=== PATIENT | female | born 1990 | race Caucasian/White ===

== ENCOUNTER → 2016-05-16 | Outpatient (CLI) | payer OTHER ==
--- NOTE | 2016-05-16 11:55 | XR ---
EXAMINATION TYPE: XR lumbar spine 2 or 3V DATE OF EXAM ORDERED: 05/16/2016 11:19 AM HISTORY: M54.5 LBP. COMPARISON: None. FINDINGS: Vertebral body height and alignment are maintained. There may be some mild disc space narr owing at L5-S1. The remaining disc levels are normal. The facets. Unremarkable. The pedicles are inta ct. IMPRESSION: 1. NO ACUTE OSSEOUS LESION. 2. I CANNOT EXCLUDE MILD DISC SPACE LOSS AT L5-S1.
== END ==
LOC: RADXRMAIN 11:05
PROVIDERS: ATTEND Physician Assistant
DX: M54.5 Low back pain (principal)
CPT/HCPCS: 72100

== ENCOUNTER → 2016-09-04 | Outpatient (CLI) | payer OTHER ==
--- NOTE | 2016-09-04 09:34 | MR ---
EXAMINATION TYPE: MR lumbar spine wo con DATE OF EXAM: 09/04/2016 COMPARISON: Plain film 05/16/2016 HISTORY: intervertebral disc degeneration, low back pain TECHNIQUE: Multiplanar, multisequence images of the lumbar spine were acquired. L1-L2: Normal disc appearance without desiccation. No herniation, protrusion or disc bulging. No ca nal stenosis is present. Foramina are patent bilaterally. L2-L3: Normal disc appearance without desiccation. No herniation, protrusion or disc bulging. No ca nal stenosis is present. There is mild facet arthropathy. Foramina are patent bilaterally. L3-L4: Mild facet arthropathy is noted. No disc herniation or significant central stenosis, neural fo raminal encroachment. L4-L5: Normal disc appearance without desiccation. No herniation, protrusion or disc bulging. No ca nal stenosis is present. Hypertrophy of the ligamentum flavum encroaches only minimally on the latera l recesses Foramina are patent bilaterally. L5-S1: Normal disc appearance without desiccation. No herniation, protrusion or disc bulging. No ca nal stenosis is present. There is mild facet arthropathy Foramina are patent bilaterally. Lumbar segments are intact. No paraspinal masses are identified. Conus medullaris has a normal appe arance. Lumbar vertebral bodies show preserved height and alignment. Multilevel Schmorl's node format ion is present. Loss of disc height and signal present at L5-S1. IMPRESSION: No evident disc herniation. Facet arthropathy is mild.
== END | disposition home or self-care (01) ==
LOC: RADMRIMAIN 07:02
PROVIDERS: ATTEND Physician Assistant
DX: M46.06 Spinal enthesopathy, lumbar region (principal)
CPT/HCPCS: 72148

== ENCOUNTER 2017-11-08 11:31 | Emergency (ER) | payer OTHER ==
[2017-11-08 11:51] VITALS: RESP 18
[2017-11-08] MEDS ORDERED: SODIUM CHLORIDE 0.9% 1,000 ML IV ONE (13:06)
[2017-11-08] MEDS ORDERED: CLINDAMYCIN 600 MG in DEXTROSE 5% IN WATER 50 ML IVPB STA ×2 (13:06)
--- NOTE | 2017-11-08 13:06 | ED ---
Skin/Abscess/FB HPI - General Chief complaint: Skin/Abscess/Foreign Body Stated complaint: Abscess Time Seen by Provider: 11/08/17 12:05 Source: patient, RN notes reviewed, old records reviewed Mode of arrival: ambulatory Limitations: no limitations - History of Present Illness Initial comments: Patient is a 27-year-old female type I diabetic presents emergency department chief complaint of an abscess over her left buttocks. Patient reports that she called her doctor and her doctor prescribed her azithromycin. She reports she took antibiotic for 5 days. She states that since getting any better. She initially did have some drainage from the site. Patient reports that she's had multiple infection such as this in the past. Patient states she's had no fevers or chills. She reports that she's had no pain with bowel habits or urination. Her ports that she does have a history of MRSA. Patient denies any recent fever, chills, shortness of breath, chest pain, back pain, abdominal pain , nausea vomiting, numbness or tingling, dysuria or hematuria, constipation or diarrhea, headaches or visual changes, or any other current symptoms - Related Data Home Medications Medication Instructions Recorded Confirmed Insulin Aspart (For Pump) [NovoLOG 0.01 unit SQ-PUMP CONTINUOUS 11/08/17 (For Pump)] Kelnor 1 tab PO DAILY 11/08/17 11/08/17 Lisinopril [Zestril] 10 mg PO DAILY 11/08/17 11/08/17 Previous Rx's Medication Instructions Recorded HYDROcodone/APAP 5-325MG [[place] 1 tab PO Q6HR PRN #10 tab 11/08/17 5-325] Sulfamethox-Tmp 800-160Mg [Bactrim 2 tab PO Q12HR #40 tab 11/08/17 DS 800-160 mg] Allergies Allergy/AdvReac Type Severity Reaction Status Date / Time cephalexin [From Keflex] Allergy Unknown Verified 11/08/17 12:34 Review of Systems ROS Statement: Those systems with pertinent positive or pertinent negative responses have been documented in the HPI. ROS Other: All systems not noted in ROS Statement are negative. Past Medical History Past Medical History: Asthma, Diabetes Mellitus, GERD/Reflux, Skin Disorder Additional Past Medical History / Comment(s): hx. hiatal hernia, wounds in groin area, buttocks-thought was ingrown hairs History of Any Multi-Drug Resistant Organisms: MRSA Date of last positivie culture/infection: 2009 MDRO Source:: unknown Past Surgical History: Section Additional Past Surgical History / Comment(s): cervical abblation Past Anesthesia/Blood Transfusion Reactions: No Reported Reaction, Motion Sickness Past Psychological History: Depression Smoking Status: Current some day smoker Past Alcohol Use History: Occasional Past Drug Use History: None Reported - Past Family History Mother Family Medical History: Thyroid Disorder Additional Family Medical History / Comment(s): gestational diabetes Father Additional Family Medical History / Comment(s): crohnes disease General Exam - General Exam Comments Initial Comments: Patient is a 27-year-old female. Alert and oriented 3. She is here with her mother. Appears in no significant distress at this time. Limitations: no limitations General appearance: alert, in no apparent distress Head exam: Present: atraumatic, normocephalic, normal inspection Eye exam: Present: normal appearance, PERRL, EOMI. Absent: scleral icterus, conjunctival injection, periorbital swelling ENT exam: Present: normal exam, mucous membranes moist Neck exam: Present: normal inspection. Absent: tenderness, meningismus, lymphadenopathy Respiratory exam: Present: normal lung sounds bilaterally. Absent: respiratory distress, wheezes, rales, rhonchi, stridor Cardiovascular Exam: Present: regular rate, normal rhythm, normal heart sounds. Absent: systolic murmur, diastolic murmur, rubs, gallop, clicks GI/Abdominal exam: Present: soft, normal bowel sounds. Absent: distended, tenderness, guarding, rebound, rigid External exam: Present: other (Patient has a 3 cm x 4 cm abscess over the left buttocks. No evidence of rectal or perianal abscess. The abscess is not near the rectum.). Absent: normal external exam Extremities exam: Present: normal inspection, full ROM, normal capillary refill. Absent: tenderness, pedal edema, joint swelling, calf tenderness Back exam: Present: normal inspection Neurological exam: Present: alert, oriented X3, CN II-XII intact Psychiatric exam: Present: normal affect, normal mood Skin exam: Present: warm, dry, intact, normal color. Absent: rash Course Vital Signs 11/08/17 11/08/17 11:48 15:41 Temperature 98.4 F 98.1 F Pulse Rate 113 H 96 Respiratory 18 18 Rate Blood Pressure 116/81 123/84 O2 Sat by Pulse 99 96 Oximetry Procedures - Incision & Drainage Site: buttock (Left buttock) Size (cm): 4 Anesthetic Used: lidocaine 1% Amount (mLs): 5 I&D Cleaning Method: Iodine Sterile Field Used?: Yes Scalpel Used: #11 I&D Drainage Obtained: Pus, Blood Packing: Iodoform Culture Obtained?: Yes Complications: pain Patient Tolerated Procedure: well, no complications Medical Decision Making - Medical Decision Making 27-year-old female stay with one week of abscess of her left buttocks. PCP prescribed her azithromycin. She reports abscess continued to grow. Patient last evening antibiotic was yesterday. Today she presents with worsening meter abscess over left buttocks. No evidence of rectal abscess or perianal abscess at this time. The abscess is far removed from the actual rectum. Ultrasound was placed over the area and shows a 3 cm deep abscess. Patient was anesthetized with 1% lidocaine box 5 mL infiltrated around the area. Patient's wound was opened with an 11 blade and approximately 10 mL of purulent fluid was removed. I did place iodoform packing. I advised Patient she should follow-up with the on-call general surgeon. Given a referral for Dr. Montalvo. I discussed that she should return to the emergency department if any alarming signs or symptoms occur. During sits baths. I will start the Patient on Bactrim. I did obtain blood work and culture. White blood cell count normal limits. Vital signs are stable. - Lab Data Result diagrams: 11/08/17 13:45 11/08/17 13:45 Lab Results 11/08/17 11/08/17 Range/Units 13:45 13:45 WBC 8.9 (3.8-10.6) k/uL RBC 4.41 (3.80-5.40) m/uL Hgb 13.1 (11.4-16.0) gm/dL Hct 38.1 (34.0-46.0) % MCV 86.5 (80.0-100.0) fL MCH 29.8 (25.0-35.0) pg MCHC 34.4 (31.0-37.0) g/dL RDW 13.1 (11.5-15.5) % Plt Count 279 (150-450) k/uL Neutrophils % 64 % Lymphocytes % 28 % Monocytes % 5 % Eosinophils % 1 % Basophils % 0 % Neutrophils # 5.7 (1.3-7.7) k/uL Lymphocytes # 2.5 (1.0-4.8) k/uL Monocytes # 0.5 (0-1.0) k/uL Eosinophils # 0.1 (0-0.7) k/uL Basophils # 0.0 (0-0.2) k/uL Sodium 141 (137-145) mmol/L Potassium 3.3 L (3.5-5.1) mmol/L Chloride 106 (98-107) mmol/L Carbon Dioxide 27 (22-30) mmol/L Anion Gap 8 mmol/L BUN 11 (7-17) mg/dL Creatinine 0.42 L (0.52-1.04) mg/dL Est GFR (CKD-EPI)AfAm >90 (>60 ml/min/1.73 sqM) Est GFR (CKD-EPI)NonAf >90 (>60 ml/min/1.73 sqM) Glucose 88 (74-99) mg/dL Calcium 9.3 (8.4-10.2) mg/dL Total Bilirubin 0.4 (0.2-1.3) mg/dL AST 10 L (14-36) U/L ALT 16 (9-52) U/L Alkaline Phosphatase 94 (38-126) U/L Total Protein 6.6 (6.3-8.2) g/dL Albumin 3.3 L (3.5-5.0) g/dL Disposition Clinical Impression: Left buttock abscess Disposition: HOME SELF-CARE Condition: Good Instructions: Abscess (ED) Additional Instructions: Patient advised to follow-up with primary care physician and general surgeon. Patient should have the packing removed in 2 days. Do warm salt soaks. Return to the emergency department if any alarming signs or symptoms occur. Prescriptions: HYDROcodone/APAP 5-325MG [[place] 5-325] 1 tab PO Q6HR PRN #10 tab PRN Reason: Pain Sulfamethox-Tmp 800-160Mg [Bactrim DS 800-160 mg] 2 tab PO Q12HR #40 tab Is patient prescribed a controlled substance at d/c from ED?: No Referrals: Mohit Curran MD [Primary Care Provider] - 1-2 days Meredith Louis MD [STAFF PHYSICIAN] - 1-2 days Time of Disposition: 15:09
[2017-11-08] MEDS ORDERED: SODIUM CHLORIDE 0.9% 1,000 ML IV SCH (13:15)
[2017-11-08] MEDS ORDERED: MORPHINE SULFATE 4 MG/ML SYRINGE IVP STA (13:21)
[2017-11-08 13:56] LABS: Basophils % (A) 0 %; Eosinophils # (A) 0.1 k/uL (0-0.7); Eosinophils % (A) 1 %; HCT 38.1 % (34.0-46.0); HGB 13.1 gm/dL (11.4-16.0); Lymphocytes # (A) 2.5 k/uL (1.0-4.8); Lymphocytes % (A) 28 %; MCH 29.8 pg (25.0-35.0); MCHC 34.4 g/dL (31.0-37.0); MCV 86.5 fL (80.0-100.0); Mean Platelet Volume 6.8; Monocytes # (A) 0.5 k/uL (0-1.0); Monocytes % (A) 5 %; Neutrophils # (A) 5.7 k/uL (1.3-7.7); Neutrophils % (A) 64 %; Platelet Count 279 k/uL (150-450); RBC 4.41 m/uL (3.80-5.40); RDW 13.1 % (11.5-15.5); WBC 8.9 k/uL (3.8-10.6)
[2017-11-08 14:06] LABS: ALT 16 U/L (9-52); AST 10 U/L (14-36); Albumin 3.3 g/dL (3.5-5.0); Alkaline Phosphatase 94 U/L (38-126); Anion Gap 8 mmol/L; Blood Urea Nitrogen 11 mg/dL (7-17); Calcium 9.3 mg/dL (8.4-10.2); Carbon Dioxide 27 mmol/L (22-30); Chloride 106 mmol/L (98-107); Glucose 88 mg/dL (74-99); Potassium 3.3 mmol/L (3.5-5.1); Sodium 141 mmol/L (137-145); Total Bilirubin 0.4 mg/dL (0.2-1.3); Total Protein 6.6 g/dL (6.3-8.2)
[2017-11-08] MEDS ORDERED: LIDOCAINE 1% INJ 10MG/ML (20 ML MDV) SQ STA (14:13)
[2017-11-08] MEDS ORDERED: SULFAMETH-TMP DS STARTER PACK 2 TAB BTL PO STA (15:38)
[2017-11-08 15:42] VITALS: BP 123/84; PULSE 96; TEMP 98.1
== END 2017-11-08 15:41 | disposition home or self-care (01) ==
LOC: EC 11:31
DX: L02.31 Cutaneous abscess of buttock (principal); E11.9 Type 2 diabetes mellitus without complications; F17.200 Nicotine dependence, unspecified, uncomplicated; Z79.4 Long term (current) use of insulin; Z79.899 Other long term (current) drug therapy; Z88.1 Allergy status to other antibiotic agents
CPT/HCPCS: 99283; 10060; 36415; 80053; 85025; 87040; 87070; 87205; 96365; 96375; 96361; J2270; J2001

== ENCOUNTER 2017-11-09 17:20 | Emergency (ER) | payer OTHER ==
--- NOTE | 2017-11-09 19:34 | ED ---
General Adult HPI - General Chief complaint: Skin/Abscess/Foreign Body Stated complaint: Abscess on L Buttock Time Seen by Provider: 11/09/17 19:33 Source: patient Mode of arrival: ambulatory Limitations: no limitations - History of Present Illness Initial comments: Patti is a 27-year-old type I diabetic who was evaluated in our emergency department yesterday for an abscess on her left buttock, the abscess was incised drained and packed. Patient was advised to follow up with general surgery for reevaluation. Patient reports that she called the general surgeon' s office today however they were unable to see patient and she was told that she would not be able to follow up until mid November. At that time she was told to come back to the ER for reevaluation. denies any new complaints. She reports the pain that she was extracting prior to the I&D has improved significantly. She advised parents any fevers, chills nausea or vomiting. She has noticed some discharge from the I&D site. She states that her aunt is a home health care nurse who does wound care and would be able to help her care for this wound at home however she was uncertain if she is supposed to take all of the packing out or just remove some of the packing and she wanted further advice on management of this abscess. - Related Data Home Medications Medication Instructions Recorded Confirmed Insulin Aspart (For Pump) [NovoLOG 0.01 unit SQ-PUMP CONTINUOUS 11/08/17 (For Pump)] Kelnor 1 tab PO DAILY 11/08/17 11/08/17 Lisinopril [Zestril] 10 mg PO DAILY 11/08/17 11/08/17 Previous Rx's Medication Instructions Recorded HYDROcodone/APAP 5-325MG [[place]cer 1 tab PO Q6HR PRN #10 tab 11/08/17 5-325] Sulfamethox-Tmp 800-160Mg [Bactrim 2 tab PO Q12HR #40 tab 11/08/17 DS 800-160 mg] Allergies Allergy/AdvReac Type Severity Reaction Status Date / Time cephalexin [From Keflex] Allergy Unknown Verified 11/09/17 17:46 Review of Systems ROS Statement: Those systems with pertinent positive or pertinent negative responses have been documented in the HPI. ROS Other: All systems not noted in ROS Statement are negative. Past Medical History Past Medical History: Asthma, Diabetes Mellitus, GERD/Reflux, Skin Disorder Additional Past Medical History / Comment(s): hx. hiatal hernia, wounds in groin area, buttocks-thought was ingrown hairs History of Any Multi-Drug Resistant Organisms: MRSA Date of last positivie culture/infection: 2009 MDRO Source:: unknown Past Surgical History: Section Additional Past Surgical History / Comment(s): cervical abblation Past Anesthesia/Blood Transfusion Reactions: No Reported Reaction, Motion Sickness Past Psychological History: Depression Smoking Status: Current some day smoker Past Alcohol Use History: Occasional Past Drug Use History: None Reported - Past Family History Mother Family Medical History: Thyroid Disorder Additional Family Medical History / Comment(s): gestational diabetes Father Additional Family Medical History / Comment(s): crohnes disease General Exam - General Exam Comments Initial Comments: GENERAL: Patient is well-developed and well-nourished. Patient is nontoxic and well- hydrated and is in no distress. HENT: Normocephalic, Atraumatic. Neck is soft and supple. No significant lymphadenopathy is noted. Oropharynx is clear. Moist mucous membranes. Neck has full range of motion without eliciting any pain. EYES: The sclera were anicteric and conjunctiva were pink and moist. Extraocular movements were intact and pupils were equal round and reactive to light. Eyelids were unremarkable. PULMONARY: Unlabored respirations. Good breath sounds bilaterally. No audible rales rhonchi or wheezing was noted. CARDIOVASCULAR: There is a regular rate and rhythm without any murmurs gallops or rubs. ABDOMEN: Soft and nontender with normal bowel sounds. SKIN: Buttock with multiple lesions, packed abscess with no surrounding cellulitis NEUROLOGIC: Patient is alert and oriented x3. Cranial nerves II through XII are grossly intact. Motor and sensory are also intact. Normal speech, volume and content. Symmetrical smile. MUSCULOSKELETAL: Normal extremities with adequate strength and full range of motion. No lower extremity swelling or edema. No calf tenderness. LYMPHATICS: No significant lymphadenopathy is noted PSYCHIATRIC: Normal psychiatric evaluation. Limitations: no limitations Limitations: no limitations Course Vital Signs 11/09/17 11/09/17 17:44 20:38 Temperature 99.1 F 98.8 F Pulse Rate 100 97 Respiratory 20 18 Rate Blood Pressure 103/62 108/60 O2 Sat by Pulse 98 99 Oximetry Medical Decision Making - Medical Decision Making Patient seen and evaluated, history obtained from the patient and review of medical record Physical exam reveals an abscess on her buttock with packing in place. Patient unable to follow-up with Gen. surgery. I waited abscess, at this time I don't feel the patient requires emergent surgical intervention. I discussed with the patient that she can remove approximately 1 cm of the abscess packing daily until all the packing is removed. Local wound care was discussed. Avoidance of baths. Showering keep the area clean. Return to the emergency department for any acute worsening or if she develops any pain in the rectum or pain with defecation. All questions pertaining to care were answered the best my ability the patient was referred to multiple surgeons for follow-up as this is a recurrent problem for her and she wants to discuss definitive management. Disposition Clinical Impression: Abscess Disposition: HOME SELF-CARE Condition: Good Instructions: Abscess Incision and Drainage (ED), Abscess (ED) Additional Instructions: Take showers not baths, keep the abscess area clean. Full approximately 1 cm of packing from the abscess daily. Return to the ER for any worsening pain, redness, signs of infections or pain with bowel movements. Is patient prescribed a controlled substance at d/c from ED?: No Referrals: Mohit Curran MD [Primary Care Provider] - 1-2 days Philip Dupont MD [Medical Doctor] - 1-2 days Edmundo Cabrera MD [STAFF PHYSICIAN] - 1-2 days Time of Disposition: 20:20
[2017-11-09 20:39] VITALS: BP 108/60; PULSE 97; RESP 18; TEMP 98.8
== END 2017-11-09 20:39 | disposition home or self-care (01) ==
LOC: EEVIPCON 17:20 → EC 17:20
DX: L02.31 Cutaneous abscess of buttock (principal); E10.9 Type 1 diabetes mellitus without complications; F17.200 Nicotine dependence, unspecified, uncomplicated; Z86.14 Personal history of Methicillin resistant Staphylococcus aureus infection; Z79.3 Long term (current) use of hormonal contraceptives; Z79.4 Long term (current) use of insulin; Z79.899 Other long term (current) drug therapy; Z88.1 Allergy status to other antibiotic agents
CPT/HCPCS: 99283

== ENCOUNTER 2019-04-14 15:40 | Emergency (ER) | payer OTHER ==
[2019-04-14 15:54] VITALS: RESP 18; TEMP 98.2
[2019-04-14] MEDS ORDERED: SODIUM CHLORIDE 0.9% 1,000 ML IV STA (16:22)
--- NOTE | 2019-04-14 16:38 | ED ---
General Adult HPI - General Chief complaint: Recheck/Abnormal Lab/Rx Stated complaint: Low BP, leg swelling Time Seen by Provider: 04/14/19 16:16 Source: patient, RN notes reviewed, old records reviewed Mode of arrival: ambulatory - History of Present Illness Initial comments: 38-year-old female history of type 1 diabetes presenting for evaluation of hypotension. Patient was sent from the primary care office with low blood pressure. She was initiated on lisinopril and recent hospital admission which was for diabetic ketoacidosis. She was initially taking 10 mg however this was reduced to 5 mg in the past week. She's had persistent dizziness and lightheadedness over the past several weeks since discharge. She denies current vomiting or diarrhea. She has had subjective fever and chills. No dysuria. No abdominal pain. - Related Data Home Medications Medication Instructions Recorded Confirmed Insulin Aspart (For Pump) [NovoLOG 0.01 unit SQ-PUMP CONTINUOUS 11/08/17 11/08/17 (For Pump)] Kelnor 1 tab PO DAILY 11/08/17 11/08/17 Lisinopril [Zestril] 10 mg PO DAILY 11/08/17 11/08/17 Previous Rx's Medication Instructions Recorded HYDROcodone/APAP 5-325MG [Laughlin 1 tab PO Q6HR PRN #10 tab 11/08/17 5-325] Sulfamethox-Tmp 800-160Mg [Bactrim 2 tab PO Q12HR #40 tab 11/08/17 DS 800-160 mg] Allergies Allergy/AdvReac Type Severity Reaction Status Date / Time cephalexin [From Keflex] Allergy Unknown Verified 04/14/19 15:54 Review of Systems ROS Statement: Those systems with pertinent positive or pertinent negative responses have been documented in the HPI. ROS Other: All systems not noted in ROS Statement are negative. Past Medical History Past Medical History: Asthma, Diabetes Mellitus, GERD/Reflux, Skin Disorder Additional Past Medical History / Comment(s): hx. hiatal hernia, wounds in groin area, buttocks-thought was ingrown hairs History of Any Multi-Drug Resistant Organisms: MRSA Date of last positivie culture/infection: 2009 MDRO Source:: unknown Past Surgical History: Section Additional Past Surgical History / Comment(s): cervical abblation Past Anesthesia/Blood Transfusion Reactions: No Reported Reaction, Motion Sickness Past Psychological History: Depression Smoking Status: Current some day smoker Past Alcohol Use History: Occasional Past Drug Use History: None Reported - Past Family History Mother Family Medical History: Thyroid Disorder Additional Family Medical History / Comment(s): gestational diabetes Father Additional Family Medical History / Comment(s): crohnes disease General Exam General appearance: alert, in no apparent distress Head exam: Present: atraumatic, normocephalic Eye exam: Present: normal appearance, PERRL ENT exam: Present: normal exam Neck exam: Present: normal inspection. Absent: tenderness, meningismus Respiratory exam: Present: normal lung sounds bilaterally. Absent: respiratory distress, wheezes Cardiovascular Exam: Present: normal rhythm, tachycardia GI/Abdominal exam: Present: soft. Absent: distended, tenderness, guarding, rebound Extremities exam: Present: pedal edema Neurological exam: Present: alert, oriented X3, CN II-XII intact. Absent: motor sensory deficit Psychiatric exam: Present: normal affect, normal mood Course Vital Signs 04/14/19 04/14/19 04/14/19 15:49 16:53 17:30 Temperature 98.2 F Pulse Rate 113 H 107 H 102 H Respiratory 18 18 18 Rate Blood Pressure 111/76 110/78 105/73 O2 Sat by Pulse 100 100 99 Oximetry 04/14/19 19:00 Temperature 98.2 F Pulse Rate 108 H Respiratory 18 Rate Blood Pressure 112/77 O2 Sat by Pulse 99 Oximetry EKG Findings - EKG Comments: EKG Findings:: EKG: Normal sinus rhythm, rate of 100, CO interval 128, QRS duration 96, QTC [address] segment elevation Medical Decision Making - Medical Decision Making 28-year-old female history of type 1 diabetes presenting for evaluation of low blood pressure. Patient on lisinopril with no history of hypertension. This was started as a kidney protective strategy in this type I diabetic. She's been lightheaded for several weeks. Seen at the primary care office with a systolic blood pressure of 90 and sent into the emergency department for evaluation. No chest pain or dyspnea. No current vomiting or diarrhea. Initial vitals are stable blood pressure with low-grade tachycardia. EKG is sinus rhythm, rate of 100. She has a normal CBC, normal CMP, no anion gap metabolic acidosis, no signs of DKA. She has a glucose of 160 mildly elevated. She's given IV hydration blood pressure remained stable. She is eager for discharge she will discontinue her lisinopril and follow-up with her primary care physician. - Lab Data Result diagrams: 04/14/19 16:40 04/14/19 16:40 Lab Results 04/14/19 04/14/19 04/14/19 Range/Units 16:40 16:40 16:40 WBC 4.0 (3.8-10.6) k/uL RBC 4.10 (3.80-5.40) m/uL Hgb 12.2 (11.4-16.0) gm/dL Hct 36.4 (34.0-46.0) % MCV 88.8 (80.0-100.0) fL MCH 29.8 (25.0-35.0) pg MCHC 33.6 (31.0-37.0) g/dL RDW 13.6 (11.5-15.5) % Plt Count 221 (150-450) k/uL Neutrophils % 46 % Lymphocytes % 43 % Monocytes % 7 % Eosinophils % 1 % Basophils % 0 % Neutrophils # 1.8 (1.3-7.7) k/uL Lymphocytes # 1.7 (1.0-4.8) k/uL Monocytes # 0.3 (0-1.0) k/uL Eosinophils # 0.0 (0-0.7) k/uL Basophils # 0.0 (0-0.2) k/uL PT (9.0-12.0) sec INR (<1.2) APTT (22.0-30.0) sec Sodium 136 L (137-145) mmol/L Potassium 4.2 (3.5-5.1) mmol/L Chloride 103 (98-107) mmol/L Carbon Dioxide 27 (22-30) mmol/L Anion Gap 6 mmol/L BUN 17 (7-17) mg/dL Creatinine 0.42 L (0.52-1.04) mg/dL Est GFR (CKD-EPI)AfAm >90 (>60 ml/min/1.73 sqM) Est GFR (CKD-EPI)NonAf >90 (>60 ml/min/1.73 sqM) Glucose 170 H (74-99) mg/dL Plasma Lactic Acid Reggie 1.8 (0.7-2.0) mmol/L Calcium 8.9 (8.4-10.2) mg/dL Magnesium 1.8 (1.6-2.3) mg/dL Total Bilirubin 0.3 (0.2-1.3) mg/dL AST 21 (14-36) U/L ALT 15 (4-34) U/L Alkaline Phosphatase 70 (38-126) U/L Total Protein 6.0 L (6.3-8.2) g/dL Albumin 3.2 L (3.5-5.0) g/dL Urine Color Urine Appearance (Clear) Urine pH (5.0-8.0) Ur Specific [place] (1.001-1.035) Urine Protein (Negative) Urine Glucose (UA) (Negative) Urine Ketones (Negative) Urine Blood (Negative) Urine Nitrite (Negative) Urine Bilirubin (Negative) Urine Urobilinogen (<2.0) mg/dL Ur Leukocyte Esterase (Negative) Urine RBC (0-5) /hpf Urine WBC (0-5) /hpf Ur Squamous Epith Cells (0-4) /hpf Urine Bacteria (None) /hpf Urine Mucus (None) /hpf Urine HCG, Qual (Not Detectd) Acetone, Qual Negative (Negative) 04/14/19 04/14/19 04/14/19 Range/Units 16:40 16:40 16:40 WBC (3.8-10.6) k/uL RBC (3.80-5.40) m/uL Hgb (11.4-16.0) gm/dL Hct (34.0-46.0) % MCV (80.0-100.0) fL MCH (25.0-35.0) pg MCHC (31.0-37.0) g/dL RDW (11.5-15.5) % Plt Count (150-450) k/uL Neutrophils % % Lymphocytes % % Monocytes % % Eosinophils % % Basophils % % Neutrophils # (1.3-7.7) k/uL Lymphocytes # (1.0-4.8) k/uL Monocytes # (0-1.0) k/uL Eosinophils # (0-0.7) k/uL Basophils # (0-0.2) k/uL PT 9.3 (9.0-12.0) sec INR 0.9 (<1.2) APTT 22.5 (22.0-30.0) sec Sodium (137-145) mmol/L Potassium (3.5-5.1) mmol/L Chloride (98-107) mmol/L Carbon Dioxide (22-30) mmol/L Anion Gap mmol/L BUN (7-17) mg/dL Creatinine (0.52-1.04) mg/dL Est GFR (CKD-EPI)AfAm (>60 ml/min/1.73 sqM) Est GFR (CKD-EPI)NonAf (>60 ml/min/1.73 sqM) Glucose (74-99) mg/dL Plasma Lactic Acid Reggie (0.7-2.0) mmol/L Calcium (8.4-10.2) mg/dL Magnesium (1.6-2.3) mg/dL Total Bilirubin (0.2-1.3) mg/dL AST (14-36) U/L ALT (4-34) U/L Alkaline Phosphatase (38-126) U/L Total Protein (6.3-8.2) g/dL Albumin (3.5-5.0) g/dL Urine Color Yellow Urine Appearance Clear (Clear) Urine pH 6.0 (5.0-8.0) Ur Specific [place] 1.020 (1.001-1.035) Urine Protein 1+ H (Negative) Urine Glucose (UA) 3+ H (Negative) Urine Ketones Negative (Negative) Urine Blood Negative (Negative) Urine Nitrite Negative (Negative) Urine Bilirubin Negative (Negative) Urine Urobilinogen <2.0 (<2.0) mg/dL Ur Leukocyte Esterase Negative (Negative) Urine RBC 2 (0-5) /hpf Urine WBC 1 (0-5) /hpf Ur Squamous Epith Cells 3 (0-4) /hpf Urine Bacteria Rare H (None) /hpf Urine Mucus Occasional H (None) /hpf Urine HCG, Qual Not Detected (Not Detectd) Acetone, Qual (Negative) Disposition Clinical Impression: Diabetes, Hypotension Disposition: HOME SELF-CARE Condition: Good Instructions (If sedation given, give patient instructions): Hypotension (ED) Is patient prescribed a controlled substance at d/c from ED?: No Referrals: Mohit Curran MD [Primary Care Provider] - 1-2 days Time of Disposition: 19:40
[2019-04-14 17:04] LABS: Basophils % (A) 0 %; Eosinophils % (A) 1 %; HCT 36.4 % (34.0-46.0); HGB 12.2 gm/dL (11.4-16.0); Lymphocytes # (A) 1.7 k/uL (1.0-4.8); Lymphocytes % (A) 43 %; MCH 29.8 pg (25.0-35.0); MCHC 33.6 g/dL (31.0-37.0); MCV 88.8 fL (80.0-100.0); Mean Platelet Volume 7.1; Monocytes # (A) 0.3 k/uL (0-1.0); Monocytes % (A) 7 %; Neutrophils # (A) 1.8 k/uL (1.3-7.7); Neutrophils % (A) 46 %; Platelet Count 221 k/uL (150-450); RDW 13.6 % (11.5-15.5)
[2019-04-14 17:18] LABS: ALT 15 U/L (4-34); AST 21 U/L (14-36); African American GFR (CKD) >90 (>60 ml/min/1.73 sqM); Albumin 3.2 g/dL (3.5-5.0); Alkaline Phosphatase 70 U/L (38-126); Anion Gap 6 mmol/L; Blood Urea Nitrogen 17 mg/dL (7-17); Calcium 8.9 mg/dL (8.4-10.2); Carbon Dioxide 27 mmol/L (22-30); Chloride 103 mmol/L (98-107); Glucose 170 mg/dL (74-99); Magnesium 1.8 mg/dL (1.6-2.3); Non-African American GFR(CKD) >90 (>60 ml/min/1.73 sqM); Potassium 4.2 mmol/L (3.5-5.1); Sodium 136 mmol/L (137-145); Total Bilirubin 0.3 mg/dL (0.2-1.3)
--- NOTE | 2019-04-14 17:20 | XR ---
EXAMINATION: XR chest 2V DATE AND TIME: 04/14/2019 5:07 PM CLINICAL INDICATION: PHH; Weakness, hypotension, swelling TECHNIQUE: Departmental protocol COMPARISON: None FINDINGS: The lungs are clear. The pleural spaces are negative. The cardiac silhouette is not enlarged. The remainder of the mediastinal silhouette is unremarkable. The skeletal structures and soft tissues are negative for acute findings. IMPRESSION: No acute process.
[2019-04-14 17:40] LABS: INR 0.9 (<1.2); Partial Thromboplastin Time 22.5 sec (22.0-30.0); Prothrombin Time 9.3 sec (9.0-12.0)
[2019-04-14 17:59] LABS: Bacteria,Urine Rare /hpf; Mucus,Urine Occasional /hpf; RBC,Urine 2 /hpf (0-5); Squamous Epithelial Cell,Urine 3 /hpf (0-4); WBC,Urine 1 /hpf (0-5)
[2019-04-14 18:34] LABS: Appearance,Urine Clear (Clear); Color,Urine Yellow; Glucose,Urine (UA) 3+ (Negative); Ketones,Urine Negative (Negative); Protein,Urine 1+ (Negative)
[2019-04-14 18:35] LABS: Bilirubin,Urine Negative (Negative); Blood,Urine Negative (Negative); Leukocyte Esterase,Urine Negative (Negative); Nitrite,Urine Negative (Negative); Urobilinogen,Urine <2.0 mg/dL (<2.0)
[2019-04-14 19:58] VITALS: BP 109/77; PULSE 102
== END 2019-04-14 19:57 | disposition home or self-care (01) ==
LOC: EC 15:40
DX: I95.9 Hypotension, unspecified (principal); E10.9 Type 1 diabetes mellitus without complications; R00.0 Tachycardia, unspecified; F17.200 Nicotine dependence, unspecified, uncomplicated; R50.9 Fever, unspecified; Z79.4 Long term (current) use of insulin; Z96.41 Presence of insulin pump (external) (internal); Z88.1 Allergy status to other antibiotic agents; Z79.3 Long term (current) use of hormonal contraceptives; Z86.14 Personal history of Methicillin resistant Staphylococcus aureus infection
CPT/HCPCS: 36415; 71046; 80053; 81001; 81025; 82009; 83605; 83735; 85025; 85610; 85730; 87040; 93005; 96360; 96361; 99284

== ENCOUNTER → 2019-11-08 | Outpatient (CLI) | payer OTHER ==
--- NOTE | 2019-11-08 15:19 | XR ---
EXAMINATION TYPE: XR ankle complete RT DATE OF EXAM: 11/08/2019 COMPARISON: NONE HISTORY: 29 year-old female right ankle pain TECHNIQUE: 3 views FINDINGS: The mortise view shows apparent widening at the distal tibiofibular overlap. Possible focal thickenin g of soft tissues along the posterior distal third leg at the expected myotendinous junction of the t riceps surae. This appearance may be technical due to patient's clothing. No acute fracture, subluxa tion, dislocation. IMPRESSION: 1. Age indeterminate high ankle sprain suggested given loss of the distal tibiofibular overlap on the mortise view. 2. Unable to exclude abnormal soft tissue thickening at the Achilles myotendinous junction. Recommend follow-up radiographs of the tibia/fibula to reassess this area. Remove clothing prior to radiograph s as appropriate.
== END | disposition home or self-care (01) ==
LOC: RADXRMAIN 10:20
PROVIDERS: ATTEND Nurse Practitioner Family
DX: S93.401A Sprain of unspecified ligament of right ankle, initial encounter (principal)

== ENCOUNTER 2019-11-14 18:06 | Emergency (ER) | payer OTHER ==
[2019-11-14] MEDS ORDERED: HYDROcodone/APAP 5-325MG 1 EACH TAB PO STA (19:08)
--- NOTE | 2019-11-14 19:27 | XR ---
EXAMINATION TYPE: XR ankle complete RT DATE OF EXAM: 11/14/2019 COMPARISON: 11/08/2019 HISTORY: Pain TECHNIQUE: 3 views FINDINGS: I see no fracture nor dislocation. Ankle mortise is anatomic. There is soft tissue swelling around the ankle joint. IMPRESSION: Soft tissue swelling. No fracture. Swelling increased compared to old exam.
--- NOTE | 2019-11-14 20:09 | US ---
EXAMINATION TYPE: US venous doppler duplex LE DATE OF EXAM: 11/14/2019 8:00 PM COMPARISON: NONE CLINICAL HISTORY: pain. Pain bilateral legs x 2 weeks. No hx of DVT. Patient does not take blood thin ners. SIDE PERFORMED: Bilateral TECHNIQUE: The lower extremity deep venous system is examined utilizing real time linear array sonog cb with graded compression, doppler sonography and color-flow sonography. VESSELS IMAGED: External Iliac Vein (EIV) Common Femoral Vein Deep Femoral Vein Greater Saphenous Vein * Femoral Vein Popliteal Vein Small Saphenous Vein * Proximal Calf Veins (* superficial vessels) Right Leg: No evidence of DVT in veins imaged at this time from prox calf veins to EIV. Left Leg: Hypoechoic area seen near vessels within left popliteal fossa measurin.9 x 1.9 x 1.6 c m. No evidence of DVT in veins imaged at this time from prox calf veins to EIV. IMPRESSION: There is small popliteal cyst on the left side. There is no evidence of deep vein thromb osis in both legs.
[2019-11-14 20:21] VITALS: BP 120/76; PULSE 96; RESP 16
--- NOTE | 2019-11-14 20:39 | ED ---
Extremity Problem HPI - General Chief complaint: Extremity Problem,Nontraumatic Stated complaint: recheck - rt foot swelling Time Seen by Provider: 11/14/19 18:38 Source: patient Mode of arrival: wheelchair Limitations: no limitations - History of Present Illness Initial comments: Patient is a 29-year-old female presents emergency room in with reported right ankle swelling. He states that her right ankle started swelling earlier in the week. She saw her primary care physician who sent her for an x-ray. They stated that it was negative for fracture. She has been using a crutch however has been ambulating on it. Noted that the swelling became worse and therefore came into the emergency room for further evaluation. Denies any inciting trauma. Denies history of DVT or PE. No chest pain or shortness of breath. Denies any family history of blood clotting disorders. No recent medication changes. Denies fevers or chills. No overlying skin changes other than swelling. Patient has had pain with ambulation. Has not taken anything for her symptoms at home. Concern for . There are no other alleviating, precipitating or modifying factors - Related Data Home Medications Medication Instructions Recorded Confirmed Insulin Aspart (For Pump) [NovoLOG 0.01 unit SQ-PUMP CONTINUOUS 11/08/1710/24 (For Pump)] Kelnor 1 tab PO DAILY 11/08/17 11/08/17 lisinopriL [Zestril] 10 mg PO DAILY 11/08/17 11/08/17 Previous Rx's Medication Instructions Recorded HYDROcodone/APAP 5-325MG [Stephenson 1 tab PO Q6HR PRN #10 tab 11/08/17 5-325] Sulfamethox-Tmp 800-160Mg [Bactrim 2 tab PO Q12HR #40 tab 11/08/17 DS 800-160 mg] Allergies Allergy/AdvReac Type Severity Reaction Status Date / Time cephalexin [From Keflex] Allergy Unknown Verified 11/14/19 18:24 Review of Systems ROS Statement: Those systems with pertinent positive or pertinent negative responses have been documented in the HPI. ROS Other: All systems not noted in ROS Statement are negative. Past Medical History Past Medical History: Asthma, Diabetes Mellitus, GERD/Reflux, Skin Disorder Additional Past Medical History / Comment(s): hx. hiatal hernia, wounds in groin area, buttocks-thought was ingrown hairs History of Any Multi-Drug Resistant Organisms: MRSA Date of last positivie culture/infection: 2009 MDRO Source:: unknown Past Surgical History: Section Additional Past Surgical History / Comment(s): cervical abblation Past Anesthesia/Blood Transfusion Reactions: No Reported Reaction, Motion Sickness Past Psychological History: Depression Smoking Status: Never smoker Past Alcohol Use History: Occasional Past Drug Use History: None Reported - Past Family History Mother Family Medical History: Thyroid Disorder Additional Family Medical History / Comment(s): gestational diabetes Father Additional Family Medical History / Comment(s): crohnes disease General Exam Limitations: no limitations Course Vital Signs 11/14/19 11/14/19 11/14/19 18:22 19:51 20:20 Temperature 99.1 F Pulse Rate 105 H 101 H 96 Respiratory 18 18 16 Rate Blood Pressure 114/78 120/77 120/76 O2 Sat by Pulse 99 100 100 Oximetry 11/14/19 20:56 Temperature 98.9 F Pulse Rate 96 Respiratory 16 Rate Blood Pressure 120/76 O2 Sat by Pulse 100 Oximetry Medical Decision Making - Medical Decision Making Upon arrival the patient was placed into room 32. A thorough history and physical exam was performed. I did recommend repeating x-ray of the patient's lower extreme a. Also recommended a Doppler ultrasound. Ultrasound is negative for DVT in either and bilateral lower exterminates. There is a localized area in the left popliteal fossa concerning for cyst. Patient's previous x-ray was concerning for a possible high ankle sprain. I discussed diagnosis, differential and treatment options. I did recommend placing the patient in a splint. She is to not ambulate on the right lower extremity. Rest, ice and elevate externally. She needs to follow up with orthopedics in regards to her pain. She has any new or worsening symptoms return to the emergency room. Patient was in agreement treatment plan and discharged home in stable condition Disposition Clinical Impression: Right leg swelling, Popliteal cyst, Ankle pain Disposition: HOME SELF-CARE Condition: Stable Instructions (If sedation given, give patient instructions): Ankle Sprain (ED) Additional Instructions: Rest, ice and elevate your right leg. I did recommend you follow up with orthopedics. Keep the splint dry and use the crutches. Return to the emergency room for any new or worsening symptoms Is patient prescribed a controlled substance at d/c from ED?: No Referrals: Mohit Curran MD [Primary Care Provider] - 1-2 days Nathanael Miller DO [Doctor of Osteopathic Medicine] - 1-2 days Time of Disposition: 20:38
[2019-11-14] MEDS ORDERED: ACET/COD 300 MG/30 MG STARTER PACK 6 TAB BTL PO STA (20:49)
[2019-11-14 20:57] VITALS: TEMP 98.9
== END 2019-11-14 21:01 | disposition home or self-care (01) ==
LOC: EC 18:06
DX: M71.21 Synovial cyst of popliteal space [Baker], right knee (principal); E11.9 Type 2 diabetes mellitus without complications; Z96.41 Presence of insulin pump (external) (internal); Z86.14 Personal history of Methicillin resistant Staphylococcus aureus infection; Z88.1 Allergy status to other antibiotic agents
CPT/HCPCS: 93970; 99284

== ENCOUNTER 2020-06-27 19:23 | Emergency (ER) | payer BC, OTHER ==
[2020-06-27 19:30] VITALS: BP 136/90; PULSE 111; RESP 20; TEMP 97.9
--- NOTE | 2020-06-27 20:40 | XR ---
EXAMINATION TYPE: XR chest 2V DATE OF EXAM: 06/27/2020 COMPARISON: 04/14/2019. HISTORY: Cough. TECHNIQUE: Frontal and lateral views of the chest are obtained. FINDINGS: There is no focal air space opacity, pleural effusion, or pneumothorax seen. The cardiac silhouette size is within normal limits. The osseous structures are intact. IMPRESSION: No acute cardiopulmonary process.
[2020-06-27 21:02] LABS: Basophils % (A) 0 %; Eosinophils % (A) 0 %; HCT 40.3 % (34.0-46.0); HGB 13.3 gm/dL (11.4-16.0); Lymphocytes # (A) 2.3 k/uL (1.0-4.8); Lymphocytes % (A) 28 %; MCH 28.6 pg (25.0-35.0); MCV 86.7 fL (80.0-100.0); Monocytes # (A) 0.4 k/uL (0-1.0); Monocytes % (A) 5 %; Neutrophils # (A) 5.4 k/uL (1.3-7.7); Neutrophils % (A) 65 %; Platelet Count 254 k/uL (150-450); RBC 4.65 m/uL (3.80-5.40); RDW 13.2 % (11.5-15.5); WBC 8.3 k/uL (3.8-10.6)
[2020-06-27 21:16] LABS: ALT 18 U/L (4-34); AST 23 U/L (14-36); African American GFR (CKD) >90 (>60 ml/min/1.73 sqM); Albumin 3.7 g/dL (3.5-5.0); Alkaline Phosphatase 99 U/L (38-126); Anion Gap 7 mmol/L; Blood Urea Nitrogen 24 mg/dL (7-17); Calcium 9.4 mg/dL (8.4-10.2); Carbon Dioxide 27 mmol/L (22-30); Chloride 102 mmol/L (98-107); Glucose 155 mg/dL (74-99); Magnesium 1.8 mg/dL (1.6-2.3); Non-African American GFR(CKD) >90 (>60 ml/min/1.73 sqM); Potassium 4.6 mmol/L (3.5-5.1); Sodium 136 mmol/L (137-145); Total Bilirubin 0.3 mg/dL (0.2-1.3); Total Protein 7.1 g/dL (6.3-8.2)
--- NOTE | 2020-06-27 21:44 | US ---
EXAMINATION TYPE: US venous doppler duplex LE DATE OF EXAM: 06/27/2020 9:32 PM COMPARISON: US CLINICAL HISTORY: bilateral lower extremity edema. Swelling. No hx of DVT. Patient does not take bloo d thinners. SIDE PERFORMED: Bilateral TECHNIQUE: The lower extremity deep venous system is examined utilizing real time linear array sonog cb with graded compression, doppler sonography and color-flow sonography. VESSELS IMAGED: Common Femoral Vein Deep Femoral Vein Greater Saphenous Vein * Femoral Vein Popliteal Vein Small Saphenous Vein * Proximal Calf Veins (* superficial vessels) Right Leg: No evidence of DVT in veins imaged at this time. -Hypoechoic area with hyperechoic center seen within the right groin: 1.5 x 1.3 x 0.8, consistent wit h a lymph node. Left Leg: No evidence of DVT in veins imaged at this time. -Hypoechoic area seen within left popliteal fossa near popliteal vessels: 3.2 x 2.8 x 1.7, compatible with Mota's cyst-Hypoechoic area with hyperechoic center seen within the left groin: 1.0 x 1.3 x 0. 9, consistent with lymph node. IMPRESSION: No evidence of bilateral lower extremity DVT. Left Mota's cyst. Incidental bilateral inguinal lymph nodes, likely reactive.
[2020-06-27 22:04] LABS: Appearance,Urine Clear (Clear); Bilirubin,Urine Negative (Negative); Blood,Urine Moderate (Negative); Color,Urine Light Yellow; Glucose,Urine (UA) 4+ (Negative); Hyaline Casts,Urine 1 /lpf (0-2); Ketones,Urine Negative (Negative); Leukocyte Esterase,Urine Trace (Negative); Mucus,Urine Rare /hpf; Nitrite,Urine Negative (Negative); PH, Urine 5.5 (5.0-8.0); Protein,Urine 2+ (Negative); RBC,Urine 2 /hpf (0-5); Specific Gravity,Urine 1.012 (1.001-1.035); Squamous Epithelial Cell,Urine <1 /hpf (0-4); Urobilinogen,Urine <2.0 mg/dL (<2.0); WBC,Urine 2 /hpf (0-5)
[2020-06-27 22:09] LABS: Glucose,Whole Blood 146 mg/dL (75-99)
--- NOTE | 2020-06-27 22:10 | ED ---
Extremity Problem HPI - General Chief complaint: Extremity Problem,Nontraumatic Stated complaint: Extremity Swelling Time Seen by Provider: 06/27/20 19:46 Source: patient Mode of arrival: ambulatory Limitations: no limitations - History of Present Illness Initial comments: 29-year-old female presents to emergency Department with chief complaint of bilateral lower extremity edema. Patient states this did not want for past 3 weeks of gradually increasing severity. Patient is type I diabetic and is currently on the insulin pump. She states her insulin is not well controlled with high readings and her hemoglobin A1c. Patient reports increasing bilateral lower extremity edema and he feels like her lower extremities are tight due to the swelling. She denies any chest pain or shortness of breath. She did report an occasional cough. patient is concerned her renal function may be worsening. - Related Data Home Medications Medication Instructions Recorded Confirmed Insulin Aspart (For Pump) [NovoLOG 0.01 unit SQ-PUMP CONTINUOUS 11/08/17 06/27/20 (For Pump)] Acetaminophen Tab [Tylenol Tab] 1,000 mg PO Q6HR PRN 06/27/20 06/27/20 Ibuprofen [Advil] 600 mg PO Q8HR PRN 06/27/20 06/27/20 Magnesium 250 mg PO HS 06/27/20 06/27/20 lamoTRIgine [LaMICtal] 25 mg PO BID 06/27/20 06/27/20 traZODone HCL [Desyrel] 50 mg PO HS 06/27/20 06/27/20 Previous Rx's Medication Instructions Recorded Furosemide [Lasix] 20 mg PO DAILY #5 tab 06/27/20 Allergies Allergy/AdvReac Type Severity Reaction Status Date / Time cephalexin [From Keflex] Allergy Unknown Verified 06/27/20 20:47 Review of Systems ROS Statement: Those systems with pertinent positive or pertinent negative responses have been documented in the HPI. ROS Other: All systems not noted in ROS Statement are negative. Past Medical History Past Medical History: Asthma, Diabetes Mellitus, GERD/Reflux, Skin Disorder Additional Past Medical History / Comment(s): hx. hiatal hernia, wounds in groin area, buttocks-thought was ingrown hairs History of Any Multi-Drug Resistant Organisms: MRSA Date of last positivie culture/infection: 2009 MDRO Source:: unknown Past Surgical History: Section Additional Past Surgical History / Comment(s): cervical abblation Past Anesthesia/Blood Transfusion Reactions: No Reported Reaction, Motion Sickness Past Psychological History: Anxiety, Depression Smoking Status: Never smoker Past Alcohol Use History: Occasional Past Drug Use History: None Reported - Past Family History Mother Family Medical History: Thyroid Disorder Additional Family Medical History / Comment(s): gestational diabetes Father Additional Family Medical History / Comment(s): crohnes disease General Exam Limitations: no limitations General appearance: alert, in no apparent distress Head exam: Present: atraumatic, normocephalic, normal inspection Eye exam: Present: normal appearance, PERRL, EOMI Pupils: Present: normal accommodation ENT exam: Present: normal exam, normal oropharynx, mucous membranes moist, TM's normal bilaterally, normal external ear exam Neck exam: Present: normal inspection, full ROM. Absent: tenderness, lymphadenopathy Respiratory exam: Present: normal lung sounds bilaterally. Absent: respiratory distress, wheezes, rales, rhonchi, stridor, chest wall tenderness, accessory muscle use Cardiovascular Exam: Present: regular rate, normal rhythm, normal heart sounds. Absent: systolic murmur Extremities exam: Present: normal inspection, full ROM, normal capillary refill, pedal edema (+1 pitting bilateral lower extremity edema), other (Palpable DP and PT bilaterally). Absent: tenderness, joint swelling, calf tenderness Back exam: Present: normal inspection, full ROM. Absent: tenderness, CVA tenderness (R), CVA tenderness (L) Neurological exam: Present: alert, oriented X3 Psychiatric exam: Present: normal affect, normal mood Skin exam: Present: warm, dry, intact, normal color Course Vital Signs 06/27/20 19:27 Temperature 97.9 F Pulse Rate 111 H Respiratory 20 Rate Blood Pressure 136/90 O2 Sat by Pulse 100 Oximetry Medical Decision Making - Medical Decision Making 29-year-old female with history of type 1 diabetes presents emergency Department with a chief complaint of leg swelling. On physical examination, she has +1 pitting edema bilaterally. Lungs are clear to auscultation. BUN of 24 creatinine of 0.40. CMP unremarkable. Glucose is 156. Initial troponins are negative. BNP is 79. UA shows no ketones but she does have positive blood secondary to currently being on her menstrual period.bilateral lower extremity ultrasound reveals no signs of DVT. There is left sided Mota's cyst and inguinal lymph nodes. Patient pierced a fluid overloaded. I will give 40 mg of IV Lasix. We'll discharge with 5 days of 20 mg by mouth Lasix daily. She will follow up with her primary care physician or her correction officer head. Return parameters were discussed with patient is understanding and agreeable. Case discussed with physician. - Lab Data Result diagrams: 06/27/20 20:36 06/27/20 20:36 Lab Results 06/27/20 06/27/20 06/27/20 Range/Units 20:36 20:36 20:36 WBC 8.3 (3.8-10.6) k/uL RBC 4.65 (3.80-5.40) m/uL Hgb 13.3 (11.4-16.0) gm/dL Hct 40.3 (34.0-46.0) % MCV 86.7 (80.0-100.0) fL MCH 28.6 (25.0-35.0) pg MCHC 33.0 (31.0-37.0) g/dL RDW 13.2 (11.5-15.5) % Plt Count 254 (150-450) k/uL MPV 7.0 Neutrophils % 65 % Lymphocytes % 28 % Monocytes % 5 % Eosinophils % 0 % Basophils % 0 % Neutrophils # 5.4 (1.3-7.7) k/uL Lymphocytes # 2.3 (1.0-4.8) k/uL Monocytes # 0.4 (0-1.0) k/uL Eosinophils # 0.0 (0-0.7) k/uL Basophils # 0.0 (0-0.2) k/uL Sodium 136 L (137-145) mmol/L Potassium 4.6 (3.5-5.1) mmol/L Chloride 102 (98-107) mmol/L Carbon Dioxide 27 (22-30) mmol/L Anion Gap 7 mmol/L BUN 24 H (7-17) mg/dL Creatinine 0.40 L (0.52-1.04) mg/dL Est GFR (CKD-EPI)AfAm >90 (>60 ml/min/1.73 sqM) Est GFR (CKD-EPI)NonAf >90 (>60 ml/min/1.73 sqM) Glucose 155 H (74-99) mg/dL POC Glucose (mg/dL) (75-99) mg/dL POC Glu Toxicologist ID Calcium 9.4 (8.4-10.2) mg/dL Magnesium 1.8 (1.6-2.3) mg/dL Total Bilirubin 0.3 (0.2-1.3) mg/dL AST 23 (14-36) U/L ALT 18 (4-34) U/L Alkaline Phosphatase 99 (38-126) U/L Troponin I <0.012 (0.000-0.034) ng/mL NT-Pro-B Natriuret Pep pg/mL Total Protein 7.1 (6.3-8.2) g/dL Albumin 3.7 (3.5-5.0) g/dL Urine Color Urine Appearance (Clear) Urine pH (5.0-8.0) Ur Specific [place] (1.001-1.035) Urine Protein (Negative) Urine Glucose (UA) (Negative) Urine Ketones (Negative) Urine Blood (Negative) Urine Nitrite (Negative) Urine Bilirubin (Negative) Urine Urobilinogen (<2.0) mg/dL Ur Leukocyte Esterase (Negative) Urine RBC (0-5) /hpf Urine WBC (0-5) /hpf Ur Squamous Epith Cells (0-4) /hpf Hyaline Casts (0-2) /lpf Urine Mucus (None) /hpf 06/27/20 06/27/20 06/27/20 Range/Units 20:36 20:36 22:06 WBC (3.8-10.6) k/uL RBC (3.80-5.40) m/uL Hgb (11.4-16.0) gm/dL Hct (34.0-46.0) % MCV (80.0-100.0) fL MCH (25.0-35.0) pg MCHC (31.0-37.0) g/dL RDW (11.5-15.5) % Plt Count (150-450) k/uL MPV Neutrophils % % Lymphocytes % % Monocytes % % Eosinophils % % Basophils % % Neutrophils # (1.3-7.7) k/uL Lymphocytes # (1.0-4.8) k/uL Monocytes # (0-1.0) k/uL Eosinophils # (0-0.7) k/uL Basophils # (0-0.2) k/uL Sodium (137-145) mmol/L Potassium (3.5-5.1) mmol/L Chloride (98-107) mmol/L Carbon Dioxide (22-30) mmol/L Anion Gap mmol/L BUN (7-17) mg/dL Creatinine (0.52-1.04) mg/dL Est GFR (CKD-EPI)AfAm (>60 ml/min/1.73 sqM) Est GFR (CKD-EPI)NonAf (>60 ml/min/1.73 sqM) Glucose (74-99) mg/dL POC Glucose (mg/dL) 146 H (75-99) mg/dL POC Glu Toxicologist ID Abisai Jasmine Calcium (8.4-10.2) mg/dL Magnesium (1.6-2.3) mg/dL Total Bilirubin (0.2-1.3) mg/dL AST (14-36) U/L ALT (4-34) U/L Alkaline Phosphatase (38-126) U/L Troponin I (0.000-0.034) ng/mL NT-Pro-B Natriuret Pep 79 pg/mL Total Protein (6.3-8.2) g/dL Albumin (3.5-5.0) g/dL Urine Color Light Yellow Urine Appearance Clear (Clear) Urine pH 5.5 (5.0-8.0) Ur Specific [place] 1.012 (1.001-1.035) Urine Protein 2+ H (Negative) Urine Glucose (UA) 4+ H (Negative) Urine Ketones Negative (Negative) Urine Blood Moderate H (Negative) Urine Nitrite Negative (Negative) Urine Bilirubin Negative (Negative) Urine Urobilinogen <2.0 (<2.0) mg/dL Ur Leukocyte Esterase Trace H (Negative) Urine RBC 2 (0-5) /hpf Urine WBC 2 (0-5) /hpf Ur Squamous Epith Cells <1 (0-4) /hpf Hyaline Casts 1 (0-2) /lpf Urine Mucus Rare H (None) /hpf - EKG Data EKG Comments: Sinus tachycardia, incomplete right bundle branch block Ventricular rate 109, GA 140, QRS 106, QTC 490. Disposition Clinical Impression: Bilateral lower extremity edema Disposition: HOME SELF-CARE Condition: Stable Instructions (If sedation given, give patient instructions): Leg Edema (ED) Additional Instructions: Take prescribed medication. Follow-up with an correction officer head. Return to emergency department if symptoms worsen. Prescriptions: Furosemide [Lasix] 20 mg PO DAILY #5 tab Is patient prescribed a controlled substance at d/c from ED?: No Referrals: Mohit Curran MD [Primary Care Provider] - 1-2 days Time of Disposition: 22:52
[2020-06-27] MEDS ORDERED: FUROSEMIDE 10 MG/ML 4 ML VIAL IV STA (22:34)
== END 2020-06-27 22:59 | disposition home or self-care (01) ==
LOC: EC 19:23
DX: R60.0 Localized edema (principal); J45.909 Unspecified asthma, uncomplicated; E11.9 Type 2 diabetes mellitus without complications; F32.9 Major depressive disorder, single episode, unspecified
CPT/HCPCS: 36415; 93005; 83880; 80053; 83735; 84484; 85025; 81001; 71046; 93970; 99284; 96374; J1940

== ENCOUNTER 2020-08-07 17:28 | Observation (INO) | payer BC ==
--- NOTE | 2020-08-07 18:10 | ED ---
General Adult HPI - General Chief complaint: Recheck/Abnormal Lab/Rx Stated complaint: Abd EKG Time Seen by Provider: 08/07/20 17:57 Source: patient, RN notes reviewed, old records reviewed Mode of arrival: ambulatory Limitations: no limitations - History of Present Illness Initial comments: 29-year-old female presenting with bilateral lower extremity swelling. His been ongoing for approximately 2 months. She has developed some dyspnea with exertion and dyspnea at rest. She was sent in by the primary care physician after being found tachycardic on EKG with persistent ongoing symptoms requiring further workup. She denies fever. Denies central chest pain. She is a type I diabetic. She states she's had ultrasound of the legs which was negative for DVT. - Related Data Home Medications Medication Instructions Recorded Confirmed Insulin Aspart (For Pump) [NovoLOG 0.01 unit SQ-PUMP CONTINUOUS 11/08/1707/24 (For Pump)] Acetaminophen Tab [Tylenol Tab] 1,000 mg PO Q6HR PRN 06/27/20 08/07/20 Ibuprofen [Advil] 800 mg PO Q8HR PRN 06/27/20 08/07/20 LORazepam [Ativan] 0.5 mg PO DAILY PRN 08/07/20 08/07/20 Vitamin C/Biotin [Hair, Skin and 1 tab PO DAILY 08/07/20 08/07/20 Nails] Allergies Allergy/AdvReac Type Severity Reaction Status Date / Time cephalexin [From Keflex] Allergy Unknown Verified 08/07/20 18:19 Review of Systems ROS Statement: Those systems with pertinent positive or pertinent negative responses have been documented in the HPI. ROS Other: All systems not noted in ROS Statement are negative. Past Medical History Past Medical History: Asthma, Diabetes Mellitus, GERD/Reflux, Skin Disorder Additional Past Medical History / Comment(s): hx. hiatal hernia, wounds in groin area, buttocks-thought was ingrown hairs History of Any Multi-Drug Resistant Organisms: MRSA Date of last positivie culture/infection: 2009 MDRO Source:: unknown Past Surgical History: Section Additional Past Surgical History / Comment(s): cervical abblation Past Anesthesia/Blood Transfusion Reactions: No Reported Reaction, Motion Sickness Past Psychological History: Anxiety, Depression Smoking Status: Never smoker Past Alcohol Use History: Occasional Past Drug Use History: None Reported - Past Family History Mother Family Medical History: Thyroid Disorder Additional Family Medical History / Comment(s): gestational diabetes Father Additional Family Medical History / Comment(s): crohnes disease General Exam Limitations: no limitations General appearance: alert, in no apparent distress Head exam: Present: atraumatic, normocephalic Eye exam: Present: normal appearance, PERRL ENT exam: Present: normal exam Neck exam: Present: normal inspection. Absent: tenderness, meningismus Respiratory exam: Present: normal lung sounds bilaterally. Absent: respiratory distress, wheezes Cardiovascular Exam: Present: normal rhythm, tachycardia GI/Abdominal exam: Present: soft. Absent: distended, tenderness, guarding, rebound Extremities exam: Present: normal capillary refill, pedal edema Neurological exam: Present: alert, oriented X3, CN II-XII intact. Absent: motor sensory deficit Psychiatric exam: Present: normal affect, normal mood Skin exam: Present: warm, dry, intact. Absent: cyanosis, diaphoretic Course Vital Signs 08/07/20 08/07/20 17:30 18:29 Temperature 97.6 F Pulse Rate 107 H Pulse Rate [ 101 H Left Sitting Radial] Respiratory 18 Rate Blood Pressure 133/91 O2 Sat by Pulse 98 Oximetry EKG Findings - EKG Comments: EKG Findings:: EKG: Sinus tachycardia, possible left atrial enlargement, rate of 101, MI interval 1:30, QRS duration 98, QTC 471, no ST segment elevation. Medical Decision Making - Medical Decision Making 29-year-old female sent to the emergency department for admission and workup of dyspnea and lower extremity swelling. Patient has stable vitals with a mild tachycardia. Chest x-ray negative for acute cardiac primary disease. She has a negative d-dimer, negative troponin, negative BNP. She does have an elevated blood sugar with a history of type 1 diabetes. She had been sent in with plans for echo. This will be ordered. Thyroid studies pending. Case had been discus sed with Jerry covering for Michelet Curran both before the patient arrived and after workup was initiated. Cardiology will be placed on consult. - Lab Data Result diagrams: 08/07/20 18:48 08/07/20 18:48 Lab Results 08/07/20 08/07/20 08/07/20 Range/Units 18:48 18:48 18:48 WBC 6.5 (3.8-10.6) k/uL RBC 4.66 (3.80-5.40) m/uL Hgb 13.9 (11.4-16.0) gm/dL Hct 40.0 (34.0-46.0) % MCV 85.9 (80.0-100.0) fL MCH 29.8 (25.0-35.0) pg MCHC 34.7 (31.0-37.0) g/dL RDW 13.0 (11.5-15.5) % Plt Count 242 (150-450) k/uL MPV 7.5 Neutrophils % 55 % Lymphocytes % 38 % Monocytes % 4 % Eosinophils % 1 % Basophils % 1 % Neutrophils # 3.6 (1.3-7.7) k/uL Lymphocytes # 2.5 (1.0-4.8) k/uL Monocytes # 0.3 (0-1.0) k/uL Eosinophils # 0.0 (0-0.7) k/uL Basophils # 0.0 (0-0.2) k/uL PT 9.4 (9.0-12.0) sec INR 0.9 (<1.2) APTT 21.6 L (22.0-30.0) sec D-Dimer 0.41 (<0.60) mg/L FEU Sodium 132 L (137-145) mmol/L Potassium 4.6 (3.5-5.1) mmol/L Chloride 102 (98-107) mmol/L Carbon Dioxide 24 (22-30) mmol/L Anion Gap 6 mmol/L BUN 19 H (7-17) mg/dL Creatinine 0.45 L (0.52-1.04) mg/dL Est GFR (CKD-EPI)AfAm >90 (>60 ml/min/1.73 sqM) Est GFR (CKD-EPI)NonAf >90 (>60 ml/min/1.73 sqM) Glucose 411 H (74-99) mg/dL Calcium 9.7 (8.4-10.2) mg/dL Magnesium 1.7 (1.6-2.3) mg/dL Total Bilirubin 0.3 (0.2-1.3) mg/dL AST 18 (14-36) U/L ALT 15 (4-34) U/L Alkaline Phosphatase 82 (38-126) U/L Troponin I (0.000-0.034) ng/mL NT-Pro-B Natriuret Pep pg/mL Total Protein 6.3 (6.3-8.2) g/dL Albumin 3.4 L (3.5-5.0) g/dL TSH 3.680 (0.465-4.680) mIU/L Urine Color Urine Appearance (Clear) Urine pH (5.0-8.0) Ur Specific [place] (1.001-1.035) Urine Protein (Negative) Urine Glucose (UA) (Negative) Urine Ketones (Negative) Urine Blood (Negative) Urine Nitrite (Negative) Urine Bilirubin (Negative) Urine Urobilinogen (<2.0) mg/dL Ur Leukocyte Esterase (Negative) Urine RBC (0-5) /hpf Urine WBC (0-5) /hpf Ur Squamous Epith Cells (0-4) /hpf Urine Bacteria (None) /hpf Hyaline Casts (0-2) /lpf Urine Mucus (None) /hpf Urine HCG, Qual (Not Detectd) Urine Opiates Screen (NotDetected) Ur Oxycodone Screen (NotDetected) Urine Methadone Screen (NotDetected) Ur Propoxyphene Screen (NotDetected) Ur Barbiturates Screen (NotDetected) U Tricyclic Antidepress (NotDetected) Ur Phencyclidine Scrn (NotDetected) Ur Amphetamines Screen (NotDetected) U Methamphetamines Scrn (NotDetected) U Benzodiazepines Scrn (NotDetected) Urine Cocaine Screen (NotDetected) U Marijuana (THC) Screen (NotDetected) 08/07/20 08/07/20 08/07/20 Range/Units 18:48 18:48 18:48 WBC (3.8-10.6) k/uL RBC (3.80-5.40) m/uL Hgb (11.4-16.0) gm/dL Hct (34.0-46.0) % MCV (80.0-100.0) fL MCH (25.0-35.0) pg MCHC (31.0-37.0) g/dL RDW (11.5-15.5) % Plt Count (150-450) k/uL MPV Neutrophils % % Lymphocytes % % Monocytes % % Eosinophils % % Basophils % % Neutrophils # (1.3-7.7) k/uL Lymphocytes # (1.0-4.8) k/uL Monocytes # (0-1.0) k/uL Eosinophils # (0-0.7) k/uL Basophils # (0-0.2) k/uL PT (9.0-12.0) sec INR (<1.2) APTT (22.0-30.0) sec D-Dimer (<0.60) mg/L FEU Sodium (137-145) mmol/L Potassium (3.5-5.1) mmol/L Chloride (98-107) mmol/L Carbon Dioxide (22-30) mmol/L Anion Gap mmol/L BUN (7-17) mg/dL Creatinine (0.52-1.04) mg/dL Est GFR (CKD-EPI)AfAm (>60 ml/min/1.73 sqM) Est GFR (CKD-EPI)NonAf (>60 ml/min/1.73 sqM) Glucose (74-99) mg/dL Calcium (8.4-10.2) mg/dL Magnesium (1.6-2.3) mg/dL Total Bilirubin (0.2-1.3) mg/dL AST (14-36) U/L ALT (4-34) U/L Alkaline Phosphatase (38-126) U/L Troponin I <0.012 (0.000-0.034) ng/mL NT-Pro-B Natriuret Pep 90 pg/mL Total Protein (6.3-8.2) g/dL Albumin (3.5-5.0) g/dL TSH (0.465-4.680) mIU/L Urine Color Light Yellow Urine Appearance Clear (Clear) Urine pH 5.5 (5.0-8.0) Ur Specific [place] 1.036 H (1.001-1.035) Urine Protein 2+ H (Negative) Urine Glucose (UA) 4+ H (Negative) Urine Ketones Negative (Negative) Urine Blood Moderate H (Negative) Urine Nitrite Negative (Negative) Urine Bilirubin Negative (Negative) Urine Urobilinogen <2.0 (<2.0) mg/dL Ur Leukocyte Esterase Moderate H (Negative) Urine RBC 10 H (0-5) /hpf Urine WBC 3 (0-5) /hpf Ur Squamous Epith Cells <1 (0-4) /hpf Urine Bacteria Rare H (None) /hpf Hyaline Casts 1 (0-2) /lpf Urine Mucus Rare H (None) /hpf Urine HCG, Qual (Not Detectd) Urine Opiates Screen Not Detected (NotDetected) Ur Oxycodone Screen Not Detected (NotDetected) Urine Methadone Screen Not Detected (NotDetected) Ur Propoxyphene Screen Not Detected (NotDetected) Ur Barbiturates Screen Not Detected (NotDetected) U Tricyclic Antidepress Not Detected (NotDetected) Ur Phencyclidine Scrn Not Detected (NotDetected) Ur Amphetamines Screen Not Detected (NotDetected) U Methamphetamines Scrn Not Detected (NotDetected) U Benzodiazepines Scrn Not Detected (NotDetected) Urine Cocaine Screen Not Detected (NotDetected) U Marijuana (THC) Screen Not Detected (NotDetected) 08/07/20 Range/Units 18:48 WBC (3.8-10.6) k/uL RBC (3.80-5.40) m/uL Hgb (11.4-16.0) gm/dL Hct (34.0-46.0) % MCV (80.0-100.0) fL MCH (25.0-35.0) pg MCHC (31.0-37.0) g/dL RDW (11.5-15.5) % Plt Count (150-450) k/uL MPV Neutrophils % % Lymphocytes % % Monocytes % % Eosinophils % % Basophils % % Neutrophils # (1.3-7.7) k/uL Lymphocytes # (1.0-4.8) k/uL Monocytes # (0-1.0) k/uL Eosinophils # (0-0.7) k/uL Basophils # (0-0.2) k/uL PT (9.0-12.0) sec INR (<1.2) APTT (22.0-30.0) sec D-Dimer (<0.60) mg/L FEU Sodium (137-145) mmol/L Potassium (3.5-5.1) mmol/L Chloride (98-107) mmol/L Carbon Dioxide (22-30) mmol/L Anion Gap mmol/L BUN (7-17) mg/dL Creatinine (0.52-1.04) mg/dL Est GFR (CKD-EPI)AfAm (>60 ml/min/1.73 sqM) Est GFR (CKD-EPI)NonAf (>60 ml/min/1.73 sqM) Glucose (74-99) mg/dL Calcium (8.4-10.2) mg/dL Magnesium (1.6-2.3) mg/dL Total Bilirubin (0.2-1.3) mg/dL AST (14-36) U/L ALT (4-34) U/L Alkaline Phosphatase (38-126) U/L Troponin I (0.000-0.034) ng/mL NT-Pro-B Natriuret Pep pg/mL Total Protein (6.3-8.2) g/dL Albumin (3.5-5.0) g/dL TSH (0.465-4.680) mIU/L Urine Color Urine Appearance (Clear) Urine pH (5.0-8.0) Ur Specific [place] (1.001-1.035) Urine Protein (Negative) Urine Glucose (UA) (Negative) Urine Ketones (Negative) Urine Blood (Negative) Urine Nitrite (Negative) Urine Bilirubin (Negative) Urine Urobilinogen (<2.0) mg/dL Ur Leukocyte Esterase (Negative) Urine RBC (0-5) /hpf Urine WBC (0-5) /hpf Ur Squamous Epith Cells (0-4) /hpf Urine Bacteria (None) /hpf Hyaline Casts (0-2) /lpf Urine Mucus (None) /hpf Urine HCG, Qual Not Detected (Not Detectd) Urine Opiates Screen (NotDetected) Ur Oxycodone Screen (NotDetected) Urine Methadone Screen (NotDetected) Ur Propoxyphene Screen (NotDetected) Ur Barbiturates Screen (NotDetected) U Tricyclic Antidepress (NotDetected) Ur Phencyclidine Scrn (NotDetected) Ur Amphetamines Screen (NotDetected) U Methamphetamines Scrn (NotDetected) U Benzodiazepines Scrn (NotDetected) Urine Cocaine Screen (NotDetected) U Marijuana (THC) Screen (NotDetected) Disposition Clinical Impression: Diabetes, Dyspnea, Swelling of both lower extremities Disposition: ADMITTED IP TO THIS HOSP Condition: Stable Is patient prescribed a controlled substance at d/c from ED?: No Referrals: Mohit Curran MD [Primary Care Provider] - 1-2 days Decision to Admit Reason: Admit from EC Decision Date: 07/31/20 Decision Time: 19:55
[2020-08-07 19:06] LABS: Appearance,Urine Clear (Clear); Bacteria,Urine Rare /hpf; Basophils % (A) 1 %; Bilirubin,Urine Negative (Negative); Blood,Urine Moderate (Negative); Color,Urine Light Yellow; Eosinophils % (A) 1 %; Glucose,Urine (UA) 4+ (Negative); HGB 13.9 gm/dL (11.4-16.0); Hyaline Casts,Urine 1 /lpf (0-2); Ketones,Urine Negative (Negative); Leukocyte Esterase,Urine Moderate (Negative); Lymphocytes # (A) 2.5 k/uL (1.0-4.8); Lymphocytes % (A) 38 %; MCH 29.8 pg (25.0-35.0); MCHC 34.7 g/dL (31.0-37.0); MCV 85.9 fL (80.0-100.0); Mean Platelet Volume 7.5; Monocytes # (A) 0.3 k/uL (0-1.0); Monocytes % (A) 4 %; Mucus,Urine Rare /hpf; Neutrophils # (A) 3.6 k/uL (1.3-7.7); Neutrophils % (A) 55 %; Nitrite,Urine Negative (Negative); PH, Urine 5.5 (5.0-8.0); Platelet Count 242 k/uL (150-450); Protein,Urine 2+ (Negative); RBC 4.66 m/uL (3.80-5.40); RBC,Urine 10 /hpf (0-5); Specific Gravity,Urine 1.036 (1.001-1.035); Squamous Epithelial Cell,Urine <1 /hpf (0-4); Urobilinogen,Urine <2.0 mg/dL (<2.0); WBC 6.5 k/uL (3.8-10.6); WBC,Urine 3 /hpf (0-5)
[2020-08-07 19:18] LABS: Amphetamine Screen,Urine Not Detected (NotDetected); Barbiturate Screen,Urine Not Detected (NotDetected); Benzodiazepines Screen,Urine Not Detected (NotDetected); Cocaine Screen,Urine Not Detected (NotDetected); Methadone Screen, Urine Not Detected (NotDetected); Opiate Screen,Urine Not Detected (NotDetected); Oxycodone Screen, Urine Not Detected (NotDetected); Phencyclidine Screen,Urine Not Detected (NotDetected); Tricyclic Antidepressant,Urine Not Detected (NotDetected); Urn Cannabinoid Scrn Not Detected (NotDetected)
[2020-08-07 19:21] LABS: ALT 15 U/L (4-34); AST 18 U/L (14-36); African American GFR (CKD) >90 (>60 ml/min/1.73 sqM); Albumin 3.4 g/dL (3.5-5.0); Alkaline Phosphatase 82 U/L (38-126); Anion Gap 6 mmol/L; Blood Urea Nitrogen 19 mg/dL (7-17); Calcium 9.7 mg/dL (8.4-10.2); Carbon Dioxide 24 mmol/L (22-30); Chloride 102 mmol/L (98-107); Glucose 411 mg/dL (74-99); Magnesium 1.7 mg/dL (1.6-2.3); Non-African American GFR(CKD) >90 (>60 ml/min/1.73 sqM); Potassium 4.6 mmol/L (3.5-5.1); Sodium 132 mmol/L (137-145); Total Bilirubin 0.3 mg/dL (0.2-1.3); Total Protein 6.3 g/dL (6.3-8.2)
[2020-08-07 19:28] LABS: D-Dimer 0.41 mg/L FEU (<0.60); INR 0.9 (<1.2); Partial Thromboplastin Time 21.6 sec (22.0-30.0); Prothrombin Time 9.4 sec (9.0-12.0)
--- NOTE | 2020-08-07 19:31 | XR ---
EXAMINATION TYPE: XR chest 2V DATE OF EXAM: 08/07/2020 COMPARISON: Chest x-ray June 27, 2020 HISTORY: Dysrhythmia. TECHNIQUE: Frontal and lateral views of the chest are obtained. FINDINGS: Low lung volumes redemonstrated. There is no suspicious focal air space opacity, pleural e ffusion, or pneumothorax seen. The cardiac silhouette size is stable and within normal limits. Scoli otic curvature redemonstrated. Overlying EKG leads. IMPRESSION: No acute cardiopulmonary process. No significant change from prior.
[2020-08-07] MEDS ORDERED: ACETAMINOPHEN TAB 325 MG TAB PO PRN (19:52)
[2020-08-07] MEDS ORDERED: NALOXONE 0.4 MG/ML 1 ML VIAL IV PRN (19:52)
[2020-08-07] MEDS ORDERED: ACETAMINOPHEN TAB 500 MG TAB PO PRN (20:17)
[2020-08-07] MEDS ORDERED: IBUPROFEN 800 MG TAB PO PRN (20:17)
[2020-08-07] MEDS ORDERED: Magnesium Replacement Protocol 1 EACH MISC MISCELLANE PRN (20:25)
[2020-08-07] MEDS: Insulin Aspart (For Pump) 100 UNIT/ML VIAL SQ-PUMP SCH (21:28)
[2020-08-07] MEDS: lisinopriL 10 MG TAB PO SCH (21:33)
[2020-08-07] MEDS: MAGNESIUM SULFATE-D5W PMX 1 GM in DEXTROSE/WATER 1 100ML.BAG IVPB SCH ×2 (21:35→22:43)
[2020-08-07] MEDS: SODIUM CHLORIDE 0.9% 1,000 ML IV SCH (21:37)
[2020-08-08] MEDS: LORazepam 0.5 MG TAB PO PRN ×2 (03:41→23:36)
--- NOTE | 2020-08-08 07:52 | CT ---
EXAMINATION TYPE: CT angio chest DATE OF EXAM: 08/08/2020 7:39 AM COMPARISON: Plain radiographs 08/07/2020 HISTORY: Dyspnea CT DLP: 267.3 mGycm Automated exposure control for dose reduction was used. CONTRAST: CTA scan of the thorax is performed with IV Contrast, patient injected with 68 mL of Isovue 370, pulm onary embolism protocol. . FINDINGS: LUNGS: The lungs are grossly clear, there is no concerning parenchymal mass or nodule identified. T here is no pleural effusion or pneumothorax seen. The tracheobronchial tree is patent. MEDIASTINUM: There is satisfactory enhancement of the pulmonary artery and its branches, there is no CT evidence for pulmonary embolism. There are no greater than 1 cm hilar or mediastinal lymph nodes. No pericardial effusion is seen. Bones: Degenerative changes are noted in the thoracic spine, more than expected for the patient's young age. OTHER: Hiatal hernia is present. No definite filling defects within the main, lobar, segmental or subsegmental branches of the pulmona ry arterial system with findings confirmed on 3-D imaging. IMPRESSION: NO DEFINITE PULMONARY EMBOLISM OR OTHER ACUTE PATHOLOGY IN THE CHEST.
[2020-08-08 07:55] LABS: Glucose,Whole Blood 334 mg/dL (75-99)
[2020-08-08] MEDS: lisinopriL 10 MG TAB PO SCH ×2 (08:12→08:20)
[2020-08-08] MEDS: SODIUM CHLORIDE 0.9% 1,000 ML IV SCH ×2 (08:13→17:01)
[2020-08-08] MEDS: Insulin Aspart (For Pump) 100 UNIT/ML VIAL SQ-PUMP SCH (08:14)
[2020-08-08] MEDS ORDERED: DOBUTamine DRIP for NUC MED 500 MG in DEXTROSE/WATER 1 250ML.BAG IV PRN (08:38)
[2020-08-08] MEDS ORDERED: NON FORMULARY DRUG (Vitamin C/Biotin [Hair, Skin And Nails] 1 EACH Tab.Chew) PO SCH (09:00)
--- NOTE | 2020-08-08 09:46 | P.CRDCN ---
History of Present Illness Consult date: 08/08/20 History of present illness: HISTORY OF PRESENT ILLNESS: This is a 29-year-old female with a past medical history significant for type 1 diabetes, anxiety, and depression. 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 We have been asked to see the patient in consultation for shortness of breath. Patient examined at the bedside. Patient presented to the hospital due to a chief complaint of shortness of breath and lower extremity swelling. Patient states she has been having swelling of her lower extremities and shortness of breath since May. Patient reports on Thursday she was at work and began having shortness of breath while at rest which was unusual for her. She states she had to keep taking her mask off to catch her breath. Patient reports she was seen in the emergency room about a month ago for her shortness of breath and lower extremity swelling and was placed on diuretics. She states she was given a 5 day supply of this and then she followed up with her primary care physician, Dr. Curran, who prescribed her another 5 days of diuretics. She states she did not see an improvement in her shortness of breath or her lower extremity edema so she was taken off of her diuretics. Patient denies having any chest pain or pressure. She does report some mild chest tightness when she is expressing shortness of breath. Patient is a nonsmoker. She reports occasional alcohol use. She gives additional history that her grandpa in his 60s from a heart attack. EKG reveals sinus tachycardia with no signs of acute ischemia Chest xray no acute cardiopulmonary process. Chest CT: Negative for pulmonary embolism Laboratory data: WBC 6.5. Hemoglobin 13.9. Platelet count 242. D-dimer 0.41. Sodium 132. Potassium 4.6. BUN 19. Creatinine 0.45. Troponin negative 3. TSH 3.680. BNP 90. Current home cardiac medications include none REVIEW OF SYSTEMS: At the time of my exam: CONSTITUTIONAL: Denies fever or chills. HEENT: Denies blurred vision, vision changes, or eye pain. Denies hemoptysis CARDIOVASCULAR: Denies chest pain. Denies orthopnea. Denies PND. Denies palpitations RESPIRATORY: + shortness of breath. GASTROINTESTINAL: Denies abdominal pain. Denies nausea or vomiting. HEMATOLOGIC: Denies bleeding disorders. GENITOURINARY: Denies any blood in urine. SKIN: Denies pruitis. Denies rash. PHYSICAL EXAM: VITAL SIGNS: Reviewed. GENERAL: Well-developed in no acute distress. HEENT: Head is normocephalic. Pupils are equal, round. Sclerae anicteric. Mucous membranes of the mouth are moist. Neck supple. No JVD or thyromegaly LUNGS: Respirations even and unlabored. Lungs essentially clear to auscultation bilaterally. HEART: Regular rate and rhythm. S1 and S2 heard. ABDOMEN: Soft. Nondistended. Nontender. EXTREMITIES: Normal range of motion. No clubbing or cyanosis. Peripheral pulses intact. Trace bilateral ankle edema present. NEUROLOGIC: Awake and alert. Oriented x 3. ASSESSMENT: Shortness of breath and lower extremity edema, since May 2020 Type 1 Diabetes Anxiety Depression Sinus tachycardia PLAN: An acute coronary event has been ruled out Obtain 2D echo to assess cardiac structure and function Patient to undergo Dobutamine stress echo today to assess for reversible ischemia Further recommendations pending patient course Nurse practitioner note has been reviewed by physician. Signing provider agrees with the documented findings, assessment, and plan of care. Past Medical History Past Medical History: Asthma, Diabetes Mellitus, GERD/Reflux, Skin Disorder Additional Past Medical History / Comment(s): hx. hiatal hernia, wounds in groin area, buttocks-thought was ingrown hairs History of Any Multi-Drug Resistant Organisms: MRSA Date of last positivie culture/infection: 2009 MDRO Source:: unknown Past Surgical History: Section Additional Past Surgical History / Comment(s): cervical abblation Past Anesthesia/Blood Transfusion Reactions: No Reported Reaction, Motion Sickness Past Psychological History: Anxiety, Depression Smoking Status: Never smoker Past Alcohol Use History: Occasional Past Drug Use History: None Reported - Past Family History Mother Family Medical History: Thyroid Disorder Additional Family Medical History / Comment(s): gestational diabetes Father Additional Family Medical History / Comment(s): crohnes disease Medications and Allergies Home Medications Medication Instructions Recorded Confirmed Type Insulin Aspart (For Pump) [NovoLOG 0.01 unit SQ-PUMP CONTINUOUS 11/08/17 08/07/20 History (For Pump)] Acetaminophen Tab [Tylenol Tab] 1,000 mg PO Q6HR PRN 06/27/20 08/07/20 History Ibuprofen [Advil] 800 mg PO Q8HR PRN 06/27/20 08/07/20 History LORazepam [Ativan] 0.5 mg PO DAILY PRN 08/07/20 08/07/20 History Vitamin C/Biotin [Hair, Skin and 1 tab PO DAILY 08/07/20 08/07/20 History Nails] Allergies Allergy/AdvReac Type Severity Reaction Status Date / Time cephalexin [From Keflex] Allergy Unknown Verified 08/07/20 18:19 Physical Exam Vitals: Vital Signs Temp Pulse Pulse Resp BP BP Pulse Ox 08/08/20 07:15 97.6 F 105 H 16 124/80 98 08/08/20 07:00 97.7 F 99 16 127/88 98 08/08/20 03:46 105 H 16 124/80 98 08/07/20 22:44 94 18 124/74 98 08/07/20 18:29 101 H 08/07/20 17:30 97.6 F 107 H 18 133/91 98 Intake and Output 08/07/20 08/08/20 08/08/20 22:59 06:59 14:59 Output Total 800 Balance -800 Output: Urine 800 Other: Weight 81.647 kg Results 08/07/20 18:48 08/07/20 18:48 Cardiac Enzymes 08/07/20 08/07/20 08/07/20 Range/Units 18:48 18:48 21:56 AST 18 (14-36) U/L Troponin I <0.012 <0.012 (0.000-0.034) ng/mL 08/08/20 Range/Units 01:08 AST (14-36) U/L Troponin I <0.012 (0.000-0.034) ng/mL Coagulation 08/07/20 Range/Units 18:48 PT 9.4 (9.0-12.0) sec APTT 21.6 L (22.0-30.0) sec CBC 08/07/20 Range/Units 18:48 WBC 6.5 (3.8-10.6) k/uL RBC 4.66 (3.80-5.40) m/uL Hgb 13.9 (11.4-16.0) gm/dL Hct 40.0 (34.0-46.0) % Plt Count 242 (150-450) k/uL Comprehensive Metabolic Panel 08/07/20 Range/Units 18:48 Sodium 132 L (137-145) mmol/L Potassium 4.6 (3.5-5.1) mmol/L Chloride 102 (98-107) mmol/L Carbon Dioxide 24 (22-30) mmol/L BUN 19 H (7-17) mg/dL Creatinine 0.45 L (0.52-1.04) mg/dL Glucose 411 H (74-99) mg/dL Calcium 9.7 (8.4-10.2) mg/dL AST 18 (14-36) U/L ALT 15 (4-34) U/L Alkaline Phosphatase 82 (38-126) U/L Total Protein 6.3 (6.3-8.2) g/dL Albumin 3.4 L (3.5-5.0) g/dL Current Medications Generic Name Dose Route Start Last Admin Trade Name Freq PRN Reason Stop Dose Admin Acetaminophen 1,000 mg 08/07/20 20:17 Acetaminophen Tab 500 Mg Tab PO Q6HR PRN Pain Sodium Chloride 1,000 mls @ 100 mls/hr 08/07/20 20:30 08/08/20 08:13 Saline 0.9% IV 100 mls/hr .Q10H ANDRE Administration Dobutamine HCl/Dextrose 500 mg 250 mls @ 24.494 mls/hr 08/08/20 08:38 / IV Solution IV 08/08/20 12:38 .[id number] PRN Per Protocol Protocol 10 MCG/KG/MIN Ibuprofen 800 mg 08/07/20 20:17 Ibuprofen 800 Mg Tab PO Q8HR PRN Pain Insulin Aspart 0.01 unit 08/07/20 20:30 08/08/20 08:14 Insulin Aspart (For Pump) 100 Unit/Ml Vial SQ-PUMP 0.01 unit CONTINUOUS ANDRE Administration Lisinopril 10 mg 08/07/20 20:30 08/08/20 08:20 Lisinopril 10 Mg Tab PO Not Given DAILY ANDRE Lorazepam 0.5 mg 08/07/20 20:17 08/08/20 03:41 Lorazepam 0.5 Mg Tab PO 0.5 mg DAILY PRN Administration Anxiety Miscellaneous Information 1 each 08/07/20 20:25 Magnesium Replacement Protocol 1 Each Misc MISCELLANE DAILY PRN Per Protocol Protocol Naloxone HCl 0.2 mg 08/07/20 19:52 Naloxone 0.4 Mg/Ml 1 Ml Vial IV Q2M PRN Opioid Reversal Intake and Output 08/07/20 08/08/20 08/08/20 22:59 06:59 14:59 Output Total 800 Balance -800 Output: Urine 800 Other: Weight 81.647 kg 08/07/20 18:48 08/07/20 18:48
[2020-08-08] MEDS ORDERED: INSULIN PUMP ACTIVE INSULIN 1 EACH MISC MISCELLANE PRN (10:24)
[2020-08-08] MEDS ORDERED: INSPUCOR MISCELLANE PRN (10:24)
[2020-08-08] MEDS ORDERED: INSULIN PUMP TARGET GLUCOSE 1 EACH MISC MISCELLANE PRN (10:24)
[2020-08-08] MEDS ORDERED: INSULIN ASPART (NovoLOG) 100 UNIT/ML VIAL SQ PRN (10:24)
[2020-08-08] MEDS ORDERED: INSULIN PUMP BASAL RATES 1 EACH MISC MISCELLANE PRN (10:24)
[2020-08-08 10:27] LABS: Basophils # (A) 0.02 X 10*3/uL (0.00-0.10); Basophils % (A) 0.3 %; Eosinophils # (A) 0.05 X 10*3/uL (0.04-0.35); Eosinophils % (A) 0.9 %; HGB 11.8 g/dL (12.0-15.0); Lymphocytes % (A) 47.9 %; MCH 29.5 pg (27.0-32.0); MCHC 33.7 g/dL (32.0-37.0); MCV 87.5 fL (80.0-97.0); Mean Platelet Volume 10.2 fL (9.5-12.2); Monocytes # (A) 0.42 X 10*3/uL (0.20-1.00); Monocytes % (A) 7.2 %; Neutrophils # (A) 2.52 X 10*3/uL (1.80-7.70); Neutrophils % (A) 43.2 %; Platelet Count 205 X 10*3/uL (140-440); RDW 12.8 % (11.5-14.5); WBC 5.84 X 10*3/uL (4.50-10.00)
[2020-08-08 12:33] LABS: Glucose,Whole Blood 356 mg/dL (75-99)
[2020-08-08 12:39] LABS: African American GFR (CKD) 140.8 (60.0-200.0); Albumin 2.9 g/dL (3.80-4.90); Albumin/Globulin Ratio 1.26 (1.60-3.17); Anion Gap 5.3 mmol/L (4.00-12.00); Calcium 8.2 mg/dL (8.7-10.3); Carbon Dioxide 25.7 mmol/L (21.6-31.8); Globulin 2.3 g/dL (1.6-3.3); Magnesium 1.7 mg/dL (1.5-2.4); Non-African American GFR(CKD) 121.5 (60.0-200.0); Potassium 4.2 mmol/L (3.5-5.5); Total Bilirubin 0.4 mg/dL (0.2-1.2); Total Protein 5.2 g/dL (6.2-8.2)
[2020-08-08] MEDS: INSULIN PUMP MEAL BOLUS 1 UNIT MISC MISCELLANE SCH ×3 (12:39→21:56)
--- NOTE | 2020-08-08 13:22 | ECHOF ---
Referral Reason:Dyspnea MEASUREMENTS -------- HEIGHT: 172.7 cm WEIGHT: 81.6 kg BP: RVIDd: 2.7 cm (< 3.3) IVSd: 1.1 cm (0.6 - 1.1) LVIDd: 3.5 cm (3.9 - 5.3) LVPWd: 1.4 cm (0.6 - 1.1) IVSs: 1.3 cm LVIDs: 2.9 cm LVPWs: 1.3 cm LA Diam: 3.1 cm (2.7 - 3.8) Ao Diam: 3.0 cm (2.0 - 3.7) AV Cusp: 1.7 cm (1.5 - 2.6) LA Diam: 3.2 cm (2.7 - 3.8) MV EXCURSION: 17.202 mm (> 18.000) MV EF SLOPE: 81 mm/s (70 - 150) EPSS: 0.3 cm MV E Robert: 0.54 m/s MV DecT: 214 ms MV A Robert: 0.71 m/s MV E/A Ratio: 0.76 RAP: 5.00 mmHg RVSP: 14.95 mmHg FINDINGS -------- Sinus rhythm. This was a technically good study. LV size, wall thickness and systolic function are normal, with an EF greater than 55%. The left linda tricular size is normal. The diastolic filling pattern is normal for the age of the patient 6.82. The right ventricle is normal in size. The left atrial size is normal. The right atrial size is normal. Prominent Chiari network seen in right atrium (normal finding). The aortic valve is trileaflet, and appears structurally normal. No aortic stenosis or regurgitation. The mitral valve is normal. Mild mitral regurgitation is present. The tricuspid valve appears structurally normal. Mild tricuspid regurgitation present. Right vent ricular systolic pressure is normal at < 35 mmHg. There is no pulmonic regurgitation present. The aortic root size is normal. There is no pericardial effusion. CONCLUSIONS -------- 1. LV size, wall thickness and systolic function are normal, with an EF greater than 55%. 2. The left ventricular size is normal. 3. The left atrial size is normal. 4. The aortic valve is trileaflet, and appears structurally normal. No aortic stenosis or regurgitati on. 5. Mild mitral regurgitation is present. 6. Mild tricuspid regurgitation present. 7. There is no pericardial effusion. TAMPER OPERATOR: Avis Cramer RDCS
--- NOTE | 2020-08-08 14:06 | ECHOS ---
STRESS ECHOCARDIOGRAM DATE OF SERVICE: LUMASON: @@ Vial INDICATIONS: @@ MEDICATIONS: @@ BASELINE HEART RATE: @@ BASELINE BLOOD PRESSURE: @@ MAXIMUM HEART RATE: @@ MAXIMUM BLOOD PRESSURE: @@ 85% MPHR: @@ 100% MPHR: @@ METS: @@ MAXIMUM STAGE REACHED: @@ TOTAL EXERCISE TIME: @@ RESULTS: Baseline rhythm is a sinus mechanism, rate of 100, normal axis, intervals, normal echocardiogram. Baseline blood pressure 152/94 mmHg. Patient received an infusion of dobutamine per protocol reaching a peak rate of 166 beats per minute which is equal to 88% maximum predicted heart rate. Peak blood pressure 191/109 mmHg. Electrocardiograph monitoring revealed no evidence of diagnostic ischemic ST deviation. Baseline echocardiogram revealed normal wall motion. At peak infusion, there was normal wall thickening and motion without any hypokinesis or dyskinesis. CONCLUSION: 1. Normal electrocardiograph response to exercise to dobutamine infusion. 2. Normal stress echocardiogram with no evidence of stress-induced ischemia. MMODL / IJN: [id number] /
[2020-08-08 14:39] LABS: Glucose,Whole Blood 251 mg/dL (75-99)
[2020-08-08] MEDS ORDERED: HYDROcodone/APAP 7.5-325MG 1 EACH TAB PO ONE (15:33)
[2020-08-08] MEDS ORDERED: FUROSEMIDE 10 MG/ML 2 ML VIAL IV ONE (15:35)
[2020-08-08] MEDS: GABAPENTIN 100 MG CAP PO SCH ×2 (17:00→21:52)
[2020-08-08 17:10] LABS: Glucose,Whole Blood 193 mg/dL (75-99)
[2020-08-08 20:19] LABS: Hemoglobin A1C 12.3 % (4.0-6.0)
[2020-08-08] MEDS: HYDROcodone/APAP 5-325MG 1 EACH TAB PO PRN (21:51)
[2020-08-08 22:09] LABS: Glucose,Whole Blood 362 mg/dL (75-99)
--- NOTE | 2020-08-08 22:13 | P.HPIM ---
History of Present Illness H&P Date: 08/08/20 Chief Complaint: Shortness of breath 29-year-old female was admitted to the hospital with bilateral lower extremity swelling for approximately 2 month duration. Seen in the primary care office yesterday complaint of dyspnea on exertion and dyspnea at rest. 12 lead E KG showed sinus tachycardia. She has significant history of type I diabetes, mixed anxiety and depression, Asthma, Gerd/reflux. Patient was evaluated in emergency department showed hyperglycemia negative D dimer, no changes in 12 lead EKG. Consult the cardiology for intermittent chest pain with dyspnea at rest and exertion. Patients diagnostic testing is unremarkable. Review of Systems Constitutional: Reports fatigue, Reports weakness, Reports weight gain Ears, nose, mouth and throat: Reports as per HPI Cardiovascular: Reports decreased exercise tolerance, Reports dyspnea on exertion, Reports leg edema, Reports shortness of breath Respiratory: Reports dyspnea Musculoskeletal: Reports muscle cramps, Reports muscle weakness Neurological: Reports weakness Endocrine: Reports fatigue Past Medical History Past Medical History: Asthma, Diabetes Mellitus, GERD/Reflux, Skin Disorder Additional Past Medical History / Comment(s): hx. hiatal hernia, wounds in groin area, buttocks-thought was ingrown hairs History of Any Multi-Drug Resistant Organisms: MRSA Date of last positivie culture/infection: 2009 MDRO Source:: unknown Past Surgical History: Section Additional Past Surgical History / Comment(s): cervical abblation Past Anesthesia/Blood Transfusion Reactions: No Reported Reaction, Motion Sickness Past Psychological History: Anxiety, Depression Additional Psychological History / Comment(s): past hx Smoking Status: Never smoker Past Alcohol Use History: Occasional Past Drug Use History: None Reported - Past Family History Mother Family Medical History: Thyroid Disorder Additional Family Medical History / Comment(s): gestational diabetes Father Additional Family Medical History / Comment(s): crohnes disease Medications and Allergies Home Medications and Allergies Comment(s): Medication and allergies reviewed Home Medications Medication Instructions Recorded Confirmed Type Insulin Aspart (For Pump) [NovoLOG 0.01 unit SQ-PUMP CONTINUOUS 11/08/17 08/07/20 History (For Pump)] Acetaminophen Tab [Tylenol Tab] 1,000 mg PO Q6HR PRN 06/27/20 08/07/20 History Ibuprofen [Advil] 800 mg PO Q8HR PRN 06/27/20 08/07/20 History LORazepam [Ativan] 0.5 mg PO DAILY PRN 08/07/20 08/07/20 History Vitamin C/Biotin [Hair, Skin and 1 tab PO DAILY 08/07/20 08/07/20 History Nails] Allergies Allergy/AdvReac Type Severity Reaction Status Date / Time cephalexin [From Keflex] Allergy Unknown Verified 08/07/20 18:19 Physical Exam Vitals: Vital Signs Temp Pulse Pulse Resp BP BP Pulse Ox 08/08/20 20:00 15 08/08/20 14:27 98.2 F 107 H 15 94/69 99 08/08/20 07:15 97.6 F 105 H 16 124/80 98 08/08/20 07:00 97.7 F 99 16 127/88 98 08/08/20 03:46 105 H 16 124/80 98 08/07/20 22:44 94 18 124/74 98 Intake and Output 08/08/20 08/08/20 08/08/20 06:59 14:59 22:59 Output Total 800 Balance -800 Output: Urine 800 Other: Voiding Method Toilet # Voids 2 2 Weight 81.65 kg - Constitutional General appearance: cooperative - EENT Eyes: EOMI, PERRLA, normal appearance Ears: bilateral: normal - Neck Neck: normal ROM Carotids: bilateral: upstroke normal Thyroid: bilateral: normal size - Respiratory Respiratory: bilateral: CTA - Cardiovascular Sinus tachycardia Heart rate: 108 Rhythm: regular Heart sounds: normal: S1, S2 leg Peripheral Edema: bilateral: 1+ radial pulse Peripheral Pulses: bilateral: Normal dorsalis pedis Peripheral Pulses: bilateral: Normal - Gastrointestinal General gastrointestinal: normal bowel sounds - Integumentary Integumentary: normal turgor - Neurologic Neurologic: CNII-XII intact - Musculoskeletal Musculoskeletal: generalized weakness - Psychiatric Psychiatric: A&O x's 3, appropriate affect, intact judgment & insight Results CBC & Chem 7: 08/08/20 04:10 08/08/20 04:10 Labs: Abnormal Lab Results - Last 24 Hours (Table) 08/08/20 08/08/20 08/08/20 Range/Units 04:10 04:10 04:10 RBC 4.00 L (4.10-5.20) X 10*6/uL Hgb 11.8 L (12.0-15.0) g/dL Hct 35.0 L (37.2-46.3) % Sodium 134 L (135-145) mmol/L BUN/Creatinine Ratio 25.00 H (12.00-20.00) Ratio Glucose 326 H (70-110) mg/dL POC Glucose (mg/dL) (75-99) mg/dL Hemoglobin A1c 12.3 H (4.0-6.0) % Calcium 8.2 L (8.7-10.3) mg/dL Total Protein 5.2 L (6.2-8.2) g/dL Albumin 2.90 L (3.80-4.90) g/dL Albumin/Globulin Ratio 1.26 L (1.60-3.17) g/dL 08/08/20 08/08/20 08/08/20 Range/Units 07:52 12:32 14:37 RBC (4.10-5.20) X 10*6/uL Hgb (12.0-15.0) g/dL Hct (37.2-46.3) % Sodium (135-145) mmol/L BUN/Creatinine Ratio (12.00-20.00) Ratio Glucose (70-110) mg/dL POC Glucose (mg/dL) 334 H 356 H 251 H (75-99) mg/dL Hemoglobin A1c (4.0-6.0) % Calcium (8.7-10.3) mg/dL Total Protein (6.2-8.2) g/dL Albumin (3.80-4.90) g/dL Albumin/Globulin Ratio (1.60-3.17) g/dL 08/08/20 Range/Units 17:08 RBC (4.10-5.20) X 10*6/uL Hgb (12.0-15.0) g/dL Hct (37.2-46.3) % Sodium (135-145) mmol/L BUN/Creatinine Ratio (12.00-20.00) Ratio Glucose (70-110) mg/dL POC Glucose (mg/dL) 193 H (75-99) mg/dL Hemoglobin A1c (4.0-6.0) % Calcium (8.7-10.3) mg/dL Total Protein (6.2-8.2) g/dL Albumin (3.80-4.90) g/dL Albumin/Globulin Ratio (1.60-3.17) g/dL Microbiology - Last 24 Hours (Table) 08/08/20 08:20 Urine Culture - Preliminary Urine,Voided Chest x-ray: report reviewed (Stress echo reviewed) CT scan - chest: report reviewed Thrombosis Risk Factor Assmnt - Choose All That Apply Each Factor Represents 1 point: Obesity (BMI >25) Thrombosis Risk Factor Assessment Total Risk Factor Score: 1 Thrombosis Risk Factor Assessment Level: Low Risk Assessment and Plan Assessment: Chest discomfort shortness of breath dyspnea at rest on exertion tachycardia Diabetes mellitus type I mixed anxiety and depression asthma Gerd/reflux bilateral lower extremity edema Full code Plan: Chest discomfort, dyspnea at rest and exertion, CTA of the chest, Consult cardiology for recommendations and treatment plan bilateral lower extremity edema, Elevate legs above heart, Consultation with cardiology for recommendations and treatment plan diabetes mellitus type I continue insulin pump with diabetic educated stress echo pending monitor vital signs and diagnostic testing further recommendations to come based on patient's clinical condition full code hopeful discharge within 24 to 48 hours Time with Patient: Greater than 30
[2020-08-08 23:20] LABS: Chol/HDL Ratio 4.74; LDL Cholesterol,Calculated 147.2 mg/dL (0.0-131.0); VLDL Calculation 39.8 mg/dL (5.00-40.00)
[2020-08-09] MEDS: SODIUM CHLORIDE 0.9% 1,000 ML IV SCH ×2 (03:53→16:25)
[2020-08-09 05:38] LABS: Basophils % (A) 1 %; Eosinophils % (A) 1 %; HCT 32.7 % (34.0-46.0); HGB 11.6 gm/dL (11.4-16.0); Lymphocytes # (A) 2.5 k/uL (1.0-4.8); Lymphocytes % (A) 48 %; MCHC 35.4 g/dL (31.0-37.0); MCV 87.5 fL (80.0-100.0); Mean Platelet Volume 7.3; Monocytes # (A) 0.2 k/uL (0-1.0); Monocytes % (A) 4 %; Neutrophils # (A) 2.4 k/uL (1.3-7.7); Neutrophils % (A) 45 %; Platelet Count 209 k/uL (150-450); RBC 3.74 m/uL (3.80-5.40); RDW 13.1 % (11.5-15.5); WBC 5.3 k/uL (3.8-10.6)
[2020-08-09 05:47] LABS: ALT 10 U/L (4-34); AST 14 U/L (14-36); African American GFR (CKD) >90 (>60 ml/min/1.73 sqM); Albumin 2.4 g/dL (3.5-5.0); Alkaline Phosphatase 65 U/L (38-126); Anion Gap 3 mmol/L; Blood Urea Nitrogen 23 mg/dL (7-17); Calcium 8.6 mg/dL (8.4-10.2); Carbon Dioxide 24 mmol/L (22-30); Chloride 106 mmol/L (98-107); Globulin 2.5 g/dL; Glucose 243 mg/dL (74-99); Magnesium 1.7 mg/dL (1.6-2.3); Non-African American GFR(CKD) >90 (>60 ml/min/1.73 sqM); Potassium 4.4 mmol/L (3.5-5.1); Sodium 133 mmol/L (137-145); Total Bilirubin <0.1 mg/dL (0.2-1.3); Total Protein 4.9 g/dL (6.3-8.2)
[2020-08-09 07:15] LABS: Glucose,Whole Blood 269 mg/dL (75-99)
[2020-08-09 08:14] VITALS: RESP 16
[2020-08-09] MEDS: INSULIN PUMP MEAL BOLUS 1 UNIT MISC MISCELLANE SCH ×2 (08:15→12:47)
[2020-08-09] MEDS: GABAPENTIN 100 MG CAP PO SCH ×2 (08:16→16:16)
[2020-08-09] MEDS: lisinopriL 10 MG TAB PO SCH (08:16)
[2020-08-09] MEDS: HYDROcodone/APAP 5-325MG 1 EACH TAB PO PRN ×2 (08:24→12:50)
[2020-08-09] MEDS ORDERED: hydroCHLOROthiazide 12.5 MG CAP PO SCH (09:00)
[2020-08-09] MEDS: LORazepam 0.5 MG TAB PO PRN (11:34)
[2020-08-09 12:41] LABS: Glucose,Whole Blood 214 mg/dL (75-99)
[2020-08-09 14:28] VITALS: BMI 27.3
[2020-08-09 15:34] VITALS: BP 86/60; PULSE 94; TEMP 97.4
--- NOTE | 2020-08-09 16:34 | US ---
EXAMINATION TYPE: US venous doppler duplex LE DATE OF EXAM: 08/09/2020 4:18 PM COMPARISON: NONE CLINICAL HISTORY: Bilateral leg swelling . SIDE PERFORMED: Bilateral TECHNIQUE: The lower extremity deep venous system is examined utilizing real time linear array sonog cb with graded compression, doppler sonography and color-flow sonography. VESSELS IMAGED: Common Femoral Vein Deep Femoral Vein Greater Saphenous Vein * Femoral Vein Popliteal Vein Small Saphenous Vein * Proximal Calf Veins (* superficial vessels) The right and left common femoral, superficial femoral and popliteal veins show color flow, normal co mpressibility and no abnormal luminal echoes. Within the left popliteal fossa hypoechoic area is pres ent, findings could possibly represent a semimembranosus gastrocnemius cyst but are indeterminate, si milar findings seen on prior exam Right Leg: Negative for DVT Left Leg: Negative for DVT IMPRESSION: No evident deep venous thrombosis at or above the knees.
--- NOTE | 2020-08-09 19:01 | P.DS ---
Providers Date of admission: 08/07/20 19:52 Expected date of discharge: 08/09/20 Attending physician: Mohit Curran Consults: 08/08/20 17:07 Consult Physician Routine Consulting Provider: Librado Ortiz Consult Reason/Comments: bilateral lwer extremity edema Do you want consulting provider notified?: Yes Primary care physician: Mohit Curran Hospital Course: 29-year-old female was admitted to the hospital with bilateral lower extremity swelling for approximately 2 month duration. Seen in the primary care office with the complaint of dyspnea on exertion and dyspnea at rest. 12 lead EKG showed sinus tachycardia. She has significant history of type I diabetes, mixed anxiety and depression, Asthma, Gerd/reflux. Patient was evaluated in emergency department showed hyperglycemia negative D dimer, no changes in 12 lead EKG. Consult the cardiology for intermittent chest pain with dyspnea at rest and exertion. Patients diagnostic testing is unremarkable.Cardiology was consulted echocardiogram was obtained ejection fraction 55 to 60%, normal is echocardiogram. Patient was also evaluated by vascular surgeon due to increased swelling and bilateral lower extremities negative for DVTs for ultrasound, she was recommended to use Milton hose and mild diuretic for swelling. Patient is in no acute signs of distress upon discharge Assessment: Chest discomfort, Negative troponins times 3, 12 lead EKG no acute changes, echocardiogram negative shortness of breath,'s serial chest x-rays negative for acute pulmonary processes, CT of the chest negative for pulmonary embolism dyspnea at rest on exertion, Resolved throughout hospital stay tachycardia, Resolved during hospital stay with IV hydration Diabetes mellitus type I, cosmetology educator assisted patient with tighter glycemic control with insulin pump mixed anxiety and depression, Stable asthma, Stable Gerd/reflux, Stable bilateral lower extremity edema, Low-dose hydrochlorothiazide and lisinopril, with Milton hose. Health Concerns: Complexity of type I diabetes Pertinent Studies: Chest x-ray echocardiogram Procedures: None performed during this hospital stay Patient Condition at Discharge: Stable Plan - Discharge Summary Discharge Rx Participant: Yes New Discharge Prescriptions: New hydroCHLOROthiazide [Hydrodiuril] 12.5 mg PO DAILY #30 cap Gabapentin [Neurontin] 100 mg PO TID cap lisinopriL [Zestril] 10 mg PO DAILY tab Gabapentin [Neurontin] 100 mg PO TID 3 Days #9 cap HYDROcodone/APAP 5-325MG [[place] 5-325] 1 each PO Q4HR PRN #12 tab PRN Reason: Pain Continue Insulin Aspart (For Pump) [NovoLOG (For Pump)] 0.01 unit SQ-PUMP CONTINUOUS Ibuprofen [Advil] 800 mg PO Q8HR PRN PRN Reason: Pain Vitamin C/Biotin [Hair, Skin and Nails] 1 tab PO DAILY LORazepam [Ativan] 0.5 mg PO DAILY PRN PRN Reason: Anxiety Acetaminophen Tab [Tylenol] 1,000 mg PO Q6HR PRN PRN Reason: Pain Discharge Medication List Insulin Aspart (For Pump) [NovoLOG (For Pump)] 0.01 unit SQ-PUMP CONTINUOUS 11/08/17 [History] Acetaminophen Tab [Tylenol] 1,000 mg PO Q6HR PRN 06/27/20 [History] Ibuprofen [Advil] 800 mg PO Q8HR PRN 06/27/20 [History] LORazepam [Ativan] 0.5 mg PO DAILY PRN 08/07/20 [History] Vitamin C/Biotin [Hair, Skin and Nails] 1 tab PO DAILY 08/07/20 [History] Gabapentin [Neurontin] 100 mg PO TID cap 08/09/20 [Rx] Gabapentin [Neurontin] 100 mg PO TID 3 Days #9 cap 08/09/20 [Rx] HYDROcodone/APAP 5-325MG [[place] 5-325] 1 each PO Q4HR PRN #12 tab 08/09/20 [Rx] hydroCHLOROthiazide [Hydrodiuril] 12.5 mg PO DAILY #30 cap 08/09/20 [Rx] lisinopriL [Zestril] 10 mg PO DAILY tab 08/09/20 [Rx] Follow up Appointment(s)/Referral(s): Mohit Curran MD [Primary Care Provider] - 08/10/20 8:40 am Shannon Melissa MD [STAFF PHYSICIAN] - 1 Week (Dr Araiza office will call you to set up appointment) Patient Instructions/Handouts: Edema (GEN), Shortness of Breath (GEN) Activity/Diet/Wound Care/Special Instructions: Outpatient Diabetic Education program could be contacted at [phone]. Discharge Disposition: HOME SELF-CARE
--- NOTE | 2020-08-09 23:11 | CONS ---
DATE OF CONSULTATION: 08/09/2020 This is a 29-year-old pleasant female. She came with a history of bilateral lower extremity swelling for the past few months. The patient had extensive workup by Cardiology and the patient also has a history of diabetes and some history of anxiety disorder. MEDICAL HISTORY: History of asthma, diabetes mellitus. No history of hypertension, coronary artery disease. Blood pressure is under control. No history of thyroid disorder. PHYSICAL EXAMINATION: NECK: Supple. Trachea central. CHEST: Clear. ABDOMEN: Soft. Femorals are palpable. PT/DP 1+. Patient has bilateral lymphedema. No evidence of varicosity. No history of brawny induration or venous stasis ulcer. PLAN: We will do a venous ultrasound bilateral to rule out DVT. Most likely this patient had a lymphedema pre Franco. Plan is we gave her DHAVAL cummings and I will see her in my office next week. We will arrange to the lymphedema clinic. I have requested for a venous ultrasound to make sure there is no evidence of DVT or reflex. Thank you for this consultation. MMODL / IJN: [id number] / ROLAN
== END 2020-08-09 16:40 | disposition home or self-care (01) ==
LOC: EC 17:28 → 6NMEDSUR 19:52
PROVIDERS: ADMIT Family Medicine; ATTEND Family Medicine
DX: R07.89 Other chest pain (principal); R06.09 Other forms of dyspnea; R94.31 Abnormal electrocardiogram [ECG] [EKG]; M79.89 Other specified soft tissue disorders; R60.0 Localized edema; R00.0 Tachycardia, unspecified; J45.909 Unspecified asthma, uncomplicated; E10.65 Type 1 diabetes mellitus with hyperglycemia; F41.8 Other specified anxiety disorders; K21.9 Gastro-esophageal reflux disease without esophagitis; L98.9 Disorder of the skin and subcutaneous tissue, unspecified; E66.9 Obesity, unspecified; Z68.27 Body mass index [BMI] 27.0-27.9, adult; Z20.822 Contact with and (suspected) exposure to COVID-19; Z86.14 Personal history of Methicillin resistant Staphylococcus aureus infection; Z96.41 Presence of insulin pump (external) (internal); Z79.899 Other long term (current) drug therapy; Z79.4 Long term (current) use of insulin; Z88.1 Allergy status to other antibiotic agents; Z83.49 Family history of other endocrine, nutritional and metabolic diseases; Z83.3 Family history of diabetes mellitus; Z83.79 Family history of other diseases of the digestive system; Z82.49 Family history of ischemic heart disease and other diseases of the circulatory system
CPT/HCPCS: 96361; 96366 ×3; 96375; 96365; 99285; 36415; 93005; 93306; 93351; 97161; 85379; 83880; 80061; 80053 ×3; 85652; 83735 ×3; 84443; 84484 ×2; 85025 ×3; 85610; 85730; 86140; 81001; 81025; 80306; 87086; 83036; 84145; 87635; 71046; 93970; 71275; G0378 ×3; J1250; J1940; J3475; Q9967

== ENCOUNTER 2020-12-14 18:40 | Emergency (ER) | payer BC ==
[2020-12-14 19:05] VITALS: BP 135/86; PULSE 106; RESP 18; TEMP 98.1
[2020-12-14] MEDS ORDERED: MORPHINE SULFATE 4 MG/ML SYRINGE IM STA (20:27)
--- NOTE | 2020-12-14 20:55 | XR ---
EXAMINATION TYPE: XR knee 4V RT DATE OF EXAM: 12/14/2020 CLINICAL HISTORY: pain TECHNIQUE: Three views of the right knee are obtained. Patellar sunrise view is also submitted. COMPARISON: None. FINDINGS: There is no acute fracture/dislocation. The tri-compartment joint spaces appear within no rmal limits. The overlying soft tissue appears unremarkable. IMPRESSION: There is no acute fracture or dislocation.ICD 10 NO FRACTURE, INITIAL EVALUATION
--- NOTE | 2020-12-14 21:04 | CT ---
EXAMINATION TYPE: CT brain wo con DATE OF EXAM: 12/14/2020 COMPARISON: None HISTORY: Fall, right sided head injury. CT DLP: 1099.[address] of the brain was performed. The ventricles, basal cisterns and sulci overlying the cerebral convexities demonstrate a normal appe arance. There is no evidence for intracranial hemorrhage or sulcal effacement. No mass effects are seen. Osseous calvarium is intact. If symptoms persist consider MRI as clinically warranted. IMPRESSION: 1. No acute intracranial process is seen at this time.
--- NOTE | 2020-12-14 21:20 | ED ---
Fall HPI - General Chief Complaint: Fall Stated Complaint: fall, head injury Time Seen by Provider: 12/14/20 20:05 Source: patient, RN notes reviewed Mode of arrival: wheelchair - History of Present Illness Initial Comments: Patient is a 30-year-old female that presents to emergency room complaining of right-sided head pain and right knee pain after falling approximately today. She notes she is lost her balance tripped over her feet and fell. She denied losing consciousness. She denied taking blood thinners. She was otherwise well-appearing while sitting up in bed in exam interview. She notes that she is just having a fairly significant headache that is 8 out of 10 with no relief. She denied any other issues or complaints. She denied chest pain shortness of breath vomiting diarrhea constipation fever fatigue chills. - Related Data Home Medications Medication Instructions Recorded Confirmed Insulin Aspart (For Pump) [NovoLOG 0.01 unit SQ-PUMP CONTINUOUS 11/08/17 08/07/20 (For Pump)] Acetaminophen Tab [Tylenol] 1,000 mg PO Q6HR PRN 06/27/20 08/07/20 Ibuprofen [Advil] 800 mg PO Q8HR PRN 06/27/20 08/07/20 LORazepam [Ativan] 0.5 mg PO DAILY PRN 08/07/20 08/07/20 Vitamin C/Biotin [Hair, Skin and 1 tab PO DAILY 08/07/20 08/07/20 Nails Chew] Previous Rx's Medication Instructions Recorded Gabapentin [Neurontin] 100 mg PO TID cap 08/09/20 Gabapentin [Neurontin] 100 mg PO TID 3 Days #9 cap 08/09/20 HYDROcodone/APAP 5-325MG [Alto 1 each PO Q4HR PRN #12 tab 08/09/20 5-325] hydroCHLOROthiazide [Hydrodiuril] 12.5 mg PO DAILY #30 cap 08/09/20 lisinopriL [Zestril] 10 mg PO DAILY tab 08/09/20 Allergies Allergy/AdvReac Type Severity Reaction Status Date / Time cephalexin [From Keflex] Allergy Unknown Verified 12/14/20 19:03 Review of Systems ROS Statement: Those systems with pertinent positive or pertinent negative responses have been documented in the HPI. ROS Other: All systems not noted in ROS Statement are negative. Past Medical History Past Medical History: Asthma, Diabetes Mellitus, GERD/Reflux, Skin Disorder Additional Past Medical History / Comment(s): hx. hiatal hernia, wounds in groin area, buttocks-thought was ingrown hairs History of Any Multi-Drug Resistant Organisms: MRSA Date of last positivie culture/infection: 2009 MDRO Source:: unknown Past Surgical History: Section Additional Past Surgical History / Comment(s): cervical abblation Past Anesthesia/Blood Transfusion Reactions: No Reported Reaction, Motion Sickness Past Psychological History: Anxiety, Depression Smoking Status: Never smoker Past Alcohol Use History: Occasional Past Drug Use History: None Reported - Past Family History Mother Family Medical History: Thyroid Disorder Additional Family Medical History / Comment(s): gestational diabetes Father Additional Family Medical History / Comment(s): crohnes disease General Exam Limitations: no limitations General appearance: alert, in no apparent distress Head exam: Present: atraumatic, normocephalic, normal inspection Eye exam: Present: normal appearance, PERRL, EOMI. Absent: scleral icterus, conjunctival injection, periorbital swelling ENT exam: Present: normal exam, mucous membranes moist Neck exam: Present: normal inspection Respiratory exam: Present: normal lung sounds bilaterally. Absent: respiratory distress, wheezes, rales, rhonchi, stridor Cardiovascular Exam: Present: regular rate, normal rhythm, normal heart sounds. Absent: systolic murmur, diastolic murmur, rubs, gallop, clicks Extremities exam: Present: normal inspection, full ROM, normal capillary refill, other (Patient's to right knee nonbleeding.). Absent: tenderness, pedal edema, joint swelling, calf tenderness Neurological exam: Present: alert, oriented X3 Psychiatric exam: Present: normal affect, normal mood Skin exam: Present: warm, dry, intact, normal color. Absent: rash Course Vital Signs 12/14/20 19:03 Temperature 98.1 F Pulse Rate 106 H Respiratory 18 Rate Blood Pressure 135/86 O2 Sat by Pulse 100 Oximetry Medical Decision Making - Medical Decision Making 30-year-old female status post fall in parking lot complaining of head pain and right knee pain. CT of the brain, x-ray of right knee, [address] of the brain and x-rays of right knee negative for any acute process. Patient is agreeable with discharge home with follow-up primary care. Patient most likely has a concussion. Case discussed with Dr. Benavides, patient discharge home. - Radiology Data Radiology results: report reviewed, image reviewed CT brain: No acute intracranial process seen at this time. X-ray right knee: There is no acute fracture dislocation. Disposition Clinical Impression: Fall, Concussion, Contusion of right knee Disposition: HOME SELF-CARE Condition: Stable Instructions (If sedation given, give patient instructions): Fall Prevention (ED) Additional Instructions: Please return to the Emergency Department if symptoms worsen or any other concerns. Follow-up with primary care 1-2 days. Take Motrin Tylenol as it for pain. Get plenty rest. Is patient prescribed a controlled substance at d/c from ED?: No Referrals: Mohit Curran MD [Primary Care Provider] - 1-2 days Time of Disposition: 21:20
== END 2020-12-14 21:30 | disposition home or self-care (01) ==
LOC: EC 18:40
DX: S06.0X0A Concussion without loss of consciousness, initial encounter (principal); S80.01XA Contusion of right knee, initial encounter; E11.9 Type 2 diabetes mellitus without complications; K21.9 Gastro-esophageal reflux disease without esophagitis; F41.9 Anxiety disorder, unspecified; F32.9 Major depressive disorder, single episode, unspecified; J45.909 Unspecified asthma, uncomplicated; Z79.4 Long term (current) use of insulin; Z88.1 Allergy status to other antibiotic agents; W01.0XXA Fall on same level from slipping, tripping and stumbling without subsequent striking against object, initial encounter
CPT/HCPCS: 99284; 96372; 73564; 70450; J2270

== ENCOUNTER → 2021-03-08 | Outpatient (CLI) | payer BC ==
[2021-03-09 00:50] LABS: African American GFR (CKD) 141.4 (60.0-200.0); Anion Gap 4.3 mmol/L (10.00-18.00); BUN/Creat Ratio 36.9 Ratio (12.00-20.00); Blood Urea Nitrogen 21.4 mg/dL (9.0-27.0); C Reactive Protein 0.4 mg/dL (0.00-0.80); Calcium 9.6 mg/dL (8.7-10.3); Carbon Dioxide 29.9 mmol/L (20.0-27.5); Potassium 4.3 mmol/L (3.5-5.5); T4, Free (Free Thyroxine) 1.15 ng/dL (0.800-1.800)
[2021-03-09 04:35] LABS: Protein, Total 6.2 g/dL (6.2-8.2)
[2021-03-09 05:01] LABS: Anti-DNA, DS unit <1.0 IU/mL; DNA Double-Stranded NEGATIVE (NEGATIVE)
== END | disposition home or self-care (01) ==
LOC: LABWHC1 16:20
PROVIDERS: ATTEND Psychiatry & Neurology Neurology
DX: E11.9 Type 2 diabetes mellitus without complications (principal); M62.81 Muscle weakness (generalized); G60.9 Hereditary and idiopathic neuropathy, unspecified
CPT/HCPCS: 36415; 80048; 82175; 82550; 82570; 82607; 83655; 83825; 84165; 84439; 84443; 85652; 86140; 86225; 86618

== ENCOUNTER → 2021-04-13 | Outpatient (CLI) | payer BC ==
--- NOTE | 2021-04-13 17:29 | MR ---
EXAMINATION TYPE: MR lumbar spine wo/w con DATE OF EXAM: 04/13/2021 COMPARISON: 09/04/2016 HISTORY: no prior, muscle pain and weakness in back and BLE for 9 months CONTRAST: Standard multiplanar, multisequence MRI departmental protocol images were obtained without contrast a nd with 8 mL intravenous Gadavist gadolinium contrast. The lumbar vertebrae have normal alignment. Disc spaces are fairly normal. There is no lumbar disc he rniation. There is no spinal stenosis. Lumbar nerve roots appear fairly normal. The neural foramina a re widely patent. There is no lumbar paraspinal mass. Posterior elements are intact. Contrast images show no pathologic enhancement. There is no evidence of focal bone destruction. The s acroiliac joints appear normal. IMPRESSION: Negative MR scan of the lumbar spine. No adverse change compared to old exam.
== END | disposition home or self-care (01) ==
LOC: RADMRIMAIN 12:27
PROVIDERS: ATTEND Psychiatry & Neurology Neurology
DX: M79.18 Myalgia, other site (principal); R29.898 Other symptoms and signs involving the musculoskeletal system
CPT/HCPCS: 72158; A9585

== ENCOUNTER 2021-07-04 10:39 | Observation (INO) | payer BC ==
--- NOTE | 2021-07-04 12:44 | ED ---
General Adult HPI - General Chief complaint: Shortness of Breath Stated complaint: Recheck/Abnormal Lab/High HR Time Seen by Provider: 07/04/21 12:09 Source: patient, family Mode of arrival: wheelchair Limitations: no limitations - History of Present Illness Initial comments: Dictation was produced using [employer] dictation software. please excuse any grammatical, word or spelling errors. Chief Complaint: 30-year-old female presents to the emergency department for exertional dyspnea, exertional dizziness and tachycardia History of Present Illness: To 30-year-old female she went to her primary care physician's office for a follow-up appointment. She seen the mid-level provider there. Patient states that since being discharged from the hospital 10 days ago she is been feeling shortness of breath. She was admitted for nephrotic syndrome with proteinuria. During her admission she had a CT-guided kidney biopsy. At that time she also had a UTI at that time. Patient went to primary care physician's office where she was found to have orthostatic tachycardia. Patient's heart rate was noted to jump up to the 140 range with standing. At same time she's been feeling short of breath. Patient denies any calf tenderness popliteal tenderness or medial thigh tenderness. She has no history of blood clot. Patient's been on 10 days of increase in her blood pressure medications. Patient also has been on diuretics. The ROS documented in this emergency department record has been reviewed and confirmed by me. Those systems with pertinent positive or negative responses have been documented in the HPI. All other systems are other negative and/or noncontributory. PHYSICAL EXAM: General Impression: Alert and oriented x3, not in acute distress HEENT: Normocephalic atraumatic, extra-ocular movements intact, pupils equal and reactive to light bilaterally, mucous membranes moist. Cardiovascular: Heart regular rate and rhythm Chest: Able to complete full sentences, no retractions, no tachypnea Abdomen: abdomen soft, non-tender, non-distended, no organomegaly Musculoskeletal: Pulses present and equal in all extremities, no peripheral edema Motor: no focal deficits noted Neurological: CN II-XII grossly intact, no focal motor or sensory deficits noted Skin: Intact with no visualized rashes Psych: Normal affect and mood ED course: 30-year-old female presents to the emergency department from primary care physician's office for evaluation of dyspnea all signs upon arrival shows heart rate of 110, blood pressure 98/69, rest of vital signs within acceptable limits. Laboratory evaluation obtained. CBC unremarkable. Coag panel is negative. D- dimer is negative at 0.42. Venous blood gas and metabolic panel is all within acceptable limits. Pending urine studies. Patient reevaluated bedside and still tachycardic. This points unclear what is causing patient's tachycardia. Highly doubt that patient's dyspnea is from a the given benign d-dimer levels. Nonetheless patient will be admitted for tachycardia monitoring. Will be admitted to Dr. Curran's service. EKG interpretation: Ventricular rate 113, sinus tachycardia, FL interval 124, care site 2, QTc 45. No FL prolongation, no QTC prolongation, no ST or T-wave changes noted. . Overall, this EKG is unremarkable - Related Data Home Medications Medication Instructions Recorded Confirmed Insulin Aspart (For Pump) [NovoLOG 0.01 unit SQ-PUMP CONTINUOUS 11/08/17 07/04/21 (For Pump)] Amitriptyline HCl [Elavil] 50 mg PO HS 06/17/21 07/04/21 Losartan [Cozaar] 25 mg PO DAILY 07/04/21 07/04/21 Torsemide [Demadex] 10 mg PO DAILY 07/04/21 07/04/21 Previous Rx's Medication Instructions Recorded Atorvastatin [Lipitor] 20 mg PO DAILY tab 06/20/21 Allergies Allergy/AdvReac Type Severity Reaction Status Date / Time cephalexin [From Keflex] Allergy Swelling Verified 07/04/21 13:01 (tongue) Review of Systems ROS Statement: Those systems with pertinent positive or pertinent negative responses have been documented in the HPI. ROS Other: All systems not noted in ROS Statement are negative. Past Medical History Past Medical History: Asthma, Diabetes Mellitus, GERD/Reflux, Skin Disorder Additional Past Medical History / Comment(s): hx. hiatal hernia, wounds in groin area, buttocks-thought was ingrown hairs, diabetic kidney disease History of Any Multi-Drug Resistant Organisms: MRSA Date of last positivie culture/infection: 2009 MDRO Source:: unknown Past Surgical History: Section Additional Past Surgical History / Comment(s): cervical abblation Past Anesthesia/Blood Transfusion Reactions: No Reported Reaction, Motion Sickness Additional Past Anesthesia/Blood Transfusion Reaction / Comment(s): Pt has clausterphobia. Past Psychological History: Anxiety, Depression Smoking Status: Never smoker Past Alcohol Use History: Occasional Past Drug Use History: None Reported - Past Family History Mother Family Medical History: Thyroid Disorder Additional Family Medical History / Comment(s): gestational diabetes Father Additional Family Medical History / Comment(s): crohnes disease General Exam Limitations: no limitations Course Vital Signs 07/04/21 07/04/21 12:02 16:12 Temperature 98.1 F Pulse Rate 110 H 115 H Respiratory 18 18 Rate Blood Pressure 98/69 123/86 O2 Sat by Pulse 100 99 Oximetry Medical Decision Making - Lab Data Result diagrams: 07/04/21 13:25 07/04/21 13:25 Lab Results 07/04/21 07/04/21 07/04/21 Range/Units 13:25 13:25 13:25 WBC 8.2 (3.8-10.6) k/uL RBC 4.37 (3.80-5.40) m/uL Hgb 12.5 (11.4-16.0) gm/dL Hct 37.8 (34.0-46.0) % MCV 86.5 (80.0-100.0) fL MCH 28.6 (25.0-35.0) pg MCHC 33.1 (31.0-37.0) g/dL RDW 13.5 (11.5-15.5) % Plt Count 253 (150-450) k/uL MPV 7.3 Neutrophils % 67 % Lymphocytes % 27 % Monocytes % 4 % Eosinophils % 0 % Basophils % 1 % Neutrophils # 5.5 (1.3-7.7) k/uL Lymphocytes # 2.2 (1.0-4.8) k/uL Monocytes # 0.4 (0-1.0) k/uL Eosinophils # 0.0 (0-0.7) k/uL Basophils # 0.0 (0-0.2) k/uL PT 9.9 (9.0-12.0) sec INR 0.9 (<1.2) APTT 24.9 (22.0-30.0) sec D-Dimer (<0.60) mg/L FEU VBG pH (7.31-7.41) VBG pCO2 (37-51) mmHg VBG HCO3 (24-28) mmol/L Sodium 133 L (137-145) mmol/L Potassium 5.2 H (3.5-5.1) mmol/L Chloride 104 (98-107) mmol/L Carbon Dioxide 23 (22-30) mmol/L Anion Gap 6 mmol/L BUN 35 H (7-17) mg/dL Creatinine 0.95 (0.52-1.04) mg/dL Est GFR (CKD-EPI)AfAm >90 (>60 ml/min/1.73 sqM) Est GFR (CKD-EPI)NonAf 80 (>60 ml/min/1.73 sqM) Glucose 174 H (74-99) mg/dL Plasma Lactic Acid Reggie (0.7-2.0) mmol/L Calcium 9.2 (8.4-10.2) mg/dL Magnesium 2.0 (1.6-2.3) mg/dL Total Bilirubin 0.5 (0.2-1.3) mg/dL AST 35 (14-36) U/L ALT 62 H (4-34) U/L Alkaline Phosphatase 131 H (38-126) U/L Troponin I (0.000-0.034) ng/mL Total Protein 6.5 (6.3-8.2) g/dL Albumin 3.4 L (3.5-5.0) g/dL 07/04/21 07/04/21 07/04/21 Range/Units 13:25 13:25 13:25 WBC (3.8-10.6) k/uL RBC (3.80-5.40) m/uL Hgb (11.4-16.0) gm/dL Hct (34.0-46.0) % MCV (80.0-100.0) fL MCH (25.0-35.0) pg MCHC (31.0-37.0) g/dL RDW (11.5-15.5) % Plt Count (150-450) k/uL MPV Neutrophils % % Lymphocytes % % Monocytes % % Eosinophils % % Basophils % % Neutrophils # (1.3-7.7) k/uL Lymphocytes # (1.0-4.8) k/uL Monocytes # (0-1.0) k/uL Eosinophils # (0-0.7) k/uL Basophils # (0-0.2) k/uL PT (9.0-12.0) sec INR (<1.2) APTT (22.0-30.0) sec D-Dimer 0.42 (<0.60) mg/L FEU VBG pH (7.31-7.41) VBG pCO2 (37-51) mmHg VBG HCO3 (24-28) mmol/L Sodium (137-145) mmol/L Potassium (3.5-5.1) mmol/L Chloride (98-107) mmol/L Carbon Dioxide (22-30) mmol/L Anion Gap mmol/L BUN (7-17) mg/dL Creatinine (0.52-1.04) mg/dL Est GFR (CKD-EPI)AfAm (>60 ml/min/1.73 sqM) Est GFR (CKD-EPI)NonAf (>60 ml/min/1.73 sqM) Glucose (74-99) mg/dL Plasma Lactic Acid Reggie 0.8 (0.7-2.0) mmol/L Calcium (8.4-10.2) mg/dL Magnesium (1.6-2.3) mg/dL Total Bilirubin (0.2-1.3) mg/dL AST (14-36) U/L ALT (4-34) U/L Alkaline Phosphatase (38-126) U/L Troponin I <0.012 (0.000-0.034) ng/mL Total Protein (6.3-8.2) g/dL Albumin (3.5-5.0) g/dL 07/04/21 Range/Units 14:14 WBC (3.8-10.6) k/uL RBC (3.80-5.40) m/uL Hgb (11.4-16.0) gm/dL Hct (34.0-46.0) % MCV (80.0-100.0) fL MCH (25.0-35.0) pg MCHC (31.0-37.0) g/dL RDW (11.5-15.5) % Plt Count (150-450) k/uL MPV Neutrophils % % Lymphocytes % % Monocytes % % Eosinophils % % Basophils % % Neutrophils # (1.3-7.7) k/uL Lymphocytes # (1.0-4.8) k/uL Monocytes # (0-1.0) k/uL Eosinophils # (0-0.7) k/uL Basophils # (0-0.2) k/uL PT (9.0-12.0) sec INR (<1.2) APTT (22.0-30.0) sec D-Dimer (<0.60) mg/L FEU VBG pH 7.35 (7.31-7.41) VBG pCO2 43 (37-51) mmHg VBG HCO3 23 L (24-28) mmol/L Sodium (137-145) mmol/L Potassium (3.5-5.1) mmol/L Chloride (98-107) mmol/L Carbon Dioxide (22-30) mmol/L Anion Gap mmol/L BUN (7-17) mg/dL Creatinine (0.52-1.04) mg/dL Est GFR (CKD-EPI)AfAm (>60 ml/min/1.73 sqM) Est GFR (CKD-EPI)NonAf (>60 ml/min/1.73 sqM) Glucose (74-99) mg/dL Plasma Lactic Acid Reggie (0.7-2.0) mmol/L Calcium (8.4-10.2) mg/dL Magnesium (1.6-2.3) mg/dL Total Bilirubin (0.2-1.3) mg/dL AST (14-36) U/L ALT (4-34) U/L Alkaline Phosphatase (38-126) U/L Troponin I (0.000-0.034) ng/mL Total Protein (6.3-8.2) g/dL Albumin (3.5-5.0) g/dL Disposition Clinical Impression: Tachycardia Disposition: ADMITTED IP TO THIS HOSP Condition: Fair Referrals: Mohit Curran MD [Primary Care Provider] - 1-2 days Decision Time: 16:33
[2021-07-04 13:43] LABS: Basophils % (A) 1 %; Eosinophils % (A) 0 %; HCT 37.8 % (34.0-46.0); HGB 12.5 gm/dL (11.4-16.0); Lymphocytes # (A) 2.2 k/uL (1.0-4.8); Lymphocytes % (A) 27 %; MCH 28.6 pg (25.0-35.0); MCHC 33.1 g/dL (31.0-37.0); MCV 86.5 fL (80.0-100.0); Mean Platelet Volume 7.3; Monocytes # (A) 0.4 k/uL (0-1.0); Monocytes % (A) 4 %; Neutrophils # (A) 5.5 k/uL (1.3-7.7); Neutrophils % (A) 67 %; Platelet Count 253 k/uL (150-450); RBC 4.37 m/uL (3.80-5.40); RDW 13.5 % (11.5-15.5); WBC 8.2 k/uL (3.8-10.6)
[2021-07-04 13:53] LABS: ALT 62 U/L (4-34); AST 35 U/L (14-36); African American GFR (CKD) >90 (>60 ml/min/1.73 sqM); Albumin 3.4 g/dL (3.5-5.0); Alkaline Phosphatase 131 U/L (38-126); Anion Gap 6 mmol/L; Blood Urea Nitrogen 35 mg/dL (7-17); Calcium 9.2 mg/dL (8.4-10.2); Carbon Dioxide 23 mmol/L (22-30); Chloride 104 mmol/L (98-107); Glucose 174 mg/dL (74-99); Non-African American GFR(CKD) 80 (>60 ml/min/1.73 sqM); Potassium 5.2 mmol/L (3.5-5.1); Sodium 133 mmol/L (137-145); Total Bilirubin 0.5 mg/dL (0.2-1.3); Total Protein 6.5 g/dL (6.3-8.2)
[2021-07-04 13:57] LABS: INR 0.9 (<1.2); Partial Thromboplastin Time 24.9 sec (22.0-30.0); Prothrombin Time 9.9 sec (9.0-12.0)
[2021-07-04 14:22] LABS: VBG PH 7.35 (7.31-7.41)
[2021-07-04] MEDS ORDERED: SODIUM CHLORIDE 0.9% 500 ML 500 ML IV STA (16:24)
[2021-07-04] MEDS ORDERED: NALOXONE 0.4 MG/ML 1 ML VIAL IV PRN (16:30)
[2021-07-04] MEDS: SODIUM CHLORIDE 0.9% 1,000 ML IV SCH (19:10)
[2021-07-04 20:11] LABS: Appearance,Urine Cloudy (Clear); Bacteria,Urine Many /hpf; Bilirubin,Urine Negative (Negative); Blood,Urine Negative (Negative); Budding Yeast,Urine Few /hpf; Color,Urine Yellow; Glucose,Urine (UA) 1+ (Negative); Hyaline Casts,Urine 9 /lpf (0-2); Ketones,Urine Negative (Negative); Leukocyte Esterase,Urine Large (Negative); Mucus,Urine Occasional /hpf; Nitrite,Urine Negative (Negative); PH, Urine 7.5 (5.0-8.0); Protein,Urine 2+ (Negative); RBC,Urine 2 /hpf (0-5); Specific Gravity,Urine 1.015 (1.001-1.035); Squamous Epithelial Cell,Urine 1 /hpf (0-4); Urobilinogen,Urine <2.0 mg/dL (<2.0); WBC,Urine 29 /hpf (0-5)
[2021-07-04] MEDS ORDERED: INSULIN ASPART (NovoLOG) 100 UNIT/ML VIAL SQ PRN (21:53)
[2021-07-04] MEDS ORDERED: ACETAMINOPHEN TAB 325 MG TAB PO PRN (21:59)
[2021-07-04] MEDS ORDERED: Insulin Aspart (For Pump) 100 UNIT/ML VIAL SQ-PUMP SCH (22:00)
[2021-07-04] MEDS ORDERED: AMITRIPTYLINE HCL 50 MG TAB PO SCH (22:15)
--- NOTE | 2021-07-04 22:32 | XR ---
EXAMINATION TYPE: XR chest 2V DATE OF EXAM: 07/04/2021 COMPARISON: 08/07/2020 HISTORY: Dysrhythmia TECHNIQUE: 2 views FINDINGS: Heart and mediastinum are normal. Lungs are clear. Diaphragm is normal. Bony thorax appears normal. There are chest leads. IMPRESSION: Normal chest. No change.
[2021-07-05 05:27] LABS: Glucose,Whole Blood 181 mg/dL (75-99)
[2021-07-05 06:44] LABS: Glucose,Whole Blood 241 mg/dL (75-99)
[2021-07-05] MEDS ORDERED: ATORVASTATIN 20 MG TAB PO SCH (09:00)
--- NOTE | 2021-07-05 09:55 | P.CRDCN ---
History of Present Illness Consult date: 07/05/21 History of present illness: HISTORY OF PRESENT ILLNESS: This is a 30 year old female with a past medical history significant for Type I diabetes. 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 We have been asked to see the patient in consultation for tachycardia. Patient examined at the bedside. Patient states she was recently hospitalized secondary to proteinuria. Patient states she was transferred to [facility] and underwent a kidney biopsy. She states she was found to have diabetic kidney disease. Patient states she was started on hydrochlorothiazide, Lipitor, and Cozaar. Patient states yesterday she went to her PCP for a follow-up appointment and was found to have tachycardia. She was sent to emergency room for further evaluation. The patient states that since being discharged from [facility] every time she stands up she gets dizzy, sweaty, and feels palpitations. She denies any syncope. * EKG reveals sinus tachycardia with no signs of acute ischemia * Chest xray negative for acute process * Laboratory data: WBC 8.2. Hemoglobin 12.5. Platelet count 253. D-dimer 0.42. Sodium 133. Potassium 5.2. BUN 35. Creatinine 0.95. * Current home cardiac medications include Lipitor 20 mg daily, Cozaar 25 mg daily, and hydrochlorothiazide, dose unknown * Most recent echocardiogram obtained in July 2020 revealed ejection fraction 55%, mild MR, mild TR * Dobutamine stress test performed in July 2020 was negative for ischemia REVIEW OF SYSTEMS: At the time of my exam: CONSTITUTIONAL: Denies fever or chills. HEENT: Denies blurred vision, vision changes, or eye pain. Denies hemoptysis CARDIOVASCULAR: Denies chest pain. Denies orthopnea. Denies PND. Denies palpitations RESPIRATORY: Denies shortness of breath. GASTROINTESTINAL: Denies abdominal pain. Denies nausea or vomiting. HEMATOLOGIC: Denies bleeding disorders. GENITOURINARY: Denies any blood in urine. SKIN: Denies pruitis. Denies rash. PHYSICAL EXAM: VITAL SIGNS: Reviewed. GENERAL: Well-developed in no acute distress. HEENT: Head is normocephalic. Pupils are equal, round. Sclerae anicteric. Mucous membranes of the mouth are moist. Neck supple. No JVD or thyromegaly LUNGS: Respirations even and unlabored. Lungs essentially clear to auscultation bilaterally. HEART: Regular rate and rhythm. S1 and S2 heard. ABDOMEN: Soft. Nondistended. Nontender. EXTREMITIES: Normal range of motion. No clubbing or cyanosis. Peripheral pulses intact. No lower extremity edema NEUROLOGIC: Awake and alert. Oriented x 3. ASSESSMENT: Palpitations Sinus tachycardia Elevated BUN Type 1 diabetes Diabetic kidney disease Chronic lower extremity edema, secondary to venous insufficiency PLAN: Obtain 2-D echo to assess cardiac structure and function Stop Cozaar. Do not resume at discharge Recommend resuming HCTZ at discharge with a dosage of 25mg daily. Patient states she is not taking Demadex at home. Check TSH Check orthostatic blood pressures Patient may be discharged home from a cardiac standpoint and follow up with Dr. Iraheta Nurse practitioner note has been reviewed by physician. Signing provider agrees with the documented findings, assessment, and plan of care. Past Medical History Past Medical History: Asthma, Diabetes Mellitus, GERD/Reflux, Skin Disorder Additional Past Medical History / Comment(s): hx. hiatal hernia, wounds in groin area, buttocks-thought was ingrown hairs, diabetic kidney disease History of Any Multi-Drug Resistant Organisms: MRSA Date of last positivie culture/infection: 2009 MDRO Source:: unknown Past Surgical History: Section Additional Past Surgical History / Comment(s): cervical abblation Past Anesthesia/Blood Transfusion Reactions: No Reported Reaction, Motion Sickness Additional Past Anesthesia/Blood Transfusion Reaction / Comment(s): Pt has clausterphobia. Past Psychological History: Anxiety, Depression Additional Psychological History / Comment(s): Pt resides with her parents and her 2 children ages 7 and 9 yrs. She is independent. She states her depression is stable at this time but states yesterday, 06/17/21, she did feet more depressed and had thoughts that she would be fine if she went to sleep and did not wake up. Pt denies suicidal thoughts/plans. Smoking Status: Never smoker Past Alcohol Use History: Occasional Additional Past Alcohol Use History / Comment(s): Pt started smoking in 2007 and quit in 2019 Past Drug Use History: None Reported - Past Family History Mother Family Medical History: Thyroid Disorder Additional Family Medical History / Comment(s): gestational diabetes Father Additional Family Medical History / Comment(s): crohnes disease Medications and Allergies Home Medications Medication Instructions Recorded Confirmed Type Insulin Aspart (For Pump) [NovoLOG 0.01 unit SQ-PUMP CONTINUOUS 11/08/17 07/04/21 History (For Pump)] Amitriptyline HCl [Elavil] 50 mg PO HS 06/17/21 07/04/21 History Atorvastatin [Lipitor] 20 mg PO DAILY tab 06/20/21 07/04/21 Rx Losartan [Cozaar] 25 mg PO DAILY 07/04/21 07/04/21 History Torsemide [Demadex] 10 mg PO DAILY 07/04/21 07/04/21 History Allergies Allergy/AdvReac Type Severity Reaction Status Date / Time cephalexin [From Keflex] Allergy Swelling Verified 07/04/21 13:01 (tongue) Physical Exam Vitals: Vital Signs Temp Pulse Pulse Resp BP BP BP 07/05/21 07:00 97.8 F 109 H 18 127/84 07/05/21 02:00 98.1 F 116 H 20 122/88 07/05/21 01:45 97.7 F 109 H 18 109/64 07/04/21 19:45 109 H 18 147/88 07/04/21 16:12 115 H 18 123/86 07/04/21 12:02 98.1 F 110 H 18 98/69 Pulse Ox 07/05/21 07:00 97 07/05/21 02:00 100 07/05/21 01:45 97 07/04/21 19:45 100 07/04/21 16:12 99 07/04/21 12:02 100 Intake and Output 07/04/21 07/05/21 07/05/21 22:59 06:59 14:59 Other: # Voids 1 Weight 87.543 kg Results 07/04/21 13:25 07/04/21 13:25 Cardiac Enzymes 07/04/21 07/04/21 Range/Units 13:25 13:25 AST 35 (14-36) U/L Troponin I <0.012 (0.000-0.034) ng/mL Coagulation 07/04/21 Range/Units 13:25 PT 9.9 (9.0-12.0) sec APTT 24.9 (22.0-30.0) sec CBC 07/04/21 Range/Units 13:25 WBC 8.2 (3.8-10.6) k/uL RBC 4.37 (3.80-5.40) m/uL Hgb 12.5 (11.4-16.0) gm/dL Hct 37.8 (34.0-46.0) % Plt Count 253 (150-450) k/uL Comprehensive Metabolic Panel 07/04/21 Range/Units 13:25 Sodium 133 L (137-145) mmol/L Potassium 5.2 H (3.5-5.1) mmol/L Chloride 104 (98-107) mmol/L Carbon Dioxide 23 (22-30) mmol/L BUN 35 H (7-17) mg/dL Creatinine 0.95 (0.52-1.04) mg/dL Glucose 174 H (74-99) mg/dL Calcium 9.2 (8.4-10.2) mg/dL AST 35 (14-36) U/L ALT 62 H (4-34) U/L Alkaline Phosphatase 131 H (38-126) U/L Total Protein 6.5 (6.3-8.2) g/dL Albumin 3.4 L (3.5-5.0) g/dL Current Medications Generic Name Dose Route Start Last Admin Trade Name Freq PRN Reason Stop Dose Admin Acetaminophen 650 mg 07/04/21 21:59 Acetaminophen Tab 325 Mg Tab PO Q4HR PRN Fever and/ or Pain Amitriptyline HCl 50 mg 07/04/21 22:15 07/04/21 22:43 Amitriptyline Hcl 50 Mg Tab PO 50 mg HS ANDRE Administration Atorvastatin Calcium 20 mg 07/05/21 09:00 Atorvastatin 20 Mg Tab PO DAILY ANDRE Sodium Chloride 1,000 mls @ 20 mls/hr 07/04/21 16:30 07/04/21 19:10 Saline 0.9% IV 20 mls/hr .Q24H ANDRE Administration Insulin Aspart 0.01 unit 07/04/21 22:00 07/04/21 22:43 Insulin Aspart (For Pump) 100 Unit/Ml Vial SQ-PUMP 0.01 unit CONTINUOUS ANDRE Administration Insulin Aspart 0 unit 07/04/21 21:53 Insulin Aspart (Novolog) 100 Unit/Ml Vial SQ DAILY PRN Insulin Pump Replacement Naloxone HCl 0.2 mg 07/04/21 16:30 Naloxone 0.4 Mg/Ml 1 Ml Vial IV Q2M PRN Opioid Reversal Intake and Output 07/04/21 07/05/21 07/05/21 22:59 06:59 14:59 Other: # Voids 1 Weight 87.543 kg 07/04/21 13:25 07/04/21 13:25
[2021-07-05] MEDS: SODIUM CHLORIDE 0.9% 250 ML IV SCH ×9 (10:44→15:01)
[2021-07-05 11:34] LABS: Glucose,Whole Blood 254 mg/dL (75-99)
[2021-07-05 11:54] LABS: ALT 85 U/L (4-34); AST 109 U/L (14-36); African American GFR (CKD) >90 (>60 ml/min/1.73 sqM); Albumin 2.9 g/dL (3.5-5.0); Alkaline Phosphatase 119 U/L (38-126); Anion Gap 5 mmol/L; Blood Urea Nitrogen 29 mg/dL (7-17); Calcium 8.5 mg/dL (8.4-10.2); Carbon Dioxide 20 mmol/L (22-30); Chloride 110 mmol/L (98-107); Glucose 269 mg/dL (74-99); Magnesium 1.8 mg/dL (1.6-2.3); Non-African American GFR(CKD) >90 (>60 ml/min/1.73 sqM); Potassium 4.9 mmol/L (3.5-5.1); Sodium 135 mmol/L (137-145); Total Bilirubin 0.5 mg/dL (0.2-1.3); Total Protein 5.9 g/dL (6.3-8.2)
[2021-07-05 12:12] LABS: MCH 29.7 pg (25.0-35.0); MCHC 33.3 g/dL (31.0-37.0); MCV 89.1 fL (80.0-100.0); Platelet Count 238 k/uL (150-450); RBC 4.04 m/uL (3.80-5.40); RDW 13.4 % (11.5-15.5); WBC 7.5 k/uL (3.8-10.6)
--- NOTE | 2021-07-05 12:22 | P.HPIM ---
History of Present Illness H&P Date: 07/05/21 Chief Complaint: palpitation Patient is a very pleasant 30-year-old female that was referred to emergency room for palpitations, tachycardia and shortness of breath. Patient was recently discharged from [facility] following a kidney biopsy for proteinuria. She was started on losartan and hydrochlorothiazide on discharge. Patient returned to the office yesterday for a follow up and reported feeling palpitations, dizziness and dyspnea since she returned home. Attempted to obtain orthostatic blood pressure measurements when the patient became pale, tachycardic, diaphoretic, and hyperventilating. She was then referred to the emergency room for evaluation. Patient has a medical history of type 1 diabetes, asthma, GERD, anxiety, and depression. Ddimer was 0.42, sodium was 133, BUN 35, creat 0.95. Patient was given IV fluids that improved symptoms. Nephrology and cardiology were consulted. Review of Systems Constitutional: Denies chills, Denies fever Ears, nose, mouth and throat: Denies headache, Denies vertigo Cardiovascular: Reports decreased exercise tolerance, Reports dyspnea on exertion, Reports lightheadedness, Reports palpitations, Reports rapid heart beat, Reports shortness of breath, Denies syncope Respiratory: Denies cough, Denies wheezing Gastrointestinal: Denies abdominal pain, Denies change in bowel habits Genitourinary: Denies dysuria, Denies urgency Musculoskeletal: Denies frequent falls, Denies leg numbness/tingling Integumentary: Denies change in hair/nails, Denies wounds Neurological: Reports gait dysfunction Psychiatric: Denies anxiety, Denies insomnia Endocrine: Reports fatigue, Reports high blood sugars, Reports palpitations, Denies polyuria Hematologic/Lymphatic: Denies easy bruising Allergic/Immunologic: Denies angioedema Past Medical History Past Medical History: Asthma, Diabetes Mellitus, GERD/Reflux, Skin Disorder Additional Past Medical History / Comment(s): hx. hiatal hernia, wounds in groin area, buttocks-thought was ingrown hairs, diabetic kidney disease History of Any Multi-Drug Resistant Organisms: MRSA Date of last positivie culture/infection: 2009 MDRO Source:: unknown Past Surgical History: Section Additional Past Surgical History / Comment(s): cervical abblation Past Anesthesia/Blood Transfusion Reactions: No Reported Reaction, Motion Sickness Additional Past Anesthesia/Blood Transfusion Reaction / Comment(s): Pt has clausterphobia. Kidney biopsy Past Psychological History: Anxiety, Depression Additional Psychological History / Comment(s): Pt resides with her parents and her 2 children ages 7 and 9 yrs. She is independent. She states her depression is stable at this time but states yesterday, 06/17/21, she did feet more depressed and had thoughts that she would be fine if she went to sleep and did not wake up. Pt denies suicidal thoughts/plans. Smoking Status: Never smoker Past Alcohol Use History: Occasional Additional Past Alcohol Use History / Comment(s): Pt started smoking in 2007 and quit in 2019 Past Drug Use History: None Reported - Past Family History Mother Family Medical History: Thyroid Disorder Additional Family Medical History / Comment(s): gestational diabetes Father Additional Family Medical History / Comment(s): crohnes disease Medications and Allergies Home Medications Medication Instructions Recorded Confirmed Type Insulin Aspart (For Pump) [NovoLOG 0.01 unit SQ-PUMP CONTINUOUS 11/08/17 07/04/21 History (For Pump)] Amitriptyline HCl [Elavil] 50 mg PO HS 06/17/21 07/04/21 History Atorvastatin [Lipitor] 20 mg PO DAILY tab 06/20/21 07/04/21 Rx hydroCHLOROthiazide [Hydrodiuril] 25 mg PO DAILY #1 tab 07/05/21 Rx Allergies Allergy/AdvReac Type Severity Reaction Status Date / Time cephalexin [From Keflex] Allergy Swelling Verified 07/04/21 13:01 (tongue) Physical Exam Vitals: Vital Signs Temp Pulse Pulse Resp BP BP BP 07/05/21 07:00 97.8 F 109 H 18 127/84 07/05/21 02:00 98.1 F 116 H 20 122/88 07/05/21 01:45 97.7 F 109 H 18 109/64 07/04/21 19:45 109 H 18 147/88 07/04/21 16:12 115 H 18 123/86 07/04/21 12:02 98.1 F 110 H 18 98/69 Pulse Ox 07/05/21 07:00 97 07/05/21 02:00 100 07/05/21 01:45 97 07/04/21 19:45 100 07/04/21 16:12 99 07/04/21 12:02 100 Intake and Output 07/04/21 07/05/2107/05/22 22:59 06:59 14:59 Other: # Voids 1 Weight 87.543 kg - Constitutional General appearance: average body habitus, cooperative, no acute distress - EENT Eyes: EOMI, PERRLA - Neck Neck: normal ROM - Respiratory Respiratory: bilateral: CTA - Cardiovascular Heart rate: 110 Rhythm: regular foot Peripheral Edema: bilateral: Trace radial pulse Peripheral Pulses: bilateral: Normal - Gastrointestinal General gastrointestinal: normal bowel sounds, soft - Integumentary Integumentary: normal - Neurologic Neurologic: CNII-XII intact - Musculoskeletal Musculoskeletal: gait normal - Psychiatric Psychiatric: A&O x's 3 Results CBC & Chem 7: 07/05/21 08:31 07/05/21 08:31 Labs: Abnormal Lab Results - Last 24 Hours (Table) 07/04/21 07/04/21 07/04/21 Range/Units 13:25 14:14 19:45 VBG HCO3 23 L (24-28) mmol/L Sodium 133 L (137-145) mmol/L Potassium 5.2 H (3.5-5.1) mmol/L Chloride (98-107) mmol/L Carbon Dioxide (22-30) mmol/L BUN 35 H (7-17) mg/dL Glucose 174 H (74-99) mg/dL POC Glucose (mg/dL) (75-99) mg/dL AST (14-36) U/L ALT 62 H (4-34) U/L Alkaline Phosphatase 131 H (38-126) U/L Total Protein (6.3-8.2) g/dL Albumin 3.4 L (3.5-5.0) g/dL Urine Appearance Cloudy H (Clear) Urine Protein 2+ H (Negative) Urine Glucose (UA) 1+ H (Negative) Ur Leukocyte Esterase Large H (Negative) Urine WBC 29 H (0-5) /hpf Urine Bacteria Many H (None) /hpf Hyaline Casts 9 H (0-2) /lpf Urine Mucus Occasional H (None) /hpf Urine Yeast (Budding) Few H (None) /hpf 07/05/21 07/05/21 07/05/21 Range/Units 02:34 06:42 08:31 VBG HCO3 (24-28) mmol/L Sodium 135 L (137-145) mmol/L Potassium (3.5-5.1) mmol/L Chloride 110 H (98-107) mmol/L Carbon Dioxide 20 L (22-30) mmol/L BUN 29 H (7-17) mg/dL Glucose 269 H (74-99) mg/dL POC Glucose (mg/dL) 181 H 241 H (75-99) mg/dL AST 109 H (14-36) U/L ALT 85 H (4-34) U/L Alkaline Phosphatase (38-126) U/L Total Protein 5.9 L (6.3-8.2) g/dL Albumin 2.9 L (3.5-5.0) g/dL Urine Appearance (Clear) Urine Protein (Negative) Urine Glucose (UA) (Negative) Ur Leukocyte Esterase (Negative) Urine WBC (0-5) /hpf Urine Bacteria (None) /hpf Hyaline Casts (0-2) /lpf Urine Mucus (None) /hpf Urine Yeast (Budding) (None) /hpf 07/05/21 Range/Units 11:31 VBG HCO3 (24-28) mmol/L Sodium (137-145) mmol/L Potassium (3.5-5.1) mmol/L Chloride (98-107) mmol/L Carbon Dioxide (22-30) mmol/L BUN (7-17) mg/dL Glucose (74-99) mg/dL POC Glucose (mg/dL) 254 H (75-99) mg/dL AST (14-36) U/L ALT (4-34) U/L Alkaline Phosphatase (38-126) U/L Total Protein (6.3-8.2) g/dL Albumin (3.5-5.0) g/dL Urine Appearance (Clear) Urine Protein (Negative) Urine Glucose (UA) (Negative) Ur Leukocyte Esterase (Negative) Urine WBC (0-5) /hpf Urine Bacteria (None) /hpf Hyaline Casts (0-2) /lpf Urine Mucus (None) /hpf Urine Yeast (Budding) (None) /hpf Microbiology - Last 24 Hours (Table) 07/04/21 19:45 Urine Culture - Preliminary Urine,Clean Catch Chest x-ray: report reviewed Thrombosis Risk Factor Assmnt - DVT/VTE Prophylaxis DVT/VTE Prophylaxis: Low risk, early ambulation encouraged - Choose All That Apply Any of the Below Risk Factors Present?: Yes Each Factor Represents 1 point: Obesity (BMI >25) Thrombosis Risk Factor Assessment Total Risk Factor Score: 1 Thrombosis Risk Factor Assessment Level: Low Risk Assessment and Plan Assessment: Palpitations sinus tachycardia Orthostatic hypotension, secondary to dehydration Dehydration from diuretic use Type 1 Diabetes Diabetic kidney disease Plan: Palpitations and tachycardia improved with fluid administration Cardiology recommended Echo, awaiting results, continue holding losartan and hydrochlorothiazide Will repeat lab work today to reassess kidney function Awaiting nephrology recommendations Further recommendations to come based on patient's clinical course Time with Patient: Greater than 30 (I Mohit Curran attest that I spent greater th an 20 minutes caring for and examining the patient)
--- NOTE | 2021-07-05 12:49 | CONS ---
CONSULTATION REASON FOR CONSULTATION: Underlying diabetic kidney disease. HISTORY OF PRESENT ILLNESS: Patient is a 30-year-old female who was admitted to the hospital with complaints of feeling increased weakness and dizziness, particularly on standing and walking. Patient's heart rate was also elevated up to 115 beats per minute. She was recently diagnosed with biopsy-proven diabetic kidney disease. Biopsy was done due to significant proteinuria. Her biopsy was performed at [facility]. Her 24-hour urine protein showed 1.3 grams on 06/22/2021. Patient was recently started on Cozaar and has been on hydrochlorothiazide. She has also been very strict with her fluid restriction lately. No complaints of diarrhea, nausea, vomiting or abdominal pain. Blood pressure this admission was noted to be 123 to 147; however, orthostatics done this morning were significantly positive, with standing blood pressure of only 79 mmHg. No history of fever or chills. PAST MEDICAL HISTORY: Recent diagnosis of diabetic kidney disease, post kidney biopsy done about a week to 10 days ago at [facility]. Patient has underlying type 1 diabetes. She has gastroesophageal reflux disease, history of asthma. PAST SURGICAL HISTORY: Hiatal hernia, history of wound debridement in the groin area. Possible MRSA infection. PAST SURGICAL HISTORY: , cervical ablation. MEDICATIONS: Medications prior to admission included Elavil, Cozaar, Demadex and insulin. Patient is also maintained on Lipitor. SOCIAL HISTORY: Negative for smoking, drug abuse or alcohol abuse. PHYSICAL EXAMINATION: Patient is comfortable, awake, alert, oriented x3, not in any acute distress. Blood pressure 127/84, and standing blood pressure was down to 79 mmHg systolic. Oxygen saturation is 97% on room air. Patient is afebrile. EXAMINATION OF THE HEART: S1 and S2. EXAMINATION OF LUNGS: Bilateral breath sounds are heard. ABDOMEN: Abdomen is soft, nontender. LOWER EXTREMITIES: Examination of lower extremities shows no significant edema. ENVIRONMENTAL MANAGEMENT SPECIALIST EXAM: Grossly intact. LABS: Sodium 133, potassium 5.2, chloride 104, BUN 35, creatinine 0.95. Hemoglobin 12.5 g/dL. UA shows 2+ protein, WBCs 29. ASSESSMENT: 1. Acute kidney injury, mostly prerenal, associated with hypotension, hypoperfusion with use of angiotensin receptor blockers. 2. Chronic kidney disease secondary to diabetic kidney disease with preserved GFR. Baseline creatinine about 0.8 to 0.7 mg/dL, maintained on Cozaar for the proteinuria. 3. History of significant edema, which is currently improved. 4. Volume depletion and significant orthostatic hypotension. 5. Mild hyperkalemia associated with acute kidney injury, use of angiotensin receptor blockers. PLAN: Patient is advised to hold Cozaar and diuretics for now. Down the road, she may benefit from a much lower dose of loop diuretics if she has recurring edema. In the meantime, she may need just 12.5 mg of Cozaar. This may even need to be given every other day, as her blood pressure continues to stay low. She may have a component of orthostatic hypotension from autonomic neuropathy from underlying long-term diabetes as well. These symptoms are significantly more recent, which suggests underlying hypovolemia as well. Patient is also encouraged to slightly increase her oral fluid intake for the next few days. If the patient is feeling better, she may be discharged later on today, as she is asking to go home. She is advised to follow up as outpatient with her primary transfer iron operator at [facility]. I will also give her 250 mL normal saline bolus x1. Thank you for this consultation. Will continue to follow the patient with you during her hospitalization. MMODL / IJN: [id number] /
[2021-07-05 13:59] VITALS: BP 125/88; PULSE 107; RESP 16; TEMP 99.3
--- NOTE | 2021-07-05 15:48 | P.DS ---
Providers Date of admission: 07/04/21 16:31 Expected date of discharge: 07/05/21 Attending physician: Mohit Curran Consults: 07/04/21 21:50 Consult Physician Routine Consulting Provider: Raffy Rodriguez Consult Reason/Comments: diabetic nephropathy Do you want consulting provider notified?: Yes, Notify in am Consult Physician Routine Consulting Provider: Clifford Machado Consult Reason/Comments: symptomatic tachycardia Do you want consulting provider notified?: Yes, Notify in am Primary care physician: Mohit Curran I attest that I saw and examined the patient and spent greater than 20 minutes of patient care with her Hospital Course: Patient is a very pleasant 30-year-old female that was referred to emergency room for palpitations, tachycardia and shortness of breath. Patient was recently discharged from [facility] following a kidney biopsy for proteinuria. She was started on losartan and hydrochlorothiazide on discharge. Patient returned to the office yesterday for a follow up and reported feeling palpitations, dizziness and dyspnea since she returned home. Attempted to obtain orthostatic blood pressure measurements when the patient became pale, tachycardic, d iaphoretic, and hyperventilating. She was then referred to the emergency room for evaluation. Patient has a medical history of type 1 diabetes, asthma, GERD, anxiety, and depression. Ddimer was 0.42, sodium was 133, BUN 35, creat 0.95. Patient was given IV fluids that improved symptoms. Nephrology and cardiology were consulted. Patients symptoms have improved with rehydration. Cardiology cleared her for discharge, nephrology recommended follow up with [facility] specialists. Losartan and hydrochlorothiazide will be held until follow up. Patient will also follow up with animal keeper head for diabetes management. Assessment: Palpitations, improving sinus tachycardia, improved Orthostatic hypotension, secondary to dehydration Dehydration from diuretic use, resolved Type 1 Diabetes Diabetic kidney disease Health Concerns: multiple comorbidities Pertinent Studies: Chest xray- negative Echocardiogram- negative Patient Condition at Discharge: Fair Plan - Discharge Summary Discharge Rx Participant: No New Discharge Prescriptions: New hydroCHLOROthiazide [Hydrodiuril] 25 mg PO DAILY #1 tab Continue Insulin Aspart (For Pump) [NovoLOG (For Pump)] 0.01 unit SQ-PUMP CONTINUOUS Amitriptyline HCl [Elavil] 50 mg PO HS Atorvastatin [Lipitor] 20 mg PO DAILY tab Discontinued Torsemide [Demadex] 10 mg PO DAILY Losartan [Cozaar] 25 mg PO DAILY Discharge Medication List Insulin Aspart (For Pump) [NovoLOG (For Pump)] 0.01 unit SQ-PUMP CONTINUOUS 11/08/17 [History] Amitriptyline HCl [Elavil] 50 mg PO HS 06/17/21 [History] Atorvastatin [Lipitor] 20 mg PO DAILY tab 06/20/21 [Rx] hydroCHLOROthiazide [Hydrodiuril] 25 mg PO DAILY #1 tab 07/05/21 [Rx] Follow up Appointment(s)/Referral(s): Mohit Curran MD [Primary Care Provider] - 1-2 days Sony Iraheta DO [STAFF PHYSICIAN] - 2 Weeks Josias Cason MD [REFERRING] - 1 Week Discharge Disposition: HOME SELF-CARE
[2021-07-05 16:16] LABS: Glucose,Whole Blood 324 mg/dL (75-99)
[2021-07-05] MEDS: SODIUM CHLORIDE 0.9% 1,000 ML IV SCH (18:15)
--- NOTE | 2021-07-09 13:20 | CA ---
Transthoracic Echo Report Name: Yarely Enamorado Age: 30 Gender: F : 1990 Exam Date: 07/05/2021 08:21 Exam Location: [facility] Ht (in): 68 Wt (lb): 193 Ordering Physician: Cinthya Blackburn Attending/Referring Phys: [id number], Alexey Information Systems Security Specialist Sunshine Vidal RDCS Procedure CPT: Indications: LV function Cardiac Hx: Technical Quality: Contrast 1: Total Dose (mL): Contrast 2: Total Dose (mL): MEASUREMENTS (Male / Female) Normal Values 2D ECHO LV Diastolic Diameter PLAX 3.7 cm 4.2 - 5.9 / 3.9 - 5.3 cm LV Systolic Diameter PLAX 1.9 cm IVS Diastolic Thickness 1.2 cm 0.6 - 1.0 / 0.6 - 0.9 cm LVPW Diastolic Thickness 1.6 cm 0.6 - 1.0 / 0.6 - 0.9 cm LV Relative Wall Thickness 0.8 RV Internal Dim ED PLAX 3.3 cm LA Volume 33.5 cm??? 18 - 58 / 22 - 52 cm??? M-MODE Aortic Root Diameter MM 3.0 cm LA Systolic Diameter MM 2.2 cm LA Ao Ratio MM 0.8 AV Cusp Separation MM 1.7 cm DOPPLER AV Peak Velocity 105.5 cm/s AV Peak Gradient 4.5 mmHg LVOT Peak Velocity 109.5 cm/s LVOT Peak Gradient 4.8 mmHg MV Area PHT 6.3 cm??? Mitral E Point Velocity 67.3 cm/s Mitral A Point Velocity 111.4 cm/s Mitral E to A Ratio 0.6 MV Deceleration Time 119.5 ms TR Peak Velocity 297.2 cm/s TR Peak Gradient 35.3 mmHg Right Ventricular Systolic Press 40.3 mmHg FINDINGS Left Ventricle Normal left ventricular systolic function with no obvious regional wall motion abnormalities. Left ventricular cavity size normal. Mildly increased left ventricular wall thickness. Left ventricular ejection fraction is estimated at 55-60 %. Right Ventricle Normal right ventricular size and function. Right ventricular systolic pressure within normal limits. Right Atrium Normal right atrial size. Prominent eustachian valve in the right atrium (normal variant). Left Atrium Normal left atrial size. No evidence for an atrial septal defect. Mitral Valve Structurally normal mitral valve. No mitral stenosis, regurgitation or prolapse. Aortic Valve Trileaflet aortic valve. No aortic valve stenosis or regurgitation. Tricuspid Valve Structurally normal tricuspid valve. Trace to mild tricuspid regurgitation. Pulmonic Valve Structurally normal pulmonic valve. Pericardium No pericardial effusion. Aorta Normal size aortic root and proximal ascending aorta. CONCLUSIONS Mildly increased left ventricular wall thickness. Left ventricular ejection fraction is estimated at 55-60 %. No mitral stenosis, regurgitation or prolapse. Trace to mild tricuspid regurgitation. Previewed by: Dr. Sony Iraheta DO (Electronically Signed) Final Date: 05 Jul 2021 12:47
== END 2021-07-05 18:16 | disposition home or self-care (01) ==
LOC: EC 10:39 → 6NMEDSUR 16:31
PROVIDERS: ADMIT Family Medicine; ATTEND Family Medicine
DX: R00.2 Palpitations (principal); R00.0 Tachycardia, unspecified; I95.1 Orthostatic hypotension; E86.0 Dehydration; T50.2X5A Adverse effect of carbonic-anhydrase inhibitors, benzothiadiazides and other diuretics, initial encounter; E10.22 Type 1 diabetes mellitus with diabetic chronic kidney disease; N18.9 Chronic kidney disease, unspecified; E87.5 Hyperkalemia; N17.9 Acute kidney failure, unspecified; I07.1 Rheumatic tricuspid insufficiency; K21.9 Gastro-esophageal reflux disease without esophagitis; J45.909 Unspecified asthma, uncomplicated; K44.9 Diaphragmatic hernia without obstruction or gangrene; I87.2 Venous insufficiency (chronic) (peripheral); L98.9 Disorder of the skin and subcutaneous tissue, unspecified; E66.9 Obesity, unspecified; Z68.29 Body mass index [BMI] 29.0-29.9, adult; F32.A Depression, unspecified; F41.9 Anxiety disorder, unspecified; F40.240 Claustrophobia; N04.9 Nephrotic syndrome with unspecified morphologic changes; Z79.4 Long term (current) use of insulin; Z79.899 Other long term (current) drug therapy; Z88.1 Allergy status to other antibiotic agents; Z96.41 Presence of insulin pump (external) (internal); Z87.891 Personal history of nicotine dependence; Z86.14 Personal history of Methicillin resistant Staphylococcus aureus infection; Z87.440 Personal history of urinary (tract) infections; Z83.3 Family history of diabetes mellitus; Z83.49 Family history of other endocrine, nutritional and metabolic diseases
CPT/HCPCS: 99285; 96360; 96361; 36415; 93005; 93306; 85379; 83880; 80053 ×2; 84443; 82803; 83605; 83735 ×2; 84484; 85025; 85027; 85610; 85730; 81001; 87086; 87077; 87186; 71046; G0378 ×2

== ENCOUNTER 2021-08-03 20:29 | Emergency (ER) | payer BC ==
[2021-08-03 21:44] VITALS: TEMP 97.7
[2021-08-03] MEDS ORDERED: diphenhydrAMINE 50 MG/ML 1 ML VIAL IVP STA (22:28)
[2021-08-03] MEDS ORDERED: PROCHLORPERAZINE INJ 10 MG/2 ML VIAL IVP STA (22:28)
[2021-08-03] MEDS ORDERED: MORPHINE SULFATE 4 MG/ML SYRINGE IV STA (22:28)
[2021-08-03] MEDS ORDERED: SODIUM CHLORIDE 0.9% 1,000 ML IV STA (22:28)
--- NOTE | 2021-08-03 22:29 | ED ---
Headache HPI - General Chief Complaint: Eye Problems Stated Complaint: Eye issues Time Seen by Provider: 08/03/21 21:49 Source: RN notes reviewed, old records reviewed Mode of arrival: ambulatory Limitations: no limitations - History of Present Illness Initial Comments: This is a 30-year-old female to the emergency department for evaluation. Patient presenting as a transfer from outside facility for evaluation of right eye pain as well as left eye pain, headache and right central vision loss. Patient states symptoms began around 4 PM when she went to do her makeUp. Patient's taking that her vision was normal and appropriate. Patient no trauma stroke today no other complaints or fevers. MD Complaint: "migraine", other (Eye pain with right-sided central vision loss) -: hour(s) Onset Description: sudden Location: right, frontal Severity: mild Severity scale (1-10): 2 Quality: aching Consistency: constant Improves With: nothing Worsens With: none Context: occurred at rest Associated Symptoms: vision loss (Right-sided central) - Related Data Home Medications Medication Instructions Recorded Confirmed Insulin Aspart (For Pump) [NovoLOG 0.01 unit SQ-PUMP CONTINUOUS 11/08/17 07/04/21 (For Pump)] Amitriptyline HCl [Elavil] 50 mg PO HS 06/17/21 07/04/21 Previous Rx's Medication Instructions Recorded Atorvastatin [Lipitor] 20 mg PO DAILY tab 06/20/21 hydroCHLOROthiazide [Hydrodiuril] 25 mg PO DAILY #1 tab 07/05/21 Allergies Allergy/AdvReac Type Severity Reaction Status Date / Time cephalexin [From Keflex] Allergy Swelling Verified 08/03/21 21:44 (tongue) Review of Systems ROS Statement: Those systems with pertinent positive or pertinent negative responses have been documented in the HPI. ROS Other: All systems not noted in ROS Statement are negative. Past Medical History Past Medical History: Asthma, Diabetes Mellitus, GERD/Reflux, Skin Disorder Additional Past Medical History / Comment(s): hx. hiatal hernia, wounds in groin area, buttocks-thought was ingrown hairs, diabetic kidney disease History of Any Multi-Drug Resistant Organisms: MRSA Date of last positivie culture/infection: 2009 MDRO Source:: unknown Past Surgical History: Section Additional Past Surgical History / Comment(s): cervical abblation Past Anesthesia/Blood Transfusion Reactions: No Reported Reaction, Motion Sickness Additional Past Anesthesia/Blood Transfusion Reaction / Comment(s): Pt has clausterphobia. Kidney biopsy Past Psychological History: Anxiety, Depression Smoking Status: Never smoker Past Alcohol Use History: Occasional Past Drug Use History: None Reported - Past Family History Mother Family Medical History: Thyroid Disorder Additional Family Medical History / Comment(s): gestational diabetes Father Additional Family Medical History / Comment(s): crohnes disease General Exam - General Exam Comments Initial Comments: Visual acuity is within normal limits Visual field testing is normal We are unable take patient's pressures here in the ER General appearance: alert, in no apparent distress Head exam: Present: atraumatic, normocephalic, normal inspection Eye exam: Present: normal appearance, PERRL, EOMI. Absent: scleral icterus, co njunctival injection, periorbital swelling ENT exam: Present: normal exam, mucous membranes moist Neck exam: Present: normal inspection. Absent: tenderness, meningismus, lymphadenopathy Respiratory exam: Present: normal lung sounds bilaterally. Absent: respiratory distress, wheezes, rales, rhonchi, stridor Cardiovascular Exam: Present: regular rate, normal rhythm, normal heart sounds. Absent: systolic murmur, diastolic murmur, rubs, gallop, clicks GI/Abdominal exam: Present: soft, normal bowel sounds. Absent: distended, tenderness, guarding, rebound, rigid Extremities exam: Present: normal inspection, full ROM, normal capillary refill. Absent: tenderness, pedal edema, joint swelling, calf tenderness Back exam: Present: normal inspection Neurological exam: Present: alert, oriented X3, CN II-XII intact Psychiatric exam: Present: normal affect, normal mood Skin exam: Present: warm, dry, intact, normal color. Absent: rash Course Vital Signs 08/03/21 21:38 Temperature 97.7 F Pulse Rate 99 Respiratory 18 Rate Blood Pressure 121/84 O2 Sat by Pulse 100 Oximetry - Reevaluation(s) Reevaluation #1: 08/03/21 23:13 Medical record is reviewed Transferring paperwork is reviewed Reevaluation #2: 08/04/21 01:53 Patient patient headache is improved 08/04/21 01:53 Patient's vision is relatively unchanged Reevaluation #3: 08/04/21 01:53 Patient informed of results and questions answered - Consultations Consultation #1: Spoke with Dr. Bell will see the patient in the office on Thursday Medical Decision Making - Medical Decision Making 30 female to the emergency department for evaluation. Patient has right eye vision changes of central vision loss. CT scanning is negative. Lab values is normal patient can be discharged home - Lab Data Result diagrams: 08/03/21 22:51 08/03/21 22:51 Lab Results 08/03/21 08/03/21 Range/Units 22:51 22:51 WBC 8.5 (3.8-10.6) k/uL RBC 4.23 (3.80-5.40) m/uL Hgb 12.0 (11.4-16.0) gm/dL Hct 36.2 (34.0-46.0) % MCV 85.6 (80.0-100.0) fL MCH 28.5 (25.0-35.0) pg MCHC 33.3 (31.0-37.0) g/dL RDW 12.9 (11.5-15.5) % Plt Count 279 (150-450) k/uL MPV 7.9 Neutrophils % 54 % Lymphocytes % 39 % Monocytes % 4 % Eosinophils % 1 % Basophils % 1 % Neutrophils # 4.6 (1.3-7.7) k/uL Lymphocytes # 3.3 (1.0-4.8) k/uL Monocytes # 0.4 (0-1.0) k/uL Eosinophils # 0.1 (0-0.7) k/uL Basophils # 0.1 (0-0.2) k/uL Sodium 131 L (137-145) mmol/L Potassium 4.5 (3.5-5.1) mmol/L Chloride 99 (98-107) mmol/L Carbon Dioxide 28 (22-30) mmol/L Anion Gap 4 mmol/L BUN 39 H (7-17) mg/dL Creatinine 0.76 (0.52-1.04) mg/dL Est GFR (CKD-EPI)AfAm >90 (>60 ml/min/1.73 sqM) Est GFR (CKD-EPI)NonAf >90 (>60 ml/min/1.73 sqM) Glucose 313 H (74-99) mg/dL Calcium 8.9 (8.4-10.2) mg/dL Phosphorus 3.7 (2.5-4.5) mg/dL Magnesium 2.3 (1.6-2.3) mg/dL Total Bilirubin 0.2 (0.2-1.3) mg/dL AST 24 (14-36) U/L ALT 32 (4-34) U/L Alkaline Phosphatase 118 (38-126) U/L Total Protein 6.5 (6.3-8.2) g/dL Albumin 3.4 L (3.5-5.0) g/dL - Radiology Data Radiology results: report reviewed (CT brain CT A head neck negative for acute disease), image reviewed Disposition Clinical Impression: Headache, Central loss of vision, Vitreous floaters of right eye Disposition: HOME SELF-CARE Condition: Fair Instructions (If sedation given, give patient instructions): Diabetic Retinopathy (ED), Blurred Vision (ED) Is patient prescribed a controlled substance at d/c from ED?: No Referrals: Tung Bell MD [STAFF PHYSICIAN] - 1-2 days
[2021-08-03 23:12] LABS: Basophils # (A) 0.1 k/uL (0-0.2); Basophils % (A) 1 %; Eosinophils # (A) 0.1 k/uL (0-0.7); Eosinophils % (A) 1 %; HCT 36.2 % (34.0-46.0); Lymphocytes # (A) 3.3 k/uL (1.0-4.8); Lymphocytes % (A) 39 %; MCH 28.5 pg (25.0-35.0); MCHC 33.3 g/dL (31.0-37.0); MCV 85.6 fL (80.0-100.0); Mean Platelet Volume 7.9; Monocytes # (A) 0.4 k/uL (0-1.0); Monocytes % (A) 4 %; Neutrophils # (A) 4.6 k/uL (1.3-7.7); Neutrophils % (A) 54 %; Platelet Count 279 k/uL (150-450); RBC 4.23 m/uL (3.80-5.40); RDW 12.9 % (11.5-15.5); WBC 8.5 k/uL (3.8-10.6)
[2021-08-04 00:13] LABS: ALT 32 U/L (4-34); AST 24 U/L (14-36); African American GFR (CKD) >90 (>60 ml/min/1.73 sqM); Albumin 3.4 g/dL (3.5-5.0); Alkaline Phosphatase 118 U/L (38-126); Anion Gap 4 mmol/L; Blood Urea Nitrogen 39 mg/dL (7-17); Calcium 8.9 mg/dL (8.4-10.2); Carbon Dioxide 28 mmol/L (22-30); Chloride 99 mmol/L (98-107); Glucose 313 mg/dL (74-99); Magnesium 2.3 mg/dL (1.6-2.3); Non-African American GFR(CKD) >90 (>60 ml/min/1.73 sqM); Phosphorus 3.7 mg/dL (2.5-4.5); Potassium 4.5 mmol/L (3.5-5.1); Sodium 131 mmol/L (137-145); Total Bilirubin 0.2 mg/dL (0.2-1.3); Total Protein 6.5 g/dL (6.3-8.2)
--- NOTE | 2021-08-04 01:11 | CT ---
EXAMINATION TYPE: CT brain wo con DATE OF EXAM: 08/04/2021 COMPARISON: 12/14/2020 HISTORY: ams CT DLP: mGycm Automated exposure control for dose reduction was used. Ventricles and sulci appear normal. There is no mass effect or midline shift. No sign of intracranial hemorrhage. The calvarium is intact. No evidence of cerebral edema. IMPRESSION: Negative unenhanced head CT scan
--- NOTE | 2021-08-04 01:21 | CT ---
EXAMINATION TYPE: CT angio head neck DATE OF EXAM: 08/04/2021 COMPARISON: None HISTORY: ams CT DLP: 725.55 mGycm Automated exposure control for dose reduction was used. CONTRAST: Performed with IV Contrast, patient injected with 65 mL of Isovue 370. Images obtained from the great vessels to the vertex of the brain with contrast. There are Three-D po stprocessed images. There is normal branching pattern of the great vessels. There is arterial flow in both subclavian art eries. There is arterial flow in the common internal and external carotid arteries bilaterally. There is arterial flow in both vertebral arteries. No evidence of carotid or vertebral artery aneurysm or dissection. There is minimal calcification on the posterior aspect of the carotid artery bifurcations without significant luminal narrowing. There is arterial flow in the vertebral basilar artery system . There is arterial flow in the anterior middle and posterior cerebral arteries bilaterally. No evidenc e of intracranial aneurysm or neovascularity. No mass effect. There is normal enhancement of the veno us sinuses. No evidence of hemodynamic stenosis. IMPRESSION: Negative CT angiogram of the neck. Negative CT angiogram of the brain.
[2021-08-04 02:14] VITALS: BP 107/75; PULSE 94; RESP 16
== END 2021-08-04 02:14 | disposition home or self-care (01) ==
LOC: EC 20:29
DX: H43.391 Other vitreous opacities, right eye (principal); H54.7 Unspecified visual loss; R51.9 Headache, unspecified; E11.9 Type 2 diabetes mellitus without complications; J45.909 Unspecified asthma, uncomplicated; K21.9 Gastro-esophageal reflux disease without esophagitis; F32.A Depression, unspecified; F41.9 Anxiety disorder, unspecified; Z79.4 Long term (current) use of insulin; Z79.899 Other long term (current) drug therapy
CPT/HCPCS: 36415; 80053; 83735; 84100; 85025; 70496; 70450; 70498; 99284; 96374; 96375 ×2; 96361; J2270; J1200; J0780; Q9967

== ENCOUNTER → 2021-12-24 | Outpatient (CLI) | payer SELFPAY | END | disposition home or self-care (01) | LOC: LABWHC1 11:39 | PROVIDERS: ATTEND Family Medicine | DX: Z83.49 Family history of other endocrine, nutritional and metabolic diseases (principal) | CPT/HCPCS: 36415 ==

== ENCOUNTER 2022-04-17 11:26 | Observation (INO) | payer BC ==
--- NOTE | 2022-04-17 11:51 | ED ---
General Adult HPI - General Chief complaint: Recheck/Abnormal Lab/Rx Stated complaint: High BP Time Seen by Provider: 04/17/22 11:36 Source: patient, RN notes reviewed Mode of arrival: ambulatory Limitations: no limitations - History of Present Illness Initial comments: Patient is a pleasant 31-year-old female presenting to the emergency department with concerns for high blood pressure. Patient does have history of high blood pressure. Patient was placed on was Cipro however her blood pressure was going too low. Patient was then started on spironolactone. Patient states she does have some protein loss through her urine. Patient took blood pressure at home lying down was 150 over upper 90s. Standing up was 160/113. Patient did get in touch with her call center trainer who recommended she go to emergency department. Patient has a previous component of kidney problems with hypertension however was here recently without this problem. Patient plaints of some nausea and lightheadedness. - Related Data Home Medications Medication Instructions Recorded Confirmed Insulin Aspart (For Pump) [NovoLOG 0.01 unit SQ-PUMP CONTINUOUS MDD 11/08/17 04/17/22 (For Pump)] 50-70 UNITS Atorvastatin [Lipitor] 10 mg PO HS 04/15/22 04/17/22 Cyclobenzaprine [Flexeril] 10 mg PO HS 04/15/22 04/17/22 Ferrous Sulfate [Feosol] 325 mg PO BID 04/15/22 04/17/22 Insulin Glargine,Hum.rec.anlog 20 unit SQ DAILY PRN 04/15/22 04/17/22 [Basaglar Kwikpen U-100] Spironolactone [Aldactone] 12.5 mg PO DAILY 04/15/22 04/17/22 Allergies Allergy/AdvReac Type Severity Reaction Status Date / Time cephalexin [From Keflex] Allergy Swelling Verified 04/17/22 11:46 (tongue) Review of Systems ROS Statement: Those systems with pertinent positive or pertinent negative responses have been documented in the HPI. ROS Other: All systems not noted in ROS Statement are negative. Constitutional: Denies: fever Eyes: Denies: eye pain ENT: Denies: ear pain Respiratory: Denies: cough Cardiovascular: Denies: chest pain Endocrine: Denies: fatigue Gastrointestinal: Reports: nausea. Denies: abdominal pain Genitourinary: Denies: urgency Musculoskeletal: Denies: back pain Skin: Denies: rash Neurological: Denies: weakness Past Medical History Past Medical History: Asthma, Diabetes Mellitus, GERD/Reflux, Renal Disease, Skin Disorder Additional Past Medical History / Comment(s): hx. hiatal hernia, wounds in groin area, buttocks-thought was ingrown hairs, diabetic kidney disease History of Any Multi-Drug Resistant Organisms: MRSA Date of last positivie culture/infection: 2009 MDRO Source:: unknown Past Surgical History: Section Additional Past Surgical History / Comment(s): cervical abblation Past Anesthesia/Blood Transfusion Reactions: No Reported Reaction, Motion Sickness Additional Past Anesthesia/Blood Transfusion Reaction / Comment(s): Pt has clausterphobia. Kidney biopsy Past Psychological History: Anxiety, Depression Smoking Status: Never smoker Past Alcohol Use History: Occasional Past Drug Use History: None Reported - Past Family History Mother Family Medical History: Thyroid Disorder Additional Family Medical History / Comment(s): gestational diabetes Father Additional Family Medical History / Comment(s): crohnes disease General Exam Limitations: no limitations General appearance: alert, in no apparent distress Head exam: Present: normocephalic Eye exam: Present: normal appearance, PERRL, EOMI Neck exam: Present: normal inspection Respiratory exam: Present: normal lung sounds bilaterally Cardiovascular Exam: Present: regular rate, normal rhythm GI/Abdominal exam: Present: soft. Absent: tenderness Extremities exam: Present: normal inspection Neurological exam: Present: alert, oriented X3, CN II-XII intact. Absent: motor sensory deficit Expanded Neurological exam: Present: protecting the airway Speech: Present: fluid speech Cranial nerves: EOM's Intact: Normal Motor strength exam: RUE: 5, LUE: 5, RLE: 5, LLE: 5 Eye Response: (4) open spontaneously Motor Response: (6) obeys commands Verbal Response: (5) oriented Psychiatric exam: Present: normal affect, normal mood Skin exam: Present: normal color Course Vital Signs 04/17/22 04/17/22 04/17/22 11:28 12:03 12:14 Temperature 98 F Pulse Rate 103 H 100 Pulse Rate [ 98 Cash Posting Clerk ] Respiratory 18 18 Rate Blood Pressure 159/96 173/108 O2 Sat by Pulse 99 99 Oximetry 04/17/22 04/17/22 04/17/22 13:00 13:45 14:15 Temperature Pulse Rate 103 H 102 H 104 H Pulse Rate [ Cash Posting Clerk ] Respiratory 18 18 18 Rate Blood Pressure 159/102 160/100 158/103 O2 Sat by Pulse 100 99 Oximetry EKG Findings - EKG Results: EKG: interpreted by VIOLETTAD, sinus rhythm, normal axis, normal QRS, normal ST/T Medical Decision Making - Medical Decision Making Was pt. sent in by a medical professional or institution (, [facility], [facility], urgent care, hospital, or [facility]...) When possible be specific @ -Patient spoke with her call center trainer who recommended she come to the hospital Did you speak to anyone other than the patient for history (EMS, parent, family, police, friend...)? What history was obtained from this source @ -Mother is present and helps provide history and blood pressure Did you review nursing and triage notes (agree or disagree)? Why? @ -I reviewed and agree with nursing and triage notes Were old charts reviewed (outside hosp., previous admission, EMS record, old EKG, old radiological studies, urgent care reports/EKG's, [facility] records)? Report findings @ -No old charts were reviewed Differential Diagnosis (chest pain, altered mental status, abdominal pain women, abdominal pain men, vaginal bleeding, weakness, fever, dyspnea, syncope, headache, dizziness, GI bleed, back pain, seizure, CVA, palpatations, mental health)? @ -not applicable EKG interpreted by me (3pts min.). @ -As above X-rays interpreted by me (1pt min.). @ -Is x-ray shows no acute process CT interpreted by me (1pt min.). @ -None done U/S interpreted by me (1pt. min.). @ -None done What testing was considered but not performed or refused? (CT, X-rays, U/S, labs)? Why? @ -None What meds were considered but not given or refused? Why? @ -None Did you discuss the management of the patient with other professionals (professionals i.e. [facility], [facility], lab, RT, psych nurse, social work specialist, finding fastener, teacher, financial aids officer, returned case inspector)? Give summary @ -Case was discussed with practitioner Charlotte, who will admit covering Dr. Curran Was smoking cessation discussed for >3mins.? @ -No Was critical care preformed (if so, how long)? @ -No Were there social determinants of health that impacted care today? How? (Homeles sness, low income, unemployed, alcoholism, drug addiction, transportation, low edu. Level, literacy, decrease access to med. care, fdc, rehab)? @ -No Was there de-escalation of care discussed even if they declined (Discuss DNR or withdrawal of care, Hospice)? DNR status @ -No What co-morbidities impacted this encounter? (DM, HTN, Smoking, COPD, CAD, Cancer, CVA, ARF, Chemo, Hep., AIDS, mental health diagnosis, sleep apnea, morbid obesity)? @ -None Was patient admitted / discharged? Hospital course, mention meds given and route, prescriptions, significant lab abnormalities, going to OR and other pertinent info. @ -Patient still hypersensitive despite several medications. Patient will be admitted with cardiology consult Undiagnosed new problem with uncertain prognosis? @ -No Drug Therapy requiring intensive monitoring for toxicity (Heparin, Nitro, Insulin, Cardizem)? @ -No Were any procedures done? @ -No Diagnosis/symptom? @ -. Hypertensive urgency Acute, or Chronic, or Acute on Chronic? @ -Acute on chronic Uncomplicated (without systemic symptoms) or Complicated (systemic symptoms)? @ -default Side effects of treatment? @ -No Exacerbation, Progression, or Severe Exacerbation? @ -No Poses a threat to life or bodily function? How? (Chest pain, USA, PA, pneumonia, PE, COPD, DKA, ARF, appy, cholecystitis, CVA, Diverticulitis, Homicidal, Suicidal, threat to staff... and all critical care pts) @ -No - Lab Data Result diagrams: 04/17/22 12:16 04/17/22 12:16 Lab Results 04/17/22 04/17/22 Range/Units 12:16 12:16 WBC 7.0 (3.8-10.6) k/uL RBC 3.61 L (3.80-5.40) m/uL Hgb 10.3 L (11.4-16.0) gm/dL Hct 30.9 L (34.0-46.0) % MCV 85.6 (80.0-100.0) fL MCH 28.6 (25.0-35.0) pg MCHC 33.4 (31.0-37.0) g/dL RDW 13.8 (11.5-15.5) % Plt Count 208 (150-450) k/uL MPV 7.8 Neutrophils % 63 % Lymphocytes % 30 % Monocytes % 4 % Eosinophils % 1 % Basophils % 0 % Neutrophils # 4.4 (1.3-7.7) k/uL Lymphocytes # 2.1 (1.0-4.8) k/uL Monocytes # 0.3 (0-1.0) k/uL Eosinophils # 0.1 (0-0.7) k/uL Basophils # 0.0 (0-0.2) k/uL Sodium 136 L (137-145) mmol/L Potassium 4.8 (3.5-5.1) mmol/L Chloride 113 H (98-107) mmol/L Carbon Dioxide 22 (22-30) mmol/L Anion Gap 1 mmol/L BUN 31 H (7-17) mg/dL Creatinine 0.82 (0.52-1.04) mg/dL Est GFR (CKD-EPI)AfAm >90 (>60 ml/min/1.73 sqM) Est GFR (CKD-EPI)NonAf >90 (>60 ml/min/1.73 sqM) Glucose 142 H (74-99) mg/dL Calcium 8.1 L (8.4-10.2) mg/dL Total Bilirubin 0.4 (0.2-1.3) mg/dL AST 82 H (14-36) U/L ALT 130 H (4-34) U/L Alkaline Phosphatase 114 (38-126) U/L Total Protein 5.1 L (6.3-8.2) g/dL Albumin 2.5 L (3.5-5.0) g/dL Disposition Clinical Impression: Hypertensive urgency Disposition: ADMITTED IP TO THIS HOSP Is patient prescribed a controlled substance at d/c from ED?: No Referrals: Mohit Curran MD [Primary Care Provider] - 1-2 days Time of Disposition: 14:31
[2022-04-17] MEDS ORDERED: DILTIAZEM CD 120 MG CAP.ER.24H PO STA (11:53)
[2022-04-17] MEDS ORDERED: ONDANSETRON 4 MG/2 ML VIAL IVP STA (12:18)
[2022-04-17 12:44] LABS: Basophils % (A) 0 %; Eosinophils # (A) 0.1 k/uL (0-0.7); Eosinophils % (A) 1 %; HCT 30.9 % (34.0-46.0); HGB 10.3 gm/dL (11.4-16.0); Lymphocytes # (A) 2.1 k/uL (1.0-4.8); Lymphocytes % (A) 30 %; MCH 28.6 pg (25.0-35.0); MCHC 33.4 g/dL (31.0-37.0); MCV 85.6 fL (80.0-100.0); Mean Platelet Volume 7.8; Monocytes # (A) 0.3 k/uL (0-1.0); Monocytes % (A) 4 %; Neutrophils # (A) 4.4 k/uL (1.3-7.7); Neutrophils % (A) 63 %; Platelet Count 208 k/uL (150-450); RBC 3.61 m/uL (3.80-5.40); RDW 13.8 % (11.5-15.5)
--- NOTE | 2022-04-17 12:55 | XR ---
EXAMINATION TYPE: XR chest 2V DATE OF EXAM: 04/17/2022 COMPARISON: 07/04/2021 HISTORY: 31 year-old female hypertension TECHNIQUE: PA and lateral views FINDINGS: Heart normal size. Aorta and pulmonary vasculature within normal limits. No consolidation or pleural effusion. IMPRESSION: No acute cardiopulmonary process.
[2022-04-17 13:03] LABS: ALT 130 U/L (4-34); AST 82 U/L (14-36); African American GFR (CKD) >90 (>60 ml/min/1.73 sqM); Albumin 2.5 g/dL (3.5-5.0); Alkaline Phosphatase 114 U/L (38-126); Anion Gap 1 mmol/L; Blood Urea Nitrogen 31 mg/dL (7-17); Calcium 8.1 mg/dL (8.4-10.2); Carbon Dioxide 22 mmol/L (22-30); Chloride 113 mmol/L (98-107); Glucose 142 mg/dL (74-99); Non-African American GFR(CKD) >90 (>60 ml/min/1.73 sqM); Potassium 4.8 mmol/L (3.5-5.1); Sodium 136 mmol/L (137-145); Total Bilirubin 0.4 mg/dL (0.2-1.3); Total Protein 5.1 g/dL (6.3-8.2)
[2022-04-17] MEDS ORDERED: hydrALAZINE HCL 20 MG/ML 1 ML VIAL IVP STA (13:33)
[2022-04-17] MEDS ORDERED: NALOXONE 0.4 MG/ML 1 ML VIAL IV PRN (14:32)
[2022-04-17] MEDS ORDERED: hydrALAZINE HCL 20 MG/ML 1 ML VIAL IVP PRN (14:32)
[2022-04-17 14:42] LABS: Appearance,Urine Clear (Clear); Bacteria,Urine Rare /hpf; Bilirubin,Urine Negative (Negative); Blood,Urine Moderate (Negative); Color,Urine Yellow; Glucose,Urine (UA) 1+ (Negative); Hyaline Casts,Urine 3 /lpf (0-2); Ketones,Urine Negative (Negative); Leukocyte Esterase,Urine Negative (Negative); Mucus,Urine Rare /hpf; Nitrite,Urine Negative (Negative); Protein,Urine 3+ (Negative); RBC,Urine 9 /hpf (0-5); Specific Gravity,Urine 1.016 (1.001-1.035); Squamous Epithelial Cell,Urine 3 /hpf (0-4); Urobilinogen,Urine <2.0 mg/dL (<2.0); WBC,Urine 3 /hpf (0-5)
[2022-04-17] MEDS ORDERED: SODIUM CHLORIDE 0.9% 1,000 ML IV SCH (14:45)
[2022-04-17] MEDS ORDERED: ACETAMINOPHEN TAB 500 MG TAB PO PRN (16:55)
[2022-04-17] MEDS ORDERED: METOPROLOL TARTRATE 12.5 MG TAB PO STA (16:56)
[2022-04-17] MEDS: ONDANSETRON 4 MG/2 ML VIAL IVP PRN (17:48)
[2022-04-17 20:22] LABS: Glucose,Whole Blood 151 mg/dL (70-110)
[2022-04-17] MEDS ORDERED: NAPROXEN 250 MG TAB PO STA (21:49)
[2022-04-17] MEDS: CYCLOBENZAPRINE 10 MG TAB PO SCH (22:06)
[2022-04-17] MEDS: HEPARIN SODIUM,PORCINE/PF 5,000 UNIT/0.5 ML SYRINGE SQ SCH (22:06)
[2022-04-17] MEDS: diphenhydrAMINE 25 MG CAP PO PRN (22:06)
[2022-04-17] MEDS: ATORVASTATIN 10 MG TAB PO SCH (22:06)
[2022-04-17] MEDS: FAMOTIDINE 20 MG/2 ML VIAL IV SCH (22:07)
[2022-04-17] MEDS: FERROUS SULFATE 325 MG TAB PO SCH (22:07)
[2022-04-17] MEDS ORDERED: BUTALB/APAP/CAFF 50-325-40MG TAB PO PRN (23:50)
[2022-04-17] MEDS ORDERED: hydrALAZINE HCL 10 MG TAB PO ONE (23:52)
[2022-04-17 23:53] LABS: Glucose,Whole Blood 162 mg/dL (70-110)
[2022-04-18] MEDS: Insulin Aspart (For Pump) 100 UNIT/ML VIAL SQ-PUMP SCH ×2 (00:02→20:02)
[2022-04-18] MEDS: INSPUCOR MISCELLANE PRN ×2 (00:15→12:54)
--- NOTE | 2022-04-18 00:40 | P.HPIM ---
History of Present Illness H&P Date: 04/17/22 Chief Complaint: High blood pressure Patient is a 31-year-old female with a known history of diabetes type 1 on insulin pump, nephrotic syndrome, diabetic nephropathy, asthma, anxiety/depression presents to ER due to concern for high blood pressure. Patient is currently on spironolactone. Patient states that she was tried on multiple blood pressure medications to control blood pressure. Follows with her toe puncher at [facility]. Patient took her blood pressure at home and SBP found to be in 160s. Patient did get in touch with her toe puncher and recommended to go to the emergency department. She was complaining of nausea and unable to tolerate oral diet. Also complains of headache. Patient was previously lisinopril was stopped due to hypotension. Later changed to low-dose torsemide which made her nauseated and currently on spironolactone 12.5 mg daily at home. Patient states that she is also having nausea and GERD symptoms and unable to tolerate oral diet for the past 1 week. blood pressure was 173/108 in the ER. She was given a dose of IV hydralazine, Cardizem 120 mg in the ER. She was also tachycardic with heart rate went up to 116. EKG showed sinus rhythm Chest x-ray showed no acute cardiopulmonary process Laboratory data showed WBC 7.0 hemoglobin 10.3 and platelets 208 Sodium 136 potassium 4.8 chloride 103 bicarb is 22 BUN 31 and creatinine 0.82 and blood sugar is 132. Calcium 8.1 AST 82 and ALT 130 alk phos 114 and albumin 2.5 Urinalysis showed 3+ protein 1+ glucose and moderate leukocyte esterase negative. Review of Systems Constitutional: Patient denies any fever or chills . no Generalized weakness. Abdomen: Patient has complaints of nausea and episodes of vomiting. No abdominal pain.no diarrhea. Cardiovascular: Patient denies any chest pain or short of breath no palpitations. Respiratory: patient denied any cough . no sputum production. No shortness of breath Neurologic: Patient denied any numbness or tingling sensation. Complains of headache. Musculoskeletal: Patient denies any complaints of joint swelling or deformity. Skin: Negative Psychiatric: Anxious Endocrine: No heat or cold intolerance. No recent weight gain. Genitourinary: No dysuria or hematuria. All other 14 point ROS negative except the above Past Medical History Past Medical History: Asthma, Diabetes Mellitus, GERD/Reflux, Renal Disease, Skin Disorder Additional Past Medical History / Comment(s): hx. hiatal hernia, wounds in groin area, buttocks-thought was ingrown hairs, diabetic kidney disease History of Any Multi-Drug Resistant Organisms: MRSA Date of last positivie culture/infection: 2009 MDRO Source:: unknown Past Surgical History: Section Additional Past Surgical History / Comment(s): cervical abblation Past Anesthesia/Blood Transfusion Reactions: No Reported Reaction, Motion Sickness Additional Past Anesthesia/Blood Transfusion Reaction / Comment(s): Pt has clausterphobia. Kidney biopsy Past Psychological History: Anxiety, Depression Smoking Status: Never smoker Past Alcohol Use History: Occasional Past Drug Use History: None Reported - Past Family History Mother Family Medical History: Thyroid Disorder Additional Family Medical History / Comment(s): gestational diabetes Father Additional Family Medical History / Comment(s): crohnes disease Medications and Allergies Home Medications Medication Instructions Recorded Confirmed Type Insulin Aspart (For Pump) [NovoLOG 0.01 unit SQ-PUMP CONTINUOUS MDD 11/08/17 04/17/22 History (For Pump)] 50-70 UNITS Atorvastatin [Lipitor] 10 mg PO HS 04/15/22 04/17/22 History Cyclobenzaprine [Flexeril] 10 mg PO HS 04/15/22 04/17/22 History Ferrous Sulfate [Feosol] 325 mg PO BID 04/15/22 04/17/22 History Insulin Glargine,Hum.rec.anlog 20 unit SQ DAILY PRN 04/15/22 04/17/22 History [Nicaaglmarty Wilkerson U-100] Spironolactone [Aldactone] 12.5 mg PO DAILY 04/15/22 04/17/22 History Cholecalciferol [Vitamin D3 (25 25 mcg PO DAILY #30 tab 04/18/22 Rx Mcg = 1000 Iu)] Famotidine [Pepcid] 20 mg PO BID #28 tablet 04/18/22 Rx Metoprolol Tartrate [Lopressor] 12.5 mg PO BID 30 Days #60 tablet 04/18/22 Rx Ondansetron Odt [Zofran Odt] 4 mg PO Q8HR PRN 3 Days #9 tab 04/18/22 Rx Allergies Allergy/AdvReac Type Severity Reaction Status Date / Time cephalexin [From Keflex] Allergy Swelling Verified 04/17/22 11:46 (tongue) Physical Exam Vitals: Vital Signs Temp Pulse Pulse Resp BP Pulse Ox 04/17/22 14:15 104 H 18 158/103 99 04/17/22 13:45 102 H 18 160/100 04/17/22 13:00 103 H 18 159/102 100 04/17/22 12:14 100 18 173/108 99 04/17/22 12:03 98 04/17/22 11:28 98 F 103 H 18 159/96 99 Intake and Output 04/17/22 04/17/22 04/17/22 06:59 14:59 22:59 Other: Weight 97.522 kg PHYSICAL EXAMINATION: Patient is lying in the bed comfortably, no acute distress, awake alert and oriented.. HEENT: Normocephalic. Neck is supple. Pupils reactive. Nostrils clear. Oral cavity is moist. Neck reveals no JVD, carotid bruits, or thyromegaly. CHEST EXAMINATION: Trachea is central. Symmetrical expansion. Lung hall clear to auscultation and percussion. CARDIAC: Normal S1, S2 with no gallops. No murmurs ABDOMEN: Soft. Bowel sounds present. Nontender. No organomegaly. No abdominal bruits. Extremities: reveal 2+ edema. No clubbing or cyanosis Neurologically awake, alert, oriented x3 with well-coordinated movements. No focal deficits noted Skin: No rash or skin lesions. Psychiatric: Coperative. Nonsuicidal, anxious. Musculoskeletal: No joint swelling or deformity. Normal range of motion. Results CBC & Chem 7: 04/18/22 06:09 04/19/22 09:07 Labs: Abnormal Lab Results - Last 24 Hours (Table) 04/17/22 04/17/22 04/17/22 Range/Units 12:16 12:16 14:20 RBC 3.61 L (3.80-5.40) m/uL Hgb 10.3 L (11.4-16.0) gm/dL Hct 30.9 L (34.0-46.0) % Sodium 136 L (137-145) mmol/L Chloride 113 H (98-107) mmol/L BUN 31 H (7-17) mg/dL Glucose 142 H (74-99) mg/dL Calcium 8.1 L (8.4-10.2) mg/dL AST 82 H (14-36) U/L ALT 130 H (4-34) U/L Total Protein 5.1 L (6.3-8.2) g/dL Albumin 2.5 L (3.5-5.0) g/dL Urine Protein 3+ H (Negative) Urine Glucose (UA) 1+ H (Negative) Urine Blood Moderate H (Negative) Urine RBC 9 H (0-5) /hpf Urine Bacteria Rare H (None) /hpf Hyaline Casts 3 H (0-2) /lpf Urine Mucus Rare H (None) /hpf Thrombosis Risk Factor Assmnt - DVT/VTE Prophylaxis DVT/VTE Prophylaxis: Pharmacologic Prophylaxis ordered Assessment and Plan Assessment: Hypertensive urgency on admission/uncontrolled hypertension Nephrotic syndrome due to diabetic nephropathy s/p renal biopsy at [facility] Diabetes type 1 insulin pump Bilateral lower extremity edema Hypoalbuminemia DVT prophylaxis with heparin subcu Plan: Patient will be continued symptomatic management for nausea and vomiting. Tyle nol as needed for headache. Continue with Pepcid 20 mg IV twice daily. Was given a dose of hydralazine and Cardizem in the ER. Continue with telemetry monitoring. Will be started on metoprolol and continue with spironolactone as per home regimen. Cardiology and nephrology will be consulted. Continue to follow closely. Discussed with the patient and her family member at bedside in detail. Time with Patient: Greater than 30
[2022-04-18] MEDS ORDERED: INSULIN PUMP BASAL RATES 1 EACH MISC MISCELLANE PRN (01:23)
[2022-04-18] MEDS ORDERED: INSULIN ASPART (NovoLOG) 100 UNIT/ML VIAL SQ PRN (01:23)
[2022-04-18 02:58] LABS: Glucose,Whole Blood 143 mg/dL (70-110)
[2022-04-18 06:21] LABS: Glucose,Whole Blood 94 mg/dL (70-110)
[2022-04-18 06:56] LABS: Basophils % (A) 1 %; Eosinophils # (A) 0.1 k/uL (0-0.7); Eosinophils % (A) 1 %; HCT 31.1 % (34.0-46.0); HGB 10.3 gm/dL (11.4-16.0); Lymphocytes % (A) 40 %; MCH 28.8 pg (25.0-35.0); MCHC 33.1 g/dL (31.0-37.0); MCV 87.1 fL (80.0-100.0); Mean Platelet Volume 7.6; Monocytes # (A) 0.3 k/uL (0-1.0); Monocytes % (A) 5 %; Neutrophils # (A) 2.6 k/uL (1.3-7.7); Neutrophils % (A) 52 %; Platelet Count 215 k/uL (150-450); RBC 3.57 m/uL (3.80-5.40); RDW 13.5 % (11.5-15.5); WBC 5.1 k/uL (3.8-10.6)
[2022-04-18 07:09] LABS: ALT 91 U/L (4-34); AST 48 U/L (14-36); African American GFR (CKD) >90 (>60 ml/min/1.73 sqM); Albumin 2.1 g/dL (3.5-5.0); Alkaline Phosphatase 100 U/L (38-126); Anion Gap 2 mmol/L; Blood Urea Nitrogen 24 mg/dL (7-17); Calcium 7.8 mg/dL (8.4-10.2); Carbon Dioxide 23 mmol/L (22-30); Chloride 110 mmol/L (98-107); Glucose 93 mg/dL (74-99); Non-African American GFR(CKD) >90 (>60 ml/min/1.73 sqM); Potassium 4.4 mmol/L (3.5-5.1); Sodium 135 mmol/L (137-145); Total Bilirubin 0.3 mg/dL (0.2-1.3); Total Protein 4.5 g/dL (6.3-8.2)
[2022-04-18] MEDS: HEPARIN SODIUM,PORCINE/PF 5,000 UNIT/0.5 ML SYRINGE SQ SCH ×3 (08:05→23:41)
[2022-04-18] MEDS: FAMOTIDINE 20 MG/2 ML VIAL IV SCH (08:05)
[2022-04-18] MEDS: ONDANSETRON 4 MG/2 ML VIAL IVP PRN (08:05)
[2022-04-18] MEDS: FERROUS SULFATE 325 MG TAB PO SCH ×2 (08:10→20:03)
[2022-04-18] MEDS: CHOLECALCIFEROL 25 MCG (1000 IU) TABLET PO SCH (08:10)
[2022-04-18] MEDS: METOPROLOL TARTRATE 25 MG TAB PO SCH ×2 (08:13→20:03)
[2022-04-18] MEDS: SPIRONOLACTONE 25 MG TAB PO SCH (08:13)
[2022-04-18] MEDS ORDERED: METOPROLOL TARTRATE 12.5 MG TAB PO SCH (09:00)
[2022-04-18] MEDS ORDERED: DILTIAZEM CD 120 MG CAP.ER.24H PO SCH (09:00)
[2022-04-18] MEDS ORDERED: FUROSEMIDE 10 MG/ML 2 ML VIAL IV ONE (09:58)
--- NOTE | 2022-04-18 10:41 | P.CRDCN ---
History of Present Illness Consult date: 04/18/22 History of present illness: HISTORY OF PRESENT ILLNESS: This is a 31-year-old female with a past medical history significant for that kidney disease, type 1 diabetes, anxiety, depression, asthma, GERD, and lymphedema with mild venous insufficiency. Patient does not follow with a scarf gluer. We have been asked to see the patient in consultation for hypertension. Patient examined at the bedside. Patient states over the past 3-4 days she has been having high blood pressure readings at home with a systolic between 160 and 180. She states her blood pressures usually controlled in the 120s. She follows with a fleet salesperson at [facility]. She states that she called him yesterday and he advised her to come to the emergency room. The patient does report she was recently started on 12.5 mg of Aldactone and her lisinopril was discontinued secondary to hypotension. The patient reports she has been on multiple cardiac medications and has been unable to tolerate them. She reports she has been on lisinopril, demadex, and Cozaar. She states the CARLOS EDUARDO/ARB made her hypotensive, even at small doses. * EKG reveals sinus mechanism with no signs of acute ischemia * Chest xray negative for acute process * Laboratory data: WBC 5.1. Hemoglobin 10.3. Platelet count 215. Sodium 135. Potassium 4.4. BUN 24. Creatinine 0.75 * Current home cardiac medications include Lipitor 10 mg at night and Aldactone 12.5 mg daily * Most recent echocardiogram obtained in June 2021 revealed ejection fraction 55- 60% REVIEW OF SYSTEMS: At the time of my exam: CONSTITUTIONAL: Denies fever or chills. HEENT: Denies blurred vision, vision changes, or eye pain. Denies hemoptysis CARDIOVASCULAR: Denies chest pain. Denies orthopnea. Denies PND. Denies palpitations RESPIRATORY: Denies shortness of breath. GASTROINTESTINAL: Denies abdominal pain. Denies nausea or vomiting. HEMATOLOGIC: Denies bleeding disorders. GENITOURINARY: Denies any blood in urine. SKIN: Denies pruitis. Denies rash. PHYSICAL EXAM: VITAL SIGNS: Reviewed. GENERAL: Well-developed in no acute distress. HEENT: Head is normocephalic. Pupils are equal, round. Sclerae anicteric. Mucous membranes of the mouth are moist. Neck supple. No JVD or thyromegaly LUNGS: Respirations even and unlabored. Lungs essentially clear to auscultation bilaterally. HEART: Regular rate and rhythm. S1 and S2 heard. ABDOMEN: Soft. Nondistended. Nontender. EXTREMITIES: Normal range of motion. No clubbing or cyanosis. Peripheral pulses intact. 1+ lower extremity edema NEUROLOGIC: Awake and alert. Oriented x 3. ASSESSMENT: Hypertension Diabetic kidney disease Type 1 diabetes History of lymphedema with mild venous insufficiency Anxiety Depression Asthma PLAN: Obtain 2D echo to assess cardiac structure and function Continue Aldactone Patient has been started on metoprolol per internal medicine Patient has been unable to tolerate lisinopril, losartan, and demadex in the past Blood pressures are improved this morning Await nephrology evaluation Further recommendations pending patient course Nurse practitioner note has been reviewed by physician. Signing provider agrees with the documented findings, assessment, and plan of care. Past Medical History Past Medical History: Asthma, Diabetes Mellitus, GERD/Reflux, Renal Disease, Skin Disorder Additional Past Medical History / Comment(s): hx. hiatal hernia, wounds in groin area, buttocks-thought was ingrown hairs, diabetic kidney disease History of Any Multi-Drug Resistant Organisms: MRSA Date of last positivie culture/infection: 2009 MDRO Source:: unknown Past Surgical History: Section Additional Past Surgical History / Comment(s): cervical abblation Past Anesthesia/Blood Transfusion Reactions: No Reported Reaction, Motion Sickness Additional Past Anesthesia/Blood Transfusion Reaction / Comment(s): Pt has clausterphobia. Kidney biopsy Past Psychological History: Anxiety, Depression Smoking Status: Never smoker Past Alcohol Use History: Occasional Past Drug Use History: None Reported - Past Family History Mother Family Medical History: Thyroid Disorder Additional Family Medical History / Comment(s): gestational diabetes Father Additional Family Medical History / Comment(s): crohnes disease Medications and Allergies Home Medications Medication Instructions Recorded Confirmed Type Insulin Aspart (For Pump) [NovoLOG 0.01 unit SQ-PUMP CONTINUOUS MDD 11/08/17 04/17/22 History (For Pump)] 50-70 UNITS Atorvastatin [Lipitor] 10 mg PO HS 04/15/22 04/17/22 History Cyclobenzaprine [Flexeril] 10 mg PO HS 04/15/22 04/17/22 History Ferrous Sulfate [Feosol] 325 mg PO BID 04/15/22 04/17/22 History Insulin Glargine,Hum.rec.anlog 20 unit SQ DAILY PRN 04/15/22 04/17/22 History [Basaglar Kwikpen U-100] Spironolactone [Aldactone] 12.5 mg PO DAILY 04/15/22 04/17/22 History Allergies Allergy/AdvReac Type Severity Reaction Status Date / Time cephalexin [From Keflex] Allergy Swelling Verified 04/17/22 11:46 (tongue) Physical Exam Vitals: Vital Signs Temp Pulse Pulse Resp BP BP Pulse Ox 04/18/22 09:58 133/83 04/18/22 07:50 97.9 F 95 16 158/101 97 04/18/22 04:00 98.2 F 88 18 132/82 98 04/18/22 00:00 98.4 F 91 18 158/99 99 04/17/22 20:00 98.6 F 93 90 18 143/96 159/103 99 04/17/22 18:48 98 18 149/88 99 04/17/22 17:50 111 H 18 155/91 100 04/17/22 14:15 104 H 18 158/103 99 04/17/22 13:45 102 H 18 160/100 04/17/22 13:00 103 H 18 159/102 100 04/17/22 12:14 100 18 173/108 99 04/17/22 12:03 98 04/17/22 11:28 98 F 103 H 18 159/96 99 Intake and Output 04/17/22 04/18/22 04/18/22 22:59 06:59 14:59 Intake Total 180 Balance 180 Intake: Oral 180 Other: # Voids 3 Weight 97.522 kg Results 04/18/22 06:09 04/18/22 06:09 Cardiac Enzymes 04/17/22 04/18/22 Range/Units 12:16 06:09 AST 82 H 48 H (14-36) U/L CBC 04/17/22 04/18/22 Range/Units 12:16 06:09 WBC 7.0 5.1 (3.8-10.6) k/uL RBC 3.61 L 3.57 L (3.80-5.40) m/uL Hgb 10.3 L 10.3 L (11.4-16.0) gm/dL Hct 30.9 L 31.1 L (34.0-46.0) % Plt Count 208 215 (150-450) k/uL Comprehensive Metabolic Panel 04/17/22 04/18/22 Range/Units 12:16 06:09 Sodium 136 L 135 L (137-145) mmol/L Potassium 4.8 4.4 (3.5-5.1) mmol/L Chloride 113 H 110 H (98-107) mmol/L Carbon Dioxide 22 23 (22-30) mmol/L BUN 31 H 24 H (7-17) mg/dL Creatinine 0.82 0.75 (0.52-1.04) mg/dL Glucose 142 H 93 (74-99) mg/dL Calcium 8.1 L 7.8 L (8.4-10.2) mg/dL AST 82 H 48 H (14-36) U/L ALT 130 H 91 H (4-34) U/L Alkaline Phosphatase 114 100 (38-126) U/L Total Protein 5.1 L 4.5 L (6.3-8.2) g/dL Albumin 2.5 L 2.1 L (3.5-5.0) g/dL Current Medications Generic Name Dose Route Start Last Admin Trade Name Freq PRN Reason Stop Dose Admin Acetaminophen 500 mg 04/17/22 16:55 04/17/22 18:46 Acetaminophen Tab 500 Mg Tab PO 500 mg Q6HR PRN Administration Fever and/ or Pain Acetaminophen/Butalbital/Caffeine 1 each 04/17/22 23:50 04/18/22 00:03 Butalb/Apap/Caff 50-325-40mg Tab PO 1 each Q4HR PRN Administration Headache Atorvastatin Calcium 10 mg 04/17/22 21:00 04/17/22 22:06 Atorvastatin 10 Mg Tab PO 10 mg HS ANDRE Administration Cholecalciferol 25 mcg 04/18/22 09:00 04/18/22 08:10 Cholecalciferol 25 Mcg (1000 Iu) Tablet PO 25 mcg DAILY ANDRE Administration Cyclobenzaprine HCl 10 mg 04/17/22 21:15 04/17/22 22:06 Cyclobenzaprine 10 Mg Tab PO 10 mg HS ANDRE Administration Diphenhydramine HCl 25 mg 04/17/22 21:48 04/17/22 22:06 Diphenhydramine 25 Mg Cap PO 25 mg BID PRN Administration Allergy Symptoms Famotidine 20 mg 04/17/22 21:00 04/18/22 08:05 Famotidine 20 Mg/2 Ml Vial IV 20 mg Q12HR ANDRE Administration Ferrous Sulfate 325 mg 04/17/22 21:15 04/18/22 08:10 Ferrous Sulfate 325 Mg Tab PO 325 mg BID ANDRE Administration Heparin Sodium (Porcine) 5,000 unit 04/18/22 00:00 04/18/22 08:05 Heparin Sodium,Porcine/Pf 5,000 Unit/0.5 Ml Syringe SQ 5,000 unit Q8HR ANDRE Administration Sodium Chloride 1,000 mls @ 20 mls/hr 04/17/22 14:45 04/17/22 14:59 Saline 0.9% IV 20 mls/hr .Q24H ANDRE Administration Insulin Aspart 0.01 unit 04/17/22 15:45 04/18/22 00:02 Insulin Aspart (For Pump) 100 Unit/Ml Vial SQ-PUMP 0.01 unit CONTINUOUS ANDRE Administration Insulin Aspart 0 unit 04/18/22 01:23 Insulin Aspart (Novolog) 100 Unit/Ml Vial SQ DAILY PRN Insulin Pump Replacement Metoprolol Tartrate 25 mg 04/18/22 09:00 04/18/22 08:13 Metoprolol Tartrate 25 Mg Tab PO 25 mg BID ANDRE Administration Miscellaneous Information 1 each 04/18/22 01:23 Insulin Pump Basal Rates 1 Each Misc MISCELLANE Q6HR PRN Blood Sugar - High Protocol Miscellaneous Information 0 unit 04/18/22 01:23 04/18/22 00:15 Insulin Pump Correction Bolus 1 Unit Misc MISCELLANE 0.2 unit ACHS PRN Administration Blood Sugar - High Protocol Naloxone HCl 0.2 mg 04/17/22 14:32 Naloxone 0.4 Mg/Ml 1 Ml Vial IV Q2M PRN Opioid Reversal Ondansetron HCl 4 mg 04/17/22 16:55 04/18/22 08:05 Ondansetron 4 Mg/2 Ml Vial IVP 4 mg Q6HR PRN Administration Nausea And Vomiting Spironolactone 12.5 mg 04/18/22 09:00 04/18/22 08:13 Spironolactone 25 Mg Tab PO 12.5 mg DAILY ANDRE Administration Intake and Output 04/17/22 04/18/22 04/18/22 22:59 06:59 14:59 Intake Total 180 Balance 180 Intake: Oral 180 Other: # Voids 3 Weight 97.522 kg 04/18/22 06:09 04/18/22 06:09
--- NOTE | 2022-04-18 11:24 | P.NPCON ---
History of Present Illness - Reason for Consult proteinuria - History of Present Illness Reason for consultation: Proteinuria History of present illness: Patient is a 31-year-old female seen in consultation for proteinuria and concern for nephrotic syndrome. Patient has history of diabetes type 1 diagnosed at the age of 16. Patient's serologies in May 2021 were negative. Patient states she underwent kidney biopsy at [facility] which showed diabetic nephropathy. GFR is at baseline. Patient presented to the hospital due to high blood pressure readings at home. Patient states she was also having a headache and came to the hospital. She follows with nephrology out of [facility]. Patient states she is not on CARLOS EDUARDO inhibitor as even the lowest dose made her blood pressure dropped too much. She is currently on spironolactone 12.5 mg once daily as well as Lopressor which was started by cardiology. Blood pressure while I was in the room was 133/83. She doesn't due to edema in her lower exam he's. Denies gross hematuria. No vomiting or diarrhea. Oral intake is fair. States she hasn't been eating much recently. Albumin is noted to be low at 2.1. Urinalysis does show 3+ protein. She admits to occasional use of nonsteroidals. Vital signs are stable. General: No acute distress. HEENT: Head exam is unremarkable. LUNGS: No audible rhonchi or wheezes. HEART: Rate and Rhythm are regular. ABDOMEN: No distention. Nontender. EXTREMITITES: 1+ edema. Past Medical History Past Medical History: Asthma, Diabetes Mellitus, GERD/Reflux, Renal Disease, Skin Disorder Additional Past Medical History / Comment(s): hx. hiatal hernia, wounds in groin area, buttocks-thought was ingrown hairs, diabetic kidney disease History of Any Multi-Drug Resistant Organisms: MRSA Date of last positivie culture/infection: 2009 MDRO Source:: unknown Past Surgical History: Section Additional Past Surgical History / Comment(s): cervical abblation Past Anesthesia/Blood Transfusion Reactions: No Reported Reaction, Motion Sickness Additional Past Anesthesia/Blood Transfusion Reaction / Comment(s): Pt has clausterphobia. Kidney biopsy Past Psychological History: Anxiety, Depression Smoking Status: Never smoker Past Alcohol Use History: Occasional Past Drug Use History: None Reported - Past Family History Mother Family Medical History: Thyroid Disorder Additional Family Medical History / Comment(s): gestational diabetes Father Additional Family Medical History / Comment(s): crohnes disease Medications and Allergies Home Medications Medication Instructions Recorded Confirmed Type Insulin Aspart (For Pump) [NovoLOG 0.01 unit SQ-PUMP CONTINUOUS MDD 11/08/17 04/17/22 History (For Pump)] 50-70 UNITS Atorvastatin [Lipitor] 10 mg PO HS 04/15/22 04/17/22 History Cyclobenzaprine [Flexeril] 10 mg PO HS 04/15/22 04/17/22 History Ferrous Sulfate [Feosol] 325 mg PO BID 04/15/22 04/17/22 History Insulin Glargine,Hum.rec.anlog 20 unit SQ DAILY PRN 04/15/22 04/17/22 History [Basaglar Letipen U-100] Spironolactone [Aldactone] 12.5 mg PO DAILY 04/15/22 04/17/22 History Cholecalciferol [Vitamin D3 (25 25 mcg PO DAILY #30 tab 04/18/22 Rx Mcg = 1000 Iu)] Famotidine [Pepcid] 20 mg PO BID #28 tablet 04/18/22 Rx Metoprolol Tartrate [Lopressor] 12.5 mg PO BID 30 Days #60 tablet 04/18/22 Rx Ondansetron Odt [Zofran Odt] 4 mg PO Q8HR PRN 3 Days #9 tab 04/18/22 Rx Allergies Allergy/AdvReac Type Severity Reaction Status Date / Time cephalexin [From Keflex] Allergy Swelling Verified 04/17/22 11:46 (tongue) Physical Exam Vitals: Vital Signs Temp Pulse Pulse Resp BP BP Pulse Ox 04/18/22 09:58 133/83 04/18/22 07:50 97.9 F 95 16 158/101 97 04/18/22 04:00 98.2 F 88 18 132/82 98 04/18/22 00:00 98.4 F 91 18 158/99 99 04/17/22 20:00 98.6 F 93 90 18 143/96 159/103 99 04/17/22 18:48 98 18 149/88 99 04/17/22 17:50 111 H 18 155/91 100 04/17/22 14:15 104 H 18 158/103 99 04/17/22 13:45 102 H 18 160/100 04/17/22 13:00 103 H 18 159/102 100 04/17/22 12:14 100 18 173/108 99 04/17/22 12:03 98 04/17/22 11:28 98 F 103 H 18 159/96 99 Intake and Output 04/17/22 04/18/22 04/18/22 22:59 06:59 14:59 Intake Total 180 Balance 180 Intake: Oral 180 Other: # Voids 3 Weight 97.522 kg Results - Lab Results Most recent lab results Calcium 7.8 mg/dL (8.4-10.2) L 04/18/22 06:09 04/18/22 06:09 04/18/22 06:09 Assessment and Plan Plan: Assessment: 1. Hypertensive urgency. Blood pressure better controlled. 2. Chronic kidney disease stage I secondary to biopsy-proven diabetic nephropathy. 3. Proteinuria secondary to diabetic nephropathy. 4. Type 1 diabetes. 5. Lower extremity edema secondary to nephrotic syndrome. Plan: Maintain spironolactone and Lopressor. Lasix 20 mg IV once today. Depending on blood pressure readings, will benefit from ACEi/ARB if able to tolerate. Avoid nephrotoxins. Encouraged protein intake. Thank you for the consultation. I will continue to follow the patient with you during her hospital stay.
[2022-04-18 11:50] LABS: Glucose,Whole Blood 91 mg/dL (70-110)
[2022-04-18 13:33] LABS: Creatinine,Urine Random 38.7 mg/dL; Protein/Creatinine Ratio,Urine 4.134
[2022-04-18 14:25] VITALS: BMI 32.6
[2022-04-18 17:05] LABS: Glucose,Whole Blood 111 mg/dL (70-110)
[2022-04-18] MEDS: FAMOTIDINE 20 MG TAB PO SCH (20:03)
[2022-04-18] MEDS: ATORVASTATIN 10 MG TAB PO SCH (20:03)
[2022-04-18] MEDS: CYCLOBENZAPRINE 10 MG TAB PO SCH (20:03)
[2022-04-18 20:17] LABS: Glucose,Whole Blood 164 mg/dL (70-110)
[2022-04-18] MEDS: diphenhydrAMINE 25 MG CAP PO PRN (21:45)
[2022-04-19 02:00] LABS: Glucose,Whole Blood 84 mg/dL (70-110)
[2022-04-19 06:31] LABS: Glucose,Whole Blood 112 mg/dL (70-110)
--- NOTE | 2022-04-19 08:52 | CA ---
Transthoracic Echo Report Name: Yarely Enamorado Age: 31 Gender: F : 1990 Exam Date: 04/18/2022 12:12 Exam Location: [place] [facility] Ht (in): 26.8 Wt (lb): 474 Ordering Physician: Cinthya Blackburn Attending/Referring Phys: [id number], Alexey [employer] Designer VC Procedure CPT: Indications: LV function Cardiac Hx: Technical Quality: Contrast 1: Total Dose (mL): Contrast 2: Total Dose (mL): MEASUREMENTS (Male / Female) Normal Values 2D ECHO LV Diastolic Diameter PLAX 5.0 cm 4.2 - 5.9 / 3.9 - 5.3 cm LV Systolic Diameter PLAX 3.9 cm IVS Diastolic Thickness 1.0 cm 0.6 - 1.0 / 0.6 - 0.9 cm LVPW Diastolic Thickness 1.0 cm 0.6 - 1.0 / 0.6 - 0.9 cm LV Relative Wall Thickness 0.4 LVOT Diameter 2.0 cm LV Diastolic Volume MOD BP 108.8 cm??? 67 - 155 / 56 - 104 cm??? LV Systolic Volume MOD BP 40.4 cm??? 22 - 58 / 19 - 49 cm??? LV Ejection Fraction MOD BP 62.8 % >= 55 % LV Diastolic Volume MOD 4C 93.3 cm??? LV Systolic Volume MOD 4C 31.3 cm??? LV Ejection Fraction MOD 4C 66.5 % LV Diastolic Length 4C 9.2 cm LV Systolic Length 4C 7.3 cm LV Diastolic Volume MOD 2C 118.6 cm??? LV Systolic Volume MOD 2C 49.6 cm??? LV Ejection Fraction MOD 2C 58.2 % LV Diastolic Length 2C 8.5 cm LV Systolic Length 2C 6.9 cm LA Volume 87.0 cm??? 18 - 58 / 22 - 52 cm??? Ascending Aorta Diameter 2.8 cm M-MODE LV Diastolic Diameter MM 4.4 cm 4.2 - 5.9 / 3.9 - 5.3 cm LV Systolic Diameter MM 2.9 cm IVS Diastolic Thickness MM 1.0 cm 0.6 - 1.0 / 0.6 - 0.9 cm LVPW Diastolic Thickness MM 1.8 cm 0.6 - 1.0 / 0.6 - 0.9 cm LV Relative Wall Thickness MM 0.6 0.24 - 0.42 / 0.22 - 0.42 LV Mass Index MM 116.5 g/m??? 49 - 115 / 43 - 95 g/m??? Aortic Root Diameter MM 3.0 cm LA Systolic Diameter MM 3.9 cm LA Ao Ratio MM 1.3 MV E Point Septal Separation 1.0 cm DOPPLER AV Peak Velocity 125.0 cm/s AV Peak Gradient 6.3 mmHg LVOT Peak Velocity 115.1 cm/s LVOT Peak Gradient 5.3 mmHg AV Area Cont Eq pk 2.8 cm??? Mitral E Point Velocity 93.3 cm/s Mitral A Point Velocity 69.9 cm/s Mitral E to A Ratio 1.3 MV Deceleration Time 143.1 ms MV E' Velocity 7.8 cm/s Mitral E to MV E' Ratio 11.9 Pulmonary Vein S/D Ratio 1.0 Pulmonary Vein A to Mitral A Rat 0.4 TR Peak Velocity 223.2 cm/s TR Peak Gradient 19.9 mmHg Right Ventricular Systolic Press 24.9 mmHg PV Peak Velocity 91.5 cm/s PV Peak Gradient 3.3 mmHg FINDINGS Left Ventricle Left ventricular ejection fraction is estimated at 60-65 %. .Normal Left ventricular size, wall thickness, systolic function with no obvious regional wall motion abnormalities. Normal Left ventricular diastolic filling pattern. Right Ventricle Normal right ventricular size and function. Right Atrium Normal right atrial size. Left Atrium Mild left atrial dilatation. Mitral Valve Structurally normal mitral valve. Mild mitral regurgitation. Aortic Valve Trileaflet aortic valve. No aortic valve stenosis or regurgitation. Tricuspid Valve Mild tricuspid regurgitation. Pulmonic Valve Structurally normal pulmonic valve. Pericardium Normal pericardium. No pericardial effusion. Aorta Normal size aortic root and proximal ascending aorta. CONCLUSIONS Normal LV function Mild mitral regurgitation Previewed by: Dr. Lopez Taylor MD (Electronically Signed) Final Date: 19 April 2022 08:51
[2022-04-19] MEDS: HEPARIN SODIUM,PORCINE/PF 5,000 UNIT/0.5 ML SYRINGE SQ SCH ×3 (09:06→23:08)
[2022-04-19] MEDS: SPIRONOLACTONE 25 MG TAB PO SCH (09:06)
[2022-04-19] MEDS: METOPROLOL TARTRATE 25 MG TAB PO SCH ×3 (09:06→23:05)
[2022-04-19] MEDS: FERROUS SULFATE 325 MG TAB PO SCH ×2 (09:06→19:58)
[2022-04-19] MEDS: FAMOTIDINE 20 MG TAB PO SCH ×2 (09:07→19:58)
[2022-04-19] MEDS: CHOLECALCIFEROL 25 MCG (1000 IU) TABLET PO SCH (09:07)
[2022-04-19 10:09] LABS: African American GFR (CKD) >90 (>60 ml/min/1.73 sqM); Anion Gap 2 mmol/L; Blood Urea Nitrogen 19 mg/dL (7-17); Calcium 8.1 mg/dL (8.4-10.2); Carbon Dioxide 25 mmol/L (22-30); Chloride 109 mmol/L (98-107); Glucose 112 mg/dL (74-99); Non-African American GFR(CKD) >90 (>60 ml/min/1.73 sqM); Sodium 136 mmol/L (137-145)
[2022-04-19 11:59] LABS: Glucose,Whole Blood 142 mg/dL (70-110)
--- NOTE | 2022-04-19 12:09 | P.PN ---
Subjective Progress Note Date: 04/19/22 Patient seen resting comfortably in bed in no signs of acute distress her echocardiogram showed a normal LV function with mild mitral regurgitation. She continues on the Aldactone and metoprolol. Her blood pressure is elevated this morning at 165/96. It seems like the metoprolol controls her blood pressure for about after 8 hours and her blood pressure begins to elevate. Objective - Vital Signs Vital signs: Vital Signs Temp 97 F L 04/19/22 08:15 Pulse 101 H 04/19/22 08:15 Resp 18 04/19/22 08:15 BP 165/96 04/19/22 08:15 Pulse Ox 98 04/19/22 08:15 FiO2 Intake & Output 04/18/22 04/19/22 04/19/22 18:59 06:59 18:59 Intake Total 300 1080 Output Total 400 Balance -100 1080 Weight 97.522 kg Intake: Oral 300 1080 Output: Urine 400 Other: Voiding Method Toilet Toilet - Exam VITAL SIGNS: Reviewed. GENERAL: Well-developed in no acute distress. HEENT: Head is normocephalic. Pupils are equal, round. Sclerae anicteric. Mucous membranes of the mouth are moist. Neck supple. No JVD or thyromegaly LUNGS: Respirations even and unlabored. Lungs essentially clear to auscultation bilaterally. HEART: Regular rate and rhythm. S1 and S2 heard. ABDOMEN: Soft. Nondistended. Nontender. EXTREMITIES: Normal range of motion. No clubbing or cyanosis. Peripheral pulses intact. 1+ lower extremity edema NEUROLOGIC: Awake and alert. Oriented x 3. - Labs CBC & Chem 7: 04/18/22 06:09 04/19/22 09:07 Labs: Abnormal Lab Results - Last 24 Hours (Table) 04/18/22 04/18/22 04/19/22 Range/Units 16:59 20:16 06:30 Sodium (137-145) mmol/L Chloride (98-107) mmol/L BUN (7-17) mg/dL Glucose (74-99) mg/dL POC Glucose (mg/dL) 111 H 164 H 112 H (70-110) mg/dL Calcium (8.4-10.2) mg/dL 04/19/22 04/19/22 Range/Units 09:07 11:58 Sodium 136 L (137-145) mmol/L Chloride 109 H (98-107) mmol/L BUN 19 H (7-17) mg/dL Glucose 112 H (74-99) mg/dL POC Glucose (mg/dL) 142 H (70-110) mg/dL Calcium 8.1 L (8.4-10.2) mg/dL Assessment and Plan Assessment: Hypertension Diabetic kidney disease Type 1 diabetes History of lymphedema with mild venous insufficiency Anxiety Depression Asthma Plan: Obtained and reviewed 2D echo Continue Aldactone Increase metoprolol to 25 mg 3 times a day Patient has been unable to tolerate lisinopril, losartan, and demadex in the past Blood pressures are improved this morning nephrology following Further recommendations pending patient course Nurse practitioner note has been reviewed by physician. Signing provider agrees with the documented findings, assessment, and plan of care.
--- NOTE | 2022-04-19 13:05 | P.PN ---
Subjective patient is seen for follow-up for uncontrolled hypertension, proteinuria and nephrotic syndrome. Patient has1 diabetes diagnosed at age of 16. Status post kidney biopsy at [facility] which showed diabetic nephropathy. Patient follows with nephrology out of [facility]. She was admitted to the hospital with uncontrolled hypertension which is unusual for her as her blood pressure usually stays on the lower side. Patient did admit to increased lower extremity swelling over the last few days prior to admission. Patient has been restarted on Aldactone which she had stopped due to significant dizziness and lightheadedness. She is tolerating the Aldactone fairly well. Metoprolol has also been added. Status post IV Lasix 20 mg yesterday Sytolic blood pressure about 130 to 150 Objective - Vital Signs Vital signs: Vital Signs Temp 99 F 04/19/22 12:37 Pulse 87 04/19/22 12:37 Resp 18 04/19/22 12:37 BP 132/57 04/19/22 12:37 Pulse Ox 99 04/19/22 12:37 FiO2 Intake & Output 04/18/22 04/19/22 04/19/22 18:59 06:59 18:59 Intake Total 300 1080 Output Total 400 Balance -100 1080 Weight 97.522 kg Intake: Oral 300 1080 Output: Urine 400 Other: Voiding Method Toilet Toilet # Bowel Movements 0 - Exam awake, comfortable, in no acute distress Examination of the heart S1 and S2 Examination of the lungs bilateral breath sounds are heard Abdomen is soft nontender Examination of the lower extremities shows 1+ edema [employer] exam grossly intact - Labs CBC & Chem 7: 04/18/22 06:09 04/19/22 09:07 Labs: Abnormal Lab Results - Last 24 Hours (Table) 04/18/22 04/18/22 04/19/22 Range/Units 16:59 20:16 06:30 Sodium (137-145) mmol/L Chloride (98-107) mmol/L BUN (7-17) mg/dL Glucose (74-99) mg/dL POC Glucose (mg/dL) 111 H 164 H 112 H (70-110) mg/dL Calcium (8.4-10.2) mg/dL 04/19/22 04/19/22 Range/Units 09:07 11:58 Sodium 136 L (137-145) mmol/L Chloride 109 H (98-107) mmol/L BUN 19 H (7-17) mg/dL Glucose 112 H (74-99) mg/dL POC Glucose (mg/dL) 142 H (70-110) mg/dL Calcium 8.1 L (8.4-10.2) mg/dL Assessment and Plan Assessment: 1. Hypertensive urgency. os likely related to volume overload. Repeat Lasix today. Tolerating low-dose Aldactone. also maintained on metoprolol.Blood pressure better controlled. 2. Chronic kidney disease stage I secondary to biopsy-proven diabetic nephropathy. 3. Proteinuria secondary to diabetic nephropathy. 4. Type 1 diabetes. 5. Lower extremity edema secondary to nephrotic syndrome. Plan: Continue with current dose of Aldactone and metoprolol Add low-dose loop diuretics Consider switching metoprolol to low-dose CARLOS EDUARDO inhibitor's/ARBs if blood pressure remains elevated as outpatient Maintain low salt intake Possible discharge today if blood pressure remains controlled Follow-up with nephrology in 1-2 weeks post discharge. Patient follows with nephrology out of [facility].
[2022-04-19] MEDS ORDERED: FUROSEMIDE 10 MG/ML 2 ML VIAL IV ONE (13:15)
[2022-04-19] MEDS: FUROSEMIDE 20 MG TAB PO SCH (16:06)
[2022-04-19] MEDS: Insulin Aspart (For Pump) 100 UNIT/ML VIAL SQ-PUMP SCH (16:07)
[2022-04-19 17:00] LABS: Glucose,Whole Blood 126 mg/dL (70-110)
[2022-04-19] MEDS: CYCLOBENZAPRINE 10 MG TAB PO SCH (19:59)
[2022-04-19] MEDS: ATORVASTATIN 10 MG TAB PO SCH (19:59)
[2022-04-19 20:08] LABS: Glucose,Whole Blood 139 mg/dL (70-110)
--- NOTE | 2022-04-19 22:27 | P.PN ---
Subjective Progress Note Date: 04/18/22 Patient is a 31-year-old female with a known history of diabetes type 1 on insulin pump, nephrotic syndrome, diabetic nephropathy, asthma, anxiety/depression presents to ER due to concern for high blood pressure. Patient is currently on spironolactone. Patient states that she was tried on multiple blood pressure medications to control blood pressure. Follows with her plug drill operator at [facility]. Patient took her blood pressure at home and SBP found to be in 160s. Patient did get in touch with her plug drill operator and recommended to go to the emergency department. She was complaining of nausea and unable to tolerate oral diet. Also complains of headache. Patient was previously lisinopril was stopped due to hypotension. Later changed to low-dose torsemide which made her nauseated and currently on spironolactone 12.5 mg daily at home. Patient states that she is also having nausea and GERD symptoms and unable to tolerate oral diet for the past 1 week. blood pressure was 173/108 in the ER. She was given a dose of IV hydralazine, Cardizem 120 mg in the ER. She was also tachycardic with heart rate went up to 116. EKG showed sinus rhythm Chest x-ray showed no acute cardiopulmonary process Laboratory data showed WBC 7.0 hemoglobin 10.3 and platelets 208 Sodium 136 potassium 4.8 chloride 103 bicarb is 22 BUN 31 and creatinine 0.82 and blood sugar is 132. Calcium 8.1 AST 82 and ALT 130 alk phos 114 and albumin 2.5 Urinalysis showed 3+ protein 1+ glucose and moderate leukocyte esterase negative. 04/18/2022 Patient is currently lying in the bed. Awake alert and oriented x3. Nausea did improve today. No episodes of vomiting. No complaints of chest pain or shortness of breath. Patient has been afebrile. Leg swelling is improving and was given a dose of IV Lasix as per nephrology recommendations. Patient is being continued on Aldactone and metoprolol 25 mg twice daily. Blood pressure this morning was 133/83 heart rate 95 and saturating at 100% on room air. Cardiology has seen the patient 2D echocardiogram was ordered. Laboratory test showed WBC 5.1 hemoglobin 10.3 and platelets 215 sodium 135 potassium 4.4, chloride 110 and bicarb is 23 BUN 24 and creatinine 0.75 calcium 7.8 AST 48 ALT 2 1 alk phos 100 albumin is 2.1. Urine protein creatinine ratio is 4.1. Nephrology and cardiology is on board. Objective - Vital Signs Vital signs: Vital Signs Temp 98.3 F 04/18/22 20:00 Pulse 103 H 04/18/22 20:00 Resp 18 04/18/22 20:00 BP 175/95 04/18/22 20:00 Pulse Ox 100 04/18/22 20:00 FiO2 Intake & Output 04/18/22 04/18/22 04/19/22 06:59 18:59 06:59 Intake Total 300 540 Output Total 400 Balance -100 540 Weight 97.522 kg 97.522 kg Intake: Oral 300 540 Output: Urine 400 Other: Voiding Method Toilet # Voids 3 - Exam PHYSICAL EXAMINATION: Patient is lying in the bed comfortably, no acute distress, awake alert and oriented.. HEENT: Normocephalic. Neck is supple. Pupils reactive. Nostrils clear. Oral cavity is moist. Neck reveals no JVD, carotid bruits, or thyromegaly. CHEST EXAMINATION: Trachea is central. Symmetrical expansion. Lung hall clear to auscultation and percussion. CARDIAC: Normal S1, S2 with no gallops. No murmurs ABDOMEN: Soft. Bowel sounds present. Nontender. No organomegaly. No abdominal bruits. Extremities: reveal 2+ edema. No clubbing or cyanosis Neurologically awake, alert, oriented x3 with well-coordinated movements. No focal deficits noted Skin: No rash or skin lesions. Psychiatric: Coperative. Nonsuicidal, anxious. Musculoskeletal: No joint swelling or deformity. Normal range of motion. - Labs CBC & Chem 7: 04/18/22 06:09 04/19/22 09:07 Labs: Abnormal Lab Results - Last 24 Hours (Table) 04/17/22 04/18/22 04/18/22 Range/Units 23:51 02:57 06:09 RBC (3.80-5.40) m/uL Hgb (11.4-16.0) gm/dL Hct (34.0-46.0) % Sodium 135 L (137-145) mmol/L Chloride 110 H (98-107) mmol/L BUN 24 H (7-17) mg/dL POC Glucose (mg/dL) 162 H 143 H (70-110) mg/dL Calcium 7.8 L (8.4-10.2) mg/dL AST 48 H (14-36) U/L ALT 91 H (4-34) U/L Total Protein 4.5 L (6.3-8.2) g/dL Albumin 2.1 L (3.5-5.0) g/dL 04/18/22 04/18/22 04/18/22 Range/Units 06:09 16:59 20:16 RBC 3.57 L (3.80-5.40) m/uL Hgb 10.3 L (11.4-16.0) gm/dL Hct 31.1 L (34.0-46.0) % Sodium (137-145) mmol/L Chloride (98-107) mmol/L BUN (7-17) mg/dL POC Glucose (mg/dL) 111 H 164 H (70-110) mg/dL Calcium (8.4-10.2) mg/dL AST (14-36) U/L ALT (4-34) U/L Total Protein (6.3-8.2) g/dL Albumin (3.5-5.0) g/dL Assessment and Plan Assessment: Hypertensive urgency on admission/uncontrolled hypertension, improving Nephrotic syndrome due to diabetic nephropathy s/p renal biopsy at [facility] Diabetes type 1 insulin pump Bilateral lower extremity edema Hypoalbuminemia DVT prophylaxis with heparin subcu Plan: Patient is currently Aldactone and metoprolol 25 mg twice daily. Was given a dose of IV Lasix 20 mg x 1 due to leg swelling. Patient was not able to tolerate multiple blood pressure medications previously. Current symptomatic management for nausea vomiting. Continue to titrate blood pressure medications. Cardiology and nephrology is on board. Follow-up 2D echocardiogram. Discussed with the patient and her family member at bedside in detail. Time with Patient: Greater than 30
--- NOTE | 2022-04-19 22:34 | P.PN ---
Subjective Progress Note Date: 04/19/22 Patient is a 31-year-old female with a known history of diabetes type 1 on insulin pump, nephrotic syndrome, diabetic nephropathy, asthma, anxiety/depression presents to ER due to concern for high blood pressure. Patient is currently on spironolactone. Patient states that she was tried on multiple blood pressure medications to control blood pressure. Follows with her hemmer automatic at [facility]. Patient took her blood pressure at home and SBP found to be in 160s. Patient did get in touch with her hemmer automatic and recommended to go to the emergency department. She was complaining of nausea and unable to tolerate oral diet. Also complains of headache. Patient was previously lisinopril was stopped due to hypotension. Later changed to low-dose torsemide which made her nauseated and currently on spironolactone 12.5 mg daily at home. Patient states that she is also having nausea and GERD symptoms and unable to tolerate oral diet for the past 1 week. blood pressure was 173/108 in the ER. She was given a dose of IV hydralazine, Cardizem 120 mg in the ER. She was also tachycardic with heart rate went up to 116. EKG showed sinus rhythm Chest x-ray showed no acute cardiopulmonary process Laboratory data showed WBC 7.0 hemoglobin 10.3 and platelets 208 Sodium 136 potassium 4.8 chloride 103 bicarb is 22 BUN 31 and creatinine 0.82 and blood sugar is 132. Calcium 8.1 AST 82 and ALT 130 alk phos 114 and albumin 2.5 Urinalysis showed 3+ protein 1+ glucose and moderate leukocyte esterase negative. 04/18/2022 Patient is currently lying in the bed. Awake alert and oriented x3. Nausea did improve today. No episodes of vomiting. No complaints of chest pain or shortness of breath. Patient has been afebrile. Leg swelling is improving and was given a dose of IV Lasix as per nephrology recommendations. Patient is being continued on Aldactone and metoprolol 25 mg twice daily. Blood pressure this morning was 133/83 heart rate 95 and saturating at 100% on room air. Cardiology has seen the patient 2D echocardiogram was ordered. Laboratory test showed WBC 5.1 hemoglobin 10.3 and platelets 215 sodium 135 potassium 4.4, chloride 110 and bicarb is 23 BUN 24 and creatinine 0.75 calcium 7.8 AST 48 ALT 2 1 alk phos 100 albumin is 2.1. Urine protein creatinine ratio is 4.1. Nephrology and cardiology is on board. 04/19/2022 Patient is currently sitting in the chair. Awake alert and oriented x3. Feels much improved. No complaints of nausea today. Was able to tolerate oral diet. Otherwise patient is still tachycardic and metoprolol dose increased to 25 mg twice daily. Blood pressure this morning is 165/96 and heart rate 101. Continued on Aldactone 12.5 mg daily. 2D echocardiogram showed normal LV function. Mild MR. Laboratory data showed sodium 136 potassium 5.0 chloride 109 bicarb is 25 BUN 19 and creatinine 0.75 A1c level is 8.0. Patient is on insulin pump. Current medications reviewed. Objective - Vital Signs Vital signs: Vital Signs Temp 98.1 F 04/19/22 19:57 Pulse 90 04/19/22 20:00 Resp 18 04/19/22 20:00 BP 137/86 04/19/22 19:57 Pulse Ox 97 04/19/22 19:57 FiO2 Intake & Output 04/19/22 04/19/22 04/20/22 06:59 18:59 06:59 Intake Total 1080 540 Balance 1080 540 Intake: Oral 1080 540 Other: Voiding Method Toilet Toilet # Bowel Movements 0 - Exam PHYSICAL EXAMINATION: Patient is lying in the bed comfortably, no acute distress, awake alert and oriented.. HEENT: Normocephalic. Neck is supple. Pupils reactive. Nostrils clear. Oral cavity is moist. Neck reveals no JVD, carotid bruits, or thyromegaly. CHEST EXAMINATION: Trachea is central. Symmetrical expansion. Lung hall clear to auscultation and percussion. CARDIAC: Normal S1, S2 with no gallops. No murmurs ABDOMEN: Soft. Bowel sounds present. Nontender. No organomegaly. No abdominal bruits. Extremities: reveal 2+ edema. No clubbing or cyanosis Neurologically awake, alert, oriented x3 with well-coordinated movements. No focal deficits noted Skin: No rash or skin lesions. Psychiatric: Coperative. Nonsuicidal, anxious. Musculoskeletal: No joint swelling or deformity. Normal range of motion. - Labs CBC & Chem 7: 04/18/22 06:09 04/19/22 09:07 Labs: Abnormal Lab Results - Last 24 Hours (Table) 04/19/22 04/19/22 04/19/22 Range/Units 06:30 09:07 09:07 Sodium 136 L (137-145) mmol/L Chloride 109 H (98-107) mmol/L BUN 19 H (7-17) mg/dL Glucose 112 H (74-99) mg/dL POC Glucose (mg/dL) 112 H (70-110) mg/dL Hemoglobin A1c 8.0 H (0.0-6.0) % Calcium 8.1 L (8.4-10.2) mg/dL 04/19/22 04/19/22 04/19/22 Range/Units 11:58 16:59 20:06 Sodium (137-145) mmol/L Chloride (98-107) mmol/L BUN (7-17) mg/dL Glucose (74-99) mg/dL POC Glucose (mg/dL) 142 H 126 H 139 H (70-110) mg/dL Hemoglobin A1c (0.0-6.0) % Calcium (8.4-10.2) mg/dL Assessment and Plan Assessment: Hypertensive urgency on admission/uncontrolled hypertension, improving Nephrotic syndrome due to diabetic nephropathy s/p renal biopsy at [facility] Uncontrolled Diabetes type 1 insulin pump. a1 c 8.1 Bilateral lower extremity edema Hypoalbuminemia DVT prophylaxis with heparin subcu Plan: Patient is currently Aldactone and metoprolol 25 mg twice daily-increased to TID. Was given a dose of IV Lasix 20 mg x 1 due to leg swelling. Patient was not able to tolerate multiple blood pressure medications previously. Current symptomatic management for nausea vomiting. Continue to titrate blood pressure medications. Cardiology and nephrology is on board. 2D echocardiogram.Showed normal EF. Discussed with the patient and her family member at bedside in detail. Anticipate discharge in the next 24 hours. Time with Patient: Greater than 30
[2022-04-19] MEDS: diphenhydrAMINE 25 MG CAP PO PRN (23:05)
[2022-04-20 03:10] LABS: Glucose,Whole Blood 148 mg/dL (70-110)
[2022-04-20 06:19] LABS: Glucose,Whole Blood 133 mg/dL (70-110)
[2022-04-20] MEDS: ONDANSETRON 4 MG/2 ML VIAL IVP PRN (06:33)
[2022-04-20 07:53] LABS: African American GFR (CKD) >90 (>60 ml/min/1.73 sqM); Anion Gap 3 mmol/L; Blood Urea Nitrogen 20 mg/dL (7-17); Carbon Dioxide 24 mmol/L (22-30); Chloride 109 mmol/L (98-107); Glucose 120 mg/dL (74-99); Non-African American GFR(CKD) >90 (>60 ml/min/1.73 sqM); Potassium 4.6 mmol/L (3.5-5.1); Sodium 136 mmol/L (137-145)
[2022-04-20] MEDS: HEPARIN SODIUM,PORCINE/PF 5,000 UNIT/0.5 ML SYRINGE SQ SCH ×3 (08:06→22:54)
[2022-04-20] MEDS: SPIRONOLACTONE 25 MG TAB PO SCH (08:07)
[2022-04-20] MEDS: FERROUS SULFATE 325 MG TAB PO SCH ×2 (08:07→19:51)
[2022-04-20] MEDS: FAMOTIDINE 20 MG TAB PO SCH ×2 (08:07→19:50)
[2022-04-20] MEDS: METOPROLOL TARTRATE 25 MG TAB PO SCH ×3 (08:07→22:53)
[2022-04-20] MEDS: CHOLECALCIFEROL 25 MCG (1000 IU) TABLET PO SCH (08:07)
[2022-04-20] MEDS: FUROSEMIDE 20 MG TAB PO SCH ×2 (08:07→16:00)
[2022-04-20] MEDS ORDERED: FUROSEMIDE 10 MG/ML 4 ML VIAL IV STA (10:02)
[2022-04-20 11:54] LABS: Glucose,Whole Blood 145 mg/dL (70-110)
--- NOTE | 2022-04-20 12:02 | P.PN ---
Subjective patient is seen for follow-up for uncontrolled hypertension, proteinuria and nephrotic syndrome. Patient has1 diabetes diagnosed at age of 16. Status post kidney biopsy at [facility] which showed diabetic nephropathy. Patient follows with nephrology out of [facility]. She was admitted to the hospital with uncontrolled hypertension which is unusual for her as her blood pressure usually stays on the lower side. Patient did admit to increased lower extremity swelling over the last few days prior to admission. Patient has been restarted on Aldactone which she had stopped due to significant dizziness and lightheadedness. She is tolerating the Aldactone fairly well. Metoprolol has also been added. Status post IV Lasix 20 mg yesterday Blood pressure had improved but is again elevated with systolic around 160 this morning. Metoprolol dose has been increased. Patient tolerated Lasix fairly well. Objective - Vital Signs Vital signs: Vital Signs Temp 97 F L 04/20/22 08:10 Pulse 93 04/20/22 08:10 Resp 16 04/20/22 08:10 BP 157/90 04/20/22 09:10 Pulse Ox 98 04/20/22 08:10 FiO2 Intake & Output 04/19/22 04/20/22 04/20/22 18:59 06:59 18:59 Intake Total 1080 180 Balance 1080 180 Weight 96.7 kg Intake: Oral 1080 180 Other: Voiding Method Toilet # Bowel Movements 0 - Exam awake, comfortable, in no acute distress Examination of the heart S1 and S2 Examination of the lungs bilateral breath sounds are heard Abdomen is soft nontender Examination of the lower extremities shows 1+ edema S[employer] SUPERVISOR exam grossly intact - Labs CBC & Chem 7: 04/18/22 06:09 04/20/22 06:57 Labs: Abnormal Lab Results - Last 24 Hours (Table) 04/19/22 04/19/22 04/19/22 Range/Units 09:07 16:59 20:06 Sodium (137-145) mmol/L Chloride (98-107) mmol/L BUN (7-17) mg/dL Glucose (74-99) mg/dL POC Glucose (mg/dL) 126 H 139 H (70-110) mg/dL Hemoglobin A1c 8.0 H (0.0-6.0) % Calcium (8.4-10.2) mg/dL 04/20/22 04/20/22 04/20/22 Range/Units 03:05 06:18 06:57 Sodium 136 L (137-145) mmol/L Chloride 109 H (98-107) mmol/L BUN 20 H (7-17) mg/dL Glucose 120 H (74-99) mg/dL POC Glucose (mg/dL) 148 H 133 H (70-110) mg/dL Hemoglobin A1c (0.0-6.0) % Calcium 8.0 L (8.4-10.2) mg/dL 04/20/22 Range/Units 11:51 Sodium (137-145) mmol/L Chloride (98-107) mmol/L BUN (7-17) mg/dL Glucose (74-99) mg/dL POC Glucose (mg/dL) 145 H (70-110) mg/dL Hemoglobin A1c (0.0-6.0) % Calcium (8.4-10.2) mg/dL Assessment and Plan Assessment: 1. Hypertensive urgency. os likely related to volume overload. Repeat Lasix today. Tolerating low-dose Aldactone. also maintained on metoprolol.Blood pressure better controlled. This morning blood pressure was elevated again. I will increase the Aldactone and we can add low-dose CARLOS EDUARDO inhibitor's if blood pressure remains elevated. Repeat IV Lasix. 2. Chronic kidney disease stage I secondary to biopsy-proven diabetic nephropathy. 3. Proteinuria secondary to diabetic nephropathy. 4. Type 1 diabetes. 5. Lower extremity edema secondary to nephrotic syndrome. Plan: Repeat IV Lasix Increase Aldactone Add CARLOS EDUARDO inhibitor's if blood pressure remains elevated.
--- NOTE | 2022-04-20 13:01 | PN ---
PROGRESS NOTE SUBJECTIVE: Yarely is a 31-year-old lady with history of renal insufficiency and hypertension who continues to have uncontrolled hypertension. She was on Aldactone 12.5 mg daily, this is going to be increased to 25 mg daily. She is on metoprolol 25 t.i.d. and is on p.o. Lasix 20 b.i.d. OBJECTIVE: GENERAL: She is comfortable at rest, afebrile. VITAL SIGNS: Heart rate is 90 beats per minute, blood pressure is 157/90, and respiratory rate is 18. CHEST: Reveals good air entry bilaterally. HEART: Reveals first and second heart sounds. No gallop, no murmur. ABDOMEN: Soft. EXTREMITIES: Reveal bilateral 1+ edema. ASSESSMENT: 1. Nephrotic syndrome with proteinuria. 2. Type 1 diabetes. 3. Diabetic nephropathy. 4. Uncontrolled hypertension. PLAN: I think I am going to let the cutter hot knife change her antihypertensives at this stage. The patient had an echocardiogram on this admission that revealed normal LV systolic function with mild mitral regurgitation. We will follow the patient on an as-needed basis and arrange followup with her own cutter hot knife at [facility]. She does not require cardiac followup at this time. Thank you for giving us the privilege to participate in care of this pleasant lady. MMODL / IJN: [id number] /
[2022-04-20] MEDS: Insulin Aspart (For Pump) 100 UNIT/ML VIAL SQ-PUMP SCH (15:57)
[2022-04-20 16:27] LABS: Glucose,Whole Blood 171 mg/dL (70-110)
[2022-04-20] MEDS: CYCLOBENZAPRINE 10 MG TAB PO SCH (19:50)
[2022-04-20] MEDS: ATORVASTATIN 10 MG TAB PO SCH (19:51)
[2022-04-20 20:21] LABS: Glucose,Whole Blood 163 mg/dL (70-110)
[2022-04-20] MEDS: diphenhydrAMINE 25 MG CAP PO PRN (22:53)
[2022-04-21 03:21] LABS: Glucose,Whole Blood 124 mg/dL (70-110)
[2022-04-21 06:27] LABS: Glucose,Whole Blood 133 mg/dL (70-110)
[2022-04-21 06:53] LABS: Basophils % (A) 0 %; Eosinophils # (A) 0.1 k/uL (0-0.7); Eosinophils % (A) 1 %; HCT 31.7 % (34.0-46.0); HGB 10.6 gm/dL (11.4-16.0); Lymphocytes # (A) 2.4 k/uL (1.0-4.8); Lymphocytes % (A) 33 %; MCH 28.8 pg (25.0-35.0); MCHC 33.6 g/dL (31.0-37.0); MCV 85.8 fL (80.0-100.0); Mean Platelet Volume 7.7; Monocytes # (A) 0.5 k/uL (0-1.0); Monocytes % (A) 7 %; Neutrophils % (A) 57 %; Platelet Count 229 k/uL (150-450); RBC 3.69 m/uL (3.80-5.40); RDW 13.4 % (11.5-15.5)
[2022-04-21 07:18] LABS: African American GFR (CKD) >90 (>60 ml/min/1.73 sqM); Anion Gap 5 mmol/L; Blood Urea Nitrogen 28 mg/dL (7-17); Calcium 8.2 mg/dL (8.4-10.2); Carbon Dioxide 23 mmol/L (22-30); Chloride 107 mmol/L (98-107); Glucose 130 mg/dL (74-99); Non-African American GFR(CKD) >90 (>60 ml/min/1.73 sqM); Potassium 4.7 mmol/L (3.5-5.1); Sodium 135 mmol/L (137-145)
[2022-04-21] MEDS: SPIRONOLACTONE 25 MG TAB PO SCH (07:38)
[2022-04-21] MEDS: CHOLECALCIFEROL 25 MCG (1000 IU) TABLET PO SCH (07:39)
[2022-04-21] MEDS: FUROSEMIDE 20 MG TAB PO SCH ×2 (07:39→15:30)
[2022-04-21] MEDS: METOPROLOL TARTRATE 25 MG TAB PO SCH ×3 (07:39→23:09)
[2022-04-21] MEDS: FERROUS SULFATE 325 MG TAB PO SCH ×2 (07:39→20:27)
[2022-04-21] MEDS: FAMOTIDINE 20 MG TAB PO SCH ×2 (07:39→20:27)
[2022-04-21] MEDS: HEPARIN SODIUM,PORCINE/PF 5,000 UNIT/0.5 ML SYRINGE SQ SCH ×2 (07:41→15:23)
[2022-04-21] MEDS ORDERED: FUROSEMIDE 10 MG/ML 4 ML VIAL IV STA (10:37)
[2022-04-21] MEDS ORDERED: SPIRONOLACTONE 25 MG TAB PO STA (11:17)
[2022-04-21] MEDS: INSPUCOR MISCELLANE PRN ×2 (11:25→15:30)
[2022-04-21 12:16] LABS: Glucose,Whole Blood 114 mg/dL (70-110)
[2022-04-21] MEDS: lisinopriL 5 MG TAB PO SCH (12:35)
[2022-04-21] MEDS: ONDANSETRON 4 MG/2 ML VIAL IVP PRN (12:37)
--- NOTE | 2022-04-21 13:24 | P.PN ---
Subjective patient is seen for follow-up for uncontrolled hypertension, proteinuria and nephrotic syndrome. Patient has1 diabetes diagnosed at age of 16. Status post kidney biopsy at [facility] which showed diabetic nephropathy. Patient follows with nephrology out of [facility]. She was admitted to the hospital with uncontrolled hypertension which is unusual for her as her blood pressure usually stays on the lower side. Patient did admit to increased lower extremity swelling over the last few days prior to admission. Patient has been restarted on Aldactone which she had stopped due to significant dizziness and lightheadedness. She is tolerating the Aldactone fairly well. Metoprolol has also been added. Status post IV Lasix Blood pressure had improved but was elevated last night. Metoprolol dose has been increased. Patient tolerated Lasix fairly well. Objective - Vital Signs Vital signs: Vital Signs Temp 97.3 F L 04/21/22 12:00 Pulse 91 04/21/22 12:00 Resp 16 04/21/22 12:00 BP 139/93 04/21/22 12:00 Pulse Ox 99 04/21/22 12:00 FiO2 Intake & Output 04/20/22 04/21/22 04/21/22 18:59 06:59 18:59 Intake Total 416 1080 240 Output Total 600 Balance 416 1080 -360 Weight 95.5 kg Intake: Oral 416 1080 240 Output: Urine 600 Other: Voiding Method Toilet Toilet # Voids 1 # Bowel Movements 0 - Exam awake, comfortable, in no acute distress Examination of the heart S1 and S2 Examination of the lungs bilateral breath sounds are heard Abdomen is soft nontender Examination of the lower extremities shows 1+ edema , improved STATUS CONTROLLER exam grossly intact - Labs CBC & Chem 7: 04/21/22 06:05 04/21/22 06:05 Labs: Abnormal Lab Results - Last 24 Hours (Table) 04/20/22 04/20/22 04/21/22 Range/Units 16:26 20:20 03:19 RBC (3.80-5.40) m/uL Hgb (11.4-16.0) gm/dL Hct (34.0-46.0) % Sodium (137-145) mmol/L BUN (7-17) mg/dL Glucose (74-99) mg/dL POC Glucose (mg/dL) 171 H 163 H 124 H (70-110) mg/dL Calcium (8.4-10.2) mg/dL 04/21/22 04/21/22 04/21/22 Range/Units 06:05 06:05 06:26 RBC 3.69 L (3.80-5.40) m/uL Hgb 10.6 L (11.4-16.0) gm/dL Hct 31.7 L (34.0-46.0) % Sodium 135 L (137-145) mmol/L BUN 28 H (7-17) mg/dL Glucose 130 H (74-99) mg/dL POC Glucose (mg/dL) 133 H (70-110) mg/dL Calcium 8.2 L (8.4-10.2) mg/dL 04/21/22 Range/Units 12:14 RBC (3.80-5.40) m/uL Hgb (11.4-16.0) gm/dL Hct (34.0-46.0) % Sodium (137-145) mmol/L BUN (7-17) mg/dL Glucose (74-99) mg/dL POC Glucose (mg/dL) 114 H (70-110) mg/dL Calcium (8.4-10.2) mg/dL Assessment and Plan Assessment: 1. Hypertensive urgency. likely related to volume overload. Repeat Lasix today. Tolerating low-dose Aldactone. also maintained on metoprolol.Blood pressure was better controlled but increased again last night. I will increase the Aldactone and we can add low-dose CARLOS EDUARDO inhibitor's if blood pressure remains elevated. Repeat IV Lasix. 2. Chronic kidney disease stage I secondary to biopsy-proven diabetic nephropathy. 3. Proteinuria secondary to diabetic nephropathy. 4. Type 1 diabetes. 5. Lower extremity edema secondary to nephrotic syndrome. Plan: Add lisinopril Increase Aldactone Repeat IV Lasix If blood pressure is controlled for the rest of the day patient can be discharged today.
[2022-04-21] MEDS: Insulin Aspart (For Pump) 100 UNIT/ML VIAL SQ-PUMP SCH (15:30)
[2022-04-21 16:54] LABS: Glucose,Whole Blood 144 mg/dL (70-110)
[2022-04-21 20:14] LABS: Glucose,Whole Blood 134 mg/dL (70-110)
[2022-04-21] MEDS: CYCLOBENZAPRINE 10 MG TAB PO SCH (20:27)
[2022-04-21] MEDS: ATORVASTATIN 10 MG TAB PO SCH (20:28)
--- NOTE | 2022-04-21 21:07 | P.PN ---
Subjective Progress Note Date: 04/20/22 Patient is a 31-year-old female with a known history of diabetes type 1 on insulin pump, nephrotic syndrome, diabetic nephropathy, asthma, anxiety/depression presents to ER due to concern for high blood pressure. Patient is currently on spironolactone. Patient states that she was tried on multiple blood pressure medications to control blood pressure. Follows with her industrial millwright at [facility]. Patient took her blood pressure at home and SBP found to be in 160s. Patient did get in touch with her industrial millwright and recommended to go to the emergency department. She was complaining of nausea and unable to tolerate oral diet. Also complains of headache. Patient was previously lisinopril was stopped due to hypotension. Later changed to low-dose torsemide which made her nauseated and currently on spironolactone 12.5 mg daily at home. Patient states that she is also having nausea and GERD symptoms and unable to tolerate oral diet for the past 1 week. blood pressure was 173/108 in the ER. She was given a dose of IV hydralazine, Cardizem 120 mg in the ER. She was also tachycardic with heart rate went up to 116. EKG showed sinus rhythm Chest x-ray showed no acute cardiopulmonary process Laboratory data showed WBC 7.0 hemoglobin 10.3 and platelets 208 Sodium 136 potassium 4.8 chloride 103 bicarb is 22 BUN 31 and creatinine 0.82 and blood sugar is 132. Calcium 8.1 AST 82 and ALT 130 alk phos 114 and albumin 2.5 Urinalysis showed 3+ protein 1+ glucose and moderate leukocyte esterase negative. 04/18/2022 Patient is currently lying in the bed. Awake alert and oriented x3. Nausea did improve today. No episodes of vomiting. No complaints of chest pain or shortness of breath. Patient has been afebrile. Leg swelling is improving and was given a dose of IV Lasix as per nephrology recommendations. Patient is being continued on Aldactone and metoprolol 25 mg twice daily. Blood pressure this morning was 133/83 heart rate 95 and saturating at 100% on room air. Cardiology has seen the patient 2D echocardiogram was ordered. Laboratory test showed WBC 5.1 hemoglobin 10.3 and platelets 215 sodium 135 potassium 4.4, chloride 110 and bicarb is 23 BUN 24 and creatinine 0.75 calcium 7.8 AST 48 ALT 2 1 alk phos 100 albumin is 2.1. Urine protein creatinine ratio is 4.1. Nephrology and cardiology is on board. 04/19/2022 Patient is currently sitting in the chair. Awake alert and oriented x3. Feels much improved. No complaints of nausea today. Was able to tolerate oral diet. Otherwise patient is still tachycardic and metoprolol dose increased to 25 mg twice daily. Blood pressure this morning is 165/96 and heart rate 101. Continued on Aldactone 12.5 mg daily. 2D echocardiogram showed normal LV function. Mild MR. Laboratory data showed sodium 136 potassium 5.0 chloride 109 bicarb is 25 BUN 19 and creatinine 0.75 A1c level is 8.0. Patient is on insulin pump. 04/20/2022 Patient is currently sitting in the chair. Awake alert and oriented x3. No complaints of chest pain or shortness of breath. Leg swelling is slightly improved. Otherwise systolic blood pressure remains in 160s. Nausea improved but requiring Zofran as needed. Heart rate is better controlled with metoprolol increased to 3 times daily. Nephrology is considering adding lisinopril. No complaints of headache or dizziness. No fever no chills. Current medications reviewed. Objective - Vital Signs Vital signs: Vital Signs Temp 98.2 F 04/20/22 19:48 Pulse 96 04/20/22 22:52 Resp 18 04/20/22 22:52 BP 182/111 04/20/22 22:52 Pulse Ox 98 04/20/22 22:52 FiO2 Intake & Output 04/20/22 04/20/22 04/21/22 06:59 18:59 06:59 Intake Total 1080 416 540 Balance 1080 416 540 Weight 96.7 kg Intake: Oral 1080 416 540 Other: Voiding Method Toilet Toilet # Bowel Movements 0 - Exam PHYSICAL EXAMINATION: Patient is lying in the bed comfortably, no acute distress, awake alert and oriented.. HEENT: Normocephalic. Neck is supple. Pupils reactive. Nostrils clear. Oral cavity is moist. Neck reveals no JVD, carotid bruits, or thyromegaly. CHEST EXAMINATION: Trachea is central. Symmetrical expansion. Lung hall clear to auscultation and percussion. CARDIAC: Normal S1, S2 with no gallops. No murmurs ABDOMEN: Soft. Bowel sounds present. Nontender. No organomegaly. No abdominal bruits. Extremities: reveal 2+ edema. No clubbing or cyanosis Neurologically awake, alert, oriented x3 with well-coordinated movements. No focal deficits noted Skin: No rash or skin lesions. Psychiatric: Coperative. Nonsuicidal, anxious. Musculoskeletal: No joint swelling or deformity. Normal range of motion. - Labs CBC & Chem 7: 04/21/22 06:05 04/21/22 06:05 Labs: Abnormal Lab Results - Last 24 Hours (Table) 04/20/22 04/20/22 04/20/22 Range/Units 03:05 06:18 06:57 Sodium 136 L (137-145) mmol/L Chloride 109 H (98-107) mmol/L BUN 20 H (7-17) mg/dL Glucose 120 H (74-99) mg/dL POC Glucose (mg/dL) 148 H 133 H (70-110) mg/dL Calcium 8.0 L (8.4-10.2) mg/dL 04/20/22 04/20/22 04/20/22 Range/Units 11:51 16:26 20:20 Sodium (137-145) mmol/L Chloride (98-107) mmol/L BUN (7-17) mg/dL Glucose (74-99) mg/dL POC Glucose (mg/dL) 145 H 171 H 163 H (70-110) mg/dL Calcium (8.4-10.2) mg/dL Assessment and Plan Assessment: Hypertensive urgency on admission/uncontrolled hypertension, improving Nausea Nephrotic syndrome due to diabetic nephropathy s/p renal biopsy at [facility] Uncontrolled Diabetes type 1 insulin pump. a1 c 8.1 Bilateral lower extremity edema Hypoalbuminemia DVT prophylaxis with heparin subcu Plan: Patient is currently Aldactone and metoprolol 25 mg twice daily-increased to TID. Was given a dose of IV Lasix 20 mg x 1 due to leg swelling. Patient was not able to tolerate multiple blood pressure medications previously. Current symptomatic management for nausea and vomiting. Continue to titrate blood pressure medications. Cardiology and nephrology is on board. 2D echocardiogram.Showed normal EF. Discussed with the patient at bedside in detail. Anticipate discharge in the next 24 hours. Time with Patient: Greater than 30
--- NOTE | 2022-04-21 21:11 | P.PN ---
Subjective Progress Note Date: 04/21/22 Patient is a 31-year-old female with a known history of diabetes type 1 on insulin pump, nephrotic syndrome, diabetic nephropathy, asthma, anxiety/depression presents to ER due to concern for high blood pressure. Patient is currently on spironolactone. Patient states that she was tried on multiple blood pressure medications to control blood pressure. Follows with her edi consultant at [facility]. Patient took her blood pressure at home and SBP found to be in 160s. Patient did get in touch with her edi consultant and recommended to go to the emergency department. She was complaining of nausea and unable to tolerate oral diet. Also complains of headache. Patient was previously lisinopril was stopped due to hypotension. Later changed to low-dose torsemide which made her nauseated and currently on spironolactone 12.5 mg daily at home. Patient states that she is also having nausea and GERD symptoms and unable to tolerate oral diet for the past 1 week. blood pressure was 173/108 in the ER. She was given a dose of IV hydralazine, Cardizem 120 mg in the ER. She was also tachycardic with heart rate went up to 116. EKG showed sinus rhythm Chest x-ray showed no acute cardiopulmonary process Laboratory data showed WBC 7.0 hemoglobin 10.3 and platelets 208 Sodium 136 potassium 4.8 chloride 103 bicarb is 22 BUN 31 and creatinine 0.82 and blood sugar is 132. Calcium 8.1 AST 82 and ALT 130 alk phos 114 and albumin 2.5 Urinalysis showed 3+ protein 1+ glucose and moderate leukocyte esterase negative. 04/18/2022 Patient is currently lying in the bed. Awake alert and oriented x3. Nausea did improve today. No episodes of vomiting. No complaints of chest pain or shortness of breath. Patient has been afebrile. Leg swelling is improving and was given a dose of IV Lasix as per nephrology recommendations. Patient is being continued on Aldactone and metoprolol 25 mg twice daily. Blood pressure this morning was 133/83 heart rate 95 and saturating at 100% on room air. Cardiology has seen the patient 2D echocardiogram was ordered. Laboratory test showed WBC 5.1 hemoglobin 10.3 and platelets 215 sodium 135 potassium 4.4, chloride 110 and bicarb is 23 BUN 24 and creatinine 0.75 calcium 7.8 AST 48 ALT 2 1 alk phos 100 albumin is 2.1. Urine protein creatinine ratio is 4.1. Nephrology and cardiology is on board. 04/19/2022 Patient is currently sitting in the chair. Awake alert and oriented x3. Feels much improved. No complaints of nausea today. Was able to tolerate oral diet. Otherwise patient is still tachycardic and metoprolol dose increased to 25 mg twice daily. Blood pressure this morning is 165/96 and heart rate 101. Continued on Aldactone 12.5 mg daily. 2D echocardiogram showed normal LV function. Mild MR. Laboratory data showed sodium 136 potassium 5.0 chloride 109 bicarb is 25 BUN 19 and creatinine 0.75 A1c level is 8.0. Patient is on insulin pump. 04/20/2022 Patient is currently sitting in the chair. Awake alert and oriented x3. No complaints of chest pain or shortness of breath. Leg swelling is slightly improved. Otherwise systolic blood pressure remains in 160s. Nausea improved but requiring Zofran as needed. Heart rate is better controlled with metoprolol increased to 3 times daily. Nephrology is considering adding lisinopril. No complaints of headache or dizziness. No fever no chills. 04/21/2022 Patient is currently resting in bed. Awake alert oriented x3. No complaints of chest pain or shortness of breath. Patient still having nausea and no episodes of vomiting. Patient is being continued Aldactone dose increased to 25 mg p.o. daily and metoprolol 20 mg 3 times daily and Lasix 20 mg twice daily. Lisinopril 5 mg p.o. daily was added. Blood pressure was 144/87 this morning. Laboratory data showed WBC 7.0 hemoglobin 10.6 and platelets 220 Sodium 135 potassium 4.7 chloride 107 bicarb is 23 BUN 28 and creatinine 0.[address] calcium 8.2. Beta-hCG level is less than 2.4. Current medications reviewed. Objective - Vital Signs Vital signs: Vital Signs Temp 97.9 F 04/21/22 19:56 Pulse 89 04/21/22 19:56 Resp 16 04/21/22 19:56 BP 109/77 04/21/22 19:56 Pulse Ox 99 04/21/22 19:56 FiO2 Intake & Output 04/21/22 04/21/22 04/22/22 06:59 18:59 06:59 Intake Total 1080 480 Output Total 1100 Balance 1080 -620 Weight 95.5 kg Intake: Oral 1080 480 Output: Urine 1100 Other: Voiding Method Toilet Toilet # Voids 1 - Exam PHYSICAL EXAMINATION: Patient is lying in the bed comfortably, no acute distress, awake alert and oriented.. HEENT: Normocephalic. Neck is supple. Pupils reactive. Nostrils clear. Oral cavity is moist. Neck reveals no JVD, carotid bruits, or thyromegaly. CHEST EXAMINATION: Trachea is central. Symmetrical expansion. Lung hall clear to auscultation and percussion. CARDIAC: Normal S1, S2 with no gallops. No murmurs ABDOMEN: Soft. Bowel sounds present. Nontender. No organomegaly. No abdominal bruits. Extremities: reveal 2+ edema. No clubbing or cyanosis Neurologically awake, alert, oriented x3 with well-coordinated movements. No focal deficits noted Skin: No rash or skin lesions. Psychiatric: Coperative. Nonsuicidal, anxious. Musculoskeletal: No joint swelling or deformity. Normal range of motion. - Labs CBC & Chem 7: 04/21/22 06:05 04/21/22 06:05 Labs: Abnormal Lab Results - Last 24 Hours (Table) 04/21/22 04/21/22 04/21/22 Range/Units 03:19 06:05 06:05 RBC 3.69 L (3.80-5.40) m/uL Hgb 10.6 L (11.4-16.0) gm/dL Hct 31.7 L (34.0-46.0) % Sodium 135 L (137-145) mmol/L BUN 28 H (7-17) mg/dL Glucose 130 H (74-99) mg/dL POC Glucose (mg/dL) 124 H (70-110) mg/dL Calcium 8.2 L (8.4-10.2) mg/dL 04/21/22 04/21/22 04/21/22 Range/Units 06:26 12:14 16:50 RBC (3.80-5.40) m/uL Hgb (11.4-16.0) gm/dL Hct (34.0-46.0) % Sodium (137-145) mmol/L BUN (7-17) mg/dL Glucose (74-99) mg/dL POC Glucose (mg/dL) 133 H 114 H 144 H (70-110) mg/dL Calcium (8.4-10.2) mg/dL 04/21/22 Range/Units 20:13 RBC (3.80-5.40) m/uL Hgb (11.4-16.0) gm/dL Hct (34.0-46.0) % Sodium (137-145) mmol/L BUN (7-17) mg/dL Glucose (74-99) mg/dL POC Glucose (mg/dL) 134 H (70-110) mg/dL Calcium (8.4-10.2) mg/dL Assessment and Plan Assessment: Hypertensive urgency on admission/uncontrolled hypertension, improving Nausea Nephrotic syndrome due to diabetic nephropathy s/p renal biopsy at [facility] Uncontrolled Diabetes type 1 insulin pump. a1 c 8.1 Bilateral lower extremity edema Hypoalbuminemia DVT prophylaxis with heparin subcu Plan: Patient is currently Aldactone and metoprolol 25 mg twice daily-increased to TID. Started on Lasix 20 mg p.o twice daily and lisinopril 5 mg daily. Nephrology is on board. Patient was not able to tolerate multiple blood pressure medications previously. Patient continues to having nausea and longstanding history of diabetes, will consult GI for further evaluation.Continue with Pepcid and will hold iron supplementation. Continue to titrate blood pressure medications. 2D echocardiogram.Showed normal EF. Discussed with the patient at bedside in detail. Anticipate discharge in the next 24 hours. Time with Patient: Greater than 30
[2022-04-21] MEDS: diphenhydrAMINE 25 MG CAP PO PRN (23:47)
[2022-04-22] MEDS: HEPARIN SODIUM,PORCINE/PF 5,000 UNIT/0.5 ML SYRINGE SQ SCH ×2 (00:22→07:31)
[2022-04-22 02:02] LABS: Glucose,Whole Blood 132 mg/dL (70-110)
[2022-04-22 06:00] LABS: Glucose,Whole Blood 139 mg/dL (70-110)
[2022-04-22 07:15] LABS: HCT 31.4 % (34.0-46.0); HGB 10.6 gm/dL (11.4-16.0); MCH 29.3 pg (25.0-35.0); MCHC 33.9 g/dL (31.0-37.0); MCV 86.6 fL (80.0-100.0); Mean Platelet Volume 7.7; Platelet Count 220 k/uL (150-450); RBC 3.63 m/uL (3.80-5.40); RDW 13.4 % (11.5-15.5); WBC 7.7 k/uL (3.8-10.6)
[2022-04-22 07:29] LABS: African American GFR (CKD) >90 (>60 ml/min/1.73 sqM); Anion Gap 4 mmol/L; Blood Urea Nitrogen 34 mg/dL (7-17); Calcium 8.3 mg/dL (8.4-10.2); Carbon Dioxide 25 mmol/L (22-30); Chloride 107 mmol/L (98-107); Glucose 146 mg/dL (74-99); Non-African American GFR(CKD) 82 (>60 ml/min/1.73 sqM); Potassium 4.8 mmol/L (3.5-5.1); Sodium 136 mmol/L (137-145)
[2022-04-22] MEDS: METOPROLOL TARTRATE 25 MG TAB PO SCH (07:30)
[2022-04-22] MEDS: lisinopriL 5 MG TAB PO SCH (07:30)
[2022-04-22] MEDS: FAMOTIDINE 20 MG TAB PO SCH (07:30)
[2022-04-22] MEDS: CHOLECALCIFEROL 25 MCG (1000 IU) TABLET PO SCH (07:31)
[2022-04-22] MEDS: FUROSEMIDE 20 MG TAB PO SCH (07:31)
[2022-04-22 08:14] LABS: Albumin 2.2 g/dL (3.5-5.0); Bilirubin, Delta 0.2 mg/dL (0.0-0.2); Total Bilirubin 0.2 mg/dL (0.2-1.3); Total Protein 4.8 g/dL (6.3-8.2)
[2022-04-22] MEDS ORDERED: SPIRONOLACTONE 25 MG TAB PO SCH (09:00)
[2022-04-22 09:36] VITALS: RESP 16
[2022-04-22] MEDS: INSPUCOR MISCELLANE PRN (10:43)
--- NOTE | 2022-04-22 11:02 | P.CONS ---
History of Present Illness - Reason for Consult Consult date: 04/22/22 Intractable nausea and vomiting Requesting physician: Morena Mcghee - Chief Complaint Hypertension - History of Present Illness This is a pleasant 31-year-old female with a past medical history including type 1 diabetes mellitus diagnosed age 16, asthma, chronic kidney disease, hypertension and GERD who presented to the emergency department with complaints of elevated blood pressure. Admission patient's blood pressures were running 150s over 100s. She follows with acid [facility]. Patient was recently started on spironolactone however after 3 days patient was not feeling well and stopped the medication. Patient was also in the last month given Lyrica for diabetic peripheral neuropathy however did not do well with that medication that was discontinued as well. Patient denies any other new medications. Patient has also been suffering with nausea and dizziness in the mornings over the last 1 month duration. [facility] was consulted for intractable nausea and vomiting. Patient states she has been nauseated for the last 1 month duration however no vomiting. She's been having increased heartburn and indigestion with decreased appetite and ability to eat. She is unsure she's had any weight loss as patient has lower extremity edema and states that she goes up and down with her swelling. She also is complaining of changes with her bowel pattern where she will have incontinence of stool and then constipation at times. Denies any abdominal pain other than some abdominal cramping when she has having the loose stool and constipation. States that she has been taking omeprazole with little help for the indigestion and heartburn. She states that about 11 years ago she had an EGD done with Dr. Taylor and was told she had a hiatal hernia. At that time apparently patient was having some abdominal pain and after the EGD had improved. Patient is concerned with abdominal pain and bowel pattern changes, as her father has a history of Crohn's disease. Denies any recent fevers, chills, bodyaches, no shortness of breath or chest pain. She has lower extremity swelling which she states they have started her on Lasix. She also was started on Aldactone and metoprolol this admission. Nephrology is following and adjusting medications. Patient's blood pressures are still somewhat labile in the 140s over 80s to 100s with some dropping down to 109/77. Admitting labs patient had some mild elevation of AST and ALT, no repeat labs since that time. on today's labs WBC 7.7 hemoglobin 10.6 hematocrit 31 platelet count 220,000 sodium 136 potassium 4.8 BUN 34 creatinine 0.9 glucose 146 total bilirubin 0.2 AST 69 ALT 91 alkaline phosphatase 129 Review of Systems REVIEW OF SYSTEMS: CARDIOPULMONARY: No chest pain or shortness of breath. Dizziness in the morning. Elevated blood pressure lower extremity edema Gastrointestinal: Acid reflux, indigestion. Nausea with no vomiting. Bowel pattern changes with some intermittent diarrhea with bowel incontinence as well as constipation. No hematemesis, coffee-ground emesis. No rectal bleeding, or melena. GENITOURINARY: No dysuria or hematuria. MUSCULOSKELETAL: Reports normal range of motion., Joint pain. SKIN: No rashes. No jaundice. ENDOCRINE: No chills, fevers. No excessive weight gain or loss. No polydipsia or polyuria. PSYCHIATRIC: Unremarkable. NEUROLOGY: No change in mental status. Denies dizziness, headache. ENT: Vision unremarkable. CONSTITUTIONAL: No recent weight loss. No fever, chills, night sweats. Past Medical History Past Medical History: Asthma, Diabetes Mellitus, GERD/Reflux, Renal Disease, Skin Disorder Additional Past Medical History / Comment(s): hx. hiatal hernia, wounds in groin area, buttocks-thought was ingrown hairs, diabetic kidney disease History of Any Multi-Drug Resistant Organisms: MRSA Year Discovered:: 2009 MDRO Source:: unknown Past Surgical History: Section Additional Past Surgical History / Comment(s): cervical abblation Past Anesthesia/Blood Transfusion Reactions: No Reported Reaction, Motion Sickness Additional Past Anesthesia/Blood Transfusion Reaction / Comm: Pt has clausterphobia. Kidney biopsy Past Psychological History: Anxiety, Depression Smoking Status: Never smoker Past Alcohol Use History: Occasional Past Drug Use History: None Reported - Past Family History Mother Family Medical History: Thyroid Disorder Additional Family Medical History / Comment(s): gestational diabetes Father Additional Family Medical History / Comment(s): crohnes disease Medications and Allergies Home Medications Medication Instructions Recorded Confirmed Type Insulin Aspart (For Pump) [NovoLOG 0.01 unit SQ-PUMP CONTINUOUS MDD 11/08/17 04/17/22 History (For Pump)] 50-70 UNITS Atorvastatin [Lipitor] 10 mg PO HS 04/15/22 04/17/22 History Cyclobenzaprine [Flexeril] 10 mg PO HS 04/15/22 04/17/22 History Ferrous Sulfate [Feosol] 325 mg PO BID 04/15/22 04/17/22 History Insulin Glargine,Hum.rec.anlog 20 unit SQ DAILY PRN 04/15/22 04/17/22 History [Basaglmarty Landerospen U-100] Cholecalciferol [Vitamin D3 (25 25 mcg PO DAILY #30 tab 04/18/22 Rx Mcg = 1000 Iu)] Ondansetron Odt [Zofran Odt] 4 mg PO Q8HR PRN 3 Days #9 tab 04/18/22 Rx Furosemide [Lasix] 20 mg PO BID@0900,1600 #60 tab 04/22/22 Rx Metoprolol Tartrate [Lopressor] 25 mg PO TID #90 tab 04/22/22 Rx Pantoprazole [Protonix] 40 mg PO DAILY #30 tab 04/22/22 Rx Spironolactone [Aldactone] 25 mg PO DAILY #30 tab 04/22/22 Rx lisinopriL [Zestril] 5 mg PO DAILY #30 tab 04/22/22 Rx Allergies Allergy/AdvReac Type Severity Reaction Status Date / Time cephalexin [From Keflex] Allergy Swelling Verified 04/17/22 11:46 (tongue) Physical Exam Vitals: Vital Signs Temp Pulse Resp BP Pulse Ox 04/22/22 03:59 98 F 100 17 145/89 98 04/22/22 00:00 98.1 F 91 16 149/100 100 04/21/22 19:56 97.9 F 89 16 109/77 99 04/21/22 16:00 97.5 F L 98 18 126/86 98 04/21/22 12:00 97.3 F L 91 16 139/93 99 Intake and Output 04/21/22 04/22/22 04/22/22 22:59 06:59 14:59 Intake Total 240 Output Total 500 Balance -260 Intake: Oral 240 Output: Urine 500 Other: Voiding Method Toilet Toilet # Voids 2 General appearance: The patient is alert, oriented, appears in no acute distress. HET: Head is normocephalic and atraumatic. Conjunctiva pink. Sclera anicteric. Neck: Supple without lymphadenopathy. Abdomen: Soft, mild abdominal tenderness, nondistended with bowel sounds. No guarding or rigidity. Extremities: Normal skin color and turgor. No pedal edema Skin: No rashes, no jaundice Neurological: No focal deficits. Alert and oriented. Results CBC & Chem 7: 04/22/22 06:47 04/22/22 06:47 Labs: Abnormal Lab Results - Last 24 Hours (Table) 04/21/22 04/21/22 04/21/22 Range/Units 12:14 16:50 20:13 RBC (3.80-5.40) m/uL Hgb (11.4-16.0) gm/dL Hct (34.0-46.0) % Sodium (137-145) mmol/L BUN (7-17) mg/dL Glucose (74-99) mg/dL POC Glucose (mg/dL) 114 H 144 H 134 H (70-110) mg/dL Calcium (8.4-10.2) mg/dL AST (14-36) U/L ALT (4-34) U/L Alkaline Phosphatase (38-126) U/L Total Protein (6.3-8.2) g/dL Albumin (3.5-5.0) g/dL 04/22/22 04/22/22 04/22/22 Range/Units 02:01 05:59 06:47 RBC (3.80-5.40) m/uL Hgb (11.4-16.0) gm/dL Hct (34.0-46.0) % Sodium 136 L (137-145) mmol/L BUN 34 H (7-17) mg/dL Glucose 146 H (74-99) mg/dL POC Glucose (mg/dL) 132 H 139 H (70-110) mg/dL Calcium 8.3 L (8.4-10.2) mg/dL AST (14-36) U/L ALT (4-34) U/L Alkaline Phosphatase (38-126) U/L Total Protein (6.3-8.2) g/dL Albumin (3.5-5.0) g/dL 04/22/22 04/22/22 Range/Units 06:47 06:47 RBC 3.63 L (3.80-5.40) m/uL Hgb 10.6 L (11.4-16.0) gm/dL Hct 31.4 L (34.0-46.0) % Sodium (137-145) mmol/L BUN (7-17) mg/dL Glucose (74-99) mg/dL POC Glucose (mg/dL) (70-110) mg/dL Calcium (8.4-10.2) mg/dL AST 69 H (14-36) U/L ALT 91 H (4-34) U/L Alkaline Phosphatase 129 H (38-126) U/L Total Protein 4.8 L (6.3-8.2) g/dL Albumin 2.2 L (3.5-5.0) g/dL Assessment and Plan (1) Nausea without vomiting Narrative/Plan: 31-year-old female with a history of type 1 diabetes mellitus diagnosed at 16 years old, chronic kidney disease, hypertension, GERD and has presented to the emergency department with complaints of high blood pressure. However patient is also been complaining of nausea over the last 1 month duration with increased acid reflux and indigestion with decreased appetite and eating. Patient denies any vomiting to states that she is nauseous mostly in the morning. She states she has a history of GERD and underwent an EGD about 11 years ago was told she had a hiatal hernia. Also having changes in her bowel patterns with diarrhea and constipation. With a family history of Crohn's disease. Unclear etiology of nausea could be related to recent medication changes and also need to consid er possible diabetic gastroparesis. Recommend resolved 40 mg twice a day. Follow-up in 2-4 weeks with gastroenterology. Discuss with patient considering endoscopic evaluation including EGD and colonoscopy. This certainly can be done as an outpatient. Patient is agreeable. Current Visit: Yes Status: Acute Code(s): R11.0 - NAUSEA SNOMED Code(s): 707337223 (2) Change in bowel habit Current Visit: Yes Status: Acute Code(s): R19.4 - CHANGE IN BOWEL HABIT SNOMED Code(s): 05421240 (3) Hypertensive urgency Current Visit: Yes Status: Acute Code(s): I16.0 - HYPERTENSIVE URGENCY SNOMED Code(s): 230709003 (4) Type 1 diabetes mellitus Current Visit: Yes Status: Acute Code(s): E10.9 - TYPE 1 DIABETES MELLITUS WITHOUT COMPLICATIONS SNOMED Code(s): 14150313 (5) Bilateral lower extremity edema Current Visit: No Status: Acute Code(s): R60.0 - LOCALIZED EDEMA SNOMED Code(s): 212969172 (6) CKD (chronic kidney disease) Current Visit: No Status: Acute Code(s): N18.9 - CHRONIC KIDNEY DISEASE, UNSPECIFIED SNOMED Code(s): 984598533 Plan: 1. Continue symptomatic and supportive care 2. Consistent carbohydrate diet 3. Antiemetics as needed 4. Recommend omeprazole 40 mg twice a day 5. Patient instructed to follow-up with gastroenterology in 2-4 weeks. Consider endoscopic evaluation, this can be done as an outpatient. Thank you for this consultation, patient is cleared for discharge from gastroenterology. Dr. Greyson Taylor I agree with the dictator's note, documented as a scribe by Matilda Horne.
[2022-04-22 11:26] VITALS: BP 126/85; PULSE 85; TEMP 97.6
[2022-04-22 11:39] LABS: Glucose,Whole Blood 135 mg/dL (70-110)
[2022-04-22] MEDS ORDERED: FUROSEMIDE 10 MG/ML 4 ML VIAL IV STA (11:49)
--- NOTE | 2022-04-22 13:07 | P.PN ---
Subjective patient is seen for follow-up for uncontrolled hypertension, proteinuria and nephrotic syndrome. Patient has1 diabetes diagnosed at age of 16. Status post kidney biopsy at [facility] which showed diabetic nephropathy. Patient follows with nephrology out of [facility]. She was admitted to the hospital with uncontrolled hypertension which is unusual for her as her blood pressure usually stays on the lower side. Patient did admit to increased lower extremity swelling over the last few days prior to admission. Patient has been restarted on Aldactone which she had stopped due to significant dizziness and lightheadedness. She is tolerating the Aldactone fairly well. Metoprolol has also been added. Status post IV Lasix Blood pressure is much improved now. Volume status has improved as well. Patient is tolerating lisinopril, Lasix, Aldactone and metoprolol fairly well. test was negative Objective - Vital Signs Vital signs: Vital Signs Temp 97.6 F 04/22/22 11:23 Pulse 85 04/22/22 11:23 Resp 16 04/22/22 11:23 BP 126/85 04/22/22 11:23 Pulse Ox 98 04/22/22 11:23 FiO2 Intake & Output 04/21/22 04/22/22 04/22/22 18:59 06:59 18:59 Intake Total 480 476 Output Total 1100 1000 Balance -620 -524 Intake: Oral 480 476 Output: Urine 1100 1000 Other: Voiding Method Toilet Toilet Toilet # Voids 1 2 1 - Exam awake, comfortable, in no acute distress Examination of the heart S1 and S2 Examination of the lungs bilateral breath sounds are heard Abdomen is soft nontender Examination of the lower extremities shows 1+ edema , improved MEDICAL DIRECTOR/HEAD TEAM PHYSICIAN exam grossly intact - Labs CBC & Chem 7: 04/22/22 06:47 04/22/22 06:47 Labs: Abnormal Lab Results - Last 24 Hours (Table) 04/21/22 04/21/22 04/22/22 Range/Units 16:50 20:13 02:01 RBC (3.80-5.40) m/uL Hgb (11.4-16.0) gm/dL Hct (34.0-46.0) % Sodium (137-145) mmol/L BUN (7-17) mg/dL Glucose (74-99) mg/dL POC Glucose (mg/dL) 144 H 134 H 132 H (70-110) mg/dL Calcium (8.4-10.2) mg/dL AST (14-36) U/L ALT (4-34) U/L Alkaline Phosphatase (38-126) U/L Total Protein (6.3-8.2) g/dL Albumin (3.5-5.0) g/dL 04/22/22 04/22/22 04/22/22 Range/Units 05:59 06:47 06:47 RBC 3.63 L (3.80-5.40) m/uL Hgb 10.6 L (11.4-16.0) gm/dL Hct 31.4 L (34.0-46.0) % Sodium 136 L (137-145) mmol/L BUN 34 H (7-17) mg/dL Glucose 146 H (74-99) mg/dL POC Glucose (mg/dL) 139 H (70-110) mg/dL Calcium 8.3 L (8.4-10.2) mg/dL AST (14-36) U/L ALT (4-34) U/L Alkaline Phosphatase (38-126) U/L Total Protein (6.3-8.2) g/dL Albumin (3.5-5.0) g/dL 04/22/22 04/22/22 Range/Units 06:47 11:35 RBC (3.80-5.40) m/uL Hgb (11.4-16.0) gm/dL Hct (34.0-46.0) % Sodium (137-145) mmol/L BUN (7-17) mg/dL Glucose (74-99) mg/dL POC Glucose (mg/dL) 135 H (70-110) mg/dL Calcium (8.4-10.2) mg/dL AST 69 H (14-36) U/L ALT 91 H (4-34) U/L Alkaline Phosphatase 129 H (38-126) U/L Total Protein 4.8 L (6.3-8.2) g/dL Albumin 2.2 L (3.5-5.0) g/dL Assessment and Plan Assessment: 1. Hypertensive urgency. likely related to volume overload. Repeat Lasix today. Tolerating low-dose Aldactone. also maintained on metoprolol. Blood pressure is better controlled with Aldactone at 25 mg daily, Lasix and metoprolol. Lisinopril was also added and patient is tolerating it well. . 2. Chronic kidney disease stage I secondary to biopsy-proven diabetic nephropathy. 3. Proteinuria secondary to diabetic nephropathy. 4. Type 1 diabetes. 5. Lower extremity edema secondary to nephrotic syndrome. Plan: Continue with lisinopril, Aldactone, Lasix, metoprolol Increase Aldactone If blood pressure is controlled for the rest of the day patient can be discharged today.
--- NOTE | 2022-05-07 12:06 | P.DS ---
Providers Date of admission: 04/21/22 07:55 Expected date of discharge: 04/22/22 Attending physician: Morena Mcghee Consults: 04/17/22 14:32 Consult Physician Routine Consulting Provider: Lopez Taylor Consult Reason/Comments: htn Do you want consulting provider notified?: Yes 04/18/22 00:42 Consult Physician Routine Consulting Provider: Raffy Rodriguez Consult Reason/Comments: Nephrotic syndrome Do you want consulting provider notified?: Yes, Notify in am 04/21/22 13:45 Consult Physician Urgent Consulting Provider: Thelma Taylor Consult Reason/Comments: intractable nausea Do you want consulting provider notified?: Yes Primary care physician: Mohit Curran [facility] Course: Discharge diagnosis Hypertensive urgency on admission/uncontrolled hypertension, improving Intractable Nausea improved now Nephrotic syndrome due to diabetic nephropathy s/p renal biopsy at [facility] Uncontrolled Diabetes type 1 insulin pump. a1 c 8.1 Bilateral lower extremity edema Hypoalbuminemia DVT prophylaxis with heparin subcu Hospital course Patient is a 31-year-old female with a known history of diabetes type 1 on insulin pump, nephrotic syndrome, diabetic nephropathy, asthma, anxiety/depression presents to ER due to concern for high blood pressure. Patient is currently on spironolactone. Patient states that she was tried on multiple blood pressure medications to control blood pressure. Follows with her functional tester typewriters at [facility]. Patient took her blood pressure at home and SBP found to be in 160s. Patient did get in touch with her functional tester type[employer] and recommended to go to the emergency department. She was complaining of nausea and unable to tolerate oral diet. Also complains of headache. Patient was previously lisinopril was stopped due to hypotension. Later changed to low-dose torsemide which made her nauseated and currently on spironolactone 12.5 mg daily at home. Patient states that she is also having nausea and GERD symptoms and unable to tolerate oral diet for the past 1 week. blood pressure was 173/108 in the ER. She was given a dose of IV hydralazine, Cardizem 120 mg in the ER. She was also tachycardic with heart rate went up to 116. EKG showed sinus rhythm Chest x-ray showed no acute cardiopulmonary process Laboratory data showed WBC 7.0 hemoglobin 10.3 and platelets 208 Sodium 136 potassium 4.8 chloride 103 bicarb is 22 BUN 31 and creatinine 0.82 and blood sugar is 132. Calcium 8.1 AST 82 and ALT 130 alk phos 114 and albumin 2.5 Urinalysis showed 3+ protein 1+ glucose and moderate leukocyte esterase negat frances. 04/18/2022 Patient is currently lying in the bed. Awake alert and oriented x3. Nausea did improve today. No episodes of vomiting. No complaints of chest pain or shortness of breath. Patient has been afebrile. Leg swelling is improving and was given a dose of IV Lasix as per nephrology recommendations. Patient is being continued on Aldactone and metoprolol 25 mg twice daily. Blood pressure this morning was 133/83 heart rate 95 and saturating at 100% on room air. Cardiology has seen the patient 2D echocardiogram was ordered. Laboratory test showed WBC 5.1 hemoglobin 10.3 and platelets 215 sodium 135 potassium 4.4, chloride 110 and bicarb is 23 BUN 24 and creatinine 0.75 calcium 7.8 AST 48 ALT 2 1 alk phos 100 albumin is 2.1. Urine protein creatinine ratio is 4.1. Nephrology and cardiology is on board. 04/19/2022 Patient is currently sitting in the chair. Awake alert and oriented x3. Feels much improved. No complaints of nausea today. Was able to tolerate oral diet. Otherwise patient is still tachycardic and metoprolol dose increased to 25 mg twice daily. Blood pressure this morning is 165/96 and heart rate 101. Continued on Aldactone 12.5 mg daily. 2D echocardiogram showed normal LV function. Mild MR. Laboratory data showed sodium 136 potassium 5.0 chloride 109 bicarb is 25 BUN 19 and creatinine 0.75 A1c level is 8.0. Patient is on insulin pump. 04/20/2022 Patient is currently sitting in the chair. Awake alert and oriented x3. No complaints of chest pain or shortness of breath. Leg swelling is slightly improved. Otherwise systolic blood pressure remains in 160s. Nausea improved but requiring Zofran as needed. Heart rate is better controlled with metoprolol increased to 3 times daily. Nephrology is considering adding lisinopril. No complaints of headache or dizziness. No fever no chills. 04/21/2022 Patient is currently resting in bed. Awake alert oriented x3. No complaints of chest pain or shortness of breath. Patient still having nausea and no episodes of vomiting. Patient is being continued Aldactone dose increased to 25 mg p.o. daily and metoprolol 20 mg 3 times daily and Lasix 20 mg twice daily. Lisinopril 5 mg p.o. daily was added. Blood pressure was 144/87 this morning. Laboratory data showed WBC 7.0 hemoglobin 10.6 and platelets 220 Sodium 135 potassium 4.7 chloride 107 bicarb is 23 BUN 28 and creatinine 0.76 and calcium 8.2. Beta-hCG level is less than 2.4. Next line 04/22/2022 Patient is currently resting in bed. Awake O 3. Blood pressure is better controlled. No other acute overnight issues. Patient is able to tolerate oral diet. Seen by gastrology recommends outpatient follow-up. Patient is also cleared from nephrology standpoint. Continue with current blood pressure medications and follow up as an outpatient. Patient was recommended to follow with her primary functional tester typewriters. Patient would like to be discharged home now. Discharge medications reconciliation was done and new prescriptions were sent to pharmacy. PHYSICAL EXAMINATION: Patient is lying in the bed comfortably, no acute distress, awake alert and oriented.. HEENT: Normocephalic. Neck is supple. Pupils reactive. Nostrils clear. Oral cavity is moist. Neck reveals no JVD, carotid bruits, or thyromegaly. CHEST EXAMINATION: Trachea is central. Symmetrical expansion. Lung hall clear to auscultation and percussion. CARDIAC: Normal S1, S2 with no gallops. No murmurs ABDOMEN: Soft. Bowel sounds present. Nontender. No organomegaly. No abdominal bruits. Extremities: reveal 2+ edema. No clubbing or cyanosis Neurologically awake, alert, oriented x3 with well-coordinated movements. No focal deficits noted Skin: No rash or skin lesions. Psychiatric: Coperative. Nonsuicidal, anxious. Musculoskeletal: No joint swelling or deformity. Normal range of motion. Vital signs: Vital Signs Temp 97.6 F 04/22/22 11:23 Pulse 85 04/22/22 11:23 Resp 16 04/22/22 11:23 BP 126/85 04/22/22 11:23 Pulse Ox 98 04/22/22 11:23 FiO2 Intake & Output 04/21/22 04/22/22 04/22/22 18:59 06:59 18:59 Intake Total 480 476 Output Total 1100 1000 Balance -620 -524 Intake: Oral 480 476 Output: Urine 1100 1000 Other: Voiding Method Toilet Toilet Toilet # Voids 1 2 1 Total time taken greater than 35 minutes including 18 minutes for counseling and coordination of care. Patient Condition at Discharge: Stable Plan - Discharge Summary Discharge Rx Participant: No New Discharge Prescriptions: New Furosemide [Lasix] 20 mg PO BID@0900,1600 #60 tab lisinopriL [Zestril] 5 mg PO DAILY #30 tab Cholecalciferol [Vitamin D3 (25 Mcg = 1000 Iu)] 25 mcg PO DAILY #30 tab Ondansetron Odt [Zofran Odt] 4 mg PO Q8HR PRN 3 Days #9 tab PRN Reason: Nausea Spironolactone [Aldactone] 25 mg PO DAILY #30 tab Metoprolol Tartrate [Lopressor] 25 mg PO TID #90 tab Pantoprazole [Protonix] 40 mg PO DAILY #30 tab Continue Insulin Aspart (For Pump) [NovoLOG (For Pump)] 0.01 unit SQ-PUMP CONTINUOUS MDD 50-70 UNITS Atorvastatin [Lipitor] 10 mg PO HS Cyclobenzaprine [Flexeril] 10 mg PO HS Ferrous Sulfate [Feosol] 325 mg PO BID Insulin Glargine,Hum.rec.anlog [Basaglar Kwikpen U-100] 20 unit SQ DAILY PRN PRN Reason: IF NOVOLOG PUMP FAILS Discontinued Spironolactone [Aldactone] 12.5 mg PO DAILY Discharge Medication List Insulin Aspart (For Pump) [NovoLOG (For Pump)] 0.01 unit SQ-PUMP CONTINUOUS MDD 50-70 UNITS 11/08/17 [History] Atorvastatin [Lipitor] 10 mg PO HS 04/15/22 [History] Cyclobenzaprine [Flexeril] 10 mg PO HS 04/15/22 [History] Ferrous Sulfate [Feosol] 325 mg PO BID 04/15/22 [History] Insulin Glargine,Hum.rec.anlog [Basaglar Kwikpen U-100] 20 unit SQ DAILY PRN 04/15/22 [History] Cholecalciferol [Vitamin D3 (25 Mcg = 1000 Iu)] 25 mcg PO DAILY #30 tab 04/18/22 [Rx] Ondansetron Odt [Zofran Odt] 4 mg PO Q8HR PRN 3 Days #9 tab 04/18/22 [Rx] Furosemide [Lasix] 20 mg PO BID@0900,1600 #60 tab 04/22/22 [Rx] Metoprolol Tartrate [Lopressor] 25 mg PO TID #90 tab 04/22/22 [Rx] Pantoprazole [Protonix] 40 mg PO DAILY #30 tab 04/22/22 [Rx] Spironolactone [Aldactone] 25 mg PO DAILY #30 tab 04/22/22 [Rx] lisinopriL [Zestril] 5 mg PO DAILY #30 tab 04/22/22 [Rx] Follow up Appointment(s)/Referral(s): Mohit Curran MD [Primary Care Provider] - 1-2 days Thelma Taylor MD [STAFF PHYSICIAN] - 2 Weeks Patient Instructions/Handouts: Hypertension (DC) Discharge Disposition: HOME SELF-CARE
== END 2022-04-22 13:44 | disposition home or self-care (01) ==
LOC: EC 11:26 → 4SSUR 14:33 → 3SCARD 14:53 → OBSVTOIN 04-21 07:55 → INTOOBSV 04-21 07:55 → UNDODISIN 04-22 13:44
PROVIDERS: ADMIT Internal Medicine; ATTEND Internal Medicine
DX: I16.0 Hypertensive urgency (principal); E88.09 Other disorders of plasma-protein metabolism, not elsewhere classified; E10.21 Type 1 diabetes mellitus with diabetic nephropathy; E10.22 Type 1 diabetes mellitus with diabetic chronic kidney disease; N18.1 Chronic kidney disease, stage 1; I10 Essential (primary) hypertension; F41.9 Anxiety disorder, unspecified; J45.909 Unspecified asthma, uncomplicated; I08.1 Rheumatic disorders of both mitral and tricuspid valves; F32.A Depression, unspecified; K21.9 Gastro-esophageal reflux disease without esophagitis; I89.0 Lymphedema, not elsewhere classified; I87.2 Venous insufficiency (chronic) (peripheral); Z79.4 Long term (current) use of insulin; Z79.899 Other long term (current) drug therapy; Z96.41 Presence of insulin pump (external) (internal); Z83.49 Family history of other endocrine, nutritional and metabolic diseases
CPT/HCPCS: 96376 ×6; 96372 ×3; 96375 ×3; 96374; 99284; 36415; 93005; 93306; 82570; 80053 ×2; 80048 ×4; 80076; 84156; 85025 ×3; 85027; 81001; 84702; 83036; 71046; G0378 ×7; J0360; J1940 ×5; J2405 ×4; J1644 ×3

== ENCOUNTER 2022-07-11 06:57 | Day surgery (SDC) | payer BC ==
[2022-07-10 10:04] VITALS: BMI 29.9
[~2022-07-11 06:57] MED LIST: LACTATED RINGERS 1,000 ML IV SCH
[2022-07-11 08:00] LABS: Glucose,Whole Blood 226 mg/dL (70-110)
[2022-07-11 08:02] VITALS: TEMP 97
[2022-07-11] MEDS ORDERED: ONDANSETRON 4 MG/2 ML VIAL ONE (08:07)
[2022-07-11] MEDS ORDERED: ONDANSETRON 4 MG/2 ML VIAL IVP ONE (08:08)
[2022-07-11] MEDS ORDERED: LIDOCAINE 2% INJ 20 MG/ML (2 ML VIAL) ONE (09:24)
[2022-07-11] MEDS ORDERED: PROPOFOL 10 MG/ML 20 ML VIAL IV ONE (09:24)
[2022-07-11] MEDS ORDERED: fentaNYL (PF) 50 MCG/ML 2 ML AMP ONE (09:24)
--- NOTE | 2022-07-11 10:02 | P.PCN ---
Date of Procedure: 07/11/22 Procedure(s) Performed: Brief history: Patient is a pleasant 31-year-old white female scheduled for an elective upper endoscopy as well as colonoscopy as a part of evaluation of GERD and change in bowel habits Procedure performed: Esophagogastroduodenoscopy with biopsy Colonoscopy with biopsy Preoperative diagnosis: GERD Change in bowel habits Anesthesia: MAC Procedure: After informed consent was obtained from the patient was brought into the endoscopy unit and IV sedation was administered by anesthesia under continuous monitoring. Initially upper endoscopy was done. The Olympus GF 160 video endoscope was inserted inserted into the mouth and esophagus intubated without any difficulty and was gradually advanced into the stomach and duodenum and carefully examined. The bulb and second part of the duodenum appeared normal. The scope was then withdrawn into the stomach adequately insufflated with air and upon careful examination the antrum had mild gastritis and biopsies were done from this area. Mucosa of the body, cardia and fundus appeared normal. there was small amount of retained solid and liquid in the stomach suggestive of gastroparesis. The scope was then withdrawn into the esophagus. The GE junction was located at 40 cm to the incisors. It appeared regular with no erythema erosions or ulcerations. Rest of the esophagus appeared normal. Patient tolerated the procedure well. At this time the patient continued to remain sedation. Initial digital rectal examination was normal. Olympus CF 160 video colonoscope was then inserted into the rectum and gradually advanced to the cecum without any difficulty. Careful examination was performed as the scope was gradually being withdrawn. The prep was excellent. The cecum, ascending colon, transverse colon, descending colon, sigmoid colon and rectum appeared normal. In the proximal rectum there was a 5 mm polyp that was removed by cold biopsy. Retroflexion was performed in the rectum and no lesions were noted. Patient tolerated the procedure well. Impression: 1. Upper endoscopy revealed small amount of retained solid and liquid in the stomach suggestive of mild diabetic gastroparesis, gastritis and mild esophagitis 2. Colonoscopy revealed a 5 mm proximal rectal polyp status post cold biopsy and the rest of the colon appeared normal Recommendations: Findings of this examination were discussed with the patient as well as her family. She was advised to follow with the biopsy results. continue with omeprazole 20 mg daily and follow antireflux measures. Recommended aggressive control of blood sugars and small frequent meals. If the biopsy of the colon polyp reveals adenoma she can have a repeat colonoscopy in 5 years
[2022-07-11 10:19] LABS: Glucose,Whole Blood 189 mg/dL (70-110)
[2022-07-11 10:33] VITALS: BP 150/91; PULSE 92; RESP 17
== END 2022-07-11 11:14 | disposition home or self-care (01) ==
LOC: ORWHC2ENDO 06:57
PROVIDERS: ATTEND Internal Medicine Gastroenterology
DX: K29.50 Unspecified chronic gastritis without bleeding (principal); K62.1 Rectal polyp; K21.9 Gastro-esophageal reflux disease without esophagitis
CPT/HCPCS: 88305; 84703; 45380; 43239; J2405; J3010; J2704; J2001

== ENCOUNTER 2022-10-05 19:27 | Inpatient (IN) | payer BC ==
[2022-10-05] MEDS ORDERED: ACETAMINOPHEN TAB 325 MG TAB PO STA (21:25)
[2022-10-05] MEDS ORDERED: hydrALAZINE HCL 20 MG/ML 1 ML VIAL IVP STA (21:25)
--- NOTE | 2022-10-05 21:27 | ED ---
Extremity Problem HPI - General Chief complaint: Extremity Problem,Nontraumatic Stated complaint: swelling in legs Time Seen by Provider: 10/05/22 21:11 Source: patient Mode of arrival: ambulatory Limitations: no limitations - History of Present Illness Initial comments: This patient is a 32-year-old woman with history of diabetes and of nephrotic syndrome. She states that she does tend to have some edema but she has noticed an increase in bilateral leg edema and also weight gain. The patient states that she had her diuretic changed from furosemide to torsemide prior to the development of the edema. She states that she try to follow-up with her neurologist but they will not be able to get her in until November 11. Patient denies dyspnea. She states she does have a chronic nonproductive cough which she attributed to her lisinopril. No unilateral leg pain no chest pain or hemoptysis. MD Complaint: extremity swelling -: days(s) Location: bilateral lower extremity History of Same: Yes Quality: dull Consistency: constant Improves with: nothing Worsens with: nothing Associated Symptoms: other - Related Data Home Medications Medication Instructions Recorded Confirmed Insulin Aspart (For Pump) [NovoLOG 0.01 unit SQ-PUMP CONTINUOUS MDD 11/08/17 07/11/22 (For Pump)] 70 UNITS Cyclobenzaprine [Flexeril] 10 mg PO HS 04/15/22 07/11/22 Ferrous Sulfate [Feosol] 325 mg PO BID 04/15/22 07/11/22 Furosemide [Lasix] 20 mg PO BID PRN 07/10/22 07/11/22 Metoprolol Tartrate [Lopressor] 25 mg PO BID 07/10/22 07/11/22 Omeprazole 20 mg PO DAILY 07/10/22 07/11/22 Previous Rx's Medication Instructions Recorded lisinopriL [Zestril] 5 mg PO DAILY #30 tab 04/22/22 Allergies Allergy/AdvReac Type Severity Reaction Status Date / Time cephalexin [From Keflex] Allergy Swelling Verified 10/05/22 20:00 (tongue) midazolam [From Versed] Allergy very Verified 10/05/22 20:00 anxious feeling Review of Systems ROS Statement: Those systems with pertinent positive or pertinent negative responses have been documented in the HPI. ROS Other: All systems not noted in ROS Statement are negative. Constitutional: Reports: weight change. Denies: fever, chills, weakness Eyes: Denies: eye pain, vision change Respiratory: Reports: cough. Denies: dyspnea, wheezes, hemoptysis Cardiovascular: Reports: edema. Denies: chest pain, palpitations, orthopnea, syncope Gastrointestinal: Reports: diarrhea. Denies: abdominal pain, nausea, vomiting Genitourinary: Denies: dysuria, frequency, hematuria Musculoskeletal: Denies: back pain Skin: Denies: rash Neurological: Denies: headache, weakness, numbness Past Medical History Past Medical History: Asthma, Diabetes Mellitus, GERD/Reflux, Hypertension, Renal Disease Additional Past Medical History / Comment(s): hx. hiatal hernia, diabetic- TYPE 1 chronic kidney disease-protein in urine , albumin, MIGRAINE HEADACHES, CHILDHOOD ASTHMA, neuropathy in feet and legs, diabetic neuropathy History of Any Multi-Drug Resistant Organisms: MRSA Date of last positivie culture/infection: 2009 MDRO Source:: abdomen left side Past Surgical History: Section Additional Past Surgical History / Comment(s): surgery on cervix for abnormal cells, surgery groin area for grown hairs. bilateral cataract surgery with implants, Past Anesthesia/Blood Transfusion Reactions: No Reported Reaction, Motion Sickness Additional Past Anesthesia/Blood Transfusion Reaction / Comment(s): Pt has clausterphobia. Past Psychological History: ADD/ADHD, Anxiety, Depression Smoking Status: Former smoker Past Alcohol Use History: Occasional Past Drug Use History: None Reported - Past Family History Mother Family Medical History: No Reported History, Thyroid Disorder Additional Family Medical History / Comment(s): gestational diabetes Father Family Medical History: No Reported History Additional Family Medical History / Comment(s): crohnes disease General Exam Limitations: no limitations General appearance: alert, in no apparent distress Head exam: Present: atraumatic, normocephalic Eye exam: Present: normal appearance. Absent: scleral icterus, conjunctival injection Neck exam: Present: normal inspection Respiratory exam: Present: normal lung sounds bilaterally. Absent: respiratory distress, wheezes, rales, rhonchi, stridor Cardiovascular Exam: Present: normal rhythm, tachycardia, normal heart sounds. Absent: systolic murmur, diastolic murmur, rubs, gallop GI/Abdominal exam: Present: soft. Absent: distended, tenderness, guarding, rebound, rigid, mass Extremities exam: Present: normal inspection, normal capillary refill, pedal edema. Absent: calf tenderness Back exam: Present: normal inspection. Absent: CVA tenderness (R), CVA tenderness (L) Neurological exam: Present: alert Skin exam: Present: warm, dry, intact, normal color. Absent: rash Course Vital Signs 10/05/22 10/05/22 10/05/22 19:57 21:00 21:30 Temperature 98.6 F Pulse Rate 112 H 111 H 108 H Respiratory 20 18 18 Rate Blood Pressure 136/90 158/103 170/115 O2 Sat by Pulse 98 100 100 Oximetry 10/05/22 10/05/22 10/05/22 21:50 22:00 22:10 Temperature Pulse Rate 116 H 115 H 115 H Respiratory 18 Rate Blood Pressure 170/115 170/115 193/113 O2 Sat by Pulse 100 100 100 Oximetry 10/05/22 10/05/22 22:30 22:40 Temperature Pulse Rate 123 H 123 H Respiratory 18 18 Rate Blood Pressure 180/103 171/99 O2 Sat by Pulse 100 100 Oximetry Medical Decision Making - Medical Decision Making The patient had 2 view chest x-ray which I interpreted as being negative for acute infiltrate, pneumothorax, congestive heart failure. - Lab Data Result diagrams: 10/05/22 20:48 10/05/22 20:48 Lab Results 10/05/22 10/05/22 10/05/22 Range/Units 20:37 20:37 20:48 WBC 9.1 (3.8-10.6) k/uL RBC 4.01 (3.80-5.40) m/uL Hgb 11.9 (11.4-16.0) gm/dL Hct 35.8 (34.0-46.0) % MCV 89.3 (80.0-100.0) fL MCH 29.6 (25.0-35.0) pg MCHC 33.1 (31.0-37.0) g/dL RDW 13.7 (11.5-15.5) % Plt Count 223 (150-450) k/uL MPV 8.7 Neutrophils % 57 % Lymphocytes % 35 % Monocytes % 5 % Eosinophils % 2 % Basophils % 0 % Neutrophils # 5.2 (1.3-7.7) k/uL Lymphocytes # 3.2 (1.0-4.8) k/uL Monocytes # 0.5 (0-1.0) k/uL Eosinophils # 0.1 (0-0.7) k/uL Basophils # 0.0 (0-0.2) k/uL PT 9.3 (9.0-12.0) sec INR 0.8 (<1.2) APTT 23.7 (22.0-30.0) sec Sodium (137-145) mmol/L Potassium (3.5-5.1) mmol/L Chloride (98-107) mmol/L Carbon Dioxide (22-30) mmol/L Anion Gap mmol/L BUN (7-17) mg/dL Creatinine (0.52-1.04) mg/dL Est GFR (CKD-EPI)AfAm (>60 ml/min/1.73 sqM) Est GFR (CKD-EPI)NonAf (>60 ml/min/1.73 sqM) Glucose (74-99) mg/dL POC Glucose (mg/dL) (70-110) mg/dL POC Glu Marketing Production Specialist ID Calcium (8.4-10.2) mg/dL Total Bilirubin (0.2-1.3) mg/dL AST (14-36) U/L ALT (4-34) U/L Alkaline Phosphatase (38-126) U/L Troponin I <0.012 (0.000-0.034) ng/mL Total Protein (6.3-8.2) g/dL Albumin (3.5-5.0) g/dL 10/05/22 10/05/22 Range/Units 20:48 23:29 WBC (3.8-10.6) k/uL RBC (3.80-5.40) m/uL Hgb (11.4-16.0) gm/dL Hct (34.0-46.0) % MCV (80.0-100.0) fL MCH (25.0-35.0) pg MCHC (31.0-37.0) g/dL RDW (11.5-15.5) % Plt Count (150-450) k/uL MPV Neutrophils % % Lymphocytes % % Monocytes % % Eosinophils % % Basophils % % Neutrophils # (1.3-7.7) k/uL Lymphocytes # (1.0-4.8) k/uL Monocytes # (0-1.0) k/uL Eosinophils # (0-0.7) k/uL Basophils # (0-0.2) k/uL PT (9.0-12.0) sec INR (<1.2) APTT (22.0-30.0) sec Sodium 134 L (137-145) mmol/L Potassium 4.4 (3.5-5.1) mmol/L Chloride 105 (98-107) mmol/L Carbon Dioxide 25 (22-30) mmol/L Anion Gap 4 mmol/L BUN 38 H (7-17) mg/dL Creatinine 1.41 H (0.52-1.04) mg/dL Est GFR (CKD-EPI)AfAm 56 (>60 ml/min/1.73 sqM) Est GFR (CKD-EPI)NonAf 49 (>60 ml/min/1.73 sqM) Glucose 233 H (74-99) mg/dL POC Glucose (mg/dL) 253 H (70-110) mg/dL POC Glu Marketing Production Specialist ID Jones, Naz Calcium 8.1 L (8.4-10.2) mg/dL Total Bilirubin 0.3 (0.2-1.3) mg/dL AST 39 H (14-36) U/L ALT 39 H (4-34) U/L Alkaline Phosphatase 106 (38-126) U/L Troponin I (0.000-0.034) ng/mL Total Protein 5.0 L (6.3-8.2) g/dL Albumin 2.2 L (3.5-5.0) g/dL - EKG Data -: EKG Interpreted by Ia EKG shows normal: sinus rhythm, axis (Normal), intervals, QRS complexes (Normal), ST-T waves (Normal) Rate: tachycardia (Rate 113 bpm) Disposition Clinical Impression: Acute kidney injury, Hypertension, Bilateral lower extremity edema Disposition: ADMITTED IP TO THIS HOSP Condition: Fair Referrals: Mohit Curran MD [Primary Care Provider] - 1-2 days
[2022-10-05 21:31] LABS: ALT 39 U/L (4-34); AST 39 U/L (14-36); African American GFR (CKD) 56 (>60 ml/min/1.73 sqM); Albumin 2.2 g/dL (3.5-5.0); Alkaline Phosphatase 106 U/L (38-126); Anion Gap 4 mmol/L; Blood Urea Nitrogen 38 mg/dL (7-17); Calcium 8.1 mg/dL (8.4-10.2); Carbon Dioxide 25 mmol/L (22-30); Chloride 105 mmol/L (98-107); Glucose 233 mg/dL (74-99); Non-African American GFR(CKD) 49 (>60 ml/min/1.73 sqM); Potassium 4.4 mmol/L (3.5-5.1); Sodium 134 mmol/L (137-145); Total Bilirubin 0.3 mg/dL (0.2-1.3)
[2022-10-05 21:39] LABS: Basophils % (A) 0 %; Eosinophils # (A) 0.1 k/uL (0-0.7); Eosinophils % (A) 2 %; HCT 35.8 % (34.0-46.0); HGB 11.9 gm/dL (11.4-16.0); Lymphocytes # (A) 3.2 k/uL (1.0-4.8); Lymphocytes % (A) 35 %; MCH 29.6 pg (25.0-35.0); MCHC 33.1 g/dL (31.0-37.0); MCV 89.3 fL (80.0-100.0); Mean Platelet Volume 8.7; Monocytes # (A) 0.5 k/uL (0-1.0); Monocytes % (A) 5 %; Neutrophils # (A) 5.2 k/uL (1.3-7.7); Neutrophils % (A) 57 %; Platelet Count 223 k/uL (150-450); RBC 4.01 m/uL (3.80-5.40); RDW 13.7 % (11.5-15.5); WBC 9.1 k/uL (3.8-10.6)
[2022-10-05 21:59] LABS: INR 0.8 (<1.2); Partial Thromboplastin Time 23.7 sec (22.0-30.0); Prothrombin Time 9.3 sec (9.0-12.0)
--- NOTE | 2022-10-05 22:05 | XR ---
EXAMINATION TYPE: XR chest 2V DATE OF EXAM: 10/05/2022 9:47 PM COMPARISON: Chest radiographs from 04/17/2022 TECHNIQUE: XR chest 2V Frontal and lateral views of the chest. CLINICAL INDICATION:Female, 32 years old with history of new edema; FINDINGS: Lungs/Pleura: There is no evidence of pleural effusion, focal consolidation, or pneumothorax. Pulmonary vascularity: Unremarkable. Heart/mediastinum: Cardiomediastinal silhouette is unremarkable. Musculoskeletal: No acute osseous pathology. IMPRESSION: No acute cardiopulmonary disease/process.
[2022-10-05] MEDS ORDERED: INSULIN REGULAR 100 UNIT/ML VIAL (IV) SQ STA (23:10)
[2022-10-05] MEDS ORDERED: LABETALOL 5 MG/ML VIAL MDV IVP STA (23:11)
[2022-10-05] MEDS ORDERED: FUROSEMIDE 10 MG/ML 2 ML VIAL IV ONE (23:12)
[2022-10-05 23:31] LABS: Glucose,Whole Blood 253 mg/dL (70-110)
[2022-10-06] MEDS ORDERED: ACETAMINOPHEN TAB 325 MG TAB PO PRN (00:38)
[2022-10-06] MEDS ORDERED: NALOXONE 0.4 MG/ML 1 ML VIAL IV PRN (00:38)
[2022-10-06] MEDS ORDERED: SODIUM CHLORIDE 0.9% 1,000 ML IV SCH (00:45)
[2022-10-06] MEDS: FAMOTIDINE 20 MG TAB PO SCH ×2 (09:03→21:31)
[2022-10-06] MEDS ORDERED: LORazepam 0.5 MG TAB PO PRN (09:56)
[2022-10-06] MEDS ORDERED: DEXTROSE 50% SYRINGE 50 ML IVP PRN ×2 (09:57)
[2022-10-06] MEDS ORDERED: NON FORMULARY DRUG (Dextroamphetamine/Amphetamine [Adderall] 20 MG Tablet) PO SCH (10:00)
[2022-10-06] MEDS ORDERED: CHOLECALCIFEROL 25 MCG (1000 IU) TABLET PO SCH (11:00)
[2022-10-06] MEDS: FERROUS SULFATE 325 MG TAB PO SCH (11:16)
[2022-10-06] MEDS: METOPROLOL TARTRATE 25 MG TAB PO SCH ×2 (11:16→21:31)
[2022-10-06] MEDS: INSULIN ASPART (NovoLOG) 100 UNIT/ML VIAL SQ SCH ×3 (11:17→21:30)
[2022-10-06 11:21] LABS: Glucose,Whole Blood 183 mg/dL (70-110)
--- NOTE | 2022-10-06 11:27 | US ---
EXAMINATION TYPE: US kidneys/renal and bladder DATE OF EXAM: 10/06/2022 COMPARISON: 06/17/2021 CLINICAL INDICATION: Female, 32 years old with history of Neva; abnormal kidney function EXAM MEASUREMENTS: Right Kidney: 12.9x4.9x4.7 cm Left Kidney: 13.7x5.8x7.2 cm Right Kidney: ?perinephric fluid? best seen on kidney/liver interface image, small amount of hydro Left Kidney: wnl Bladder: small amount of dependent debris Bilateral Jets seen: Yes exam technically difficult due to shadowing from small rib spaces and overlying bowel gas Trace right perinephric fluid with mild hydronephrosis. No nephrolithiasis or solid mass identified. Cortical medullary differentiation is maintained. Left kidney is unremarkable without evidence of hydronephrosis, solid mass, or nephrolithiasis. Corti comedullary differentiation is maintained. Bilateral ureteral jets identified. Small amount of dependent debris within urinary bladder. IMPRESSION: 1. Mild right hydronephrosis. 2. Trace right perinephric fluid. 3. Small amount of nonspecific debris layering within the urinary bladder. Correlate with urinalysis.
--- NOTE | 2022-10-06 12:54 | P.NPCON ---
History of Present Illness - Reason for Consult proteinuria - History of Present Illness Patient is a 32-year-old female with history of nephrotic syndrome from biopsy- proven diabetic nephropathy. Protein creatinine ratio of 4.1 on 04/18/2022 Patient has type 1 diabetes diagnosed at age 16. She did have a kidney biopsy at [facility] and follows with a planner/scheduler there. She has been maintained on carlos eduardo inhibitors and Aldactone with some improvement in proteinuria. Patient states that she is in the process of changing to a different planner/scheduler in the same group at [facility]. Over the past few weeks patient has noticed worsening edema of her legs. Blood pressure has also been elevated. Patient came into the hospital due to significant swelling and difficulty in ambulation. Blood pressure was elevated at 170/115 on initial admission. No complaints of recent fever cough or abdominal pain or diarrhea. Patient has been compliant with her medications, although I do not see loop diuretics on her med list. Review of Systems As per HPI Past Medical History Past Medical History: Asthma, Diabetes Mellitus, GERD/Reflux, Hypertension, Renal Disease Additional Past Medical History / Comment(s): hx. hiatal hernia, diabetic- TYPE 1 chronic kidney disease-protein in urine , albumin, MIGRAINE HEADACHES, CHILDHOOD ASTHMA, neuropathy in feet and legs, diabetic neuropathy History of Any Multi-Drug Resistant Organisms: MRSA Date of last positivie culture/infection: 2009 MDRO Source:: abdomen left side Past Surgical History: Section Additional Past Surgical History / Comment(s): surgery on cervix for abnormal cells, surgery groin area for grown hairs. bilateral cataract surgery with implants, Past Anesthesia/Blood Transfusion Reactions: No Reported Reaction, Motion Sickness Additional Past Anesthesia/Blood Transfusion Reaction / Comment(s): Pt has clausterphobia. Past Psychological History: ADD/ADHD, Anxiety, Depression Additional Psychological History / Comment(s): Pt resides with her parents and her 2 children ages 7 and 9 yrs. She is independent. She states her depression is stable at this time but states yesterday, 06/17/21, she did feet more depressed and had thoughts that she would be fine if she went to sleep and did not wake up. Pt denies suicidal thoughts/plans. Smoking Status: Former smoker Past Alcohol Use History: Occasional Additional Past Alcohol Use History / Comment(s): Pt started smoking in 2007 and quit in 2019 smoked 1/4 ppd or less Past Drug Use History: None Reported Additional Drug Use History / Comment(s): edibles occasional- instructed to hold 24 hours prior to procedure. - Past Family History Mother Family Medical History: No Reported History, Thyroid Disorder Additional Family Medical History / Comment(s): gestational diabetes Father Family Medical History: No Reported History Additional Family Medical History / Comment(s): crohnes disease Medications and Allergies Home Medications Medication Instructions Recorded Confirmed Type Insulin Aspart (For Pump) [NovoLOG 0.01 unit SQ-PUMP CONTINUOUS MDD 11/08/17 10/06/22 History (For Pump)] 70 UNITS Cyclobenzaprine [Flexeril] 10 mg PO HS 04/15/22 10/06/22 History Ferrous Sulfate [Feosol] 325 mg PO Q2D 04/15/22 10/06/22 History Metoprolol Tartrate [Lopressor] 25 mg PO BID 07/10/22 10/06/22 History Omeprazole 20 mg PO DAILY 07/10/22 10/06/22 History Atorvastatin [Lipitor] 10 mg PO HS 10/06/22 10/06/22 History Cholecalciferol (Vitamin D3) 1,250 mcg PO MO 10/06/22 10/06/22 History [Vitamin D3] Cyclobenzaprine [Flexeril] 10 mg PO HS 10/06/22 10/06/22 History Dextroamphetamine/Amphetamine 20 mg PO DAILY 10/06/22 10/06/22 History [Adderall] LORazepam [Ativan] 0.5 mg PO HS PRN 10/06/22 10/06/22 History lisinopriL [Zestril] 10 mg PO DAILY 10/06/22 10/06/22 History Allergies Allergy/AdvReac Type Severity Reaction Status Date / Time cephalexin [From Keflex] Allergy Swelling Verified 10/06/22 08:19 (tongue) midazolam [From Versed] AdvReac very Verified 10/06/22 08:19 anxious feeling Physical Exam Vitals: Vital Signs Temp Pulse Pulse Resp BP BP Pulse Ox 10/06/22 12:24 111 H 148/97 10/06/22 11:15 117 H 162/106 10/06/22 09:03 117 H 10/06/22 08:00 97.7 F 118 H 16 147/84 98 10/06/22 04:38 97.6 F 115 H 16 143/80 98 10/06/22 02:20 98.1 F 113 H 18 114/81 95 10/06/22 02:00 113 H 128/81 10/06/22 01:40 112 H 18 116/65 10/06/22 01:20 112 H 123/65 10/06/22 00:40 112 H 120/85 10/06/22 00:20 111 H 142/87 10/06/22 00:00 109 H 138/92 10/05/22 23:40 124 H 148/92 10/05/22 23:00 123 H 162/96 10/05/22 22:40 123 H 18 171/99 100 10/05/22 22:30 123 H 18 180/103 100 10/05/22 22:10 115 H 193/113 100 10/05/22 22:00 115 H 18 170/115 100 10/05/22 21:50 116 H 170/115 100 10/05/22 21:30 108 H 18 170/115 100 10/05/22 21:00 111 H 18 158/103 100 10/05/22 19:57 98.6 F 112 H 20 136/90 98 Intake and Output 10/05/22 10/06/22 10/06/22 22:59 06:59 14:59 Other: Voiding Method Toilet Toilet # Voids 0 Weight 96.661 kg 96.661 kg Patient is awake, comfortable, no acute distress. Alert oriented 3 Examination of the heart S1 and S2 Examination of the lungs bilateral breath sounds are heard Abdomen is soft nontender Examination of lower extremities shows 2-3+ edema bilaterally [employer] SPECIALIST exam grossly intact Results - Lab Results Most recent lab results Calcium 8.1 mg/dL (8.4-10.2) L 10/05/22 20:48 10/05/22 20:48 10/05/22 20:48 Assessment and Plan Assessment: 1. Volume overload and significant lower extremity edema secondary to nephrotic syndrome from biopsy-proven diabetic nephropathy. Patient follows at [facility] 2. Nephrotic syndrome secondary to biopsy-proven diabetic nephropathy maintained on CARLOS EDUARDO inhibitor's and Aldactone prior to admission. Patient had also been on Lasix although I do not see the diuretics on her med list 3. Type 1 diabetes diagnosed at age 16 4. Accelerated hypertension exacerbated with volume overload Plan: DC IV fluids Add IV Lasix Resume lisinopril Resume Aldactone Repeat protein creatinine ratio Repeat labs in a.m. Avoid hypotension Thank you for the consultation. We will continue to follow the patient with you during her hospitalization.
--- NOTE | 2022-10-06 14:04 | P.HPIM ---
History of Present Illness H&P Date: 10/06/22 History of present illness; patient is 32-year-old lady with past medical histor y significant for diabetes and nephrotic syndrome to the ER because of worsening swelling of lower extremities and weight gain. Patient normally follows up with his own wine fermenter who changed her diuretic to torsemide, following that she started noticing that her swelling of her extremities has been worsening. Denies any chest pain. Denies any complaint of shortness of breath. Denies any nausea, vomiting abdominal pain. Denied any increasing frequency of micturition. Denies any hematuria. Because of this weight gain and swelling for extremities, patient came to the ER Initial lab work done in the ER showed WBC 9.1, hemoglobin 11.9, platelet count 223, sodium 134, potassium 4.4, BUN 38, creatinine 1.41 calcium 8.1, AST 39, ALT 39 EKG done in the ER showed sinus tachycardia, ventricular rate of 113, QRS 102, no segment elevation, no T-wave inversion seen Chest x-ray done in the ER showed no acute cardiopulmonary disease REVIEW OF SYSTEMS: CONSTITUTIONAL: No fever, no malaise, no fatigue. HEENT: No recent visual problems or hearing problems. Denied any sore throat. CARDIOVASCULAR: As mentioned in HPI PULMONARY: As mentioned in HPI GASTROINTESTINAL: No diarrhea, no nausea, no vomiting, no abdominal pain. NEUROLOGICAL: No headaches, no weakness, no numbness. HEMATOLOGICAL: Denies any bleeding or petechiae. GENITOURINARY: As mentioned in HPI MUSCULOSKELETAL/RHEUMATOLOGICAL: As mentioned in HPI ENDOCRINE: Denies any polyuria or polydipsia. The rest of the 14-point review of systems is negative. PHYSICAL EXAMINATION: GENERAL: The patient is alert and oriented x3, not in any acute distress. Well developed, well nourished. HEENT: Pupils are round and equally reacting to light. EOMI. No scleral icterus. No conjunctival pallor. Normocephalic, atraumatic. No pharyngeal erythema. No thyromegaly. CARDIOVASCULAR: S1 and S2 present. No murmurs, rubs, or gallops. PULMONARY: Chest is clear to auscultation, no wheezing or crackles. ABDOMEN: Soft, nontender, nondistended, normoactive bowel sounds. No palpable organomegaly. MUSCULOSKELETAL: No joint swelling or deformity. EXTREMITIES: No cyanosis, clubbing, 2+ pitting edema lower extremities bilaterally NEUROLOGICAL: Gross neurological examination did not reveal any focal deficits. SKIN: No rashes. Assessment and plan Acute kidney injury Nephrotic syndrome Hypoalbuminemia Hypertension Insulin-dependent diabetes mellitus Monitor vital signs Monitor CBC Monitor CMP Continue telemetry monitoring Strict I's and O's Daily weights Ordered UA Ordered ultrasound of kidneys Avoid nephrotoxic agents Consult nephrology Labs and medication were reviewed.. Continue same treatment. Continue with symptomatic treatment. Resume home medication. Monitor labs and vitals. DVT and GI prophylaxis. Further recommendations as per clinical course of the patient Dictation was produced using [employer] dictation software. please excuse any grammatical, word or spelling errors. Past Medical History Past Medical History: Asthma, Diabetes Mellitus, GERD/Reflux, Hypertension, Renal Disease Additional Past Medical History / Comment(s): hx. hiatal hernia, diabetic- TYPE 1 chronic kidney disease-protein in urine , albumin, MIGRAINE HEADACHES, CHILDHOOD ASTHMA, neuropathy in feet and legs, diabetic neuropathy History of Any Multi-Drug Resistant Organisms: MRSA Date of last positivie culture/infection: 2009 MDRO Source:: abdomen left side Past Surgical History: Section Additional Past Surgical History / Comment(s): surgery on cervix for abnormal cells, surgery groin area for grown hairs. bilateral cataract surgery with implants, Past Anesthesia/Blood Transfusion Reactions: No Reported Reaction, Motion Sickness Additional Past Anesthesia/Blood Transfusion Reaction / Comment(s): Pt has clausterphobia. Past Psychological History: ADD/ADHD, Anxiety, Depression Additional Psychological History / Comment(s): Pt resides with her parents and her 2 children ages 7 and 9 yrs. She is independent. She states her depression is stable at this time but states yesterday, 06/17/21, she did feet more depressed and had thoughts that she would be fine if she went to sleep and did not wake up. Pt denies suicidal thoughts/plans. Smoking Status: Former smoker Past Alcohol Use History: Occasional Additional Past Alcohol Use History / Comment(s): Pt started smoking in 2007 and quit in 2019 smoked 1/4 ppd or less Past Drug Use History: None Reported Additional Drug Use History / Comment(s): edibles occasional- instructed to hold 24 hours prior to procedure. - Past Family History Mother Family Medical History: No Reported History, Thyroid Disorder Additional Family Medical History / Comment(s): gestational diabetes Father Family Medical History: No Reported History Additional Family Medical History / Comment(s): crohnes disease Medications and Allergies Home Medications Medication Instructions Recorded Confirmed Type Insulin Aspart (For Pump) [NovoLOG 0.01 unit SQ-PUMP CONTINUOUS MDD 11/08/17 10/06/22 History (For Pump)] 70 UNITS Cyclobenzaprine [Flexeril] 10 mg PO HS 04/15/22 10/06/22 History Ferrous Sulfate [Feosol] 325 mg PO Q2D 04/15/22 10/06/22 History Metoprolol Tartrate [Lopressor] 25 mg PO BID 07/10/22 10/06/22 History Omeprazole 20 mg PO DAILY 07/10/22 10/06/22 History Atorvastatin [Lipitor] 10 mg PO HS 10/06/22 10/06/22 History Cholecalciferol (Vitamin D3) 1,250 mcg PO MO 10/06/22 10/06/22 History [Vitamin D3] Cyclobenzaprine [Flexeril] 10 mg PO HS 10/06/22 10/06/22 History Dextroamphetamine/Amphetamine 20 mg PO DAILY 10/06/22 10/06/22 History [Adderall] LORazepam [Ativan] 0.5 mg PO HS PRN 10/06/22 10/06/22 History lisinopriL [Zestril] 10 mg PO DAILY 10/06/22 10/06/22 History Allergies Allergy/AdvReac Type Severity Reaction Status Date / Time cephalexin [From Keflex] Allergy Swelling Verified 10/06/22 08:19 (tongue) midazolam [From Versed] AdvReac very Verified 10/06/22 08:19 anxious feeling Physical Exam Vitals: Vital Signs Temp Pulse Pulse Resp BP BP Pulse Ox 10/06/22 08:00 97.7 F 118 H 16 147/84 98 10/06/22 04:38 97.6 F 115 H 16 143/80 98 10/06/22 02:20 98.1 F 113 H 18 114/81 95 10/06/22 02:00 113 H 128/81 10/06/22 01:40 112 H 18 116/65 10/06/22 01:20 112 H 123/65 10/06/22 00:40 112 H 120/85 10/06/22 00:20 111 H 142/87 10/06/22 00:00 109 H 138/92 10/05/22 23:40 124 H 148/92 10/05/22 23:00 123 H 162/96 10/05/22 22:40 123 H 18 171/99 100 10/05/22 22:30 123 H 18 180/103 100 10/05/22 22:10 115 H 193/113 100 10/05/22 22:00 115 H 18 170/115 100 10/05/22 21:50 116 H 170/115 100 10/05/22 21:30 108 H 18 170/115 100 10/05/22 21:00 111 H 18 158/103 100 10/05/22 19:57 98.6 F 112 H 20 136/90 98 Intake and Output 10/05/22 10/06/22 10/06/22 22:59 06:59 14:59 Other: Voiding Method Toilet # Voids 0 Weight 96.661 kg 96.661 kg Results CBC & Chem 7: 10/05/22 20:48 10/05/22 20:48 Labs: Abnormal Lab Results - Last 24 Hours (Table) 10/05/22 10/05/22 Range/Units 20:48 23:29 Sodium 134 L (137-145) mmol/L BUN 38 H (7-17) mg/dL Creatinine 1.41 H (0.52-1.04) mg/dL Glucose 233 H (74-99) mg/dL POC Glucose (mg/dL) 253 H (70-110) mg/dL Calcium 8.1 L (8.4-10.2) mg/dL AST 39 H (14-36) U/L ALT 39 H (4-34) U/L Total Protein 5.0 L (6.3-8.2) g/dL Albumin 2.2 L (3.5-5.0) g/dL Thrombosis Risk Factor Assmnt - Choose All That Apply Any of the Below Risk Factors Present?: Yes Each Factor Represents 1 point: Obesity (BMI >25), Swollen legs (current) Thrombosis Risk Factor Assessment Total Risk Factor Score: 2 Thrombosis Risk Factor Assessment Level: Low Risk
[2022-10-06] MEDS: FUROSEMIDE 10 MG/ML 4 ML VIAL IV SCH (16:11)
[2022-10-06 16:31] LABS: Glucose,Whole Blood 103 mg/dL (70-110)
[2022-10-06 17:01] LABS: Amorphous Sediment,Urine Occasional /hpf; Appearance,Urine Clear (Clear); Bacteria,Urine Few /hpf; Bilirubin,Urine Negative (Negative); Blood,Urine Small (Negative); Color,Urine Light Yellow; Glucose,Urine (UA) 1+ (Negative); Hyaline Casts,Urine 11 /lpf (0-2); Ketones,Urine Negative (Negative); Leukocyte Esterase,Urine Negative (Negative); Mucus,Urine Rare /hpf; Nitrite,Urine Negative (Negative); Protein,Urine 3+ (Negative); RBC,Urine 3 /hpf (0-5); Specific Gravity,Urine 1.012 (1.001-1.035); Squamous Epithelial Cell,Urine 2 /hpf (0-4); Urobilinogen,Urine <2.0 mg/dL (<2.0); WBC,Urine 3 /hpf (0-5)
[2022-10-06 17:14] LABS: Creatinine,Urine Random 70.4 mg/dL
[2022-10-06 20:11] LABS: Glucose,Whole Blood 164 mg/dL (70-110)
[2022-10-06] MEDS ORDERED: CYCLOBENZAPRINE 10 MG TAB PO SCH (21:00)
[2022-10-06] MEDS: CYCLOBENZAPRINE 10 MG TAB PO SCH (21:31)
[2022-10-06] MEDS: lisinopriL 10 MG TAB PO SCH (21:31)
[2022-10-06] MEDS: ATORVASTATIN 10 MG TAB PO SCH (21:31)
[2022-10-07 01:45] LABS: Glucose,Whole Blood 156 mg/dL (70-110)
[2022-10-07] MEDS: FUROSEMIDE 10 MG/ML 4 ML VIAL IV SCH ×3 (01:54→15:18)
[2022-10-07 05:46] LABS: Glucose,Whole Blood 111 mg/dL (70-110)
[2022-10-07 05:54] LABS: ALT 35 U/L (4-34); AST 39 U/L (14-36); African American GFR (CKD) 72 (>60 ml/min/1.73 sqM); Albumin 2.1 g/dL (3.5-5.0); Albumin/Globulin Ratio 0.8; Alkaline Phosphatase 82 U/L (38-126); Anion Gap 3 mmol/L; Blood Urea Nitrogen 28 mg/dL (7-17); Calcium 8.2 mg/dL (8.4-10.2); Carbon Dioxide 25 mmol/L (22-30); Chloride 107 mmol/L (98-107); Globulin 2.6 g/dL; Glucose 122 mg/dL (74-99); Non-African American GFR(CKD) 62 (>60 ml/min/1.73 sqM); Potassium 4.6 mmol/L (3.5-5.1); Sodium 135 mmol/L (137-145); Total Bilirubin 0.3 mg/dL (0.2-1.3); Total Protein 4.7 g/dL (6.3-8.2)
[2022-10-07] MEDS: PANTOPRAZOLE 40 MG TABLET PO SCH (06:49)
[2022-10-07] MEDS: INSULIN ASPART (NovoLOG) 100 UNIT/ML VIAL SQ SCH ×4 (06:50→20:36)
[2022-10-07] MEDS: lisinopriL 10 MG TAB PO SCH (08:37)
[2022-10-07] MEDS: METOPROLOL TARTRATE 25 MG TAB PO SCH ×2 (08:37→20:31)
[2022-10-07] MEDS: FAMOTIDINE 20 MG TAB PO SCH ×2 (08:37→20:30)
[2022-10-07 09:22] LABS: Basophils # (A) 0.04 X 10*3/uL (0.00-0.10); Basophils % (A) 0.4 %; Eosinophils # (A) 0.08 X 10*3/uL (0.04-0.35); Eosinophils % (A) 0.8 %; HCT 34.1 % (37.2-46.3); HGB 10.9 d/dL (12.0-15.0); Lymphocytes # (A) 2.61 X 10*3/uL (0.90-5.00); Lymphocytes % (A) 25.3 %; MCH 28.9 pg (27.0-32.0); MCV 90.5 FL (80.0-97.0); Mean Platelet Volume 10.9 FL (9.5-12.2); Monocytes % (A) 7.8 %; NRBC Per 100 WBC 0 X 10*3/uL (0.00-0.01); Neutrophils # (A) 6.72 X 10*3/uL (1.80-7.70); Platelet Count 267 X 10*3/uL (140-440); RBC 3.77 X 10*6/uL (4.10-5.20); RDW 13.5 % (11.5-14.5); WBC 10.32 X 10*3/uL (4.50-10.00)
[2022-10-07] MEDS: [UNRECOGNIZED DRUG - REMARK] PO SCH (09:57)
[2022-10-07 12:00] LABS: Glucose,Whole Blood 189 mg/dL (70-110)
[2022-10-07] MEDS ORDERED: INSULIN PUMP BASAL RATES 1 EACH MISC MISCELLANE PRN (12:12)
[2022-10-07] MEDS ORDERED: INSPUCOR MISCELLANE PRN (12:12)
[2022-10-07] MEDS ORDERED: INSULIN ASPART (NovoLOG) 100 UNIT/ML VIAL SQ PRN (12:12)
[2022-10-07] MEDS: INSULIN PUMP MEAL BOLUS 1 UNIT MISC MISCELLANE SCH ×3 (12:46→20:35)
--- NOTE | 2022-10-07 13:17 | P.PN ---
Subjective Patient is seen for follow-up for nephrotic syndrome and volume overload. Patient has underlying biopsy-proven diabetic nephropathy. Currently maintained on IV Lasix. Patient reports improvement in the leg swelling. Complaining of dizziness and low blood pressure readings noted at 103/68. No urinary complaints Objective - Vital Signs Vital signs: Vital Signs Temp 97.7 F 10/07/22 08:19 Pulse 104 H 10/07/22 08:19 Resp 18 10/07/22 08:19 BP 142/85 10/07/22 08:19 Pulse Ox 96 10/07/22 08:19 FiO2 Intake & Output 10/06/22 10/07/22 10/07/22 18:59 06:59 18:59 Output Total 400 400 Balance -400 -400 Output: Urine 400 400 Other: Voiding Method Toilet Toilet Toilet # Voids 2 # Bowel Movements 1 - Exam Patient is awake, comfortable, no acute distress. 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 grossly intact - Labs CBC & Chem 7: 10/07/22 04:54 10/07/22 04:54 Labs: Abnormal Lab Results - Last 24 Hours (Table) 10/06/22 10/06/22 10/07/22 Range/Units 16:40 20:09 01:39 WBC (4.50-10.00) X 10*3/uL RBC (4.10-5.20) X 10*6/uL Hgb (12.0-15.0) d/dL Hct (37.2-46.3) % Sodium (137-145) mmol/L BUN (7-17) mg/dL Creatinine (0.52-1.04) mg/dL Glucose (74-99) mg/dL POC Glucose (mg/dL) 164 H 156 H (70-110) mg/dL Hemoglobin A1c (<=6.0) % Calcium (8.4-10.2) mg/dL AST (14-36) U/L ALT (4-34) U/L Total Protein (6.3-8.2) g/dL Albumin (3.5-5.0) g/dL Urine Protein 3+ H (Negative) Urine Glucose (UA) 1+ H (Negative) Urine Blood Small H (Negative) Amorphous Sediment Occasional H (None) /hpf Urine Bacteria Few H (None) /hpf Hyaline Casts 11 H (0-2) /lpf Urine Mucus Rare H (None) /hpf 10/07/22 10/07/22 10/07/22 Range/Units 04:54 04:54 04:54 WBC 10.32 H (4.50-10.00) X 10*3/uL RBC 3.77 L (4.10-5.20) X 10*6/uL Hgb 10.9 L (12.0-15.0) d/dL Hct 34.1 L (37.2-46.3) % Sodium 135 L (137-145) mmol/L BUN 28 H (7-17) mg/dL Creatinine 1.15 H (0.52-1.04) mg/dL Glucose 122 H (74-99) mg/dL POC Glucose (mg/dL) (70-110) mg/dL Hemoglobin A1c 9.6 H (<=6.0) % Calcium 8.2 L (8.4-10.2) mg/dL AST 39 H (14-36) U/L ALT 35 H (4-34) U/L Total Protein 4.7 L (6.3-8.2) g/dL Albumin 2.1 L (3.5-5.0) g/dL Urine Protein (Negative) Urine Glucose (UA) (Negative) Urine Blood (Negative) Amorphous Sediment (None) /hpf Urine Bacteria (None) /hpf Hyaline Casts (0-2) /lpf Urine Mucus (None) /hpf 10/07/22 10/07/22 Range/Units 05:43 11:59 WBC (4.50-10.00) X 10*3/uL RBC (4.10-5.20) X 10*6/uL Hgb (12.0-15.0) d/dL Hct (37.2-46.3) % Sodium (137-145) mmol/L BUN (7-17) mg/dL Creatinine (0.52-1.04) mg/dL Glucose (74-99) mg/dL POC Glucose (mg/dL) 111 H 189 H (70-110) mg/dL Hemoglobin A1c (<=6.0) % Calcium (8.4-10.2) mg/dL AST (14-36) U/L ALT (4-34) U/L Total Protein (6.3-8.2) g/dL Albumin (3.5-5.0) g/dL Urine Protein (Negative) Urine Glucose (UA) (Negative) Urine Blood (Negative) Amorphous Sediment (None) /hpf Urine Bacteria (None) /hpf Hyaline Casts (0-2) /lpf Urine Mucus (None) /hpf Assessment and Plan Assessment: 1. Volume overload and significant lower extremity edema secondary to nephrotic syndrome from biopsy-proven diabetic nephropathy. Patient follows at [facility] 2. Nephrotic syndrome secondary to biopsy-proven diabetic nephropathy maintained on CARLOS EDUARDO inhibitor's and Aldactone prior to admission and torsemide 3. Type 1 diabetes diagnosed at age 16 4. Accelerated hypertension exacerbated with volume overload Plan: Continue with IV Lasix Decrease lisinopril to 5 mg twice a day Resume Aldactone Continue with vitamin D Repeat labs in a.m. Accurate I's and O's
--- NOTE | 2022-10-07 15:12 | P.PN ---
Subjective Progress Note Date: 10/07/22 patient is 32-year-old lady with past medical history significant for diabetes and nephrotic syndrome to the ER because of worsening swelling of lower extremities and weight gain. 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 Denies any chest pain. Denies any complaint of shortness of breath. Denies any nausea, vomiting abdominal pain. Denied any increasing frequency of micturition. Denies any hematuria. Because of this weight gain and swelling for extremities, patient came to the ER Initial lab work done in the ER showed WBC 9.1, hemoglobin 11.9, platelet count 223, sodium 134, potassium 4.4, BUN 38, creatinine 1.41 calcium 8.1, AST 39, ALT 39 EKG done in the ER showed sinus tachycardia, ventricular rate of 113, QRS 102, no segment elevation, no T-wave inversion seen Chest x-ray done in the ER showed no acute cardiopulmonary disease 10/07. Patient seen and examined. Sodium this morning is 135, potassium 4.6, BU N 828, creatinine 1.15, HbA1c level is 9.6 REVIEW OF SYSTEMS: CONSTITUTIONAL: No fever, no malaise,. CARDIOVASCULAR: No chest pain, no palpitations, no syncope. PULMONARY: No shortness of breath, no cough, GASTROINTESTINAL: No diarrhea, no nausea, no vomiting, no abdominal pain. NEUROLOGICAL: No headaches, no weakness, PHYSICAL EXAMINATION: GENERAL: The patient is alert and oriented x3, not in any acute distress. Well developed, well nourished. HEENT: Pupils are round and equally reacting to light. EOMI. No scleral icterus. No conjunctival pallor. Normocephalic, atraumatic. No pharyngeal erythema. No thyromegaly. CARDIOVASCULAR: S1 and S2 present. No murmurs, rubs, or gallops. PULMONARY: Chest is clear to auscultation, no wheezing or crackles. ABDOMEN: Soft, nontender, nondistended, normoactive bowel sounds. No palpable organomegaly. MUSCULOSKELETAL: No joint swelling or deformity. EXTREMITIES: No cyanosis, clubbing, or pedal edema. NEUROLOGICAL: Gross neurological examination did not reveal any focal deficits. SKIN: No rashes. Assessment and plan Acute kidney injury Nephrotic syndrome Hypoalbuminemia Hypertension Insulin-dependent diabetes mellitus Monitor vital signs Monitor CBC Monitor CMP Strict I's and O's Daily weights Continue Lasix Continue lisinopril HbA1c level is 9.6 Monitor blood sugar levels, currently patient is on her insulin pump Follow-up on nephrology recommendations Labs and medication were reviewed.. Continue same treatment. Continue with symptomatic treatment. Resume home medication. Monitor labs and vitals. DVT and GI prophylaxis. Further recommendations as per clinical course of the patient Dictation was produced using [employer] dictation software. please excuse any grammatical, word or spelling errors. Objective - Vital Signs Vital signs: Vital Signs Temp 97.7 F 10/07/22 08:19 Pulse 104 H 10/07/22 08:19 Resp 18 10/07/22 08:19 BP 142/85 10/07/22 08:19 Pulse Ox 96 10/07/22 08:19 FiO2 Intake & Output 10/06/22 10/07/22 10/07/22 18:59 06:59 18:59 Output Total 400 400 Balance -400 -400 Output: Urine 400 400 Other: Voiding Method Toilet Toilet Toilet # Voids 2 # Bowel Movements 1 - Labs CBC & Chem 7: 10/07/22 04:54 10/07/22 04:54 Labs: Abnormal Lab Results - Last 24 Hours (Table) 10/06/22 10/06/22 10/06/22 Range/Units 11:14 16:40 20:09 WBC (4.50-10.00) X 10*3/uL RBC (4.10-5.20) X 10*6/uL Hgb (12.0-15.0) d/dL Hct (37.2-46.3) % Sodium (137-145) mmol/L BUN (7-17) mg/dL Creatinine (0.52-1.04) mg/dL Glucose (74-99) mg/dL POC Glucose (mg/dL) 183 H 164 H (70-110) mg/dL Hemoglobin A1c (<=6.0) % Calcium (8.4-10.2) mg/dL AST (14-36) U/L ALT (4-34) U/L Total Protein (6.3-8.2) g/dL Albumin (3.5-5.0) g/dL Urine Protein 3+ H (Negative) Urine Glucose (UA) 1+ H (Negative) Urine Blood Small H (Negative) Amorphous Sediment Occasional H (None) /hpf Urine Bacteria Few H (None) /hpf Hyaline Casts 11 H (0-2) /lpf Urine Mucus Rare H (None) /hpf 10/07/22 10/07/22 10/07/22 Range/Units 01:39 04:54 04:54 WBC (4.50-10.00) X 10*3/uL RBC (4.10-5.20) X 10*6/uL Hgb (12.0-15.0) d/dL Hct (37.2-46.3) % Sodium 135 L (137-145) mmol/L BUN 28 H (7-17) mg/dL Creatinine 1.15 H (0.52-1.04) mg/dL Glucose 122 H (74-99) mg/dL POC Glucose (mg/dL) 156 H (70-110) mg/dL Hemoglobin A1c 9.6 H (<=6.0) % Calcium 8.2 L (8.4-10.2) mg/dL AST 39 H (14-36) U/L ALT 35 H (4-34) U/L Total Protein 4.7 L (6.3-8.2) g/dL Albumin 2.1 L (3.5-5.0) g/dL Urine Protein (Negative) Urine Glucose (UA) (Negative) Urine Blood (Negative) Amorphous Sediment (None) /hpf Urine Bacteria (None) /hpf Hyaline Casts (0-2) /lpf Urine Mucus (None) /hpf 10/07/22 10/07/22 Range/Units 04:54 05:43 WBC 10.32 H (4.50-10.00) X 10*3/uL RBC 3.77 L (4.10-5.20) X 10*6/uL Hgb 10.9 L (12.0-15.0) d/dL Hct 34.1 L (37.2-46.3) % Sodium (137-145) mmol/L BUN (7-17) mg/dL Creatinine (0.52-1.04) mg/dL Glucose (74-99) mg/dL POC Glucose (mg/dL) 111 H (70-110) mg/dL Hemoglobin A1c (<=6.0) % Calcium (8.4-10.2) mg/dL AST (14-36) U/L ALT (4-34) U/L Total Protein (6.3-8.2) g/dL Albumin (3.5-5.0) g/dL Urine Protein (Negative) Urine Glucose (UA) (Negative) Urine Blood (Negative) Amorphous Sediment (None) /hpf Urine Bacteria (None) /hpf Hyaline Casts (0-2) /lpf Urine Mucus (None) /hpf
[2022-10-07 17:11] LABS: Glucose,Whole Blood 142 mg/dL (70-110)
[2022-10-07] MEDS: ATORVASTATIN 10 MG TAB PO SCH (20:30)
[2022-10-07] MEDS: lisinopriL 5 MG TAB PO SCH (20:30)
[2022-10-07] MEDS: CYCLOBENZAPRINE 10 MG TAB PO SCH (20:30)
[2022-10-07 20:36] LABS: Glucose,Whole Blood 186 mg/dL (70-110)
[2022-10-08] MEDS: FUROSEMIDE 10 MG/ML 4 ML VIAL IV SCH ×2 (00:33→08:53)
[2022-10-08 06:04] LABS: Glucose,Whole Blood 202 mg/dL (70-110)
[2022-10-08] MEDS: PANTOPRAZOLE 40 MG TABLET PO SCH (06:20)
[2022-10-08] MEDS: INSULIN ASPART (NovoLOG) 100 UNIT/ML VIAL SQ SCH ×4 (06:23→21:58)
[2022-10-08] MEDS: INSULIN PUMP MEAL BOLUS 1 UNIT MISC MISCELLANE SCH ×4 (08:32→21:57)
[2022-10-08] MEDS: FAMOTIDINE 20 MG TAB PO SCH ×2 (08:52→21:56)
[2022-10-08] MEDS: [UNRECOGNIZED DRUG - REMARK] PO SCH (08:52)
[2022-10-08] MEDS: METOPROLOL TARTRATE 25 MG TAB PO SCH ×2 (08:52→21:56)
[2022-10-08] MEDS: lisinopriL 5 MG TAB PO SCH ×2 (08:53→21:56)
[2022-10-08] MEDS: FERROUS SULFATE 325 MG TAB PO SCH (08:53)
[2022-10-08 11:31] LABS: Glucose,Whole Blood 86 mg/dL (70-110)
[2022-10-08 11:57] LABS: ALT 36 U/L (4-34); AST 41 U/L (14-36); African American GFR (CKD) 55 (>60 ml/min/1.73 sqM); Albumin 2.3 g/dL (3.5-5.0); Albumin/Globulin Ratio 0.9; Alkaline Phosphatase 79 U/L (38-126); Anion Gap 1 mmol/L; Blood Urea Nitrogen 31 mg/dL (7-17); Calcium 8.2 mg/dL (8.4-10.2); Carbon Dioxide 26 mmol/L (22-30); Chloride 107 mmol/L (98-107); Globulin 2.7 g/dL; Non-African American GFR(CKD) 48 (>60 ml/min/1.73 sqM); Sodium 134 mmol/L (137-145); Total Bilirubin 0.3 mg/dL (0.2-1.3)
[2022-10-08 12:12] VITALS: BMI 32.3
[2022-10-08 12:15] LABS: Glucose 49 mg/dL (74-99)
--- NOTE | 2022-10-08 13:04 | P.PN ---
Subjective Progress Note Date: 10/08/22 patient is 32-year-old lady with past medical history significant for diabetes and nephrotic syndrome to the ER because of worsening swelling of lower extremities and weight gain. 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 Denies any chest pain. Denies any complaint of shortness of breath. Denies any nausea, vomiting abdominal pain. Denied any increasing frequency of micturition. Denies any hematuria. Because of this weight gain and swelling for extremities, patient came to the ER Initial lab work done in the ER showed WBC 9.1, hemoglobin 11.9, platelet count 223, sodium 134, potassium 4.4, BUN 38, creatinine 1.41 calcium 8.1, AST 39, ALT 39 EKG done in the ER showed sinus tachycardia, ventricular rate of 113, QRS 102, no segment elevation, no T-wave inversion seen Chest x-ray done in the ER showed no acute cardiopulmonary disease 10/07. Patient seen and examined. Sodium this morning is 135, potassium 4.6, BU N 828, creatinine 1.15, HbA1c level is 9.6 10/08. Patient seen and examined. Still has swelling of lower extremities. Denies any shortness of breath REVIEW OF SYSTEMS: CONSTITUTIONAL: No fever, no malaise,. CARDIOVASCULAR: No chest pain, no palpitations, no syncope. PULMONARY: No shortness of breath, no cough, GASTROINTESTINAL: No diarrhea, no nausea, no vomiting, no abdominal pain. NEUROLOGICAL: No headaches, no weakness, PHYSICAL EXAMINATION: GENERAL: The patient is alert and oriented x3, not in any acute distress. Well developed, well nourished. HEENT: Pupils are round and equally reacting to light. EOMI. No scleral icterus. No conjunctival pallor. Normocephalic, atraumatic. No pharyngeal erythema. No thyromegaly. CARDIOVASCULAR: S1 and S2 present. No murmurs, rubs, or gallops. PULMONARY: Chest is clear to auscultation, no wheezing or crackles. ABDOMEN: Soft, nontender, nondistended, normoactive bowel sounds. No palpable organomegaly. MUSCULOSKELETAL: No joint swelling or deformity. EXTREMITIES: 2+ pitting edema lower extremities bilaterally NEUROLOGICAL: Gross neurological examination did not reveal any focal deficits. SKIN: No rashes. Assessment and plan Acute kidney injury Nephrotic syndrome Hypoalbuminemia Hypertension Insulin-dependent diabetes mellitus Monitor vital signs Monitor CBC Monitor CMP Strict I's and O's Daily weights Continue Lasix 40 mg every 8 Continue lisinopril HbA1c level is 9.6 Monitor blood sugar levels, currently patient is on her insulin pump Follow-up on nephrology recommendations Labs and medication were reviewed.. Continue same treatment. Continue with symptomatic treatment. Resume home medication. Monitor labs and vitals. DVT and GI prophylaxis. Further recommendations as per clinical course of the patient Dictation was produced using [employer] dictation software. please excuse any grammatical, word or spelling errors. Objective - Vital Signs Vital signs: Vital Signs Temp 97.8 F 10/08/22 07:19 Pulse 96 10/08/22 07:19 Resp 17 10/08/22 07:19 BP 130/83 10/08/22 07:19 Pulse Ox 98 10/08/22 07:19 FiO2 Intake & Output 10/07/22 10/08/22 10/08/22 18:59 06:59 18:59 Output Total 600 Balance -600 Output: Urine 600 Other: Voiding Method Toilet Toilet # Voids 3 2 # Bowel Movements 1 - Labs CBC & Chem 7: 10/07/22 04:54 10/08/22 11:06 Labs: Abnormal Lab Results - Last 24 Hours (Table) 10/07/22 10/07/22 10/07/22 Range/Units 11:59 17:10 20:34 POC Glucose (mg/dL) 189 H 142 H 186 H (70-110) mg/dL 10/08/22 Range/Units 06:02 POC Glucose (mg/dL) 202 H (70-110) mg/dL
--- NOTE | 2022-10-08 14:09 | P.PN ---
Subjective Patient is seen for follow-up for nephrotic syndrome and volume overload. Patient has underlying biopsy-proven diabetic nephropathy with about 4 g of proteinuria. Currently maintained on IV Lasix. Patient reports minimal improvement in the leg swelling. Lisinopril was decreased yesterday due to complaints of dizziness on standing No urinary complaints Objective - Vital Signs Vital signs: Vital Signs Temp 97.8 F 10/08/22 13:36 Pulse 88 10/08/22 13:36 Resp 16 10/08/22 13:36 BP 126/68 10/08/22 13:36 Pulse Ox 93 L 10/08/22 13:36 FiO2 Intake & Output 10/07/22 10/08/22 10/08/22 18:59 06:59 18:59 Output Total 600 Balance -600 Weight 96.661 kg Output: Urine 600 Other: Voiding Method Toilet Toilet # Voids 3 2 # Bowel Movements 1 - Exam Patient is awake, comfortable, no acute distress. 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 - Labs CBC & Chem 7: 10/07/22 04:54 10/08/22 11:06 Labs: Abnormal Lab Results - Last 24 Hours (Table) 10/07/22 10/07/22 10/08/22 Range/Units 17:10 20:34 06:02 Sodium (137-145) mmol/L BUN (7-17) mg/dL Creatinine (0.52-1.04) mg/dL Glucose (74-99) mg/dL POC Glucose (mg/dL) 142 H 186 H 202 H (70-110) mg/dL Calcium (8.4-10.2) mg/dL AST (14-36) U/L ALT (4-34) U/L Total Protein (6.3-8.2) g/dL Albumin (3.5-5.0) g/dL 10/08/22 Range/Units 11:06 Sodium 134 L (137-145) mmol/L BUN 31 H (7-17) mg/dL Creatinine 1.44 H (0.52-1.04) mg/dL Glucose 49 L* (74-99) mg/dL POC Glucose (mg/dL) (70-110) mg/dL Calcium 8.2 L (8.4-10.2) mg/dL AST 41 H (14-36) U/L ALT 36 H (4-34) U/L Total Protein 5.0 L (6.3-8.2) g/dL Albumin 2.3 L (3.5-5.0) g/dL Assessment and Plan Assessment: 1. Volume overload and significant lower extremity edema secondary to nephrotic syndrome from biopsy-proven diabetic nephropathy. Patient follows at [facility] 2. Nephrotic syndrome secondary to biopsy-proven diabetic nephropathy maintained on CARLOS EDUARDO inhibitor's and Aldactone prior to admission and torsemide 3. Type 1 diabetes diagnosed at age 16 4. Accelerated hypertension exacerbated with volume overload Plan: Change IV Lasix to Lasix drip Decrease lisinopril to 5 mg twice a day Resume Aldactone Continue with vitamin D Repeat labs in a.m. Accurate I's and O's
[2022-10-08] MEDS: FUROSEMIDE 100 MG in SODIUM CHLORIDE 0.9% 90 ML IV SCH (15:15)
[2022-10-08 16:24] LABS: Glucose,Whole Blood 121 mg/dL (70-110)
[2022-10-08 20:44] LABS: Glucose,Whole Blood 155 mg/dL (70-110)
[2022-10-08] MEDS: ATORVASTATIN 10 MG TAB PO SCH (21:56)
[2022-10-08] MEDS: CYCLOBENZAPRINE 10 MG TAB PO SCH (21:56)
[2022-10-09] MEDS: FUROSEMIDE 100 MG in SODIUM CHLORIDE 0.9% 90 ML IV SCH ×2 (05:40→19:26)
[2022-10-09 06:07] LABS: Glucose,Whole Blood 125 mg/dL (70-110)
[2022-10-09] MEDS: INSULIN ASPART (NovoLOG) 100 UNIT/ML VIAL SQ SCH ×4 (06:29→20:57)
[2022-10-09] MEDS: PANTOPRAZOLE 40 MG TABLET PO SCH (06:29)
[2022-10-09] MEDS: INSULIN PUMP MEAL BOLUS 1 UNIT MISC MISCELLANE SCH ×4 (06:29→20:56)
[2022-10-09] MEDS: lisinopriL 5 MG TAB PO SCH ×2 (08:31→20:55)
[2022-10-09] MEDS: FAMOTIDINE 20 MG TAB PO SCH ×2 (08:31→20:56)
[2022-10-09] MEDS: METOPROLOL TARTRATE 25 MG TAB PO SCH ×2 (08:32→20:55)
[2022-10-09] MEDS: [UNRECOGNIZED DRUG - REMARK] PO SCH (08:47)
[2022-10-09 09:11] LABS: ALT 34 U/L (8-44); AST 31 U/L (13-35); Albumin 2.1 d/dL (3.8-4.9); Albumin/Globulin Ratio 1.05 Ratio (1.60-3.17); Alkaline Phosphatase 70 U/L (41-126); BUN/Creat Ratio 24.92 Ratio (12.00-20.00); Blood Urea Nitrogen 32.4 mg/dL (9.0-27.0); Calcium 8.2 mg/dL (8.7-10.3); Carbon Dioxide 24.6 mmol/L (21.6-31.8); Chloride 109 mmol/L (96-109); Glucose 138 mg/dL (70-110); Potassium 3.7 mmol/L (3.5-5.5); Sodium 142 mmol/L (135-145); Total Bilirubin <0.2 mg/dL (0.3-1.2); Total Protein 4.1 d/dL (6.2-8.2)
[2022-10-09 09:14] LABS: Basophils # (A) 0.04 X 10*3/uL (0.00-0.10); Basophils % (A) 0.5 %; Eosinophils # (A) 0.09 X 10*3/uL (0.04-0.35); Eosinophils % (A) 1.2 %; HCT 30.7 % (37.2-46.3); HGB 10.2 d/dL (12.0-15.0); Lymphocytes # (A) 3.49 X 10*3/uL (0.90-5.00); Lymphocytes % (A) 45.4 %; MCH 29.1 pg (27.0-32.0); MCHC 33.2 d/dL (32.0-37.0); MCV 87.7 FL (80.0-97.0); Mean Platelet Volume 10.4 FL (9.5-12.2); Monocytes # (A) 0.63 X 10*3/uL (0.20-1.00); Monocytes % (A) 8.2 %; NRBC Per 100 WBC 0 X 10*3/uL (0.00-0.01); Neutrophils # (A) 3.38 X 10*3/uL (1.80-7.70); Neutrophils % (A) 43.9 %; Platelet Count 248 X 10*3/uL (140-440); RDW 13.2 % (11.5-14.5); WBC 7.69 X 10*3/uL (4.50-10.00)
[2022-10-09 11:26] LABS: Glucose,Whole Blood 164 mg/dL (70-110)
--- NOTE | 2022-10-09 12:58 | P.PN ---
Subjective Patient is seen for follow-up for nephrotic syndrome and volume overload. Patient has underlying biopsy-proven diabetic nephropathy with about 4 g of proteinuria. Started on Lasix drip yesterday. Volume status seems to have improved. Blood pressure is also much better. Next Patient states she feels overall much improved. Serum creatinine down to 1.3. Objective - Vital Signs Vital signs: Vital Signs Temp 98.6 F 10/09/22 07:13 Pulse 96 10/09/22 07:13 Resp 18 10/09/22 10:30 BP 113/80 10/09/22 07:13 Pulse Ox 99 10/09/22 07:13 FiO2 Intake & Output 10/08/22 10/09/22 10/09/22 18:59 06:59 18:59 Intake Total 100 Output Total 300 Balance 100 -300 Weight 96.661 kg Intake: Intake, IV Titration 100 Amount Furosemide 100 mg In 100 Sodium Chloride 0.9% 90 ml @ 5 MG/HR 5 mls/hr IV .Q20H [facility] Rx#:[id number] Output: Urine 300 Other: Voiding Method Toilet Toilet # Voids 6 2 # Bowel Movements 1 - Exam Patient is awake, comfortable, no acute distress. 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 - Labs CBC & Chem 7: 10/09/22 04:23 10/09/22 04:23 Labs: Abnormal Lab Results - Last 24 Hours (Table) 10/08/22 10/08/22 10/09/22 Range/Units 16:23 20:42 04:23 RBC 3.50 L (4.10-5.20) X 10*6/uL Hgb 10.2 L (12.0-15.0) d/dL Hct 30.7 L (37.2-46.3) % BUN (9.0-27.0) mg/dL Est GFR (CKD-EPI) (>=60) BUN/Creatinine Ratio (12.00-20.00) Ratio Glucose (70-110) mg/dL POC Glucose (mg/dL) 121 H 155 H (70-110) mg/dL Calcium (8.7-10.3) mg/dL Total Bilirubin (0.3-1.2) mg/dL Total Protein (6.2-8.2) d/dL Albumin (3.8-4.9) d/dL Albumin/Globulin Ratio (1.60-3.17) Ratio 10/09/22 10/09/22 10/09/22 Range/Units 04:23 06:05 11:25 RBC (4.10-5.20) X 10*6/uL Hgb (12.0-15.0) d/dL Hct (37.2-46.3) % BUN 32.4 H (9.0-27.0) mg/dL Est GFR (CKD-EPI) 55 L (>=60) BUN/Creatinine Ratio 24.92 H (12.00-20.00) Ratio Glucose 138 H (70-110) mg/dL POC Glucose (mg/dL) 125 H 164 H (70-110) mg/dL Calcium 8.2 L (8.7-10.3) mg/dL Total Bilirubin <0.2 L (0.3-1.2) mg/dL Total Protein 4.1 L (6.2-8.2) d/dL Albumin 2.1 L (3.8-4.9) d/dL Albumin/Globulin Ratio 1.05 L (1.60-3.17) Ratio Assessment and Plan Assessment: 1. Volume overload and significant lower extremity edema secondary to nephrotic syndrome from biopsy-proven diabetic nephropathy. Patient follows at [facility] 2. Nephrotic syndrome secondary to biopsy-proven diabetic nephropathy maint ained on CARLOS EDUARDO inhibitor's and Aldactone prior to admission and torsemide 3. Type 1 diabetes diagnosed at age 16 4. Accelerated hypertension exacerbated with volume overload Plan: Continue with Lasix drip Continue with current dose of lisinopril Repeat labs in a.m. Accurate I's and O's Daily weights DC renal diet
--- NOTE | 2022-10-09 14:34 | P.PN ---
Subjective Progress Note Date: 10/09/22 patient is 32-year-old lady with past medical history significant for diabetes and nephrotic syndrome to the ER because of worsening swelling of lower extremities and weight gain. 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 Denies any chest pain. Denies any complaint of shortness of breath. Denies any nausea, vomiting abdominal pain. Denied any increasing frequency of micturition. Denies any hematuria. Because of this weight gain and swelling for extremities, patient came to the ER Initial lab work done in the ER showed WBC 9.1, hemoglobin 11.9, platelet count 223, sodium 134, potassium 4.4, BUN 38, creatinine 1.41 calcium 8.1, AST 39, ALT 39 EKG done in the ER showed sinus tachycardia, ventricular rate of 113, QRS 102, no segment elevation, no T-wave inversion seen Chest x-ray done in the ER showed no acute cardiopulmonary disease 10/07. Patient seen and examined. Sodium this morning is 135, potassium 4.6, BU N 828, creatinine 1.15, HbA1c level is 9.6 10/08. Patient seen and examined. Still has swelling of lower extremities. Denies any shortness of breath 10/09. Patient seen and examined. Labs this morning sodium 142, potassium 3.7, BUN 32, creatinine 1.3. States she has lost 10 pounds REVIEW OF SYSTEMS: CONSTITUTIONAL: No fever, no malaise,. CARDIOVASCULAR: No chest pain, no palpitations, no syncope. PULMONARY: No shortness of breath, no cough, GASTROINTESTINAL: No diarrhea, no nausea, no vomiting, no abdominal pain. NEUROLOGICAL: No headaches, no weakness, PHYSICAL EXAMINATION: GENERAL: The patient is alert and oriented x3, not in any acute distress. Well developed, well nourished. HEENT: Pupils are round and equally reacting to light. EOMI. No scleral icterus. No conjunctival pallor. Normocephalic, atraumatic. No pharyngeal erythema. No thyromegaly. CARDIOVASCULAR: S1 and S2 present. No murmurs, rubs, or gallops. PULMONARY: Chest is clear to auscultation, no wheezing or crackles. ABDOMEN: Soft, nontender, nondistended, normoactive bowel sounds. No palpable organomegaly. MUSCULOSKELETAL: No joint swelling or deformity. EXTREMITIES: 2+ pitting edema lower extremities bilaterally NEUROLOGICAL: Gross neurological examination did not reveal any focal deficits. SKIN: No rashes. Assessment and plan Acute kidney injury Nephrotic syndrome Hypoalbuminemia Hypertension Insulin-dependent diabetes mellitus Monitor vital signs Monitor CBC Monitor CMP Strict I's and O's Daily weights Continue Lasix drip Continue lisinopril HbA1c level is 9.6 Monitor blood sugar levels, currently patient is on her insulin pump Follow-up on nephrology recommendations Labs and medication were reviewed.. Continue same treatment. Continue with symptomatic treatment. Resume home medication. Monitor labs and vitals. DVT and GI prophylaxis. Further recommendations as per clinical course of the patient Dictation was produced using [employer] dictation software. please excuse any grammatical, word or spelling errors. Objective - Vital Signs Vital signs: Vital Signs Temp 98.6 F 10/09/22 07:13 Pulse 96 10/09/22 07:13 Resp 17 10/09/22 07:13 BP 113/80 10/09/22 07:13 Pulse Ox 99 10/09/22 07:13 FiO2 Intake & Output 10/08/22 10/09/22 10/09/22 18:59 06:59 18:59 Intake Total 100 Balance 100 Weight 96.661 kg Intake: Intake, IV Titration 100 Amount Furosemide 100 mg In 100 Sodium Chloride 0.9% 90 ml @ 5 MG/HR 5 mls/hr IV .Q20H [facility] Rx#:[id number] Other: Voiding Method Toilet # Voids 6 2 # Bowel Movements 1 - Labs CBC & Chem 7: 10/09/22 04:23 10/09/22 04:23 Labs: Abnormal Lab Results - Last 24 Hours (Table) 10/08/22 10/08/22 10/08/22 Range/Units 11:06 16:23 20:42 RBC (4.10-5.20) X 10*6/uL Hgb (12.0-15.0) d/dL Hct (37.2-46.3) % Sodium 134 L (137-145) mmol/L BUN 31 H (7-17) mg/dL Creatinine 1.44 H (0.52-1.04) mg/dL Est GFR (CKD-EPI) (>=60) BUN/Creatinine Ratio (12.00-20.00) Ratio Glucose 49 L* (74-99) mg/dL POC Glucose (mg/dL) 121 H 155 H (70-110) mg/dL Calcium 8.2 L (8.4-10.2) mg/dL Total Bilirubin (0.3-1.2) mg/dL AST 41 H (14-36) U/L ALT 36 H (4-34) U/L Total Protein 5.0 L (6.3-8.2) g/dL Albumin 2.3 L (3.5-5.0) g/dL Albumin/Globulin Ratio (1.60-3.17) Ratio 10/09/22 10/09/22 10/09/22 Range/Units 04:23 04:23 06:05 RBC 3.50 L (4.10-5.20) X 10*6/uL Hgb 10.2 L (12.0-15.0) d/dL Hct 30.7 L (37.2-46.3) % Sodium (137-145) mmol/L BUN 32.4 H (7-17) mg/dL Creatinine (0.52-1.04) mg/dL Est GFR (CKD-EPI) 55 L (>=60) BUN/Creatinine Ratio 24.92 H (12.00-20.00) Ratio Glucose 138 H (74-99) mg/dL POC Glucose (mg/dL) 125 H (70-110) mg/dL Calcium 8.2 L (8.4-10.2) mg/dL Total Bilirubin <0.2 L (0.3-1.2) mg/dL AST (14-36) U/L ALT (4-34) U/L Total Protein 4.1 L (6.3-8.2) g/dL Albumin 2.1 L (3.5-5.0) g/dL Albumin/Globulin Ratio 1.05 L (1.60-3.17) Ratio
[2022-10-09 16:28] LABS: Glucose,Whole Blood 127 mg/dL (70-110)
[2022-10-09 20:48] LABS: Glucose,Whole Blood 155 mg/dL (70-110)
[2022-10-09] MEDS: CYCLOBENZAPRINE 10 MG TAB PO SCH (20:55)
[2022-10-09] MEDS: ATORVASTATIN 10 MG TAB PO SCH (20:56)
[2022-10-10 06:00] LABS: Glucose,Whole Blood 203 mg/dL (70-110)
[2022-10-10] MEDS: INSULIN PUMP MEAL BOLUS 1 UNIT MISC MISCELLANE SCH ×3 (06:25→17:38)
[2022-10-10] MEDS: INSULIN ASPART (NovoLOG) 100 UNIT/ML VIAL SQ SCH ×3 (06:26→17:38)
[2022-10-10] MEDS: PANTOPRAZOLE 40 MG TABLET PO SCH (06:26)
[2022-10-10 07:46] VITALS: BP 140/97; PULSE 99; TEMP 98.4
[2022-10-10] MEDS: lisinopriL 5 MG TAB PO SCH (08:34)
[2022-10-10] MEDS: [UNRECOGNIZED DRUG - REMARK] PO SCH (08:34)
[2022-10-10] MEDS: METOPROLOL TARTRATE 25 MG TAB PO SCH (08:34)
[2022-10-10] MEDS: FERROUS SULFATE 325 MG TAB PO SCH (08:34)
[2022-10-10] MEDS: FAMOTIDINE 20 MG TAB PO SCH (08:34)
[2022-10-10 10:34] VITALS: RESP 18
[2022-10-10 11:08] LABS: Glucose,Whole Blood 121 mg/dL (70-110)
[2022-10-10 11:10] LABS: Basophils # (A) 0.03 X 10*3/uL (0.00-0.10); Basophils % (A) 0.4 %; Eosinophils # (A) 0.06 X 10*3/uL (0.04-0.35); Eosinophils % (A) 0.8 %; HCT 36.4 % (37.2-46.3); HGB 11.6 d/dL (12.0-15.0); Lymphocytes # (A) 3.13 X 10*3/uL (0.90-5.00); Lymphocytes % (A) 41.3 %; MCH 28.6 pg (27.0-32.0); MCHC 31.9 d/dL (32.0-37.0); MCV 89.9 FL (80.0-97.0); Mean Platelet Volume 10.3 FL (9.5-12.2); Monocytes % (A) 6.6 %; NRBC Per 100 WBC 0 X 10*3/uL (0.00-0.01); Neutrophils # (A) 3.82 X 10*3/uL (1.80-7.70); Neutrophils % (A) 50.4 %; Platelet Count 313 X 10*3/uL (140-440); RBC 4.05 X 10*6/uL (4.10-5.20); RDW 13.1 % (11.5-14.5); WBC 7.58 X 10*3/uL (4.50-10.00)
--- NOTE | 2022-10-10 12:03 | P.DS ---
Providers Date of admission: 10/08/22 10:11 Expected date of discharge: 10/10/22 Attending physician: Stacey Dunn Consults: 10/06/22 00:38 Consult Physician Routine Consulting Provider: Shirley Damon Consult Reason/Comments: Acute kidney injury. History of nephrotic syndrome. Diabetic nephropathy Do you want consulting provider notified?: Yes Primary care physician: Mohit Curran Hospital Course: Discharge diagnoses; Acute kidney injury Nephrotic syndrome Hypoalbuminemia Hypertension Insulin-dependent diabetes mellitus Hospital course; patient is 32-year-old lady with past medical history significant for diabetes and nephrotic syndrome to the ER because of worsening swelling of lower extremities and weight gain. 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 Denies any chest pain. Denies any complaint of shortness of breath. Denies any nausea, vomiting abdominal pain. Denied any increasing frequency of micturition. Denies any hematuria. Because of this weight gain and swelling for extremities, patient came to the ER Initial lab work done in the ER showed WBC 9.1, hemoglobin 11.9, platelet count 223, sodium 134, potassium 4.4, BUN 38, creatinine 1.41 calcium 8.1, AST 39, ALT 39 EKG done in the ER showed sinus tachycardia, ventricular rate of 113, QRS 102, no segment elevation, no T-wave inversion seen Chest x-ray done in the ER showed no acute cardiopulmonary disease 10/07. Patient seen and examined. Sodium this morning is 135, potassium 4.6, BUN 828, creatinine 1.15, HbA1c level is 9.6 10/08. Patient seen and examined. Still has swelling of lower extremities. Denies any shortness of breath 10/09. Patient seen and examined. Labs this morning sodium 142, potassium 3.7, BUN 32, creatinine 1.3. States she has lost 10 pounds 10/10. Patient seen and examined. keen to go home today. Discussed with nephrology, recommend discharging patient on Demadex 30 mg twice a day, becca nopril 5 mg. Twice a day, Aldactone 25 mg daily. Outpatient follow-up with nephrology in 1 week PHYSICAL EXAMINATION: GENERAL: The patient is alert and oriented x3, not in any acute distress. Well developed, well nourished. HEENT: Pupils are round and equally reacting to light. EOMI. No scleral icterus. No conjunctival pallor. Normocephalic, atraumatic. No pharyngeal erythema. No thyromegaly. CARDIOVASCULAR: S1 and S2 present. No murmurs, rubs, or gallops. PULMONARY: Chest is clear to auscultation, no wheezing or crackles. ABDOMEN: Soft, nontender, nondistended, normoactive bowel sounds. No palpable organomegaly. MUSCULOSKELETAL: No joint swelling or deformity. EXTREMITIES: 1+ pitting edema lower extremities bilaterally NEUROLOGICAL: Gross neurological examination did not reveal any focal deficits. SKIN: No rashes. Dictation was produced using [employer] dictation software. please excuse any grammatical, word or spelling errors. Patient Condition at Discharge: Fair Plan - Discharge Summary Discharge Rx Participant: No New Discharge Prescriptions: New Spironolactone [Aldactone] 25 mg PO DAILY #30 tablet lisinopriL [Zestril] 5 mg PO BID #30 tab Torsemide [Demadex] 30 mg PO BID #90 tablet Continue Insulin Aspart (For Pump) [NovoLOG (For Pump)] 0.01 unit SQ-PUMP CONTINUOUS MDD 70 UNITS Cyclobenzaprine [Flexeril] 10 mg PO HS Atorvastatin [Lipitor] 10 mg PO HS LORazepam [Ativan] 0.5 mg PO HS PRN PRN Reason: Anxiety Ferrous Sulfate [Feosol] 325 mg PO Q2D Omeprazole 20 mg PO DAILY Metoprolol Tartrate [Lopressor] 25 mg PO BID Cyclobenzaprine [Flexeril] 10 mg PO HS Cholecalciferol (Vitamin D3) [Vitamin D3] 1,250 mcg PO MO Dextroamphetamine/Amphetamine [Adderall] 20 mg PO DAILY Discontinued lisinopriL [Zestril] 10 mg PO DAILY Discharge Medication List Insulin Aspart (For Pump) [NovoLOG (For Pump)] 0.01 unit SQ-PUMP CONTINUOUS MDD 70 UNITS 11/08/17 [History] Cyclobenzaprine [Flexeril] 10 mg PO HS 04/15/22 [History] Ferrous Sulfate [Feosol] 325 mg PO Q2D 04/15/22 [History] Metoprolol Tartrate [Lopressor] 25 mg PO BID 07/10/22 [History] Omeprazole 20 mg PO DAILY 07/10/22 [History] Atorvastatin [Lipitor] 10 mg PO HS 10/06/22 [History] Cholecalciferol (Vitamin D3) [Vitamin D3] 1,250 mcg PO MO 10/06/22 [History] Cyclobenzaprine [Flexeril] 10 mg PO HS 10/06/22 [History] Dextroamphetamine/Amphetamine [Adderall] 20 mg PO DAILY 10/06/22 [History] LORazepam [Ativan] 0.5 mg PO HS PRN 10/06/22 [History] Spironolactone [Aldactone] 25 mg PO DAILY #30 tablet 10/10/22 [Rx] Torsemide [Demadex] 30 mg PO BID #90 tablet 10/10/22 [Rx] lisinopriL [Zestril] 5 mg PO BID #30 tab 10/10/22 [Rx] Follow up Appointment(s)/Referral(s): Mohit Curran MD [Primary Care Provider] - 10/14/22 11:30 am Shirley Damon MD [STAFF PHYSICIAN] - 11/17/22 1:00 pm ([place] office)
[2022-10-10 13:21] LABS: ALT 31 U/L (8-44); AST 28 U/L (13-35); Albumin 2.3 d/dL (3.8-4.9); Alkaline Phosphatase 74 U/L (41-126); BUN/Creat Ratio 25.75 Ratio (12.00-20.00); Blood Urea Nitrogen 41.2 mg/dL (9.0-27.0); Calcium 8.6 mg/dL (8.7-10.3); Carbon Dioxide 23.4 mmol/L (21.6-31.8); Chloride 107 mmol/L (96-109); Globulin 2.1 d/dL (1.6-3.3); Glucose 164 mg/dL (70-110); Potassium 4.3 mmol/L (3.5-5.5); Sodium 140 mmol/L (135-145); Total Bilirubin <0.2 mg/dL (0.3-1.2); Total Protein 4.4 d/dL (6.2-8.2)
[2022-10-10] MEDS: FUROSEMIDE 100 MG in SODIUM CHLORIDE 0.9% 90 ML IV SCH (16:39)
[2022-10-10 17:39] LABS: Glucose,Whole Blood 163 mg/dL (70-110)
--- NOTE | 2022-10-12 09:12 | P.PN ---
Subjective Patient is seen for follow-up for nephrotic syndrome and volume overload. Patient has underlying biopsy-proven diabetic nephropathy with about 4 g of proteinuria. Started on Lasix drip yesterday. Volume status seems to have improved. Blood pressure is also much better. Patient states she feels overall much improved. Serum creatinine down to 1.3, it is 1.6 today. Wants to go home. Objective - Vital Signs Vital signs: Vital Signs Temp 98.4 F 10/10/22 07:10 Pulse 99 10/10/22 07:10 Resp 18 10/10/22 10:29 BP 140/97 10/10/22 07:10 Pulse Ox 98 10/10/22 07:10 FiO2 - Exam Patient is awake, comfortable, no acute distress. 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 Volume overload and significant lower extremity edema secondary to nephrotic syndrome from biopsy-proven diabetic nephropathy. Patient follows at [facility] 2. Nephrotic syndrome secondary to biopsy-proven diabetic nephropathy maintained on CARLOS EDUARDO inhibitor's and Aldactone prior to admission and torsemide 3. Type 1 diabetes diagnosed at age 16 4. Accelerated hypertension exacerbated with volume overload Plan: Patient can be discharged Continue with current dose of lisinopril Torsemide 30mg bid. Continue aldactone 25 mg daily. F/u as op in 1 week
== END 2022-10-10 20:12 | disposition home or self-care (01) | DRG 700 ==
LOC: EC 19:27 → 6NMEDSUR 10-06 00:38 → 4SSUR 10-06 02:41 → OBSVTOIN 10-08 10:11 → 4SSUR 10-10 00:41
PROVIDERS: ADMIT Hospitalist; ATTEND Hospitalist
DX: E10.21 Type 1 diabetes mellitus with diabetic nephropathy (principal); N17.9 Acute kidney failure, unspecified; E88.09 Other disorders of plasma-protein metabolism, not elsewhere classified; E10.22 Type 1 diabetes mellitus with diabetic chronic kidney disease; K21.9 Gastro-esophageal reflux disease without esophagitis; N18.1 Chronic kidney disease, stage 1; I12.9 Hypertensive chronic kidney disease with stage 1 through stage 4 chronic kidney disease, or unspecified chronic kidney disease; J45.909 Unspecified asthma, uncomplicated; R00.0 Tachycardia, unspecified; F32.A Depression, unspecified; N18.9 Chronic kidney disease, unspecified; F41.9 Anxiety disorder, unspecified; E87.70 Fluid overload, unspecified; Z79.4 Long term (current) use of insulin; F90.9 Attention-deficit hyperactivity disorder, unspecified type; Z87.441 Personal history of nephrotic syndrome; Z96.41 Presence of insulin pump (external) (internal); Z79.899 Other long term (current) drug therapy; Z87.891 Personal history of nicotine dependence
CPT/HCPCS: 36415; 71046; 76770; 80053; 81001; 82570; 83036; 83880; 84156; 84484; 85025; 85610; 85730; 93005

== ENCOUNTER → 2022-12-01 | Outpatient (CLI) | payer BC ==
--- NOTE | 2022-12-01 15:28 | XR ---
EXAMINATION TYPE: XR chest 2V DATE OF EXAM: 12/01/2022 3:23 PM COMPARISON: Chest radiographs from 10/05/2022 TECHNIQUE: XR chest 2V Frontal and lateral views of the chest. CLINICAL INDICATION:Female, 32 years old with history of J18.9 CHEST XRAY; FINDINGS: Lungs/Pleura: There is no evidence of pleural effusion, focal consolidation, or pneumothorax. Pulmonary vascularity: Unremarkable. Heart/mediastinum: Cardiomediastinal silhouette is unremarkable. Musculoskeletal: No acute osseous pathology. IMPRESSION: No acute cardiopulmonary disease/process. No significant change from prior examination.
== END | disposition home or self-care (01) ==
LOC: RADXRMAIN 15:08
PROVIDERS: ATTEND Family Medicine
DX: J18.9 Pneumonia, unspecified organism (principal)
CPT/HCPCS: 71046

== ENCOUNTER 2022-12-17 18:34 | Inpatient (IN) | payer BC ==
[2022-12-17 18:42] LABS: Glucose,Whole Blood 235 mg/dL (70-110)
[2022-12-17] MEDS ORDERED: SODIUM CHLORIDE 0.9% 1,000 ML IV STA (19:24)
[2022-12-17] MEDS ORDERED: ONDANSETRON 4 MG/2 ML VIAL IVP STA (19:24)
--- NOTE | 2022-12-17 19:54 | ED ---
General Adult HPI - General Chief complaint: Nausea/Vomiting/Diarrhea Stated complaint: Fever,Type 1 Carissa Time Seen by Provider: 12/17/22 18:49 Source: patient Mode of arrival: wheelchair Limitations: no limitations - History of Present Illness Initial comments: 32-year-old female presents to the emergency department with nausea, inability to eat or drink, body aches. States that she has had symptoms for the past day. Mother is at bedside and helps supplement the history. States the patient was not feeling well 2 weeks ago. She saw her primary care doctor and was sent for chest x-ray. She was placed on antibiotics however they do not remember the name. Patient took the whole course however continues to feel ill. She continues to report palpitations, decreased oral intake, nonproductive cough. She denies any sick contacts with similar symptoms. She reports to intermittent fevers and full body myalgias. Denies ear pain or sore throat. No chest pain. Denies any abdominal pain. She has had a few episodes of loose watery stool. No black or bloody stools. No dysuria, hematuria or difficulty voiding. No concern for as she has an IUD. Patient is a type I diabetic with an insulin pump. States her sugars have been running in the 300s which is high for her. She also has a history of nephrotic syndrome and has had worsening lower extremity edema. Her firearms expert is Dr. Damon. No other alleviating, precipitating or modifying factors - Related Data Home Medications Medication Instructions Recorded Confirmed Insulin Aspart (For Pump) [NovoLOG 0.01 unit SQ-PUMP CONTINUOUS 11/08/17 12/17/22 (For Pump)] Metoprolol Tartrate [Lopressor] 12.5 mg PO BID 07/10/22 12/17/22 Omeprazole 20 mg PO BID 07/10/22 12/17/22 Atorvastatin [Lipitor] 10 mg PO HS 10/06/22 12/17/22 Cholecalciferol (Vitamin D3) 1,250 mcg PO TU 10/06/22 12/17/22 [Vitamin D3] Cyclobenzaprine [Flexeril] 10 mg PO HS 10/06/22 12/17/22 LORazepam [Ativan] 0.5 mg PO HS PRN 10/06/22 12/17/22 Diphenoxylate HCl/Atropine 2 tab PO TID PRN 12/17/22 12/17/22 [Lomotil 2.5-0.025 mg Tablet] Propranolol [Inderal] 10 mg PO DAILY 12/17/22 12/17/22 SUMAtriptan succinate [Imitrex] 50 mg PO BID PRN 12/17/22 12/17/22 Selenium Sulfide 1 applic TOPICAL DIRECTED PRN 12/17/22 12/17/22 Previous Rx's Medication Instructions Recorded Torsemide [Demadex] 30 mg PO BID #90 tablet 10/10/22 lisinopriL [Zestril] 5 mg PO BID #30 tab 10/10/22 Allergies Allergy/AdvReac Type Severity Reaction Status Date / Time cephalexin [From Keflex] Allergy Swelling Verified 12/17/22 22:08 (tongue) midazolam [From Versed] AdvReac very Verified 12/17/22 22:08 anxious feeling Review of Systems ROS Statement: Those systems with pertinent positive or pertinent negative responses have been documented in the HPI. ROS Other: All systems not noted in ROS Statement are negative. Past Medical History Past Medical History: Asthma, Diabetes Mellitus, GERD/Reflux, Hypertension, Renal Disease Additional Past Medical History / Comment(s): hx. hiatal hernia, diabetic- TYPE 1 chronic kidney disease-protein in urine , albumin, MIGRAINE HEADACHES, CHILDHOOD ASTHMA, neuropathy in feet and legs, diabetic neuropathy History of Any Multi-Drug Resistant Organisms: MRSA Date of last positivie culture/infection: 2009 MDRO Source:: abdomen left side Past Surgical History: Section Additional Past Surgical History / Comment(s): surgery on cervix for abnormal cells, surgery groin area for grown hairs. bilateral cataract surgery with implants, Past Anesthesia/Blood Transfusion Reactions: No Reported Reaction, Motion Sickness Additional Past Anesthesia/Blood Transfusion Reaction / Comment(s): Pt has clausterphobia. Past Psychological History: ADD/ADHD, Anxiety, Depression Smoking Status: Former smoker Past Alcohol Use History: Occasional Past Drug Use History: None Reported - Past Family History Mother Family Medical History: No Reported History, Thyroid Disorder Additional Family Medical History / Comment(s): gestational diabetes Father Family Medical History: No Reported History Additional Family Medical History / Comment(s): crohnes disease General Exam Limitations: no limitations General appearance: alert, in no apparent distress Head exam: Present: atraumatic, normocephalic, normal inspection Eye exam: Present: normal appearance, PERRL, EOMI. Absent: scleral icterus, conjunctival injection, periorbital swelling ENT exam: Present: normal exam, mucous membranes moist Neck exam: Present: normal inspection. Absent: tenderness, meningismus, lymphadenopathy Respiratory exam: Present: normal lung sounds bilaterally. Absent: respiratory distress, wheezes, rales, rhonchi, stridor Cardiovascular Exam: Present: normal rhythm, tachycardia, normal heart sounds. Absent: systolic murmur, diastolic murmur, rubs, gallop, clicks GI/Abdominal exam: Present: soft, normal bowel sounds. Absent: distended, tenderness, guarding, rebound, rigid Extremities exam: Present: full ROM, normal capillary refill, pedal edema. Absent: tenderness, joint swelling, calf tenderness Back exam: Present: normal inspection Neurological exam: Present: alert, oriented X3, CN II-XII intact Psychiatric exam: Present: normal affect, normal mood Skin exam: Present: warm, dry, intact, normal color. Absent: rash Course Vital Signs 12/17/22 12/17/22 12/17/22 18:41 19:13 20:00 Temperature 98.5 F 98.5 F Pulse Rate 137 H 125 H 113 H Respiratory 18 20 Rate Blood Pressure 139/81 O2 Sat by Pulse 99 Oximetry 12/17/22 12/17/22 21:04 22:00 Temperature Pulse Rate 107 H 107 H Respiratory Rate Blood Pressure O2 Sat by Pulse Oximetry Medical Decision Making - Medical Decision Making Was pt. sent in by a medical professional or institution (, PA, SENIOR FIELD ENGINEER, urgent care, hospital, or care home...) When possible be specific @ -No Did you speak to anyone other than the patient for history (EMS, parent, family, police, friend...)? What history was obtained from this source @ -Spoke with the patient's mother Did you review nursing and triage notes (agree or disagree)? Why? @ -I reviewed and agree with nursing and triage notes Were old charts reviewed (outside hosp., previous admission, EMS record, old EKG, old radiological studies, urgent care reports/EKG's, care home records)? Report findings @ -No old charts were reviewed Differential Diagnosis (chest pain, altered mental status, abdominal pain women, abdominal pain men, vaginal bleeding, weakness, fever, dyspnea, syncope, headache, dizziness, GI bleed, back pain, seizure, CVA, palpatations, mental health, musculoskeletal)? @ -Differential Fever: Pneumonia, viral URI, endocarditis, myocarditis, pericarditis, otitis, sinusitis, peritonsillar Abscess, retropharyngeal Abscess, epiglottitis, peritonitis, appendicitis, Babs cystitis, diverticulitis, hepatitis, colitis, UTI, PID, TOA, pyelonephritis, prostatitis, epididymitis, meningitis, encephalitis, pulmonary embolism, CVA, thyroid storm, pancreatitis, adrenal crisis, cavernous sinus thrombosis, this is not meant to be an all-inclusive list. EKG interpreted by me (3pts min.). @ -Yes and demonstrates sinus tachycardia with a rate of 119. [place] interval 121. QRS 98. QTC 388. No acute ST segment elevations or depressions X-rays interpreted by me (1pt min.). @ -Yes and demonstrates no acute intrathoracic process CT interpreted by me (1pt min.). @ -None done U/S interpreted by me (1pt. min.). @ -None done What testing was considered but not performed or refused? (CT, X-rays, U/S, labs)? Why? @ -None What meds were considered but not given or refused? Why? @ -None Did you discuss the management of the patient with other professionals (professionals i.e. , PA, SENIOR FIELD ENGINEER, lab, RT, psych nurse, social economist, fire technology instructor, teacher, community services officer, case management assistant)? Give summary @ -Spoke with Sonia from [facility] to admit patient Was smoking cessation discussed for >3mins.? @ -No Was critical care preformed (if so, how long)? @ -No Were there social determinants of health that impacted care today? How? (Homelessness, low income, unemployed, alcoholism, drug addiction, transportation, low edu. Level, literacy, decrease access to med. care, skilled nursing, rehab)? @ -No Was there de-escalation of care discussed even if they declined (Discuss DNR or withdrawal of care, Hospice)? DNR status @ -No What co-morbidities impacted this encounter? (DM, HTN, Smoking, COPD, CAD, Cancer, CVA, ARF, Chemo, Hep., AIDS, mental health diagnosis, sleep apnea, morbid obesity)? @ -Nephrotic syndrome, type 1 diabetes, hypertension Was patient admitted / discharged? Hospital course, mention meds given and route, prescriptions, significant lab abnormalities, going to OR and other pertinent info. @ -Upon arrival patient was placed into room 3. Thorough history and physical exam was performed. Patient is markedly tachycardic with a heart rate of 138. She does have some lower extremity edema. Reporting poor oral intake. IV is established and patient was given a liter bolus normal saline. Laboratory studies are conducted. Chest x-ray was performed. Upon return of the results they are discussed with the patient's. Heart rate has improved with fluid administration. Patient is mildly hyponatremic and hyperkalemic. I did recommend overnight observation for continued fluid hydration with consultation by Dr. Damon because of her nephrotic syndrome. Patient agreed to admission reporting that she felt too weak to go home. I called and spoke with Sonia from [facility] agree to admit the patient Undiagnosed new problem with uncertain prognosis? @ -yes Drug Therapy requiring intensive monitoring for toxicity (Heparin, Nitro, Insulin, Cardizem)? @ -No Were any procedures done? @ -No Diagnosis/symptom? @ -Acute nausea, acute myalgias, acute Covid infection, sinus tachycardia, acute hyponatremia, acute hyperkalemia, history of nephrotic syndrome Acute, or Chronic, or Acute on Chronic? @ -Acute Uncomplicated (without systemic symptoms) or Complicated (systemic symptoms)? @ -Complicated Side effects of treatment? @ -No Exacerbation, Progression, or Severe Exacerbation? @ -No Poses a threat to life or bodily function? How? (Chest pain, [place], [place], pneumonia, PE, COPD, DKA, ARF, appy, cholecystitis, CVA, Diverticulitis, Homicidal, Suicid al, threat to staff... and all critical care pts) @ -No - Lab Data Result diagrams: 12/17/22 19:31 12/17/22 19:31 Lab Results 12/17/22 12/17/22 12/17/22 Range/Units 18:41 19:31 19:31 WBC 12.6 H (3.8-10.6) k/uL RBC 3.58 L (3.80-5.40) m/uL Hgb 10.6 L (11.4-16.0) gm/dL Hct 31.7 L (34.0-46.0) % MCV 88.6 (80.0-100.0) fL MCH 29.5 (25.0-35.0) pg MCHC 33.3 (31.0-37.0) g/dL RDW 13.4 (11.5-15.5) % Plt Count 231 (150-450) k/uL MPV 8.1 Neutrophils % 85 % Lymphocytes % 9 % Monocytes % 4 % Eosinophils % 0 % Basophils % 0 % Neutrophils # 10.8 H (1.3-7.7) k/uL Lymphocytes # 1.2 (1.0-4.8) k/uL Monocytes # 0.5 (0-1.0) k/uL Eosinophils # 0.0 (0-0.7) k/uL Basophils # 0.0 (0-0.2) k/uL Sodium 128 L (137-145) mmol/L Potassium 5.5 H (3.5-5.1) mmol/L Chloride 103 (98-107) mmol/L Carbon Dioxide 20 L (22-30) mmol/L Anion Gap 5 mmol/L BUN 28 H (7-17) mg/dL Creatinine 1.15 H (0.52-1.04) mg/dL Est GFR (CKD-EPI)AfAm 72 (>60 ml/min/1.73 sqM) Est GFR (CKD-EPI)NonAf 62 (>60 ml/min/1.73 sqM) Glucose 212 H (74-99) mg/dL POC Glucose (mg/dL) 235 H (70-110) mg/dL POC Glu Pipe Buffer ID Saud Valdez Plasma Lactic Acid Reggie (0.7-2.0) mmol/L Calcium 8.5 (8.4-10.2) mg/dL Magnesium 1.6 (1.6-2.3) mg/dL Total Bilirubin 0.4 (0.2-1.3) mg/dL AST 66 H (14-36) U/L ALT 70 H (4-34) U/L Alkaline Phosphatase 142 H (38-126) U/L Total Protein 5.5 L (6.3-8.2) g/dL Albumin 2.6 L (3.5-5.0) g/dL TSH 1.140 (0.465-4.680) mIU/L Acetone, Qual Negative (Negative) Influenza Type A (PCR) (Not Detectd) Influenza Type B (PCR) (Not Detectd) RSV (PCR) (Not Detectd) SARS-CoV-2 (PCR) (Not Detectd) 12/17/22 12/17/22 Range/Units 19:31 19:32 WBC (3.8-10.6) k/uL RBC (3.80-5.40) m/uL Hgb (11.4-16.0) gm/dL Hct (34.0-46.0) % MCV (80.0-100.0) fL MCH (25.0-35.0) pg MCHC (31.0-37.0) g/dL RDW (11.5-15.5) % Plt Count (150-450) k/uL MPV Neutrophils % % Lymphocytes % % Monocytes % % Eosinophils % % Basophils % % Neutrophils # (1.3-7.7) k/uL Lymphocytes # (1.0-4.8) k/uL Monocytes # (0-1.0) k/uL Eosinophils # (0-0.7) k/uL Basophils # (0-0.2) k/uL Sodium (137-145) mmol/L Potassium (3.5-5.1) mmol/L Chloride (98-107) mmol/L Carbon Dioxide (22-30) mmol/L Anion Gap mmol/L BUN (7-17) mg/dL Creatinine (0.52-1.04) mg/dL Est GFR (CKD-EPI)AfAm (>60 ml/min/1.73 sqM) Est GFR (CKD-EPI)NonAf (>60 ml/min/1.73 sqM) Glucose (74-99) mg/dL POC Glucose (mg/dL) (70-110) mg/dL POC Glu Pipe Buffer ID Plasma Lactic Acid Reggie 1.8 (0.7-2.0) mmol/L Calcium (8.4-10.2) mg/dL Magnesium (1.6-2.3) mg/dL Total Bilirubin (0.2-1.3) mg/dL AST (14-36) U/L ALT (4-34) U/L Alkaline Phosphatase (38-126) U/L Total Protein (6.3-8.2) g/dL Albumin (3.5-5.0) g/dL TSH (0.465-4.680) mIU/L Acetone, Qual (Negative) Influenza Type A (PCR) Not Detected (Not Detectd) Influenza Type B (PCR) Not Detected (Not Detectd) RSV (PCR) Not Detected (Not Detectd) SARS-CoV-2 (PCR) Detected A (Not Detectd) Disposition Clinical Impression: Nausea, Tachycardia, Peripheral edema, Hyperkalemia, Hyponatremia, COVID-19 Disposition: ADMITTED IP TO THIS [facility] Condition: Stable Is patient prescribed a controlled substance at d/c from ED?: No Time of Disposition: 21:25 Decision to Admit Reason: Admit from EC Decision Date: 12/17/22 Decision Time: 21:25
--- NOTE | 2022-12-17 20:06 | XR ---
EXAMINATION TYPE: XR chest 2V DATE OF EXAM: 12/17/2022 COMPARISON: Chest x-ray December 01, 2022 HISTORY: Weakness. TECHNIQUE: Frontal and lateral views of the chest are obtained. FINDINGS: There is no focal air space opacity, pleural effusion, or pneumothorax seen. The cardiac silhouette size is stable and within normal limits. The osseous structures are intact. IMPRESSION: No acute cardiopulmonary process. No significant change from prior
[2022-12-17 20:09] LABS: Basophils % (A) 0 %; Eosinophils % (A) 0 %; HCT 31.7 % (34.0-46.0); HGB 10.6 gm/dL (11.4-16.0); Lymphocytes # (A) 1.2 k/uL (1.0-4.8); Lymphocytes % (A) 9 %; MCH 29.5 pg (25.0-35.0); MCHC 33.3 g/dL (31.0-37.0); MCV 88.6 fL (80.0-100.0); Mean Platelet Volume 8.1; Monocytes # (A) 0.5 k/uL (0-1.0); Monocytes % (A) 4 %; Neutrophils # (A) 10.8 k/uL (1.3-7.7); Neutrophils % (A) 85 %; Platelet Count 231 k/uL (150-450); RBC 3.58 m/uL (3.80-5.40); RDW 13.4 % (11.5-15.5); WBC 12.6 k/uL (3.8-10.6)
[2022-12-17 20:35] LABS: ALT 70 U/L (4-34); AST 66 U/L (14-36); African American GFR (CKD) 72 (>60 ml/min/1.73 sqM); Albumin 2.6 g/dL (3.5-5.0); Alkaline Phosphatase 142 U/L (38-126); Anion Gap 5 mmol/L; Blood Urea Nitrogen 28 mg/dL (7-17); Calcium 8.5 mg/dL (8.4-10.2); Carbon Dioxide 20 mmol/L (22-30); Chloride 103 mmol/L (98-107); Glucose 212 mg/dL (74-99); Magnesium 1.6 mg/dL (1.6-2.3); Non-African American GFR(CKD) 62 (>60 ml/min/1.73 sqM); Potassium 5.5 mmol/L (3.5-5.1); Sodium 128 mmol/L (137-145); Total Bilirubin 0.4 mg/dL (0.2-1.3); Total Protein 5.5 g/dL (6.3-8.2)
[2022-12-17] MEDS ORDERED: NALOXONE 0.4 MG/ML 1 ML VIAL IV PRN (21:25)
[2022-12-17] MEDS ORDERED: ONDANSETRON 4 MG/2 ML VIAL IVP PRN (21:25)
[2022-12-17] MEDS: SODIUM CHLORIDE 0.9% 1,000 ML IV SCH (21:56)
[2022-12-17] MEDS ORDERED: DIPHENOX-ATROP 2.5-0.025 MG 1 EACH TAB PO PRN (22:16)
[2022-12-17] MEDS ORDERED: LORazepam 0.5 MG TAB PO PRN (22:16)
[2022-12-17] MEDS ORDERED: PANTOPRAZOLE 40 MG TABLET PO SCH (22:30)
[2022-12-17] MEDS: PANTOPRAZOLE 40 MG TABLET PO SCH (23:03)
[2022-12-17] MEDS: CYCLOBENZAPRINE 10 MG TAB PO SCH (23:03)
[2022-12-17] MEDS: ATORVASTATIN 10 MG TAB PO SCH (23:03)
[2022-12-17] MEDS: METOPROLOL TARTRATE 12.5 MG TAB PO SCH (23:03)
[2022-12-17] MEDS: lisinopriL 5 MG TAB PO SCH (23:03)
[2022-12-17] MEDS: Insulin Aspart (For Pump) 100 UNIT/ML VIAL SQ-PUMP SCH (23:13)
[2022-12-17 23:54] LABS: Creatine Kinase 134 U/L (30-135)
[2022-12-18 01:33] LABS: African American GFR (CKD) 60 (>60 ml/min/1.73 sqM); Anion Gap 3 mmol/L; Blood Urea Nitrogen 30 mg/dL (7-17); Calcium 7.6 mg/dL (8.4-10.2); Carbon Dioxide 19 mmol/L (22-30); Chloride 108 mmol/L (98-107); Glucose 159 mg/dL (74-99); Non-African American GFR(CKD) 52 (>60 ml/min/1.73 sqM); Potassium 5.3 mmol/L (3.5-5.1); Sodium 130 mmol/L (137-145)
[2022-12-18 05:11] LABS: Glucose,Whole Blood 149 mg/dL (70-110)
[2022-12-18] MEDS: CHOLECALCIFEROL 125 MCG (5000 IU) TABLET PO SCH (08:09)
[2022-12-18] MEDS: ASCORBIC ACID 500 MG TAB PO SCH (08:09)
[2022-12-18] MEDS: ZINC SULFATE 220 MG CAP PO SCH (08:09)
[2022-12-18] MEDS: PROPRANOLOL 10 MG TAB PO SCH (08:09)
[2022-12-18] MEDS: lisinopriL 5 MG TAB PO SCH (08:10)
[2022-12-18] MEDS: PANTOPRAZOLE 40 MG TABLET PO SCH (08:10)
[2022-12-18] MEDS: METOPROLOL TARTRATE 12.5 MG TAB PO SCH (08:10)
[2022-12-18] MEDS: SODIUM CHLORIDE 0.9% 1,000 ML IV SCH (08:10)
[2022-12-18 08:27] LABS: Glucose,Whole Blood 136 mg/dL (70-110)
[2022-12-18] MEDS ORDERED: ENOXAPARIN 40 MG/0.4 ML SYRINGE SQ SCH (09:00)
[2022-12-18 10:43] LABS: Bacteria,Urine Moderate /hpf; Hyaline Casts,Urine 28 /lpf (0-2); Mucus,Urine Occasional /hpf; RBC,Urine 21 /hpf (0-5); Squamous Epithelial Cell,Urine 4 /hpf (0-4); WBC,Urine 12 /hpf (0-5)
[2022-12-18 10:46] LABS: Basophils % (A) 0 %; Eosinophils # (A) 0.1 k/uL (0-0.7); Eosinophils % (A) 1 %; HCT 29.5 % (34.0-46.0); HGB 9.5 gm/dL (11.4-16.0); Lymphocytes # (A) 1.4 k/uL (1.0-4.8); Lymphocytes % (A) 19 %; MCH 29.2 pg (25.0-35.0); MCV 91.2 fL (80.0-100.0); Monocytes # (A) 0.6 k/uL (0-1.0); Monocytes % (A) 8 %; Neutrophils # (A) 5.2 k/uL (1.3-7.7); Neutrophils % (A) 70 %; Platelet Count 207 k/uL (150-450); RBC 3.24 m/uL (3.80-5.40); RDW 13.6 % (11.5-15.5); WBC 7.5 k/uL (3.8-10.6)
[2022-12-18 10:49] LABS: Appearance,Urine Cloudy (Clear); Bilirubin,Urine Negative (Negative); Blood,Urine Small (Negative); Color,Urine Yellow; Glucose,Urine (UA) 3+ (Negative); Ketones,Urine Negative (Negative); Nitrite,Urine Negative (Negative); Protein,Urine 3+ (Negative); Specific Gravity,Urine 1.025 (1.001-1.035); Urobilinogen,Urine <2.0 mg/dL (<2.0)
[2022-12-18 10:50] LABS: Leukocyte Esterase,Urine Large (Negative)
[2022-12-18 10:58] LABS: African American GFR (CKD) 55 (>60 ml/min/1.73 sqM); Anion Gap 5 mmol/L; Blood Urea Nitrogen 30 mg/dL (7-17); Calcium 7.9 mg/dL (8.4-10.2); Carbon Dioxide 18 mmol/L (22-30); Chloride 108 mmol/L (98-107); Glucose 183 mg/dL (74-99); Non-African American GFR(CKD) 48 (>60 ml/min/1.73 sqM); Potassium 5.3 mmol/L (3.5-5.1); Sodium 131 mmol/L (137-145)
--- NOTE | 2022-12-18 12:25 | HP ---
HISTORY AND PHYSICAL CHIEF COMPLAINTS: Nausea and fever. HISTORY OF PRESENT ILLNESS: This is a 32-year-old woman with a past medical history of diabetes mellitus. She is not feeling well. The patient is acutely nauseous. The patient came to [facility]. The patient was found to have renal failure and was found to be COVID-19 positive, admitted for further evaluation and treatment. The patient is not a candidate for Paxlovid because of abnormal labs. No chest pain, no palpitation. PAST MEDICAL HISTORY: Reviewed, include diabetes mellitus type 2, aspirin, rest of the history and rest of the chart is also reviewed. HOME MEDICATIONS: Reviewed include Zestril, dose and rest of medications reviewed. ALLERGIES: Keflex. FAMILY HISTORY: History of thyroid disease. SOCIAL HISTORY: Occasional alcohol. Previous history of smoking. REVIEW OF SYSTEMS: A 14-point review is negative except as mentioned earlier. PHYSICAL EXAMINATION: VITAL SIGNS: Pulse is 90, blood pressure is 135/89, respirations 20. HEENT: Conjunctivae normal. NECK: No jugular venous distention. CARDIOVASCULAR: S1, S2. RESPIRATIONS: Diminished at the bases. ABDOMEN: Soft, nontender. LEGS: No edema. NERVOUS SYSTEM: No focal deficits. LABORATORY DATA: Reviewed. ASSESSMENT: 1. Acute COVID-19 infection. 2. Severe dehydration with acute renal failure. 3. Hyperkalemia. 4. Hyponatremia. 5. Diabetes mellitus, type 1. 6. Asthma. 7. Gastroesophageal reflux disease. 8. Hypertension. 9. Multiple complex medical issues. RECOMMENDATIONS: This 32-year-old woman presented with multiple complex medical issues. At this time, I will continue the current medications. The patient is not a candidate for Paxlovid, ketones were negative. I would recommend vitamins, DVT prophylaxis, and I would also recommend consultation with Nephrology as well as Infectious Disease. Guarded prognosis because of multiple complex medical issues. Further recommendations to follow. See orders for details. MMODL / IJN: [id number] /
[2022-12-18 12:38] LABS: Glucose,Whole Blood 183 mg/dL (70-110)
--- NOTE | 2022-12-18 12:53 | P.NPCON ---
History of Present Illness - Reason for Consult acute renal failure - History of Present Illness Patient is a 32-year-old female with history of nephrotic syndrome. From biopsy-proven diabetic nephropathy. Patient is maintained on CARLOS EDUARDO inhibitor as an diuretics along with Aldactone. Baseline creatinine around 1.1 mg/dL with previous episodes of acute kidney injury. She is admitted to the hospital with complaints of increased weakness severe myalgias and decreased oral intake. He should also noticed increased lower extremity swelling over the past 2-3 days. Patient tested positive for COVID-19. Serum creatinine was 1.1 on admission and increased to 1.4 today. Blood pressure is not significantly low, although reading of 103 noted in the setting of use of CARLOS EDUARDO inhibitor's. Currently not on oxygen. Patient received IV fluids overnight. Review of Systems As per HPI Past Medical History Past Medical History: Asthma, Diabetes Mellitus, GERD/Reflux, Hypertension, Renal Disease Additional Past Medical History / Comment(s): hx. hiatal hernia, diabetic- TYPE 1 chronic kidney disease-protein in urine , albumin, MIGRAINE HEADACHES, CHILDHOOD ASTHMA, neuropathy in feet and legs, diabetic neuropathy History of Any Multi-Drug Resistant Organisms: MRSA Date of last positivie culture/infection: 2009 MDRO Source:: abdomen left side Past Surgical History: Section Additional Past Surgical History / Comment(s): surgery on cervix for abnormal cells, surgery groin area for grown hairs. bilateral cataract surgery with implants, Past Anesthesia/Blood Transfusion Reactions: Motion Sickness Additional Past Anesthesia/Blood Transfusion Reaction / Comment(s): Pt has clausterphobia. Past Psychological History: ADD/ADHD, Anxiety, Depression Smoking Status: Former smoker Past Alcohol Use History: Occasional Additional Past Alcohol Use History / Comment(s): Pt started smoking in 2007 and quit in 2019 Past Drug Use History: None Reported Additional Drug Use History / Comment(s): edibles occasional- instructed to hold 24 hours prior to procedure. - Past Family History Mother Family Medical History: No Reported History, Thyroid Disorder Additional Family Medical History / Comment(s): gestational diabetes Father Family Medical History: No Reported History Additional Family Medical History / Comment(s): chrons disease Medications and Allergies Home Medications Medication Instructions Recorded Confirmed Type Insulin Aspart (For Pump) [NovoLOG 0.01 unit SQ-PUMP CONTINUOUS 11/08/17 12/17/22 History (For Pump)] Metoprolol Tartrate [Lopressor] 12.5 mg PO BID 07/10/22 12/17/22 History Omeprazole 20 mg PO BID 07/10/22 12/17/22 History Atorvastatin [Lipitor] 10 mg PO HS 10/06/22 12/17/22 History Cholecalciferol (Vitamin D3) 1,250 mcg PO TU 10/06/22 12/17/22 History [Vitamin D3] Cyclobenzaprine [Flexeril] 10 mg PO HS 10/06/22 12/17/22 History LORazepam [Ativan] 0.5 mg PO HS PRN 10/06/22 12/17/22 History Torsemide [Demadex] 30 mg PO BID #90 tablet 10/10/22 12/17/22 Rx lisinopriL [Zestril] 5 mg PO BID #30 tab 10/10/22 12/17/22 Rx Diphenoxylate HCl/Atropine 2 tab PO TID PRN 12/17/22 12/17/22 History [Lomotil 2.5-0.025 mg Tablet] Propranolol [Inderal] 10 mg PO DAILY 12/17/22 12/17/22 History SUMAtriptan succinate [Imitrex] 50 mg PO BID PRN 12/17/22 12/17/22 History Selenium Sulfide 1 applic TOPICAL DIRECTED PRN 12/17/22 12/17/22 History Allergies Allergy/AdvReac Type Severity Reaction Status Date / Time cephalexin [From Keflex] Allergy Swelling Verified 12/17/22 22:08 (tongue) midazolam [From Versed] AdvReac very Verified 12/17/22 22:08 anxious feeling Physical Exam Vitals: Vital Signs Temp Pulse Pulse Resp BP BP Pulse Ox 12/18/22 09:00 97.5 F L 90 20 134/89 98 12/18/22 07:36 78 20 121/68 94 L 12/18/22 05:00 81 16 121/88 96 12/18/22 02:00 80 16 103/67 97 12/17/22 23:59 93 16 115/74 97 12/17/22 22:00 107 H 12/17/22 21:04 107 H 12/17/22 20:00 113 H 12/17/22 19:13 98.5 F 125 H 20 12/17/22 18:41 98.5 F 137 H 18 139/81 99 Intake and Output 10/25/23 10/26/23 10/26/23 22:59 06:59 14:59 Other: Voiding Method Toilet Weight 88.451 kg 88.451 kg Patient is awake, comfortable, no acute distress Examination of the heart S1 and S2 Examination of the lungs bilateral breath sounds are heard Abdomen is soft nontender Examination of lower extremity shows trace edema bilaterally [employer] 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 Acute kidney injury most likely ATN with underlying Covid infection as well as relative hypotension in the setting of use of CARLOS EDUARDO inhibitor's. Status post IV fluids overnight. I will discontinue lisinopril and hold IV fluids as patient is complaining of increased lower extremity edema. 2. Chronic kidney disease stage I to 2 secondary to biopsy-proven diabetic nephropathy. Patient has nephrotic syndrome with previous protein creatinine ratio around 4. Maintained on CARLOS EDUARDO inhibitor's and Aldactone. 3. COVID-19 infection 4. Type 1 diabetes Plan: DC lisinopril Hold IV fluids for now. Restart IV fluids if renal function is worse or if urine output remains low. Repeat labs in a.m. Continue current dose of propranolol. Discontinue Lopressor. Avoid hypotension NK for the consultation. We will continue to follow the patient with you during her hospitalization.
[2022-12-18] MEDS: PANTOPRAZOLE 40 MG/10 ML VIAL IVP SCH ×2 (12:57→21:37)
[2022-12-18] MEDS: HEPARIN SODIUM,PORCINE 5,000 UNIT/ML 1 ML VIAL SQ SCH ×2 (12:57→21:39)
[2022-12-18] MEDS: HYDROcodone/APAP 5-325MG 1 EACH TAB PO PRN (17:20)
[2022-12-18 17:37] LABS: Glucose,Whole Blood 176 mg/dL (70-110)
[2022-12-18 21:10] LABS: Glucose,Whole Blood 264 mg/dL (70-110)
[2022-12-18] MEDS: INSPUCOR MISCELLANE PRN (21:15)
[2022-12-18] MEDS: CYCLOBENZAPRINE 10 MG TAB PO SCH (21:37)
[2022-12-18] MEDS: ATORVASTATIN 10 MG TAB PO SCH (21:37)
--- NOTE | 2022-12-18 21:55 | P.CONS ---
History of Present Illness - Reason for Consult Consult date: 12/18/22 - History of Present Illness Patient is a 32-year-old female with a past medical history of clinical asthma diabetes mellitus reflux hypertension presenting to the ER for evaluation of not feeling well, patient mention 2 weeks ago she did have symptoms of not feeling well did have some dry cough at that time she tested negative for COVID and has been treated with antibiotics patient mention she did have some improvement in her symptoms however about 3 days ago on Thursday she started having a fever feeling ill did have a cough which has been moderate intensity unable to bring up any sputum with associated shortness of breath with the symptoms the patient presented to hospital on arrival to the ER the patient was afebrile patient was not hypoxic on for supplemental oxygen patient did have elevated white count 12.6 however that has normalized as of this morning and no left shift BUN/creatinine has been mildly elevated as well as liver enzymes urine was mildly positive tested positive for COVID influenza RSV was negative patient did have a chest x-ray that was reported negative for acute cardiopulmonary process infectious disease was consulted for the positive COVID test, patient has not received any COVID vaccination and this is the first time she tested positive for COVID during this pandemic Past Medical History Past Medical History: Asthma, Diabetes Mellitus, GERD/Reflux, Hypertension, Renal Disease Additional Past Medical History / Comment(s): hx. hiatal hernia, diabetic- TYPE 1 chronic kidney disease-protein in urine , albumin, MIGRAINE HEADACHES, CHILDHOOD ASTHMA, neuropathy in feet and legs, diabetic neuropathy History of Any Multi-Drug Resistant Organisms: MRSA Year Discovered:: 2009 MDRO Source:: abdomen left side Past Surgical History: Section Additional Past Surgical History / Comment(s): surgery on cervix for abnormal cells, surgery groin area for grown hairs. bilateral cataract surgery with implants, Past Anesthesia/Blood Transfusion Reactions: Motion Sickness Additional Past Anesthesia/Blood Transfusion Reaction / Comm: Pt has clausterphobia. Past Psychological History: ADD/ADHD, Anxiety, Depression Smoking Status: Former smoker Past Alcohol Use History: Occasional Additional Past Alcohol Use History / Comment(s): Pt started smoking in 2007 and quit in 2019 Past Drug Use History: None Reported Additional Drug Use History / Comment(s): edibles occasional- instructed to hold 24 hours prior to procedure. - Past Family History Mother Family Medical History: No Reported History, Thyroid Disorder Additional Family Medical History / Comment(s): gestational diabetes Father Family Medical History: No Reported History Additional Family Medical History / Comment(s): chrons disease Medications and Allergies Home Medications Medication Instructions Recorded Confirmed Type Insulin Aspart (For Pump) [NovoLOG 0.01 unit SQ-PUMP CONTINUOUS 11/08/17 12/17/22 History (For Pump)] Metoprolol Tartrate [Lopressor] 12.5 mg PO BID 07/10/22 12/17/22 History Omeprazole 20 mg PO BID 07/10/22 12/17/22 History Atorvastatin [Lipitor] 10 mg PO HS 10/06/22 12/17/22 History Cholecalciferol (Vitamin D3) 1,250 mcg PO TU 10/06/22 12/17/22 History [Vitamin D3] Cyclobenzaprine [Flexeril] 10 mg PO HS 10/06/22 12/17/22 History LORazepam [Ativan] 0.5 mg PO HS PRN 10/06/22 12/17/22 History Torsemide [Demadex] 30 mg PO BID #90 tablet 10/10/22 12/17/22 Rx lisinopriL [Zestril] 5 mg PO BID #30 tab 10/10/22 12/17/22 Rx Diphenoxylate HCl/Atropine 2 tab PO TID PRN 12/17/22 12/17/22 History [Lomotil 2.5-0.025 mg Tablet] Propranolol [Inderal] 10 mg PO DAILY 12/17/22 12/17/22 History SUMAtriptan succinate [Imitrex] 50 mg PO BID PRN 12/17/22 12/17/22 History Selenium Sulfide 1 applic TOPICAL DIRECTED PRN 12/17/22 12/17/22 History Allergies Allergy/AdvReac Type Severity Reaction Status Date / Time cephalexin [From Keflex] Allergy Swelling Verified 12/17/22 22:08 (tongue) midazolam [From Versed] AdvReac very Verified 12/17/22 22:08 anxious feeling Physical Exam Vitals: Vital Signs Temp Pulse Pulse Resp BP BP Pulse Ox 12/18/22 09:00 97.5 F L 90 20 134/89 98 12/18/22 07:36 78 20 121/68 94 L 12/18/22 05:00 81 16 121/88 96 12/18/22 02:00 80 16 103/67 97 12/17/22 23:59 93 16 115/74 97 12/17/22 22:00 107 H 12/17/22 21:04 107 H 12/17/22 20:00 113 H 12/17/22 19:13 98.5 F 125 H 20 12/17/22 18:41 98.5 F 137 H 18 139/81 99 Intake and Output 12/17/22 12/18/22 12/18/22 22:59 06:59 14:59 Other: Voiding Method Toilet Weight 88.451 kg 88.451 kg Results CBC & Chem 7: 12/18/22 10:30 12/18/22 10:30 Labs: Abnormal Lab Results - Last 24 Hours (Table) 12/17/22 12/17/22 12/17/22 Range/Units 18:41 19:31 19:31 WBC 12.6 H (3.8-10.6) k/uL RBC 3.58 L (3.80-5.40) m/uL Hgb 10.6 L (11.4-16.0) gm/dL Hct 31.7 L (34.0-46.0) % Neutrophils # 10.8 H (1.3-7.7) k/uL Sodium 128 L (137-145) mmol/L Potassium 5.5 H (3.5-5.1) mmol/L Chloride (98-107) mmol/L Carbon Dioxide 20 L (22-30) mmol/L BUN 28 H (7-17) mg/dL Creatinine 1.15 H (0.52-1.04) mg/dL Glucose 212 H (74-99) mg/dL POC Glucose (mg/dL) 235 H (70-110) mg/dL Calcium (8.4-10.2) mg/dL AST 66 H (14-36) U/L ALT 70 H (4-34) U/L Alkaline Phosphatase 142 H (38-126) U/L Total Protein 5.5 L (6.3-8.2) g/dL Albumin 2.6 L (3.5-5.0) g/dL Urine Appearance (Clear) Urine RBC (0-5) /hpf Urine WBC (0-5) /hpf Urine Bacteria (None) /hpf Hyaline Casts (0-2) /lpf Urine Mucus (None) /hpf SARS-CoV-2 (PCR) (Not Detectd) 12/17/22 12/18/22 12/18/22 Range/Units 19:32 00:06 05:09 WBC (3.8-10.6) k/uL RBC (3.80-5.40) m/uL Hgb (11.4-16.0) gm/dL Hct (34.0-46.0) % Neutrophils # (1.3-7.7) k/uL Sodium 130 L (137-145) mmol/L Potassium 5.3 H (3.5-5.1) mmol/L Chloride 108 H (98-107) mmol/L Carbon Dioxide 19 L (22-30) mmol/L BUN 30 H (7-17) mg/dL Creatinine 1.34 H (0.52-1.04) mg/dL Glucose 159 H (74-99) mg/dL POC Glucose (mg/dL) 149 H (70-110) mg/dL Calcium 7.6 L (8.4-10.2) mg/dL AST (14-36) U/L ALT (4-34) U/L Alkaline Phosphatase (38-126) U/L Total Protein (6.3-8.2) g/dL Albumin (3.5-5.0) g/dL Urine Appearance (Clear) Urine RBC (0-5) /hpf Urine WBC (0-5) /hpf Urine Bacteria (None) /hpf Hyaline Casts (0-2) /lpf Urine Mucus (None) /hpf SARS-CoV-2 (PCR) Detected A (Not Detectd) 12/18/22 12/18/22 12/18/22 Range/Units 08:16 10:00 10:30 WBC (3.8-10.6) k/uL RBC 3.24 L (3.80-5.40) m/uL Hgb 9.5 L (11.4-16.0) gm/dL Hct 29.5 L (34.0-46.0) % Neutrophils # (1.3-7.7) k/uL Sodium (137-145) mmol/L Potassium (3.5-5.1) mmol/L Chloride (98-107) mmol/L Carbon Dioxide (22-30) mmol/L BUN (7-17) mg/dL Creatinine (0.52-1.04) mg/dL Glucose (74-99) mg/dL POC Glucose (mg/dL) 136 H (70-110) mg/dL Calcium (8.4-10.2) mg/dL AST (14-36) U/L ALT (4-34) U/L Alkaline Phosphatase (38-126) U/L Total Protein (6.3-8.2) g/dL Albumin (3.5-5.0) g/dL Urine Appearance Cloudy H (Clear) Urine RBC 21 H (0-5) /hpf Urine WBC 12 H (0-5) /hpf Urine Bacteria Moderate H (None) /hpf Hyaline Casts 28 H (0-2) /lpf Urine Mucus Occasional H (None) /hpf SARS-CoV-2 (PCR) (Not Detectd) 12/18/22 Range/Units 10:30 WBC (3.8-10.6) k/uL RBC (3.80-5.40) m/uL Hgb (11.4-16.0) gm/dL Hct (34.0-46.0) % Neutrophils # (1.3-7.7) k/uL Sodium 131 L (137-145) mmol/L Potassium 5.3 H (3.5-5.1) mmol/L Chloride 108 H (98-107) mmol/L Carbon Dioxide 18 L (22-30) mmol/L BUN 30 H (7-17) mg/dL Creatinine 1.43 H (0.52-1.04) mg/dL Glucose 183 H (74-99) mg/dL POC Glucose (mg/dL) (70-110) mg/dL Calcium 7.9 L (8.4-10.2) mg/dL AST (14-36) U/L ALT (4-34) U/L Alkaline Phosphatase (38-126) U/L Total Protein (6.3-8.2) g/dL Albumin (3.5-5.0) g/dL Urine Appearance (Clear) Urine RBC (0-5) /hpf Urine WBC (0-5) /hpf Urine Bacteria (None) /hpf Hyaline Casts (0-2) /lpf Urine Mucus (None) /hpf SARS-CoV-2 (PCR) (Not Detectd) Assessment and Plan Plan: 1patient presented hospital with weakness no energy she also have a cough moderate intensity and associated shortness of breath however the patient did not have any fever no hypoxemia chest x-ray was negative for acute infiltrate treatment for underlying COVID will be mostly supportive and no clinic suspicious for secondary bacterial pneumonia 2-positive UA but no urinary symptoms more likely asymptomatic bacteriuria 3-we will check inflammatory markers 4-patient to continue with heparin zinc ascorbic acid no need for steroids or remdesivir We will follow on clinical condition and cultures to further adjust medication if needed Thank you for this consultation we will follow the patient along with you Dictation was produced using [employer] dictation software. please excuse any grammatical, word or spelling errors. Time with Patient: Greater than 30
[2022-12-18] MEDS: Insulin Aspart (For Pump) 100 UNIT/ML VIAL SQ-PUMP SCH (22:52)
[2022-12-19 02:02] LABS: Glucose,Whole Blood 173 mg/dL (70-110)
[2022-12-19 06:45] LABS: African American GFR (CKD) 63 (>60 ml/min/1.73 sqM); Anion Gap 4 mmol/L; Blood Urea Nitrogen 28 mg/dL (7-17); C Reactive Protein 4.5 mg/dL (<1.0); Carbon Dioxide 18 mmol/L (22-30); Chloride 108 mmol/L (98-107); Glucose 185 mg/dL (74-99); Non-African American GFR(CKD) 54 (>60 ml/min/1.73 sqM); Potassium 4.7 mmol/L (3.5-5.1); Sodium 130 mmol/L (137-145)
[2022-12-19 07:13] LABS: Glucose,Whole Blood 197 mg/dL (70-110)
[2022-12-19 07:15] LABS: HCG,Qualitative Serum Not Detected
[2022-12-19] MEDS: INSPUCOR MISCELLANE PRN (08:00)
[2022-12-19 09:01] LABS: Basophils # (A) 0.04 X 10*3/uL (0.00-0.10); Basophils % (A) 0.6 %; Eosinophils # (A) 0.03 X 10*3/uL (0.04-0.35); Eosinophils % (A) 0.5 %; HCT 29.3 % (37.2-46.3); HGB 9.5 d/dL (12.0-15.0); Lymphocytes % (A) 36.6 %; MCH 28.7 pg (27.0-32.0); MCHC 32.4 d/dL (32.0-37.0); MCV 88.5 FL (80.0-97.0); Mean Platelet Volume 10.8 FL (9.5-12.2); Monocytes % (A) 14.3 %; NRBC Per 100 WBC 0 X 10*3/uL (0.00-0.01); Neutrophils # (A) 2.93 X 10*3/uL (1.80-7.70); Neutrophils % (A) 46.7 %; Platelet Count 204 X 10*3/uL (140-440); RBC 3.31 X 10*6/uL (4.10-5.20); RDW 13.2 % (11.5-14.5); WBC 6.28 X 10*3/uL (4.50-10.00)
[2022-12-19] MEDS ORDERED: FUROSEMIDE 10 MG/ML 4 ML VIAL IV STA (09:44)
--- NOTE | 2022-12-19 09:46 | P.PN ---
Subjective Patient is seen in follow-up for acute kidney injury on chronic kidney disease. Renal function slightly better. Oral intake is good. No vomiting or diarrhea. Has been voiding. Denies chest pain or shortness of breath. On room air. Vital signs are stable. General: No acute distress. HEENT: Head exam is unremarkable. LUNGS: No audible rhonchi or wheezes. HEART: Rate and Rhythm are regular. ABDOMEN: Nontender. EXTREMITITES: Trace edema. Objective - Vital Signs Vital signs: Vital Signs Temp 98.5 F 12/19/22 08:16 Pulse 96 12/19/22 08:16 Resp 19 12/19/22 08:16 BP 163/83 12/19/22 08:16 Pulse Ox 96 12/19/22 08:16 FiO2 Intake & Output 12/18/22 12/19/22 12/19/22 18:59 06:59 18:59 Output Total 500 Balance -500 Output: Urine 500 Other: Voiding Method Toilet Toilet # Voids 1 1 - Labs CBC & Chem 7: 12/19/22 06:12 12/19/22 06:12 Labs: Abnormal Lab Results - Last 24 Hours (Table) 12/18/22 12/18/22 12/18/22 Range/Units 10:00 10:30 10:30 RBC 3.24 L (3.80-5.40) m/uL Hgb 9.5 L (11.4-16.0) gm/dL Hct 29.5 L (34.0-46.0) % Eosinophils # (0.04-0.35) X 10*3/uL D-Dimer (<0.60) mg/L FEU Sodium 131 L (137-145) mmol/L Potassium 5.3 H (3.5-5.1) mmol/L Chloride 108 H (98-107) mmol/L Carbon Dioxide 18 L (22-30) mmol/L BUN 30 H (7-17) mg/dL Creatinine 1.43 H (0.52-1.04) mg/dL Glucose 183 H (74-99) mg/dL POC Glucose (mg/dL) (70-110) mg/dL Hemoglobin A1c (<=6.0) % Calcium 7.9 L (8.4-10.2) mg/dL C-Reactive Protein (<1.0) mg/dL Procalcitonin (0.02-0.09) ng/mL Urine Appearance Cloudy H (Clear) Urine RBC 21 H (0-5) /hpf Urine WBC 12 H (0-5) /hpf Urine Bacteria Moderate H (None) /hpf Hyaline Casts 28 H (0-2) /lpf Urine Mucus Occasional H (None) /hpf 12/18/22 12/18/22 12/18/22 Range/Units 12:34 17:28 17:57 RBC (3.80-5.40) m/uL Hgb (11.4-16.0) gm/dL Hct (34.0-46.0) % Eosinophils # (0.04-0.35) X 10*3/uL D-Dimer 0.71 H (<0.60) mg/L FEU Sodium (137-145) mmol/L Potassium (3.5-5.1) mmol/L Chloride (98-107) mmol/L Carbon Dioxide (22-30) mmol/L BUN (7-17) mg/dL Creatinine (0.52-1.04) mg/dL Glucose (74-99) mg/dL POC Glucose (mg/dL) 183 H 176 H (70-110) mg/dL Hemoglobin A1c (<=6.0) % Calcium (8.4-10.2) mg/dL C-Reactive Protein (<1.0) mg/dL Procalcitonin (0.02-0.09) ng/mL Urine Appearance (Clear) Urine RBC (0-5) /hpf Urine WBC (0-5) /hpf Urine Bacteria (None) /hpf Hyaline Casts (0-2) /lpf Urine Mucus (None) /hpf 12/18/22 12/19/22 12/19/22 Range/Units 21:08 02:01 06:12 RBC (3.80-5.40) m/uL Hgb (11.4-16.0) gm/dL Hct (34.0-46.0) % Eosinophils # (0.04-0.35) X 10*3/uL D-Dimer (<0.60) mg/L FEU Sodium (137-145) mmol/L Potassium (3.5-5.1) mmol/L Chloride (98-107) mmol/L Carbon Dioxide (22-30) mmol/L BUN (7-17) mg/dL Creatinine (0.52-1.04) mg/dL Glucose (74-99) mg/dL POC Glucose (mg/dL) 264 H 173 H (70-110) mg/dL Hemoglobin A1c (<=6.0) % Calcium (8.4-10.2) mg/dL C-Reactive Protein (<1.0) mg/dL Procalcitonin 0.12 H (0.02-0.09) ng/mL Urine Appearance (Clear) Urine RBC (0-5) /hpf Urine WBC (0-5) /hpf Urine Bacteria (None) /hpf Hyaline Casts (0-2) /lpf Urine Mucus (None) /hpf 12/19/22 12/19/22 12/19/22 Range/Units 06:12 06:12 06:12 RBC 3.31 L (3.80-5.40) m/uL Hgb 9.5 L (11.4-16.0) gm/dL Hct 29.3 L (34.0-46.0) % Eosinophils # 0.03 L (0.04-0.35) X 10*3/uL D-Dimer (<0.60) mg/L FEU Sodium 130 L (137-145) mmol/L Potassium (3.5-5.1) mmol/L Chloride 108 H (98-107) mmol/L Carbon Dioxide 18 L (22-30) mmol/L BUN 28 H (7-17) mg/dL Creatinine 1.29 H (0.52-1.04) mg/dL Glucose 185 H (74-99) mg/dL POC Glucose (mg/dL) (70-110) mg/dL Hemoglobin A1c 12.8 H (<=6.0) % Calcium 8.0 L (8.4-10.2) mg/dL C-Reactive Protein 4.5 H (<1.0) mg/dL Procalcitonin (0.02-0.09) ng/mL Urine Appearance (Clear) Urine RBC (0-5) /hpf Urine WBC (0-5) /hpf Urine Bacteria (None) /hpf Hyaline Casts (0-2) /lpf Urine Mucus (None) /hpf 12/19/22 Range/Units 07:12 RBC (3.80-5.40) m/uL Hgb (11.4-16.0) gm/dL Hct (34.0-46.0) % Eosinophils # (0.04-0.35) X 10*3/uL D-Dimer (<0.60) mg/L FEU Sodium (137-145) mmol/L Potassium (3.5-5.1) mmol/L Chloride (98-107) mmol/L Carbon Dioxide (22-30) mmol/L BUN (7-17) mg/dL Creatinine (0.52-1.04) mg/dL Glucose (74-99) mg/dL POC Glucose (mg/dL) 197 H (70-110) mg/dL Hemoglobin A1c (<=6.0) % Calcium (8.4-10.2) mg/dL C-Reactive Protein (<1.0) mg/dL Procalcitonin (0.02-0.09) ng/mL Urine Appearance (Clear) Urine RBC (0-5) /hpf Urine WBC (0-5) /hpf Urine Bacteria (None) /hpf Hyaline Casts (0-2) /lpf Urine Mucus (None) /hpf Assessment and Plan Plan: Assessment: 1. Acute kidney injury secondary to ATN secondary to cold infection and hypotension. Creatinine peaked at 1.43 this admission and is 1.29 today. 2. Hyponatremia secondary to acute kidney injury. Slightly hypervolemic. 3. Chronic kidney disease stage 1/2 second or 2 biopsy-proven diabetic kidney disease. 4. Type 1 diabetes. 5. Acute COVID-19 infection. 6. Volume overload. 7. Metabolic acidosis secondary to acute kidney injury and IV fluids. 8. Anemia. Rule out iron deficiency. Plan: Lasix 40 mg IV once today. Add oral bicarb. 1500 mL fluid restriction. Check iron studies. Resume lisinopril as blood pressure is elevated. Blood sugar control. Repeat labs in the morning.
[2022-12-19] MEDS: HEPARIN SODIUM,PORCINE 5,000 UNIT/ML 1 ML VIAL SQ SCH ×2 (10:12→20:25)
[2022-12-19] MEDS: PANTOPRAZOLE 40 MG/10 ML VIAL IVP SCH ×2 (10:12→20:25)
[2022-12-19] MEDS: lisinopriL 5 MG TAB PO SCH ×2 (10:13→20:25)
[2022-12-19] MEDS: CHOLECALCIFEROL 125 MCG (5000 IU) TABLET PO SCH (10:13)
[2022-12-19] MEDS: ZINC SULFATE 220 MG CAP PO SCH (10:13)
[2022-12-19] MEDS: PROPRANOLOL 10 MG TAB PO SCH (10:13)
[2022-12-19] MEDS: ASCORBIC ACID 500 MG TAB PO SCH (10:14)
[2022-12-19] MEDS: SODIUM BICARBONATE TAB 650 MG TAB PO SCH ×2 (10:20→20:25)
[2022-12-19] MEDS: HYDROcodone/APAP 5-325MG 1 EACH TAB PO PRN (10:29)
[2022-12-19 12:15] LABS: Glucose,Whole Blood 211 mg/dL (70-110)
[2022-12-19 13:18] VITALS: BMI 29.6
[2022-12-19] MEDS ORDERED: BENZONATATE 100 MG CAP PO PRN (15:33)
--- NOTE | 2022-12-19 15:33 | P.PN ---
Subjective Progress Note Date: 12/19/22 Principal diagnosis: covid 19 Patient is a 32-year-old female with a past medical history of clinical asthma diabetes mellitus reflux hypertension presenting to the ER for evaluation of not feeling well, patient did test positive for Covid 19, however chest x-ray was negative for acute pneumonia. On today's evaluation that is12/19/2022, the patient denies any fever or any chills, the patient still complaining of dry irritating cough with associated shortness of breath, patient denies any nausea/vomiting or diarrhea and no abdominal pain. Patient did have a normal white count 6.28, creatinine is 1.29 CRP is 4.5 and pro-calcitonin is 0.12 Objective - Vital Signs Vital signs: Vital Signs Temp 98.5 F 12/19/22 08:16 Pulse 96 12/19/22 08:16 Resp 19 12/19/22 08:16 BP 163/83 12/19/22 08:16 Pulse Ox 96 12/19/22 08:16 FiO2 Intake & Output 12/18/22 12/19/22 12/19/22 18:59 06:59 18:59 Output Total 500 Balance -500 Output: Urine 500 Other: Voiding Method Toilet Toilet # Voids 1 1 - Exam GENERAL DESCRIPTION: Middle-age female up in the chair in no distress RESPIRATORY SYSTEM: Unlabored breathing , decreased intensity of breath sounds, no wheeze HEART: S1 S2 regular rate and rhythm , ABDOMEN: Soft , no tenderness EXTREMITIES: No edema feet - Labs CBC & Chem 7: 12/19/22 06:12 12/19/22 06:12 Labs: Abnormal Lab Results - Last 24 Hours (Table) 12/18/22 12/18/22 12/18/22 Range/Units 10:00 10:30 10:30 RBC 3.24 L (3.80-5.40) m/uL Hgb 9.5 L (11.4-16.0) gm/dL Hct 29.5 L (34.0-46.0) % Eosinophils # (0.04-0.35) X 10*3/uL D-Dimer (<0.60) mg/L FEU Sodium 131 L (137-145) mmol/L Potassium 5.3 H (3.5-5.1) mmol/L Chloride 108 H (98-107) mmol/L Carbon Dioxide 18 L (22-30) mmol/L BUN 30 H (7-17) mg/dL Creatinine 1.43 H (0.52-1.04) mg/dL Glucose 183 H (74-99) mg/dL POC Glucose (mg/dL) (70-110) mg/dL Hemoglobin A1c (<=6.0) % Calcium 7.9 L (8.4-10.2) mg/dL C-Reactive Protein (<1.0) mg/dL Procalcitonin (0.02-0.09) ng/mL Urine Appearance Cloudy H (Clear) Urine RBC 21 H (0-5) /hpf Urine WBC 12 H (0-5) /hpf Urine Bacteria Moderate H (None) /hpf Hyaline Casts 28 H (0-2) /lpf Urine Mucus Occasional H (None) /hpf 12/18/22 12/18/22 12/18/22 Range/Units 12:34 17:28 17:57 RBC (3.80-5.40) m/uL Hgb (11.4-16.0) gm/dL Hct (34.0-46.0) % Eosinophils # (0.04-0.35) X 10*3/uL D-Dimer 0.71 H (<0.60) mg/L FEU Sodium (137-145) mmol/L Potassium (3.5-5.1) mmol/L Chloride (98-107) mmol/L Carbon Dioxide (22-30) mmol/L BUN (7-17) mg/dL Creatinine (0.52-1.04) mg/dL Glucose (74-99) mg/dL POC Glucose (mg/dL) 183 H 176 H (70-110) mg/dL Hemoglobin A1c (<=6.0) % Calcium (8.4-10.2) mg/dL C-Reactive Protein (<1.0) mg/dL Procalcitonin (0.02-0.09) ng/mL Urine Appearance (Clear) Urine RBC (0-5) /hpf Urine WBC (0-5) /hpf Urine Bacteria (None) /hpf Hyaline Casts (0-2) /lpf Urine Mucus (None) /hpf 12/18/22 12/19/22 12/19/22 Range/Units 21:08 02:01 06:12 RBC (3.80-5.40) m/uL Hgb (11.4-16.0) gm/dL Hct (34.0-46.0) % Eosinophils # (0.04-0.35) X 10*3/uL D-Dimer (<0.60) mg/L FEU Sodium (137-145) mmol/L Potassium (3.5-5.1) mmol/L Chloride (98-107) mmol/L Carbon Dioxide (22-30) mmol/L BUN (7-17) mg/dL Creatinine (0.52-1.04) mg/dL Glucose (74-99) mg/dL POC Glucose (mg/dL) 264 H 173 H (70-110) mg/dL Hemoglobin A1c (<=6.0) % Calcium (8.4-10.2) mg/dL C-Reactive Protein (<1.0) mg/dL Procalcitonin 0.12 H (0.02-0.09) ng/mL Urine Appearance (Clear) Urine RBC (0-5) /hpf Urine WBC (0-5) /hpf Urine Bacteria (None) /hpf Hyaline Casts (0-2) /lpf Urine Mucus (None) /hpf 12/19/22 12/19/22 12/19/22 Range/Units 06:12 06:12 06:12 RBC 3.31 L (3.80-5.40) m/uL Hgb 9.5 L (11.4-16.0) gm/dL Hct 29.3 L (34.0-46.0) % Eosinophils # 0.03 L (0.04-0.35) X 10*3/uL D-Dimer (<0.60) mg/L FEU Sodium 130 L (137-145) mmol/L Potassium (3.5-5.1) mmol/L Chloride 108 H (98-107) mmol/L Carbon Dioxide 18 L (22-30) mmol/L BUN 28 H (7-17) mg/dL Creatinine 1.29 H (0.52-1.04) mg/dL Glucose 185 H (74-99) mg/dL POC Glucose (mg/dL) (70-110) mg/dL Hemoglobin A1c 12.8 H (<=6.0) % Calcium 8.0 L (8.4-10.2) mg/dL C-Reactive Protein 4.5 H (<1.0) mg/dL Procalcitonin (0.02-0.09) ng/mL Urine Appearance (Clear) Urine RBC (0-5) /hpf Urine WBC (0-5) /hpf Urine Bacteria (None) /hpf Hyaline Casts (0-2) /lpf Urine Mucus (None) /hpf 12/19/22 Range/Units 07:12 RBC (3.80-5.40) m/uL Hgb (11.4-16.0) gm/dL Hct (34.0-46.0) % Eosinophils # (0.04-0.35) X 10*3/uL D-Dimer (<0.60) mg/L FEU Sodium (137-145) mmol/L Potassium (3.5-5.1) mmol/L Chloride (98-107) mmol/L Carbon Dioxide (22-30) mmol/L BUN (7-17) mg/dL Creatinine (0.52-1.04) mg/dL Glucose (74-99) mg/dL POC Glucose (mg/dL) 197 H (70-110) mg/dL Hemoglobin A1c (<=6.0) % Calcium (8.4-10.2) mg/dL C-Reactive Protein (<1.0) mg/dL Procalcitonin (0.02-0.09) ng/mL Urine Appearance (Clear) Urine RBC (0-5) /hpf Urine WBC (0-5) /hpf Urine Bacteria (None) /hpf Hyaline Casts (0-2) /lpf Urine Mucus (None) /hpf Assessment and Plan (1) COVID-19 Current Visit: Yes Status: Acute Code(s): U07.1 - COVID-19 SNOMED Code(s): 680282391 Plan: 1patient presented hospital with weakness no energy she also have a cough moderate intensity and associated shortness of breath however the patient did not have any fever no hypoxemia chest x-ray was negative for acute infiltrate tr eatment for underlying COVID will be mostly supportive and no clinic suspicious for secondary bacterial pneumonia 2-positive UA but no urinary symptoms more likely asymptomatic bacteriuria 3- inflammatory markers are mildly elevated 4-patient to continue with current supportive treatment of heparin zinc ascorbic acid we will add Tessalon Perles for symptomatic treatment of cough Dictation was produced using [employer] dictation software. please excuse any grammatical, word or spelling errors. Time with Patient: Less than 30
[2022-12-19 17:19] LABS: Glucose,Whole Blood 150 mg/dL (70-110)
[2022-12-19 17:33] LABS: % Iron Saturation 13.73 (12.00-45.00)
[2022-12-19] MEDS: CYCLOBENZAPRINE 10 MG TAB PO SCH (20:25)
[2022-12-19] MEDS: ATORVASTATIN 10 MG TAB PO SCH (20:25)
[2022-12-19 20:32] LABS: Glucose,Whole Blood 156 mg/dL (70-110)
--- NOTE | 2022-12-19 20:49 | P.PN ---
Subjective Is a 32 years old female who presents initially on 12/17 with nausea vomiting. She is a known case of type 1 diabetes mellitus and she is currently on insulin pump and she presents with nausea vomiting and gastroenteritis-like symptoms thought secondary to acute covid infection , patient denies dyspnea or chest pain but she has significant hacking cough and Robitussin DM was admitted for her. Labs reviewed, WBC is 6.2, hemoglobin is stable 9.5 and she has evidence of anemia of chronic disease. Sodium 1:30 and creatinine coming down to 1.4 down to 1.29. Liver enzymes mildly elevated with AST 66 and ALT 70 most likely secondary to her viral infection. Chest x-rays negative for acute process. Hemoglobin A1c 12.8. Pro-calcitonin is only mildly elevated 0.12 which is not concerning for bacterial infection Objective - Vital Signs Vital signs: Vital Signs Temp 98.5 F 12/19/22 08:16 Pulse 96 12/19/22 08:16 Resp 19 12/19/22 08:16 BP 163/83 12/19/22 08:16 Pulse Ox 96 12/19/22 08:16 FiO2 Intake & Output 12/18/22 12/19/22 12/19/22 18:59 06:59 18:59 Intake Total 500 Output Total 500 Balance -500 500 Weight 88.451 kg Intake: Oral 500 Output: Urine 500 Other: Voiding Method Toilet Toilet Toilet # Voids 1 1 - Exam GENERAL: The patient is alert and oriented x3, not in any acute distress. Well developed, well nourished. HEENT: Pupils are round and equally reacting to light. EOMI. No scleral icterus. No conjunctival pallor. Normocephalic, atraumatic. No pharyngeal erythema. No thyromegaly. CARDIOVASCULAR: S1 and S2 present. No murmurs, rubs, or gallops. PULMONARY: Chest is clear to auscultation, no wheezing , no crackles. ABDOMEN: Soft, nontender, nondistended, normoactive bowel sounds. No palpable organomegaly. MUSCULOSKELETAL: No joint swelling or deformity. EXTREMITIES: No cyanosis, clubbing, or pedal edema. NEUROLOGICAL: Gross neurological examination did not reveal any focal deficits. SKIN: No rashes. no petechiae. - Labs CBC & Chem 7: 12/19/22 06:12 12/19/22 06:12 Labs: Abnormal Lab Results - Last 24 Hours (Table) 12/18/22 12/18/22 12/18/22 Range/Units 17:28 17:57 21:08 RBC (4.10-5.20) X 10*6/uL Hgb (12.0-15.0) d/dL Hct (37.2-46.3) % Eosinophils # (0.04-0.35) X 10*3/uL D-Dimer 0.71 H (<0.60) mg/L FEU Sodium (137-145) mmol/L Chloride (98-107) mmol/L Carbon Dioxide (22-30) mmol/L BUN (7-17) mg/dL Creatinine (0.52-1.04) mg/dL Glucose (74-99) mg/dL POC Glucose (mg/dL) 176 H 264 H (70-110) mg/dL Hemoglobin A1c (<=6.0) % Calcium (8.4-10.2) mg/dL C-Reactive Protein (<1.0) mg/dL Procalcitonin (0.02-0.09) ng/mL 12/19/22 12/19/22 12/19/22 Range/Units 02:01 06:12 06:12 RBC (4.10-5.20) X 10*6/uL Hgb (12.0-15.0) d/dL Hct (37.2-46.3) % Eosinophils # (0.04-0.35) X 10*3/uL D-Dimer (<0.60) mg/L FEU Sodium (137-145) mmol/L Chloride (98-107) mmol/L Carbon Dioxide (22-30) mmol/L BUN (7-17) mg/dL Creatinine (0.52-1.04) mg/dL Glucose (74-99) mg/dL POC Glucose (mg/dL) 173 H (70-110) mg/dL Hemoglobin A1c 12.8 H (<=6.0) % Calcium (8.4-10.2) mg/dL C-Reactive Protein (<1.0) mg/dL Procalcitonin 0.12 H (0.02-0.09) ng/mL 12/19/22 12/19/22 12/19/22 Range/Units 06:12 06:12 07:12 RBC 3.31 L (4.10-5.20) X 10*6/uL Hgb 9.5 L (12.0-15.0) d/dL Hct 29.3 L (37.2-46.3) % Eosinophils # 0.03 L (0.04-0.35) X 10*3/uL D-Dimer (<0.60) mg/L FEU Sodium 130 L (137-145) mmol/L Chloride 108 H (98-107) mmol/L Carbon Dioxide 18 L (22-30) mmol/L BUN 28 H (7-17) mg/dL Creatinine 1.29 H (0.52-1.04) mg/dL Glucose 185 H (74-99) mg/dL POC Glucose (mg/dL) 197 H (70-110) mg/dL Hemoglobin A1c (<=6.0) % Calcium 8.0 L (8.4-10.2) mg/dL C-Reactive Protein 4.5 H (<1.0) mg/dL Procalcitonin (0.02-0.09) ng/mL 12/19/22 Range/Units 12:13 RBC (4.10-5.20) X 10*6/uL Hgb (12.0-15.0) d/dL Hct (37.2-46.3) % Eosinophils # (0.04-0.35) X 10*3/uL D-Dimer (<0.60) mg/L FEU Sodium (137-145) mmol/L Chloride (98-107) mmol/L Carbon Dioxide (22-30) mmol/L BUN (7-17) mg/dL Creatinine (0.52-1.04) mg/dL Glucose (74-99) mg/dL POC Glucose (mg/dL) 211 H (70-110) mg/dL Hemoglobin A1c (<=6.0) % Calcium (8.4-10.2) mg/dL C-Reactive Protein (<1.0) mg/dL Procalcitonin (0.02-0.09) ng/mL Assessment and Plan Assessment: Acute covid Infection with acute tracheobronchitis. 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 Anemia of chronic disease Mild hypernatremia Plan: Continue with Protonix Continue with a breathing treatment At sodium bicarb Robitussin-DM Vitamin C D and zinc Nephrology and infectious disease team on the case. Labs and medication were reviewed.. Continue same treatment. Continue with symptomatic treatment. Resume home medication. Monitor labs and vitals. DVT and GI prophylaxis. Further recommendations as per clinical course of the patient DVT prophylaxis: Subcutaneous heparin GI Prophylaxis: Ppi Prognosis is guarded
[2022-12-19] MEDS: guaiFENesin-DM 100-10MG/5ML 10 ML CUP PO SCH (20:54)
[2022-12-19] MEDS: Insulin Aspart (For Pump) 100 UNIT/ML VIAL SQ-PUMP SCH (21:47)
[2022-12-20 00:32] VITALS: RESP 19
[2022-12-20 02:09] LABS: Glucose,Whole Blood 229 mg/dL (70-110)
[2022-12-20 06:12] LABS: Glucose,Whole Blood 246 mg/dL (70-110)
[2022-12-20] MEDS: guaiFENesin-DM 100-10MG/5ML 10 ML CUP PO SCH ×3 (06:12→13:06)
[2022-12-20] MEDS: INSPUCOR MISCELLANE PRN ×2 (08:00→17:52)
[2022-12-20] MEDS: SODIUM BICARBONATE TAB 650 MG TAB PO SCH (09:19)
[2022-12-20] MEDS: ZINC SULFATE 220 MG CAP PO SCH (09:20)
[2022-12-20] MEDS: PANTOPRAZOLE 40 MG/10 ML VIAL IVP SCH (09:20)
[2022-12-20] MEDS: PROPRANOLOL 10 MG TAB PO SCH (09:20)
[2022-12-20] MEDS: CHOLECALCIFEROL 125 MCG (5000 IU) TABLET PO SCH (09:20)
[2022-12-20] MEDS: ASCORBIC ACID 500 MG TAB PO SCH (09:20)
[2022-12-20] MEDS: lisinopriL 5 MG TAB PO SCH (09:20)
[2022-12-20] MEDS: HEPARIN SODIUM,PORCINE 5,000 UNIT/ML 1 ML VIAL SQ SCH (09:21)
[2022-12-20] MEDS: HYDROcodone/APAP 5-325MG 1 EACH TAB PO PRN (09:22)
[2022-12-20 09:37] LABS: BUN/Creat Ratio 22.85 Ratio (12.00-20.00); Blood Urea Nitrogen 29.7 mg/dL (9.0-27.0); Calcium 8.3 mg/dL (8.7-10.3); Carbon Dioxide 19.1 mmol/L (21.6-31.8); Chloride 108 mmol/L (96-109); Glucose 232 mg/dL (70-110); Potassium 5.2 mmol/L (3.5-5.5); Sodium 136 mmol/L (135-145)
[2022-12-20 12:20] LABS: Glucose,Whole Blood 181 mg/dL (70-110)
--- NOTE | 2022-12-20 14:20 | P.PN ---
Subjective Progress Note Date: 12/20/22 Principal diagnosis: covid 19 Patient is a 32-year-old female with a past medical history of clinical asthma diabetes mellitus reflux hypertension presenting to the ER for evaluation of not feeling well, patient did test positive for Covid 19, however chest x-ray was negative for acute pneumonia. On today's evaluation that is 12/20/2022, the patient remains to be afebrile, the patient is breathing comfortably on room air , the patient denies any chest pain, the patient cough is decreased in intensity and remains to be drying nature, patient denies Abdominal pain and no nausea/vomiting or diarrhea , patient is feeling better Patient did have a normal white count 6.28 as of yesterday, creatinine is 1.3, CRP is 4.5 and pro-calcitonin is 0.12 Objective - Vital Signs Vital signs: Vital Signs Temp 97.1 F L 12/20/22 08:03 Pulse 81 12/20/22 08:03 Resp 19 12/20/22 08:03 BP 132/70 12/20/22 08:03 Pulse Ox 94 L 12/20/22 08:03 FiO2 Intake & Output 12/19/22 12/20/22 12/20/22 18:59 06:59 18:59 Intake Total 1222 680 Balance 1222 680 Weight 88.451 kg Intake: Oral 1222 680 Other: Voiding Method Toilet Toilet Toilet # Voids 2 - Exam GENERAL DESCRIPTION: Middle-age female up in the chair in no distress RESPIRATORY SYSTEM: Unlabored breathing , decreased intensity of breath sounds, no wheeze HEART: S1 S2 regular rate and rhythm , ABDOMEN: Soft , no tenderness EXTREMITIES: No edema feet - Labs CBC & Chem 7: 12/19/22 06:12 12/20/22 05:27 Labs: Abnormal Lab Results - Last 24 Hours (Table) 12/19/22 12/19/22 12/19/22 Range/Units 06:12 12:13 17:17 Carbon Dioxide (21.6-31.8) mmol/L BUN (9.0-27.0) mg/dL Est GFR (CKD-EPI) (>=60) BUN/Creatinine Ratio (12.00-20.00) Ratio Glucose (70-110) mg/dL POC Glucose (mg/dL) 211 H 150 H (70-110) mg/dL Calcium (8.7-10.3) mg/dL Iron 28 L (50-170) UG/DL TIBC 204 L (228-460) UG/DL Transferrin 146.0 L (204.0-354.0) mg/dL 12/19/22 12/20/22 12/20/22 Range/Units 20:31 02:07 05:27 Carbon Dioxide 19.1 L (21.6-31.8) mmol/L BUN 29.7 H (9.0-27.0) mg/dL Est GFR (CKD-EPI) 55 L (>=60) BUN/Creatinine Ratio 22.85 H (12.00-20.00) Ratio Glucose 232 H (70-110) mg/dL POC Glucose (mg/dL) 156 H 229 H (70-110) mg/dL Calcium 8.3 L (8.7-10.3) mg/dL Iron (50-170) UG/DL TIBC (228-460) UG/DL Transferrin (204.0-354.0) mg/dL 12/20/22 Range/Units 06:11 Carbon Dioxide (21.6-31.8) mmol/L BUN (9.0-27.0) mg/dL Est GFR (CKD-EPI) (>=60) BUN/Creatinine Ratio (12.00-20.00) Ratio Glucose (70-110) mg/dL POC Glucose (mg/dL) 246 H (70-110) mg/dL Calcium (8.7-10.3) mg/dL Iron (50-170) UG/DL TIBC (228-460) UG/DL Transferrin (204.0-354.0) mg/dL Microbiology - Last 24 Hours (Table) 12/18/22 21:45 Urine Culture - Preliminary Urine,Voided Gram Neg Bacilli Assessment and Plan (1) COVID-19 Current Visit: Yes Status: Acute Code(s): U07.1 - COVID-19 SNOMED Code(s): 699665190 Plan: 1patient presented hospital with weakness no energy she also have a cough moderate intensity and associated shortness of breath however the patient did not have any fever no hypoxemia chest x-ray was negative for acute infiltrate treatment for underlying COVID will be mostly supportive and no clinic suspic ious for secondary bacterial pneumonia 2-positive UA but no urinary symptoms more likely asymptomatic bacteriuria 3- inflammatory markers are mildly elevated 4-patient seemed to have shown clinical improvement and will continue with current supportive treatment of heparin zinc ascorbic acid and Tessalon Perles for symptomatic treatment of cough Dictation was produced using [employer] dictation software. please excuse any grammatical, word or spelling errors. Time with Patient: Less than 30
[2022-12-20 15:42] VITALS: BP 139/83; PULSE 85; TEMP 96.8
--- NOTE | 2022-12-22 06:19 | P.PN ---
Subjective please consider this note as discharge summary Diagnoses: Acute covid Infection with acute tracheobronchitis. 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 Asymptomatic bacteriuria Anemia of chronic disease Mild hyponatremia, resolved hospital course: this is a 32 years old female who presents initially on 12/17 with nausea vomiting. She is a known case of type 1 diabetes mellitus and she is currently on insulin pump and she presents with nausea vomiting and gastroenteritis-like symptoms thought secondary to acute covid infection , patient denies dyspnea or chest pain but she has significant hacking cough and Robitussin DM was admitted for her. Labs reviewed, WBC is 6.2, hemoglobin is stable 9.5 and she has evidence of anemia of chronic disease. Sodium 1:30 and creatinine coming down to 1.4 down to 1.29. Liver enzymes mildly elevated with AST 66 and ALT 70 most likely secondary to her viral infection. Chest x-rays negative for acute process. Hemoglobin A1c 12.8 (pt informed and she will continue to follow up as outpt). Pro-calcitonin is only mildly elevated 0.12 which is not concerning for bacterial infection Patient has been evaluated by infectious disease team nephrology team. She was treated with vitamin C and zinc. She showed interval improvement in her symptoms significantly improved. Her nausea vomiting resolved and she tolerates diet well. improvement and creatinine remains stable. patient denies any other symptoms. patient denies dysuria urgency. no suprapubic pain or tenderness. no flank pain. patient was cleared for discharge by both infectious disease and nephrology team. Problems and management plan were discussed with the patient and he verbalized understanding and acceptance Patient was found stable and can be discharged home in guarded prognosis however he needs follow-up as an outpatient. Patient was instructed to follow up with PCP Dr. Curran within one week and patient agrees Physical exam Gen: patient is a AAOx3, no distress CVS: S1-S2, RRR, no murmur Lungs: B/L CTA, no wheezing Abdomen: soft, no distention, no tenderness, positive bowel sounds Extremity: no leg edema or induration Time spent more than 35 minutes Objective - Vital Signs Vital signs: Vital Signs Temp 97.1 F L 12/20/22 08:03 Pulse 81 12/20/22 08:03 Resp 19 12/20/22 08:03 BP 132/70 12/20/22 08:03 Pulse Ox 94 L 12/20/22 08:03 FiO2 Intake & Output 12/19/22 12/20/22 12/20/22 18:59 06:59 18:59 Intake Total 1222 680 Balance 1222 680 Weight 88.451 kg Intake: Oral 1222 680 Other: Voiding Method Toilet Toilet Toilet # Voids 2 - Exam GENERAL: The patient is alert and oriented x3, not in any acute distress. Well developed, well nourished. HEENT: Pupils are round and equally reacting to light. EOMI. No scleral icterus. No conjunctival pallor. Normocephalic, atraumatic. No pharyngeal erythema. No thyromegaly. CARDIOVASCULAR: S1 and S2 present. No murmurs, rubs, or gallops. PULMONARY: Chest is clear to auscultation, no wheezing , no crackles. ABDOMEN: Soft, nontender, nondistended, normoactive bowel sounds. No palpable organomegaly. MUSCULOSKELETAL: No joint swelling or deformity. EXTREMITIES: No cyanosis, clubbing, or pedal edema. NEUROLOGICAL: Gross neurological examination did not reveal any focal deficits. SKIN: No rashes. no petechiae. - Labs CBC & Chem 7: 12/19/22 06:12 12/20/22 05:27 Labs: Abnormal Lab Results - Last 24 Hours (Table) 12/19/22 12/19/22 12/19/22 Range/Units 06:12 17:17 20:31 Carbon Dioxide (21.6-31.8) mmol/L BUN (9.0-27.0) mg/dL Est GFR (CKD-EPI) (>=60) BUN/Creatinine Ratio (12.00-20.00) Ratio Glucose (70-110) mg/dL POC Glucose (mg/dL) 150 H 156 H (70-110) mg/dL Calcium (8.7-10.3) mg/dL Iron 28 L (50-170) UG/DL TIBC 204 L (228-460) UG/DL Transferrin 146.0 L (204.0-354.0) mg/dL 12/20/22 12/20/22 12/20/22 Range/Units 02:07 05:27 06:11 Carbon Dioxide 19.1 L (21.6-31.8) mmol/L BUN 29.7 H (9.0-27.0) mg/dL Est GFR (CKD-EPI) 55 L (>=60) BUN/Creatinine Ratio 22.85 H (12.00-20.00) Ratio Glucose 232 H (70-110) mg/dL POC Glucose (mg/dL) 229 H 246 H (70-110) mg/dL Calcium 8.3 L (8.7-10.3) mg/dL Iron (50-170) UG/DL TIBC (228-460) UG/DL Transferrin (204.0-354.0) mg/dL 12/20/22 Range/Units 12:17 Carbon Dioxide (21.6-31.8) mmol/L BUN (9.0-27.0) mg/dL Est GFR (CKD-EPI) (>=60) BUN/Creatinine Ratio (12.00-20.00) Ratio Glucose (70-110) mg/dL POC Glucose (mg/dL) 181 H (70-110) mg/dL Calcium (8.7-10.3) mg/dL Iron (50-170) UG/DL TIBC (228-460) UG/DL Transferrin (204.0-354.0) mg/dL Microbiology - Last 24 Hours (Table) 12/18/22 21:45 Urine Culture - Preliminary Urine,Voided Gram Neg Bacilli Assessment and Plan Assessment: Acute covid Infection with acute tracheobronchitis. 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 Anemia of chronic disease Mild hypernatremia Plan: Continue with Protonix Continue with a breathing treatment At sodium bicarb Robitussin-DM Vitamin C D and zinc Nephrology and infectious disease team on the case. Labs and medication were reviewed.. Continue same treatment. Continue with symptomatic treatment. Resume home medication. Monitor labs and vitals. DVT and GI prophylaxis. Further recommendations as per clinical course of the patient DVT prophylaxis: Subcutaneous heparin GI Prophylaxis: Ppi Prognosis is guarded
--- NOTE | 2022-12-22 06:19 | P.DS ---
Providers Date of admission: 12/18/22 13:07 Attending physician: Stacey Dunn Consults: 12/17/22 21:25 Consult Physician Urgent Consulting Provider: Shirley Damon Consult Reason/Comments: hyponatremia, hx nephrotic syndrome Do you want consulting provider notified?: Yes 12/18/22 11:40 Consult Physician Routine Consulting Provider: Bailey Hayes Consult Reason/Comments: covid Do you want consulting provider notified?: Yes Primary care physician: Mohit Curran Hospital Course: Please refer to the note from 12/20/2022 Patient Condition at Discharge: Stable Plan - Discharge Summary Discharge Rx Participant: No New Discharge Prescriptions: New Zinc Sulfate [Orazinc] 220 mg PO DAILY #30 cap Sodium Bicarbonate Tab 650 mg PO BID #60 tab Ascorbic Acid [Vitamin C] 500 mg PO DAILY #30 tab Continue Insulin Aspart (For Pump) [NovoLOG (For Pump)] 0.01 unit SQ-PUMP CONTINUOUS Atorvastatin [Lipitor] 10 mg PO HS LORazepam [Ativan] 0.5 mg PO HS PRN PRN Reason: Anxiety lisinopriL [Zestril] 5 mg PO BID #30 tab Diphenoxylate HCl/Atropine [Lomotil 2.5-0.025 mg Tablet] 2 tab PO TID PRN PRN Reason: Diarrhea Propranolol [Inderal] 10 mg PO DAILY Selenium Sulfide 1 applic TOPICAL DIRECTED PRN PRN Reason: dandruff SUMAtriptan succinate [Imitrex] 50 mg PO BID PRN PRN Reason: Migraine Headache Cholecalciferol (Vitamin D3) [Vitamin D3] 1,250 mcg PO TU #30 tab Omeprazole 20 mg PO BID Metoprolol Tartrate [Lopressor] 12.5 mg PO BID Cyclobenzaprine [Flexeril] 10 mg PO HS Discontinued Torsemide [Demadex] 30 mg PO BID #90 tablet Discharge Medication List Insulin Aspart (For Pump) [NovoLOG (For Pump)] 0.01 unit SQ-PUMP CONTINUOUS 11/08/17 [History] Metoprolol Tartrate [Lopressor] 12.5 mg PO BID 07/10/22 [History] Omeprazole 20 mg PO BID 07/10/22 [History] Atorvastatin [Lipitor] 10 mg PO HS 10/06/22 [History] Cyclobenzaprine [Flexeril] 10 mg PO HS 10/06/22 [History] LORazepam [Ativan] 0.5 mg PO HS PRN 10/06/22 [History] lisinopriL [Zestril] 5 mg PO BID #30 tab 10/10/22 [Rx] Diphenoxylate HCl/Atropine [Lomotil 2.5-0.025 mg Tablet] 2 tab PO TID PRN 12/17/22 [History] Propranolol [Inderal] 10 mg PO DAILY 12/17/22 [History] SUMAtriptan succinate [Imitrex] 50 mg PO BID PRN 12/17/22 [History] Selenium Sulfide 1 applic TOPICAL DIRECTED PRN 12/17/22 [History] Ascorbic Acid [Vitamin C] 500 mg PO DAILY #30 tab 12/20/22 [Rx] Cholecalciferol (Vitamin D3) [Vitamin D3] 1,250 mcg PO TU #30 tab 12/20/22 [Rx] Sodium Bicarbonate Tab 650 mg PO BID #60 tab 12/20/22 [Rx] Zinc Sulfate [Orazinc] 220 mg PO DAILY #30 cap 12/20/22 [Rx] Follow up Appointment(s)/Referral(s): Mohit Curran MD [Primary Care Provider] - 1-2 days Patient Instructions/Handouts: Hyperkalemia (DC), Acute Nausea and Vomiting (DC), Tachycardia (ED) Activity/Diet/Wound Care/Special Instructions: Heart healthy diet Activity is restricted till you see your doctor Follow up as directed, sooner for worsening symptoms, problems, or concerns. Discharge Disposition: HOME SELF-CARE
--- NOTE | 2022-12-22 16:40 | CDI ---
Documentation Clarification Form Date: 12/22/2022 04:26:06 PM From: Kita Camara Phone: Admit Date: 12/18/2022 01:07:00 PM Patient Name: Yarely Enamorado Visit Number: [id number] Discharge Date: 12/20/2022 06:07:00 PM ATTENTION: The Clinical Documentation Specialists (CDI) and [facility] Coding Staff appreciate your assistance in clarifying documentation. Please respond to the clarification below the line at the bottom and electronically sign. The CDI & [facility] Coding staff will review the response and follow-up if needed. Please note: Queries are made part of the Legal Health Record. If you have any questions, please contact the author of this message via ITS. Dr. Butler E Berta Chronic kidney disease stage Mike 2is documented per Nephro Consult and Progress Notes. Additional clarification regarding the specific stage of CKD is requested. History/Risk Factors: 32yo F, COVID, tracheobronchitis &gastroenteritis, transaminitis, hypernatremia, ATN on CKD, anemia of chronic disease, DMI w insulin pump w biopsy-provendiabetic nephropathy Baseline creatinine around 1.1 mg/dL with previous episodes ofacute kidney injury Clinical Indicators: BUN: 12/18 30 12/19 28 12/20 29.7 Creat: 12/18 1.34-1.43 12/19 1.29 12/20 1.3 AA GFR: 12/18 55-60 12/19 63 NonAA GFR: 12/18 48-52 12/19 54 Treatment: Patient hasnephrotic syndromewith previous protein creatinine ratio around 4. Maintained on CARLOS EDUARDO inhibitors and Aldactone. Please clarify the stage of the CKD, if known: [ ] CKD Stage 1 (GFR > 90) [ ] CKD Stage 2 (GFR 60-89) [ ] CKD Stage 3 (GFR 30-59) [ ] CKD Stage 3a (GFR 45-59) [ ] Other, please specify [ ] Unable to determine (Template Last revised: March 2020) CKD Stage 2 MTDD
== END 2022-12-20 18:07 | disposition home or self-care (01) | DRG 177 ==
LOC: EC 18:34 → 6NMEDSUR 21:25 → OBSVTOIN 12-18 13:07
PROVIDERS: ADMIT Hospitalist; ATTEND Hospitalist
DX: U07.1 COVID-19 (principal); N17.0 Acute kidney failure with tubular necrosis; E87.0 Hyperosmolality and hypernatremia; E87.1 Hypo-osmolality and hyponatremia; E10.42 Type 1 diabetes mellitus with diabetic polyneuropathy; E10.22 Type 1 diabetes mellitus with diabetic chronic kidney disease; I95.2 Hypotension due to drugs; D63.8 Anemia in other chronic diseases classified elsewhere; I12.9 Hypertensive chronic kidney disease with stage 1 through stage 4 chronic kidney disease, or unspecified chronic kidney disease; E86.0 Dehydration; E87.5 Hyperkalemia; K21.9 Gastro-esophageal reflux disease without esophagitis; N18.2 Chronic kidney disease, stage 2 (mild); J20.8 Acute bronchitis due to other specified organisms; K52.89 Other specified noninfective gastroenteritis and colitis; T44.5X5A Adverse effect of predominantly beta-adrenoreceptor agonists, initial encounter; R82.71 Bacteriuria; E87.70 Fluid overload, unspecified; Z96.41 Presence of insulin pump (external) (internal); Z79.4 Long term (current) use of insulin; Z97.5 Presence of (intrauterine) contraceptive device; Z28.310 Unvaccinated for COVID-19; Z79.899 Other long term (current) drug therapy; Z88.1 Allergy status to other antibiotic agents; Z88.8 Allergy status to other drugs, medicaments and biological substances; Z86.14 Personal history of Methicillin resistant Staphylococcus aureus infection; Z87.891 Personal history of nicotine dependence
CPT/HCPCS: 36415; 71046; 80048; 80053; 81001; 81025; 82009; 82550; 82728; 83036; 83540; 83550; 83605; 83735; 83930; 83935; 84145; 84443; 84703; 85025; 85379; 86140; 87077; 87086; 87186; 87636; 93005; 96361; 96374; 99285

== ENCOUNTER 2023-01-05 14:11 | Inpatient (IN) | payer BC ==
--- NOTE | 2023-01-05 15:15 | ED ---
General Adult HPI - General Chief complaint: Recheck/Abnormal Lab/Rx Stated complaint: Swelling/hypertension Time Seen by Provider: 01/05/23 15:11 Source: patient Mode of arrival: wheelchair Limitations: no limitations - History of Present Illness Initial comments: 32-year-old female with past history of nephrotic syndrome who presents to the emergency department reporting lower extremity swelling. States that she takes torsemide daily for her lower extremity swelling. Over the past couple of days the patient has had worsening swelling. She saw her insurance sales specialist on Thursday. They added on Zaroxolyn. She was told that she is supposed to lose 2 pounds a day. States that she has not lost any weight but continues to gain a pound. Her swelling in her lower extremities is worse. She is also reporting to some shortness of breath. She called her nephrology office who recommended that she come in for IV diuresis. Patient denies any chest pain. No other alleviating, precipitating or modifying factors - Related Data Home Medications Medication Instructions Recorded Confirmed Insulin Aspart (For Pump) [NovoLOG 0.01 unit SQ-PUMP CONTINUOUS 11/08/17 01/05/23 (For Pump)] Metoprolol Tartrate [Lopressor] 12.5 mg PO BID 07/10/22 01/05/23 Omeprazole 20 mg PO BID 07/10/22 01/05/23 Atorvastatin [Lipitor] 10 mg PO HS 10/06/22 01/05/23 Cyclobenzaprine [Flexeril] 10 mg PO HS 10/06/22 01/05/23 LORazepam [Ativan] 0.5 mg PO HS PRN 10/06/22 01/05/23 Diphenoxylate HCl/Atropine 2 tab PO TID PRN 12/17/22 01/05/23 [Lomotil 2.5-0.025 mg Tablet] Propranolol [Inderal] 10 mg PO DAILY 12/17/22 01/05/23 SUMAtriptan succinate [Imitrex] 50 mg PO BID PRN 12/17/22 01/05/23 Selenium Sulfide 1 applic TOPICAL DIRECTED PRN 12/17/22 01/05/23 Ciprofloxacin HCl [Cipro] 500 mg PO Q12HR 01/05/23 01/05/23 Dextroamphetamine/Amphetamine 20 mg PO BID PRN 01/05/23 01/05/23 [Adderall] lisinopriL [Zestril] 5 mg PO BID 01/05/23 01/05/23 metOLazone [Zaroxolyn] 5 mg PO DAILY 01/05/23 01/05/23 Previous Rx's Medication Instructions Recorded Ascorbic Acid [Vitamin C] 500 mg PO DAILY #30 tab 12/20/22 Sodium Bicarbonate Tab 650 mg PO BID #60 tab 12/20/22 Cholecalciferol (Vitamin D3) 125 mcg PO DAILY 30 Days #30 cap 12/22/22 [Vitamin D3 (125 MCG = 5,000 IU)] Allergies Allergy/AdvReac Type Severity Reaction Status Date / Time cephalexin [From Keflex] Allergy Swelling Verified 01/05/23 15:14 (tongue) midazolam [From Versed] AdvReac very Verified 01/05/23 15:14 anxious feeling Review of Systems ROS Statement: Those systems with pertinent positive or pertinent negative responses have been documented in the HPI. ROS Other: All systems not noted in ROS Statement are negative. Past Medical History Past Medical History: Asthma, Diabetes Mellitus, GERD/Reflux, Hypertension, Renal Disease Additional Past Medical History / Comment(s): hx. hiatal hernia, diabetic- TYPE 1 chronic kidney disease-protein in urine , albumin, MIGRAINE HEADACHES, CHILDHOOD ASTHMA, neuropathy in feet and legs, diabetic neuropathy History of Any Multi-Drug Resistant Organisms: MRSA Date of last positivie culture/infection: 2009 MDRO Source:: abdomen left side Past Surgical History: Section Additional Past Surgical History / Comment(s): surgery on cervix for abnormal cells, surgery groin area for grown hairs. bilateral cataract surgery with im plants, Past Anesthesia/Blood Transfusion Reactions: Motion Sickness Additional Past Anesthesia/Blood Transfusion Reaction / Comment(s): Pt has clausterphobia. Past Psychological History: ADD/ADHD, Anxiety, Depression Smoking Status: Former smoker Past Alcohol Use History: Occasional Past Drug Use History: None Reported - Past Family History Mother Family Medical History: No Reported History, Thyroid Disorder Additional Family Medical History / Comment(s): gestational diabetes Father Family Medical History: No Reported History Additional Family Medical History / Comment(s): chrons disease General Exam Limitations: no limitations General appearance: alert, in no apparent distress Head exam: Present: atraumatic, normocephalic, normal inspection Eye exam: Present: normal appearance, PERRL, EOMI. Absent: scleral icterus, conjunctival injection, periorbital swelling ENT exam: Present: normal exam, mucous membranes moist Neck exam: Present: normal inspection. Absent: tenderness, meningismus, lymphadenopathy Respiratory exam: Present: normal lung sounds bilaterally. Absent: respiratory distress, wheezes, rales, rhonchi, stridor Cardiovascular Exam: Present: regular rate, normal rhythm, normal heart sounds. Absent: systolic murmur, diastolic murmur, rubs, gallop, clicks GI/Abdominal exam: Present: soft, normal bowel sounds. Absent: distended, tenderness, guarding, rebound, rigid Extremities exam: Present: full ROM, normal capillary refill, pedal edema. Absent: tenderness, joint swelling, calf tenderness Back exam: Present: normal inspection Neurological exam: Present: alert, oriented X3, CN II-XII intact Psychiatric exam: Present: normal affect, normal mood Skin exam: Present: warm, dry, intact, normal color. Absent: rash Course Vital Signs 01/05/23 01/05/23 01/05/23 14:14 15:28 16:00 Temperature 97.4 F L Pulse Rate 95 87 89 Respiratory 16 18 8 L Rate Blood Pressure 167/110 168/110 177/108 O2 Sat by Pulse 100 99 100 Oximetry 01/05/23 01/05/23 01/05/23 17:00 17:30 18:00 Temperature Pulse Rate 89 88 87 Respiratory 13 17 17 Rate Blood Pressure 176/117 175/114 166/104 O2 Sat by Pulse 100 99 96 Oximetry 01/05/23 01/05/23 01/05/23 18:30 19:00 19:30 Temperature Pulse Rate 91 90 90 Respiratory 0 L 19 18 Rate Blood Pressure 174/103 171/107 168/105 O2 Sat by Pulse 99 100 100 Oximetry 01/05/23 01/05/23 20:00 20:30 Temperature Pulse Rate 96 93 Respiratory 19 13 Rate Blood Pressure 168/105 185/120 O2 Sat by Pulse 100 98 Oximetry Medical Decision Making - Medical Decision Making Was pt. sent in by a medical professional or institution (, PA, [facility], urgent care, hospital, or prison...) When possible be specific @ -Patient was sent in from her nephrology office Did you speak to anyone other than the patient for history (EMS, parent, family, police, friend...)? What history was obtained from this source @ -No Did you review nursing and triage notes (agree or disagree)? Why? @ -I reviewed and agree with nursing and triage notes Were old charts reviewed (outside hosp., previous admission, EMS record, old EKG, old radiological studies, urgent care reports/EKG's, prison records)? Report findings @ -Discharge summary from last visit was reviewed. States that patient was taken off of her diuretic however she states she continue taking it Differential Diagnosis (chest pain, altered mental status, abdominal pain women, abdominal pain men, vaginal bleeding, weakness, fever, dyspnea, syncope, headache, dizziness, GI bleed, back pain, seizure, CVA, palpatations, mental health, musculoskeletal)? @ -Peripheral edema, DVT, exacerbation of nephrotic syndrome EKG interpreted by me (3pts min.). @ -Yes and demonstrates sinus rhythm with rate of 89. [place] interval 134. QRS 106. QTC of 419. No acute ST segment elevations or depressions X-rays interpreted by me (1pt min.). @ -None done CT interpreted by me (1pt min.). @ -None done U/S interpreted by me (1pt. min.). @ -None done What testing was considered but not performed or refused? (CT, X-rays, U/S, labs)? Why? @ -None What meds were considered but not given or refused? Why? @ -None Did you discuss the management of the patient with other professionals (professionals i.e. , PA, [facility], lab, RT, psych nurse, dialysis social worker, cook mayonnaise, teacher, ship's electronic warfare officer, case sealer)? Give summary @ -I spoke with Lashonda from [facility] agreed to admit the patient Was smoking cessation discussed for >3mins.? @ -No Was critical care preformed (if so, how long)? @ -No Were there social determinants of health that impacted care today? How? (Homelessness, low income, unemployed, alcoholism, drug addiction, transportation, low edu. Level, literacy, decrease access to med. care, usp, rehab)? @ -No Was there de-escalation of care discussed even if they declined (Discuss DNR or withdrawal of care, Hospice)? DNR status @ -No What co-morbidities impacted this encounter? (DM, HTN, Smoking, COPD, CAD, Cancer, CVA, ARF, Chemo, Hep., AIDS, mental health diagnosis, sleep apnea, morbid obesity)? @ -Nephrotic syndrome Was patient admitted / discharged? Hospital course, mention meds given and route, prescriptions, significant lab abnormalities, going to OR and other pertinent info. @ -Admitted. Upon arrival patient is placed into room 9. Thorough history and physical exam was performed. Patient does have worsening swelling even though she is on 2 diuretics. She was directed to the ER by her insurance sales specialist. Laboratory studies are conducted. Patient does have 3+ protein in her urine. Patient will be started on IV diuresis. Recommended admission with nephrology consultation. Patient was agreeable to this. She was admitted to the floor in stable condition Undiagnosed new problem with uncertain prognosis? @ -No Drug Therapy requiring intensive monitoring for toxicity (Heparin, Nitro, Insulin, Cardizem)? @ -No Were any procedures done? @ -No Diagnosis/symptom? @ -Acute on chronic lower extremity swelling, proteinuria, accelerated hypertension, history of nephrotic syndrome Acute, or Chronic, or Acute on Chronic? @ -Acute on chronic Uncomplicated (without systemic symptoms) or Complicated (systemic symptoms)? @ -Complicated Side effects of treatment? @ -No Exacerbation, Progression, or Severe Exacerbation? @ -Yes Poses a threat to life or bodily function? How? (Chest pain, USA, CT, pneumonia, PE, COPD, DKA, ARF, appy, cholecystitis, CVA, Diverticulitis, Homicidal, Suicidal, threat to staff... and all critical care pts) @ -No - Lab Data Result diagrams: 01/05/23 15:40 01/05/23 15:40 Lab Results 01/05/23 01/05/23 01/05/23 Range/Units 15:40 15:40 15:40 WBC 7.9 (3.8-10.6) k/uL RBC 3.62 L (3.80-5.40) m/uL Hgb 10.8 L (11.4-16.0) gm/dL Hct 31.5 L (34.0-46.0) % MCV 87.1 (80.0-100.0) fL MCH 29.7 (25.0-35.0) pg MCHC 34.1 (31.0-37.0) g/dL RDW 13.4 (11.5-15.5) % Plt Count 280 (150-450) k/uL MPV 7.6 Neutrophils % 55 % Lymphocytes % 37 % Monocytes % 5 % Eosinophils % 1 % Basophils % 0 % Neutrophils # 4.3 (1.3-7.7) k/uL Lymphocytes # 2.9 (1.0-4.8) k/uL Monocytes # 0.4 (0-1.0) k/uL Eosinophils # 0.1 (0-0.7) k/uL Basophils # 0.0 (0-0.2) k/uL PT 9.6 L (10.0-12.5) sec INR 0.9 (<1.2) APTT 23.8 (22.0-30.0) sec Sodium 132 L (137-145) mmol/L Potassium 5.0 (3.5-5.1) mmol/L Chloride 107 (98-107) mmol/L Carbon Dioxide 22 (22-30) mmol/L Anion Gap 3 mmol/L BUN 34 H (7-17) mg/dL Creatinine 1.37 H (0.52-1.04) mg/dL Est GFR (CKD-EPI)AfAm 58 (>60 ml/min/1.73 sqM) Est GFR (CKD-EPI)NonAf 51 (>60 ml/min/1.73 sqM) Glucose 137 H (74-99) mg/dL Calcium 8.8 (8.4-10.2) mg/dL Total Bilirubin 0.2 (0.2-1.3) mg/dL AST 41 H (14-36) U/L ALT 60 H (4-34) U/L Alkaline Phosphatase 119 (38-126) U/L Troponin I (0.000-0.034) ng/mL Total Protein 5.3 L (6.3-8.2) g/dL Albumin 2.4 L (3.5-5.0) g/dL Urine Color Urine Appearance (Clear) Urine pH (5.0-8.0) Ur Specific [place] (1.001-1.035) Urine Protein (Negative) Urine Glucose (UA) (Negative) Urine Ketones (Negative) Urine Blood (Negative) Urine Nitrite (Negative) Urine Bilirubin (Negative) Urine Urobilinogen (<2.0) mg/dL Ur Leukocyte Esterase (Negative) Urine RBC (0-5) /hpf Urine WBC (0-5) /hpf Ur Squamous Epith Cells (0-4) /hpf Hyaline Casts (0-2) /lpf Urine Mucus (None) /hpf Urine Creatinine mg/dL Protein/Creatinin Ratio Urine Total Protein mg/dL 01/05/23 01/05/23 01/05/23 Range/Units 15:40 16:29 16:29 WBC (3.8-10.6) k/uL RBC (3.80-5.40) m/uL Hgb (11.4-16.0) gm/dL Hct (34.0-46.0) % MCV (80.0-100.0) fL MCH (25.0-35.0) pg MCHC (31.0-37.0) g/dL RDW (11.5-15.5) % Plt Count (150-450) k/uL MPV Neutrophils % % Lymphocytes % % Monocytes % % Eosinophils % % Basophils % % Neutrophils # (1.3-7.7) k/uL Lymphocytes # (1.0-4.8) k/uL Monocytes # (0-1.0) k/uL Eosinophils # (0-0.7) k/uL Basophils # (0-0.2) k/uL PT (10.0-12.5) sec INR (<1.2) APTT (22.0-30.0) sec Sodium (137-145) mmol/L Potassium (3.5-5.1) mmol/L Chloride (98-107) mmol/L Carbon Dioxide (22-30) mmol/L Anion Gap mmol/L BUN (7-17) mg/dL Creatinine (0.52-1.04) mg/dL Est GFR (CKD-EPI)AfAm (>60 ml/min/1.73 sqM) Est GFR (CKD-EPI)NonAf (>60 ml/min/1.73 sqM) Glucose (74-99) mg/dL Calcium (8.4-10.2) mg/dL Total Bilirubin (0.2-1.3) mg/dL AST (14-36) U/L ALT (4-34) U/L Alkaline Phosphatase (38-126) U/L Troponin I <0.012 (0.000-0.034) ng/mL Total Protein (6.3-8.2) g/dL Albumin (3.5-5.0) g/dL Urine Color Light Yellow Urine Appearance Clear (Clear) Urine pH 6.5 (5.0-8.0) Ur Specific [place] 1.022 (1.001-1.035) Urine Protein 3+ H (Negative) Urine Glucose (UA) 4+ H (Negative) Urine Ketones Negative (Negative) Urine Blood Trace H (Negative) Urine Nitrite Negative (Negative) Urine Bilirubin Negative (Negative) Urine Urobilinogen <2.0 (<2.0) mg/dL Ur Leukocyte Esterase Negative (Negative) Urine RBC 5 (0-5) /hpf Urine WBC 2 (0-5) /hpf Ur Squamous Epith Cells <1 (0-4) /hpf Hyaline Casts 1 (0-2) /lpf Urine Mucus Rare H (None) /hpf Urine Creatinine 97.4 mg/dL Protein/Creatinin Ratio Urine Total Protein >600.0 mg/dL Disposition Clinical Impression: Peripheral edema, Nephrotic syndrome, Accelerated hypertension Disposition: ADMITTED IP TO THIS [facility] Condition: Stable Is patient prescribed a controlled substance at d/c from ED?: No Time of Disposition: 18:38 Decision to Admit Reason: Admit from EC Decision Date: 01/05/23 Decision Time: 18:38
[2023-01-05 15:55] LABS: Basophils % (A) 0 %; Eosinophils # (A) 0.1 k/uL (0-0.7); Eosinophils % (A) 1 %; HCT 31.5 % (34.0-46.0); HGB 10.8 gm/dL (11.4-16.0); Lymphocytes # (A) 2.9 k/uL (1.0-4.8); Lymphocytes % (A) 37 %; MCH 29.7 pg (25.0-35.0); MCHC 34.1 g/dL (31.0-37.0); MCV 87.1 fL (80.0-100.0); Mean Platelet Volume 7.6; Monocytes # (A) 0.4 k/uL (0-1.0); Monocytes % (A) 5 %; Neutrophils # (A) 4.3 k/uL (1.3-7.7); Neutrophils % (A) 55 %; Platelet Count 280 k/uL (150-450); RBC 3.62 m/uL (3.80-5.40); RDW 13.4 % (11.5-15.5); WBC 7.9 k/uL (3.8-10.6)
[2023-01-05 16:03] LABS: INR 0.9 (<1.2); Partial Thromboplastin Time 23.8 sec (22.0-30.0); Prothrombin Time 9.6 sec (10.0-12.5)
[2023-01-05 16:21] LABS: ALT 60 U/L (4-34); AST 41 U/L (14-36); African American GFR (CKD) 58 (>60 ml/min/1.73 sqM); Albumin 2.4 g/dL (3.5-5.0); Alkaline Phosphatase 119 U/L (38-126); Anion Gap 3 mmol/L; Blood Urea Nitrogen 34 mg/dL (7-17); Calcium 8.8 mg/dL (8.4-10.2); Carbon Dioxide 22 mmol/L (22-30); Chloride 107 mmol/L (98-107); Glucose 137 mg/dL (74-99); Non-African American GFR(CKD) 51 (>60 ml/min/1.73 sqM); Sodium 132 mmol/L (137-145); Total Bilirubin 0.2 mg/dL (0.2-1.3); Total Protein 5.3 g/dL (6.3-8.2)
[2023-01-05 17:39] LABS: Appearance,Urine Clear (Clear); Bilirubin,Urine Negative (Negative); Blood,Urine Trace (Negative); Color,Urine Light Yellow; Glucose,Urine (UA) 4+ (Negative); Hyaline Casts,Urine 1 /lpf (0-2); Ketones,Urine Negative (Negative); Leukocyte Esterase,Urine Negative (Negative); Mucus,Urine Rare /hpf; Nitrite,Urine Negative (Negative); PH, Urine 6.5 (5.0-8.0); Protein,Urine 3+ (Negative); RBC,Urine 5 /hpf (0-5); Specific Gravity,Urine 1.022 (1.001-1.035); Squamous Epithelial Cell,Urine <1 /hpf (0-4); Urobilinogen,Urine <2.0 mg/dL (<2.0); WBC,Urine 2 /hpf (0-5)
[2023-01-05] MEDS ORDERED: FUROSEMIDE 10 MG/ML 10 ML VIAL IV STA (18:28)
[2023-01-05] MEDS ORDERED: NALOXONE 0.4 MG/ML 1 ML VIAL IV PRN (18:38)
[2023-01-05 20:09] LABS: Creatinine,Urine Random 97.4 mg/dL
[2023-01-05] MEDS ORDERED: SUMAtriptan succinate 50 MG TAB PO PRN (21:11)
[2023-01-05] MEDS ORDERED: DIPHENOX-ATROP 2.5-0.025 MG 1 EACH TAB PO PRN (21:11)
[2023-01-05] MEDS ORDERED: PATIENT'S OWN (Dextroamphetamine/Amphetamine [Adderall] 20 MG Tablet) PO PRN (21:11)
[2023-01-05] MEDS ORDERED: LORazepam 0.5 MG TAB PO PRN (21:11)
[2023-01-05 22:37] LABS: Glucose,Whole Blood 110 mg/dL (70-110)
[2023-01-05] MEDS: ATORVASTATIN 10 MG TAB PO SCH (22:37)
[2023-01-05] MEDS: PANTOPRAZOLE 40 MG TABLET PO SCH (22:37)
[2023-01-05] MEDS: SODIUM BICARBONATE TAB 650 MG TAB PO SCH (22:37)
[2023-01-05] MEDS: CYCLOBENZAPRINE 10 MG TAB PO SCH (22:37)
[2023-01-05] MEDS: lisinopriL 5 MG TAB PO SCH (22:37)
[2023-01-05] MEDS: METOPROLOL TARTRATE 12.5 MG TAB PO SCH (22:37)
[2023-01-05] MEDS: Insulin Aspart (For Pump) 100 UNIT/ML VIAL SQ-PUMP SCH (22:37)
[2023-01-06] MEDS: lisinopriL 5 MG TAB PO SCH ×2 (08:53→22:31)
[2023-01-06] MEDS: PANTOPRAZOLE 40 MG TABLET PO SCH ×2 (08:53→22:32)
[2023-01-06] MEDS: SODIUM BICARBONATE TAB 650 MG TAB PO SCH (08:53)
[2023-01-06] MEDS: PROPRANOLOL 10 MG TAB PO SCH (08:53)
[2023-01-06] MEDS: METOPROLOL TARTRATE 12.5 MG TAB PO SCH ×2 (08:53→22:31)
[2023-01-06 09:33] LABS: Basophils # (A) 0.05 X 10*3/uL (0.00-0.10); Basophils % (A) 0.6 %; Eosinophils # (A) 0.13 X 10*3/uL (0.04-0.35); Eosinophils % (A) 1.6 %; HCT 30.7 % (37.2-46.3); HGB 10.2 g/dL (12.0-15.0); Lymphocytes # (A) 3.35 X 10*3/uL (0.90-5.00); Lymphocytes % (A) 42.5 %; MCH 29.1 pg (27.0-32.0); MCHC 33.2 g/dL (32.0-37.0); MCV 87.7 FL (80.0-97.0); Mean Platelet Volume 10.3 FL (9.5-12.2); Monocytes # (A) 0.59 X 10*3/uL (0.20-1.00); Monocytes % (A) 7.5 %; NRBC Per 100 WBC 0 X 10*3/uL (0.00-0.01); Neutrophils # (A) 3.69 X 10*3/uL (1.80-7.70); Neutrophils % (A) 46.8 %; Platelet Count 304 X 10*3/uL (140-440); RDW 13.4 % (11.5-14.5); WBC 7.89 X 10*3/uL (4.50-10.00)
[2023-01-06 09:41] LABS: BUN/Creat Ratio 22.69 Ratio (12.00-20.00); Blood Urea Nitrogen 29.5 mg/dL (9.0-27.0); Calcium 8.8 mg/dL (8.7-10.3); Carbon Dioxide 24.2 mmol/L (21.6-31.8); Chloride 106 mmol/L (96-109); Glucose 141 mg/dL (70-110); Potassium 4.6 mmol/L (3.5-5.5); Sodium 137 mmol/L (135-145)
--- NOTE | 2023-01-06 14:42 | P.NPCON ---
History of Present Illness - Reason for Consult chronic renal failure - History of Present Illness Reason for consultation: Chronic kidney disease next History of present illness: Patient is a 32-year-old female seen in renal consultation for chronic kidney disease. Patient has chronic kidney disease stage 2/3A with baseline creatinine near 1.3 secondary to biopsy-proven diabetic kidney disease. Patient states she was started on metolazone on Thursday and that didn't help with her edema. Patient states she has gained about 20 pounds in the last 2 months or so. She denies use of nonsteroidals. Patient does have nephrotic syndrome. No vomiting or diarrhea. No chest shortness of breath. Denies history of coronary artery disease. Patient also states her blood pressure was elevated but is currently stable with most recent reading of 135/80. She did receive 1 dose of IV Lasix this admission. At home she was taking torsemide 30 mg twice daily as well as metolazone. Vital signs are stable. General: No acute distress. HEENT: Head exam is unremarkable. LUNGS: No audible rhonchi or wheezes. HEART: Rate and Rhythm are regular. ABDOMEN: Nontender. EXTREMITITES: 1+ edema. Past Medical History Past Medical History: Asthma, Diabetes Mellitus, GERD/Reflux, Hypertension, Renal Disease Additional Past Medical History / Comment(s): hx. hiatal hernia, diabetic- TYPE 1 chronic kidney disease-protein in urine , albumin, MIGRAINE HEADACHES, CHILDHOOD ASTHMA, neuropathy in feet and legs, diabetic neuropathy History of Any Multi-Drug Resistant Organisms: MRSA Date of last positivie culture/infection: 2009 MDRO Source:: abdomen left side Past Surgical History: Section Additional Past Surgical History / Comment(s): surgery on cervix for abnormal cells, surgery groin area for grown hairs. bilateral cataract surgery with implants, Past Anesthesia/Blood Transfusion Reactions: Motion Sickness Additional Past Anesthesia/Blood Transfusion Reaction / Comment(s): Pt has clausterphobia. Past Psychological History: ADD/ADHD, Anxiety, Depression Smoking Status: Former smoker Past Alcohol Use History: Occasional Past Drug Use History: None Reported - Past Family History Mother Family Medical History: No Reported History, Thyroid Disorder Additional Family Medical History / Comment(s): gestational diabetes Father Family Medical History: No Reported History Additional Family Medical History / Comment(s): chrons disease Medications and Allergies Home Medications Medication Instructions Recorded Confirmed Type Insulin Aspart (For Pump) [NovoLOG 0.01 unit SQ-PUMP CONTINUOUS 11/08/17 01/05/23 History (For Pump)] Metoprolol Tartrate [Lopressor] 12.5 mg PO BID 07/10/22 01/05/23 History Omeprazole 20 mg PO BID 07/10/22 01/05/23 History Atorvastatin [Lipitor] 10 mg PO HS 10/06/22 01/05/23 History Cyclobenzaprine [Flexeril] 10 mg PO HS 10/06/22 01/05/23 History LORazepam [Ativan] 0.5 mg PO HS PRN 10/06/22 01/05/23 History Diphenoxylate HCl/Atropine 2 tab PO TID PRN 12/17/22 01/05/23 History [Lomotil 2.5-0.025 mg Tablet] Propranolol [Inderal] 10 mg PO DAILY 12/17/22 01/05/23 History SUMAtriptan succinate [Imitrex] 50 mg PO BID PRN 12/17/22 01/05/23 History Selenium Sulfide 1 applic TOPICAL DIRECTED PRN 12/17/22 01/05/23 History Ascorbic Acid [Vitamin C] 500 mg PO DAILY #30 tab 12/20/22 01/05/23 Rx Sodium Bicarbonate Tab 650 mg PO BID #60 tab 12/20/22 01/05/23 Rx Cholecalciferol (Vitamin D3) 125 mcg PO DAILY 30 Days #30 cap 12/22/22 01/05/23 Rx [Vitamin D3 (125 MCG = 5,000 IU)] Ciprofloxacin HCl [Cipro] 500 mg PO Q12HR 01/05/23 01/05/23 History Dextroamphetamine/Amphetamine 20 mg PO BID PRN 01/05/23 01/05/23 History [Adderall] lisinopriL [Zestril] 5 mg PO BID 01/05/23 01/05/23 History metOLazone [Zaroxolyn] 5 mg PO DAILY 01/05/23 01/05/23 History Allergies Allergy/AdvReac Type Severity Reaction Status Date / Time cephalexin [From Keflex] Allergy Swelling Verified 01/05/23 15:14 (tongue) midazolam [From Versed] AdvReac very Verified 01/05/23 15:14 anxious feeling Physical Exam Vitals: Vital Signs Temp Pulse Pulse Resp BP BP Pulse Ox 11/14/23 13:36 97.6 F 65 17 135/70 98 01/06/23 07:00 97.5 F L 98 17 149/98 100 01/06/23 06:00 91 18 153/94 99 01/06/23 03:27 97.7 F 90 17 152/107 98 01/06/23 02:00 86 16 145/91 01/06/23 01:00 80 15 104/72 01/06/23 00:00 85 16 148/94 98 01/05/23 23:00 100 16 186/122 99 01/05/23 21:30 100 18 189/126 98 01/05/23 21:00 101 H 16 191/131 98 01/05/23 20:30 93 13 185/120 98 01/05/23 20:00 96 19 168/105 100 01/05/23 19:30 90 18 168/105 100 01/05/23 19:00 90 19 171/107 100 01/05/23 18:30 91 0 L 174/103 99 01/05/23 18:00 87 17 166/104 96 01/05/23 17:30 88 17 175/114 99 01/05/23 17:00 89 13 176/117 100 01/05/23 16:00 89 8 L 177/108 100 01/05/23 15:28 87 18 168/110 99 Intake and Output 01/05/23 01/06/23 01/06/23 22:59 06:59 14:59 Intake Total 236 Balance 236 Intake: Oral 236 Other: Voiding Method Toilet # Voids 2 Weight 94.801 kg Results - Lab Results Most recent lab results Calcium 8.8 mg/dL (8.7-10.3) 01/06/23 05:47 Urine Creatinine 97.4 mg/dL 01/05/23 16:29 Urine Total Protein >600.0 mg/dL 01/05/23 16:29 01/06/23 05:47 01/06/23 05:47 Assessment and Plan Plan: Assessment: 1. Chronic kidney disease stage IIIA with baseline creatinine near 1.3 secondary to biopsy-proven diabetic kidney disease. 2. Lower extremity edema secondary to nephrotic syndrome. 3. Hypertension with chronic kidney disease. 4. Type 1 diabetes. Plan: Add IV Lasix 40 mg twice daily. Low-salt diet and 1500 mL fluid restriction. Hold lisinopril for systolic blood pressure less than 110/60. Avoid nephrotoxins. Continue to monitor renal function and urine output. Stop bicarb. Thank you for the consultation. I will continue to follow the patient with you during her hospital stay.
[2023-01-06] MEDS: FUROSEMIDE 10 MG/ML 4 ML VIAL IV SCH ×2 (16:12→22:31)
[2023-01-06] MEDS: HEPARIN SODIUM,PORCINE 5,000 UNIT/ML 1 ML VIAL SQ SCH ×2 (16:17→23:48)
[2023-01-06] MEDS: BACITRACIN OINT 1 EACH PACKET TOPICAL SCH ×2 (17:15→22:32)
[2023-01-06] MEDS: CYCLOBENZAPRINE 10 MG TAB PO SCH (22:31)
[2023-01-06] MEDS: ATORVASTATIN 10 MG TAB PO SCH (22:31)
[2023-01-06] MEDS: Insulin Aspart (For Pump) 100 UNIT/ML VIAL SQ-PUMP SCH (22:32)
--- NOTE | 2023-01-07 01:37 | HP ---
HISTORY AND PHYSICAL CHIEF COMPLAINT: Hypertension and bilateral leg swelling. HISTORY OF PRESENT ILLNESS: This is a 32-year-old woman, who had a past medical history of nephrotic syndrome, possibly related to diabetes mellitus type 2 as per the biopsy done at [facility], was complaining of bilateral leg swelling and hypertension. The patient came to [place] and possibly admitted for further evaluation and treatment. Intravenous diuretics have been initiated. Nephrology evaluation in progress. There is no history of any fever, rigors, or chills. PAST MEDICAL HISTORY: Reviewed include diabetes mellitus, nephrotic syndrome. MEDICATIONS: Home medications are reviewed include Imitrex. Dose and rest of medications noted. ALLERGIES: Reviewed include Keflex. FAMILY HISTORY: History of thyroid disorders, diabetes. SOCIAL HISTORY: Previous history of smoking. REVIEW OF SYSTEMS: Fourteen-point review is negative except as mentioned earlier. PHYSICAL EXAMINATION: VITAL SIGNS: Pulse 98, blood pressure 149/98, respirations 17. HEENT: Conjunctivae normal. NECK: No JVD. CARDIOVASCULAR: S1, S2. RESPIRATIONS: Breath sounds diminished at the bases. ABDOMEN: Soft. LEGS: Bilateral leg edema. NERVOUS SYSTEM: Nonfocal. SKIN: No ulcer, rash, or bleeding. LABORATORY DATA: Noted. Sodium 137, creatinine is 1.3, and albumin is 2.4. ASSESSMENT: 1. Nephrotic syndrome acute exacerbation. 2. Hypertension. 3. Hypoalbuminemia. 4. Diabetes mellitus, type 2. 5. History of asthma. 6. Hypertension. 7. History of hiatal hernia. 8. History of migraine. 9. History of attention deficit disorder. 10.Anxiety, depression. RECOMMENDATIONS AND DISCUSSION: This is a patient with bilateral leg edema and nephrotic syndrome. We will continue to monitor the patient with fluid intake. The patient is started on IV Lasix. We will continue to monitor. Repeat labs will be ordered. Guarded prognosis because of multiple complex medical issues. Further recommendations to follow. See orders for further details. MMODL / IJN: [id number] / [facility]
[2023-01-07 08:39] LABS: Basophils # (A) 0.04 X 10*3/uL (0.00-0.10); Basophils % (A) 0.5 %; Eosinophils # (A) 0.08 X 10*3/uL (0.04-0.35); Eosinophils % (A) 1.1 %; HCT 28.2 % (37.2-46.3); HGB 9.4 g/dL (12.0-15.0); Lymphocytes % (A) 42.7 %; MCH 29.1 pg (27.0-32.0); MCHC 33.3 g/dL (32.0-37.0); MCV 87.3 FL (80.0-97.0); Mean Platelet Volume 10.2 FL (9.5-12.2); NRBC Per 100 WBC 0 X 10*3/uL (0.00-0.01); Neutrophils # (A) 3.51 X 10*3/uL (1.80-7.70); Neutrophils % (A) 46.9 %; Platelet Count 255 X 10*3/uL (140-440); RBC 3.23 X 10*6/uL (4.10-5.20); RDW 13.2 % (11.5-14.5); WBC 7.49 X 10*3/uL (4.50-10.00)
[2023-01-07 09:31] LABS: BUN/Creat Ratio 23.86 Ratio (12.00-20.00); Blood Urea Nitrogen 33.4 mg/dL (9.0-27.0); Calcium 8.5 mg/dL (8.7-10.3); Carbon Dioxide 23.2 mmol/L (21.6-31.8); Chloride 104 mmol/L (96-109); Glucose 359 mg/dL (70-110); Potassium 4.7 mmol/L (3.5-5.5); Sodium 134 mmol/L (135-145)
[2023-01-07] MEDS: PROPRANOLOL 10 MG TAB PO SCH (09:52)
[2023-01-07] MEDS: HEPARIN SODIUM,PORCINE 5,000 UNIT/ML 1 ML VIAL SQ SCH ×2 (09:52→20:50)
[2023-01-07] MEDS: lisinopriL 5 MG TAB PO SCH ×2 (09:52→20:50)
[2023-01-07] MEDS: BACITRACIN OINT 1 EACH PACKET TOPICAL SCH ×3 (09:52→20:51)
[2023-01-07] MEDS: METOPROLOL TARTRATE 12.5 MG TAB PO SCH ×2 (09:53→20:49)
[2023-01-07] MEDS: PANTOPRAZOLE 40 MG TABLET PO SCH ×2 (09:53→20:50)
[2023-01-07] MEDS: metOLazone 2.5 MG TAB PO SCH (10:51)
[2023-01-07 11:57] LABS: Glucose,Whole Blood 253 mg/dL (70-110)
[2023-01-07] MEDS: FUROSEMIDE 10 MG/ML 4 ML VIAL IV SCH ×2 (12:04→20:50)
--- NOTE | 2023-01-07 12:14 | P.PN ---
Subjective Patient is seen in follow-up for chronic kidney disease. On IV Lasix. Good urine output but still edematous. Blood pressure controlled. Vital signs are stable. General: No acute distress. HEENT: Head exam is unremarkable. LUNGS: No audible rhonchi or wheezes. HEART: Rate and Rhythm are regular. ABDOMEN: Nontender. EXTREMITITES: 2+ edema. Objective - Vital Signs Vital signs: Vital Signs Temp 98.0 F 01/07/23 07:00 Pulse 89 01/07/23 12:08 Resp 15 01/07/23 12:08 BP 108/75 01/07/23 12:08 Pulse Ox 98 01/07/23 07:00 FiO2 Intake & Output 01/06/23 01/07/23 01/07/23 18:59 06:59 18:59 Intake Total 236 118 Balance 236 118 Weight 94.7 kg Intake: Oral 236 118 Other: Voiding Method Toilet Toilet # Voids 2 1 - Labs CBC & Chem 7: 01/07/23 05:43 01/07/23 05:43 Labs: Abnormal Lab Results - Last 24 Hours (Table) 01/07/23 01/07/23 01/07/23 Range/Units 05:43 05:43 11:56 RBC 3.23 L (4.10-5.20) X 10*6/uL Hgb 9.4 L (12.0-15.0) g/dL Hct 28.2 L (37.2-46.3) % Sodium 134 L (135-145) mmol/L BUN 33.4 H (9.0-27.0) mg/dL Est GFR (CKD-EPI) 51 L (>=60) BUN/Creatinine Ratio 23.86 H (12.00-20.00) Ratio Glucose 359 H (70-110) mg/dL POC Glucose (mg/dL) 253 H (70-110) mg/dL Calcium 8.5 L (8.7-10.3) mg/dL Assessment and Plan Plan: Assessment: 1. Chronic kidney disease stage IIIA with baseline creatinine near 1.3 seco ndary to biopsy-proven diabetic kidney disease. 2. Lower extremity edema secondary to nephrotic syndrome. 3. Hypertension with chronic kidney disease. Controlled. 4. Type 1 diabetes. 5. Anemia. Rule out on deficiency. Plan: Maintain IV Lasix. Add metolazone. Low-salt diet and 1500 mL fluid restriction. Hold lisinopril for systolic blood pressure less than 110/60. Avoid nephrotoxins. Continue to monitor renal function and urine output. Check iron studies.
[2023-01-07] MEDS ORDERED: DEXTROSE 50% SYRINGE 50 ML IVP PRN ×2 (13:44)
[2023-01-07 16:09] LABS: % Iron Saturation 15.28 (12.00-45.00); Ferritin 72.9 ng/mL (10.0-291.0)
[2023-01-07 17:00] LABS: Glucose,Whole Blood 237 mg/dL (70-110)
[2023-01-07] MEDS: INSULIN ASPART (NovoLOG) 100 UNIT/ML VIAL SQ SCH ×2 (17:05→20:50)
[2023-01-07 20:49] LABS: Glucose,Whole Blood 371 mg/dL (70-110)
[2023-01-07] MEDS: ATORVASTATIN 10 MG TAB PO SCH (20:50)
[2023-01-07] MEDS: CYCLOBENZAPRINE 10 MG TAB PO SCH (20:50)
[2023-01-07] MEDS: Insulin Aspart (For Pump) 100 UNIT/ML VIAL SQ-PUMP SCH (20:51)
--- NOTE | 2023-01-08 03:01 | PN ---
PROGRESS NOTE DATE OF SERVICE: 01/07/2023 SUBJECTIVE: This is a 32-year-old woman, who was admitted with nephrotic syndrome, acute exacerbation, also had hypertension. The patient is on IV Lasix. The patient appears to be in diuresis. Still has significant edema. No chest pain. No palpitations. No fever. OBJECTIVE: VITAL SIGNS: Pulse is 83, blood pressure 128/86, respiratory rate is 20. HEENT: Conjunctivae normal. CARDIOVASCULAR: S1, S2. RESPIRATIONS: Breath sounds diminished at the bases. ABDOMEN: Soft, nontender. LEGS: Bilateral leg edema. LABORATORY DATA: Reviewed. ASSESSMENT: 1. Nephritic syndrome, acute exacerbation with failure of outpatient treatment. 2. Hypertension. 3. Hypoalbuminemia. 4. Diabetes mellitus, type 2. 5. History of asthma. 6. Hypertension. 7. History of hiatal hernia. 8. Multiple medical issues. RECOMMENDATIONS: Recommend to continue current medications, intravenous diuretics. The patient will require more than 24 hours and more than 2 midnights hospitalization because of the acute presentation as well as failure of outpatient treatment and need for IV Lasix. Closely follow with Nephrology. Limit intake to 1200 mL per 24 hours. Prognosis guarded. Further recommendations to follow. The patient might need a repeat renal biopsy, which Dr. Rodriguez is contemplating. MMODL / IJN: [id number] /
[2023-01-08 06:16] LABS: Glucose,Whole Blood 392 mg/dL (70-110)
[2023-01-08] MEDS: INSULIN ASPART (NovoLOG) 100 UNIT/ML VIAL SQ SCH ×4 (06:19→20:36)
[2023-01-08 08:28] LABS: BUN/Creat Ratio 28.07 Ratio (12.00-20.00); Blood Urea Nitrogen 39.3 mg/dL (9.0-27.0); Calcium 8.4 mg/dL (8.7-10.3); Carbon Dioxide 21.8 mmol/L (21.6-31.8); Chloride 102 mmol/L (96-109); Glucose 408 mg/dL (70-110); Magnesium 2.2 mg/dL (1.5-2.4); Potassium 5.1 mmol/L (3.5-5.5); Sodium 132 mmol/L (135-145)
[2023-01-08] MEDS: PANTOPRAZOLE 40 MG TABLET PO SCH ×2 (08:44→20:35)
[2023-01-08] MEDS: BACITRACIN OINT 1 EACH PACKET TOPICAL SCH ×3 (08:44→20:37)
[2023-01-08] MEDS: FUROSEMIDE 10 MG/ML 4 ML VIAL IV SCH ×2 (08:44→20:35)
[2023-01-08] MEDS: METOPROLOL TARTRATE 12.5 MG TAB PO SCH ×2 (08:44→20:35)
[2023-01-08] MEDS: HEPARIN SODIUM,PORCINE 5,000 UNIT/ML 1 ML VIAL SQ SCH ×2 (08:44→20:35)
[2023-01-08] MEDS: PROPRANOLOL 10 MG TAB PO SCH (08:45)
[2023-01-08] MEDS: lisinopriL 5 MG TAB PO SCH ×2 (08:45→20:35)
[2023-01-08] MEDS: metOLazone 2.5 MG TAB PO SCH (08:45)
[2023-01-08 12:11] LABS: Glucose,Whole Blood 289 mg/dL (70-110)
--- NOTE | 2023-01-08 12:24 | P.PN ---
Subjective Patient is seen in follow-up for chronic kidney disease. On IV Lasix and oral metolazone. States urine output improved. Blood pressure controlled. Vital signs are stable. General: No acute distress. HEENT: Head exam is unremarkable. LUNGS: No audible rhonchi or wheezes. HEART: Rate and Rhythm are regular. ABDOMEN: Nontender. EXTREMITITES: 1+ edema. Lower extremities wrapped. Objective - Vital Signs Vital signs: Vital Signs Temp 97.9 F 01/08/23 08:00 Pulse 110 H 01/08/23 08:00 Resp 16 01/08/23 08:00 BP 124/82 01/08/23 08:00 Pulse Ox 99 01/08/23 08:00 FiO2 Intake & Output 01/07/23 01/08/23 01/08/23 18:59 06:59 18:59 Intake Total 708 240 Balance 708 240 Weight 95.4 kg Intake: Oral 708 240 Other: Voiding Method Toilet Toilet # Voids 1 1 - Labs CBC & Chem 7: 01/07/23 05:43 01/08/23 05:28 Labs: Abnormal Lab Results - Last 24 Hours (Table) 01/07/23 01/07/23 01/07/23 Range/Units 05:43 16:57 20:47 Sodium (135-145) mmol/L BUN (9.0-27.0) mg/dL Est GFR (CKD-EPI) (>=60) BUN/Creatinine Ratio (12.00-20.00) Ratio Glucose (70-110) mg/dL POC Glucose (mg/dL) 237 H 371 H (70-110) mg/dL Hemoglobin A1c (<=6.0) % Calcium (8.7-10.3) mg/dL Iron 33 L (50-170) UG/DL TIBC 216 L (228-460) UG/DL Transferrin 154.0 L (204.0-354.0) mg/dL 01/08/23 01/08/23 01/08/23 Range/Units 05:28 05:28 06:14 Sodium 132 L (135-145) mmol/L BUN 39.3 H (9.0-27.0) mg/dL Est GFR (CKD-EPI) 51 L (>=60) BUN/Creatinine Ratio 28.07 H (12.00-20.00) Ratio Glucose 408 H (70-110) mg/dL POC Glucose (mg/dL) 392 H (70-110) mg/dL Hemoglobin A1c 13.6 H (<=6.0) % Calcium 8.4 L (8.7-10.3) mg/dL Iron (50-170) UG/DL TIBC (228-460) UG/DL Transferrin (204.0-354.0) mg/dL 01/08/23 Range/Units 12:09 Sodium (135-145) mmol/L BUN (9.0-27.0) mg/dL Est GFR (CKD-EPI) (>=60) BUN/Creatinine Ratio (12.00-20.00) Ratio Glucose (70-110) mg/dL POC Glucose (mg/dL) 289 H (70-110) mg/dL Hemoglobin A1c (<=6.0) % Calcium (8.7-10.3) mg/dL Iron (50-170) UG/DL TIBC (228-460) UG/DL Transferrin (204.0-354.0) mg/dL Assessment and Plan Plan: Assessment: 1. Chronic kidney disease stage IIIA with baseline creatinine near 1.3 secondary to biopsy-proven diabetic kidney disease. GFR near baseline. 2. Lower extremity edema secondary to nephrotic syndrome. 3. Hypertension with chronic kidney disease. Controlled. 4. Type 1 diabetes. 5. Anemia. Iron deficiency noted. 6. Hypotonic hyponatremia secondary to hyperglycemia. Plan: Maintain IV Lasix. Transition to oral torsemide tomorrow. Maintain metolazone. Low-salt diet and 1500 mL fluid restriction. Hold lisinopril for systolic blood pressure less than 110/60. Avoid nephrotoxins. Continue to monitor renal function and urine output. Add IV iron. Blood glucose control.
[2023-01-08] MEDS: SODIUM FERRIC GLUCONAT-SUCROSE 125 MG in SODIUM CHLORIDE 0.9% 100 ML IVPB SCH (13:56)
[2023-01-08 17:24] LABS: Glucose,Whole Blood 297 mg/dL (70-110)
[2023-01-08 20:08] LABS: Glucose,Whole Blood 324 mg/dL (70-110)
[2023-01-08] MEDS: CYCLOBENZAPRINE 10 MG TAB PO SCH (20:35)
[2023-01-08] MEDS: ATORVASTATIN 10 MG TAB PO SCH (20:35)
[2023-01-08] MEDS: Insulin Aspart (For Pump) 100 UNIT/ML VIAL SQ-PUMP SCH (20:37)
--- NOTE | 2023-01-08 20:48 | P.PN ---
Subjective Progress Note Date: 01/08/23 This is a very pleasant 32-year-old female who was recently admitted with increased lower extremity swelling along with uncontrolled hypertension being closely monitored by nephrology as patient has history of nephrotic syndrome. Patient follows with nephrology in the outpatient setting maintained on diuresis and has been transitioned IV Lasix and will continue twice daily. Patient also takes metolazone which has been resumed and considering possible transition to torsemide tomorrow. Kidney functions are stable and patient continues with lower extremity edema although slightly improved. Patient continues with Andrae wrapping to the lower extremities and has been instructed to elevate lower extr emities well at rest. Blood sugars are significantly uncontrolled and patient is maintained on insulin pump. Patient reports has been referred to endocrine outpatient although has not followed up yet. Will refer to Dr. Cason and have appointment made prior to discharge. Patient is afebrile with no reports of chest pain or shortness of breath. Patient has had adjustments to medications of blood pressure and blood pressure is more controlled although patient reports feeling slight dizziness when getting up to walk. Patient denies any lightheadedness or feeling of syncope or passing out. To continue on fluid restrictions. Review of systems: Constitutional: No reports of fatigue, fever, or chills Cardiovascular: No reports of chest pain or palpitations Respiratory: No reports of shortness of breath or cough GI: No reports of nausea, no reports of vomiting, no diarrhea : No reports of dysuria or retention Neurovascular: No reports of generalized weakness All medications have been reviewed PHYSICAL EXAMINATION: GENERAL: The patient is alert and oriented x4, Well developed, well nourished. Obese. HEENT: Pupils are round and equally reacting to light. EOMI. no scleral icterus. No conjunctival pallor. Normocephalic, atraumatic. No pharyngeal erythema. No thyromegaly. CARDIOVASCULAR: S1 and S2 muffled PULMONARY: diminished breath sounds bilaterally with no wheezing or rhonchi noted. ABDOMEN: soft. Nontender on exam. obese. non-distended, normoactive bowel soun ds. No palpable organomegaly. MUSCULOSKELETAL: No joint swelling or deformity. EXTREMITIES: No cyanosis, clubbing, patient does have 2+ pitting edema noted to bilateral feet and lower extremity swelling NEUROLOGICAL: Gross neurological examination did not reveal any focal deficits. SKIN: No rashes. Assessment: Nephrotic syndrome, acute exacerbation with failure of outpatient treatment Chronic kidney disease stage III a secondary to diabetic kidney disease Hypertension, uncontrolled Hypoalbuminemia Anemia of chronic disease, iron deficiency Diabetes mellitus, type I, insulin-dependent uncontrolled with hyperglycemia Hyponatremia secondary to hyperglycemia History of asthma, not an exacerbation History of hiatal hernia GI prophylaxis DVT prophylaxis Full code Plan: Patient is continued on IV Lasix twice daily with nephrology following and we will transition to oral torsemide. Patient is also maintained on metolazone and will continue Blood sugars are uncontrolled and patient is maintained on insulin pump and discussed with the patient that a hemoglobin A1c is above 13 and diabetes is poorly controlled. Patient reports she was referred to endocrine outpatient although has not received an appointment yet. Will have appointment scheduled prior to discharge Continue Andrae wraps from toes up to the knees bilaterally and strongly encouraged patient to continue elevating while at rest Will follow-up on repeat labs Continue fluid restrictions Patient is to follow-up outpatient as she does with nephrology and discussion of possible repeat biopsy and/or future discussion of possible kidney transplant Blood pressure medications being adjusted and blood pressure is better contr olled. Monitor for any hypotension closely. Due to multiple complex medical issues, prognosis is guarded The impression and plan of care has been dictated by Sonia White nurse hussaint bingionehernan as directed. Dr. Shaun MD I have performed a history and examination and MDM of this patient, discussed the same with the dictator, and agree with the dictator's assessment and plan as written ,documented as a scribe. Based on total visit time, I have performed more than 50% of the visit. Any additional findings or plans will be noted. Objective - Vital Signs Vital signs: Vital Signs Temp 97.8 F 01/08/23 14:23 Pulse 89 01/08/23 14:23 Resp 16 01/08/23 14:23 BP 117/81 01/08/23 14:23 Pulse Ox 100 01/08/23 14:23 FiO2 Intake & Output 01/07/23 01/08/23 01/08/23 18:59 06:59 18:59 Intake Total 708 480 Balance 708 480 Weight 95.4 kg Intake: Oral 708 480 Other: Voiding Method Toilet Toilet # Voids 1 1 - Labs CBC & Chem 7: 01/07/23 05:43 01/08/23 05:28 Labs: Abnormal Lab Results - Last 24 Hours (Table) 01/07/23 01/07/23 01/07/23 Range/Units 05:43 16:57 20:47 Sodium (135-145) mmol/L BUN (9.0-27.0) mg/dL Est GFR (CKD-EPI) (>=60) BUN/Creatinine Ratio (12.00-20.00) Ratio Glucose (70-110) mg/dL POC Glucose (mg/dL) 237 H 371 H (70-110) mg/dL Hemoglobin A1c (<=6.0) % Calcium (8.7-10.3) mg/dL Iron 33 L (50-170) UG/DL TIBC 216 L (228-460) UG/DL Transferrin 154.0 L (204.0-354.0) mg/dL 01/08/23 01/08/23 01/08/23 Range/Units 05:28 05:28 06:14 Sodium 132 L (135-145) mmol/L BUN 39.3 H (9.0-27.0) mg/dL Est GFR (CKD-EPI) 51 L (>=60) BUN/Creatinine Ratio 28.07 H (12.00-20.00) Ratio Glucose 408 H (70-110) mg/dL POC Glucose (mg/dL) 392 H (70-110) mg/dL Hemoglobin A1c 13.6 H (<=6.0) % Calcium 8.4 L (8.7-10.3) mg/dL Iron (50-170) UG/DL TIBC (228-460) UG/DL Transferrin (204.0-354.0) mg/dL 01/08/23 Range/Units 12:09 Sodium (135-145) mmol/L BUN (9.0-27.0) mg/dL Est GFR (CKD-EPI) (>=60) BUN/Creatinine Ratio (12.00-20.00) Ratio Glucose (70-110) mg/dL POC Glucose (mg/dL) 289 H (70-110) mg/dL Hemoglobin A1c (<=6.0) % Calcium (8.7-10.3) mg/dL Iron (50-170) UG/DL TIBC (228-460) UG/DL Transferrin (204.0-354.0) mg/dL
[2023-01-09 06:26] LABS: Glucose,Whole Blood 151 mg/dL (70-110)
[2023-01-09 09:09] VITALS: BP 135/86; PULSE 94; RESP 16; TEMP 98
[2023-01-09] MEDS: metOLazone 2.5 MG TAB PO SCH (09:12)
[2023-01-09] MEDS: PROPRANOLOL 10 MG TAB PO SCH (09:12)
[2023-01-09] MEDS: BACITRACIN OINT 1 EACH PACKET TOPICAL SCH (09:12)
[2023-01-09] MEDS: FUROSEMIDE 10 MG/ML 4 ML VIAL IV SCH (09:12)
[2023-01-09] MEDS: lisinopriL 5 MG TAB PO SCH (09:12)
[2023-01-09] MEDS: PANTOPRAZOLE 40 MG TABLET PO SCH (09:12)
[2023-01-09] MEDS: METOPROLOL TARTRATE 12.5 MG TAB PO SCH (09:12)
[2023-01-09] MEDS: HEPARIN SODIUM,PORCINE 5,000 UNIT/ML 1 ML VIAL SQ SCH (09:12)
[2023-01-09] MEDS: INSULIN ASPART (NovoLOG) 100 UNIT/ML VIAL SQ SCH (09:45)
[2023-01-09] MEDS: SODIUM FERRIC GLUCONAT-SUCROSE 125 MG in SODIUM CHLORIDE 0.9% 100 ML IVPB SCH (09:45)
[2023-01-09 10:54] LABS: Basophils # (A) 0.03 X 10*3/uL (0.00-0.10); Basophils % (A) 0.3 %; Eosinophils # (A) 0.09 X 10*3/uL (0.04-0.35); HCT 30.2 % (37.2-46.3); Lymphocytes # (A) 3.21 X 10*3/uL (0.90-5.00); MCH 29.1 pg (27.0-32.0); MCHC 33.1 g/dL (32.0-37.0); MCV 87.8 FL (80.0-97.0); Mean Platelet Volume 10.3 FL (9.5-12.2); Monocytes # (A) 0.71 X 10*3/uL (0.20-1.00); NRBC Per 100 WBC 0 X 10*3/uL (0.00-0.01); Neutrophils # (A) 4.81 X 10*3/uL (1.80-7.70); Platelet Count 298 X 10*3/uL (140-440); RBC 3.44 X 10*6/uL (4.10-5.20); RDW 13.3 % (11.5-14.5); WBC 8.91 X 10*3/uL (4.50-10.00)
[2023-01-09 11:15] LABS: ALT 58 U/L (8-44); AST 34 U/L (13-35); Albumin 2.3 g/dL (3.8-4.9); Albumin/Globulin Ratio 0.96 Ratio (1.60-3.17); Alkaline Phosphatase 106 U/L (41-126); BUN/Creat Ratio 25.81 Ratio (12.00-20.00); Blood Urea Nitrogen 41.3 mg/dL (9.0-27.0); Calcium 8.8 mg/dL (8.7-10.3); Carbon Dioxide 22.1 mmol/L (21.6-31.8); Chloride 105 mmol/L (96-109); Globulin 2.4 g/dL (1.6-3.3); Glucose 151 mg/dL (70-110); Sodium 134 mmol/L (135-145); Total Bilirubin <0.2 mg/dL (0.3-1.2); Total Protein 4.7 g/dL (6.2-8.2)
--- NOTE | 2023-01-09 12:19 | P.PN ---
Subjective Patient is seen in follow-up for chronic kidney disease. On IV Lasix and oral metolazone. Urine output improved. Edema better. Vital signs are stable. General: No acute distress. HEENT: Head exam is unremarkable. LUNGS: No audible rhonchi or wheezes. HEART: Rate and Rhythm are regular. ABDOMEN: Nontender. EXTREMITITES: Trace edema. Lower extremities wrapped. Objective - Vital Signs Vital signs: Vital Signs Temp 98.0 F 01/09/23 08:00 Pulse 94 01/09/23 08:00 Resp 16 01/09/23 08:00 BP 135/86 01/09/23 08:00 Pulse Ox 99 01/09/23 08:00 FiO2 Intake & Output 01/08/23 01/09/23 01/09/23 18:59 06:59 18:59 Intake Total 480 740 118 Balance 480 740 118 Intake: Oral 480 240 118 Other 500 Other: Voiding Method Toilet Toilet Toilet # Voids 3 - Labs CBC & Chem 7: 01/09/23 06:11 01/09/23 06:11 Labs: Abnormal Lab Results - Last 24 Hours (Table) 01/08/23 01/08/23 01/09/23 Range/Units 17: 20:05 06:11 RBC 3.44 L (4.10-5.20) X 10*6/uL Hgb 10.0 L (12.0-15.0) g/dL Hct 30.2 L (37.2-46.3) % Sodium (135-145) mmol/L BUN (9.0-27.0) mg/dL Creatinine (0.6-1.5) mg/dL Est GFR (CKD-EPI) (>=60) BUN/Creatinine Ratio (12.00-20.00) Ratio Glucose (70-110) mg/dL POC Glucose (mg/dL) 297 H 324 H (70-110) mg/dL Total Bilirubin (0.3-1.2) mg/dL ALT (8-44) U/L Total Protein (6.2-8.2) g/dL Albumin (3.8-4.9) g/dL Albumin/Globulin Ratio (1.60-3.17) Ratio 01/09/23 01/09/23 Range/Units 06:11 06:24 RBC (4.10-5.20) X 10*6/uL Hgb (12.0-15.0) g/dL Hct (37.2-46.3) % Sodium 134 L (135-145) mmol/L BUN 41.3 H (9.0-27.0) mg/dL Creatinine 1.6 H (0.6-1.5) mg/dL Est GFR (CKD-EPI) 43 L (>=60) BUN/Creatinine Ratio 25.81 H (12.00-20.00) Ratio Glucose 151 H (70-110) mg/dL POC Glucose (mg/dL) 151 H (70-110) mg/dL Total Bilirubin <0.2 L (0.3-1.2) mg/dL ALT 58 H (8-44) U/L Total Protein 4.7 L (6.2-8.2) g/dL Albumin 2.3 L (3.8-4.9) g/dL Albumin/Globulin Ratio 0.96 L (1.60-3.17) Ratio Assessment and Plan Plan: Assessment: 1. Chronic kidney disease stage IIIA with baseline creatinine near 1.3 secon david to biopsy-proven diabetic kidney disease. GFR was from diuresis. Creatinine 1.6. 2. Lower extremity edema secondary to nephrotic syndrome. 3. Hypertension with chronic kidney disease. Controlled. 4. Type 1 diabetes. 5. Anemia. Iron deficiency noted. 6. Hypotonic hyponatremia secondary to hyperglycemia. Improved. Plan: Change IV Lasix to oral torsemide 40 mg once daily. Maintain metolazone. Low-salt diet and 1500 mL fluid restriction. Hold lisinopril for systolic blood pressure less than 110/60. Avoid nephrotoxins. Continue to monitor renal function and urine output. Maintain IV iron. Blood glucose control. Repeat BMP and magnesium level 2-3 days postdischarge. Follow up outpatient in 1 week. Patient advised to monitor her weight closely at home. She is to take additional 20 mg of torsemide if notices worsening edema or weight gain of more than 3 pounds in 1 week duration.
[2023-01-09 12:20] LABS: Glucose,Whole Blood 245 mg/dL (70-110)
--- NOTE | 2023-01-09 14:43 | P.DS ---
Providers Date of admission: 01/07/23 11:25 Expected date of discharge: 01/09/23 Attending physician: Stacey Dunn Consults: 01/05/23 18:38 Consult Physician Urgent Consulting Provider: Raffy Rodriguez Consult Reason/Comments: accelerated hypertension, peripheral edema, nephrotic syndrome Do you want consulting provider notified?: Yes Primary care physician: Mohit Curran Hospital Course: Final diagnosis Nephrotic syndrome, acute exacerbation with failure of outpatient treatment Chronic kidney disease stage III a secondary to diabetic kidney disease Hypertension, uncontrolled Hypoalbuminemia Anemia of chronic disease, iron deficiency Diabetes mellitus, type I, insulin-dependent uncontrolled with hyperglycemia Hyponatremia secondary to hyperglycemia History of asthma, not an exacerbation History of hiatal hernia GI prophylaxis DVT prophylaxis Full code Discharge disposition Patient is being discharged in a stable condition with guarded prognosis to home . Patient will follow-up with Dr. Curran in the outpatient setting upon discharge. Patient is to continue with medications as prescribed and close outpatient follow-up with nephrology as scheduled. Patient strongly encouraged to follow up with endocrine as soon as possible in the outpatient setting for tighter glycemic control. Total time taken is greater than 35 minutes. Hospital course This is a 32-year-old female who was recently admitted with nephrotic syndrome with increased lower extremity swelling and being followed closely with nephrology. Medications being adjusted and patient was diuresed with IV Lasix and has been transitioned to 40 mg of torsemide as well as continue metolazone. Patient is to continue on fluid restriction and outpatient labs. Patient with type 1 diabetes insulin pump dependent encourage patient to follow up with endocrine for tighter glycemic control as blood sugars are extremely uncontrolled. Patient has been cleared by nephrology for discharge recommending repeat labs in the next few days and close outpatient follow-up. Patient has been instructed to continue to Andrae wrap lower extremities from the toes up to the knees and elevating while at rest. Please refer to nephrology notes for further HPI. Currently no reports of chest pain, shortness of breath, or palpitations. Patient is afebrile. No reports of nausea or vomiting and patient is tolerating diet. Patient will be discharged home today. Guarded prognosis Physical exam: Gen: This is a 32-year-old female who is awake, alert and oriented 3, well- developed, well-nourished, obese HEENT: Head is atraumatic, normocephalic. Pupils equal, round. Sclerae is anicteric. NECK: Supple. No JVD. No lymphadenopathy. No thyromegaly. LUNGS: Clear to auscultation. No wheezes or rhonchi. No intercostal retractions. HEART: Regular rate and rhythm. No murmur. ABDOMEN: Soft. Bowel sounds are present. No masses. No tenderness. EXTREMITIES: No pedal edema. No calf tenderness. Bilateral lower extremity edema 1+ pitting noted NEUROLOGICAL: Patient is awake, alert and oriented x3. Cranial nerves 2 through 12 are grossly intact. Please refer to medication reconciliation sheet for a list of medications. The impression and plan of care has been dictated by Sonia White, Nurse Practitioner as directed. Dr. Shaun MD I have performed a history and examination and MDM of this patient, discussed the same with the dictator, and agree with the dictator's assessment and plan as written ,documented as a scribe. Based on total visit time, I have performed more than 50% of the visit. Patient Condition at Discharge: Stable Plan - Discharge Summary New Discharge Prescriptions: New metOLazone [Zaroxolyn] 2.5 mg PO DAILY #30 tab Torsemide [Demadex] 40 mg PO DAILY #30 tab Continue Insulin Aspart (For Pump) [NovoLOG (For Pump)] 0.01 unit SQ-PUMP CONTINUOUS Atorvastatin [Lipitor] 10 mg PO HS LORazepam [Ativan] 0.5 mg PO HS PRN PRN Reason: Anxiety Diphenoxylate HCl/Atropine [Lomotil 2.5-0.025 mg Tablet] 2 tab PO TID PRN PRN Reason: Diarrhea Propranolol [Inderal] 10 mg PO DAILY Selenium Sulfide 1 applic TOPICAL DIRECTED PRN PRN Reason: dandruff SUMAtriptan succinate [Imitrex] 50 mg PO BID PRN PRN Reason: Migraine Headache Dextroamphetamine/Amphetamine [Adderall] 20 mg PO BID PRN PRN Reason: ADHD Omeprazole 20 mg PO BID Metoprolol Tartrate [Lopressor] 12.5 mg PO BID Cyclobenzaprine [Flexeril] 10 mg PO HS Ascorbic Acid [Vitamin C] 500 mg PO DAILY #30 tab Cholecalciferol (Vitamin D3) [Vitamin D3 (125 MCG = 5,000 IU)] 125 mcg PO DAILY 30 Days #30 cap metOLazone [Zaroxolyn] 5 mg PO DAILY lisinopriL [Zestril] 5 mg PO BID Discontinued Sodium Bicarbonate Tab 650 mg PO BID #60 tab Ciprofloxacin HCl [Cipro] 500 mg PO Q12HR Discharge Medication List Insulin Aspart (For Pump) [NovoLOG (For Pump)] 0.01 unit SQ-PUMP CONTINUOUS 11/08/17 [History] Metoprolol Tartrate [Lopressor] 12.5 mg PO BID 07/10/22 [History] Omeprazole 20 mg PO BID 07/10/22 [History] Atorvastatin [Lipitor] 10 mg PO HS 10/06/22 [History] Cyclobenzaprine [Flexeril] 10 mg PO HS 10/06/22 [History] LORazepam [Ativan] 0.5 mg PO HS PRN 10/06/22 [History] Diphenoxylate HCl/Atropine [Lomotil 2.5-0.025 mg Tablet] 2 tab PO TID PRN 12/17/22 [History] Propranolol [Inderal] 10 mg PO DAILY 12/17/22 [History] SUMAtriptan succinate [Imitrex] 50 mg PO BID PRN 12/17/22 [History] Selenium Sulfide 1 applic TOPICAL DIRECTED PRN 12/17/22 [History] Ascorbic Acid [Vitamin C] 500 mg PO DAILY #30 tab 12/20/22 [Rx] Cholecalciferol (Vitamin D3) [Vitamin D3 (125 MCG = 5,000 IU)] 125 mcg PO DAILY 30 Days #30 cap 12/22/22 [Rx] Dextroamphetamine/Amphetamine [Adderall] 20 mg PO BID PRN 01/05/23 [History] lisinopriL [Zestril] 5 mg PO BID 01/05/23 [History] metOLazone [Zaroxolyn] 5 mg PO DAILY 01/05/23 [History] Torsemide [Demadex] 40 mg PO DAILY #30 tab 01/09/23 [Rx] metOLazone [Zaroxolyn] 2.5 mg PO DAILY #30 tab 01/09/23 [Rx] Follow up Appointment(s)/Referral(s): Mohit Curran MD [Primary Care Provider] - 1-2 days Raffy Rodriguez DO [STAFF PHYSICIAN] - 1 Week Josias Cason MD [REFERRING] - 1 Week (elizabeth, for insulin pump management control) Ambulatory/Diagnostic Orders: Basic Metabolic Panel [LAB.AMB] Time Frame: 3 Days, Location: None Selected Activity/Diet/Wound Care/Special Instructions: Activity Limited until follow-up Continue metolazone as prescribed Continue torsemide and instructed to take an additional 20 mg of torsemide if noticing worsening edema or weight gain of more than 3 pounds within one week Follow-up with repeat labs in 2-3 days Continue low-salt strict consistent carb diet with 1500 mL fluid restriction Hold lisinopril if blood pressure systolic is less than 110/60 Avoid all nephrotoxic medication Strongly encourage follow-up with endocrine as soon as possible for tighter blood sugar control and insulin pump management Follow-up nephrology outpatient Discharge Disposition: HOME SELF-CARE
[2023-01-10] MEDS ORDERED: TORSEMIDE 20 MG TAB PO SCH (09:00)
== END 2023-01-09 13:55 | disposition home or self-care (01) | DRG 698 ==
LOC: EC 14:11 → 6NMEDSUR 18:38 → OBSVTOIN 01-07 11:25
PROVIDERS: ADMIT Hospitalist; ATTEND Hospitalist
DX: N04.9 Nephrotic syndrome with unspecified morphologic changes (principal); E10.10 Type 1 diabetes mellitus with ketoacidosis without coma; E87.1 Hypo-osmolality and hyponatremia; I12.9 Hypertensive chronic kidney disease with stage 1 through stage 4 chronic kidney disease, or unspecified chronic kidney disease; R60.0 Localized edema; E88.09 Other disorders of plasma-protein metabolism, not elsewhere classified; F32.A Depression, unspecified; F41.9 Anxiety disorder, unspecified; G43.909 Migraine, unspecified, not intractable, without status migrainosus; Z79.4 Long term (current) use of insulin; K44.9 Diaphragmatic hernia without obstruction or gangrene; D63.1 Anemia in chronic kidney disease; D50.9 Iron deficiency anemia, unspecified; F90.9 Attention-deficit hyperactivity disorder, unspecified type; J45.909 Unspecified asthma, uncomplicated; E83.39 Other disorders of phosphorus metabolism; E10.42 Type 1 diabetes mellitus with diabetic polyneuropathy; N18.31 Chronic kidney disease, stage 3a; E10.22 Type 1 diabetes mellitus with diabetic chronic kidney disease; Z79.890 Hormone replacement therapy; Z79.899 Other long term (current) drug therapy; Z88.1 Allergy status to other antibiotic agents; Z88.8 Allergy status to other drugs, medicaments and biological substances
CPT/HCPCS: 36415; 80048; 80053; 81001; 82570; 82728; 83036; 83540; 83550; 83735; 84156; 84484; 85025; 85610; 85730; 93005; 96374; 99285

== ENCOUNTER → 2023-01-22 | Outpatient (CLI) | payer BC ==
[2023-01-22 16:34] LABS: ALT 98 U/L (8-44); AST 56 U/L (13-35); Albumin 3.3 g/dL (3.8-4.9); Albumin/Globulin Ratio 1.18 Ratio (1.60-3.17); Alkaline Phosphatase 148 U/L (41-126); BUN/Creat Ratio 30.33 Ratio (12.00-20.00); Blood Urea Nitrogen 45.5 mg/dL (9.0-27.0); Calcium 9.2 mg/dL (8.7-10.3); Carbon Dioxide 24.5 mmol/L (21.6-31.8); Chloride 99 mmol/L (96-109); Chol/HDL Ratio 4.19 Ratio; Globulin 2.8 g/dL (1.6-3.3); Glucose 457 mg/dL (70-110); LDL Cholesterol,Calculated 163.4 mg/dL (0.0-131.0); Magnesium 2.2 mg/dL (1.5-2.4); Phosphorus 4.5 mg/dL (2.4-5.1); Potassium 5.3 mmol/L (3.5-5.5); Sodium 132 mmol/L (135-145); Total Bilirubin <0.2 mg/dL (0.3-1.2); Total Protein 6.1 g/dL (6.2-8.2)
== END | disposition home or self-care (01) ==
LOC: LABWHC1 09:15
PROVIDERS: ATTEND Internal Medicine Nephrology
DX: N04.9 Nephrotic syndrome with unspecified morphologic changes (principal); D64.9 Anemia, unspecified; N39.0 Urinary tract infection, site not specified; R80.9 Proteinuria, unspecified
CPT/HCPCS: 36415; 80053; 80061; 83036; 83735; 84100

== ENCOUNTER → 2023-01-29 | Outpatient (CLI) | payer BC ==
[2023-01-30 05:30] LABS: Total Volume 24 Hour,Urine 1525 mL
== END | disposition home or self-care (01) ==
LOC: LABWHC1 12:41
PROVIDERS: ATTEND Nurse Practitioner Acute Care
DX: D64.9 Anemia, unspecified (principal); N04.9 Nephrotic syndrome with unspecified morphologic changes; N39.0 Urinary tract infection, site not specified; R80.9 Proteinuria, unspecified
CPT/HCPCS: 81050; 84156

== ENCOUNTER 2023-06-05 17:24 | Inpatient (IN) | payer BC ==
--- NOTE | 2023-06-05 18:06 | ED ---
General Adult HPI - General Chief complaint: Extremity Problem,Nontraumatic Stated complaint: Swelling Feet/Legs Time Seen by Provider: 06/05/23 18:03 Source: patient, RN notes reviewed, old records reviewed Mode of arrival: ambulatory Limitations: no limitations - History of Present Illness Initial comments: 32-year-old female presenting to the ER with a chief complaint of bilateral leg swelling. She has a past medical history significant of nephrotic syndrome and follows up with Dr. Rodriguez. She reports for the past 3 to 4 days she has been having increase in swelling in bilateral lower extremities. She states her pants that she is currently wearing are typically loose around the ankles and calves and currently they are extremely tight. She also is reporting bilateral finger swelling. She was instructed by Dr. Rodriguez when she is retaining water to increase Lasix to 60 mg daily. She has been taking 60 mg of Lasix daily for the past 4 days without relief of edema. She also is reporting shortness of breath especially with exertion and is unable to lay flat due to shortness of breath. She reports dizziness/lightheadedness with deep breathing. Patient reports it takes her about a minute or 2 to regain breath after exertion. Denies any chest pain, fevers, chills, abdominal pain, urinary complaints. - Related Data Home Medications Medication Instructions Recorded Confirmed Insulin Aspart (For Pump) [NovoLOG 0.01 unit SQ-PUMP CONTINUOUS 11/08/17 06/05/23 (For Pump)] Metoprolol Tartrate [Lopressor] 12.5 mg PO BID 07/10/22 06/05/23 Omeprazole 20 mg PO BID 07/10/22 06/05/23 Cyclobenzaprine [Flexeril] 10 mg PO HS 10/06/22 06/05/23 LORazepam [Ativan] 0.5 mg PO DAILY PRN 10/06/22 06/05/23 Propranolol [Inderal] 10 mg PO DAILY 12/17/22 06/05/23 SUMAtriptan succinate [Imitrex] 50 mg PO BID PRN 12/17/22 06/05/23 Dextroamphetamine/Amphetamine 20 mg PO BID@0700,1300 01/05/23 06/05/23 [Adderall] lisinopriL [Zestril] 10 mg PO DAILY 01/05/23 06/05/23 Torsemide [Demadex] 20 mg PO BID 06/05/23 06/05/23 Allergies Allergy/AdvReac Type Severity Reaction Status Date / Time cephalexin [From Keflex] Allergy Swelling Verified 06/05/23 21:21 (tongue) midazolam [From Versed] AdvReac very Verified 06/05/23 21:21 anxious feeling Review of Systems ROS Statement: Those systems with pertinent positive or pertinent negative responses have been documented in the HPI. ROS Other: All systems not noted in ROS Statement are negative. Past Medical History Past Medical History: Asthma, Diabetes Mellitus, GERD/Reflux, Hypertension, Renal Disease Additional Past Medical History / Comment(s): hx. hiatal hernia, diabetic- TYPE 1 chronic kidney disease-protein in urine , albumin, MIGRAINE HEADACHES, CHILDHOOD ASTHMA, neuropathy in feet and legs, diabetic neuropathy History of Any Multi-Drug Resistant Organisms: MRSA Date of last positivie culture/infection: 2009 MDRO Source:: abdomen left side Past Surgical History: Section Additional Past Surgical History / Comment(s): surgery on cervix for abnormal cells, surgery groin area for grown hairs. bilateral cataract surgery with implants, Past Anesthesia/Blood Transfusion Reactions: Motion Sickness Additional Past Anesthesia/Blood Transfusion Reaction / Comment(s): Pt has clausterphobia. Past Psychological History: ADD/ADHD, Anxiety, Depression Smoking Status: Former smoker Past Alcohol Use History: Occasional Past Drug Use History: None Reported - Past Family History Mother Family Medical History: No Reported History, Thyroid Disorder Additional Family Medical History / Comment(s): gestational diabetes Father Family Medical History: No Reported History Additional Family Medical History / Comment(s): chrons disease General Exam Limitations: no limitations General appearance: alert, in no apparent distress Head exam: Present: atraumatic, normocephalic, normal inspection Eye exam: Present: normal appearance, PERRL, EOMI. Absent: scleral icterus, conjunctival injection, periorbital swelling Respiratory exam: Present: normal lung sounds bilaterally. Absent: respiratory distress, wheezes, rales, rhonchi, stridor Cardiovascular Exam: Present: normal rhythm, tachycardia, normal heart sounds Extremities exam: Present: pedal edema (1-2+ pitting tibial edema bilaterally. Bilateral calf tightness) Neurological exam: Present: alert, oriented X3, CN II-XII intact Skin exam: Present: warm, dry, intact, normal color. Absent: rash Course Vital Signs 06/05/23 06/05/23 17:36 21:42 Temperature 98.7 F Pulse Rate 110 H 92 Respiratory 20 18 Rate Blood Pressure 146/86 135/76 O2 Sat by Pulse 99 97 Oximetry - Reevaluation(s) Reevaluation #1: 06/05/23 20:[address] Rodriguez accepts medical consultation. Reevaluation #2: 06/05/23 21:[address] Hampton, [facility], who accepts medical admission. Medical Decision Making - Medical Decision Making Was pt. sent in by a medical professional or institution (, PA, ROAD GRADER OPERATOR, urgent care, hospital, or shelter...) When possible be specific @ -Patient sent by Dr. Rodriguez for evaluation of bilateral lower extremity edema. Did you speak to anyone other than the patient for history (EMS, parent, family, police, friend...)? What history was obtained from this source @ -No Did you review nursing and triage notes (agree or disagree)? Why? @ -I reviewed and agree with nursing and triage notes Were old charts reviewed (outside hosp., previous admission, EMS record, old EKG, old radiological studies, urgent care reports/EKG's, shelter records)? Report findings @ -No old charts were reviewed Differential Diagnosis (chest pain, altered mental status, abdominal pain women, abdominal pain men, vaginal bleeding, weakness, fever, dyspnea, syncope, headache, dizziness, GI bleed, back pain, seizure, CVA, palpatations, mental health, musculoskeletal)? @ -Differential Dyspnea:Coronary syndrome, arrhythmia, tamponade, asthma, COPD, pulmonary embolism, pneumonia, pneumothorax, pulmonary effusion, anaphylaxis, diabetic ketoacidosis, flailed chest, pulmonary contusion, diaphragmatic rupture, anemia, neuromuscular, this is not meant to be an all-inclusive list. EKG interpreted by me (3pts min.). @ -As above X-rays interpreted by me (1pt min.). @ -Chest x-ray interpreted by me negative for acute cardiopulmonary process. CT interpreted by me (1pt min.). @ -None done U/S interpreted by me (1pt. min.). @ -None done What testing was considered but not performed or refused? (CT, X-rays, U/S, labs)? Why? @ -None What meds were considered but not given or refused? Why? @ -None Did you discuss the management of the patient with other professionals (professionals i.e. , PA, ROAD GRADER OPERATOR, lab, RT, psych nurse, social services assistant, auto roller, teacher, chief customer officer, director case)? Give summary @ -Case discussed with Dr. Rodriguez who accepts medical consultation. He also advised on 40 mg IV Lasix twice daily. I also spoke with Dr. Hampton. who accepts medical admission. Was smoking cessation discussed for >3mins.? @ -No Was critical care preformed (if so, how long)? @ -No Were there social determinants of health that impacted care today? How? (Homelessness, low income, unemployed, alcoholism, drug addiction, transportation, low edu. Level, literacy, decrease access to med. care, fdc, rehab)? @ -No Was there de-escalation of care discussed even if they declined (Discuss DNR or withdrawal of care, Hospice)? DNR status @ -No What co-morbidities impacted this encounter? (DM, HTN, Smoking, COPD, CAD, Cancer, CVA, ARF, Chemo, Hep., AIDS, mental health diagnosis, sleep apnea, morbid obesity)? @ -Nephrotic syndrome, DM Was patient admitted / discharged? Hospital course, mention meds given and route , prescriptions, significant lab abnormalities, going to OR and other pertinent info. @ -Admitted. 32-year-old female presented to the ER with a chief complaint of bilateral lower extremity edema. History and physical exam completed. Patient tachycardic at 110 on arrival. Vitals otherwise stable. Patient no signs of acute distress and nontoxic-appearing. Bilateral 1+ pretibial pitting edema. Bilateral lower extremities neurovascular intact. Mild edema to bilateral fingers. Lung sounds clear to auscultation bilaterally. Labs obtained significant for white blood cell count 15.4, hyponatremic 133, HANS (BUN 46, creatinine 1.8), hypoalbuminemia at 2.5. Urinalysis significant for 3+ protein. Chest x-ray interpreted by me negative for acute cardiopulmonary process. EKG showing sinus tachycardia with no acute ST segment or T wave abnormalities. Admission considered due to need of IV Lasix. Case discussed with Dr. Rdoriguez who accepts consultation. Dr. Hampton, [facility], accepts medical admission. Patient started on IV Lasix. Results discussed with patient, all questions answered. P atient agreeable for admission. Case discussed with ED attending, Dr. Moore. Undiagnosed new problem with uncertain prognosis? @ -No Drug Therapy requiring intensive monitoring for toxicity (Heparin, Nitro, Insulin, Cardizem)? @ -No Were any procedures done? @ -No Diagnosis/symptom? @ -Bilateral lower extremity edema/nephrotic syndrome/tachycardia Acute, or Chronic, or Acute on Chronic? @ -Acute Uncomplicated (without systemic symptoms) or Complicated (systemic symptoms)? @ -Complicated Side effects of treatment? @ -No Exacerbation, Progression, or Severe Exacerbation? @ -No Poses a threat to life or bodily function? How? (Chest pain, USA, IA, pneumonia, PE, COPD, DKA, ARF, appy, cholecystitis, CVA, Diverticulitis, Homicidal, Suicidal, threat to staff... and all critical care pts) @ -No - Lab Data Result diagrams: 06/05/23 18:47 06/05/23 18:47 Lab Results 06/05/23 06/05/23 06/05/23 Range/Units 18:47 18:47 18:47 WBC 15.4 H (3.8-10.6) k/uL RBC 3.83 (3.80-5.40) m/uL Hgb 11.4 (11.4-16.0) gm/dL Hct 34.8 (34.0-46.0) % MCV 91.0 (80.0-100.0) fL MCH 29.9 (25.0-35.0) pg MCHC 32.8 (31.0-37.0) g/dL RDW 14.2 (11.5-15.5) % Plt Count 305 (150-450) k/uL MPV 7.6 Neutrophils % 69 % Lymphocytes % 24 % Monocytes % 5 % Eosinophils % 1 % Basophils % 0 % Neutrophils # 10.6 H (1.3-7.7) k/uL Lymphocytes # 3.7 (1.0-4.8) k/uL Monocytes # 0.7 (0-1.0) k/uL Eosinophils # 0.1 (0-0.7) k/uL Basophils # 0.1 (0-0.2) k/uL Sodium 133 L (137-145) mmol/L Potassium 4.5 (3.5-5.1) mmol/L Chloride 110 H (98-107) mmol/L Carbon Dioxide 22 (22-30) mmol/L Anion Gap 1 mmol/L BUN 46 H (7-17) mg/dL Creatinine 1.81 H (0.52-1.04) mg/dL Est GFR (CKD-EPI)AfAm 42 (>60 ml/min/1.73 sqM) Est GFR (CKD-EPI)NonAf 36 (>60 ml/min/1.73 sqM) Glucose 74 (74-99) mg/dL Calcium 8.4 (8.4-10.2) mg/dL Total Bilirubin 0.3 (0.2-1.3) mg/dL AST 38 H (14-36) U/L ALT 27 (4-34) U/L Alkaline Phosphatase 105 (38-126) U/L Total Protein 5.5 L (6.3-8.2) g/dL Albumin 2.5 L (3.5-5.0) g/dL Urine Color Colorless Urine Appearance Clear (Clear) Urine pH 6.0 (5.0-8.0) Ur Specific [place] 1.015 (1.001-1.035) Urine Protein 3+ H (Negative) Urine Glucose (UA) 2+ H (Negative) Urine Ketones Negative (Negative) Urine Blood Moderate H (Negative) Urine Nitrite Negative (Negative) Urine Bilirubin Negative (Negative) Urine Urobilinogen <2.0 (<2.0) mg/dL Ur Leukocyte Esterase Negative (Negative) Urine RBC 1 (0-5) /hpf Urine WBC 3 (0-5) /hpf Ur Squamous Epith Cells <1 (0-4) /hpf Urine Bacteria Rare H (None) /hpf Hyaline Casts 7 H (0-2) /lpf Urine Mucus Rare H (None) /hpf Urine HCG, Qual (Not Detectd) 06/05/23 Range/Units 18:47 WBC (3.8-10.6) k/uL RBC (3.80-5.40) m/uL Hgb (11.4-16.0) gm/dL Hct (34.0-46.0) % MCV (80.0-100.0) fL MCH (25.0-35.0) pg MCHC (31.0-37.0) g/dL RDW (11.5-15.5) % Plt Count (150-450) k/uL MPV Neutrophils % % Lymphocytes % % Monocytes % % Eosinophils % % Basophils % % Neutrophils # (1.3-7.7) k/uL Lymphocytes # (1.0-4.8) k/uL Monocytes # (0-1.0) k/uL Eosinophils # (0-0.7) k/uL Basophils # (0-0.2) k/uL Sodium (137-145) mmol/L Potassium (3.5-5.1) mmol/L Chloride (98-107) mmol/L Carbon Dioxide (22-30) mmol/L Anion Gap mmol/L BUN (7-17) mg/dL Creatinine (0.52-1.04) mg/dL Est GFR (CKD-EPI)AfAm (>60 ml/min/1.73 sqM) Est GFR (CKD-EPI)NonAf (>60 ml/min/1.73 sqM) Glucose (74-99) mg/dL Calcium (8.4-10.2) mg/dL Total Bilirubin (0.2-1.3) mg/dL AST (14-36) U/L ALT (4-34) U/L Alkaline Phosphatase (38-126) U/L Total Protein (6.3-8.2) g/dL Albumin (3.5-5.0) g/dL Urine Color Urine Appearance (Clear) Urine pH (5.0-8.0) Ur Specific [place] (1.001-1.035) Urine Protein (Negative) Urine Glucose (UA) (Negative) Urine Ketones (Negative) Urine Blood (Negative) Urine Nitrite (Negative) Urine Bilirubin (Negative) Urine Urobilinogen (<2.0) mg/dL Ur Leukocyte Esterase (Negative) Urine RBC (0-5) /hpf Urine WBC (0-5) /hpf Ur Squamous Epith Cells (0-4) /hpf Urine Bacteria (None) /hpf Hyaline Casts (0-2) /lpf Urine Mucus (None) /hpf Urine HCG, Qual Not Detected (Not Detectd) - EKG Data -: EKG Interpreted by Me EKG Comments: EKG taken at 18: 27 showing a sinus tachycardia with no acute ST segment or T wave abnormalities. Ventricular rate 103, MT interval 145, QRS duration 107, QT/QTc 352/412. - Radiology Data Radiology results: report reviewed, image reviewed Disposition Clinical Impression: Nephrotic syndrome, Bilateral lower extremity edema, Tachycardia Disposition: ADMITTED IP TO THIS HOSP Condition: Good Time of Disposition: 20:23
[2023-06-05 18:52] LABS: Basophils # (A) 0.1 k/uL (0-0.2); Basophils % (A) 0 %; Eosinophils # (A) 0.1 k/uL (0-0.7); Eosinophils % (A) 1 %; HCT 34.8 % (34.0-46.0); HGB 11.4 gm/dL (11.4-16.0); Lymphocytes # (A) 3.7 k/uL (1.0-4.8); Lymphocytes % (A) 24 %; MCH 29.9 pg (25.0-35.0); MCHC 32.8 g/dL (31.0-37.0); Mean Platelet Volume 7.6; Monocytes # (A) 0.7 k/uL (0-1.0); Monocytes % (A) 5 %; Neutrophils # (A) 10.6 k/uL (1.3-7.7); Neutrophils % (A) 69 %; Platelet Count 305 k/uL (150-450); RBC 3.83 m/uL (3.80-5.40); RDW 14.2 % (11.5-15.5); WBC 15.4 k/uL (3.8-10.6)
[2023-06-05 19:06] LABS: ALT 27 U/L (4-34); AST 38 U/L (14-36); African American GFR (CKD) 42 (>60 ml/min/1.73 sqM); Albumin 2.5 g/dL (3.5-5.0); Alkaline Phosphatase 105 U/L (38-126); Anion Gap 1 mmol/L; Blood Urea Nitrogen 46 mg/dL (7-17); Calcium 8.4 mg/dL (8.4-10.2); Carbon Dioxide 22 mmol/L (22-30); Chloride 110 mmol/L (98-107); Glucose 74 mg/dL (74-99); Non-African American GFR(CKD) 36 (>60 ml/min/1.73 sqM); Potassium 4.5 mmol/L (3.5-5.1); Sodium 133 mmol/L (137-145); Total Bilirubin 0.3 mg/dL (0.2-1.3); Total Protein 5.5 g/dL (6.3-8.2)
[2023-06-05 19:10] LABS: Appearance,Urine Clear (Clear); Bacteria,Urine Rare /hpf; Bilirubin,Urine Negative (Negative); Blood,Urine Moderate (Negative); Color,Urine Colorless; Glucose,Urine (UA) 2+ (Negative); Hyaline Casts,Urine 7 /lpf (0-2); Ketones,Urine Negative (Negative); Leukocyte Esterase,Urine Negative (Negative); Mucus,Urine Rare /hpf; Nitrite,Urine Negative (Negative); Protein,Urine 3+ (Negative); RBC,Urine 1 /hpf (0-5); Specific Gravity,Urine 1.015 (1.001-1.035); Squamous Epithelial Cell,Urine <1 /hpf (0-4); Urobilinogen,Urine <2.0 mg/dL (<2.0); WBC,Urine 3 /hpf (0-5)
--- NOTE | 2023-06-05 20:15 | XR ---
EXAMINATION TYPE: XR chest 2V DATE OF EXAM: 06/05/2023 7:04 PM CLINICAL INDICATION:Female, 32 years old with history of fluid retention; [facility] COMPARISON: 12/17/2022 TECHNIQUE: XR chest 2V. Frontal and lateral views of the chest.. FINDINGS: Lines/Tubes/Devices: No indwelling lines are seen. Heart/mediastinum: Heart size is normal. Mediastinum appears normal. [place] appear within normal limi ts. Pulmonary vascularity: Not increased, Lungs/Pleura: There is no evidence of pleural effusion, focal consolidation, or pneumothorax. Mild st randing of the right lung base likely subsegmental atelectasis or scar. Musculoskeletal: No acute osseous abnormality demonstrated in the limits of the exam. Mild chronic d egenerative changes of the spine with slight exaggerated kyphosis. Other findings: None. IMPRESSION: No acute cardiopulmonary abnormality.
[2023-06-05] MEDS ORDERED: NALOXONE 0.4 MG/ML 1 ML VIAL IV PRN (20:18)
[2023-06-05] MEDS: FUROSEMIDE 10 MG/ML 4 ML VIAL IV STA (20:24)
[2023-06-05 20:53] LABS: Glucose,Whole Blood 115 mg/dL (70-110)
[2023-06-05 21:15] LABS: Magnesium 2.1 mg/dL (1.6-2.3)
[2023-06-05] MEDS ORDERED: hydrALAZINE HCL 20 MG/ML 1 ML VIAL IVP PRN (23:12)
[2023-06-05] MEDS: METOPROLOL TARTRATE 12.5 MG TAB PO SCH (23:35)
[2023-06-06 05:53] LABS: Glucose,Whole Blood 293 mg/dL (70-110)
[2023-06-06] MEDS: HEPARIN SODIUM,PORCINE 5,000 UNIT/ML 1 ML VIAL SQ SCH (08:26)
[2023-06-06] MEDS: FAMOTIDINE 20 MG/2 ML VIAL IV SCH (08:26)
[2023-06-06] MEDS: ACETAMINOPHEN TAB 325 MG TAB PO PRN (08:35)
[2023-06-06] MEDS ORDERED: FAMOTIDINE 20 MG/2 ML VIAL IV SCH (09:00)
--- NOTE | 2023-06-06 10:05 | P.NPCON ---
History of Present Illness - Reason for Consult chronic renal failure - History of Present Illness Reason for consultation: Chronic kidney disease and volume overload History of present illness: Patient is a 32-year-old female seen in new consultation for chronic kidney disease. Patient has chronic kidney disease stage IIIb with baseline creatinine 1.6-1.8 secondary to biopsy-proven diabetic kidney disease. Patient was diagnosed with type 1 diabetes at the age of 16. Patient states her blood sugars have been quite elevated and last A1c was near 13%. Patient states she has an insulin pump but does not give herself the bolus insulin regularly. Patient states she does this so she can lose some weight. Patient does take torsemide 20 mg twice daily at home and has been taking a total of 60 mg the last few days. Patient states edema has been getting worse over the last few days despite taking the extra dose of Lasix. She has been voiding. Denies gross hematuria or dysuria. Denies excessive fluid or salt intake. No chest pain or shortness of breath. No history of coronary artery disease. No fever. Does develop chills at night at times. Vital signs are stable. General: No acute distress. HEENT: Head exam is unremarkable. Orbital edema noted. LUNGS: No audible rhonchi or wheezes. HEART: Rate and Rhythm are regular. ABDOMEN: Nontender. EXTREMITITES: 2+ edema. Past Medical History Past Medical History: Asthma, Diabetes Mellitus, GERD/Reflux, Hypertension, Renal Disease Additional Past Medical History / Comment(s): hx. hiatal hernia, diabetic- TYPE 1 chronic kidney disease-protein in urine , albumin, MIGRAINE HEADACHES, CHILDHOOD ASTHMA, neuropathy in feet and legs, diabetic neuropathy History of Any Multi-Drug Resistant Organisms: MRSA Date of last positivie culture/infection: 2009 MDRO Source:: abdomen left side Past Surgical History: Section Additional Past Surgical History / Comment(s): surgery on cervix for abnormal cells, surgery groin area for grown hairs. bilateral cataract surgery with implants, Past Anesthesia/Blood Transfusion Reactions: Motion Sickness Additional Past Anesthesia/Blood Transfusion Reaction / Comment(s): Pt has clausterphobia. Past Psychological History: ADD/ADHD, Anxiety, Depression Additional Psychological History / Comment(s): Pt resides with her parents and her 2 children ages 7 and 9 yrs. She is independent. She states her depression is stable at this time but states yesterday, 06/17/21, she did feet more depressed and had thoughts that she would be fine if she went to sleep and did not wake up. Pt denies suicidal thoughts/plans. Smoking Status: Former smoker Past Alcohol Use History: Occasional Additional Past Alcohol Use History / Comment(s): Pt started smoking in 2007 and quit in 2019 Past Drug Use History: None Reported Additional Drug Use History / Comment(s): edibles occasional- instructed to hold 24 hours prior to procedure. - Past Family History Mother Family Medical History: No Reported History, Thyroid Disorder Additional Family Medical History / Comment(s): gestational diabetes Father Family Medical History: No Reported History Additional Family Medical History / Comment(s): chrons disease Medications and Allergies Home Medications Medication Instructions Recorded Confirmed Type Insulin Aspart (For Pump) [NovoLOG 0.01 unit SQ-PUMP CONTINUOUS 11/08/17 06/05/23 History (For Pump)] Metoprolol Tartrate [Lopressor] 12.5 mg PO BID 07/10/22 06/05/23 History Omeprazole 20 mg PO BID 07/10/22 06/05/23 History Cyclobenzaprine [Flexeril] 10 mg PO HS 10/06/22 06/05/23 History LORazepam [Ativan] 0.5 mg PO DAILY PRN 10/06/22 06/05/23 History Propranolol [Inderal] 10 mg PO DAILY 12/17/22 06/05/23 History SUMAtriptan succinate [Imitrex] 50 mg PO BID PRN 12/17/22 06/05/23 History Dextroamphetamine/Amphetamine 20 mg PO BID@0700,1300 01/05/23 06/05/23 History [Adderall] lisinopriL [Zestril] 10 mg PO DAILY 01/05/23 06/05/23 History Torsemide [Demadex] 20 mg PO BID 06/05/23 06/05/23 History Allergies Allergy/AdvReac Type Severity Reaction Status Date / Time cephalexin [From Keflex] Allergy Swelling Verified 06/05/23 21:21 (tongue) midazolam [From Versed] AdvReac very Verified 06/05/23 21:21 anxious feeling Physical Exam Vitals: Vital Signs Temp Pulse Pulse Resp BP BP Pulse Ox 06/06/23 07:30 86 16 06/06/23 07:15 97.5 F L 86 16 137/86 99 06/06/23 00:28 98 F 103 H 18 147/91 99 06/05/23 22:19 98.1 F 114 H 21 173/89 99 06/05/23 21:42 92 18 135/76 97 06/05/23 17:36 98.7 F 110 H 20 146/86 99 Intake and Output 06/05/23 06/06/23 06/06/23 22:59 06:59 14:59 Other: Voiding Method Toilet Toilet # Voids 2 Weight 92.986 kg Results - Lab Results Most recent lab results Calcium 8.4 mg/dL (8.4-10.2) 06/05/23 18:47 Magnesium 2.1 mg/dL (1.6-2.3) 06/05/23 20:50 06/05/23 18:47 06/05/23 18:47 Assessment and Plan Plan: Assessment: 1. Chronic kidney disease stage IIIb secondary to biopsy-proven diabetic kidney disease. 2. Volume overload due to nephrotic syndrome. 3. Type 1 diabetes mellitus, uncontrolled. 4. Hypertension with chronic kidney disease. Plan: Increase Lasix to 60 mg IV twice daily. Add metolazone 5 mg once daily. Low-salt diet and 1500 cc fluid restriction. Resume lisinopril 10 mg once daily. Continue to monitor renal function and urine output. Thank you for the consultation. I will continue to follow the patient with you during her hospital stay.
[2023-06-06] MEDS: metOLazone 5 MG TAB PO SCH (10:40)
[2023-06-06] MEDS: lisinopriL 10 MG TAB PO SCH (10:40)
[2023-06-06 11:12] LABS: Glucose,Whole Blood 179 mg/dL (70-110)
[2023-06-06 12:38] VITALS: BMI 31.1
[2023-06-06] MEDS ORDERED: INSULIN ASPART (NovoLOG) 100 UNIT/ML VIAL SQ PRN (13:07)
[2023-06-06] MEDS ORDERED: INSPUCOR MISCELLANE PRN (13:07)
[2023-06-06] MEDS ORDERED: INSULIN PUMP BASAL RATES 1 EACH MISC MISCELLANE PRN (13:07)
[2023-06-06] MEDS: Insulin Aspart (For Pump) 100 UNIT/ML VIAL SQ-PUMP SCH (13:51)
[2023-06-06] MEDS: NON FORMULARY DRUG (Dextroamphetamine/Amphetamine [Adderall] 20 MG Tablet) PO SCH (13:52)
[2023-06-06 16:26] LABS: Glucose,Whole Blood 187 mg/dL (70-110)
[2023-06-06] MEDS: PANTOPRAZOLE 40 MG TABLET PO SCH (16:44)
--- NOTE | 2023-06-06 18:04 | P.HPIM ---
History of Present Illness H&P Date: 06/06/23 Chief Complaint: Generalized swelling 32-year-old female presenting to the ER with a chief complaint of bilateral leg swelling. She has a past medical history significant of nephrotic syndrome and follows up with Dr. Rodriguez. She reports for the past 3 to 4 days she has been having increase in swelling in bilateral lower extremities. She states her pants that she is currently wearing are typically loose around the ankles and calves and currently they are extremely tight. She also is reporting bilateral finger swelling. She was instructed by Dr. Rodriguez when she is retaining water to increase Lasix to 60 mg daily. She has been taking 60 mg of Lasix daily for the past 4 days without relief of edema. She also is reporting shortness of breath especially with exertion and is unable to lay flat due to shortness of breath. She reports dizziness/lightheadedness with deep breathing. Patient reports it takes her about a minute or 2 to regain breath after exertion. Denies any chest pain, fevers, chills, abdominal pain, urinary complaints. Blood work completed in ED reveals a WBC of 15.4, hemoglobin of 11.4 and platelet count of 305, sodium 133, potassium 4.5, BUNs/creatinine 46/1.81 UA is positive for moderate amount of blood, RBCs, rare bacteria Review of Systems REVIEW OF SYSTEMS: CONSTITUTIONAL: No fever, no malaise, no fatigue. HEENT: No recent visual problems or hearing problems. Denied any sore throat. CARDIOVASCULAR: No chest pain, orthopnea, PND, no palpitations, no syncope. PULMONARY: No shortness of breath, no cough, no hemoptysis. GASTROINTESTINAL: No diarrhea, no nausea, no vomiting, no abdominal pain. NEUROLOGICAL: No headaches, no weakness, no numbness. HEMATOLOGICAL: Denies any bleeding or petechiae. GENITOURINARY: Denies any burning micturition, frequency, or urgency. MUSCULOSKELETAL/RHEUMATOLOGICAL: Denies any joint pain, swelling, or any muscle pain. ENDOCRINE: Denies any polyuria or polydipsia. The rest of the 14-point review of systems is negative. Past Medical History Past Medical History: Asthma, Diabetes Mellitus, GERD/Reflux, Hypertension, Renal Disease Additional Past Medical History / Comment(s): hx. hiatal hernia, diabetic- TYPE 1 chronic kidney disease-protein in urine , albumin, MIGRAINE HEADACHES, CHI LDHOOD ASTHMA, neuropathy in feet and legs, diabetic neuropathy History of Any Multi-Drug Resistant Organisms: MRSA Date of last positivie culture/infection: 2009 MDRO Source:: abdomen left side Past Surgical History: Section Additional Past Surgical History / Comment(s): surgery on cervix for abnormal cells, surgery groin area for grown hairs. bilateral cataract surgery with implants, Past Anesthesia/Blood Transfusion Reactions: Motion Sickness Additional Past Anesthesia/Blood Transfusion Reaction / Comment(s): Pt has clausterphobia. Past Psychological History: ADD/ADHD, Anxiety, Depression Additional Psychological History / Comment(s): Pt resides with her parents and her 2 children ages 7 and 9 yrs. She is independent. She states her depression is stable at this time but states yesterday, 06/17/21, she did feet more depressed and had thoughts that she would be fine if she went to sleep and did not wake up. Pt denies suicidal thoughts/plans. Smoking Status: Former smoker Past Alcohol Use History: Occasional Additional Past Alcohol Use History / Comment(s): Pt started smoking in 2007 and quit in 2019 Past Drug Use History: None Reported Additional Drug Use History / Comment(s): edibles occasional- instructed to hold 24 hours prior to procedure. - Past Family History Mother Family Medical History: No Reported History, Thyroid Disorder Additional Family Medical History / Comment(s): gestational diabetes Father Family Medical History: No Reported History Additional Family Medical History / Comment(s): chrons disease Medications and Allergies Home Medications Medication Instructions Recorded Confirmed Type Insulin Aspart (For Pump) [NovoLOG 0.01 unit SQ-PUMP CONTINUOUS 11/08/17 06/05/23 History (For Pump)] Metoprolol Tartrate [Lopressor] 12.5 mg PO BID 07/10/22 06/05/23 History Omeprazole 20 mg PO BID 07/10/22 06/05/23 History Cyclobenzaprine [Flexeril] 10 mg PO HS 10/06/22 06/05/23 History LORazepam [Ativan] 0.5 mg PO DAILY PRN 10/06/22 06/05/23 History Propranolol [Inderal] 10 mg PO DAILY 12/17/22 06/05/23 History SUMAtriptan succinate [Imitrex] 50 mg PO BID PRN 12/17/22 06/05/23 History Dextroamphetamine/Amphetamine 20 mg PO BID@0700,1300 01/05/23 06/05/23 History [Adderall] lisinopriL [Zestril] 10 mg PO DAILY 01/05/23 06/05/23 History Torsemide [Demadex] 20 mg PO BID 06/05/23 06/05/23 History Allergies Allergy/AdvReac Type Severity Reaction Status Date / Time cephalexin [From Keflex] Allergy Swelling Verified 06/05/23 21:21 (tongue) midazolam [From Versed] AdvReac very Verified 06/05/23 21:21 anxious feeling Physical Exam Vitals: Vital Signs Temp Pulse Pulse Resp BP BP Pulse Ox 06/06/23 07:30 86 16 06/06/23 07:15 97.5 F L 86 16 137/86 99 06/06/23 00:28 98 F 103 H 18 147/91 99 06/05/23 22:19 98.1 F 114 H 21 173/89 99 06/05/23 21:42 92 18 135/76 97 06/05/23 17:36 98.7 F 110 H 20 146/86 99 Intake and Output 06/05/23 06/06/23 06/06/23 22:59 06:59 14:59 Other: Voiding Method Toilet Toilet # Voids 2 Weight 92.986 kg General appearance: alert, in no apparent distress Head exam: Present: atraumatic, normocephalic, normal inspection Eye exam: Present: normal appearance, PERRL, EOMI. Absent: scleral icterus, conjunctival injection, periorbital swelling Respiratory exam: Present: normal lung sounds bilaterally. Absent: respiratory distress, wheezes, rales, rhonchi, stridor Cardiovascular Exam: Present: normal rhythm, tachycardia, normal heart sounds Extremities exam: Present: pedal edema (1-2+ pitting tibial edema bilaterally. Bilateral calf tightness) Neurological exam: Present: alert, oriented X3, CN II-XII intact Skin exam: Present: warm, dry, intact, normal color. Absent: rash Results CBC & Chem 7: 06/05/23 18:47 06/05/23 18:47 Labs: Abnormal Lab Results - Last 24 Hours (Table) 06/05/23 06/05/23 06/05/23 Range/Units 18:47 18:47 18:47 WBC 15.4 H (3.8-10.6) k/uL Neutrophils # 10.6 H (1.3-7.7) k/uL Sodium 133 L (137-145) mmol/L Chloride 110 H (98-107) mmol/L BUN 46 H (7-17) mg/dL Creatinine 1.81 H (0.52-1.04) mg/dL POC Glucose (mg/dL) (70-110) mg/dL AST 38 H (14-36) U/L Total Protein 5.5 L (6.3-8.2) g/dL Albumin 2.5 L (3.5-5.0) g/dL Urine Protein 3+ H (Negative) Urine Glucose (UA) 2+ H (Negative) Urine Blood Moderate H (Negative) Urine Bacteria Rare H (None) /hpf Hyaline Casts 7 H (0-2) /lpf Urine Mucus Rare H (None) /hpf 06/05/23 06/06/23 06/06/23 Range/Units 20:51 05:51 11:11 WBC (3.8-10.6) k/uL Neutrophils # (1.3-7.7) k/uL Sodium (137-145) mmol/L Chloride (98-107) mmol/L BUN (7-17) mg/dL Creatinine (0.52-1.04) mg/dL POC Glucose (mg/dL) 115 H 293 H 179 H (70-110) mg/dL AST (14-36) U/L Total Protein (6.3-8.2) g/dL Albumin (3.5-5.0) g/dL Urine Protein (Negative) Urine Glucose (UA) (Negative) Urine Blood (Negative) Urine Bacteria (None) /hpf Hyaline Casts (0-2) /lpf Urine Mucus (None) /hpf Thrombosis Risk Factor Assmnt - Choose All That Apply Any of the Below Risk Factors Present?: Yes Each Factor Represents 1 point: Obesity (BMI >25), Swollen legs (current) Other Risk Factors: No Other congenital or acquired thrombophilia - If yes, enter type in comment: No Thrombosis Risk Factor Assessment Total Risk Factor Score: 2 Thrombosis Risk Factor Assessment Level: Low Risk Assessment and Plan Assessment: 1. Generalized anasarca/nephrotic syndrome -- Patient is in volume overload due to nephrotic syndrome; instructed by primary filtration plant mechanic to increase Lasix up to 60 mg daily which was ineffective -- Patient has been evaluated by nephrology and is placed on Lasix 60 mg IV every 12 hours -- Currently on Zaroxolyn 5 mg daily -Patient to resume low-salt diet and 1500 cc fluid restriction 2. Sinus tachycardia; likely related to fluid overload and dyspnea; we will monitor and further workup if persists 3. Chronic kidney disease stage III; renal function at baseline; we will monitor strict MIKAYLA's, daily weights, renal function electrolytes; avoid n ephrotoxins and hypotension 4. Leukocytosis; possible UTI; patient is afebrile; we will monitor CBC and make further recommendations; monitor of antibiotics 5. Hypertension; lisinopril 10 mg daily; metoprolol 25 mg twice daily 6. Diabetes mellitus type 1; uncontrolled; patient has an insulin pump in place; monitor Accu-Cheks before every meal and at bedtime with insulin sliding scale 7. ADHD/anxiety/depression; we will continue with home dose of Adderall, Ativan 0.5 mg daily as needed DVT prophylaxis; SCDs CODE STATUS; full code
[2023-06-06 20:54] LABS: Glucose,Whole Blood 386 mg/dL (70-110)
[2023-06-06] MEDS ORDERED: FUROSEMIDE 10 MG/ML 4 ML VIAL IV SCH (21:00)
[2023-06-06] MEDS: CYCLOBENZAPRINE 10 MG TAB PO SCH (22:38)
[2023-06-06] MEDS: FUROSEMIDE 10 MG/ML 10 ML VIAL IV SCH (22:39)
[2023-06-07] MEDS: LORazepam 0.5 MG TAB PO PRN (00:03)
[2023-06-07 01:26] LABS: Glucose,Whole Blood 273 mg/dL (70-110)
[2023-06-07 05:58] LABS: Glucose,Whole Blood 265 mg/dL (70-110)
[2023-06-07 07:59] LABS: Basophils % (A) 1 %; Eosinophils # (A) 0.1 k/uL (0-0.7); Eosinophils % (A) 1 %; HCT 32.4 % (34.0-46.0); HGB 10.2 gm/dL (11.4-16.0); Lymphocytes # (A) 2.9 k/uL (1.0-4.8); Lymphocytes % (A) 39 %; MCH 29.1 pg (25.0-35.0); MCHC 31.6 g/dL (31.0-37.0); MCV 92.1 fL (80.0-100.0); Mean Platelet Volume 7.3; Monocytes # (A) 0.4 k/uL (0-1.0); Monocytes % (A) 5 %; Neutrophils # (A) 3.9 k/uL (1.3-7.7); Neutrophils % (A) 52 %; Platelet Count 299 k/uL (150-450); RBC 3.51 m/uL (3.80-5.40); RDW 13.9 % (11.5-15.5); WBC 7.4 k/uL (3.8-10.6)
[2023-06-07 08:29] LABS: African American GFR (CKD) 47 (>60 ml/min/1.73 sqM); Anion Gap 4 mmol/L; Blood Urea Nitrogen 46 mg/dL (7-17); Calcium 8.4 mg/dL (8.4-10.2); Carbon Dioxide 20 mmol/L (22-30); Chloride 110 mmol/L (98-107); Glucose 205 mg/dL (74-99); Magnesium 2.1 mg/dL (1.6-2.3); Non-African American GFR(CKD) 40 (>60 ml/min/1.73 sqM); Potassium 4.4 mmol/L (3.5-5.1); Sodium 134 mmol/L (137-145)
--- NOTE | 2023-06-07 10:26 | P.PN ---
Subjective Patient is seen in follow-up for chronic kidney disease. Renal function stable. On IV Lasix. Admits to good urine output. Edema improving. Vital signs are stable. General: No acute distress. HEENT: Head exam is unremarkable. LUNGS: No audible rhonchi or wheezes. HEART: Rate and Rhythm are regular. ABDOMEN: Nontender. EXTREMITITES: 2+ edema. Objective - Vital Signs Vital signs: Vital Signs Temp 97.7 F 06/07/23 07:43 Pulse 96 06/07/23 08:50 Resp 17 06/07/23 08:50 BP 157/97 06/07/23 07:43 Pulse Ox 96 06/07/23 07:43 FiO2 Intake & Output 06/06/23 06/07/23 06/07/23 18:59 06:59 18:59 Weight 92.986 kg Other: Voiding Method Toilet Toilet Toilet # Voids 2 2 1 - Labs CBC & Chem 7: 06/07/23 07:39 06/07/23 07:39 Labs: Abnormal Lab Results - Last 24 Hours (Table) 06/06/23 06/06/23 06/06/23 Range/Units 11:11 16:25 20:52 RBC (3.80-5.40) m/uL Hgb (11.4-16.0) gm/dL Hct (34.0-46.0) % Sodium (137-145) mmol/L Chloride (98-107) mmol/L Carbon Dioxide (22-30) mmol/L BUN (7-17) mg/dL Creatinine (0.52-1.04) mg/dL Glucose (74-99) mg/dL POC Glucose (mg/dL) 179 H 187 H 386 H (70-110) mg/dL 06/07/23 06/07/23 06/07/23 Range/Units 01:23 05:54 07:39 RBC (3.80-5.40) m/uL Hgb (11.4-16.0) gm/dL Hct (34.0-46.0) % Sodium 134 L (137-145) mmol/L Chloride 110 H (98-107) mmol/L Carbon Dioxide 20 L (22-30) mmol/L BUN 46 H (7-17) mg/dL Creatinine 1.65 H (0.52-1.04) mg/dL Glucose 205 H (74-99) mg/dL POC Glucose (mg/dL) 273 H 265 H (70-110) mg/dL 06/07/23 Range/Units 07:39 RBC 3.51 L (3.80-5.40) m/uL Hgb 10.2 L (11.4-16.0) gm/dL Hct 32.4 L (34.0-46.0) % Sodium (137-145) mmol/L Chloride (98-107) mmol/L Carbon Dioxide (22-30) mmol/L BUN (7-17) mg/dL Creatinine (0.52-1.04) mg/dL Glucose (74-99) mg/dL POC Glucose (mg/dL) (70-110) mg/dL Assessment and Plan Plan: Assessment: 1. Chronic kidney disease stage IIIb secondary to biopsy-proven diabetic kidney disease. Renal function stable. 2. Volume overload due to nephrotic syndrome. Improving with diuresis. 3. Type 1 diabetes mellitus, uncontrolled. 4. Hypertension with chronic kidney disease. 5. Metabolic acidosis secondary to chronic kidney disease. 6. Anemia of chronic kidney disease. Rule out iron deficiency. Plan: Maintain IV Lasix. Maintain metolazone. Low-salt diet and 1500 cc fluid restriction. Increase lisinopril to 10 mg twice daily. Continue to monitor renal function and urine output. Check iron studies. Hold off on SGLT2 inhibitors due to uncontrolled type 1 diabetes.
[2023-06-07 11:53] LABS: Glucose,Whole Blood 277 mg/dL (70-110)
[2023-06-07 16:31] LABS: Glucose,Whole Blood 211 mg/dL (70-110)
--- NOTE | 2023-06-07 17:11 | P.PN ---
Subjective Progress Note Date: 06/07/23 32-year-old female presenting to the ER with a chief complaint of bilateral leg swelling. She has a past medical history significant of nephrotic syndrome and follows up with Dr. Rodriguez. She reports for the past 3 to 4 days she has been having increase in swelling in bilateral lower extremities. She states her pants that she is currently wearing are typically loose around the ankles and calves and currently they are extremely tight. She also is reporting bilateral finger swelling. She was instructed by Dr. Rodriguez when she is retaining water to increase Lasix to 60 mg daily. She has been taking 60 mg of Lasix daily for the past 4 days without relief of edema. She also is reporting shortness of breath especially with exertion and is unable to lay flat due to shortness of breath. She reports dizziness/lightheadedness with deep breathing. Patient reports it takes her about a minute or 2 to regain breath after exertion. Denies any chest pain, fevers, chills, abdominal pain, urinary complaints. Blood work completed in ED reveals a WBC of 15.4, hemoglobin of 11.4 and platelet count of 305, sodium 133, potassium 4.5, BUNs/creatinine 46/1.81 UA is positive for moderate amount of blood, RBCs, rare bacteria --Patient reports improving edema; continues to have good urine output Vital signs reviewed and are stable Lab review reveals WBC 7.4, hemoglobin 10.2 and platelet count of 299, sodium 134, potassium 4.4, BUNs/creatinine of 46/1.65 and blood glucose of 205 -- Remains on IV Lasix and metolazone; 1500 cc fluid restriction and low-salt diet -- Lisinopril was increased to 10 mg twice daily for improved blood pressure control Objective - Vital Signs Vital signs: Vital Signs Temp 97.7 F 06/07/23 07:43 Pulse 96 06/07/23 08:50 Resp 17 06/07/23 08:50 BP 157/97 06/07/23 07:43 Pulse Ox 96 06/07/23 07:43 FiO2 Intake & Output 06/06/23 06/07/23 06/07/23 18:59 06:59 18:59 Weight 92.986 kg Other: Voiding Method Toilet Toilet Toilet # Voids 2 2 1 - Exam General appearance: alert, in no apparent distress Head exam: Present: atraumatic, normocephalic, normal inspection Eye exam: Present: normal appearance, PERRL, EOMI. Absent: scleral icterus, conjunctival injection, periorbital swelling Respiratory exam: Present: normal lung sounds bilaterally. Absent: respiratory distress, wheezes, rales, rhonchi, stridor Cardiovascular Exam: Present: normal rhythm, tachycardia, normal heart sounds Extremities exam: Present: pedal edema (1-2+ pitting tibial edema bilaterally. Bilateral calf tightness) Neurological exam: Present: alert, oriented X3, CN II-XII intact Skin exam: Present: warm, dry, intact, normal color. Absent: rash - Labs CBC & Chem 7: 06/07/23 07:39 06/07/23 07:39 Labs: Abnormal Lab Results - Last 24 Hours (Table) 06/06/23 06/06/23 06/07/23 Range/Units 16:25 20:52 01:23 RBC (3.80-5.40) m/uL Hgb (11.4-16.0) gm/dL Hct (34.0-46.0) % Sodium (137-145) mmol/L Chloride (98-107) mmol/L Carbon Dioxide (22-30) mmol/L BUN (7-17) mg/dL Creatinine (0.52-1.04) mg/dL Glucose (74-99) mg/dL POC Glucose (mg/dL) 187 H 386 H 273 H (70-110) mg/dL 06/07/23 06/07/23 06/07/23 Range/Units 05:54 07:39 07:39 RBC 3.51 L (3.80-5.40) m/uL Hgb 10.2 L (11.4-16.0) gm/dL Hct 32.4 L (34.0-46.0) % Sodium 134 L (137-145) mmol/L Chloride 110 H (98-107) mmol/L Carbon Dioxide 20 L (22-30) mmol/L BUN 46 H (7-17) mg/dL Creatinine 1.65 H (0.52-1.04) mg/dL Glucose 205 H (74-99) mg/dL POC Glucose (mg/dL) 265 H (70-110) mg/dL Microbiology - Last 24 Hours (Table) 06/05/23 18:47 Urine Culture - Final Urine,Voided Assessment and Plan Assessment: 1. Generalized anasarca/nephrotic syndrome -- Patient is in volume overload due to nephrotic syndrome; instructed by primary security patrol officer to increase Lasix up to 60 mg daily which was ineffective -- Patient has been evaluated by nephrology and is placed on Lasix 60 mg IV every 12 hours -- Currently on Zaroxolyn 5 mg daily -Patient to resume low-salt diet and 1500 cc fluid restriction 2. Sinus tachycardia; likely related to fluid overload and dyspnea; we will monitor and further workup if persists 3. Chronic kidney disease stage III; renal function at baseline; we will monitor strict MIKAYLA's, daily weights, renal function electrolytes; avoid nephrotoxins and hypotension 4. Leukocytosis; possible UTI; patient is afebrile; we will monitor CBC and make further recommendations; monitor of antibiotics 5. Hypertension; lisinopril 10 mg daily; metoprolol 25 mg twice daily 6. Diabetes mellitus type 1; uncontrolled; patient has an insulin pump in [facility]; monitor Accu-Cheks before every meal and at bedtime with insulin sliding scale 7. ADHD/anxiety/depression; we will continue with home dose of Adderall, Ativan 0.5 mg daily as needed DVT prophylaxis; SCDs CODE STATUS; full code
[2023-06-07 20:54] LABS: Glucose,Whole Blood 297 mg/dL (70-110)
[2023-06-07] MEDS: lisinopriL 10 MG TAB PO SCH (21:24)
[2023-06-08 02:09] LABS: Glucose,Whole Blood 285 mg/dL (70-110)
[2023-06-08 06:08] LABS: Glucose,Whole Blood 292 mg/dL (70-110)
[2023-06-08 09:23] LABS: % Iron Saturation 18.7 (12.00-45.00); Ferritin 54.3 ng/mL (10.0-291.0)
[2023-06-08 10:02] LABS: Basophils # (A) 0.1 k/uL (0-0.2); Basophils % (A) 1 %; Eosinophils # (A) 0.1 k/uL (0-0.7); Eosinophils % (A) 1 %; HCT 36.1 % (34.0-46.0); HGB 11.4 gm/dL (11.4-16.0); Lymphocytes % (A) 44 %; MCH 29.1 pg (25.0-35.0); MCHC 31.5 g/dL (31.0-37.0); MCV 92.5 fL (80.0-100.0); Mean Platelet Volume 7.5; Monocytes # (A) 0.2 k/uL (0-1.0); Monocytes % (A) 4 %; Neutrophils # (A) 3.3 k/uL (1.3-7.7); Neutrophils % (A) 49 %; Platelet Count 313 k/uL (150-450); RDW 13.8 % (11.5-15.5); WBC 6.7 k/uL (3.8-10.6)
[2023-06-08 11:28] LABS: African American GFR (CKD) 45 (>60 ml/min/1.73 sqM); Anion Gap 4 mmol/L; Blood Urea Nitrogen 46 mg/dL (7-17); Calcium 8.6 mg/dL (8.4-10.2); Carbon Dioxide 20 mmol/L (22-30); Chloride 108 mmol/L (98-107); Glucose 235 mg/dL (74-99); Non-African American GFR(CKD) 39 (>60 ml/min/1.73 sqM); Potassium 4.4 mmol/L (3.5-5.1); Sodium 132 mmol/L (137-145)
--- NOTE | 2023-06-08 11:40 | P.PN ---
Subjective patient is seen for follow-up for chronic kidney disease. She is currently being diuresed. Overall feeling better but still remains with significant edema. Maintained on IV Lasix. Serum creatinine 1.6 mg/dL. Objective - Vital Signs Vital signs: Vital Signs Temp 98.0 F 06/08/23 07:04 Pulse 89 06/08/23 07:04 Resp 17 06/08/23 07:04 BP 153/94 06/08/23 07:04 Pulse Ox 97 06/08/23 07:04 FiO2 Intake & Output 06/07/23 06/08/23 06/08/23 18:59 06:59 18:59 Other: Voiding Method Toilet Toilet Toilet # Voids 3 2 - Exam patient is comfortable awake alert oriented 3 Examination of the heart S1 and S2 Examination of the lungs decreased breath sounds at the bases Abdomen is soft nontender Examination of lower extremity shows edema 2+ bilaterally BUSINESS ANALYTICS ANALYST exam grossly intact - Labs CBC & Chem 7: 06/08/23 09:30 06/08/23 09:30 Labs: Abnormal Lab Results - Last 24 Hours (Table) 06/07/23 06/07/23 06/07/23 Range/Units 07:39 11:51 16:29 Sodium (137-145) mmol/L Chloride (98-107) mmol/L Carbon Dioxide (22-30) mmol/L BUN (7-17) mg/dL Creatinine (0.52-1.04) mg/dL Glucose (74-99) mg/dL POC Glucose (mg/dL) 277 H 211 H (70-110) mg/dL Iron 43 L (50-170) UG/DL Transferrin 164.0 L (204.0-354.0) mg/dL 06/07/23 06/08/23 06/08/23 Range/Units 20:49 02:07 06:05 Sodium (137-145) mmol/L Chloride (98-107) mmol/L Carbon Dioxide (22-30) mmol/L BUN (7-17) mg/dL Creatinine (0.52-1.04) mg/dL Glucose (74-99) mg/dL POC Glucose (mg/dL) 297 H 285 H 292 H (70-110) mg/dL Iron (50-170) UG/DL Transferrin (204.0-354.0) mg/dL 06/08/23 Range/Units 09:30 Sodium 132 L (137-145) mmol/L Chloride 108 H (98-107) mmol/L Carbon Dioxide 20 L (22-30) mmol/L BUN 46 H (7-17) mg/dL Creatinine 1.68 H (0.52-1.04) mg/dL Glucose 235 H (74-99) mg/dL POC Glucose (mg/dL) (70-110) mg/dL Iron (50-170) UG/DL Transferrin (204.0-354.0) mg/dL Microbiology - Last 24 Hours (Table) 06/05/23 18:47 Urine Culture - Final Urine,Voided Assessment and Plan Assessment: 1. Chronic kidney disease stage IIIb secondary to biopsy-proven diabetic kidney disease. Renal function stable. 2. Volume overload due to nephrotic syndrome. Improving with diuresis. 3. Type 1 diabetes mellitus, uncontrolled. 4. Hypertension with chronic kidney disease. 5. Metabolic acidosis secondary to chronic kidney disease. 6. Anemia of chronic kidney disease. mild iron deficiency noted Plan: continue with IV Lasix and oral metolazone Continue salt and fluid restriction Add 2 doses of IV iron repeat labs in a.m. Daily weights
[2023-06-08 12:00] LABS: Glucose,Whole Blood 227 mg/dL (70-110)
[2023-06-08] MEDS ORDERED: SUMAtriptan succinate 50 MG TAB PO PRN (14:27)
[2023-06-08 16:34] LABS: Glucose,Whole Blood 542 mg/dL (70-110)
[2023-06-08 16:34] LABS: Glucose,Whole Blood 472 mg/dL (70-110)
[2023-06-08 20:43] LABS: Glucose,Whole Blood 510 mg/dL (70-110)
[2023-06-09 01:52] LABS: Glucose,Whole Blood 258 mg/dL (70-110)
[2023-06-09 05:53] LABS: Glucose,Whole Blood 207 mg/dL (70-110)
--- NOTE | 2023-06-09 06:03 | PN ---
PROGRESS NOTE DATE OF SERVICE: 06/08/2023 SUBJECTIVE: This is a 32-year-old woman who was admitted with generalized anasarca, nephrotic syndrome, on intravenous Lasix at this time. No chest pain or palpitations. The patient also had volume overload secondary to nephrotic syndrome. OBJECTIVE: VITAL SIGNS: Pulse is 83, blood pressure 150/99, and respirations 18. HEENT: Conjunctivae normal. CARDIOVASCULAR: S1, S2. RESPIRATIONS: Clear, few scattered rhonchi. ABDOMEN: Soft. LEGS: Bilateral leg edema. LABORATORY DATA: Reviewed. ASSESSMENT: 1. Illness anasarca, nephrotic syndrome. 2. Chronic kidney stage 3. 3. Diabetes mellitus, type 1. 4. Hypertension. 5. Multiple complex medical issues. RECOMMENDATIONS: Recommended to continue current management, continue symptomatic treatment. Continue with IV Lasix, fluid restriction. Continue rest of medications including DVT prophylaxis. Prognosis guarded. Further recommendations to follow. Monitor blood sugars. MMJONAH / JOSE ENRIQUEN: [id number] /
[2023-06-09 08:51] LABS: Basophils # (A) 0.04 X 10*3/uL (0.00-0.10); Basophils % (A) 0.5 %; Eosinophils # (A) 0.04 X 10*3/uL (0.04-0.35); Eosinophils % (A) 0.5 %; HCT 32.9 % (37.2-46.3); HGB 10.5 g/dL (12.0-15.0); Lymphocytes # (A) 3.65 X 10*3/uL (0.90-5.00); Lymphocytes % (A) 48.1 %; MCHC 31.9 g/dL (32.0-37.0); MCV 90.9 FL (80.0-97.0); Mean Platelet Volume 10.3 FL (9.5-12.2); Monocytes # (A) 0.52 X 10*3/uL (0.20-1.00); Monocytes % (A) 6.9 %; NRBC Per 100 WBC 0 X 10*3/uL (0.00-0.01); Neutrophils # (A) 3.29 X 10*3/uL (1.80-7.70); Neutrophils % (A) 43.3 %; Platelet Count 322 X 10*3/uL (140-440); RBC 3.62 X 10*6/uL (4.10-5.20); RDW 13.6 % (11.5-14.5); WBC 7.59 X 10*3/uL (4.50-10.00)
[2023-06-09 09:12] LABS: ALT 27 U/L (8-44); AST 21 U/L (13-35); Albumin 2.4 g/dL (3.8-4.9); Albumin/Globulin Ratio 1.04 Ratio (1.60-3.17); Alkaline Phosphatase 89 U/L (41-126); BUN/Creat Ratio 26.26 Ratio (12.00-20.00); Blood Urea Nitrogen 49.9 mg/dL (9.0-27.0); Calcium 8.5 mg/dL (8.7-10.3); Chloride 104 mmol/L (96-109); Globulin 2.3 g/dL (1.6-3.3); Glucose 219 mg/dL (70-110); Potassium 4.8 mmol/L (3.5-5.5); Sodium 135 mmol/L (135-145); Total Bilirubin <0.2 mg/dL (0.3-1.2); Total Protein 4.7 g/dL (6.2-8.2)
[2023-06-09] MEDS: FAMOTIDINE 20 MG TAB PO SCH (09:29)
[2023-06-09 11:10] LABS: Glucose,Whole Blood 109 mg/dL (70-110)
--- NOTE | 2023-06-09 12:19 | P.PN ---
Subjective patient is seen for follow-up for chronic kidney disease and volume overload. She is currently being diuresed. Overall feeling better but still remains with significant edema. Maintained on IV Lasix. Serum creatinine 1.9 mg/dL today. patient was complaining of feeling lightheaded on standing up. Orthostatics will be checked. Objective - Vital Signs Vital signs: Vital Signs Temp 98.2 F 06/09/23 07:28 Pulse 86 06/09/23 07:28 Resp 16 06/09/23 07:28 BP 143/96 06/09/23 10:39 Pulse Ox 96 06/09/23 07:28 FiO2 Intake & Output 06/08/23 06/09/23 06/09/23 18:59 06:59 18:59 Weight 102.5 kg Other: Voiding Method Toilet Toilet # Voids 3 3 - Exam patient is comfortable awake alert oriented 3 Examination of the heart S1 and S2 Examination of the lungs decreased breath sounds at the bases Abdomen is soft nontender Examination of lower extremity shows edema 2+ bilaterally PROPERTY PRESERVATION SPECIALIST exam grossly intact - Labs CBC & Chem 7: 06/09/23 04:00 06/09/23 04:00 Labs: Abnormal Lab Results - Last 24 Hours (Table) 06/08/23 06/08/23 06/08/23 Range/Units 16:32 16:33 20:42 RBC (4.10-5.20) X 10*6/uL Hgb (12.0-15.0) g/dL Hct (37.2-46.3) % MCHC (32.0-37.0) g/dL Immature Gran # (0.00-0.04) X 10*3/uL BUN (9.0-27.0) mg/dL Creatinine (0.6-1.5) mg/dL Est GFR (CKD-EPI) (>=60) BUN/Creatinine Ratio (12.00-20.00) Ratio Glucose (70-110) mg/dL POC Glucose (mg/dL) 542 H 472 H 510 H (70-110) mg/dL Calcium (8.7-10.3) mg/dL Total Bilirubin (0.3-1.2) mg/dL Total Protein (6.2-8.2) g/dL Albumin (3.8-4.9) g/dL Albumin/Globulin Ratio (1.60-3.17) Ratio 06/09/23 06/09/23 06/09/23 Range/Units 01:51 04:00 04:00 RBC 3.62 L (4.10-5.20) X 10*6/uL Hgb 10.5 L (12.0-15.0) g/dL Hct 32.9 L (37.2-46.3) % MCHC 31.9 L (32.0-37.0) g/dL Immature Gran # 0.05 H (0.00-0.04) X 10*3/uL BUN 49.9 H (9.0-27.0) mg/dL Creatinine 1.9 H (0.6-1.5) mg/dL Est GFR (CKD-EPI) 35 L (>=60) BUN/Creatinine Ratio 26.26 H (12.00-20.00) Ratio Glucose 219 H (70-110) mg/dL POC Glucose (mg/dL) 258 H (70-110) mg/dL Calcium 8.5 L (8.7-10.3) mg/dL Total Bilirubin <0.2 L (0.3-1.2) mg/dL Total Protein 4.7 L (6.2-8.2) g/dL Albumin 2.4 L (3.8-4.9) g/dL Albumin/Globulin Ratio 1.04 L (1.60-3.17) Ratio 06/09/23 Range/Units 05:52 RBC (4.10-5.20) X 10*6/uL Hgb (12.0-15.0) g/dL Hct (37.2-46.3) % MCHC (32.0-37.0) g/dL Immature Gran # (0.00-0.04) X 10*3/uL BUN (9.0-27.0) mg/dL Creatinine (0.6-1.5) mg/dL Est GFR (CKD-EPI) (>=60) BUN/Creatinine Ratio (12.00-20.00) Ratio Glucose (70-110) mg/dL POC Glucose (mg/dL) 207 H (70-110) mg/dL Calcium (8.7-10.3) mg/dL Total Bilirubin (0.3-1.2) mg/dL Total Protein (6.2-8.2) g/dL Albumin (3.8-4.9) g/dL Albumin/Globulin Ratio (1.60-3.17) Ratio Assessment and Plan Assessment: 1. Chronic kidney disease stage IIIb secondary to biopsy-proven diabetic kidney disease. serum creatinine slightly increased. Rule out orthostatic hypotension. Patient is maintained on CARLOS EDUARDO inhibitor's 2. Volume overload due to nephrotic syndrome. Improving with diuresis. 3. Type 1 diabetes mellitus, uncontrolled. 4. Hypertension with chronic kidney disease. 5. Metabolic acidosis secondary to chronic kidney disease. 6. Anemia of chronic kidney disease. mild iron deficiency noted Plan: continue with IV Lasix and oral metolazone Accurate I's and O's with daily weights Continue salt and fluid restriction repeat labs in a.m.
[2023-06-09 16:29] LABS: Glucose,Whole Blood 140 mg/dL (70-110)
[2023-06-09 21:17] LABS: Glucose,Whole Blood 159 mg/dL (70-110)
--- NOTE | 2023-06-09 23:33 | PN ---
PROGRESS NOTE DATE OF SERVICE: 06/09/2023 SUBJECTIVE: This is a 32-year-old woman, who was admitted with illness, anasarca and fluid overload secondary to nephrotic syndrome, is being closely monitored. The patient is on IV Lasix. Serum creatinine is stable. No chest pain. No palpitation. The patient had biopsy-proven diabetic kidney disease. PHYSICAL EXAMINATION: VITAL SIGNS: Pulse is 94, blood pressure 123/87. The patient is mildly orthostatic. CHEST: Clear to auscultation. ABDOMEN: Soft. LEGS: Bilateral leg edema. NERVOUS SYSTEM: Nonfocal. LABORATORY DATA: Hemoglobin 10.5. Rest of the labs are noted. ASSESSMENT: 1. Diffuse anasarca secondary to nephrotic syndrome. 2. Chronic kidney disease stage 3. 3. Mild orthostatic hypotension. 4. Hypertension history. 5. Diabetes mellitus, type 2. 6. Multiple complex medical issues. RECOMMENDATIONS: Recommend to continue current management, continue symptomatic treatment. Otherwise, the patient is on Lasix. At this time, we will continue to monitor. Otherwise, the patient is on Zaroxolyn as well. We will reduce lisinopril to daily and continue to monitor. Further recommendations to follow. MMODL / IJN: [id number] /
[2023-06-10 05:50] LABS: Glucose,Whole Blood 186 mg/dL (70-110)
[2023-06-10 09:00] LABS: Basophils # (A) 0.06 X 10*3/uL (0.00-0.10); Basophils % (A) 0.7 %; Eosinophils # (A) 0.06 X 10*3/uL (0.04-0.35); Eosinophils % (A) 0.7 %; HCT 33.3 % (37.2-46.3); HGB 10.6 g/dL (12.0-15.0); Lymphocytes # (A) 4.17 X 10*3/uL (0.90-5.00); Lymphocytes % (A) 49.3 %; MCHC 31.8 g/dL (32.0-37.0); MCV 91.2 FL (80.0-97.0); Mean Platelet Volume 10.1 FL (9.5-12.2); Monocytes # (A) 0.61 X 10*3/uL (0.20-1.00); Monocytes % (A) 7.2 %; NRBC Per 100 WBC 0.02 X 10*3/uL (0.00-0.01); Neutrophils # (A) 3.48 X 10*3/uL (1.80-7.70); Neutrophils % (A) 41.2 %; Platelet Count 313 X 10*3/uL (140-440); RBC 3.65 X 10*6/uL (4.10-5.20); WBC 8.46 X 10*3/uL (4.50-10.00)
[2023-06-10] MEDS: lisinopriL 10 MG TAB PO SCH (09:34)
[2023-06-10 10:24] LABS: ALT 49 U/L (8-44); AST 62 U/L (13-35); Albumin 2.4 g/dL (3.8-4.9); Albumin/Globulin Ratio 1.09 Ratio (1.60-3.17); Alkaline Phosphatase 106 U/L (41-126); BUN/Creat Ratio 29.39 Ratio (12.00-20.00); Blood Urea Nitrogen 52.9 mg/dL (9.0-27.0); Calcium 8.5 mg/dL (8.7-10.3); Carbon Dioxide 23.1 mmol/L (21.6-31.8); Chloride 102 mmol/L (96-109); Globulin 2.2 g/dL (1.6-3.3); Glucose 195 mg/dL (70-110); Potassium 4.6 mmol/L (3.5-5.5); Sodium 136 mmol/L (135-145); Total Bilirubin <0.2 mg/dL (0.3-1.2); Total Protein 4.6 g/dL (6.2-8.2)
[2023-06-10 11:16] LABS: Glucose,Whole Blood 187 mg/dL (70-110)
--- NOTE | 2023-06-10 11:39 | P.PN ---
Subjective patient is seen for follow-up for chronic kidney disease and volume overload. She is currently being diuresed. Overall feeling better but still remains with significant edema. Maintained on IV Lasix. Serum creatinine 1.8 mg/dL today. no orthostatics noted. Blood pressure increased on standing. Objective - Vital Signs Vital signs: Vital Signs Temp 97.7 F 06/10/23 07:12 Pulse 99 06/10/23 07:12 Resp 18 06/10/23 07:12 BP 144/80 06/10/23 07:12 Pulse Ox 97 06/10/23 07:12 FiO2 Intake & Output 06/09/23 06/10/23 06/10/23 18:59 06:59 18:59 Intake Total 240 Output Total 400 650 Balance -400 240 -650 Weight 99.5 kg Intake: Oral 240 Output: Urine 400 650 Other: Voiding Method Toilet Toilet # Voids 1 1 - Exam patient is comfortable awake alert oriented 3 Examination of lower extremity shows edema 2+ bilaterally CONTRACTS REPRESENTATIVE exam grossly intact - Labs CBC & Chem 7: 06/10/23 04:16 06/10/23 04:16 Labs: Abnormal Lab Results - Last 24 Hours (Table) 06/09/23 06/09/23 06/10/23 Range/Units 16:27 21:15 04:16 RBC 3.65 L (4.10-5.20) X 10*6/uL Hgb 10.6 L (12.0-15.0) g/dL Hct 33.3 L (37.2-46.3) % MCHC 31.8 L (32.0-37.0) g/dL Immature Gran # 0.08 H (0.00-0.04) X 10*3/uL NRBC/100 WBC Diff 0.02 H (0.00-0.01) X 10*3/uL BUN (9.0-27.0) mg/dL Creatinine (0.6-1.5) mg/dL Est GFR (CKD-EPI) (>=60) BUN/Creatinine Ratio (12.00-20.00) Ratio Glucose (70-110) mg/dL POC Glucose (mg/dL) 140 H 159 H (70-110) mg/dL Calcium (8.7-10.3) mg/dL Total Bilirubin (0.3-1.2) mg/dL AST (13-35) U/L ALT (8-44) U/L Total Protein (6.2-8.2) g/dL Albumin (3.8-4.9) g/dL Albumin/Globulin Ratio (1.60-3.17) Ratio 06/10/23 06/10/23 06/10/23 Range/Units 04:16 05:48 11:15 RBC (4.10-5.20) X 10*6/uL Hgb (12.0-15.0) g/dL Hct (37.2-46.3) % MCHC (32.0-37.0) g/dL Immature Gran # (0.00-0.04) X 10*3/uL NRBC/100 WBC Diff (0.00-0.01) X 10*3/uL BUN 52.9 H (9.0-27.0) mg/dL Creatinine 1.8 H (0.6-1.5) mg/dL Est GFR (CKD-EPI) 37 L (>=60) BUN/Creatinine Ratio 29.39 H (12.00-20.00) Ratio Glucose 195 H (70-110) mg/dL POC Glucose (mg/dL) 186 H 187 H (70-110) mg/dL Calcium 8.5 L (8.7-10.3) mg/dL Total Bilirubin <0.2 L (0.3-1.2) mg/dL AST 62 H (13-35) U/L ALT 49 H (8-44) U/L Total Protein 4.6 L (6.2-8.2) g/dL Albumin 2.4 L (3.8-4.9) g/dL Albumin/Globulin Ratio 1.09 L (1.60-3.17) Ratio Assessment and Plan Assessment: 1. Chronic kidney disease stage IIIb secondary to biopsy-proven diabetic kidney disease. serum creatinine slightly increased. no orthostatic hypotension noted. Patient is maintained on CARLOS EDUARDO inhibitor's 2. Volume overload due to nephrotic syndrome. Improving with diuresis. 3. Type 1 diabetes mellitus, uncontrolled. 4. Hypertension with chronic kidney disease. 5. Metabolic acidosis secondary to chronic kidney disease. 6. Anemia of chronic kidney disease. mild iron deficiency noted Plan: continue with IV Lasix and oral metolazone Accurate I's and O's with daily weights Continue salt and fluid restriction repeat labs in a.m. IV iron 1
[2023-06-10] MEDS: SODIUM FERRIC GLUCONAT-SUCROSE 125 MG in SODIUM CHLORIDE 0.9% 100 ML IVPB ONE (13:43)
[2023-06-10 16:01] LABS: Glucose,Whole Blood 181 mg/dL (70-110)
--- NOTE | 2023-06-10 20:30 | PN ---
PROGRESS NOTE DATE OF SERVICE: 06/10/2023 SUBJECTIVE: This is a 32-year-old woman, who was admitted with diffuse anasarca, improving significantly. No chest pain. No palpitations. No fever. OBJECTIVE: VITAL SIGNS: Pulse 99, blood pressure 100/74, respirations 16. CHEST: Clear. CARDIOVASCULAR: S1, S2. ABDOMEN: Soft. LEGS: Bilateral leg edema. LABORATORY DATA: Creatinine 1.8. ASSESSMENT: 1. Diffuse anasarca secondary to nephrotic syndrome, on IV Lasix. 2. Chronic kidney disease, stage 3. 3. Mild orthostatic hypotension. 4. Hypertension history. 5. Diabetes mellitus, type 2. 6. Multiple complex medical issues. RECOMMENDATIONS: Recommend to continue current management and continue symptomatic treatment. Otherwise, continue with diuretics. Limit p.o. intake. Closely follow with Dr. Damon. Further recommendations to follow. MMLOVEL / JOSE ENRIQUEN: [id number] /
[2023-06-11 06:00] LABS: Glucose,Whole Blood 231 mg/dL (70-110)
--- NOTE | 2023-06-11 12:06 | P.PN ---
Subjective patient is seen for follow-up for chronic kidney disease and volume overload. She is currently being diuresed. Overall feeling better but still remains with significant edema. Maintained on IV Lasix. Serum creatinine 1.8 mg/dL . weight noted to have increased. Objective - Vital Signs Vital signs: Vital Signs Temp 97.8 F 06/11/23 07:54 Pulse 95 06/11/23 07:54 Resp 16 06/11/23 07:54 BP 129/85 06/11/23 07:54 Pulse Ox 98 06/11/23 07:54 FiO2 Intake & Output 06/10/23 06/11/23 06/11/23 18:59 06:59 18:59 Output Total 650 Balance -650 Weight 101 kg Output: Urine 650 Other: Voiding Method Toilet Toilet Toilet # Voids 9 3 # Bowel Movements 1 - Exam patient is comfortable awake alert oriented 3 Examination of the heart S1 and S2 Examination of the lungs bilateral breath sounds are heard Abdomen is soft nontender Examination of lower extremity shows edema 2+ bilaterally SUPERVISOR BUFFING AND PASTING exam grossly intact - Labs CBC & Chem 7: 06/10/23 04:16 06/10/23 04:16 Labs: Abnormal Lab Results - Last 24 Hours (Table) 06/10/23 06/11/23 Range/Units 16:00 05:58 POC Glucose (mg/dL) 181 H 231 H (70-110) mg/dL Assessment and Plan Assessment: 1. Chronic kidney disease stage IIIb secondary to biopsy-proven diabetic kidney disease. serum creatinine slightly increased. no orthostatic hypotension noted. Patient is maintained on CARLOS EDUARDO inhibitor's 2. Volume overload due to nephrotic syndrome. Improving with diuresis. 3. Type 1 diabetes mellitus, uncontrolled. 4. Hypertension with chronic kidney disease. 5. Metabolic acidosis secondary to chronic kidney disease. 6. Anemia of chronic kidney disease. mild iron deficiency noted. Status post 1 dose of IV iron Plan: continue with IV Lasix, increase dose for 24 hours and continue with oral metolazone Accurate I's and O's with daily weights Continue salt and fluid restriction repeat labs in a.m. patient can most likely be discharged tomorrow.
--- NOTE | 2023-06-11 13:54 | PN ---
PROGRESS NOTE DATE OF SERVICE: 06/11/2023 SUBJECTIVE: This 32-year-old woman was admitted with diffuse anasarca and nephrotic syndrome, is closely monitored. Dr. Damon would like the patient to have at least 24 more hours. No chest pain, no palpitation. OBJECTIVE: VITAL SIGNS: Pulse 95, blood pressure 110/85, respirations 16. CHEST: Clear to auscultation. CARDIOVASCULAR: S1, S2. ABDOMEN: Soft. LEGS: Bilateral leg edema. LABORATORY DATA: Reviewed. ASSESSMENT: 1. Diffuse anasarca secondary to nephrotic syndrome, on IV Lasix. 2. Chronic kidney stage 3. 3. Mild orthostatic hypotension, improved. 4. Hypertension history. 5. Multiple medical issues. RECOMMENDATIONS: Recommended to continue current management, continue symptomatic treatment. Continue with Lasix. Repeat labs in the morning. Monitor blood sugars closely. Closely follow with Nephrology for further discussion. Further recommendations to follow. MMODL / IJN: [id number] /
[2023-06-11] MEDS: FUROSEMIDE 10 MG/ML 10 ML VIAL IV SCH (16:47)
[2023-06-11 20:25] LABS: Glucose,Whole Blood 240 mg/dL (70-110)
[2023-06-12 02:00] LABS: Glucose,Whole Blood 451 mg/dL (70-110)
[2023-06-12 02:56] VITALS: PULSE 97
[2023-06-12 05:39] LABS: Glucose,Whole Blood 289 mg/dL (70-110)
[2023-06-12 08:28] VITALS: BP 136/91; RESP 18; TEMP 98.3
--- NOTE | 2023-06-12 10:59 | P.PN ---
Subjective patient is seen for follow-up for chronic kidney disease and volume overload. She is currently being diuresed. Overall feeling better but still remains with significant edema. Maintained on IV Lasix. Serum creatinine 1.8 mg/dL . weight is down. Patient wants to go home. Objective - Vital Signs Vital signs: Vital Signs Temp 98.3 F 06/12/23 07:48 Pulse 97 06/12/23 07:48 Resp 18 06/12/23 07:48 BP 136/91 06/12/23 07:48 Pulse Ox 97 06/12/23 07:48 FiO2 Intake & Output 06/11/23 06/12/23 06/12/23 18:59 06:59 18:59 Weight 100.3 kg Other: Voiding Method Toilet # Voids 3 2 - Exam patient is comfortable awake alert oriented 3 Examination of lower extremity shows edema 2+ bilaterally STRATEGY ANALYST exam grossly intact - Labs CBC & Chem 7: 06/10/23 04:16 06/10/23 04:16 Labs: Abnormal Lab Results - Last 24 Hours (Table) 06/11/23 06/12/23 06/12/23 Range/Units 20:23 01:55 05:35 POC Glucose (mg/dL) 240 H 451 H 289 H (70-110) mg/dL Assessment and Plan Assessment: 1. Chronic kidney disease stage IIIb secondary to biopsy-proven diabetic kidney disease. serum creatinine slightly increased. no orthostatic hypotension noted. Patient is maintained on CARLOS EDUARDO inhibitor's 2. Volume overload due to nephrotic syndrome. Improving with diuresis. 3. Type 1 diabetes mellitus, uncontrolled. 4. Hypertension with chronic kidney disease. 5. Metabolic acidosis secondary to chronic kidney disease. 6. Anemia of chronic kidney disease. mild iron deficiency noted. Status post 1 dose of IV iron Plan: patient can be discharged today. She will continue with torsemide 40 mg a.m. and 20 mg at p.m. along with Zaroxolyn 2.5 mg 3 times a week. Patient should follow-up in the office in 1 week's time.
[2023-06-12 11:34] LABS: Glucose,Whole Blood 196 mg/dL (70-110)
[2023-06-12 12:15] LABS: Basophils # (A) 0.04 X 10*3/uL (0.00-0.10); Basophils % (A) 0.5 %; Eosinophils # (A) 0.05 X 10*3/uL (0.04-0.35); Eosinophils % (A) 0.6 %; HCT 31.9 % (37.2-46.3); HGB 10.1 g/dL (12.0-15.0); Lymphocytes # (A) 3.14 X 10*3/uL (0.90-5.00); Lymphocytes % (A) 40.1 %; MCHC 31.7 g/dL (32.0-37.0); MCV 91.7 FL (80.0-97.0); Mean Platelet Volume 10.1 FL (9.5-12.2); Monocytes # (A) 0.72 X 10*3/uL (0.20-1.00); Monocytes % (A) 9.2 %; NRBC Per 100 WBC 0 X 10*3/uL (0.00-0.01); Neutrophils % (A) 48.5 %; Platelet Count 296 X 10*3/uL (140-440); RBC 3.48 X 10*6/uL (4.10-5.20); RDW 13.8 % (11.5-14.5); WBC 7.84 X 10*3/uL (4.50-10.00)
[2023-06-12 12:58] LABS: BUN/Creat Ratio 31.35 Ratio (12.00-20.00); Blood Urea Nitrogen 62.7 mg/dL (9.0-27.0); Calcium 8.8 mg/dL (8.7-10.3); Chloride 105 mmol/L (96-109); Glucose 278 mg/dL (70-110); Potassium 5.1 mmol/L (3.5-5.5); Sodium 136 mmol/L (135-145)
== END 2023-06-12 13:42 | disposition home or self-care (01) | DRG 699 ==
LOC: EC 17:24 → 4SSUR 19:57
PROVIDERS: ADMIT Internal Medicine; ATTEND Internal Medicine
DX: E10.21 Type 1 diabetes mellitus with diabetic nephropathy (principal); E87.1 Hypo-osmolality and hyponatremia; E87.20 Acidosis, unspecified; N39.0 Urinary tract infection, site not specified; E10.65 Type 1 diabetes mellitus with hyperglycemia; Z79.4 Long term (current) use of insulin; N18.32 Chronic kidney disease, stage 3b; J45.909 Unspecified asthma, uncomplicated; N17.9 Acute kidney failure, unspecified; D63.1 Anemia in chronic kidney disease; E10.22 Type 1 diabetes mellitus with diabetic chronic kidney disease; E88.09 Other disorders of plasma-protein metabolism, not elsewhere classified; F40.240 Claustrophobia; F32.A Depression, unspecified; F41.9 Anxiety disorder, unspecified; F90.9 Attention-deficit hyperactivity disorder, unspecified type; I12.9 Hypertensive chronic kidney disease with stage 1 through stage 4 chronic kidney disease, or unspecified chronic kidney disease; D50.9 Iron deficiency anemia, unspecified; I25.10 Atherosclerotic heart disease of native coronary artery without angina pectoris; K21.9 Gastro-esophageal reflux disease without esophagitis; R00.0 Tachycardia, unspecified; E87.70 Fluid overload, unspecified; K44.9 Diaphragmatic hernia without obstruction or gangrene; G43.909 Migraine, unspecified, not intractable, without status migrainosus; Z88.1 Allergy status to other antibiotic agents; Z88.8 Allergy status to other drugs, medicaments and biological substances; Z86.14 Personal history of Methicillin resistant Staphylococcus aureus infection; Z96.41 Presence of insulin pump (external) (internal); Z79.899 Other long term (current) drug therapy; Z87.891 Personal history of nicotine dependence
CPT/HCPCS: 36415; 71046; 80048; 80053; 81001; 81025; 82728; 83540; 83550; 83735; 83880; 85025; 87086; 93005; 99285

== ENCOUNTER 2023-12-23 18:46 | Emergency (ER) | payer BC, MEDICARE ==
[2023-12-23 18:53] VITALS: TEMP 97.7
[2023-12-23] MEDS: BENZONATATE 100 MG CAP PO STA (19:10)
--- NOTE | 2023-12-23 19:11 | ED ---
Recheck HPI - General Chief Complaint: Shortness of Breath Stated Complaint: cough/congestion Time Seen by Provider: 12/23/23 18:57 Source: patient, RN notes reviewed, old records reviewed Mode of arrival: ambulatory Limitations: no limitations - History of Present Illness Initial Comments: This is a 33-year-old female to the ER for evaluation of upper respiratory infection cough runny nose congestion and not feeling well. Patient was recently seen by primary care dyspnea wheezing history of asthma history of smoking patient was recently seen by primary care started on amoxicillin for upper respiratory infection and sinus infection and UTI MD Complaint: abnormal lab (Persistent symptoms worsening symptoms) -: days(s) Returns Today for: request for prescription Symptoms Since Prior Visit: improved Context: planned re-check Associated Symptoms: none - Related Data Home Medications Medication Instructions Recorded Confirmed Insulin Aspart (For Pump) [NovoLOG 0.01 unit SQ-PUMP CONTINUOUS 11/08/17 06/05/23 (For Pump)] Metoprolol Tartrate [Lopressor] 12.5 mg PO BID 07/10/22 06/05/23 Omeprazole 20 mg PO BID 07/10/22 06/05/23 Cyclobenzaprine [Flexeril] 10 mg PO HS 10/06/22 06/05/23 LORazepam [Ativan] 0.5 mg PO DAILY PRN 10/06/22 06/05/23 SUMAtriptan succinate [Imitrex] 50 mg PO BID PRN 12/17/22 06/05/23 Dextroamphetamine/Amphetamine 20 mg PO BID@0700,1300 01/05/23 06/05/23 [Adderall] lisinopriL [Zestril] 10 mg PO DAILY 01/05/23 06/05/23 Previous Rx's Medication Instructions Recorded Torsemide [Demadex] 20 mg PO TID #90 tab 06/12/23 metOLazone [Zaroxolyn] 5 mg PO DAILY #30 tab 06/12/23 Benzonatate [Tessalon Perles] 100 mg PO TID PRN #30 capsule 12/23/23 Allergies Allergy/AdvReac Type Severity Reaction Status Date / Time cephalexin [From Keflex] Allergy Swelling Verified 12/23/23 18:48 (tongue) midazolam [From Versed] AdvReac very Verified 12/23/23 18:48 anxious feeling Review of Systems ROS Statement: Those systems with pertinent positive or pertinent negative responses have been documented in the HPI. ROS Other: All systems not noted in ROS Statement are negative. Past Medical History Past Medical History: Asthma, Diabetes Mellitus, GERD/Reflux, Hypertension, Renal Disease Additional Past Medical History / Comment(s): hx. hiatal hernia, diabetic- TYPE 1 chronic kidney disease-protein in urine , albumin, MIGRAINE HEADACHES, CHILDHOOD ASTHMA, neuropathy in feet and legs, diabetic neuropathy History of Any Multi-Drug Resistant Organisms: MRSA Date of last positivie culture/infection: 2009 MDRO Source:: abdomen left side Past Surgical History: Section Additional Past Surgical History / Comment(s): surgery on cervix for abnormal cells, surgery groin area for grown hairs. bilateral cataract surgery with implants, Past Anesthesia/Blood Transfusion Reactions: Motion Sickness Additional Past Anesthesia/Blood Transfusion Reaction / Comment(s): Pt has clausterphobia. Past Psychological History: ADD/ADHD, Anxiety, Depression Smoking Status: Former smoker Past Alcohol Use History: Occasional Past Drug Use History: None Reported - Past Family History Mother Family Medical History: No Reported History, Thyroid Disorder Additional Family Medical History / Comment(s): gestational diabetes Father Family Medical History: No Reported History Additional Family Medical History / Comment(s): chrons disease General Exam Limitations: no limitations General appearance: alert, in no apparent distress Head exam: Present: atraumatic, normocephalic, normal inspection Eye exam: Present: normal appearance, PERRL, EOMI. Absent: scleral icterus, conjunctival injection, periorbital swelling ENT exam: Present: normal exam, mucous membranes moist Neck exam: Present: normal inspection. Absent: tenderness, meningismus, lymphadenopathy Respiratory exam: Present: normal lung sounds bilaterally. Absent: respiratory distress, wheezes, rales, rhonchi, stridor Cardiovascular Exam: Present: regular rate, normal rhythm, normal heart sounds. Absent: systolic murmur, diastolic murmur, rubs, gallop, clicks GI/Abdominal exam: Present: soft, normal bowel sounds. Absent: distended, tenderness, guarding, rebound, rigid Extremities exam: Present: normal inspection, full ROM, normal capillary refill. Absent: tenderness, pedal edema, joint swelling, calf tenderness Back exam: Present: normal inspection Neurological exam: Present: alert, oriented X3, CN II-XII intact Psychiatric exam: Present: normal affect, normal mood Skin exam: Present: warm, dry, intact, normal color. Absent: rash Course Vital Signs 12/23/23 12/23/23 12/23/23 18:48 19:51 19:59 Temperature 97.7 F Pulse Rate 112 H 74 74 Respiratory 20 18 18 Rate Blood Pressure 140/90 O2 Sat by Pulse 98 Oximetry 12/23/23 20:21 Temperature Pulse Rate 78 Respiratory 20 Rate Blood Pressure 143/93 O2 Sat by Pulse 98 Oximetry - Reevaluation(s) Reevaluation #1: 12/23/23 19:09 Medical records reviewed Reevaluation #2: 12/23/23 19:38 Patient symptoms are improved here in the ER Reevaluation #3: 12/23/23 19:38 Patient informed of results questions answered Reevaluation #4: Was pt. sent in by a medical professional or institution ([facility], SUPERVISOR COMPOSING ROOM, urgent care, hospital, or senior living...) When possible be specific @ -no Did you speak to anyone other than the patient for history (EMS, parent, family, police, friend...)? What history was obtained from this source @ -no Did you review nursing and triage notes (agree or disagree)? Why? @ -agree Are old charts reviewed (outside hosp., previous admission, EMS record, old EKG, old radiological studies, urgent care reports/EKG's, senior living records)? Report findings @ -yes Differential Diagnosis (chest pain, altered mental status, abdominal pain women, abdominal pain men, vaginal bleeding, weakness, fever, dyspnea, syncope, headache, dizziness, GI bleed, back pain, seizure, CVA, palpatations, mental health, musculoskeletal)? @ -prior EKG interpreted by me (3pts min.). @ -no X-rays interpreted by me (1pt min.). @ -yes negative for acute disease CT interpreted by me (1pt min.). @ -no U/S interpreted by me (1pt. min.). @ -no What testing was considered but not performed or refused? (CT, X-rays, U/S, labs)? Why? @ -none What meds were considered but not given or refused? Why? @ -none Did you discuss the management of the patient with other professionals (professionals i.e. Dr., PA, SUPERVISOR COMPOSING ROOM, lab, RT, psych nurse, psychologist social, bottle hop, teacher, financial aids officer, machine adjuster leader case trim)? Give summary @ -no Was smoking cessation discussed for >3mins.? @ -no Was critical care preformed (if so, how long)? @ -no Were there social determinants of health that impacted care today? How? (Homelessness, low income, unemployed, alcoholism, drug addiction, transportatio n, low edu. Level, literacy, decrease access to med. care, skilled nursing, rehab)? @ -none Was there de-escalation of care discussed even if they declined (Discuss DNR or withdrawal of care, Hospice)? DNR status @ -no What co-morbidities impacted this encounter? (DM, HTN, Smoking, COPD, CAD, Cancer, CVA, ARF, Chemo, Hep., AIDS, mental health diagnosis, sleep apnea, morbid obesity)? @ -none Was patient admitted / discharged? Hospital course, mention meds given and route, prescriptions, significant lab abnormalities, going to OR and other pertinent info. @ - 33 female with nonspecific symptoms of respiratory infection patient is taking antibiotics for UTI and sinus infection, patient will be discharged home continue antibiotics Discharge Undiagnosed new problem with uncertain prognosis? @ -no Drug Therapy requiring intensive monitoring for toxicity (Heparin, Nitro, Insulin, Cardizem)? @ -no Were any procedures done? @ -no Diagnosis/symptom? @ -Sinus infection Acute, or Chronic, or Acute on Chronic? @ -Acute Uncomplicated (without systemic symptoms) or Complicated (systemic symptoms)? @ -Complicated Side effects of treatment? @ -no Exacerbation, Progression, or Severe Exacerbation? @ -exacerbation Poses a threat to life or bodily function? How? (Chest pain, [place], [place], pneumonia, PE, COPD, DKA, ARF, appy, cholecystitis, CVA, Diverticulitis, Homicidal, Suicidal, threat to staff... and all critical care pts) @ -no Reevaluation #5: 12/23/23 19:38 Differential Dyspnea: Coronary syndrome, arrhythmia, tamponade, asthma, COPD, pulmonary embolism, pneumonia, pneumothorax, pulmonary effusion, anaphylaxis, diabetic ketoacidosis, flailed chest, pulmonary contusion, diaphragmatic rupture, anemia, neuromuscular, this is not meant to be an all-inclusive list. Medical Decision Making - Medical Decision Making 33 female with nonspecific symptoms of respiratory infection patient is taking antibiotics for UTI and sinus infection, patient will be discharged home continue antibiotics - Lab Data Lab Results 12/23/23 Range/Units 19:07 Influenza Type A (PCR) Not Detected (Not Detectd) Influenza Type B (PCR) Not Detected (Not Detectd) RSV (PCR) Not Detected (Not Detectd) SARS-CoV-2 (PCR) Not Detected (Not Detectd) - Radiology Data Radiology results: report reviewed (Chest x-ray is negative for acute disease), image reviewed Disposition Clinical Impression: Community acquired pneumonia, Acute exacerbation of chronic obstructive pulmonary disease, Dyspnea Disposition: ADMITTED IP TO THIS HOSP Condition: Fair Instructions (If sedation given, give patient instructions): Asthma (ED), Acute Bronchitis (ED) Prescriptions: Benzonatate [Tessalon Perles] 100 mg PO TID PRN #30 capsule PRN Reason: Cough Is patient prescribed a controlled substance at d/c from ED?: No Referrals: Mohit Curran MD [Primary Care Provider] - 1-2 days
[2023-12-23] MEDS: IPRATROPIUM-ALBUTEROL 3 ML NEB INHALATION STA (19:51)
[2023-12-23] MEDS: DEXAMETHASONE SOD PHOSPHATE 10 MG/ML 1 ML VIAL IM STA (19:55)
--- NOTE | 2023-12-23 20:00 | XR ---
EXAMINATION TYPE: XR chest 2V DATE OF EXAM: 12/23/2023 COMPARISON: 06/05/2023 INDICATION: Chest congestion with difficulty with deep breaths facial and bilateral lower extremity s welling and fever TECHNIQUE: Frontal and lateral views of the chest are obtained. FINDINGS: The heart size is normal. The pulmonary vasculature is normal. The lungs are clear. IMPRESSION: 1. No acute pulmonary process. [facility], Workstation: [facility], 12/23/2023 7:57 PM
[2023-12-23 20:23] VITALS: BP 143/93; PULSE 78; RESP 20
== END 2023-12-23 20:23 | disposition other institution (70) ==
LOC: EC 18:46
DX: J18.9 Pneumonia, unspecified organism (principal); J44.1 Chronic obstructive pulmonary disease with (acute) exacerbation; Z88.1 Allergy status to other antibiotic agents; Z88.8 Allergy status to other drugs, medicaments and biological substances; Z87.891 Personal history of nicotine dependence
CPT/HCPCS: 94640; 87636; 71046; 99285; 96372; J1100

== ENCOUNTER → 2024-01-07 | Outpatient (CLI) | payer MEDICARE ==
[2024-01-07 16:03] LABS: Basophils # (A) 0.04 X 10*3/uL (0.00-0.10); Basophils % (A) 0.4 %; Eosinophils # (A) 0.13 X 10*3/uL (0.04-0.35); Eosinophils % (A) 1.3 %; HCT 35.9 % (37.2-46.3); HGB 11.3 g/dL (12.0-15.0); Lymphocytes # (A) 3.02 X 10*3/uL (0.90-5.00); Lymphocytes % (A) 31.1 %; MCHC 31.5 g/dL (32.0-37.0); MCV 92.3 FL (80.0-97.0); Mean Platelet Volume 9.9 FL (9.5-12.2); Monocytes % (A) 8.2 %; NRBC Per 100 WBC 0 X 10*3/uL (0.00-0.01); NT-Pro-B-Type Natriuretic Pept 250 pg/mL (0-125); Neutrophils # (A) 5.61 X 10*3/uL (1.80-7.70); Neutrophils % (A) 57.9 %; Platelet Count 364 X 10*3/uL (140-440); RBC 3.89 X 10*6/uL (4.10-5.20); RDW 13.8 % (11.5-14.5); WBC 9.71 X 10*3/uL (4.50-10.00)
[2024-01-07 16:23] LABS: ALT 26 U/L (8-44); AST 29 U/L (13-35); Albumin 2.3 g/dL (3.8-4.9); Albumin/Globulin Ratio 1.05 Ratio (1.60-3.17); Alkaline Phosphatase 140 U/L (41-126); BUN/Creat Ratio 21.95 Ratio (12.00-20.00); Blood Urea Nitrogen 46.1 mg/dL (9.0-27.0); Calcium 8.5 mg/dL (8.7-10.3); Chloride 110 mmol/L (96-109); Globulin 2.2 g/dL (1.6-3.3); Glucose 140 mg/dL (70-110); Potassium 5.4 mmol/L (3.5-5.5); Sodium 139 mmol/L (135-145); Total Bilirubin <0.2 mg/dL (0.3-1.2); Total Protein 4.5 g/dL (6.2-8.2)
== END | disposition home or self-care (01) ==
LOC: LABWHC1 08:06
PROVIDERS: ATTEND Family Medicine
DX: E10.22 Type 1 diabetes mellitus with diabetic chronic kidney disease (principal); R22.40 Localized swelling, mass and lump, unspecified lower limb; N18.9 Chronic kidney disease, unspecified
CPT/HCPCS: 36415; 80053; 83880; 85025

== ENCOUNTER → 2024-02-01 | Outpatient (CLI) | payer MEDICARE ==
[2024-02-02 03:16] LABS: NT-Pro-B-Type Natriuretic Pept 681 pg/mL (0-125)
[2024-02-02 03:40] LABS: % Iron Saturation 9.38 (12.00-45.00); Albumin 2.3 g/dL (3.8-4.9); Ferritin 76.5 ng/mL (10.0-291.0); Iron 21 UG/DL (50-170); Total Iron Binding Capacity 224 UG/DL (228-460)
[2024-02-02 03:47] LABS: Microalbumin Creatinine Ratio >3964 mg/g Cr (0-30)
[2024-02-02 03:51] LABS: Basophils # (A) 0.05 X 10*3/uL (0.00-0.10); Basophils % (A) 0.4 %; Eosinophils # (A) 0.11 X 10*3/uL (0.04-0.35); HCT 38.1 % (37.2-46.3); HGB 11.3 g/dL (12.0-15.0); Lymphocytes # (A) 3.45 X 10*3/uL (0.90-5.00); MCHC 29.7 g/dL (32.0-37.0); MCV 94.3 FL (80.0-97.0); Mean Platelet Volume 10.3 FL (9.5-12.2); Monocytes # (A) 0.97 X 10*3/uL (0.20-1.00); Monocytes % (A) 8.7 %; NRBC Per 100 WBC 0.04 X 10*3/uL (0.00-0.01); Neutrophils # (A) 6.46 X 10*3/uL (1.80-7.70); Neutrophils % (A) 58.1 %; Platelet Count 342 X 10*3/uL (140-440); RBC 4.04 X 10*6/uL (4.10-5.20); RDW 13.8 % (11.5-14.5); WBC 11.13 X 10*3/uL (4.50-10.00)
[2024-02-02 05:00] LABS: Appearance,Urine Cloudy (Clear); Bilirubin,Urine Negative (Negative); Blood,Urine Moderate (Negative); Color,Urine Yellow (Yellow); Ketones,Urine Negative (Negative); Nitrite,Urine Negative (Negative); PH, Urine 5.5; Specific Gravity,Urine 1.024 (1.001-1.030); Urobilinogen,Urine 0.2 E.U./DL
[2024-02-02 05:41] LABS: Bacteria,Urine 3+ (None Seen)
== END | disposition home or self-care (01) ==
LOC: LABWHC1 16:00
PROVIDERS: ATTEND Internal Medicine Nephrology
DX: E10.22 Type 1 diabetes mellitus with diabetic chronic kidney disease (principal); N18.31 Chronic kidney disease, stage 3a; E55.9 Vitamin D deficiency, unspecified; M10.9 Gout, unspecified; N25.81 Secondary hyperparathyroidism of renal origin; N39.0 Urinary tract infection, site not specified; R80.9 Proteinuria, unspecified; R22.40 Localized swelling, mass and lump, unspecified lower limb
CPT/HCPCS: 36415; 81001; 82040; 82043; 82306; 82570; 82728; 83540; 83550; 83880; 83970; 84550; 85025

== ENCOUNTER → 2024-02-08 | Outpatient (CLI) | payer MEDICARE ==
--- NOTE | 2024-02-08 09:22 | CA ---
Transthoracic Echo Report Name: Yarely Enamorado Age: 33 Gender: F : 1990 Exam Date: 02/08/2024 08:25 Exam Location: [facility] Ht (in): 68 Wt (lb): 230 Ordering Physician: Mohit Curran MD Attending/Referring Phys: Maranda Nava [facility] Teaching Fellow Iris Ching RDCS Procedure CPT: Indications: R89.1 ABN LEVEL OF HORMONES IN SPECIMENS Cardiac Hx: Technical Quality: Fair Contrast 1: Total Dose (mL): Contrast 2: Total Dose (mL): MEASUREMENTS (Male / Female) Normal Values 2D ECHO LV Diastolic Diameter PLAX 3.3 cm 4.2 - 5.9 / 3.9 - 5.3 cm LV Systolic Diameter PLAX 2.3 cm IVS Diastolic Thickness 1.5 cm 0.6 - 1.0 / 0.6 - 0.9 cm LVPW Diastolic Thickness 1.4 cm 0.6 - 1.0 / 0.6 - 0.9 cm LV Relative Wall Thickness 0.9 RV Internal Dim ED PLAX 2.4 cm LA Systolic Diameter LX 3.7 cm 3.0 - 4.0 / 2.7 - 3.8 cm LV Diastolic Volume MOD BP 57.6 cm??? 67 - 155 / 56 - 104 cm??? LV Systolic Volume MOD BP 20.2 cm??? 22 - 58 / 19 - 49 cm??? LV Ejection Fraction MOD BP 65.0 % >= 55 % LV Cardiac Index MOD BP 1726.8 cm???/min???m??? LV Diastolic Volume MOD 4C 60.9 cm??? LV Systolic Volume MOD 4C 25.3 cm??? LV Ejection Fraction MOD 4C 58.5 % LV Cardiac Index MOD 4C 1643.4 cm???/min???m??? LV Diastolic Length 4C 8.3 cm LV Systolic Length 4C 6.7 cm LV Diastolic Volume MOD 2C 51.6 cm??? LV Systolic Volume MOD 2C 15.7 cm??? LV Ejection Fraction MOD 2C 69.5 % LV Cardiac Index MOD 2C 1656.0 cm???/min???m??? LV Diastolic Length 2C 7.8 cm LV Systolic Length 2C 6.4 cm M-MODE Aortic Root Diameter MM 3.1 cm LA Systolic Diameter MM 3.0 cm LA Ao Ratio MM 1.0 AV Cusp Separation MM 2.0 cm DOPPLER Mitral E Point Velocity 79.5 cm/s Mitral A Point Velocity 102.4 cm/s Mitral E to A Ratio 0.8 MV Deceleration Time 259.6 ms MV E' Velocity 13.4 cm/s Mitral E to MV E' Ratio 5.9 FINDINGS Left Ventricle Left ventricular ejection fraction is estimated at 55-60 %. Moderately increased septal wall thickness. Moderately increased posterior wall thickness. Normal left ventricular systolic function with no obvious regional wall motion abnormalities. Left ventricular cavity size normal. Right Ventricle Normal right ventricular size and function. Unable to estimate the right ventricular systolic pressure. Right Atrium Normal right atrial size. Left Atrium Normal left atrial size. Mitral Valve Structurally normal mitral valve. Trace mitral regurgitation. No mitral stenosis. Aortic Valve Trileaflet aortic valve. No aortic valve stenosis or regurgitation. Tricuspid Valve Structurally normal tricuspid valve. Trace to mild tricuspid regurgitation. No tricuspid stenosis. Pulmonic Valve Structurally normal pulmonic valve. Trace pulmonic regurgitation. Pericardium No pericardial or pleural effusion. Aorta Normal size aortic root and proximal ascending aorta. CONCLUSIONS Normal LV function Previewed by: Dr. Lpoez Taylor MD (Electronically Signed) Final Date: 08 February 2024 09:21
== END | disposition home or self-care (01) ==
LOC: RADECHMAIN 08:06
PROVIDERS: ATTEND Family Medicine
DX: R89.1 Abnormal level of hormones in specimens from other organs, systems and tissues (principal); I37.1 Nonrheumatic pulmonary valve insufficiency; I07.1 Rheumatic tricuspid insufficiency; I34.0 Nonrheumatic mitral (valve) insufficiency
CPT/HCPCS: 93306

== ENCOUNTER → 2024-02-08 | Outpatient (CLI) | payer MEDICARE ==
[2024-02-08 15:32] LABS: Estradiol 65.8 pg/mL; Testosterone 27.9 ng/dL (9.01-47.94)
[2024-02-08 15:43] LABS: Follicle Stimulating Hormone 2.4 mIU/mL; Luteinizing Hormone 6.9 mIU/mL
[2024-02-08 15:57] LABS: Progesterone 2.2 ng/mL
[2024-02-09 01:19] LABS: ACTH 16.6 pg/mL (0.00-45.99)
== END | disposition home or self-care (01) ==
LOC: LABWHC1 09:07
PROVIDERS: ATTEND Family Medicine
DX: L68.0 Hirsutism (principal)
CPT/HCPCS: 36415; 82024; 82533; 82670; 83001; 83002; 84144; 84402; 84403

== ENCOUNTER 2024-04-25 08:30 | Observation (INO) | payer MEDICARE ==
--- NOTE | 2024-04-25 10:42 | ED ---
Abdominal Pain HPI - General Chief Complaint: Abdominal Pain Stated Complaint: left abdominal pain, vomiting,diarrhea Time Seen by Provider: 04/25/24 08:45 Source: patient (9), RN notes reviewed Mode of arrival: ambulatory Limitations: no limitations - History of Present Illness Initial Comments: 33-year-old female presents emergency department chief complaint of nausea vomiting cough congestion left-sided abdominal pain. Patient states she is been sick over the last week but the pain started last couple days she states severe left-sided pain no urinary symptoms. She states she is nauseous she is not known type I diabetic on insulin pump with chronic kidney disease. Patient - Related Data Home Medications Medication Instructions Recorded Confirmed Insulin Aspart (For Pump) [NovoLOG 0.01 unit SQ-PUMP CONTINUOUS 11/08/17 06/05/23 (For Pump)] Metoprolol Tartrate [Lopressor] 12.5 mg PO BID 07/10/22 06/05/23 Omeprazole 20 mg PO BID 07/10/22 06/05/23 Cyclobenzaprine [Flexeril] 10 mg PO HS 10/06/22 06/05/23 LORazepam [Ativan] 0.5 mg PO DAILY PRN 10/06/22 06/05/23 SUMAtriptan succinate [Imitrex] 50 mg PO BID PRN 12/17/22 06/05/23 Dextroamphetamine/Amphetamine 20 mg PO BID@0700,1300 01/05/23 06/05/23 [Adderall] lisinopriL [Zestril] 10 mg PO DAILY 01/05/23 06/05/23 Previous Rx's Medication Instructions Recorded Torsemide [Demadex] 20 mg PO TID #90 tab 06/12/23 metOLazone [Zaroxolyn] 5 mg PO DAILY #30 tab 06/12/23 Benzonatate [Tessalon Perles] 100 mg PO TID PRN #30 capsule 12/23/23 Allergies Allergy/AdvReac Type Severity Reaction Status Date / Time cephalexin [From Keflex] Allergy Swelling Verified 04/25/24 08:39 (tongue) midazolam [From Versed] AdvReac very Verified 04/25/24 08:39 anxious feeling Review of Systems ROS Statement: Those systems with pertinent positive or pertinent negative responses have been documented in the HPI. ROS Other: All systems not noted in ROS Statement are negative. Past Medical History Past Medical History: Asthma, Diabetes Mellitus, GERD/Reflux, Hypertension, Renal Disease Additional Past Medical History / Comment(s): hx. hiatal hernia, diabetic- TYPE 1 chronic kidney disease-protein in urine , albumin, MIGRAINE HEADACHES, CHILDHOOD ASTHMA, neuropathy in feet and legs, diabetic neuropathy History of Any Multi-Drug Resistant Organisms: MRSA Date of last positivie culture/infection: 2009 MDRO Source:: abdomen left side Past Surgical History: Section Additional Past Surgical History / Comment(s): surgery on cervix for abnormal cells, surgery groin area for grown hairs. bilateral cataract surgery with implants, Past Anesthesia/Blood Transfusion Reactions: Motion Sickness Additional Past Anesthesia/Blood Transfusion Reaction / Comment(s): Pt has clausterphobia. Past Psychological History: ADD/ADHD, Anxiety, Depression Smoking Status: Former smoker Past Alcohol Use History: Occasional Past Drug Use History: None Reported - Past Family History Mother Family Medical History: No Reported History, Thyroid Disorder Additional Family Medical History / Comment(s): gestational diabetes Father Family Medical History: No Reported History Additional Family Medical History / Comment(s): chrons disease General Exam Limitations: no limitations General appearance: alert, in no apparent distress Head exam: Present: atraumatic, normocephalic, normal inspection Eye exam: Present: normal appearance, PERRL, EOMI. Absent: scleral icterus, conjunctival injection, periorbital swelling ENT exam: Present: normal exam, normal oropharynx, mucous membranes moist Neck exam: Present: normal inspection, full ROM. Absent: tenderness, meningismus, lymphadenopathy Respiratory exam: Present: normal lung sounds bilaterally. Absent: respiratory distress, wheezes, rales, rhonchi, stridor Cardiovascular Exam: Present: normal rhythm, tachycardia, normal heart sounds. Absent: systolic murmur, diastolic murmur, rubs, gallop, clicks GI/Abdominal exam: Present: soft, normal bowel sounds. Absent: distended, tenderness, guarding, rebound, rigid Neurological exam: Present: alert Skin exam: Present: warm, dry, intact, normal color. Absent: rash Course Vital Signs 04/25/24 04/25/24 08:37 11:47 Temperature 98.4 F Pulse Rate 116 H 97 Respiratory 20 16 Rate Blood Pressure 126/91 112/82 O2 Sat by Pulse 99 98 Oximetry Medical Decision Making - Medical Decision Making Was pt. sent in by a medical professional or institution (ROSA Hartley, ACCOUNT MANAGER B2B, urgent care, hospital, or half-way...) When possible be specific @ -No Did you speak to anyone other than the patient for history (EMS, parent, family, police, friend...)? What history was obtained from this source @ -No Did you review nursing and triage notes (agree or disagree)? Why? @ -I reviewed and agree with nursing and triage notes Were old charts reviewed (outside hosp., previous admission, EMS record, old EKG, old radiological studies, urgent care reports/EKG's, half-way records)? Report findings @ -No old charts were reviewed Differential Diagnosis (chest pain, altered mental status, abdominal pain women, abdominal pain men, vaginal bleeding, weakness, fever, dyspnea, syncope, headache, dizziness, GI bleed, back pain, seizure, CVA, palpatations, mental health, musculoskeletal)? @ -Differential Abdominal Pain Women: Appendicitis, Cholecystitis, diverticulosis, ischemic bowel, pancreatitis, hepatitis, UTI, gastroenteritis, AAA, incarcerated hernia, bowel obstruction, constipation, inflammatory bowel, hepatitis, peptic ulcer disease, splenic infarction, perforated viscus, vulvitis, ovarian torsion, PID, kidney stone, placenta abruption, this is not meant to be an all-inclusive list EKG interpreted by me (3pts min.). @ -As above X-rays interpreted by me (1pt min.). @ -None done CT interpreted by me (1pt min.). @ -CT them pelvis showing evidence of possible splenic infarcts laceration mild fluid noted U/S interpreted by me (1pt. min.). @ -None done What testing was considered but not performed or refused? (CT, X-rays, U/S, labs)? Why? @ -None What meds were considered but not given or refused? Why? @ -None Did you discuss the management of the patient with other professionals (professionals i.e. ROSA Hartley, ACCOUNT MANAGER B2B, lab, RT, psych nurse, director social service, battery charger tester, teacher, property officer, field nurse case manager)? Give summary @ -Discussed case with [facility] for admission, did contact Dr. Louis who requested ultrasound, addition to heterophile given splenic injury Was smoking cessation discussed for >3mins.? @ -No Was critical care preformed (if so, how long)? @ -No Were there social determinants of health that impacted care today? How? (Homelessness, low income, unemployed, alcoholism, drug addiction, transpor tation, low edu. Level, literacy, decrease access to med. care, prison, rehab)? @ -No Was there de-escalation of care discussed even if they declined (Discuss DNR or withdrawal of care, Hospice)? DNR status @ -No What co-morbidities impacted this encounter? (DM, HTN, Smoking, COPD, CAD, Cancer, CVA, ARF, Chemo, Hep., AIDS, mental health diagnosis, sleep apnea, morbid obesity)? @ -Diabetes, kidney disease Was patient admitted / discharged? Hospital course, mention meds given and route, prescriptions, significant lab abnormalities, going to OR and other pertinent info. @ -Admitted patient presented for increasing abdominal pain, dehydration. Patient is acute on chronic kidney disease, patient is dehydrated with metabolic acidosis none current DKA. Patient's found to have splenic infarct versus laceration patient no trauma for laceration. We discussed possibility of spontaneous rupture surgery was contacted who will evaluate the patient ultrasound was added. Patient will have repeat CBC for possible acute blood loss. Patient admitted for further evaluation and treatment Undiagnosed new problem with uncertain prognosis? @ -No Drug Therapy requiring intensive monitoring for toxicity (Heparin, Nitro, Insulin, Cardizem)? @ -No Were any procedures done? @ -No Diagnosis/symptom? @ -Metabolic acidosis, acute on chronic kidney disease, dehydration, splenic infarct Acute, or Chronic, or Acute on Chronic? @ -Acute Uncomplicated (without systemic symptoms) or Complicated (systemic symptoms)? @ -Complicated Side effects of treatment? @ -No Exacerbation, Progression, or Severe Exacerbation? @ -No Poses a threat to life or bodily function? How? (Chest pain, [place], [place], pneumonia, PE, COPD, DKA, ARF, appy, cholecystitis, CVA, Diverticulitis, Homicidal, Suicidal, threat to staff... and all critical care pts) @ -Yes a threat to endorgan failure - Lab Data Result diagrams: 04/25/24 10:46 04/25/24 10:46 Lab Results 04/25/24 04/25/24 04/25/24 Range/Units 10:46 10:46 10:46 WBC 12.4 H (3.8-10.6) k/uL RBC 4.31 (3.80-5.40) m/uL Hgb 12.0 (11.4-16.0) gm/dL Hct 38.9 (34.0-46.0) % MCV 90.3 (80.0-100.0) fL MCH 27.8 (25.0-35.0) pg MCHC 30.8 L (31.0-37.0) g/dL RDW 14.2 (11.5-15.5) % Plt Count 421 (150-450) k/uL MPV 7.5 Neutrophils % 58 % Lymphocytes % 33 % Monocytes % 6 % Eosinophils % 1 % Basophils % 0 % Neutrophils # 7.2 (1.3-7.7) k/uL Lymphocytes # 4.1 (1.0-4.8) k/uL Monocytes # 0.8 (0-1.0) k/uL Eosinophils # 0.1 (0-0.7) k/uL Basophils # 0.0 (0-0.2) k/uL Hypochromasia Moderate VBG pH 7.26 L (7.31-7.41) VBG pCO2 42 (37-51) mmHg VBG HCO3 19 L (24-28) mmol/L Sodium 134 L (137-145) mmol/L Potassium 5.4 H (3.5-5.1) mmol/L Chloride 111 H (98-107) mmol/L Carbon Dioxide 19 L (22-30) mmol/L Anion Gap 4 mmol/L BUN 40 H (7-17) mg/dL Creatinine 2.88 H (0.52-1.04) mg/dL Est GFR (CKD-EPI)AfAm 24 (>60 ml/min/1.73 sqM) Est GFR (CKD-EPI)NonAf 20 (>60 ml/min/1.73 sqM) Glucose 168 H (74-99) mg/dL Plasma Lactic Acid Reggie (0.7-2.0) mmol/L Calcium 8.4 (8.4-10.2) mg/dL Total Bilirubin 0.4 (0.2-1.3) mg/dL AST 18 (14-36) U/L ALT 23 (4-34) U/L Alkaline Phosphatase 151 H (38-126) U/L Total Protein 5.3 L (6.3-8.2) g/dL Albumin 2.3 L (3.5-5.0) g/dL Amylase 31 (30-110) U/L Lipase 37 (23-300) U/L HCG, Qual Acetone, Qual Negative (Negative) Influenza Type A (PCR) (Not Detectd) Influenza Type B (PCR) (Not Detectd) RSV (PCR) (Not Detectd) SARS-CoV-2 (PCR) (Not Detectd) 04/25/24 04/25/24 04/25/24 Range/Units 10:46 10:46 10:46 WBC (3.8-10.6) k/uL RBC (3.80-5.40) m/uL Hgb (11.4-16.0) gm/dL Hct (34.0-46.0) % MCV (80.0-100.0) fL MCH (25.0-35.0) pg MCHC (31.0-37.0) g/dL RDW (11.5-15.5) % Plt Count (150-450) k/uL MPV Neutrophils % % Lymphocytes % % Monocytes % % Eosinophils % % Basophils % % Neutrophils # (1.3-7.7) k/uL Lymphocytes # (1.0-4.8) k/uL Monocytes # (0-1.0) k/uL Eosinophils # (0-0.7) k/uL Basophils # (0-0.2) k/uL Hypochromasia VBG pH (7.31-7.41) VBG pCO2 (37-51) mmHg VBG HCO3 (24-28) mmol/L Sodium (137-145) mmol/L Potassium (3.5-5.1) mmol/L Chloride (98-107) mmol/L Carbon Dioxide (22-30) mmol/L Anion Gap mmol/L BUN (7-17) mg/dL Creatinine (0.52-1.04) mg/dL Est GFR (CKD-EPI)AfAm (>60 ml/min/1.73 sqM) Est GFR (CKD-EPI)NonAf (>60 ml/min/1.73 sqM) Glucose (74-99) mg/dL Plasma Lactic Acid Reggie 0.9 (0.7-2.0) mmol/L Calcium (8.4-10.2) mg/dL Total Bilirubin (0.2-1.3) mg/dL AST (14-36) U/L ALT (4-34) U/L Alkaline Phosphatase (38-126) U/L Total Protein (6.3-8.2) g/dL Albumin (3.5-5.0) g/dL Amylase (30-110) U/L Lipase (23-300) U/L HCG, Qual Not Detected Acetone, Qual (Negative) Influenza Type A (PCR) Not Detected (Not Detectd) Influenza Type B (PCR) Not Detected (Not Detectd) RSV (PCR) Not Detected (Not Detectd) SARS-CoV-2 (PCR) Not Detected (Not Detectd) Disposition Clinical Impression: [id number] kidney injury, Splenic infarct, Metabolic acidosis, Dehydration Disposition: ADMITTED IP TO THIS [facility] Condition: Poor Time of Disposition: 13:23
[2024-04-25] MEDS: HYDROmorphone 0.5 MG/0.5 ML SYRINGE IVP STA ×2 (10:46→12:35)
[2024-04-25] MEDS: SODIUM CHLORIDE 0.9% 1,000 ML IV ONE (10:46)
[2024-04-25] MEDS: ONDANSETRON 4 MG/2 ML VIAL IVP STA (10:47)
[2024-04-25 11:15] LABS: VBG PH 7.26 (7.31-7.41)
[2024-04-25 11:16] LABS: Basophils % (A) 0 %; Eosinophils # (A) 0.1 k/uL (0-0.7); Eosinophils % (A) 1 %; HCT 38.9 % (34.0-46.0); Hypochromasia Moderate; Lymphocytes # (A) 4.1 k/uL (1.0-4.8); Lymphocytes % (A) 33 %; MCH 27.8 pg (25.0-35.0); MCHC 30.8 g/dL (31.0-37.0); MCV 90.3 fL (80.0-100.0); Mean Platelet Volume 7.5; Monocytes # (A) 0.8 k/uL (0-1.0); Monocytes % (A) 6 %; Neutrophils # (A) 7.2 k/uL (1.3-7.7); Neutrophils % (A) 58 %; Platelet Count 421 k/uL (150-450); RBC 4.31 m/uL (3.80-5.40); RDW 14.2 % (11.5-15.5); WBC 12.4 k/uL (3.8-10.6)
[2024-04-25] MEDS: HYDROmorphone 1 MG/ML 1 ML SYRINGE IVP STA (11:21)
[2024-04-25 11:45] LABS: Influenza A Not Detected (Not Detectd); Influenza B Not Detected (Not Detectd); RSV Not Detected (Not Detectd)
[2024-04-25 11:56] LABS: ALT 23 U/L (4-34); AST 18 U/L (14-36); African American GFR (CKD) 24 (>60 ml/min/1.73 sqM); Albumin 2.3 g/dL (3.5-5.0); Alkaline Phosphatase 151 U/L (38-126); Amylase 31 U/L (30-110); Anion Gap 4 mmol/L; Blood Urea Nitrogen 40 mg/dL (7-17); Calcium 8.4 mg/dL (8.4-10.2); Carbon Dioxide 19 mmol/L (22-30); Chloride 111 mmol/L (98-107); Glucose 168 mg/dL (74-99); Lipase 37 U/L (23-300); Non-African American GFR(CKD) 20 (>60 ml/min/1.73 sqM); Potassium 5.4 mmol/L (3.5-5.1); Sodium 134 mmol/L (137-145); Total Bilirubin 0.4 mg/dL (0.2-1.3); Total Protein 5.3 g/dL (6.3-8.2)
--- NOTE | 2024-04-25 12:32 | CT ---
EXAMINATION TYPE: CT abdomen pelvis wo con CT DLP: 818.6 mGycm, Automated exposure control for dose reduction was used. DATE OF EXAM: 04/25/2024 12:22 PM COMPARISON: Renal ultrasound 10/06/2022 CLINICAL INDICATION:Female, 33 years old with history of left side pain; Left sided pain TECHNIQUE: Standard CT of the abdomen and pelvis without IV or oral contrast. Lack of IV or oral co ntrast limits evaluation of solid and hollow organ viscera. Coronal and sagittal reformats were perfo rmed. FINDINGS: LOWER CHEST: Minimal left lower lobe dependent subsegmental atelectasis is noted. Trace anterior clay cardial effusion. ABDOMEN LIVER: Unremarkable noncontrast appearance. GALLBLADDER AND BILE DUCTS: Unremarkable noncontrast appearance. PANCREAS: Unremarkable noncontrast appearance. SPLEEN: Region of low attenuation within the inferior spleen with trace fluid. ADRENAL GLANDS: Unremarkable noncontrast appearance.. KIDNEYS AND URETERS: No evidence of hydronephrosis or renal calculus. PELVIS BLADDER: Unremarkable noncontrast appearance. REPRODUCTIVE: IUD is demonstrated within the uterus. ABDOMEN & PELVIS STOMACH AND BOWEL: Stomach and duodenum are unremarkable. No focal bowel wall thickening or surroundi ng inflammatory changes. The appendix is within normal limits. No evidence of bowel obstruction. PERITONEUM: No evidence of pneumoperitoneum. Trace free fluid in the pelvis. VASCULATURE: Mild atherosclerotic calcifications are present throughout the abdominal aorta and its b ranches. No evidence of aortic aneurysm. Mild calcification of the splenic artery. MUSCULOSKELETAL: No acute osseous abnormalities. Multilevel small Schmorl's nodes. LYMPH NODES: No gross evidence for lymphadenopathy. SOFT TISSUE/ABDOMINAL WALL: Diffuse anasarca which is most prominent within the back soft tissues. IMPRESSION: Hypodense region involving the inferior spleen with some trace fluid. Could represent a splenic lacer ation versus infarct. Evaluation is limited due to lack of intravenous contrast. Correlate with clini thad history. [facility], , 04/25/2024 12:29 PM
[2024-04-25] MEDS: SODIUM CHLORIDE 0.9% 1,000 ML IV SCH (12:35)
[2024-04-25] MEDS ORDERED: ONDANSETRON 4 MG/2 ML VIAL IVP PRN (13:23)
[2024-04-25] MEDS ORDERED: NALOXONE 0.4 MG/ML 1 ML VIAL IV PRN (13:23)
--- NOTE | 2024-04-25 14:31 | US ---
EXAMINATION TYPE: US abdomen limited DATE OF EXAM: 04/25/2024 COMPARISON: CT: Today CLINICAL INDICATION: Female, 33 years old with history of Left-sided pain, abnormal CT, assess spleen ; abnormal spleen on CT TECHNIQUE: Multiple sonographic images of the left upper quadrant are obtained. FINDINGS: EXAM MEASUREMENTS: Spleen: 13.1 cm Left Kidney: 14.0 x 5.8 x 6.0 cm WEIGHT SHIFTER NOTES: 1. Spleen: heterogeneous and measuring upper limits of normal 2. Left Kidney: appears wnl Left kidney appears within normal limits without evidence for hydronephrosis, nephrolithiasis, or sha dowing calculus. Spleen is heterogenous and at the upper limits of normal for size. No definitive foc al lesion or surrounding fluid identified. IMPRESSION: No ultrasound evidence for abnormality corresponding to CT earlier today. [facility], , 04/25/2024 2:28 PM
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
[2024-04-25 15:45] LABS: HCT 38.1 % (34.0-46.0); HGB 11.3 gm/dL (11.4-16.0); MCV 92.2 fL (80.0-100.0); RBC 4.13 m/uL (3.80-5.40); WBC 13.1 k/uL (3.8-10.6)
[2024-04-25 15:46] LABS: MCH 27.4 pg (25.0-35.0); MCHC 29.7 g/dL (31.0-37.0); Platelet Count 394 k/uL (150-450); RDW 14.2 % (11.5-15.5)
[2024-04-25 17:20] LABS: Glucose,Whole Blood 62 mg/dL (70-110)
[2024-04-25] MEDS: HYDROmorphone 0.5 MG/0.5 ML SYRINGE IVP PRN (21:03)
[2024-04-26 06:22] LABS: Glucose,Whole Blood 71 mg/dL (70-110)
[2024-04-26 07:33] LABS: Amorphous Sediment,Urine Rare /hpf; Appearance,Urine Cloudy (Clear); Bilirubin,Urine Negative (Negative); Blood,Urine Small (Negative); Color,Urine Colorless; Glucose,Urine (UA) 2+ (Negative); Ketones,Urine Negative (Negative); Leukocyte Esterase,Urine Negative (Negative); Mucus,Urine Rare /hpf; Nitrite,Urine Negative (Negative); Protein,Urine 3+ (Negative); RBC,Urine 2 /hpf (0-5); Specific Gravity,Urine 1.015 (1.001-1.035); Squamous Epithelial Cell,Urine 3 /hpf (0-4); Urobilinogen,Urine <2.0 mg/dL (<2.0); WBC,Urine 5 /hpf (0-5)
--- NOTE | 2024-04-26 09:57 | P.NPCON ---
History of Present Illness - Reason for Consult acute renal failure - History of Present Illness Patient is a 32-year-old female with history of chronic kidney disease stage IIIb with baseline creatinine 1.6 to 1.8 mg/dL. Etiology is biopsy-proven diabetic kidney disease. Patient has type 1 diabetes since age 16. She is maintained on good dose of diuretics at home due to volume overload. Patient is admitted to the hospital with complaints left abdominal pain mostly in the upper abdomen for about 2 days now. Patient had nausea vomiting and diarrhea prior to that with low-grade temp. Boyfriend had flu recently. No complaints of cough or chest pain. CT of the abdomen showed hypodense area in the inferior region of the spleen with trace fluid, concern for clinic laceration versus infarct. There is concern that maybe her young daughter may have kicked her during sleep as she sleeps with her. Serum creatinine was 2.8 mg/dL. Patient is maintained on IV fluids. Repeat labs are not available from today. Previous creatinine 2.1 on 01/07/2024. No urinary symptoms Blood pressure is not low. Patient has been evaluated by general surgery and there are no plans for any surgical intervention. Past Medical History Past Medical History: Asthma, Diabetes Mellitus, GERD/Reflux, Hypertension, Renal Disease Additional Past Medical History / Comment(s): hx. hiatal hernia, diabetic- TYPE 1 chronic kidney disease-protein in urine , albumin, MIGRAINE HEADACHES, CHILDHOOD ASTHMA, neuropathy in feet and legs, diabetic neuropathy History of Any Multi-Drug Resistant Organisms: MRSA Date of last positivie culture/infection: 2009 MDRO Source:: abdomen left side Past Surgical History: Section Additional Past Surgical History / Comment(s): surgery on cervix for abnormal cells, surgery groin area for grown hairs. bilateral cataract surgery with implants, Past Anesthesia/Blood Transfusion Reactions: Motion Sickness Additional Past Anesthesia/Blood Transfusion Reaction / Comment(s): Pt has clausterphobia. Past Psychological History: ADD/ADHD, Anxiety, Depression Additional Psychological History / Comment(s): Pt resides with her parents and her 2 children ages 7 and 9 yrs. She is independent. She states her depression is stable at this time but states yesterday, 06/17/21, she did feet more depressed and had thoughts that she would be fine if she went to sleep and did not wake up. Pt denies suicidal thoughts/plans. Smoking Status: Former smoker Past Alcohol Use History: Occasional Additional Past Alcohol Use History / Comment(s): Pt started smoking in 2007 and quit in 2019 Past Drug Use History: None Reported Additional Drug Use History / Comment(s): edibles occasional- instructed to hold 24 hours prior to procedure. - Past Family History Mother Family Medical History: No Reported History, Thyroid Disorder Additional Family Medical History / Comment(s): gestational diabetes Father Family Medical History: No Reported History Additional Family Medical History / Comment(s): chrons disease Medications and Allergies Home Medications Medication Instructions Recorded Confirmed Type Insulin Aspart (For Pump) [NovoLOG 0.01 unit SQ-PUMP CONTINUOUS 11/08/17 04/25/24 History (For Pump)] Metoprolol Tartrate [Lopressor] 12.5 mg PO BID 07/10/22 04/25/24 History Cyclobenzaprine [Flexeril] 10 mg PO HS 10/06/22 04/25/24 History LORazepam [Ativan] 0.5 mg PO DAILY PRN 10/06/22 04/25/24 History Dextroamphetamine/Amphetamine 20 mg PO BID@0700,1300 01/05/23 04/25/24 History [Adderall] Cetirizine HCl [Zyrtec] 10 mg PO HS 04/25/24 04/25/24 History Ferrous Sulfate [Feosol] 325 mg PO Q2D 04/25/24 04/25/24 History Fluticasone Nasal [place] [Flonase 2 spray EA NOSTRIL DAILY PRN 04/25/24 04/25/24 History Nasal [place]] Loperamide [Imodium] 4 mg PO TID PRN 04/25/24 04/25/24 History Losartan [Cozaar] 25 mg PO DAILY 04/25/24 04/25/24 History Omeprazole [PriLOSEC] 40 mg PO DAILY 04/25/24 04/25/24 History Ondansetron Odt [Zofran Odt] 4 mg PO Q12HR PRN 04/25/24 04/25/24 History Semaglutide [Ozempic] 0.25 mg SQ GONZALEZ@2100 04/25/24 04/25/24 History Torsemide [Demadex] 20 - 40 mg PO BID 04/25/24 04/25/24 History metOLazone [Zaroxolyn] 2.5 mg PO DAILY 04/25/24 04/25/24 History Allergies Allergy/AdvReac Type Severity Reaction Status Date / Time cephalexin [From Keflex] Allergy Swelling Verified 04/25/24 15:46 (tongue) midazolam [From Versed] AdvReac very Verified 04/25/24 15:46 anxious feeling Physical Exam Vitals: Vital Signs Temp Pulse Pulse Resp BP BP Pulse Ox 04/26/24 07:36 99.5 F 104 H 16 149/92 100 04/26/24 02:23 97.9 F 99 141/91 100 04/25/24 17:00 93 16 149/93 98 04/25/24 11:47 97 16 112/82 98 Intake and Output 04/25/24 04/26/24 04/26/24 22:59 06:59 14:59 Other: # Voids 2 Weight 90.718 kg Patient is awake, comfortable, no acute distress Alert oriented x 3 Examination of the heart S1 and S2 Examination of the lungs bilateral breath sounds are heard Abdomen is soft, tenderness noted in the left upper abdomen Examination lower extremities shows trace edema bilaterally SCIENTIFIC DIRECTOR exam grossly intact Results - Lab Results Most recent lab results Calcium 8.4 mg/dL (8.4-10.2) 04/25/24 10:46 04/25/24 14:16 04/25/24 10:46 Assessment and Plan Assessment: 1. Acute kidney injury associated with volume depletion, maintained on IV fluids UA shows 3+ protein and trace blood which is not new. No evidence of obstruction noted on imaging 2. Left upper abdominal pain associated with possible splenic injury/laceration. No plans for surgical intervention 3. Chronic kidney disease stage IIIb with baseline creatinine 1.6 to 1.8 mg/dL secondary to biopsy-proven diabetic kidney disease. Most recent creatinine was 2.1 in December 2023 4. Type 1 diabetes 5. Recent viral infection with nausea vomiting diarrhea and low-grade fever Plan: Continue with IV fluids Repeat labs today Resume Cozaar Hold diuretics for now Repeat labs in a.m. Thank you for the consultation. We will continue to follow the patient with you during her hospitalization.
[2024-04-26] MEDS: METOPROLOL TARTRATE 12.5 MG TAB PO SCH ×2 (10:24→13:21)
[2024-04-26] MEDS ORDERED: ONDANSETRON ODT 4 MG TAB PO PRN (13:06)
--- NOTE | 2024-04-26 13:39 | P.PN ---
Subjective Progress Note Date: 04/26/24 CHIEF COMPLAINT: Abdominal pain HISTORY OF PRESENT ILLNESS: Patient reports overall she is feeling better. She does continue to have some left upper quadrant abdominal pain. She is tolerating diet. She denies any nausea or vomiting. Afebrile. No new labs for today. Heterophile antibody negative PHYSICAL EXAM: VITAL SIGNS: Reviewed GENERAL: Well-developed in no acute distress. HEENT: No sclera icterus. Extraocular movements grossly intact. Moist buccal mucosa. Head is atraumatic, normocephalic. Hears conversational speech. No nasal drainage. NECK: Supple without lymphadenopathy. CHEST: Non-labored respirations and equal bilateral excursions. CARDIOVASCULAR: Palpable 2+ radial pulses. ABDOMEN: Soft. Nondistended. Mild Tenderness palpation left upper quadrant MUSCULOSKELETAL: No clubbing or cyanosis. NEUROLOGIC: No focal or lateralizing signs. Cranial nerves II through XII grossly intact. PSYCH: Appropriate affect. Alert and oriented to person, place and time. SKIN: Well perfused. Good skin turgor. ASSESSMENT: 1. Left upper quadrant abdominal pain. Hypodense region involving the inferior spleen with some trace fluid. Possible splenic laceration versus infarct noted on CT scan. Abdominal ultrasound reported no evidence of lesion or fluid collection. Spleen measuring upper limit of normal 2. Nausea, vomiting, diarrhea and cough 3. Acute on chronic renal failure 4. Type 1 insulin-dependent diabetes mellitus, on insulin pump PLAN: -No surgical intervention planned -Patient can be discharge from surgical standpoint when medically cleared Physician Gas Singer note has been reviewed by physician. Signing provider agrees with the documented findings, assessment, and plan of care. Objective - Vital Signs Vital signs: Vital Signs Temp 99.5 F 04/26/24 07:36 Pulse 104 H 04/26/24 07:36 Resp 16 04/26/24 07:36 BP 149/92 04/26/24 07:36 Pulse Ox 100 04/26/24 07:36 FiO2 Intake & Output 04/25/24 04/26/24 04/26/24 18:59 06:59 18:59 Weight 90.718 kg 90.718 kg Other: # Voids 2 - Labs CBC & Chem 7: 04/25/24 14:16 04/25/24 10:46 Labs: Abnormal Lab Results - Last 24 Hours (Table) 04/25/24 04/25/24 04/25/24 Range/Units 10:28 10:46 10:46 WBC 12.4 H (3.8-10.6) k/uL Hgb (11.4-16.0) gm/dL MCHC 30.8 L (31.0-37.0) g/dL VBG pH (7.31-7.41) VBG HCO3 (24-28) mmol/L Sodium 134 L (137-145) mmol/L Potassium 5.4 H (3.5-5.1) mmol/L Chloride 111 H (98-107) mmol/L Carbon Dioxide 19 L (22-30) mmol/L BUN 40 H (7-17) mg/dL Creatinine 2.88 H (0.52-1.04) mg/dL Glucose 168 H (74-99) mg/dL POC Glucose (mg/dL) (70-110) mg/dL Alkaline Phosphatase 151 H (38-126) U/L Total Protein 5.3 L (6.3-8.2) g/dL Albumin 2.3 L (3.5-5.0) g/dL Urine Appearance Cloudy H (Clear) Urine Protein 3+ H (Negative) Urine Glucose (UA) 2+ H (Negative) Urine Blood Small H (Negative) Amorphous Sediment Rare H (None) /hpf Urine Mucus Rare H (None) /hpf 04/25/24 04/25/24 04/25/24 Range/Units 10:46 14:16 17:18 WBC 13.1 H (3.8-10.6) k/uL Hgb 11.3 L (11.4-16.0) gm/dL MCHC 29.7 L (31.0-37.0) g/dL VBG pH 7.26 L (7.31-7.41) VBG HCO3 19 L (24-28) mmol/L Sodium (137-145) mmol/L Potassium (3.5-5.1) mmol/L Chloride (98-107) mmol/L Carbon Dioxide (22-30) mmol/L BUN (7-17) mg/dL Creatinine (0.52-1.04) mg/dL Glucose (74-99) mg/dL POC Glucose (mg/dL) 62 L (70-110) mg/dL Alkaline Phosphatase (38-126) U/L Total Protein (6.3-8.2) g/dL Albumin (3.5-5.0) g/dL Urine Appearance (Clear) Urine Protein (Negative) Urine Glucose (UA) (Negative) Urine Blood (Negative) Amorphous Sediment (None) /hpf Urine Mucus (None) /hpf
--- NOTE | 2024-04-26 14:24 | P.HPIM ---
History of Present Illness 28-year-old female came in with complaints of left upper quadrant abdominal pain patient had a CT of the abdomen which showed splenic laceration patient is hemoglobin fairly remained stable only gone down from 12-11.3 evaluated by [facility] surgery they cleared for discharge patient is still having pain. Patient has history of chronic kidney disease stage IV with baseline creatinine of around 2 present creatinine about 2.88 patient is on diuretics as well as losartan as an outpatient diuretics are being held losartan is being held patient is receiving IV fluids patient has type 2 diabetes mellitus and history of biopsy confirmed diabetic nephropathy. Patient serum potassium was 5.4. REVIEW OF SYSTEMS: All other systems are negative except those mentioned in the HPI PHYSICAL EXAMINATION: GENERAL: The patient is alert and oriented x3, not in any acute distress. Well developed, well nourished. HEENT: Pupils are round and equally reacting to light. EOMI. No scleral icterus. No conjunctival pallor. Normocephalic, atraumatic. No pharyngeal erythema. No thyromegaly. CARDIOVASCULAR: S1 and S2 present. No murmurs, rubs, or gallops. PULMONARY: Chest is clear to auscultation, no wheezing or crackles. ABDOMEN: Tenderness in the left upper quadrant MUSCULOSKELETAL: No joint swelling or deformity. EXTREMITIES: No cyanosis, clubbing, or pedal edema. NEUROLOGICAL: Gross neurological examination did not reveal any focal deficits. SKIN: No rashes. Assessment and plan -Splenic laceration evaluated by general surgery cleared for discharge patient will be discharged on [place] if her kidney function improves -Acute renal failure on chronic kidney disease stage IV diuretics are being held losartan is being held patient is receiving IV fluids. Patient will not continue her diuretics and losartan upon discharge -Hypokalemia secondary to kidney failure and losartan losartan is being held type 2 diabetes mellitus continue with insulin pump -Leukocytosis secondary to assessment #1 -Hypertension -Asthma without any acute exacerbation DVT prophylaxis: Early ambulation Past Medical History Past Medical History: Asthma, Diabetes Mellitus, GERD/Reflux, Hypertension, Renal Disease Additional Past Medical History / Comment(s): hx. hiatal hernia, diabetic- TYPE 1 chronic kidney disease-protein in urine , albumin, MIGRAINE HEADACHES, CHILDHOOD ASTHMA, neuropathy in feet and legs, diabetic neuropathy History of Any Multi-Drug Resistant Organisms: MRSA Date of last positivie culture/infection: 2009 MDRO Source:: abdomen left side Past Surgical History: Section Additional Past Surgical History / Comment(s): surgery on cervix for abnormal cells, surgery groin area for grown hairs. bilateral cataract surgery with implants, Past Anesthesia/Blood Transfusion Reactions: Motion Sickness Additional Past Anesthesia/Blood Transfusion Reaction / Comment(s): Pt has clausterphobia. Past Psychological History: ADD/ADHD, Anxiety, Depression Additional Psychological History / Comment(s): Pt resides with her parents and her 2 children ages 7 and 9 yrs. She is independent. She states her depression is stable at this time but states yesterday, 06/17/21, she did feet more depressed and had thoughts that she would be fine if she went to sleep and did not wake up. Pt denies suicidal thoughts/plans. Smoking Status: Former smoker Past Alcohol Use History: Occasional Additional Past Alcohol Use History / Comment(s): Pt started smoking in 2007 and quit in 2019 Past Drug Use History: None Reported Additional Drug Use History / Comment(s): edibles occasional- instructed to hold 24 hours prior to procedure. - Past Family History Mother Family Medical History: No Reported History, Thyroid Disorder Additional Family Medical History / Comment(s): gestational diabetes Father Family Medical History: No Reported History Additional Family Medical History / Comment(s): chrons disease Medications and Allergies Home Medications Medication Instructions Recorded Confirmed Type Insulin Aspart (For Pump) [NovoLOG 0.01 unit SQ-PUMP CONTINUOUS 11/08/17 04/25/24 History (For Pump)] Metoprolol Tartrate [Lopressor] 12.5 mg PO BID 07/10/22 04/25/24 History Cyclobenzaprine [Flexeril] 10 mg PO HS 10/06/22 04/25/24 History LORazepam [Ativan] 0.5 mg PO DAILY PRN 10/06/22 04/25/24 History Dextroamphetamine/Amphetamine 20 mg PO BID@0700,1300 01/05/23 04/25/24 History [Adderall] Cetirizine HCl [Zyrtec] 10 mg PO HS 04/25/24 04/25/24 History Ferrous Sulfate [Feosol] 325 mg PO Q2D 04/25/24 04/25/24 History Fluticasone Nasal [place] [Flonase 2 spray EA NOSTRIL DAILY PRN 04/25/24 04/25/24 History Nasal [place]] Loperamide [Imodium] 4 mg PO TID PRN 04/25/24 04/25/24 History Losartan [Cozaar] 25 mg PO DAILY 04/25/24 04/25/24 History Omeprazole [PriLOSEC] 40 mg PO DAILY 04/25/24 04/25/24 History Ondansetron Odt [Zofran Odt] 4 mg PO Q12HR PRN 04/25/24 04/25/24 History Semaglutide [Ozempic] 0.25 mg SQ GONZALEZ@2100 04/25/24 04/25/24 History Torsemide [Demadex] 20 - 40 mg PO BID 04/25/24 04/25/24 History metOLazone [Zaroxolyn] 2.5 mg PO DAILY 04/25/24 04/25/24 History Allergies Allergy/AdvReac Type Severity Reaction Status Date / Time cephalexin [From Keflex] Allergy Swelling Verified 04/25/24 15:46 (tongue) midazolam [From Versed] AdvReac very Verified 04/25/24 15:46 anxious feeling Physical Exam Vitals: Vital Signs Temp Pulse Pulse Resp BP BP Pulse Ox 04/26/24 07:36 99.5 F 104 H 16 149/92 100 04/26/24 02:23 97.9 F 99 141/91 100 04/25/24 17:00 93 16 149/93 98 Intake and Output 04/25/24 04/26/24 04/26/24 22:59 06:59 14:59 Other: # Voids 2 Weight 90.718 kg Results CBC & Chem 7: 04/25/24 14:16 04/25/24 10:46 Labs: Abnormal Lab Results - Last 24 Hours (Table) 04/25/24 04/25/24 04/25/24 Range/Units 10:28 14:16 17:18 WBC 13.1 H (3.8-10.6) k/uL Hgb 11.3 L (11.4-16.0) gm/dL MCHC 29.7 L (31.0-37.0) g/dL POC Glucose (mg/dL) 62 L (70-110) mg/dL Urine Appearance Cloudy H (Clear) Urine Protein 3+ H (Negative) Urine Glucose (UA) 2+ H (Negative) Urine Blood Small H (Negative) Amorphous Sediment Rare H (None) /hpf Urine Mucus Rare H (None) /hpf Thrombosis Risk Factor Assmnt - Choose All That Apply Any of the Below Risk Factors Present?: Yes Each Factor Represents 1 point: Obesity (BMI >25) Thrombosis Risk Factor Assessment Total Risk Factor Score: 1 Thrombosis Risk Factor Assessment Level: Low Risk
[2024-04-26 14:49] LABS: African American GFR (CKD) 26 (>60 ml/min/1.73 sqM); Anion Gap 2 mmol/L; Blood Urea Nitrogen 39 mg/dL (7-17); Calcium 8.3 mg/dL (8.4-10.2); Carbon Dioxide 20 mmol/L (22-30); Chloride 112 mmol/L (98-107); Glucose 102 mg/dL (74-99); Non-African American GFR(CKD) 23 (>60 ml/min/1.73 sqM); Potassium 5.2 mmol/L (3.5-5.1); Sodium 134 mmol/L (137-145)
[2024-04-26 16:54] LABS: Glucose,Whole Blood 85 mg/dL (70-110)
[2024-04-26 20:43] LABS: Glucose,Whole Blood 97 mg/dL (70-110)
[2024-04-27 06:10] LABS: Glucose,Whole Blood 119 mg/dL (70-110)
[2024-04-27 08:24] VITALS: TEMP 98.5
[2024-04-27 10:23] LABS: Basophils # (A) 0.1 k/uL (0-0.2); Basophils % (A) 1 %; Eosinophils # (A) 0.1 k/uL (0-0.7); Eosinophils % (A) 2 %; HCT 36.8 % (34.0-46.0); HGB 11.2 gm/dL (11.4-16.0); Hypochromasia Slight; Lymphocytes # (A) 4.1 k/uL (1.0-4.8); Lymphocytes % (A) 43 %; MCH 27.4 pg (25.0-35.0); MCHC 30.3 g/dL (31.0-37.0); MCV 90.4 fL (80.0-100.0); Mean Platelet Volume 7.6; Monocytes # (A) 0.7 k/uL (0-1.0); Monocytes % (A) 7 %; Neutrophils # (A) 4.5 k/uL (1.3-7.7); Neutrophils % (A) 47 %; Platelet Count 432 k/uL (150-450); RBC 4.07 m/uL (3.80-5.40); RDW 14.4 % (11.5-15.5); WBC 9.6 k/uL (3.8-10.6)
[2024-04-27 10:42] LABS: ALT 57 U/L (4-34); AST 59 U/L (14-36); African American GFR (CKD) 28 (>60 ml/min/1.73 sqM); Albumin 2.1 g/dL (3.5-5.0); Alkaline Phosphatase 234 U/L (38-126); Anion Gap 3 mmol/L; Blood Urea Nitrogen 33 mg/dL (7-17); Calcium 8.4 mg/dL (8.4-10.2); Carbon Dioxide 19 mmol/L (22-30); Chloride 113 mmol/L (98-107); Glucose 61 mg/dL (74-99); Non-African American GFR(CKD) 25 (>60 ml/min/1.73 sqM); Potassium 5.1 mmol/L (3.5-5.1); Sodium 135 mmol/L (137-145); Total Bilirubin 0.2 mg/dL (0.2-1.3); Total Protein 5.1 g/dL (6.3-8.2)
--- NOTE | 2024-04-27 11:00 | P.PN ---
Subjective Patient is seen for follow-up for chronic kidney disease and acute kidney injury. Pain is persistent but slightly improved from yesterday. Blood pressure remains elevated. Patient is maintained on IV fluids. She is complaining of increased swelling in her legs. No complaints of shortness of breath. Serum creatinine decreased to 2.6 today. Potassium at 5.2. Losartan is on hold. Objective - Vital Signs Vital signs: Vital Signs Temp 98.5 F 04/27/24 08:00 Pulse 97 04/27/24 08:00 Resp 18 04/27/24 08:00 BP 179/121 04/27/24 08:00 Pulse Ox 99 04/27/24 08:00 FiO2 Intake & Output 04/26/24 04/27/24 04/27/24 18:59 06:59 18:59 Intake Total 1850 128 Balance 1850 128 Intake: IV 10 Invasive Line 2 10 Intake, IV Titration 1100 Amount Sodium Chloride 0.9% 1, 1100 000 ml @ 100 mls/hr IV . Q10H ANDRE Rx#:[id number] Oral 750 118 Other: Voiding Method Toilet # Voids 2 3 # Bowel Movements 0 - Exam Patient is awake, comfortable, no acute distress Alert oriented x 3 Examination of the heart S1 and S2 Examination of the lungs bilateral breath sounds are heard Abdomen is soft, tenderness noted in the left upper abdomen Examination lower extremities shows 1+ edema bilaterally TALLOW PUMPER exam grossly intact - Labs CBC & Chem 7: 04/27/24 09:48 04/27/24 09:48 Labs: Abnormal Lab Results - Last 24 Hours (Table) 04/26/24 04/27/24 04/27/24 Range/Units 13:58 06:09 09:48 Hgb 11.2 L (11.4-16.0) gm/dL MCHC 30.3 L (31.0-37.0) g/dL Sodium 134 L (137-145) mmol/L Potassium 5.2 H (3.5-5.1) mmol/L Chloride 112 H (98-107) mmol/L Carbon Dioxide 20 L (22-30) mmol/L BUN 39 H (7-17) mg/dL Creatinine 2.63 H (0.52-1.04) mg/dL Glucose 102 H (74-99) mg/dL POC Glucose (mg/dL) 119 H (70-110) mg/dL Calcium 8.3 L (8.4-10.2) mg/dL AST (14-36) U/L ALT (4-34) U/L Alkaline Phosphatase (38-126) U/L Total Protein (6.3-8.2) g/dL Albumin (3.5-5.0) g/dL 04/27/24 Range/Units 09:48 Hgb (11.4-16.0) gm/dL MCHC (31.0-37.0) g/dL Sodium 135 L (137-145) mmol/L Potassium (3.5-5.1) mmol/L Chloride 113 H (98-107) mmol/L Carbon Dioxide 19 L (22-30) mmol/L BUN 33 H (7-17) mg/dL Creatinine 2.46 H (0.52-1.04) mg/dL Glucose 61 L (74-99) mg/dL POC Glucose (mg/dL) (70-110) mg/dL Calcium (8.4-10.2) mg/dL AST 59 H (14-36) U/L ALT 57 H (4-34) U/L Alkaline Phosphatase 234 H (38-126) U/L Total Protein 5.1 L (6.3-8.2) g/dL Albumin 2.1 L (3.5-5.0) g/dL Assessment and Plan Assessment: 1. Acute kidney injury associated with volume depletion, maintained on IV fluids UA shows 3+ protein and trace blood which is not new. No evidence of obstruction noted on imaging 2. Left upper abdominal pain associated with possible splenic injury/laceration. No plans for surgical intervention 3. Chronic kidney disease stage IIIb with baseline creatinine 1.6 to 1.8 mg/dL secondary to biopsy-proven diabetic kidney disease. Most recent creatinine was 2.1 in December 2023 4. Type 1 diabetes 5. Recent viral infection with nausea vomiting diarrhea and low-grade fever 6. Mild hyperkalemia associated with acute kidney injury, improved Plan: DC IV fluids Lasix IV x 1 Can resume home dose of diuretics tomorrow Resume Cozaar Stable for discharge from nephrology standpoint
[2024-04-27 11:04] LABS: Glucose,Whole Blood 93 mg/dL (70-110)
[2024-04-27] MEDS: FUROSEMIDE 10 MG/ML 4 ML VIAL IV STA (11:25)
[2024-04-27] MEDS: LOSARTAN 25 MG TAB PO SCH (11:25)
[2024-04-27] MEDS: VERAPAMIL SR 240 MG TABLET.ER PO SCH (14:04)
[2024-04-27 14:07] VITALS: PULSE 94; RESP 16
[2024-04-27 14:53] VITALS: BP 161/104
[2024-04-27] MEDS ORDERED: METOPROLOL TARTRATE 25 MG TAB PO SCH (21:00)
[2024-05-01] MEDS ORDERED: NON FORMULARY DRUG (Semaglutide [Ozempic] 0.25 MG/0.368 ML Pen.Injctr) SQ SCH (21:00)
--- NOTE | 2024-05-02 19:43 | P.DS ---
Providers Date of admission: 04/25/24 13:16 Expected date of discharge: 04/27/24 Attending physician: Agustin Agosto MD Consults: 04/25/24 13:23 Consult Physician Urgent Consulting Provider: Shirley Damon Consult Reason/Comments: Acute on chronic kidney disease Do you want consulting provider notified?: Yes Primary care physician: Mohit Curran Hospital Course: Final diagnosis -Splenic laceration, evaluated by general surgery recommending outpatient follow-up, no surgical intervention at this time -Acute renal failure on chronic kidney disease stage IV, secondary to losartan and diuretic use -Hypokalemia secondary to kidney failure and losartan, improving -type 2 diabetes mellitus, continue with insulin pump -Leukocytosis secondary to assessment #1 -Hypertension -Asthma without any acute exacerbation -DVT prophylaxis: Early ambulation -GI prophylaxis -Obesity with a BMI 30.4 -Full code Discharge disposition Patient is being discharged in a stable condition with guarded prognosis to home. Patient will follow-up with Dr. uCrran in the outpatient setting upon discharge. Patient is to continue with current medications and close outpatient follow-up with nephrology as scheduled. Total time taken is greater than 35 minutes. Hospital course This is a 33-year-old female who was recently admitted with hypertension, uncontrolled, continued ongoing peripheral edema with acute on chronic renal failure with chronic kidney disease being closely monitored. Patient also noted to have a splenic laceration and evaluated by general surgery with no plans of surgical intervention at this time and will follow-up outpatient. Patient also noted to have electrolyte abnormalities including potassium which has been replaced and improved. Patient does follow with nephrology outpatient closely and recommend to follow-up in the next week. Repeat labs ordered for outpatient and patient has been cleared for discharge. Please refer to other consultation notes for further HPI. Patient to continue elevating lower extremities while at rest and compression stockings and/or Andrae wraps to lower extremities as tolerated. Discharged home today. Currently no reports of chest pain, shortness of breath, or palpitations. Patient is afebrile. No reports of nausea or vomiting and patient is tolerating diet. Patient will be discharged home today. High risk for readmissions given significant comorbidities. Physical exam: Gen: This is a 33-year-old female who is awake, alert and oriented x 3, well- developed, well-nourished, obese HEENT: Head is atraumatic, normocephalic. Pupils equal, round. Sclerae is anicteric. NECK: Supple. No JVD. No lymphadenopathy. No thyromegaly. LUNGS: Clear to auscultation. No wheezes or rhonchi. No intercostal retractions. HEART: Regular rate and rhythm. No murmur. ABDOMEN: Soft. Bowel sounds are present. No masses. No tenderness. EXTREMITIES: No pedal edema. No calf tenderness. Bilateral lower extremity swelling noted, chronic, minimally improved NEUROLOGICAL: Patient is awake, alert and oriented x3. Cranial nerves 2 through 12 are grossly intact. Please refer to medication reconciliation sheet for a list of medications. The impression and plan of care has been dictated by Sonia White, Nurse Practitioner as directed. Dr. Danilo MD I have performed a history and examination and MDM of this patient, discussed the same with the dictator, and agree with the dictator's assessment and plan as written ,documented as a scribe. Based on total visit time, I have performed more than 50% of the visit. Patient Condition at Discharge: Fair Plan - Discharge Summary Discharge Rx Participant: No New Discharge Prescriptions: New Verapamil Sr [Isoptin Sr] 240 mg PO DAILY #30 tab HYDROcodone/APAP 5-325MG [[place] 5-325] 1 tab PO Q6HR PRN 3 Days #12 tab PRN Reason: Pain Continue Insulin Aspart (For Pump) [NovoLOG (For Pump)] 0.01 unit SQ-PUMP CONTINUOUS LORazepam [Ativan] 0.5 mg PO DAILY PRN PRN Reason: Anxiety Dextroamphetamine/Amphetamine [Adderall] 20 mg PO BID@0700,1300 Cetirizine HCl [Zyrtec] 10 mg PO HS Fluticasone Nasal [place] [Flonase Nasal [place]] 2 spray EA NOSTRIL DAILY PRN PRN Reason: Allergy Symptoms Omeprazole [PriLOSEC] 40 mg PO DAILY Ondansetron Odt [Zofran ODT] 4 mg PO Q12HR PRN PRN Reason: Nausea Torsemide [Demadex] 20 - 40 mg PO BID Cyclobenzaprine [Flexeril] 10 mg PO HS metOLazone [Zaroxolyn] 2.5 mg PO DAILY Semaglutide [Ozempic] 0.25 mg SQ GONZALEZ@2100 Loperamide [Imodium] 4 mg PO TID PRN PRN Reason: Diarrhea Ferrous Sulfate [Iron (65 MG Elemental)] 325 mg PO Q2D Discontinued Losartan [Cozaar] 25 mg PO DAILY Metoprolol Tartrate [Lopressor] 12.5 mg PO BID Discharge Medication List Insulin Aspart (For Pump) [NovoLOG (For Pump)] 0.01 unit SQ-PUMP CONTINUOUS 11/08/17 [History] Cyclobenzaprine [Flexeril] 10 mg PO HS 10/06/22 [History] LORazepam [Ativan] 0.5 mg PO DAILY PRN 10/06/22 [History] Dextroamphetamine/Amphetamine [Adderall] 20 mg PO BID@0700,1300 01/05/23 [History] Cetirizine HCl [Zyrtec] 10 mg PO HS 04/25/24 [History] Ferrous Sulfate [Iron (65 MG Elemental)] 325 mg PO Q2D 04/25/24 [History] Fluticasone Nasal [place] [Flonase Nasal [place]] 2 spray EA NOSTRIL DAILY PRN 04/25/24 [History] Loperamide [Imodium] 4 mg PO TID PRN 04/25/24 [History] Omeprazole [PriLOSEC] 40 mg PO DAILY 04/25/24 [History] Ondansetron Odt [Zofran ODT] 4 mg PO Q12HR PRN 04/25/24 [History] Semaglutide [Ozempic] 0.25 mg SQ GONZALEZ@2100 04/25/24 [History] Torsemide [Demadex] 20 - 40 mg PO BID 04/25/24 [History] metOLazone [Zaroxolyn] 2.5 mg PO DAILY 04/25/24 [History] HYDROcodone/APAP 5-325MG [[place] 5-325] 1 tab PO Q6HR PRN 3 Days #12 tab 04/27/24 [Rx] Verapamil Sr [Isoptin Sr] 240 mg PO DAILY #30 tab 04/27/24 [Rx] Follow up Appointment(s)/Referral(s): Mohit Curran MD [Primary Care Provider] - 05/04/24 2:00 pm Shirley Damon MD [STAFF PHYSICIAN] - 1 Week (office did not answer, please call and make appointment) Patient Instructions/Handouts: Dehydration (DC), Acute Kidney Injury (DC), Chronic Kidney Disease (DC), Splenic Infarction (GEN) Activity/Diet/Wound Care/Special Instructions: Activity limited to follow-up Follow-up with nephrology outpatient Follow-up with primary care provider on discharge Continue taking medications as prescribed Recommend monitoring blood pressure at least daily and keeping a diary of all readings for primary and nephrology follow-up Discharge Disposition: HOME SELF-CARE
== END 2024-04-27 15:49 | disposition home or self-care (01) ==
LOC: EC 08:30 → UNDOADMIN 13:16 → 4SSUR 13:16 → INTOOBSV 13:17 → 4SSUR 15:29 → 1SOBS 15:29 → UNDODISIN 04-27 15:49
PROVIDERS: ADMIT Internal Medicine; ATTEND Internal Medicine
DX: S36.039A Unspecified laceration of spleen, initial encounter (principal); N17.9 Acute kidney failure, unspecified; E86.0 Dehydration; I12.9 Hypertensive chronic kidney disease with stage 1 through stage 4 chronic kidney disease, or unspecified chronic kidney disease; N18.4 Chronic kidney disease, stage 4 (severe); E10.22 Type 1 diabetes mellitus with diabetic chronic kidney disease; E87.6 Hypokalemia; T46.5X5A Adverse effect of other antihypertensive drugs, initial encounter; E87.20 Acidosis, unspecified; B34.9 Viral infection, unspecified; E10.42 Type 1 diabetes mellitus with diabetic polyneuropathy; E86.9 Volume depletion, unspecified; J45.909 Unspecified asthma, uncomplicated; E87.5 Hyperkalemia; F32.A Depression, unspecified; Z68.30 Body mass index [BMI] 30.0-30.9, adult; E66.9 Obesity, unspecified; Z96.41 Presence of insulin pump (external) (internal); Z79.4 Long term (current) use of insulin; Z79.899 Other long term (current) drug therapy; Z88.1 Allergy status to other antibiotic agents; Z88.4 Allergy status to anesthetic agent; Z87.891 Personal history of nicotine dependence; Z11.52 Encounter for screening for COVID-19; Z11.59 Encounter for screening for other viral diseases; Z98.891 History of uterine scar from previous surgery
CPT/HCPCS: 96361 ×3; 96375 ×2; 96376 ×4; 96374; 99285; 36415; 80053 ×2; 80048; 82150; 82803; 82009; 83605; 83690; 83735; 85025 ×2; 86308; 81001; 84703; 87636; 76705; 74176; G0378 ×4; J1940; J2405; J1171 ×4

== ENCOUNTER 2024-06-07 21:18 | Inpatient (IN) | payer MEDICARE ==
--- NOTE | 2024-06-07 21:28 | ED ---
Recheck HPI - General Chief Complaint: Recheck/Abnormal Lab/Rx Stated Complaint: Abnormal Labs Time Seen by Provider: 06/07/24 21:25 Source: patient, RN notes reviewed, old records reviewed Mode of arrival: ambulatory Limitations: no limitations - History of Present Illness Initial Comments: This is a 33-year-old female asymptomatic presenting for abnormal outpatient labs history of renal disease coming in for severely elevated potassium. Patient recently had change in medication does admit to changing diabetic medications as well as changing her diuretic to a potassium sparing diuretic Complaint: abnormal lab (Elevated potassium) -: unknown Returns Today for: Called Because of Abnormal Lab/Test Symptoms Since Prior Visit: no new symptoms Context: called for abnormal lab result Associated Symptoms: none Treatments Prior to Arrival: other (0) - Related Data Home Medications Medication Instructions Recorded Confirmed Insulin Aspart (For Pump) [NovoLOG 0.01 unit SQ-PUMP CONTINUOUS 11/08/17 06/08/24 (For Pump)] Cyclobenzaprine [Flexeril] 10 mg PO HS 10/06/22 06/08/24 LORazepam [Ativan] 0.5 mg PO DAILY PRN 10/06/22 06/08/24 Dextroamphetamine/Amphetamine 20 mg PO BID@0700,1300 01/05/23 06/08/24 [Adderall] Cetirizine HCl [Zyrtec] 10 mg PO HS 04/25/24 06/08/24 Fluticasone Nasal [place] [Flonase 2 spray EA NOSTRIL DAILY PRN 04/25/24 06/08/24 Nasal [place]] Loperamide [Imodium] 4 mg PO TID PRN 04/25/24 06/08/24 Omeprazole [PriLOSEC] 40 mg PO DAILY 04/25/24 06/08/24 Ondansetron Odt [Zofran ODT] 4 mg PO Q12HR PRN 04/25/24 06/08/24 metOLazone [Zaroxolyn] 2.5 mg PO DAILY 04/25/24 06/08/24 Tirzepatide [Mounjaro] 2.5 mg SQ TU 06/08/24 06/08/24 Previous Rx's Medication Instructions Recorded Metoprolol Succinate (ER) [Toprol 25 mg PO DAILY #30 tab 06/11/24 XL] Sodium Bicarbonate Tab 650 mg PO BID #60 tab 06/11/24 Torsemide [Demadex] 40 mg PO DAILY #60 tab 06/11/24 Allergies Allergy/AdvReac Type Severity Reaction Status Date / Time cephalexin [From Keflex] Allergy Swelling Verified 06/08/24 09:00 (tongue) midazolam [From Versed] AdvReac very Verified 06/08/24 09:00 anxious feeling Review of Systems ROS Statement: Those systems with pertinent positive or pertinent negative responses have been documented in the HPI. ROS Other: All systems not noted in ROS Statement are negative. Past Medical History Past Medical History: Asthma, Diabetes Mellitus, GERD/Reflux, Hypertension, Renal Disease Additional Past Medical History / Comment(s): hx. hiatal hernia, diabetic- TYPE 1 chronic kidney disease-protein in urine , albumin, MIGRAINE HEADACHES, CHILDHOOD ASTHMA, neuropathy in feet and legs, diabetic neuropathy History of Any Multi-Drug Resistant Organisms: MRSA Date of last positivie culture/infection: 2009 MDRO Source:: abdomen left side Past Surgical History: Section Additional Past Surgical History / Comment(s): surgery on cervix for abnormal cells, surgery groin area for grown hairs. bilateral cataract surgery with implants, Past Anesthesia/Blood Transfusion Reactions: Motion Sickness Additional Past Anesthesia/Blood Transfusion Reaction / Comment(s): Pt has c lausterphobia. Past Psychological History: ADD/ADHD, Anxiety, Depression Smoking Status: Former smoker Past Alcohol Use History: Occasional Past Drug Use History: Marijuana - Past Family History Mother Family Medical History: No Reported History, Thyroid Disorder Additional Family Medical History / Comment(s): gestational diabetes Father Family Medical History: No Reported History Additional Family Medical History / Comment(s): chrons disease General Exam Limitations: no limitations General appearance: alert, in no apparent distress Head exam: Present: atraumatic, normocephalic, normal inspection Eye exam: Present: normal appearance, PERRL, EOMI. Absent: scleral icterus, conjunctival injection, periorbital swelling ENT exam: Present: normal exam, mucous membranes moist Neck exam: Present: normal inspection. Absent: tenderness, meningismus, lymphadenopathy Respiratory exam: Present: normal lung sounds bilaterally. Absent: respiratory distress, wheezes, rales, rhonchi, stridor Cardiovascular Exam: Present: tachycardia, irregular rhythm, normal heart sounds. Absent: systolic murmur, diastolic murmur, rubs, gallop, clicks GI/Abdominal exam: Present: soft, normal bowel sounds. Absent: distended, tenderness, guarding, rebound, rigid Extremities exam: Present: normal inspection, full ROM, normal capillary refill. Absent: tenderness, pedal edema, joint swelling, calf tenderness Back exam: Present: normal inspection Neurological exam: Present: alert, oriented X3, CN II-XII intact Psychiatric exam: Present: normal affect, normal mood Skin exam: Present: warm, dry, intact, normal color. Absent: rash Course Vital Signs 06/07/24 06/07/24 06/08/24 21:19 23:55 00:00 Temperature 98.3 F Pulse Rate 133 H 125 H Respiratory 19 19 Rate Blood Pressure 176/128 188/116 185/122 O2 Sat by Pulse 99 100 Oximetry 06/08/24 06/08/24 06/08/24 00:05 00:06 00:46 Temperature 98.3 F Pulse Rate 124 H 118 H 142 H Respiratory Rate Blood Pressure O2 Sat by Pulse 100 Oximetry 06/08/24 06/08/24 06/08/24 01:00 01:13 02:29 Temperature Pulse Rate 144 H 105 H 112 H Respiratory 24 17 17 Rate Blood Pressure 188/108 116/76 123/75 O2 Sat by Pulse 100 100 97 Oximetry - Reevaluation(s) Reevaluation #1: 06/07/24 22:25 Medical records reviewed patient was recently started on potassium sparing diuretic Reevaluation #2: 06/08/24 00:21 Patient has no and remains without complaint here in the ER heart rate is improved Reevaluation #3: 06/08/24 00:21 Patient informed of results questions answered Reevaluation #4: Was pt. sent in by a medical professional or institution (, PA, CAN TOP SETTER, urgent care, hospital, or detention...) When possible be specific @ -no Did you speak to anyone other than the patient for history (EMS, parent, family, police, friend...)? What history was obtained from this source @ -no Did you review nursing and triage notes (agree or disagree)? Why? @ -agree Are old charts reviewed (outside hosp., previous admission, EMS record, old EKG, old radiological studies, urgent care reports/EKG's, detention records)? Report findings @ -yes Differential Diagnosis (chest pain, altered mental status, abdominal pain women, abdominal pain men, vaginal bleeding, weakness, fever, dyspnea, syncope, headache, dizziness, GI bleed, back pain, seizure, CVA, palpatations, mental health, musculoskeletal)? @ -prior EKG interpreted by me (3pts min.). @ -yes X-rays interpreted by me (1pt min.). @ -no CT interpreted by me (1pt min.). @ -no U/S interpreted by me (1pt. min.). @ -no What testing was considered but not performed or refused? (CT, X-rays, U/S, labs)? Why? @ -none What meds were considered but not given or refused? Why? @ -none Did you discuss the management of the patient with other professionals (professionals i.e. , PA, CAN TOP SETTER, lab, RT, psych nurse, social human services assistants, automatic seamer, teacher, safety officer, major case detective)? Give summary @ -no Was smoking cessation discussed for >3mins.? @ -no Was critical care preformed (if so, how long)? @ -yes31 Were there social determinants of health that impacted care today? How? (Homelessness, low income, unemployed, alcoholism, drug addiction, transport ation, low edu. Level, literacy, decrease access to med. care, [facility], rehab)? @ -none Was there de-escalation of care discussed even if they declined (Discuss DNR or withdrawal of care, Hospice)? DNR status @ -no What co-morbidities impacted this encounter? (DM, HTN, Smoking, COPD, CAD, Cancer, CVA, ARF, Chemo, Hep., AIDS, mental health diagnosis, sleep apnea, morbid obesity)? @ -none Was patient admitted / discharged? Hospital course, mention meds given and route, prescriptions, significant lab abnormalities, going to OR and other pertinent info. @ - 33 Female to be admitted for severe hyperkalemia significant elevated potassium will admit for monitoring and treatment of elevated potassium Admitted Undiagnosed new problem with uncertain prognosis? @ -no Drug Therapy requiring intensive monitoring for toxicity (Heparin, Nitro, Insulin, Cardizem)? @ -no Were any procedures done? @ -no Diagnosis/symptom? @ -Hyperkalemia Acute, or Chronic, or Acute on Chronic? @ -Acute Uncomplicated (without systemic symptoms) or Complicated (systemic symptoms)? @ -Complicated Side effects of treatment? @ -no Exacerbation, Progression, or Severe Exacerbation? @ -exacerbation Poses a threat to life or bodily function? How? (Chest pain, USA, ID, pneumonia, PE, COPD, DKA, ARF, appy, cholecystitis, CVA, Diverticulitis, Homicidal, Suicidal, threat to staff... and all critical care pts) @ -yes severe electrode abnormalities - Consultations Consultation #1: Spoke with [facility] who agrees to admit this patient Medical Decision Making - Medical Decision Making 33 Female to be admitted for severe hyperkalemia significant elevated potassium will admit for monitoring and treatment of elevated potassium - Lab Data Result diagrams: 06/09/24 05:27 06/11/24 05:34 Lab Results 06/07/24 06/07/24 06/07/24 Range/Units 21:37 21:37 21:37 WBC 14.13 H (4.50-10.00) 10*3/uL RBC 4.59 (4.10-5.20) 10*6/uL Hgb 13.2 (12.0-15.0) g/dL Hct 40.1 (37.2-46.3) % MCV 87.4 (80.0-97.0) fL MCH 28.8 (27.0-32.0) pg MCHC 32.9 (32.0-37.0) g/dL Plt Count 463 H (140-440) 10*3/uL MPV 9.6 (9.5-12.2) fL Immature Gran % (Auto) 2.0 % Neutrophils % 54.6 % Lymphocytes % 35.5 % Monocytes % 6.4 % Eosinophils % 0.7 % Basophils % 0.8 % Immature Gran # 0.28 H (0.00-0.04) 10*3/uL Neutrophils # 7.72 H (1.80-7.70) 10*3/uL Lymphocytes # 5.02 H (0.90-5.00) 10*3/uL Monocytes # 0.90 (0.20-1.00) 10*3/uL Eosinophils # 0.10 (0.04-0.35) 10*3/uL Basophils # 0.11 H (0.00-0.10) 10*3/uL Manual Slide Review Performed RBC Morphology Normal PT (10.0-12.5) sec INR (<1.2) APTT (22.0-30.0) sec Sodium 131 L (137-145) mmol/L Potassium 7.3 H* (3.5-5.1) mmol/L Chloride 113 H (98-107) mmol/L Carbon Dioxide 13 L (22-30) mmol/L Anion Gap 5 mmol/L BUN 61 H (7-17) mg/dL Creatinine 3.43 H (0.52-1.04) mg/dL Est GFR (CKD-EPI)AfAm 19 (>60 ml/min/1.73 sqM) Est GFR (CKD-EPI)NonAf 16 (>60 ml/min/1.73 sqM) Glucose 132 H (74-99) mg/dL POC Glucose (mg/dL) (70-110) mg/dL POC Glu Insurance Verifier ID Plasma Lactic Acid Reggie 0.8 (0.7-2.0) mmol/L Calcium 9.2 (8.4-10.2) mg/dL Phosphorus 6.1 H (2.5-4.5) mg/dL Magnesium 1.8 (1.6-2.3) mg/dL Total Bilirubin 0.4 (0.2-1.3) mg/dL AST 35 (14-36) U/L ALT 33 (4-34) U/L Alkaline Phosphatase 150 H (38-126) U/L Troponin I (0.000-0.034) ng/mL Total Protein 5.9 L (6.3-8.2) g/dL Albumin 2.6 L (3.5-5.0) g/dL Acetone, Qual (Negative) 06/07/24 06/07/24 06/07/24 Range/Units 21:37 21:37 21:45 WBC (4.50-10.00) 10*3/uL RBC (4.10-5.20) 10*6/uL Hgb (12.0-15.0) g/dL Hct (37.2-46.3) % MCV (80.0-97.0) fL MCH (27.0-32.0) pg MCHC (32.0-37.0) g/dL Plt Count (140-440) 10*3/uL MPV (9.5-12.2) fL Immature Gran % (Auto) % Neutrophils % % Lymphocytes % % Monocytes % % Eosinophils % % Basophils % % Immature Gran # (0.00-0.04) 10*3/uL Neutrophils # (1.80-7.70) 10*3/uL Lymphocytes # (0.90-5.00) 10*3/uL Monocytes # (0.20-1.00) 10*3/uL Eosinophils # (0.04-0.35) 10*3/uL Basophils # (0.00-0.10) 10*3/uL Manual Slide Review RBC Morphology PT (10.0-12.5) sec INR (<1.2) APTT (22.0-30.0) sec Sodium (137-145) mmol/L Potassium (3.5-5.1) mmol/L Chloride (98-107) mmol/L Carbon Dioxide (22-30) mmol/L Anion Gap mmol/L BUN (7-17) mg/dL Creatinine (0.52-1.04) mg/dL Est GFR (CKD-EPI)AfAm (>60 ml/min/1.73 sqM) Est GFR (CKD-EPI)NonAf (>60 ml/min/1.73 sqM) Glucose (74-99) mg/dL POC Glucose (mg/dL) 124 H (70-110) mg/dL POC Glu Insurance Verifier ID Jolanta Cinthya Plasma Lactic Acid Reggie (0.7-2.0) mmol/L Calcium (8.4-10.2) mg/dL Phosphorus (2.5-4.5) mg/dL Magnesium (1.6-2.3) mg/dL Total Bilirubin (0.2-1.3) mg/dL AST (14-36) U/L ALT (4-34) U/L Alkaline Phosphatase (38-126) U/L Troponin I <0.012 (0.000-0.034) ng/mL Total Protein (6.3-8.2) g/dL Albumin (3.5-5.0) g/dL Acetone, Qual Negative (Negative) 06/07/24 Range/Units 22:30 WBC (4.50-10.00) 10*3/uL RBC (4.10-5.20) 10*6/uL Hgb (12.0-15.0) g/dL Hct (37.2-46.3) % MCV (80.0-97.0) fL MCH (27.0-32.0) pg MCHC (32.0-37.0) g/dL Plt Count (140-440) 10*3/uL MPV (9.5-12.2) fL Immature Gran % (Auto) % Neutrophils % % Lymphocytes % % Monocytes % % Eosinophils % % Basophils % % Immature Gran # (0.00-0.04) 10*3/uL Neutrophils # (1.80-7.70) 10*3/uL Lymphocytes # (0.90-5.00) 10*3/uL Monocytes # (0.20-1.00) 10*3/uL Eosinophils # (0.04-0.35) 10*3/uL Basophils # (0.00-0.10) 10*3/uL Manual Slide Review RBC Morphology PT 9.8 L (10.0-12.5) sec INR 0.9 (<1.2) APTT 22.9 (22.0-30.0) sec Sodium (137-145) mmol/L Potassium (3.5-5.1) mmol/L Chloride (98-107) mmol/L Carbon Dioxide (22-30) mmol/L Anion Gap mmol/L BUN (7-17) mg/dL Creatinine (0.52-1.04) mg/dL Est GFR (CKD-EPI)AfAm (>60 ml/min/1.73 sqM) Est GFR (CKD-EPI)NonAf (>60 ml/min/1.73 sqM) Glucose (74-99) mg/dL POC Glucose (mg/dL) (70-110) mg/dL POC Glu Insurance Verifier ID Plasma Lactic Acid Reggie (0.7-2.0) mmol/L Calcium (8.4-10.2) mg/dL Phosphorus (2.5-4.5) mg/dL Magnesium (1.6-2.3) mg/dL Total Bilirubin (0.2-1.3) mg/dL AST (14-36) U/L ALT (4-34) U/L Alkaline Phosphatase (38-126) U/L Troponin I (0.000-0.034) ng/mL Total Protein (6.3-8.2) g/dL Albumin (3.5-5.0) g/dL Acetone, Qual (Negative) - EKG Data -: EKG Interpreted by Me (EKG is a flutter 131 QRS 96 QTc 360) When compared to previous EKG there are: no significant change (No Significant peaked T waves) Critical Care Time Critical Care Time: Yes Total Critical Care Time: 31 Disposition Clinical Impression: Hyperkalemia, Atrial fibrillation with RVR, Hypertension, [id number] kidney injury, Acute kidney injury, Type 1 diabetes mellitus, Diabetes Disposition: ADMITTED IP TO THIS HOSP Condition: Stable Is patient prescribed a controlled substance at d/c from ED?: No Time of Disposition: 23:55
[2024-06-07] MEDS: CALCIUM CHLORIDE 1 GM in SODIUM CHLORIDE 0.9% 50 ML IVPB ONE (21:40)
[2024-06-07 21:46] LABS: Glucose,Whole Blood 124 mg/dL (70-110)
[2024-06-07 22:20] LABS: ALT 33 U/L (4-34); AST 35 U/L (14-36); African American GFR (CKD) 19 (>60 ml/min/1.73 sqM); Albumin 2.6 g/dL (3.5-5.0); Alkaline Phosphatase 150 U/L (38-126); Anion Gap 5 mmol/L; Blood Urea Nitrogen 61 mg/dL (7-17); Calcium 9.2 mg/dL (8.4-10.2); Carbon Dioxide 13 mmol/L (22-30); Chloride 113 mmol/L (98-107); Glucose 132 mg/dL (74-99); Magnesium 1.8 mg/dL (1.6-2.3); Non-African American GFR(CKD) 16 (>60 ml/min/1.73 sqM); Phosphorus 6.1 mg/dL (2.5-4.5); Sodium 131 mmol/L (137-145); Total Bilirubin 0.4 mg/dL (0.2-1.3); Total Protein 5.9 g/dL (6.3-8.2)
[2024-06-07 22:22] LABS: Basophils # (A) 0.11 10*3/uL (0.00-0.10); Basophils % (A) 0.8 %; Eosinophils % (A) 0.7 %; HCT 40.1 % (37.2-46.3); HGB 13.2 g/dL (12.0-15.0); Lymphocytes # (A) 5.02 10*3/uL (0.90-5.00); Lymphocytes % (A) 35.5 %; MCH 28.8 pg (27.0-32.0); MCHC 32.9 g/dL (32.0-37.0); MCV 87.4 fL (80.0-97.0); Mean Platelet Volume 9.6 fL (9.5-12.2); Monocytes % (A) 6.4 %; Neutrophils # (A) 7.72 10*3/uL (1.80-7.70); Neutrophils % (A) 54.6 %; Platelet Count 463 10*3/uL (140-440); RBC 4.59 10*6/uL (4.10-5.20); RDW 15.4 % (11.5-14.5); WBC 14.13 10*3/uL (4.50-10.00)
[2024-06-07] MEDS: DEXTROSE 50% SYRINGE 50 ML IVP STA (22:32)
[2024-06-07] MEDS: SODIUM BICARB 8.4% 50 ML SYR (1 MEQ/ML) IV STA (22:33)
[2024-06-07] MEDS: INSULIN REGULAR 100 UNIT/ML VIAL (IV) IV ONE (22:35)
[2024-06-07 22:37] LABS: Potassium 7.3 mmol/L (3.5-5.1)
[2024-06-07] MEDS: SODIUM CHLORIDE 0.9% 1,000 ML IV ONE (22:42)
[2024-06-07] MEDS: CALCIUM GLUCONATE IVPB ONE (22:44)
[2024-06-07] MEDS: SODIUM CHLORIDE 0.9% IVPB ONE (22:44)
[2024-06-07] MEDS: NACL IVPB ONE (22:44)
[2024-06-07] MEDS: SODIUM ZIRCONIUM CYCLOSILICATE 10 GM PACKET PO ONE (22:50)
[2024-06-07] MEDS: DILTIAZEM 125 MG in SODIUM CHLORIDE 0.9% 100 ML IV SCH (22:53)
[2024-06-07] MEDS: DILTIAZEM DRIP BOLUS FROM BAG 1 MG SOLN IV ONE (22:56)
[2024-06-07 22:58] LABS: INR 0.9 (<1.2); Partial Thromboplastin Time 22.9 sec (22.0-30.0); Prothrombin Time 9.8 sec (10.0-12.5)
[2024-06-08] MEDS: ALBUTEROL NEBULIZED (CONC) 20 MG, SODIUM CHLORIDE 0.9% NEBULIZ 3 ML INHALATION ONE (00:04)
[2024-06-08] MEDS ORDERED: MORPHINE SULFATE 4 MG/ML SYRINGE IV PRN (00:23)
[2024-06-08] MEDS ORDERED: ONDANSETRON 4 MG/2 ML VIAL IVP PRN (00:23)
[2024-06-08] MEDS ORDERED: NALOXONE 0.4 MG/ML 1 ML VIAL IV PRN (00:23)
[2024-06-08 00:29] LABS: RBC Morphology Normal
[2024-06-08 00:46] LABS: Glucose,Whole Blood 115 mg/dL (70-110)
[2024-06-08] MEDS: LORazepam 2 MG/ML INJ IV STA (01:02)
[2024-06-08] MEDS: LABETALOL 5 MG/ML VIAL MDV IVP STA (01:03)
[2024-06-08] MEDS: DEXTROSE 5% IN WATER 1,000 ML with SODIUM BICARB (1 MEQ/ML) 150 ML IV SCH (01:05)
[2024-06-08 01:37] LABS: African American GFR (CKD) 19 (>60 ml/min/1.73 sqM); Anion Gap 9 mmol/L; Blood Urea Nitrogen 59 mg/dL (7-17); Carbon Dioxide 13 mmol/L (22-30); Chloride 113 mmol/L (98-107); Glucose 142 mg/dL (74-99); Non-African American GFR(CKD) 16 (>60 ml/min/1.73 sqM); Sodium 135 mmol/L (137-145)
[2024-06-08 01:46] LABS: Potassium 5.6 mmol/L (3.5-5.1)
[2024-06-08] MEDS ORDERED: HEPARIN SODIUM 1,000 UN/ML (10ML VL) IV PRN (03:00)
[2024-06-08] MEDS: HEPARIN SOD,PORK IN 0.45% NACL 25,000 UNIT in 0.45% NACL 1 250ML.BAG IV SCH (03:08)
[2024-06-08 06:24] LABS: Glucose,Whole Blood 196 mg/dL (70-110)
[2024-06-08] MEDS ORDERED: DEXTROSE 50% SYRINGE 50 ML IVP PRN (08:28)
[2024-06-08] MEDS ORDERED: FLUTICASONE NASAL 50MCG/SPRAY 16GM BTL EA NOSTRIL PRN (08:29)
[2024-06-08] MEDS ORDERED: LOPERAMIDE 2 MG CAP PO PRN (08:29)
[2024-06-08] MEDS: PANTOPRAZOLE 40 MG TABLET PO SCH (09:11)
[2024-06-08] MEDS: LORazepam 0.5 MG TAB PO PRN (09:11)
[2024-06-08] MEDS: metOLazone 2.5 MG TAB PO SCH (09:11)
[2024-06-08] MEDS ORDERED: CYCLOBENZAPRINE 5 MG TAB PO PRN (10:12)
--- NOTE | 2024-06-08 11:26 | P.NPCON ---
History of Present Illness - Reason for Consult hyperkalemia - History of Present Illness Patient is a 33-year-old female with history of chronic kidney disease stage IIIb/IV secondary to biopsy-proven diabetic kidney disease. Patient has had significant volume overload and was recently started on amiloride along with loop diuretics. Patient states that she also started Mounjaro about 2 weeks ago. Patient was admitted to the hospital as lab called with a potassium of 7.3. Patient states she has been feeling fine she did report few loose bowel movements. Lower extremity swelling had improved but then worsened recently. Patient has been off of torsemide for about 1 week. Patient denies significant increase in potassium containing foods. Blood sugar was 124 on initial admission. No urinary symptoms. Patient has been voiding. She denies use of NSAIDs. Serum creatinine was 3.5 on admission and is 3.46 today. Previous creatinine was 2.4 on 04/27/2024 during her last hospitalization. Past Medical History Past Medical History: Asthma, Diabetes Mellitus, GERD/Reflux, Hypertension, Renal Disease Additional Past Medical History / Comment(s): hx. hiatal hernia, diabetic- TYPE 1 chronic kidney disease-protein in urine , albumin, MIGRAINE HEADACHES, CHILDHOOD ASTHMA, neuropathy in feet and legs, diabetic neuropathy History of Any Multi-Drug Resistant Organisms: MRSA Date of last positivie culture/infection: 2009 MDRO Source:: abdomen left side Past Surgical History: Section Additional Past Surgical History / Comment(s): surgery on cervix for abnormal cells, surgery groin area for grown hairs. bilateral cataract surgery with implants, Past Anesthesia/Blood Transfusion Reactions: Motion Sickness Additional Past Anesthesia/Blood Transfusion Reaction / Comment(s): Pt has clausterphobia. Past Psychological History: ADD/ADHD, Anxiety, Depression Additional Psychological History / Comment(s): Pt resides with her parents and her 2 children ages 7 and 9 yrs. She is independent. She states her depression is stable at this time but states yesterday, 06/17/21, she did feet more depresse d and had thoughts that she would be fine if she went to sleep and did not wake up. Pt denies suicidal thoughts/plans. Smoking Status: Former smoker Past Alcohol Use History: Occasional Additional Past Alcohol Use History / Comment(s): Pt started smoking in 2007 and quit in 2019 Past Drug Use History: Marijuana Additional Drug Use History / Comment(s): edibles occasional- instructed to hold 24 hours prior to procedure. - Past Family History Mother Family Medical History: No Reported History, Thyroid Disorder Additional Family Medical History / Comment(s): gestational diabetes Father Family Medical History: No Reported History Additional Family Medical History / Comment(s): chrons disease Medications and Allergies Home Medications Medication Instructions Recorded Confirmed Type Insulin Aspart (For Pump) [NovoLOG 0.01 unit SQ-PUMP CONTINUOUS 11/08/17 06/08/24 History (For Pump)] Cyclobenzaprine [Flexeril] 10 mg PO HS 10/06/22 06/08/24 History LORazepam [Ativan] 0.5 mg PO DAILY PRN 10/06/22 06/08/24 History Dextroamphetamine/Amphetamine 20 mg PO BID@0700,1300 01/05/23 06/08/24 History [Adderall] Cetirizine HCl [Zyrtec] 10 mg PO HS 04/25/24 06/08/24 History Fluticasone Nasal [place] [Flonase 2 spray EA NOSTRIL DAILY PRN 04/25/24 06/08/24 History Nasal [place]] Loperamide [Imodium] 4 mg PO TID PRN 04/25/24 06/08/24 History Omeprazole [PriLOSEC] 40 mg PO DAILY 04/25/24 06/08/24 History Ondansetron Odt [Zofran ODT] 4 mg PO Q12HR PRN 04/25/24 06/08/24 History metOLazone [Zaroxolyn] 2.5 mg PO DAILY 04/25/24 06/08/24 History Tirzepatide [Mounjaro] 2.5 mg SQ TU 06/08/24 06/08/24 History aMILoride HCL 5 mg PO DAILY 06/08/24 06/08/24 History Allergies Allergy/AdvReac Type Severity Reaction Status Date / Time cephalexin [From Keflex] Allergy Swelling Verified 06/08/24 09:00 (tongue) midazolam [From Versed] AdvReac very Verified 06/08/24 09:00 anxious feeling Physical Exam Vitals: Vital Signs Temp Pulse Pulse Resp BP BP Pulse Ox 06/08/24 11:00 97.6 F 120 H 18 128/85 99 06/08/24 08:00 121 H 17 06/08/24 07:54 97.5 F L 121 H 20 154/93 98 06/08/24 04:00 99 16 137/73 98 06/08/24 02:51 98 F 111 H 145/87 06/08/24 02:29 112 H 17 123/75 97 06/08/24 01:13 105 H 17 116/76 100 06/08/24 01:00 144 H 24 188/108 100 06/08/24 00:46 142 H 06/08/24 00:06 98.3 F 118 H 100 06/08/24 00:05 124 H 06/08/24 00:00 125 H 19 185/122 100 06/07/24 23:55 188/116 06/07/24 21:19 98.3 F 133 H 19 176/128 99 Intake and Output 06/07/24 06/08/24 06/08/24 22:59 06:59 14:59 Intake Total 240 Balance 240 Intake: Oral 240 Other: Voiding Method Toilet Weight 97.069 kg 98.9 kg Patient is awake, comfortable, alert oriented x 3 Examination of the heart S1 and S2 Examination of the lungs bilateral breath sounds are heard Abdomen is soft nontender Examination of lower extremities shows edema 1+ bilaterally MATTRESS SPECIALIST exam grossly intact Results - Lab Results Most recent lab results Calcium 9.0 mg/dL (8.4-10.2) 06/08/24 01:05 Phosphorus 6.1 mg/dL (2.5-4.5) H 06/07/24 21:37 Magnesium 1.8 mg/dL (1.6-2.3) 06/07/24 21:37 06/07/24 21:37 06/08/24 01:05 Assessment and Plan Assessment: 1. Acute kidney injury, ATN versus progression of underlying chronic kidney disease. Nonoliguric 2. Chronic kidney disease stage IIIb-IV secondary to biopsy-proven diabetic kidney disease with previous creatinine around 2.51-month ago 3. Hyperkalemia associated with metabolic acidosis, acute kidney injury and recent use of amiloride. Patient was off of torsemide for about 1 week which may have worsened the hyperkalemia. 4. [place] metabolic acidosis secondary to acute kidney injury, possibly related to a few loose bowel movements. 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 Multiple previous admissions for volume overload 6. Type 1 diabetes recently started Mounjaro about 2 weeks ago Plan: Continue with bicarb drip for 1 more day Add oral sodium bicarb Continue Zaroxolyn Will resume torsemide over the next 1 or 2 days Repeat labs in a.m. Low potassium diet Thank you for the consultation. We will continue to follow the patient with you during her hospitalization.
[2024-06-08] MEDS: MAG HYDROX/AL HYDROX/SIMETH 30 ML CUP PO PRN (11:30)
[2024-06-08 11:35] LABS: Glucose,Whole Blood 248 mg/dL (70-110)
[2024-06-08 11:56] LABS: African American GFR (CKD) 19 (>60 ml/min/1.73 sqM); Anion Gap 7 mmol/L; Blood Urea Nitrogen 59 mg/dL (7-17); Calcium 8.2 mg/dL (8.4-10.2); Carbon Dioxide 16 mmol/L (22-30); Chloride 109 mmol/L (98-107); Glucose 248 mg/dL (74-99); Non-African American GFR(CKD) 16 (>60 ml/min/1.73 sqM); Sodium 132 mmol/L (137-145)
[2024-06-08 11:59] LABS: Potassium 6.4 mmol/L (3.5-5.1)
[2024-06-08] MEDS: NON FORMULARY DRUG (Dextroamphetamine/Amphetamine [Adderall] 20 MG Tablet) PO SCH (12:26)
[2024-06-08] MEDS: INSULIN LISPRO (HumaLOG) 100 UNIT/ML 10 mL VL SQ SCH (12:35)
--- NOTE | 2024-06-08 15:58 | P.HPIM ---
History of Present Illness H&P Date: 06/08/24 History of present illness; Patient is a 33-year-old female with CKD who presents for elevated potassium. Patient was found to have severely elevated potassium on outpatient lab workup. Patient recently had change in medication does admit to changing diabetic medications as well as changing her diuretic to a potassium sparing diuretic. Potassium initially found to be 7.5 on outpatient draw. She attest this to a recent addition of amiloride, and discontinuation of torsemide. She follows with Dr. Damon's nephrology patient. Patient did experience some cramping of the hips, however denies nausea, vomiting. She denies any chest pain or palpitations at this time. She is otherwise well with no other complaints. Spoke with the ER physician, patient admission was accepted by internal medicine service for treatment. REVIEW OF SYSTEMS: Pertinent positives and negatives noted in HPI. PHYSICAL EXAMINATION: Vitals reviewed GENERAL: Resting comfortably in bed. Obese. EYES: PERRL, no scleral injection or icterus. No vision loss HENT: Normocephalic, atraumatic, hearing grossly intact, moist mucous membranes NECK: No tracheal deviation, full range of motion. CARDIOVASCULAR: S1 and S2 present. Tachycardic. No murmurs, rubs, or gallops. PULMONARY: Chest is clear to auscultation, no wheezing, rhonchi, or crackles. ABDOMEN: Soft, nontender, nondistended. No palpable organomegaly. MUSCULOSKELETAL: No apparent joint swelling and deformities. EXTREMITIES: No apparent cyanosis, clubbing. No pedal edema. NEUROLOGICAL: Alert and oriented. Gross neurological examination with no apparent focal deficits. SKIN: No apparent rashes. ER FINDINGS: Labs significant for WBC 14.1 potassium 7.3, sodium 131, chloride 113, bicarb 13, BUN 61, creatinine 3.43, glucose 132, ALP 150, troponin negative EKG independently interpreted showed atrial flutter tachycardia with RVR, heart rate of 131, QTc 367, no ST segment elevation or depression seen Assessment and Plan: In summary, patient is a 33-year-old female with CKD who presents for elevated potassium. # Severe hyperkalemia #Metabolic acidosis Initial potassium 7.3 Given calcium gluconate, Lokelma and albuterol Continue bicarb drip Add oral bicarb Continue metolazone Resume torsemide over next day or so Low potassium diet Monitor BMP Nephrology consulted #A flutter with RVR Resolved at this time Heparin and Cardizem drip discontinued Continuous cardiac monitoring #Leukocytosis, likely reactive Patient afebrile, asymptomatic Monitor CBC #Diabetes mellitus, type 2 Holding oral medications Begin Accu-Cheks and low-dose sliding scale, monitor for hypoglycemia Chronic Medical Conditions #Allergic rhinitis #Chronic pain Resume home medications DVT ppx: Subq Lovenox 40 meq daily Code status: Full code F: IV bicarb drip E: Replete as needed N: Renal diet diet A: Ambulatory Anticipated discharge place: Home Anticipated discharge time: Tomorrow Dictation was produced using [employer] dictation software. Please excuse any grammatical, word or spelling errors. Past Medical History Past Medical History: Asthma, Diabetes Mellitus, GERD/Reflux, Hypertension, Renal Disease Additional Past Medical History / Comment(s): hx. hiatal hernia, diabetic- TYPE 1 chronic kidney disease-protein in urine , albumin, MIGRAINE HEADACHES, CHILDHOOD ASTHMA, neuropathy in feet and legs, diabetic neuropathy History of Any Multi-Drug Resistant Organisms: MRSA Date of last positivie culture/infection: 2009 MDRO Source:: abdomen left side Past Surgical History: Section Additional Past Surgical History / Comment(s): surgery on cervix for abnormal cells, surgery groin area for grown hairs. bilateral cataract surgery with implants, Past Anesthesia/Blood Transfusion Reactions: Motion Sickness Additional Past Anesthesia/Blood Transfusion Reaction / Comment(s): Pt has clausterphobia. Past Psychological History: ADD/ADHD, Anxiety, Depression Additional Psychological History / Comment(s): Pt resides with her parents and her 2 children ages 7 and 9 yrs. She is independent. She states her depression is stable at this time but states yesterday, 06/17/21, she did feet more depressed and had thoughts that she would be fine if she went to sleep and did not wake up. Pt denies suicidal thoughts/plans. Smoking Status: Former smoker Past Alcohol Use History: Occasional Additional Past Alcohol Use History / Comment(s): Pt started smoking in 2007 and quit in 2019 Past Drug Use History: Marijuana Additional Drug Use History / Comment(s): edibles occasional- instructed to hold 24 hours prior to procedure. - Past Family History Mother Family Medical History: No Reported History, Thyroid Disorder Additional Family Medical History / Comment(s): gestational diabetes Father Family Medical History: No Reported History Additional Family Medical History / Comment(s): chrons disease Medications and Allergies Home Medications Medication Instructions Recorded Confirmed Type Insulin Aspart (For Pump) [NovoLOG 0.01 unit SQ-PUMP CONTINUOUS 11/08/17 06/08/24 History (For Pump)] Cyclobenzaprine [Flexeril] 10 mg PO HS 10/06/22 06/08/24 History LORazepam [Ativan] 0.5 mg PO DAILY PRN 10/06/22 06/08/24 History Dextroamphetamine/Amphetamine 20 mg PO BID@0700,1300 01/05/23 06/08/24 History [Adderall] Cetirizine HCl [Zyrtec] 10 mg PO HS 04/25/24 06/08/24 History Fluticasone Nasal [place] [Flonase 2 spray EA NOSTRIL DAILY PRN 04/25/24 06/08/24 History Nasal [place]] Loperamide [Imodium] 4 mg PO TID PRN 04/25/24 06/08/24 History Omeprazole [PriLOSEC] 40 mg PO DAILY 04/25/24 06/08/24 History Ondansetron Odt [Zofran ODT] 4 mg PO Q12HR PRN 04/25/24 06/08/24 History metOLazone [Zaroxolyn] 2.5 mg PO DAILY 04/25/24 06/08/24 History Tirzepatide [Mounjaro] 2.5 mg SQ TU 06/08/24 06/08/24 History aMILoride HCL 5 mg PO DAILY 06/08/24 06/08/24 History Allergies Allergy/AdvReac Type Severity Reaction Status Date / Time cephalexin [From Keflex] Allergy Swelling Verified 06/08/24 09:00 (tongue) midazolam [From Versed] AdvReac very Verified 06/08/24 09:00 anxious feeling Physical Exam Vitals: Vital Signs Temp Pulse Pulse Resp BP BP Pulse Ox 06/08/24 04:00 99 16 137/73 98 06/08/24 02:51 98 F 111 H 145/87 06/08/24 02:29 112 H 17 123/75 97 06/08/24 01:13 105 H 17 116/76 100 06/08/24 01:00 144 H 24 188/108 100 06/08/24 00:46 142 H 06/08/24 00:06 98.3 F 118 H 100 06/08/24 00:05 124 H 06/08/24 00:00 125 H 19 185/122 100 06/07/24 23:55 188/116 06/07/24 21:19 98.3 F 133 H 19 176/128 99 Intake and Output 06/07/24 06/08/24 06/08/24 22:59 06:59 14:59 Other: Weight 97.069 kg 98.9 kg Results CBC & Chem 7: 06/07/24 21:37 06/08/24 11:30 Labs: Abnormal Lab Results - Last 24 Hours (Table) 06/07/24 06/07/24 06/07/24 Range/Units 21:37 21:37 21:45 WBC 14.13 H (4.50-10.00) 10*3/uL Plt Count 463 H (140-440) 10*3/uL Immature Gran # 0.28 H (0.00-0.04) 10*3/uL Neutrophils # 7.72 H (1.80-7.70) 10*3/uL Lymphocytes # 5.02 H (0.90-5.00) 10*3/uL Basophils # 0.11 H (0.00-0.10) 10*3/uL PT (10.0-12.5) sec Sodium 131 L (137-145) mmol/L Potassium 7.3 H* (3.5-5.1) mmol/L Chloride 113 H (98-107) mmol/L Carbon Dioxide 13 L (22-30) mmol/L BUN 61 H (7-17) mg/dL Creatinine 3.43 H (0.52-1.04) mg/dL Glucose 132 H (74-99) mg/dL POC Glucose (mg/dL) 124 H (70-110) mg/dL Phosphorus 6.1 H (2.5-4.5) mg/dL Alkaline Phosphatase 150 H (38-126) U/L Total Protein 5.9 L (6.3-8.2) g/dL Albumin 2.6 L (3.5-5.0) g/dL 06/07/24 06/08/24 06/08/24 Range/Units 22:30 00:45 01:05 WBC (4.50-10.00) 10*3/uL Plt Count (140-440) 10*3/uL Immature Gran # (0.00-0.04) 10*3/uL Neutrophils # (1.80-7.70) 10*3/uL Lymphocytes # (0.90-5.00) 10*3/uL Basophils # (0.00-0.10) 10*3/uL PT 9.8 L (10.0-12.5) sec Sodium 135 L (137-145) mmol/L Potassium 5.6 H (3.5-5.1) mmol/L Chloride 113 H (98-107) mmol/L Carbon Dioxide 13 L (22-30) mmol/L BUN 59 H (7-17) mg/dL Creatinine 3.46 H (0.52-1.04) mg/dL Glucose 142 H (74-99) mg/dL POC Glucose (mg/dL) 115 H (70-110) mg/dL Phosphorus (2.5-4.5) mg/dL Alkaline Phosphatase (38-126) U/L Total Protein (6.3-8.2) g/dL Albumin (3.5-5.0) g/dL 06/08/24 Range/Units 06:23 WBC (4.50-10.00) 10*3/uL Plt Count (140-440) 10*3/uL Immature Gran # (0.00-0.04) 10*3/uL Neutrophils # (1.80-7.70) 10*3/uL Lymphocytes # (0.90-5.00) 10*3/uL Basophils # (0.00-0.10) 10*3/uL PT (10.0-12.5) sec Sodium (137-145) mmol/L Potassium (3.5-5.1) mmol/L Chloride (98-107) mmol/L Carbon Dioxide (22-30) mmol/L BUN (7-17) mg/dL Creatinine (0.52-1.04) mg/dL Glucose (74-99) mg/dL POC Glucose (mg/dL) 196 H (70-110) mg/dL Phosphorus (2.5-4.5) mg/dL Alkaline Phosphatase (38-126) U/L Total Protein (6.3-8.2) g/dL Albumin (3.5-5.0) g/dL Thrombosis Risk Factor Assmnt - Choose All That Apply Any of the Below Risk Factors Present?: No Other Risk Factors: No Other congenital or acquired thrombophilia - If yes, enter type in comment: No Thrombosis Risk Factor Assessment Level: Very Low Risk
[2024-06-08 16:16] LABS: Glucose,Whole Blood 228 mg/dL (70-110)
[2024-06-08] MEDS: INSULIN REGULAR 100 UNIT/ML VIAL (IV) IV ONE (17:37)
[2024-06-08 19:58] LABS: Glucose,Whole Blood 115 mg/dL (70-110)
[2024-06-08] MEDS: SODIUM BICARBONATE TAB 650 MG TAB PO SCH (20:28)
[2024-06-08] MEDS: LORATADINE 10 MG TAB PO SCH (20:28)
[2024-06-08] MEDS ORDERED: CYCLOBENZAPRINE 10 MG TAB PO SCH (21:00)
[2024-06-08] MEDS: LORazepam 0.5 MG TAB PO STA (23:05)
[2024-06-09 05:41] LABS: Basophils # (A) 0.07 10*3/uL (0.00-0.10); Basophils % (A) 0.7 %; Eosinophils # (A) 0.12 10*3/uL (0.04-0.35); Eosinophils % (A) 1.2 %; HCT 33.7 % (37.2-46.3); HGB 10.8 g/dL (12.0-15.0); Lymphocytes # (A) 4.67 10*3/uL (0.90-5.00); Lymphocytes % (A) 45.5 %; MCV 87.3 fL (80.0-97.0); Mean Platelet Volume 9.3 fL (9.5-12.2); Monocytes # (A) 0.92 10*3/uL (0.20-1.00); Neutrophils # (A) 4.35 10*3/uL (1.80-7.70); Neutrophils % (A) 42.2 %; Platelet Count 377 10*3/uL (140-440); RBC 3.86 10*6/uL (4.10-5.20); RDW 15.3 % (11.5-14.5); WBC 10.27 10*3/uL (4.50-10.00)
[2024-06-09 05:45] LABS: INR 0.9 (<1.2); Prothrombin Time 10.5 sec (10.0-12.5)
[2024-06-09 06:06] LABS: African American GFR (CKD) 17 (>60 ml/min/1.73 sqM); Anion Gap 1 mmol/L; Blood Urea Nitrogen 51 mg/dL (7-17); Calcium 8.4 mg/dL (8.4-10.2); Carbon Dioxide 19 mmol/L (22-30); Chloride 112 mmol/L (98-107); Glucose 127 mg/dL (74-99); Magnesium 1.9 mg/dL (1.6-2.3); Non-African American GFR(CKD) 15 (>60 ml/min/1.73 sqM); Phosphorus 4.8 mg/dL (2.5-4.5); Potassium 5.9 mmol/L (3.5-5.1); Sodium 132 mmol/L (137-145)
[2024-06-09 06:10] LABS: Glucose,Whole Blood 115 mg/dL (70-110)
[2024-06-09] MEDS: ACETAMINOPHEN TAB 325 MG TAB PO PRN (09:16)
--- NOTE | 2024-06-09 10:45 | US ---
EXAMINATION TYPE: US kidneys/renal and bladder DATE OF EXAM: 06/09/2024 COMPARISON: CT, US 2024, 2022 CLINICAL INDICATION: Female, 33 years old with history of hans; HANS. Hx benign left kidney biopsy 2 ye ars ago. TECHNIQUE: Grayscale imaging of the bilateral kidneys and urinary bladder: FINDINGS: EXAM MEASUREMENTS: Right Kidney: 13.2 x 6.0 x 5.4 cm Left Kidney: 14.3 x 5.7 x 6.4 cm Right Kidney: *Enlarged. No hydronephrosis or masses seen Left Kidney: *Enlarged. No hydronephrosis or masses seen Bladder: Possible internal echoes within the bladder versus artifact: 3.5 x 3.4 x 1.0 cm. Bilateral Jets seen: Yes Enlarged bilateral kidneys without evidence of hydronephrosis, shadowing calculus or solid mass. Abhi icomedullary differentiation is maintained bilaterally. Bilateral ureteral jets identified. There is possible internal echoes layering within the urinary jan dder versus artifact. No internal color flow. No wall thickening. IMPRESSION: 1. No hydronephrosis or nephrolithiasis. 2. Possible layering debris within the urinary bladder versus artifact. No internal color flow. Corre late with urinalysis. [facility], , 06/09/2024 10:43 AM
[2024-06-09] MEDS: FUROSEMIDE 10 MG/ML 4 ML VIAL IV SCH (11:24)
[2024-06-09 11:33] LABS: Glucose,Whole Blood 252 mg/dL (70-110)
[2024-06-09] MEDS ORDERED: INSULIN LISPRO (HumaLOG) 100 UNIT/ML 10 mL VL SQ PRN (11:37)
[2024-06-09] MEDS ORDERED: INSULIN PUMP BASAL RATES 1 EACH MISC MISCELLANE PRN (11:37)
[2024-06-09] MEDS: INSULIN PUMP MEAL BOLUS 1 UNIT MISC MISCELLANE SCH (11:47)
--- NOTE | 2024-06-09 11:58 | P.PN ---
Subjective Patient is seen for follow-up for acute kidney injury and chronic kidney disease. She was admitted with hyperkalemia. Renal function has worsened. Patient was also quite acidotic and is status post bicarb drip. Serum creatinine remains elevated and is higher at 3.7 today. Patient has been voiding She is complaining of swelling in the legs. No complaints of shortness of breath. CT scan on 04/25/2024 showed mild right hydronephrosis. Ultrasound will be ordered to rule out obstructive uropathy. Potassium is 5.9 today. Objective - Vital Signs Vital signs: Vital Signs Temp 98 F 06/09/24 11:46 Pulse 130 H 06/09/24 11:46 Resp 17 06/09/24 11:46 BP 153/91 06/09/24 11:46 Pulse Ox 97 06/09/24 11:46 FiO2 Intake & Output 06/08/24 06/09/24 06/09/24 18:59 06:59 18:59 Intake Total 240 450 Output Total 100 1450 Balance 140 -1000 Weight 96.8 kg Intake: Oral 240 450 Output: Urine 100 1450 Other: Voiding Method Toilet Toilet - Exam Patient is awake, comfortable, alert oriented x 3 Examination of the heart S1 and S2 Examination of the lungs bilateral breath sounds are heard Abdomen is soft nontender Examination of lower extremities shows edema 1+ bilaterally SYRUPER exam grossly intact - Labs CBC & Chem 7: 06/09/24 05:27 06/09/24 05:27 Labs: Abnormal Lab Results - Last 24 Hours (Table) 06/08/24 06/08/24 06/08/24 Range/Units 11:30 16:14 19:57 WBC (4.50-10.00) 10*3/uL RBC (4.10-5.20) 10*6/uL Hgb (12.0-15.0) g/dL Hct (37.2-46.3) % MPV (9.5-12.2) fL Immature Gran # (0.00-0.04) 10*3/uL Sodium 132 L (137-145) mmol/L Potassium 6.4 H* (3.5-5.1) mmol/L Chloride 109 H (98-107) mmol/L Carbon Dioxide 16 L (22-30) mmol/L BUN 59 H (7-17) mg/dL Creatinine 3.46 H (0.52-1.04) mg/dL Glucose 248 H (74-99) mg/dL POC Glucose (mg/dL) 228 H 115 H (70-110) mg/dL Calcium 8.2 L (8.4-10.2) mg/dL Phosphorus (2.5-4.5) mg/dL 06/09/24 06/09/24 06/09/24 Range/Units 05:27 05:27 06:09 WBC 10.27 H (4.50-10.00) 10*3/uL RBC 3.86 L (4.10-5.20) 10*6/uL Hgb 10.8 L (12.0-15.0) g/dL Hct 33.7 L (37.2-46.3) % MPV 9.3 L (9.5-12.2) fL Immature Gran # 0.14 H (0.00-0.04) 10*3/uL Sodium 132 L (137-145) mmol/L Potassium 5.9 H (3.5-5.1) mmol/L Chloride 112 H (98-107) mmol/L Carbon Dioxide 19 L (22-30) mmol/L BUN 51 H (7-17) mg/dL Creatinine 3.79 H (0.52-1.04) mg/dL Glucose 127 H (74-99) mg/dL POC Glucose (mg/dL) 115 H (70-110) mg/dL Calcium (8.4-10.2) mg/dL Phosphorus 4.8 H (2.5-4.5) mg/dL 06/09/24 Range/Units 11:32 WBC (4.50-10.00) 10*3/uL RBC (4.10-5.20) 10*6/uL Hgb (12.0-15.0) g/dL Hct (37.2-46.3) % MPV (9.5-12.2) fL Immature Gran # (0.00-0.04) 10*3/uL Sodium (137-145) mmol/L Potassium (3.5-5.1) mmol/L Chloride (98-107) mmol/L Carbon Dioxide (22-30) mmol/L BUN (7-17) mg/dL Creatinine (0.52-1.04) mg/dL Glucose (74-99) mg/dL POC Glucose (mg/dL) 252 H (70-110) mg/dL Calcium (8.4-10.2) mg/dL Phosphorus (2.5-4.5) mg/dL Assessment and Plan Assessment: 1. Acute kidney injury, ATN versus progression of underlying chronic kidney disease. Nonoliguric 2. Chronic kidney disease stage IIIb-IV secondary to biopsy-proven diabetic kidney disease with previous creatinine around 2.5 1 month ago 3. Hyperkalemia associated with metabolic acidosis, acute kidney injury and recent use of amiloride. Patient was off of torsemide for about 1 week which may have worsened the hyperkalemia. 4. [place] metabolic acidosis secondary to acute kidney injury, possibly related to a few loose bowel movements. 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 Multiple previous admissions for volume overload 6. Type 1 diabetes recently started Mounjaro about 2 weeks ago Plan: Add IV Lasix Check ultrasound of the kidneys Repeat potassium later on this evening Repeat labs in a.m. Continue with oral sodium bicarb Patient may use her insulin pump
[2024-06-09 15:05] LABS: Anion Gap 3 mmol/L; Blood Urea Nitrogen 49 mg/dL (7-17); Carbon Dioxide 19 mmol/L (22-30); Chloride 110 mmol/L (98-107); Glucose 138 mg/dL (74-99); Sodium 132 mmol/L (137-145)
[2024-06-09 15:06] LABS: African American GFR (CKD) 17 (>60 ml/min/1.73 sqM); Calcium 8.7 mg/dL (8.4-10.2); Non-African American GFR(CKD) 15 (>60 ml/min/1.73 sqM)
--- NOTE | 2024-06-09 15:12 | P.PN ---
Subjective Progress Note Date: 06/09/24 History of present illness; Patient is a 33-year-old female with CKD who presents for elevated potassium. Patient was found to have severely elevated potassium on outpatient lab workup. Patient recently had change in medication does admit to changing diabetic medications as well as changing her diuretic to a potassium sparing diuretic. Potassium initially found to be 7.5 on outpatient draw. She attest this to a recent addition of amiloride, and discontinuation of torsemide. She follows with Dr. Damon's nephrology patient. Patient did experience some cramping of the hips, however denies nausea, vomiting. She denies any chest pain or palpitations at this time. She is otherwise well with no other complaints. 06/09/2024 Patient seen and examined at bedside. No acute events overnight. Patient has some mild hip pain. Lasix added. Will continue oral bicarb. Nephrology following patient. REVIEW OF SYSTEMS: Pertinent positives and negatives noted in HPI. PHYSICAL EXAMINATION: Vitals reviewed GENERAL: Resting comfortably in bed. Obese. EYES: PERRL, no scleral injection or icterus. No vision loss CARDIOVASCULAR: S1 and S2 present. Tachycardic. No murmurs, rubs, or gallops. PULMONARY: Chest is clear to auscultation, no wheezing, rhonchi, or crackles. ABDOMEN: Soft, nontender, nondistended. No palpable organomegaly. MUSCULOSKELETAL: No apparent joint swelling and deformities. EXTREMITIES: No apparent cyanosis, clubbing. No pedal edema. NEUROLOGICAL: Alert and oriented. Gross neurological examination with no apparent focal deficits. SKIN: No apparent rashes. Objective FINDINGS: -Labs significant for WBC 10.2, hemoglobin 10.8, sodium 132, potassium 5.9, chloride 112, bicarb 19, BUN 51, creatinine 3.79, glucose 127, magnesium 1.9 Ultrasound of the kidneys without hydronephrosis or nephrolithiasis, possible layering debris within the urinary bladder versus artifact EKG with findings of sinus tachycardia, short [place] interval, rate 117, [place] 112, QTc 381, no ST segment elevation or depression Assessment and Plan: In summary, patient is a 33-year-old female with CKD who presents for elevated potassium. #Severe hyperkalemia #Metabolic acidosis Initial potassium 7.3 Given calcium gluconate, Lokelma and albuterol Continue oral bicarb Continue metolazone Begin IV Lasix Low potassium diet Monitor BMP, repeat this afternoon Nephrology following #A flutter with RVR, resolved #Sinus tachycardia Resolved at this time Heparin and Cardizem drip discontinued Continuous cardiac monitoring TSH ordered #HANS, nonoliguric Ultrasound of the kidneys without hydronephrosis or nephrolithiasis, possible layering debris within the urinary bladder versus artifact IV Lasix as above Nephrology following #Leukocytosis, likely reactive, improving Patient afebrile, asymptomatic Monitor CBC #Diabetes mellitus, type 1 Resume insulin pump Chronic Medical Conditions #Allergic rhinitis #Chronic pain #CKD Resume home medications DVT ppx: Subq Lovenox 40 meq daily Code status: Full code F: P.o. E: Replete as needed N: Renal diet diet A: Ambulatory Anticipated discharge place: Home Anticipated discharge time: 1 to 2 days Dictation was produced using [employer] dictation software. Please excuse any grammatical, word or spelling errors. Objective - Vital Signs Vital signs: Vital Signs Temp 98 F 06/09/24 11:46 Pulse 130 H 06/09/24 11:56 Resp 17 06/09/24 11:46 BP 153/91 06/09/24 11:46 Pulse Ox 97 06/09/24 11:46 FiO2 Intake & Output 06/08/24 06/09/24 06/09/24 18:59 06:59 18:59 Intake Total 240 450 Output Total 100 1450 Balance 140 -1000 Weight 96.8 kg Intake: Oral 240 450 Output: Urine 100 1450 Other: Voiding Method Toilet Toilet - Labs CBC & Chem 7: 06/09/24 05:27 06/09/24 05:27 Labs: Abnormal Lab Results - Last 24 Hours (Table) 06/08/24 06/08/24 06/09/24 Range/Units 16:14 19:57 05:27 WBC 10.27 H (4.50-10.00) 10*3/uL RBC 3.86 L (4.10-5.20) 10*6/uL Hgb 10.8 L (12.0-15.0) g/dL Hct 33.7 L (37.2-46.3) % MPV 9.3 L (9.5-12.2) fL Immature Gran # 0.14 H (0.00-0.04) 10*3/uL Sodium (137-145) mmol/L Potassium (3.5-5.1) mmol/L Chloride (98-107) mmol/L Carbon Dioxide (22-30) mmol/L BUN (7-17) mg/dL Creatinine (0.52-1.04) mg/dL Glucose (74-99) mg/dL POC Glucose (mg/dL) 228 H 115 H (70-110) mg/dL Phosphorus (2.5-4.5) mg/dL 06/09/24 06/09/24 06/09/24 Range/Units 05:27 06:09 11:32 WBC (4.50-10.00) 10*3/uL RBC (4.10-5.20) 10*6/uL Hgb (12.0-15.0) g/dL Hct (37.2-46.3) % MPV (9.5-12.2) fL Immature Gran # (0.00-0.04) 10*3/uL Sodium 132 L (137-145) mmol/L Potassium 5.9 H (3.5-5.1) mmol/L Chloride 112 H (98-107) mmol/L Carbon Dioxide 19 L (22-30) mmol/L BUN 51 H (7-17) mg/dL Creatinine 3.79 H (0.52-1.04) mg/dL Glucose 127 H (74-99) mg/dL POC Glucose (mg/dL) 115 H 252 H (70-110) mg/dL Phosphorus 4.8 H (2.5-4.5) mg/dL
[2024-06-09 15:31] LABS: Potassium 6.7 mmol/L (3.5-5.1)
[2024-06-09 16:27] LABS: Glucose,Whole Blood 151 mg/dL (70-110)
[2024-06-09] MEDS: ONDANSETRON ODT 4 MG TAB PO PRN (17:17)
[2024-06-09] MEDS: INSULIN REGULAR 100 UNIT/ML VIAL (IM/SQ) SQ ONE (17:17)
[2024-06-09] MEDS: SODIUM ZIRCONIUM CYCLOSILICATE 10 GM PACKET PO SCH (17:17)
[2024-06-09] MEDS: DEXTROSE 50% SYRINGE 50 ML IVP STA (17:17)
[2024-06-09] MEDS: BUTALB/APAP/CAFF 50-325-40MG TAB PO PRN (17:30)
[2024-06-09 19:16] LABS: African American GFR (CKD) 17 (>60 ml/min/1.73 sqM); Anion Gap 3 mmol/L; Blood Urea Nitrogen 49 mg/dL (7-17); Calcium 8.7 mg/dL (8.4-10.2); Carbon Dioxide 19 mmol/L (22-30); Chloride 111 mmol/L (98-107); Non-African American GFR(CKD) 15 (>60 ml/min/1.73 sqM); Potassium 5.7 mmol/L (3.5-5.1); Sodium 133 mmol/L (137-145)
[2024-06-09 19:29] LABS: Glucose 49 mg/dL (74-99)
[2024-06-09 19:39] LABS: Glucose,Whole Blood 82 mg/dL (70-110)
[2024-06-09 20:03] LABS: Glucose,Whole Blood 95 mg/dL (70-110)
[2024-06-09] MEDS: hydrALAZINE HCL 25 MG TAB PO PRN (20:47)
[2024-06-09] MEDS: LORazepam 0.5 MG TAB PO PRN (22:25)
[2024-06-09 23:28] LABS: Glucose,Whole Blood 62 mg/dL (70-110)
[2024-06-09 23:49] LABS: Glucose,Whole Blood 76 mg/dL (70-110)
[2024-06-10 02:03] LABS: Glucose,Whole Blood 129 mg/dL (70-110)
[2024-06-10 06:11] LABS: Glucose,Whole Blood 96 mg/dL (70-110)
[2024-06-10 07:04] LABS: African American GFR (CKD) 18 (>60 ml/min/1.73 sqM); Anion Gap 5 mmol/L; Blood Urea Nitrogen 49 mg/dL (7-17); Calcium 8.4 mg/dL (8.4-10.2); Carbon Dioxide 18 mmol/L (22-30); Chloride 110 mmol/L (98-107); Glucose 103 mg/dL (74-99); Non-African American GFR(CKD) 15 (>60 ml/min/1.73 sqM); Potassium 5.6 mmol/L (3.5-5.1); Sodium 133 mmol/L (137-145)
[2024-06-10 11:43] LABS: Glucose,Whole Blood 261 mg/dL (70-110)
--- NOTE | 2024-06-10 14:01 | P.PN ---
Subjective Progress Note Date: 06/10/24 History of present illness; Patient is a 33-year-old female with CKD who presents for elevated potassium. Patient was found to have severely elevated potassium on outpatient lab workup. Patient recently had change in medication does admit to changing diabetic medications as well as changing her diuretic to a potassium sparing diuretic. Potassium initially found to be 7.5 on outpatient draw. She attest this to a recent addition of amiloride, and discontinuation of torsemide. She follows with Dr. Damon's nephrology patient. Patient did experience some cramping of the hips, however denies nausea, vomiting. She denies any chest pain or palpitations at this time. She is otherwise well with no other complaints. 06/09/2024 Patient seen and examined at bedside. No acute events overnight. Patient has some mild hip pain. Lasix added. Will continue oral bicarb. Nephrology following patient. 06/10/2024 Patient seen and examined at bedside. Patient tachycardic and irregular. Will add metoprolol 25 mg daily. Potassium improving. Nephrology following patient. REVIEW OF SYSTEMS: Pertinent positives and negatives noted in HPI. PHYSICAL EXAMINATION: Vitals reviewed GENERAL: Resting comfortably in bed. Obese. EYES: PERRL, no scleral injection or icterus. No vision loss CARDIOVASCULAR: S1 and S2 present. Tachycardic. No murmurs, rubs, or gallops. PULMONARY: Chest is clear to auscultation, no wheezing, rhonchi, or crackles. ABDOMEN: Soft, nontender, nondistended. No palpable organomegaly. MUSCULOSKELETAL: No apparent joint swelling and deformities. EXTREMITIES: No apparent cyanosis, clubbing. No pedal edema. NEUROLOGICAL: Alert and oriented. Gross neurological examination with no apparent focal deficits. SKIN: No apparent rashes. Objective FINDINGS: -Labs significant for sodium 133, potassium 5.6, bicarb 18, anion gap 5, BUN 49, creatinine 3.64, glucose 96-261 no new imaging Assessment and Plan: In summary, patient is a 33-year-old female with CKD who presents for elevated potassium. #Severe hyperkalemia #Metabolic acidosis Initial potassium 7.3 Given calcium gluconate, Lokelma and albuterol Continue oral bicarb Continue metolazone Continue IV Lasix Low potassium diet Monitor BMP, repeat in the afternoon Nephrology following #A flutter with RVR, resolved #Sinus tachycardia Resolved at this time Heparin and Cardizem drip discontinued Begin metoprolol 25 mg daily Continuous cardiac monitoring TSH is WNL #HANS, nonoliguric Ultrasound of the kidneys without hydronephrosis or nephrolithiasis, possible layering debris within the urinary bladder versus artifact IV Lasix as above Nephrology following #Leukocytosis, likely reactive, improving Patient afebrile, asymptomatic Monitor CBC #Diabetes mellitus, type 1 Resume insulin pump A1c pending Chronic Medical Conditions #Allergic rhinitis #Chronic pain #CKD Resume home medications DVT ppx: Subq Lovenox 40 meq daily Code status: Full code F: P.o. E: Replete as needed N: Renal diet diet A: Ambulatory Anticipated discharge place: Home Anticipated discharge time: [address] Carrasco seen patient with resident, present during exam, and agreed with findings. Dictation was produced using [employer] dictation software. Please excuse any grammatical, word or spelling errors. Objective - Vital Signs Vital signs: Vital Signs Temp 98.2 F 06/09/24 19:30 Pulse 114 H 06/10/24 04:30 Resp 18 06/10/24 04:30 BP 152/96 06/10/24 04:30 Pulse Ox 98 06/10/24 04:30 FiO2 Intake & Output 06/09/24 06/10/24 06/10/24 18:59 06:59 18:59 Intake Total 750 40 Output Total 2350 1000 Balance -1600 -960 Weight 99.7 kg Intake: IV 40 Invasive Line 1 20 Invasive Line 2 20 Oral 750 Output: Urine 2350 1000 Other: Voiding Method Toilet - Labs CBC & Chem 7: 06/09/24 05:27 06/10/24 05:25 Labs: Abnormal Lab Results - Last 24 Hours (Table) 06/09/24 06/09/24 06/09/24 Range/Units 11:32 14:25 16:26 Sodium 132 L (137-145) mmol/L Potassium 6.7 H* (3.5-5.1) mmol/L Chloride 110 H (98-107) mmol/L Carbon Dioxide 19 L (22-30) mmol/L BUN 49 H (7-17) mg/dL Creatinine 3.80 H (0.52-1.04) mg/dL Glucose 138 H (74-99) mg/dL POC Glucose (mg/dL) 252 H 151 H (70-110) mg/dL 06/09/24 06/09/24 06/10/24 Range/Units 18:33 23:27 02:02 Sodium 133 L (137-145) mmol/L Potassium 5.7 H (3.5-5.1) mmol/L Chloride 111 H (98-107) mmol/L Carbon Dioxide 19 L (22-30) mmol/L BUN 49 H (7-17) mg/dL Creatinine 3.70 H (0.52-1.04) mg/dL Glucose 49 L* (74-99) mg/dL POC Glucose (mg/dL) 62 L 129 H (70-110) mg/dL 06/10/24 Range/Units 05:25 Sodium 133 L (137-145) mmol/L Potassium 5.6 H (3.5-5.1) mmol/L Chloride 110 H (98-107) mmol/L Carbon Dioxide 18 L (22-30) mmol/L BUN 49 H (7-17) mg/dL Creatinine 3.64 H (0.52-1.04) mg/dL Glucose 103 H (74-99) mg/dL POC Glucose (mg/dL) (70-110) mg/dL
[2024-06-10 14:44] LABS: African American GFR (CKD) 17 (>60 ml/min/1.73 sqM); Anion Gap 5 mmol/L; Blood Urea Nitrogen 46 mg/dL (7-17); Calcium 8.4 mg/dL (8.4-10.2); Carbon Dioxide 22 mmol/L (22-30); Chloride 107 mmol/L (98-107); Glucose 146 mg/dL (74-99); Non-African American GFR(CKD) 15 (>60 ml/min/1.73 sqM); Potassium 5.6 mmol/L (3.5-5.1); Sodium 134 mmol/L (137-145)
[2024-06-10] MEDS: METOPROLOL SUCCINATE (ER) 25 MG TAB.ER.24H PO SCH (15:57)
[2024-06-10 16:39] LABS: Glucose,Whole Blood 184 mg/dL (70-110)
--- NOTE | 2024-06-10 17:52 | P.PN ---
Subjective Patient is seen for follow-up for acute kidney injury and chronic kidney disease. She was admitted with hyperkalemia. Renal function has worsened. Patient was also quite acidotic and is status post bicarb drip. Serum creatinine remains elevated. She is complaining of swelling in the legs. No complaints of shortness of breath. CT scan on 04/25/2024 showed mild right hydronephrosis. However ultrasound from yesterday does not show any evidence of obstructive uropathy. Potassium is 5.6 today. Objective - Vital Signs Vital signs: Vital Signs Temp 98.3 F 06/10/24 11:56 Pulse 122 H 06/10/24 15:56 Resp 16 06/10/24 15:56 BP 140/87 06/10/24 15:56 Pulse Ox 99 06/10/24 15:56 FiO2 Intake & Output 06/09/24 06/10/24 06/10/24 18:59 06:59 18:59 Intake Total 750 40 480 Output Total 2350 1000 1600 Balance -1600 -960 -1120 Weight 99.7 kg Intake: IV 40 Invasive Line 1 20 Invasive Line 2 20 Oral 750 480 Output: Urine 2350 1000 1600 Other: Voiding Method Toilet - Exam Patient is awake, comfortable, alert oriented x 3 Examination of the heart S1 and S2 Examination of the lungs bilateral breath sounds are heard Abdomen is soft nontender Examination of lower extremities shows edema 1+ bilaterally TRICHOLOGIST exam grossly intact - Labs CBC & Chem 7: 06/09/24 05:27 06/10/24 14:18 Labs: Abnormal Lab Results - Last 24 Hours (Table) 06/09/24 06/09/24 06/10/24 Range/Units 18:33 23:27 02:02 Sodium 133 L (137-145) mmol/L Potassium 5.7 H (3.5-5.1) mmol/L Chloride 111 H (98-107) mmol/L Carbon Dioxide 19 L (22-30) mmol/L BUN 49 H (7-17) mg/dL Creatinine 3.70 H (0.52-1.04) mg/dL Glucose 49 L* (74-99) mg/dL POC Glucose (mg/dL) 62 L 129 H (70-110) mg/dL 06/10/24 06/10/24 06/10/24 Range/Units 05:25 11:41 14:18 Sodium 133 L 134 L (137-145) mmol/L Potassium 5.6 H 5.6 H (3.5-5.1) mmol/L Chloride 110 H (98-107) mmol/L Carbon Dioxide 18 L (22-30) mmol/L BUN 49 H 46 H (7-17) mg/dL Creatinine 3.64 H 3.68 H (0.52-1.04) mg/dL Glucose 103 H 146 H (74-99) mg/dL POC Glucose (mg/dL) 261 H (70-110) mg/dL 06/10/24 Range/Units 16:37 Sodium (137-145) mmol/L Potassium (3.5-5.1) mmol/L Chloride (98-107) mmol/L Carbon Dioxide (22-30) mmol/L BUN (7-17) mg/dL Creatinine (0.52-1.04) mg/dL Glucose (74-99) mg/dL POC Glucose (mg/dL) 184 H (70-110) mg/dL Assessment and Plan Assessment: 1. Acute kidney injury, ATN versus progression of underlying chronic kidney disease. Nonoliguric. Ultrasound does not show any obstructive uropathy. 2. Chronic kidney disease stage IIIb-IV secondary to biopsy-proven diabetic kidney disease with previous creatinine around 2.5 about 1 month ago 3. Hyperkalemia associated with metabolic acidosis, acute kidney injury and recent use of amiloride. Patient was off of torsemide for about 1 week which may have worsened the hyperkalemia. 4. [place] metabolic acidosis secondary to acute kidney injury, possibly related to a few loose bowel movements. 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 Multiple previous admissions for volume overload 6. Type 1 diabetes recently started Mounjaro about 2 weeks ago Plan: Continue IV Lasix, dose increased Repeat potassium later on this evening Repeat labs in a.m. Continue with oral sodium bicarb Control blood sugars. Possible discharge in a.m. on torsemide and Zaroxolyn along with sodium bicarb. May need to hold amiloride for now if potassium remains elevated. Also discussed low potassium diet with the patient. Patient will need low potassium diet handout upon discharge.
[2024-06-10] MEDS: MELATONIN 5 MG TABLET PO SCH (19:51)
[2024-06-10] MEDS: FUROSEMIDE 10 MG/ML 10 ML VIAL IV SCH (19:52)
[2024-06-10 20:06] LABS: Glucose,Whole Blood 148 mg/dL (70-110)
[2024-06-11 02:14] LABS: Glucose,Whole Blood 166 mg/dL (70-110)
[2024-06-11] MEDS: INSPUCOR MISCELLANE PRN (02:17)
[2024-06-11 06:08] LABS: Glucose,Whole Blood 91 mg/dL (70-110)
[2024-06-11 06:47] LABS: African American GFR (CKD) 18 (>60 ml/min/1.73 sqM); Anion Gap 3 mmol/L; Blood Urea Nitrogen 45 mg/dL (7-17); Calcium 8.3 mg/dL (8.4-10.2); Carbon Dioxide 22 mmol/L (22-30); Chloride 109 mmol/L (98-107); Glucose 98 mg/dL (74-99); Non-African American GFR(CKD) 16 (>60 ml/min/1.73 sqM); Potassium 4.8 mmol/L (3.5-5.1); Sodium 134 mmol/L (137-145)
[2024-06-11] MEDS ORDERED: METOPROLOL SUCCINATE (ER) 25 MG TAB.ER.24H PO SCH (09:00)
--- NOTE | 2024-06-11 09:08 | P.PN ---
Subjective Patient is seen in follow-up for acute kidney injury on chronic kidney disease. Renal function stable. Edema improving. Wants to go home. Vital signs are stable. General: No acute distress. HEENT: Head exam is unremarkable. LUNGS: L no audible rhonchi or wheezes. HEART: Rate and Rhythm are regular. ABDOMEN: Nontender. EXTREMITITES: 1+ edema. Objective - Vital Signs Vital signs: Vital Signs Temp 97.9 F 06/11/24 04:12 Pulse 102 H 06/11/24 04:12 Resp 16 06/11/24 04:12 BP 130/88 06/11/24 04:12 Pulse Ox 98 06/11/24 04:12 FiO2 Intake & Output 06/10/24 06/11/24 06/11/24 18:59 06:59 18:59 Intake Total 720 Output Total 1600 800 Balance -880 -800 Weight 97.1 kg Intake: Oral 720 Output: Urine 1600 800 Other: Voiding Method Toilet - Labs CBC & Chem 7: 06/09/24 05:27 06/11/24 05:34 Labs: Abnormal Lab Results - Last 24 Hours (Table) 06/10/24 06/10/24 06/10/24 Range/Units 11:41 14:18 16:37 Sodium 134 L (137-145) mmol/L Potassium 5.6 H (3.5-5.1) mmol/L Chloride (98-107) mmol/L BUN 46 H (7-17) mg/dL Creatinine 3.68 H (0.52-1.04) mg/dL Glucose 146 H (74-99) mg/dL POC Glucose (mg/dL) 261 H 184 H (70-110) mg/dL Calcium (8.4-10.2) mg/dL 06/10/24 06/11/24 06/11/24 Range/Units 20:04 02:11 05:34 Sodium 134 L (137-145) mmol/L Potassium (3.5-5.1) mmol/L Chloride 109 H (98-107) mmol/L BUN 45 H (7-17) mg/dL Creatinine 3.60 H (0.52-1.04) mg/dL Glucose (74-99) mg/dL POC Glucose (mg/dL) 148 H 166 H (70-110) mg/dL Calcium 8.3 L (8.4-10.2) mg/dL Assessment and Plan Plan: Assessment: 1. Acute kidney injury secondary to ATN versus progression of underlying chronic kidney disease. No hydronephrosis noted on kidney ultrasound. Nonoliguric. Creatinine stable at 3.6. 2. Chronic kidney disease stage IV secondary to biopsy-proven diabetic kidney disease with creatinine 2.5 earlier this year. 3. Volume overload. 4. Type 1 diabetes mellitus. 5. Metabolic acidosis secondary to chronic kidney disease, type IV RTA. Potentially exacerbated by Mounjaro. On oral bicarb. Plan: Transition to oral torsemide 40 mg once daily. Advised patient to take an additional 20 mg if develops worsening edema or gains more than 3 pounds in 1 week duration. Maintain metolazone. Advised patient to take it 3-4 times a week. Advised patient to maintain low-sodium diet and fluid restriction of less than 50 to 55 ounces per day. Also advised patient to monitor her weight closely at home and to notify physician if develops worsening edema or gains more than 3 pounds in 1 week duration. Hold amiloride for now. Repeat BMP and magnesium level 2 to 3 days postdischarge. Follow-up outpatient in 1 week. Briefly discussed kidney transplant referral and prep for renal replacement therapy depending on renal function in the near future.
[2024-06-11 09:42] VITALS: BP 152/98; PULSE 101; RESP 18; TEMP 97.7
[2024-06-11] MEDS: TORSEMIDE 20 MG TAB PO SCH (09:53)
--- NOTE | 2024-06-11 11:30 | P.DS ---
Providers Date of admission: 06/08/24 00:24 Expected date of discharge: 06/11/24 Attending physician: Stacey Dunn Consults: 06/08/24 00:23 Consult Physician Routine Consulting Provider: Raffy Rodriguez Consult Reason/Comments: CKD Do you want consulting provider notified?: Yes Primary care physician: Mohit Curran Hospital Course: Discharge diagnoses; #Severe hyperkalemia #Metabolic acidosis #A flutter with RVR, resolved #Sinus tachycardia #HANS, nonoliguric #Leukocytosis, reactive #Diabetes mellitus, type 1 Chronic Medical Conditions #Allergic rhinitis #Chronic pain #CKD Hospital course; History of present illness; Patient is a 33-year-old female with CKD who presents for elevated potassium. Patient was found to have severely elevated potassium on outpatient lab workup. Patient recently had change in medication does admit to changing diabetic medications as well as changing her diuretic to a potassium sparing diuretic. Potassium initially found to be 7.5 on outpatient draw. She attest this to a recent addition of amiloride, and discontinuation of torsemide. She follows with Dr. Damon's nephrology patient. Patient did experience some cramping of the hips, however denies nausea, vomiting. She denies any chest pain or palpitations at this time. She is otherwise well with no other complaints. During stay patient she was treated for severe hyperkalemia and metabolic acidosis. She does have sinus tachycardia which was treated with metoprolol. During stay she was seen by nephrology. Patient discharged home in stable condition. oral torsemide 40 mg once daily. Maintain metolazon, advised patient to take it 3-4 times a week. Continue bicarb tabs. Hold amiloride for now. Continue metoprolol for tachycardia. Repeat BMP and magnesium level 2 to 3 days postdischarge. Patient to follow-up with nephrology. PHYSICAL EXAMINATION: Vitals reviewed GENERAL: Resting comfortably in bed. Obese. EYES: PERRL, no scleral injection or icterus. No vision loss CARDIOVASCULAR: S1 and S2 present. Tachycardic. No murmurs, rubs, or gallops. PULMONARY: Chest is clear to auscultation, no wheezing, rhonchi, or crackles. ABDOMEN: Soft, nontender, nondistended. No palpable organomegaly. MUSCULOSKELETAL: No apparent joint swelling and deformities. EXTREMITIES: No apparent cyanosis, clubbing. 1+ pedal edema. NEUROLOGICAL: Alert and oriented. Gross neurological examination with no apparent focal deficits. SKIN: No apparent rashes. Dr. Mcghee seen patient with resident, present during exam, and agreed with findings. Dictation was produced using [employer] dictation software. please excuse any grammatical, word or spelling errors. Patient Condition at Discharge: Stable Plan - Discharge Summary Discharge Rx Participant: No New Discharge Prescriptions: New Metoprolol Succinate (ER) [Toprol XL] 25 mg PO DAILY #30 tab Torsemide [Demadex] 40 mg PO DAILY #60 tab Sodium Bicarbonate Tab 650 mg PO BID #60 tab Continue Insulin Aspart (For Pump) [NovoLOG (For Pump)] 0.01 unit SQ-PUMP CONTINUOUS LORazepam [Ativan] 0.5 mg PO DAILY PRN PRN Reason: Anxiety Dextroamphetamine/Amphetamine [Adderall] 20 mg PO BID@0700,1300 Cetirizine HCl [Zyrtec] 10 mg PO HS Fluticasone Nasal [place] [Flonase Nasal [place]] 2 spray EA NOSTRIL DAILY PRN PRN Reason: Allergy Symptoms Omeprazole [PriLOSEC] 40 mg PO DAILY Ondansetron Odt [Zofran ODT] 4 mg PO Q12HR PRN PRN Reason: Nausea Tirzepatide [Mounjaro] 2.5 mg SQ TU Cyclobenzaprine [Flexeril] 10 mg PO HS metOLazone [Zaroxolyn] 2.5 mg PO DAILY Loperamide [Imodium] 4 mg PO TID PRN PRN Reason: Diarrhea Discontinued aMILoride HCL 5 mg PO DAILY Discharge Medication List Insulin Aspart (For Pump) [NovoLOG (For Pump)] 0.01 unit SQ-PUMP CONTINUOUS 11/08/17 [History] Cyclobenzaprine [Flexeril] 10 mg PO HS 10/06/22 [History] LORazepam [Ativan] 0.5 mg PO DAILY PRN 10/06/22 [History] Dextroamphetamine/Amphetamine [Adderall] 20 mg PO BID@0700,1300 01/05/23 [Histo ry] Cetirizine HCl [Zyrtec] 10 mg PO HS 04/25/24 [History] Fluticasone Nasal [place] [Flonase Nasal [place]] 2 spray EA NOSTRIL DAILY PRN 04/25/24 [History] Loperamide [Imodium] 4 mg PO TID PRN 04/25/24 [History] Omeprazole [PriLOSEC] 40 mg PO DAILY 04/25/24 [History] Ondansetron Odt [Zofran ODT] 4 mg PO Q12HR PRN 04/25/24 [History] metOLazone [Zaroxolyn] 2.5 mg PO DAILY 04/25/24 [History] Tirzepatide [Mounjaro] 2.5 mg SQ TU 06/08/24 [History] Metoprolol Succinate (ER) [Toprol XL] 25 mg PO DAILY #30 tab 06/11/24 [Rx] Sodium Bicarbonate Tab 650 mg PO BID #60 tab 06/11/24 [Rx] Torsemide [Demadex] 40 mg PO DAILY #60 tab 06/11/24 [Rx] Follow up Appointment(s)/Referral(s): Mohit Curran MD [Primary Care Provider] - 1-2 days (office is closed please call and make appointment) Shirley Damon MD [STAFF PHYSICIAN] - 1 Week (office closed please call and make appointment ) Ambulatory/Diagnostic Orders: Basic Metabolic Panel [LAB.AMB] Location: None Selected Magnesium [LAB.AMB] Location: None Selected Patient Instructions/Handouts: Chronic Kidney Disease (DC), Hyperkalemia (DC), Diabetic Kidney Disease (DC) Activity/Diet/Wound Care/Special Instructions: Complete BMP and magnesium labs 3 days after discharge. Follow-up with PCP and nephrology. Maintain metolazone. Advised patient to take it 3-4 times a week. Advised patient to maintain low-sodium diet and fluid restriction of less than 50 to 55 ounces per day. Hold amiloride for now. Discharge Disposition: HOME SELF-CARE
== END 2024-06-11 11:52 | disposition home or self-care (01) | DRG 640 ==
LOC: EC 21:18 → 3SCARD 06-08 00:24
PROVIDERS: ADMIT Hospitalist; ATTEND Hospitalist
DX: E87.5 Hyperkalemia (principal); N17.0 Acute kidney failure with tubular necrosis; I48.92 Unspecified atrial flutter; E87.20 Acidosis, unspecified; N18.4 Chronic kidney disease, stage 4 (severe); N25.89 Other disorders resulting from impaired renal tubular function; I48.91 Unspecified atrial fibrillation; G43.909 Migraine, unspecified, not intractable, without status migrainosus; E10.22 Type 1 diabetes mellitus with diabetic chronic kidney disease; D72.829 Elevated white blood cell count, unspecified; I12.9 Hypertensive chronic kidney disease with stage 1 through stage 4 chronic kidney disease, or unspecified chronic kidney disease; J45.909 Unspecified asthma, uncomplicated; F32.A Depression, unspecified; E10.41 Type 1 diabetes mellitus with diabetic mononeuropathy; Z79.4 Long term (current) use of insulin; G57.93 Unspecified mononeuropathy of bilateral lower limbs; E87.70 Fluid overload, unspecified; M25.559 Pain in unspecified hip; G89.29 Other chronic pain; K21.9 Gastro-esophageal reflux disease without esophagitis; K44.9 Diaphragmatic hernia without obstruction or gangrene; F90.9 Attention-deficit hyperactivity disorder, unspecified type; F41.9 Anxiety disorder, unspecified; Z96.41 Presence of insulin pump (external) (internal); Z79.85 Long-term (current) use of injectable non-insulin antidiabetic drugs; Z79.899 Other long term (current) drug therapy; Z87.891 Personal history of nicotine dependence; Z86.14 Personal history of Methicillin resistant Staphylococcus aureus infection; Z88.4 Allergy status to anesthetic agent; Z88.1 Allergy status to other antibiotic agents
CPT/HCPCS: 36415; 76770; 80048; 80053; 82009; 83036; 83605; 83735; 84100; 84443; 84484; 85025; 85610; 85730; 93005; 94640; 96365; 96366; 96368; 96375; 96376; 99291

== ENCOUNTER → 2024-06-07 | Outpatient (CLI) | payer MEDICARE ==
[2024-06-07 15:30] LABS: Creatinine,Urine Random 82.5 mg/dL
[2024-06-07 18:12] LABS: HCT 38.9 % (37.2-46.3); HGB 11.8 g/dL (12.0-15.0); MCH 27.6 pg (27.0-32.0); MCHC 30.3 g/dL (32.0-37.0); MCV 90.9 FL (80.0-97.0); Mean Platelet Volume 9.9 FL (9.5-12.2); NRBC Per 100 WBC 0 X 10*3/uL (0.00-0.01); Platelet Count 471 X 10*3/uL (140-440); RBC 4.28 X 10*6/uL (4.10-5.20); RDW 15.7 % (11.5-14.5); WBC 15.83 X 10*3/uL (4.50-10.00)
[2024-06-07 18:58] LABS: Urine Creatinine 89.3 mg/dL (28.0-217.0)
[2024-06-07 19:00] LABS: Magnesium 1.8 mg/dL (1.5-2.4); Phosphorus 5.1 mg/dL (2.4-5.1)
[2024-06-07 19:15] LABS: Microalbumin Creatinine Ratio >4927 mg/g Cr (0-30)
[2024-06-07 19:27] LABS: ALT 29 U/L (8-44); AST 26 U/L (13-35); Albumin 2.5 g/dL (3.8-4.9); Albumin/Globulin Ratio 0.96 Ratio (1.60-3.17); Alkaline Phosphatase 129 U/L (41-126); BUN/Creat Ratio 16.11 Ratio (12.00-20.00); Blood Urea Nitrogen 56.4 mg/dL (9.0-27.0); Calcium 8.8 mg/dL (8.7-10.3); Chloride 113 mmol/L (96-109); Globulin 2.6 g/dL (1.6-3.3); Glucose 107 mg/dL (70-110); Potassium 7.5 mmol/L (3.5-5.5); Sodium 137 mmol/L (135-145); Total Bilirubin <0.2 mg/dL (0.3-1.2); Total Protein 5.1 g/dL (6.2-8.2)
[2024-06-07 19:59] LABS: Basophils # (M) 0.32 X 10*3/uL (0.00-0.10); Eosinophils # (M) 0.16 X 10*3/uL (0.04-0.35); Lymphocytes # (M) 4.75 X 10*3/uL (0.90-5.00); Monocytes # (M) 0.63 X 10*3/uL (0.20-1.00); Myelocytes % 1 % (0-0); Neutrophils # (M) 9.81 X 10*3/uL (1.80-7.70); Neutrophils % (M) 62 %
== END | disposition home or self-care (01) ==
LOC: LABWHC1 13:43
PROVIDERS: ATTEND Nurse Practitioner Acute Care
DX: N18.31 Chronic kidney disease, stage 3a (principal)
CPT/HCPCS: 36415; 80053; 82043; 82570; 83735; 84100; 84156; 85025

== ENCOUNTER → 2024-06-14 | Outpatient (CLI) | payer MEDICARE ==
[2024-06-14 18:38] LABS: BUN/Creat Ratio 18.03 Ratio (12.00-20.00); Blood Urea Nitrogen 64.9 mg/dL (9.0-27.0); Calcium 8.1 mg/dL (8.7-10.3); Carbon Dioxide 19.9 mmol/L (21.6-31.8); Chloride 110 mmol/L (96-109); Glucose 123 mg/dL (70-110); Magnesium 1.8 mg/dL (1.5-2.4); Potassium 5.1 mmol/L (3.5-5.5); Sodium 140 mmol/L (135-145)
== END | disposition home or self-care (01) ==
LOC: LABWHC1 14:02
DX: Z00.00 Encounter for general adult medical examination without abnormal findings (principal); Z53.9 Procedure and treatment not carried out, unspecified reason
CPT/HCPCS: 36415; 80048; 83735

== ENCOUNTER → 2024-08-17 | Outpatient (CLI) | payer MEDICARE ==
[2024-08-17 15:03] LABS: Basophils # (A) 0.06 X 10*3/uL (0.00-0.10); Basophils % (A) 0.6 %; HCT 33.2 % (37.2-46.3); HGB 10.9 g/dL (12.0-15.0); Lymphocytes # (A) 3.53 X 10*3/uL (0.90-5.00); MCH 28.3 pg (27.0-32.0); MCHC 32.8 g/dL (32.0-37.0); MCV 86.2 FL (80.0-97.0); Mean Platelet Volume 9.7 FL (9.5-12.2); Monocytes # (A) 0.56 X 10*3/uL (0.20-1.00); Monocytes % (A) 5.9 %; NRBC Per 100 WBC 0 X 10*3/uL (0.00-0.01); Neutrophils # (A) 5.22 X 10*3/uL (1.80-7.70); Neutrophils % (A) 54.7 %; Platelet Count 407 X 10*3/uL (140-440); RBC 3.85 X 10*6/uL (4.10-5.20); RDW 14.1 % (11.5-14.5); WBC 9.55 X 10*3/uL (4.50-10.00)
[2024-08-17 15:36] LABS: % Iron Saturation 11.72 (12.00-45.00); Ferritin 68.2 ng/mL (10.0-291.0); Iron 28 UG/DL (50-170); Magnesium 2.2 mg/dL (1.5-2.4); Phosphorus 6.5 mg/dL (2.4-5.1); Total Iron Binding Capacity 239 UG/DL (228-460); Uric Acid 6.5 mg/dL (2.9-7.7)
[2024-08-17 16:02] LABS: Albumin 2.6 g/dL (3.8-4.9); BUN/Creat Ratio 14.11 Ratio (12.00-20.00); Blood Urea Nitrogen 64.9 mg/dL (9.0-27.0); Calcium 8.8 mg/dL (8.7-10.3); Carbon Dioxide 16.6 mmol/L (21.6-31.8); Chloride 103 mmol/L (96-109); Glucose 312 mg/dL (70-110); Sodium 133 mmol/L (135-145)
[2024-08-17 20:56] LABS: Appearance,Urine Clear (Clear); Bilirubin,Urine Negative (Negative); Blood,Urine Moderate (Negative); Color,Urine Yellow (Yellow); Ketones,Urine Trace (Negative); Nitrite,Urine Negative (Negative); PH, Urine 5.5; Specific Gravity,Urine 1.019 (1.001-1.030); Urobilinogen,Urine 0.2 E.U./DL
[2024-08-17 21:17] LABS: Bacteria,Urine None Seen (None Seen)
[2024-08-17 21:26] LABS: Urine Creatinine 87.5 mg/dL (28.0-217.0)
== END | disposition home or self-care (01) ==
LOC: LABWHC1 11:28
PROVIDERS: ATTEND Internal Medicine Nephrology
DX: N18.31 Chronic kidney disease, stage 3a (principal)
CPT/HCPCS: 36415; 80048; 81001; 82040; 82043; 82306; 82570; 82728; 83540; 83550; 83735; 83970; 84100; 84550; 85025

== ENCOUNTER → 2024-09-07 | Outpatient (CLI) | payer MEDICARE ==
[2024-09-07 19:09] LABS: Basophils # (A) 0.07 X 10*3/uL (0.00-0.10); Basophils % (A) 0.4 %; Eosinophils # (A) 0.09 X 10*3/uL (0.04-0.35); Eosinophils % (A) 0.6 %; HCT 35.9 % (37.2-46.3); HGB 11.3 g/dL (12.0-15.0); Immature Grans, Automated 0.60 %; Lymphocytes # (A) 2.52 X 10*3/uL (0.90-5.00); Lymphocytes % (A) 15.6 %; MCH 28.3 pg (27.0-32.0); MCHC 31.5 g/dL (32.0-37.0); MCV 89.8 FL (80.0-97.0); Monocytes # (A) 1.37 X 10*3/uL (0.20-1.00); Monocytes % (A) 8.5 %; NRBC Per 100 WBC 0 X 10*3/uL (0.00-0.01); Neutrophils # (A) 12.02 X 10*3/uL (1.80-7.70); Neutrophils % (A) 74.3 %; Platelet Count 420 X 10*3/uL (140-440); RBC 4.00 X 10*6/uL (4.10-5.20); RDW 14.6 % (11.5-14.5); WBC 16.17 X 10*3/uL (4.50-10.00)
[2024-09-07 19:11] LABS: Albumin 2.7 g/dL (3.8-4.9); Anion Gap 12.70 mmol/L (4.00-12.00); BUN/Creat Ratio 13.40 Ratio (12.00-20.00); Blood Urea Nitrogen 56.3 mg/dL (9.0-27.0); Calcium 8.9 mg/dL (8.7-10.3); Carbon Dioxide 14.3 mmol/L (21.6-31.8); Chloride 114 mmol/L (96-109); Glucose 168 mg/dL (70-110); Magnesium 1.9 mg/dL (1.5-2.4); Potassium 5.0 mmol/L (3.5-5.5); Sodium 141 mmol/L (135-145)
== END | disposition home or self-care (01) ==
LOC: LABWHC1 15:30
PROVIDERS: ATTEND Internal Medicine Nephrology
DX: N18.31 Chronic kidney disease, stage 3a (principal); D63.1 Anemia in chronic kidney disease; N25.81 Secondary hyperparathyroidism of renal origin; R80.9 Proteinuria, unspecified
CPT/HCPCS: 36415; 80048; 82040; 82043; 82570; 83735; 83970; 85025